=== PATIENT | male | born 1945 | race Caucasian/White ===

== ENCOUNTER → 2017-05-23 11:03 | Outpatient (CLI) | payer MEDICARE, SELFPAY ==
[2017-05-23 12:53] LABS: AST(SGOT) 24 U/L (15-37); Alanine Aminotransfer ALT/SGPT 33 U/L (16-61); Alkaline Phosphatase 79 U/L (45-117); Globulin 3.8 g/dL (2.2-4.2); Protein, Total 7.8 g/dL (6.4-8.2)
[2017-05-23 12:54] LABS: Cholesterol 120 mg/dL (200); High Density Lipoprotein 38 mg/dL; Triglycerides 101 mg/dL; Very Low Density Lipoprotein 20 mg/dL (5-40)
== END ==
PROVIDERS: Family Provider Internal Medicine; PCP Internal Medicine; Visit Provider Internal Medicine Cardiovascular Disease
DX: E78.5 Hyperlipidemia, unspecified (principal); I10 Essential (primary) hypertension; I25.10 Atherosclerotic heart disease of native coronary artery without angina pectoris; Z95.1 Presence of aortocoronary bypass graft; Z79.899 Other long term (current) drug therapy
CPT/HCPCS: 36415; 80061; 80076

== ENCOUNTER → 2017-11-14 12:41 | Outpatient (CLI) | payer MEDICARE, SELFPAY ==
[2017-11-14 14:52] LABS: PSA,Total - Annual Screen 1.84 ng/mL (0.00-4.00)
== END ==
PROVIDERS: Family Provider Internal Medicine; PCP Internal Medicine; Visit Provider Urology
DX: Z12.5 Encounter for screening for malignant neoplasm of prostate (principal)
CPT/HCPCS: 36415; 84153; G0103

== ENCOUNTER → 2017-11-15 10:05 | Outpatient (CLI) | payer MEDICARE, SELFPAY ==
[2017-11-15 10:58] LABS: AST(SGOT) 29 U/L (15-37); Alanine Aminotransfer ALT/SGPT 38 U/L (16-61); Albumin, Serum 3.7 g/dL (3.2-5.0); Alkaline Phosphatase 70 U/L (45-117); Bilirubin, Direct 0.16 mg/dL (0.00-0.30); Cholesterol 109 mg/dL (200); Globulin 3.3 g/dL (2.2-4.2); High Density Lipoprotein 34 mg/dL; Triglycerides 109 mg/dL; Very Low Density Lipoprotein 22 mg/dL (5-40)
== END ==
PROVIDERS: Family Provider Internal Medicine; PCP Internal Medicine; Visit Provider Internal Medicine Cardiovascular Disease
DX: E78.5 Hyperlipidemia, unspecified (principal); Z79.899 Other long term (current) drug therapy
CPT/HCPCS: 36415; 80061; 80076

== ENCOUNTER → 2018-05-25 10:36 | Outpatient (CLI) | payer MEDICARE, SELFPAY ==
[2018-02-28 14:22] VITALS: BMI 25.8
[2018-05-25 12:20] LABS: AST(SGOT) 33 U/L (15-37); Alanine Aminotransfer ALT/SGPT 37 U/L (16-61); Albumin, Serum 3.9 g/dL (3.2-5.0); Alkaline Phosphatase 68 U/L (45-117); Bilirubin, Direct 0.15 mg/dL (0.00-0.30); Cholesterol 118 mg/dL (200); Globulin 3.5 g/dL (2.2-4.2); High Density Lipoprotein 38 mg/dL; Protein, Total 7.4 g/dL (6.4-8.2); Triglycerides 116 mg/dL; Very Low Density Lipoprotein 23 mg/dL (5-40)
== END ==
PROVIDERS: Family Provider Internal Medicine; PCP Internal Medicine; Referring Provider Internal Medicine Cardiovascular Disease; Visit Provider Internal Medicine Cardiovascular Disease
DX: E78.5 Hyperlipidemia, unspecified (principal)
CPT/HCPCS: 36415; 80061; 80076

== ENCOUNTER → 2018-12-03 09:37 | Outpatient (CLI) | payer MEDICARE, SELFPAY ==
[2018-08-28 14:04] VITALS: BMI 24.0
[2018-12-03 11:40] LABS: AST(SGOT) 26 U/L (15-37); Alanine Aminotransfer ALT/SGPT 28 U/L (16-61); Albumin, Serum 3.6 g/dL (3.2-5.0); Alkaline Phosphatase 68 U/L (45-117); Bilirubin, Direct 0.12 mg/dL (0.00-0.30); Cholesterol 95 mg/dL (200); Globulin 3.5 g/dL (2.2-4.2); High Density Lipoprotein 35 mg/dL; Protein, Total 7.1 g/dL (6.4-8.2); Triglycerides 92 mg/dL; Very Low Density Lipoprotein 18 mg/dL (5-40)
[2018-12-03 15:27] LABS: PSA,Total - Annual Screen 1.49 ng/mL (0.00-4.00)
== END ==
PROVIDERS: Physician Assistant Medical; Urology; Family Provider Internal Medicine; PCP Internal Medicine; Referring Provider Internal Medicine Cardiovascular Disease; Visit Provider Internal Medicine Cardiovascular Disease
DX: E78.5 Hyperlipidemia, unspecified (principal); Z12.5 Encounter for screening for malignant neoplasm of prostate
CPT/HCPCS: 36415; 80061; 80076; 84153; G0103

== ENCOUNTER → 2019-06-23 10:29 | Outpatient (CLI) | payer MEDICARE, SELFPAY ==
[2019-03-12 14:09] VITALS: BMI 24.5
[2019-06-23 12:09] LABS: AST(SGOT) 28 U/L (15-37); Alanine Aminotransfer ALT/SGPT 42 U/L (16-61); Albumin, Serum 3.8 g/dL (3.2-5.0); Alkaline Phosphatase 78 U/L (45-117); Bilirubin, Direct 0.14 mg/dL (0.00-0.30); Cholesterol 114 mg/dL (200); Globulin 3.9 g/dL (2.2-4.2); High Density Lipoprotein 40 mg/dL; Protein, Total 7.7 g/dL (6.4-8.2); Triglycerides 104 mg/dL; Very Low Density Lipoprotein 21 mg/dL (5-40)
== END ==
PROVIDERS: PCP Internal Medicine; Referring Provider Physician Assistant Medical; Visit Provider Physician Assistant Medical
DX: E78.00 Pure hypercholesterolemia, unspecified (principal); E78.5 Hyperlipidemia, unspecified
CPT/HCPCS: 36415; 80061; 80076

== ENCOUNTER → 2020-02-03 10:24 | Outpatient (CLI) | payer MEDICARE, SELFPAY ==
[2019-09-04 15:22] VITALS: BMI 24.5
[2020-02-03 11:31] LABS: AST(SGOT) 43 U/L (15-37); Alanine Aminotransfer ALT/SGPT 60 U/L (16-61); Albumin, Serum 3.8 g/dL (3.2-5.0); Alkaline Phosphatase 99 U/L (45-117); Bilirubin, Direct 0.17 mg/dL (0.00-0.30); Cholesterol 96 mg/dL (200); Globulin 4.1 g/dL (2.2-4.2); High Density Lipoprotein 35 mg/dL; PSA,Total - Annual Screen 1.22 ng/mL (0.00-4.00); Protein, Total 7.9 g/dL (6.4-8.2); Triglycerides 87 mg/dL; Very Low Density Lipoprotein 17 mg/dL (5-40)
== END ==
PROVIDERS: PCP Internal Medicine; Referring Provider Physician Assistant Medical; Visit Provider Physician Assistant Medical
DX: Z12.5 Encounter for screening for malignant neoplasm of prostate (principal); E78.00 Pure hypercholesterolemia, unspecified
CPT/HCPCS: 36415; 80061; 80076; 84153; G0103

== ENCOUNTER → 2020-02-16 15:07 | Outpatient (CLI) | payer MEDICARE, SELFPAY ==
[2019-09-04 15:22] VITALS: BMI 24.5
--- NOTE | 2020-02-16 15:09 | US_ITS ---
STUDY: RENAL ULTRASOUND - COMPLETE REASON FOR EXAM: Male, 74 years old. CKD 3 TECHNIQUE: Ultrasound evaluation of the kidneys was performed with real-time and static palomino-scale imaging. COMPARISON: None. FINDINGS: RIGHT KIDNEY: Normal location of the right kidney, which is normal in size. The right kidney measures 9.7 x 5.0 x 4.9 cm. There is a normal cortex of the right kidney. The renal cortex measures 1.4 cm. There is no right renal mass or cyst. There are no right renal calculi. There is no right hydronephrosis. DISTAL RIGHT URETER: There is non-visualization of the distal right ureter. There is a visualized right ureteral jet. LEFT KIDNEY: Normal location of the left kidney, which is normal in size. The left kidney measures 10.5 x 4.9 x 5.3 cm. There is a normal cortex of the left kidney. The renal cortex measures 1.5 cm. There is no left renal mass or cyst. There are no left renal calculi. There is no left hydronephrosis. DISTAL LEFT URETER: There is non-visualization of the distal left ureter. There is a visualized left ureteral jet. BLADDER: The partially distended urinary bladder has a volume of 29 ml. US/Kidney and Bladder IMPRESSION: Normal ultrasound of the kidneys. Incompletely distended urinary bladder limiting evaluation. Electronically Signed: Bryan Rodríguez DO at 23:53 EDT Tel [phone], Service support ,
== END ==
PROVIDERS: PCP Internal Medicine; Referring Provider Internal Medicine Nephrology; Visit Provider Internal Medicine Nephrology
DX: N18.31 Chronic kidney disease, stage 3a (principal)
CPT/HCPCS: 76770

== ENCOUNTER → 2020-02-24 16:30 | Outpatient (CLI) | payer MEDICARE, SELFPAY ==
[2019-09-04 15:22] VITALS: BMI 24.5
--- NOTE | 2020-02-24 | CYSPIN_PTH ---
PATIENT: SEDA ACUNA LOC: [facility] U#:[id number] AGE/SX: 79/M ROOM: RE02/24/[address]: Dr. Darrius Singh MD : 1945 BED: DIS: SPEC #: [id number] RECD: 02/25/20 06:38 STATUS: PRADEEP REVanessa #: [id number] LOREN: 02/24/20 00:[address]: Darrius Singh DEPT: CYTOLOGY RECD BY: Katherin Palencia ENTERED: 02/25/20 06:38 SP TYPE: CYSPIN FL OTHR DR: Dr. Prince Celeste MD Tissues: Urine Procedures: Pap Stain (control) Special Stain Group II Cytospin Fluid HEADER OPERATION: Not noted PRE-OP DIAGNOSIS: Malignant neoplasm of bladder TISSUE SUBMITTED: Urine for cytology DIAGNOSIS CYTOLOGY Urine for cytology (cytospin): Rare atypical urothelial cells present. AM:perfecto 02/26/20 CYTOLOGY STUDY Slides are reviewed. CYTOLOGY GROSS Received is 25 ml of yellow cloudy fluid labeled with the patient's name and and designated per the requisition as urine. Submitted for cytology preparation. / perfecto 02/25/20 TC:5 CPT: 20828
[2020-02-24 18:00] LABS: Cytology, Body Fluid / CSF SEE PATHOLOGY REPORT
== END ==
PROVIDERS: PCP Internal Medicine; Visit Provider Urology
DX: Z85.51 Personal history of malignant neoplasm of bladder (principal)
CPT/HCPCS: 88108; 88313

== ENCOUNTER → 2020-03-09 10:03 | Outpatient (CLI) | payer MEDICARE, SELFPAY ==
[2019-09-04 15:22] VITALS: BMI 24.5
[2020-03-09 11:53] LABS: PTHIN 16.2 pg/mL (18.4-80.1)
[2020-03-09 11:57] LABS: Albumin, Serum 3.8 g/dL (3.2-5.0); BUN 22 mg/dL (7-18); BUN/Creat Ratio 12.9 RATIO (10-20); Calcium,Total 9.4 mg/dL (8.5-10.1); Chloride 100 mmol/L (98-107); Creatinine, Serum 1.71 mg/dL (0.70-1.30); EST Glomerular Filtration Rate 42 mL/min (>60); Est Glom Filt Rate - Afr Amer 51 mL/min (>60); Glucose 119 mg/dL (74-106); Phosphorus 2.4 mg/dL (2.5-4.9); Potassium 3.4 mmol/L (3.5-5.1); Sodium Level 139 mmol/L (136-145)
== END ==
PROVIDERS: PCP Internal Medicine; Referring Provider Internal Medicine Nephrology; Visit Provider Internal Medicine Nephrology
DX: N18.31 Chronic kidney disease, stage 3a (principal)
CPT/HCPCS: 36415; 80069; 83970

== ENCOUNTER → 2020-05-06 09:16 | Outpatient (CLI) | payer MEDICARE, SELFPAY ==
[2019-09-04 15:22] VITALS: BMI 24.5
[2020-05-06 10:10] LABS: Albumin, Serum 4.1 g/dL (3.2-5.0); BUN 28 mg/dL (7-18); BUN/Creat Ratio 16.5 RATIO (10-20); Calcium,Total 9.4 mg/dL (8.5-10.1); Chloride 105 mmol/L (98-107); EST Glomerular Filtration Rate 42 mL/min (>60); Est Glom Filt Rate - Afr Amer 51 mL/min (>60); Glucose 125 mg/dL (74-106); Phosphorus 3.2 mg/dL (2.5-4.9); Potassium 3.7 mmol/L (3.5-5.1); Sodium Level 138 mmol/L (136-145)
== END ==
PROVIDERS: PCP Internal Medicine; Referring Provider Internal Medicine Nephrology; Visit Provider Internal Medicine Nephrology
DX: N17.9 Acute kidney failure, unspecified (principal)
CPT/HCPCS: 36415; 80069

== ENCOUNTER → 2020-07-28 10:00 | Outpatient (CLI) | payer MEDICARE, SELFPAY ==
[2020-05-24 14:15] VITALS: BMI 25.0
[2020-07-28 10:35] LABS: Hematocrit 37.2 % (40-54); Hemoglobin 12.1 g/dL (13.0-16.5); Mean Corp Hgb Conc 32.5 g/dL (32-36); Mean Corpuscular Hgb 31.3 pg (27.0-32.0); Mean Corpuscular Volume 96.4 fL (80-94); Mean Platelet Vol. 10.3 fl (6.2-12.0); Platelet Count 228 K/mm3 (150-450); RBC Distribution Width CV 13.8 % (11.6-14.6); Red Blood Count 3.86 M/mm3 (4.6-6.2)
[2020-07-28 11:04] LABS: AST(SGOT) 28 U/L (15-37); Alanine Aminotransfer ALT/SGPT 37 U/L (16-61); Albumin, Serum 3.7 g/dL (3.2-5.0); Alkaline Phosphatase 87 U/L (45-117); Anion Gap 3 (5-15); BUN 23 mg/dL (7-18); BUN/Creat Ratio 14.8 RATIO (10-20); Bilirubin, Direct 0.21 mg/dL (0.00-0.30); Calcium,Total 9.1 mg/dL (8.5-10.1); Chloride 101 mmol/L (98-107); Cholesterol 97 mg/dL (200); Creatinine, Serum 1.55 mg/dL (0.70-1.30); EST Glomerular Filtration Rate 47 mL/min (>60); Est Glom Filt Rate - Afr Amer 57 mL/min (>60); Globulin 3.8 g/dL (2.2-4.2); Glucose 139 mg/dL (74-106); High Density Lipoprotein 44 mg/dL; Phosphorus 3.1 mg/dL (2.5-4.9); Potassium 3.7 mmol/L (3.5-5.1); Protein, Total 7.5 g/dL (6.4-8.2); Sodium Level 137 mmol/L (136-145); Triglycerides 54 mg/dL; Very Low Density Lipoprotein 11 mg/dL (5-40)
[2020-07-28 11:05] LABS: Protein, Urine (Random) 15.7 mg/dL (<11.9); Protein:Creat Ratio 469 mg/g CRE (0-200)
[2020-07-28 11:27] LABS: PTHIN 32.7 pg/mL (18.4-80.1)
== END ==
PROVIDERS: Physician Assistant Medical; PCP Internal Medicine; Referring Provider Internal Medicine Nephrology; Visit Provider Internal Medicine Nephrology
DX: N18.31 Chronic kidney disease, stage 3a (principal); E11.9 Type 2 diabetes mellitus without complications
CPT/HCPCS: 36415; 80048; 80061; 80076; 82570; 83970; 84100; 84156; 85027

== ENCOUNTER → 2020-12-01 14:06 | Outpatient (CLI) | payer MEDICARE, SELFPAY ==
[2020-05-24 14:15] VITALS: BMI 25.0
[2020-11-23 12:46] VITALS: BMI 24.5
--- NOTE | 2020-12-01 15:18 | NEURO ---
NCS and/or EMG Patient Report Ordering Doctor: Robert Miles DATE OF SERVICE: 12/01/20 Donell Menchaca presents for electrodiagnostic testing of the upper limbs. He reports numbness and tingling in both hands, worse on the right side. Electrodiagnostic findings: Median motor nerve demonstrates prolonged distal latency bilaterally with reduced conduction velocity on the right side. Normal ulnar motor response bilaterally prolonged right median F wave. Prolonged median sensory latency at the wrist and palm bilaterally. On needle EMG, all muscles tested in the upper limbs showed no evidence of denervation with normal motor unit action potentials. Electrodiagnostic impression: This is an abnormal study in the upper limbs. 1. Electrodiagnostic findings demonstrate bilateral median mononeuropathy. This is consistent with a moderate left carpal tunnel syndrome and an advanced right carpal tunnel syndrome. 2. No electrodiagnostic evidence is noted for cervical radiculopathy.
== END ==
PROVIDERS: PCP Internal Medicine; Referring Provider Orthopaedic Surgery; Visit Provider Orthopaedic Surgery
DX: G56.01 Carpal tunnel syndrome, right upper limb (principal); M54.2 Cervicalgia
CPT/HCPCS: 95886; 95913

== ENCOUNTER → 2021-02-01 10:41 | Outpatient (CLI) | payer MEDICARE, SELFPAY ==
[2020-05-24 14:15] VITALS: BMI 25.0
[2021-02-01 12:37] LABS: Protein, Urine (Random) 14.2 mg/dL (<11.9); Protein:Creat Ratio 97 mg/g CRE (0-200)
[2021-02-01 12:43] LABS: AST(SGOT) 26 U/L (15-37); Alanine Aminotransfer ALT/SGPT 36 U/L (16-61); Albumin, Serum 3.5 g/dL (3.2-5.0); Alkaline Phosphatase 72 U/L (45-117); Bilirubin, Direct 0.16 mg/dL (0.00-0.30); Cholesterol 94 mg/dL (200); Globulin 3.8 g/dL (2.2-4.2); High Density Lipoprotein 40 mg/dL; Protein, Total 7.3 g/dL (6.4-8.2); Triglycerides 73 mg/dL; Very Low Density Lipoprotein 15 mg/dL (5-40)
[2021-02-02 09:12] LABS: Anion Gap 5 (5-15); BUN 30 mg/dL (7-18); BUN/Creat Ratio 16.8 RATIO (10-20); Calcium,Total 9.2 mg/dL (8.5-10.1); Chloride 105 mmol/L (98-107); Creatinine, Serum 1.79 mg/dL (0.70-1.30); EST Glomerular Filtration Rate 40 mL/min (>60); Est Glom Filt Rate - Afr Amer 48 mL/min (>60); Glucose 127 mg/dL (74-106); Phosphorus 3.1 mg/dL (2.5-4.9); Potassium 4.1 mmol/L (3.5-5.1); Sodium Level 138 mmol/L (136-145)
== END ==
PROVIDERS: Internal Medicine Cardiovascular Disease; PCP Internal Medicine; Visit Provider Internal Medicine Nephrology
DX: E78.00 Pure hypercholesterolemia, unspecified (principal); N18.32 Chronic kidney disease, stage 3b; E11.9 Type 2 diabetes mellitus without complications
CPT/HCPCS: 36415; 80048; 80061; 80076; 82570; 84100; 84156

== ENCOUNTER 2021-05-10 10:49 | Outpatient (CLI) | payer MEDICARE, SELFPAY ==
[2021-05-10 12:03] LABS: Albumin, Serum 3.9 g/dL (3.2-5.0); BUN 25 mg/dL (7-18); BUN/Creat Ratio 14.5 RATIO (10-20); Calcium,Total 9.4 mg/dL (8.5-10.1); Chloride 103 mmol/L (98-107); Creatinine, Serum 1.73 mg/dL (0.70-1.30); EST Glomerular Filtration Rate 41 mL/min (>60); Est Glom Filt Rate - Afr Amer 50 mL/min (>60); Glucose 155 mg/dL (74-106); Phosphorus 2.6 mg/dL (2.5-4.9); Potassium 3.8 mmol/L (3.5-5.1); Sodium Level 136 mmol/L (136-145)
== END 2021-05-10 23:59 | disposition short-term general hospital (02) ==
LOC: LAB 10:51
PROVIDERS: PCP Internal Medicine; Referring Provider Internal Medicine Nephrology; Visit Provider Internal Medicine Nephrology
DX: N18.32 Chronic kidney disease, stage 3b (principal)
CPT/HCPCS: 36415; 80069

== ENCOUNTER 2021-07-11 09:13 | Outpatient (CLI) | payer MEDICARE, SELFPAY ==
--- NOTE | 2021-07-11 09:17 | CYSPIN_PTH ---
PATIENT: SEDA ACUNA LOC: LAB U#:[id number] AGE/SX: 75/M ROOM: RE07/11/[address]: Dr. Alayna Diamond DO : 1945 BED: DIS: 07/11/2021 SPEC #: [id number] RECD: 07/11/21 10:22 STATUS: PRADEEP MIMAVanessa #: [id number] LOREN: 07/11/21 09:[address]: Alayna Diamond DEPT: CYTOLOGY RECD BY: Katherin Palencia ENTERED: 07/11/21 10:22 SP TYPE: CYSPIN FL OTHR DR: MD Dr. Prince Monge MD Tissues: Urine Procedures: Pap Stain (control) Special Stain Group II Cytospin Fluid HEADER OPERATION: Not noted PRE-OP DIAGNOSIS: History of malignant neoplasm of bladder TISSUE SUBMITTED: Urine for cytology DIAGNOSIS CYTOLOGY Urine for cytology (cytospin): Negative for malignant cells. See comment. AM:perfecto 07/11/2021 COMMENT The specimen is markedly hypocellular. Clinical correlation is suggested. CYTOLOGY STUDY Slides are reviewed. CYTOLOGY GROSS Received is 5 ml of light yellow clear fluid labeled with the patient's name and and designated per the requisition as urine. Submitted for cytology preparation. / perfecto 07/11/2021 TC:5 CPT: 81087
[2021-07-11 09:51] LABS: Cytology, Body Fluid / CSF SEE PATHOLOGY REPORT
[2021-07-11 10:34] LABS: Protein, Urine (Random) 10.7 mg/dL (<11.9); Protein:Creat Ratio 302 mg/g CRE (0-200)
[2021-07-11 10:39] LABS: BUN 21 mg/dL (7-18); BUN/Creat Ratio 13.4 RATIO (10-20); Calcium,Total 9.7 mg/dL (8.5-10.1); Chloride 104 mmol/L (98-107); Creatinine, Serum 1.57 mg/dL (0.70-1.30); EST Glomerular Filtration Rate 46 mL/min (>60); Est Glom Filt Rate - Afr Amer 56 mL/min (>60); Glucose 162 mg/dL (74-106); PSA,Total- Diagnostic 1.29 ng/mL (0.0-4.0); Phosphorus 3.1 mg/dL (2.5-4.9); Potassium 3.6 mmol/L (3.5-5.1); Sodium Level 137 mmol/L (136-145)
== END 2021-07-11 23:59 | disposition home or self-care (01) ==
PROVIDERS: PCP Internal Medicine; Referring Provider Internal Medicine Nephrology; Visit Provider Internal Medicine Nephrology
DX: N18.32 Chronic kidney disease, stage 3b (principal); E11.22 Type 2 diabetes mellitus with diabetic chronic kidney disease; R97.20 Elevated prostate specific antigen [PSA]; Z85.51 Personal history of malignant neoplasm of bladder
CPT/HCPCS: 36415; 80069; 82570; 84153; 84156; 88108; 88313

== ENCOUNTER 2021-08-10 10:34 | Outpatient (CLI) | payer MEDICARE, SELFPAY ==
[2021-08-10 11:49] LABS: AST(SGOT) 42 U/L (15-37); Alanine Aminotransfer ALT/SGPT 63 U/L (16-61); Albumin, Serum 3.6 g/dL (3.2-5.0); Alkaline Phosphatase 92 U/L (45-117); Cholesterol 112 mg/dL (200); Globulin 4.2 g/dL (2.2-4.2); High Density Lipoprotein 37 mg/dL; Protein, Total 7.8 g/dL (6.4-8.2); Triglycerides 145 mg/dL; Very Low Density Lipoprotein 29 mg/dL (5-40)
== END 2021-08-10 23:59 | disposition home or self-care (01) ==
LOC: LAB 10:36
PROVIDERS: PCP Internal Medicine; Referring Provider Nurse Practitioner Family; Visit Provider Nurse Practitioner Family
DX: E78.00 Pure hypercholesterolemia, unspecified (principal)
CPT/HCPCS: 36415; 80061; 80076

== ENCOUNTER → 2021-10-21 | Outpatient (CLI) | payer MEDICARE, SELFPAY ==
--- NOTE | 2021-10-21 06:41 | ECHOD_ITS ---
Reason For Study: s/p CABG Procedure This was a 2D Doppler, Color Flow transthoracic echocardiogram. The exam was of adequate technical quality. Exam performed in department. Left Ventricle Normal LV size. Segmental dysfunction with preserved ejection fraction (see wall motion). The estimated ejection fraction is 60 %. No evidence for diastolic dysfunction. Infero-Basal: Hypokinetic. Mid-Inferior: Hypokinetic. Right Ventricle Normal RV size. Normal systolic function. Atria The left atrium is mildly enlarged. Normal right atrium. No doppler evidence for ASD. Mitral Valve There is no mitral annular calcification. Normal mitral valve. Mild (1+) mitral valve insufficiency. Tricuspid Valve Normal tricuspid valve. Moderate (2+) tricuspid valve insufficiency. Right ventricular systolic pressure estimated to be 36 mmHg. Aortic Valve Trisinus/trileaflet aortic valve. Mild focal aortic valve calcification. Trivial aortic valve insufficiency. Pulmonic Valve The pulmonic valve is not well visualized. Trivial pulmonic valve insufficiency. Great Vessels Normal sized aortic root. Pericardium/Pleural No pericardial effusion. MMode/2D Measurements & Calculations LVIDd: 4.9 cm IVSd: 0.80 cm Ao root diam: 3.0 cm LVIDs: 3.3 cm LVPWd: 0.88 cm LA dimension: 4.0 cm RVDd: 3.8 cm FS: 31.7 % LAV(MOD-bp): 56.4 ml LA A4 area: 19.9 cm2 RA A4 area: 17.8 cm2 LAV(MOD-bp) Indexed: 32.1 ml/m2 LAV(MOD-sp2): 51.4 ml LAV(MOD-sp4): 55.3 ml Time Measurements MV dec time: 0.27 sec Doppler Measurements & Calculations MV E max kannan: 70.2 cm/sec Lat Peak E' Kannan: 8.2 cm/sec MV V2 max: 91.1 cm/sec MV A max kannan: 92.1 cm/sec E/E' lat: 8.6 MV max P.3 mmHg MV E/A: 0.76 MV V2 mean: 40.6 cm/sec MV mean P.87 mmHg MV V2 VTI: 23.4 cm MV P1/2t max kannan: 79.8 cm/sec Ao V2 max: 125.6 cm/sec AI max kannan: 335.2 cm/sec MV P1/2t: 50.2 msec Ao max P.3 mmHg AI max P.0 mmHg MV dec slope: 465.9 cm/sec2 AI dec slope: 142.3 cm/sec2 MVA(P1/2t): 4.4 cm2 AI P1/2t: 690.0 msec LV V1 max: 75.9 cm/sec PA V2 max: 101.1 cm/sec TR max kannan: 287.5 cm/sec LV V1 max P.3 mmHg TR max P.1 mmHg ECHO/Echo Complete Interpretation Summary Segmental dysfunction with preserved ejection fraction (see wall motion). The estimated ejection fraction is 60 %. The left atrium is mildly enlarged. Mild (1+) mitral valve insufficiency. Moderate (2+) tricuspid valve insufficiency. Mild focal aortic valve calcification. Trivial aortic valve insufficiency. Trivial pulmonic valve insufficiency. Right ventricular systolic pressure estimated to be 36 mmHg. No evidence for diastolic dysfunction. Ordering Physician: Hung Markham Referring Physician: Prince Celeste M.D. Performed By: Nato Samuels RCS
--- NOTE | 2021-10-21 13:41 | STRESSREP ---
Stress Test Report Date: 10-21-2021 Procedure: Exercise tolerance test/imaging study Indications: Fatigue; CAD; CABG Consent: Per the patient Procedure: The patient exercised on a Xu protocol for 6 minutes and 30 seconds completing Stage II and 30 seconds of Stage III achieving a peak heart rate of 148 bpm (102% predicted maximal heart rate) with a peak blood pressure 170/80 mmHg and a peak MET capacity of 8 METs. The baseline ECG demonstrated normal sinus rhythm; nonspecific T wave abnormality. The peak exercise ECG demonstrated continued sinus rhythm with beat to beat nonspecific ST/T wave abnormality. There was an occasional PVC pretest, during exercise, and recovery and occasional ventricular couplet during exercise. The functional capacity was considered good. There was no complaint of chest discomfort during exercise or recovery. The examination was discontinued secondary to dyspnea. Impression: 1. Technically adequate (percent predicted maximal heart rate greater than 85%) exercise tolerance test 2. Peak exercise ECG with beat to beat nonspecific ST/T wave abnormality 3. There was an occasional PVC pretest, during exercise, and recovery and an occasional ventricular couplet during exercise 4. Nuclear images pending Myocardial perfusion imaging study: Technique: The patient was injected with 11.8 mCi of technetium 99m Cardiolite and subsequently rest SPECT Cardiolite nuclear imaging was obtained in the horizontal long, vertical long, and short axis views. The patient exercised on a Xu protocol for 6 minutes and 30 seconds completing Stage II and 30 seconds of Stage III achieving a peak heart rate of 148 bpm (102% predicted maximal heart rate) with a peak blood pressure 170/80 mmHg and a peak MET capacity of 8 METs. The patient was injected with 34.3 mCi of technetium 99m Cardiolite and subsequently stress SPECT Cardiolite nuclear imaging was obtained in the horizontal long, vertical long, and short axis views. A gated Cardiolite study at peak stress was obtained. Interpretation: Rest and stress SPECT Cardiolite nuclear imaging status post realignment, normalization, and attenuation correction, demonstrates on the preattenuation correction images the appearance of diminished myocardial perfusion/tracer uptake in portions of the basal inferolateral segments without significant change between rest and stress. These findings are also noted on the rest and stress polar map images. On the post attenuation correction images there appears to be relative uniform tracer uptake and myocardial perfusion appearing within normal limits. There is diminished end-systolic thickening and brightening in the aforementioned areas.. The gated Cardiolite study demonstrates myocardial thickening and inward wall motion. The reported LVEF is 67%. Impression: 1. Rest and stress SPECT Cardiolite nuclear imaging demonstrate demonstrate on the preattenuation correction images and area of diminished myocardial perfusion/tracer uptake in portions of the basal inferolateral segments without significant change between rest and stress which is not reproduced on the post attenuation correction images. The aforementioned findings may be compatible with an area of previous myocardial injury/infarction, however, there are no myocardial perfusion changes considered diagnostic for associated stress-induced myocardial ischemia.. 2. The gated Cardiolite study reports an LVEF of 67%. This note was generated with [employer] software. It may contain incorrect words, spelling, and punctuation that were not noted in checking the note before signing.
== END | disposition home or self-care (01) ==
PROVIDERS: PCP Internal Medicine; Referring Provider Internal Medicine Cardiovascular Disease; Visit Provider Internal Medicine Cardiovascular Disease
DX: I25.10 Atherosclerotic heart disease of native coronary artery without angina pectoris (principal); R53.83 Other fatigue; Z95.1 Presence of aortocoronary bypass graft
CPT/HCPCS: 78452; 93017; 93306; A9500; A4216

== ENCOUNTER → 2022-02-15 | Outpatient (CLI) | payer MEDICARE, SELFPAY ==
[2022-02-15 11:03] LABS: Protein, Urine (Random) 13.5 mg/dL (<11.9); Protein:Creat Ratio 199 mg/g CRE (0-200)
[2022-02-15 11:28] LABS: AST(SGOT) 19 U/L (15-37); Alanine Aminotransfer ALT/SGPT 29 U/L (16-61); Albumin, Serum 3.7 g/dL (3.2-5.0); Alkaline Phosphatase 73 U/L (45-117); Anion Gap 4 (5-15); BUN 29 mg/dL (7-18); BUN/Creat Ratio 18.4 RATIO (10-20); Bilirubin, Direct 0.16 mg/dL (0.00-0.30); Calcium,Total 9.1 mg/dL (8.5-10.1); Chloride 102 mmol/L (98-107); Cholesterol 111 mg/dL (200); Creatinine, Serum 1.58 mg/dL (0.70-1.30); EST Glomerular Filtration Rate 46 mL/min (>60); Est Glom Filt Rate - Afr Amer 55 mL/min (>60); Glucose 154 mg/dL (74-106); High Density Lipoprotein 40 mg/dL; Phosphorus 2.7 mg/dL (2.5-4.9); Potassium 3.8 mmol/L (3.5-5.1); Protein, Total 7.7 g/dL (6.4-8.2); Sodium Level 136 mmol/L (136-145); Triglycerides 116 mg/dL; Very Low Density Lipoprotein 23 mg/dL (5-40)
== END | disposition home or self-care (01) ==
LOC: LAB 10:06
PROVIDERS: Nurse Practitioner Family; PCP Internal Medicine; Referring Provider Internal Medicine Nephrology; Visit Provider Internal Medicine Nephrology
DX: N18.32 Chronic kidney disease, stage 3b (principal); E11.22 Type 2 diabetes mellitus with diabetic chronic kidney disease
CPT/HCPCS: 36415; 80048; 80061; 80076; 82570; 84100; 84156

== ENCOUNTER → 2022-07-26 | Outpatient (CLI) | payer MEDICARE, SELFPAY ==
[2022-07-26 11:58] LABS: AST(SGOT) 23 U/L (15-37); Alanine Aminotransfer ALT/SGPT 29 U/L (16-61); Albumin, Serum 3.6 g/dL (3.2-5.0); Alkaline Phosphatase 71 U/L (45-117); Bilirubin, Direct 0.17 mg/dL (0.00-0.30); Cholesterol 100 mg/dL (200); Globulin 3.9 g/dL (2.2-4.2); High Density Lipoprotein 38 mg/dL; PSA,Total - Annual Screen 1.13 ng/mL (0.00-4.00); Protein, Total 7.5 g/dL (6.4-8.2); Triglycerides 93 mg/dL; Very Low Density Lipoprotein 19 mg/dL (5-40)
== END | disposition home or self-care (01) ==
LOC: LAB 10:46
PROVIDERS: Nurse Practitioner Family; PCP Internal Medicine; Referring Provider Urology; Visit Provider Urology
DX: E11.22 Type 2 diabetes mellitus with diabetic chronic kidney disease (principal); N18.32 Chronic kidney disease, stage 3b; Z12.5 Encounter for screening for malignant neoplasm of prostate
CPT/HCPCS: 36415; 80061; 80076; 84153; G0103

== ENCOUNTER → 2022-09-20 | Outpatient (CLI) | payer MEDICARE, SELFPAY ==
[2022-09-20 11:56] LABS: Protein, Urine (Random) 29.3 mg/dL (<11.9); Protein:Creat Ratio 97 mg/g CRE (0-200)
[2022-09-20 12:00] LABS: Albumin, Serum 3.6 g/dL (3.2-5.0); BUN 31 mg/dL (7-18); BUN/Creat Ratio 16.5 RATIO (10-20); Calcium,Total 9.5 mg/dL (8.5-10.1); Chloride 101 mmol/L (98-107); Creatinine, Serum 1.88 mg/dL (0.70-1.30); EST Glomerular Filtration Rate 37 mL/min (>60); Est Glom Filt Rate - Afr Amer 45 mL/min (>60); Glucose 149 mg/dL (74-106); Phosphorus 2.6 mg/dL (2.5-4.9); Sodium Level 136 mmol/L (136-145)
== END | disposition home or self-care (01) ==
LOC: LAB 10:58
PROVIDERS: PCP Internal Medicine; Visit Provider Internal Medicine Nephrology
DX: E11.22 Type 2 diabetes mellitus with diabetic chronic kidney disease (principal); N18.32 Chronic kidney disease, stage 3b
CPT/HCPCS: 36415; 80069; 82570; 84156

== ENCOUNTER → 2022-09-27 | Outpatient (CLI) | payer MEDICARE, SELFPAY ==
[2022-09-27 18:15] LABS: Bacteria 0 SEEN /hpf (None Seen); Mucous, Urine 0 SEEN /hpf (<or=2+); Red Blood Cells-Urine 0 SEEN /hpf (0-5); Squamous Epithelial Cells - UA 0 SEEN /hpf (0-5); White Blood Cells 0 SEEN /hpf (0-5)
[2022-09-27 18:26] LABS: Color, Urine Yellow (Yellow); Glucose, Dipstick 1000 mg/dl (Normal); Ketone-Dipstick Negative (Negative); Leukocyte Esterase-Dipstick Negative /ul (Negative); Nitrite-Dipstick Negative (Negative); Occult Blood-Urine Negative /ul (Negative); Protein-Dipstick Negative (Negative); Urine Bilirubin Dipstick Negative (Negative); Urine Clarity Clear (Clear); Urine Urobilinogen Normal (Normal)
== END | disposition home or self-care (01) ==
PROVIDERS: PCP Internal Medicine; Visit Provider Internal Medicine Nephrology
DX: R30.0 Dysuria (principal)
CPT/HCPCS: 81001; 87086

== ENCOUNTER → 2022-10-25 | Outpatient (CLI) | payer MEDICARE, SELFPAY ==
[2022-10-25 13:40] LABS: Albumin, Serum 3.4 g/dL (3.2-5.0); BUN 32 mg/dL (7-18); BUN/Creat Ratio 18.3 RATIO (10-20); Calcium,Total 8.7 mg/dL (8.5-10.1); Chloride 106 mmol/L (98-107); Creatinine, Serum 1.75 mg/dL (0.70-1.30); EST Glomerular Filtration Rate 40 mL/min (>60); Est Glom Filt Rate - Afr Amer 49 mL/min (>60); Glucose 144 mg/dL (74-106); Phosphorus 2.7 mg/dL (2.5-4.9); Sodium Level 137 mmol/L (136-145)
== END | disposition home or self-care (01) ==
LOC: LAB 12:48
PROVIDERS: PCP Internal Medicine; Referring Provider Internal Medicine Nephrology; Visit Provider Internal Medicine Nephrology
DX: N17.9 Acute kidney failure, unspecified (principal); N18.32 Chronic kidney disease, stage 3b
CPT/HCPCS: 36415; 80069

== ENCOUNTER → 2022-11-29 | Outpatient (CLI) | payer MEDICARE, SELFPAY ==
[2022-11-29 11:23] LABS: AST(SGOT) 22 U/L (15-37); Alanine Aminotransfer ALT/SGPT 28 U/L (16-61); CPK Total, Creatine Kinase 54 U/L (39-308); Cholesterol 105 mg/dL (200); High Density Lipoprotein 40 mg/dL; Triglycerides 83 mg/dL; Very Low Density Lipoprotein 17 mg/dL (5-40)
== END | disposition home or self-care (01) ==
LOC: LAB 09:48
PROVIDERS: PCP Internal Medicine; Referring Provider Internal Medicine Cardiovascular Disease; Visit Provider Internal Medicine Cardiovascular Disease
DX: E78.00 Pure hypercholesterolemia, unspecified (principal); I10 Essential (primary) hypertension; I25.10 Atherosclerotic heart disease of native coronary artery without angina pectoris
CPT/HCPCS: 36415; 80061; 82550; 84450; 84460

== ENCOUNTER → 2022-12-26 | Outpatient (CLI) | payer MEDICARE, SELFPAY ==
[2022-12-26 13:37] LABS: Albumin, Serum 3.6 g/dL (3.2-5.0); BUN 26 mg/dL (7-18); BUN/Creat Ratio 16.2 RATIO (10-20); Calcium,Total 9.1 mg/dL (8.5-10.1); Chloride 104 mmol/L (98-107); EST Glomerular Filtration Rate 45 mL/min (>60); Est Glom Filt Rate - Afr Amer 54 mL/min (>60); Glucose 141 mg/dL (74-106); Phosphorus 2.8 mg/dL (2.5-4.9); Potassium 3.9 mmol/L (3.5-5.1); Sodium Level 137 mmol/L (136-145)
== END | disposition home or self-care (01) ==
PROVIDERS: PCP Internal Medicine; Referring Provider Internal Medicine Nephrology; Visit Provider Internal Medicine Nephrology
DX: N18.32 Chronic kidney disease, stage 3b (principal)
CPT/HCPCS: 36415; 80069

== ENCOUNTER → 2023-01-10 | Outpatient (CLI) | payer MEDICARE, SELFPAY ==
--- NOTE | 2023-01-10 13:03 | CDU_ITS ---
Reason For Study: CAD/ASHD Rt. Velocities/BP Lt. Velocities/BP Prox CCA 78.0/11.0 cm/sec. Prox CCA 71.3/10.9 cm/sec. Mid CCA 63.9/13.8 cm/sec. Mid CCA 69.1/8.7 cm/sec. Dist CCA 65.8/14.7 cm/sec. Dist CCA 77.9/12.0 cm/sec. Prox ICA 47.1/11.2 cm/sec. Prox ICA 84.6/9.7 cm/sec. Mid ICA 58.5/14.1 cm/sec. Mid ICA 79.7/12.2 cm/sec. Dist ICA 66.0/19.7 cm/sec. Dist ICA 95.7/18.3 cm/sec. Rt. ICA/CCA = 66.0/63.9=1.0. Lt. ICA/CCA = 95.7/69.1=1.2. Prox ECA 70.5/8.1 cm/sec. Prox ECA 82.3/4.3 cm/sec. Rt. Vert. 43.4/9.4 cm/sec. Lt. Vert. 58.8/14.6 cm/sec. Right Extracranial There is intimal thickening but no significant atherosclerotic plaque noted in the right common carotid artery. There is heterogeneous, irregular atherosclerotic plaque noted in the right internal carotid artery. There is heterogeneous, irregular atherosclerotic plaque noted in the right external carotid artery. Antegrade flow is noted in the right vertebral artery. Left Extracranial There is heterogeneous, irregular atherosclerotic plaque noted in the left common carotid artery. There is heterogeneous, irregular atherosclerotic plaque noted in the left internal carotid artery. There is homogeneous, irregular atherosclerotic plaque noted in the left external carotid artery. Antegrade flow is noted in the left vertebral artery. Procedure Carotid Duplex 37510. This is a Carotid Duplex examination using B-mode, color flow and specral Doppler. Exam performed in department. VL/Carotid Duplex Ultrasound Interpretation Summary Mild (<50%) stenosis right extracranial internal carotid. Mild (<50%) stenosis left extracranial internal carotid. Flow within the vertebral arteries is antegrade bilaterally. Ordering Physician: David Fox Referring Physician: Prince Celeste Performed By: Katharine Sanders, LEANA, RVT
--- NOTE | 2023-01-10 13:03 | ECHOD_ITS ---
Reason For Study: ASHD Procedure This was a 2D Doppler, Color Flow transthoracic echocardiogram. Exam performed in department. Left Ventricle Normal size and thickness. The left ventricular ejection fraction is 65 %. Normal diastology for age. Right Ventricle Normal right ventricle. Atria The left atrium is moderately enlarged. The right atrium is moderately enlarged. Mitral Valve Mild diffuse mitral valve thickening. Moderate (2+) mitral valve insufficiency. Tricuspid Valve Moderate (2+) tricuspid valve insufficiency. Right ventricular systolic pressure estimated to be 39 mmHg. Aortic Valve Trisinus/trileaflet aortic valve. Mild-Moderate (1-2+) aortic valve insufficiency. Pulmonic Valve The pulmonic valve is not well visualized. Mild (1+) pulmonic valve insufficiency. Great Vessels Normal sized aortic root. Pericardium/Pleural No pericardial effusion. MMode/2D Measurements & Calculations LVIDd: 4.6 cm IVSd: 0.78 cm Ao root diam: 3.1 cm LVIDs: 3.2 cm LVPWd: 0.94 cm RVDd: 3.8 cm FS: 30.1 % LAV(MOD-bp): 43.3 ml LVAd ap4: 30.4 cm2 SV(MOD-sp4): 56.4 ml LAV(MOD-bp) Indexed: 24.9 ml/m2 LVLd ap4: 8.4 cm LAV(MOD-sp2): 44.9 ml EDV(MOD-sp4): 90.2 ml LAV(MOD-sp4): 42.8 ml EDV(sp4-el): 92.7 ml LVAs ap4: 16.2 cm2 LVLs ap4: 6.9 cm ESV(MOD-sp4): 33.8 ml ESV(sp4-el): 32.4 ml EF(MOD-sp4): 62.5 % EF(sp4-el): 65.0 % SV(sp4-el): 60.3 ml LA A4 area: 17.0 cm2 LA dimension(2D): 3.6 cm RA A4 area: 14.8 cm2 Time Measurements MV dec time: 0.21 sec Doppler Measurements & Calculations MV E max kannan: 77.8 cm/sec Lat Peak E' Kannan: 10.5 cm/sec Med Peak E' Kannan: 7.6 cm/sec MV A max kannan: 64.3 cm/sec E/E' lat: 7.4 E/E' med: 10.3 MV E/A: 1.2 Ao V2 max: 119.7 cm/sec AI max kannan: 380.4 cm/sec LV V1 max: 62.2 cm/sec Ao max P.7 mmHg AI max P.9 mmHg LV V1 max P.5 mmHg AI dec slope: 240.0 cm/sec2 AI P1/2t: 464.3 msec PA V2 max: 69.8 cm/sec PI end-d kannan: 92.3 cm/sec TR max kannan: 291.9 cm/sec TR max P.1 mmHg ECHO/Echo Complete Interpretation Summary The left ventricular ejection fraction is 65 %. The left atrium is moderately enlarged. The right atrium is moderately enlarged. Moderate (2+) mitral valve insufficiency. Moderate (2+) tricuspid valve insufficiency. Right ventricular systolic pressure estimated to be 39 mmHg. Mild-Moderate (1-2+) aortic valve insufficiency. Ordering Physician: David Fox Referring Physician: ASHA ALVAREZ Performed By: Gina Shirley, LEANA
== END | disposition home or self-care (01) ==
LOC: CVS 12:59
PROVIDERS: PCP Internal Medicine; Referring Provider Internal Medicine Cardiovascular Disease; Visit Provider Internal Medicine Cardiovascular Disease
DX: I25.10 Atherosclerotic heart disease of native coronary artery without angina pectoris (principal); R42 Dizziness and giddiness
CPT/HCPCS: 93306; 93880

== ENCOUNTER → 2023-06-05 | Outpatient (CLI) | payer MEDICARE, SELFPAY ==
[2023-06-05 11:51] LABS: AST(SGOT) 21 U/L (15-37); Alanine Aminotransfer ALT/SGPT 27 U/L (16-61); Albumin, Serum 3.6 g/dL (3.2-5.0); Alkaline Phosphatase 72 U/L (45-117); Bilirubin, Direct 0.19 mg/dL (0.00-0.30); Cholesterol 115 mg/dL (200); Globulin 3.8 g/dL (2.2-4.2); High Density Lipoprotein 42 mg/dL; Protein, Total 7.4 g/dL (6.4-8.2); Triglycerides 101 mg/dL; Very Low Density Lipoprotein 20 mg/dL (5-40)
== END | disposition home or self-care (01) ==
LOC: LAB 10:21
PROVIDERS: PCP Internal Medicine; Referring Provider Nurse Practitioner Family; Visit Provider Nurse Practitioner Family
DX: E78.00 Pure hypercholesterolemia, unspecified (principal)
CPT/HCPCS: 36415; 80061; 80076

== ENCOUNTER 2023-07-17 11:20 | Observation (INO) | payer MEDICARE, SELFPAY ==
[2023-07-17 11:21] VITALS: BP 147/82; PULSE 79; PULSE 80; RESP 14; TEMP 35.5; O2SAT 100; O2SAT 98; BMI 24.0
--- NOTE | 2023-07-17 11:48 | EX.ED.DYSGE1 ---
HPI History of Present Illness Chief Complaint: Rash Informant: patient, spouse/S.O. and family Narrative Narrative: 77-year-old male presenting to the emergency department with the chief complaint of double vision. Patient states that on 07 July he was in his garage and close the door to hit him on top of the head. He states that shortly thereafter he began to have a rash on his scalp. He was seen by primary care on Sunday and referred to dermatology. Dermatology saw him on Sunday and felt that his rash was consistent with shingles and he was started on prednisone and valacyclovir. He also was referred to ophthalmology where he was started on neomycin-polymyxin B-dexamethasone. Yesterday he developed double vision and saw ophthalmology today. During that examination it was noted he had a dilated left pupil. It was fully dilated for examination by ophthalmology. 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 He was sent to the emergency department for evaluation. [facility] Medical History Abnormal result of cardiovascular function study Abnormal stress test Atherosclerotic heart disease of [place] coronary artery without angina pectoris Chest pain, precordial Diabetes mellitus type 2 with peripheral artery disease Dizziness Dyspnea, unspecified Edema Essential hypertension Family history of completed stroke Family history of ischemic heart disease and other diseases of the circulatory system Fatigue Fatigue Herpes zoster Hypertension Long-term use of high-risk medication Old myocardial infarction Pure hypercholesterolemia Home Medications nitroglycerin 0.4 mg sublingual tablet 0.4 mg sublingual Q5M PRN Chest Pain 05/12/14 [History Last Taken Unknown] tamsulosin 0.4 mg capsule 0.4 mg PO DAILY urine flow 05/12/14 [History Last Taken 07/16/23] sildenafil 100 mg tablet (Viagra) 100 mg PO DAILY PRN sexual activity 03/12/19 [History Last Taken Unknown] metformin 500 mg tablet 1,000 mg PO DAILY diabetes 05/24/20 [History Last Taken 07/17/23] acetaminophen 500 mg tablet (Tylenol Extra Strength) 500 mg PO Q6H PRN pain, fever 10/05/21 [History Last Taken Unknown] cetirizine 10 mg tablet 10 mg PO DAILY sinus 10/05/21 [History Last Taken 07/17/23] amlodipine 10 mg tablet 10 mg PO QDAY blood prerssure #90 tabs 10/30/23 [Rx Last Taken 07/17/23] metoprolol tartrate 50 mg tablet 50 mg PO BID heart #180 tabs 02/19/23 [Rx Last Taken 07/17/23 08:52] atorvastatin 40 mg tablet 40 mg PO QHS cholesterol #90 tabs 06/07/23 [Rx Last Taken 07/16/23] glipizide 2.5 mg tablet, extended release 24 hr 2.5 mg PO DAILY diabetes 06/07/23 [History Last Taken 07/17/23] gabapentin 100 mg capsule 200 mg PO QHS shingle pain at night time 07/17/23 [History Last Taken 07/16/23] multivitamin with minerals-folic acid 80 mcg chewable tablet (Centrum Adult 50 Plus) 1 tab PO DAILY suppliment 07/17/23 [History Last Taken 07/17/23] xzlrmvvf-ovwwpwlho-bfdqvcst 3.5 mg/mL-10,000 unit/mL-0.1% eye drops 1 drp LEFT EYE 4X/DAY shingles 07/17/23 [History Last Taken 07/17/23] prednisone 20 mg tablet 20 mg PO DAILY steroid 07/17/23 [History Last Taken 07/17/23] valacyclovir 1 gram tablet 1,000 mg PO TID shingles 07/17/23 [History Last Taken 07/17/23] Allergy/AdvReac Type Severity Reaction Status Date / Time Penicillins Allergy Unknown Verified 06/07/23 13:47 Family History Mother CVA (cerebral vascular accident) Brother CAD (coronary artery disease) Surgical History Aortocoronary bypass status (~06/30/08) History of carpal tunnel surgery Social History (Updated 07/17/23 @ 15:39 by Kiara Gloria) Smoking Status: Former smoker alcohol intake: never ROS ROS ED Constitutional Constitutional ED: Denies chills, fever(s) or weight loss Eyes Eyes: Reports change in vision and diplopia ENT ENT ED: Denies ear pain, rhinorrhea or sore throat Cardiovascular Cardiovascular: Denies chest pain, orthopnea, palpitations or racing heartbeat Respiratory/Chest Respiratory/Chest: Denies cough, dyspnea or orthopnea Gastrointestinal Gastrointestinal: Denies abdominal pain, diarrhea, nausea or vomiting Genitourinary Genitourinary ED: Denies dysuria, hematuria or urinary frequency Musculoskeletal Musculoskeletal: Denies arthralgias or myalgias Integumentary Reports rash; Denies abscess Neurologic Neurologic: Reports paresthesias; Denies headache(s) or weakness Psychiatric Psychiatric: Denies anxiety, depression, suicidal ideation or suicidal thoughts Endocrine Endocrinology: Denies polydipsia, polyphagia or polyuria Allergic/Immunologic Allergic/Immunologic ED: Denies mouth swelling, tongue swelling or urticaria EXAM Physical Exam Const Vital Signs: 07/17/23 11:21 07/17/23 11:21 07/17/23 13:21 Temperature 95.9 F L 98 F Temperature Source Temporal Temporal Pulse Rate 80 79 78 Respiratory Rate 14 14 23 H Blood Pressure 147/82 H 147/82 H 143/74 H Blood Pressure Mean 103 103 97 Pulse Ox 98 100 97 Oxygen Delivery Method Room Air Room Air Room Air 07/17/23 14:11 Temperature 98 F Temperature Source Pulse Rate 77 Respiratory Rate 21 H Blood Pressure 143/74 H Blood Pressure Mean 97 Pulse Ox 97 Oxygen Delivery Method Positive well nourished and well developed General Appearance ED: well developed HEENT Reports normocephalic, head/scalp atraumatic, TM's clear and moist mucous membranes HEENT Narrative: There are healing lesions on the hard palate and gumline of the left side Tympanic Membrane ED: Yes TM's clear Eyes Eyes Narrative: Left pupil is dilated. Double vision resolves if he covers the right eye and it resolves if he covers the left eye. I do not appreciate subconjunctival injection Neck no lymphadenopathy, supple and no JVD Resp normal respiratory effort and clear to auscultation bilaterally Cardio regular rate, regular rhythm and no murmurs GI normal to inspection, nondistended, normoactive bowel sounds and non-tender Palpation: soft Back/Spine no CVA tenderness and normal ROM Extremity normal to inspection General Extremety ED: Negative for edema General Extremity: Negative for edema Neuro oriented x3 and CN's II-XII intact bilaterally Sensorium / Orientation: alert Motor Exam: strength 5/5 throughout Psych mental status grossly normal Mood & Affect: Negative for depressed or tearful Skin no wounds Skin Narrative: There are lesions consistent with a zoster involving the forehead left face left nose left maxillary region. Most of these are starting to be crusted over. There is mild redness of the skin MDM MDM MDM Narrative Medical decision making narrative: To the trauma and then the developing nerve palsy CT of the brain was obtained which does not demonstrate any intracranial hemorrhage or mass. White count elevated 11.5 probable due to steroid use. Creatinine 1.85 with a BUN of 28. Glucose 229 with normal liver enzymes. I spoke with infectious disease (Dr. Trinidad). His recommendation is for IV acyclovir. Continuation of steroids. I spoke with her hospitalist who will be admitting. History & Record Review Discussion w/independent historian: Patient and Family Lab Data Attestation: I reviewed the patient's lab results. Labs: Laboratory Results - last 24 hr 07/17/23 12:00 WBC 11.5 H RBC 4.64 Hgb 14.0 Hct 42.6 MCV 91.8 MCH 30.2 MCHC 32.9 RDW Std Deviation 46.6 H RDW Coeff of Mary 13.7 Plt Count 262 MPV 10.1 Immature Gran % (Auto) 0.400 Neut % (Auto) 88.1 H Lymph % (Auto) 8.3 L [place] % (Auto) 2.9 Eos % (Auto) 0.0 Baso % (Auto) 0.3 Absolute Neuts (auto) 10.1 H Absolute Lymphs (auto) 0.95 Nucleated RBC % 0 Sodium 137 Potassium 3.8 Chloride 101 Carbon Dioxide 26.0 Anion Gap 10 BUN 28 H Creatinine 1.85 H Estim Creat Clear Calc 29.09 Est GFR (MDRD) Af Amer 46 L Est GFR (MDRD) Non-Af 38 L BUN/Creatinine Ratio 15.1 Glucose 229 H Calcium 9.4 Total Bilirubin 0.80 Direct Bilirubin 0.24 AST 21 ALT 28 Alkaline Phosphatase 64 Total Protein 7.7 Albumin 3.7 Globulin 4.0 Radiography Diagnostic Testing: Clinical Impression(s) from Imaging Studies Brain CT 07/17/23 12:32 IMPRESSION: Chronic involutional changes of the brain. Electronically Signed: Favian Jaramillo MD at 13:24 EDT , Management Discussion w/another healthcare provider: Hospitalist (Dr. Yin) and Loss Prevention Guard (ID (Dr. Joyce)) Discharge Plan Dx/Rx/DC Orders Clinical Impression: Diplopia, 6th nerve palsy, Herpes zoster, Diabetes mellitus Disposition Disposition: Acute Care Hospital [facility]
[2023-07-17 12:05] LABS: Absolute Lymphocyte Count 0.95 X10^3/uL (0.83-4.51); Absolute Neutrophil Count 10.1 X10^3/uL (2.0-7.7); Basophil# 0.03 X10^3/uL; Basophil% 0.3 % (0-1); Hematocrit 42.6 % (40-54); Lymphocyte # 0.95 X10^3/ul (0.83-4.51); Lymphocyte % 8.3 % (19-41); Mean Corp Hgb Conc 32.9 g/dL (32-36); Mean Corpuscular Hgb 30.2 pg (27.0-32.0); Mean Corpuscular Volume 91.8 fL (80-94); Mean Platelet Vol. 10.1 fl (6.2-12.0); Monocyte# 0.33 X10^3/uL; Monocyte% 2.9 % (0-10); NRBC Flagged by Analyzer 0 % (0-5); Neutrophil # 10.09 X10^3/uL (2.7-7.7); Neutrophil % 88.1 % (47-70); Platelet Count 262 K/mm3 (150-450); RBC Distribution Width CV 13.7 % (11.6-14.6); RBC Distribution Width SD 46.6 fl (35.1-43.9); Red Blood Count 4.64 M/mm3 (4.6-6.2); White Blood Count 11.5 K/mm3 (4.4-11.0)
[2023-07-17 12:21] LABS: AST(SGOT) 21 U/L (15-37); Alanine Aminotransfer ALT/SGPT 28 U/L (16-61); Albumin, Serum 3.7 g/dL (3.2-5.0); Alkaline Phosphatase 64 U/L (45-117); Anion Gap 10 (5-15); BUN 28 mg/dL (7-18); BUN/Creat Ratio 15.1 RATIO (10-20); Bilirubin, Direct 0.24 mg/dL (0.00-0.30); Calcium,Total 9.4 mg/dL (8.5-10.1); Chloride 101 mmol/L (98-107); Creatinine, Serum 1.85 mg/dL (0.70-1.30); EST Glomerular Filtration Rate 38 mL/min (>60); Est Glom Filt Rate - Afr Amer 46 mL/min (>60); Estimated Creatinine Clearance 29.09 ml/min; Glucose 229 mg/dL (74-106); Potassium 3.8 mmol/L (3.5-5.1); Protein, Total 7.7 g/dL (6.4-8.2); Sodium Level 137 mmol/L (136-145)
--- NOTE | 2023-07-17 12:32 | CT_ITS ---
STUDY: CT BRAIN WITHOUT CONTRAST REASON FOR EXAM: Male, 77 years old. Left facial shingles. RADIATION DOSAGE (If Supplied By Facility): CTDIvol = ( 44.99 ) mGy, DLP = ( 745.49 ) mGycm TECHNIQUE: Transaxial CT imaging of the brain was performed without administration of intravenous contrast material. Individualized dose optimization techniques were used for this CT. COMPARISON: No relevant priors. FINDINGS: Normal soft tissue structures. Normal calvarium. There is mild cerebral atrophy with widening of the extra-axial spaces and ventricular dilatation. There are areas of decreased attenuation within the white matter tracts of the supratentorial brain, consistent with microvascular disease changes. Old lacunar infarct in the left basal ganglion. Normal brainstem. Normal cerebellum. There is no intracranial hemorrhage. There are no findings of an acute ischemic infarction. Atherosclerotic calcific plaques of the vertebral arteries and cavernous portions of the internal carotid arteries bilaterally. Normal visualized paranasal sinuses. CT/Brain/Head without Contrast IMPRESSION: Chronic involutional changes of the brain. Electronically Signed: Favian Jaramillo MD at 13:24 EDT ,
[2023-07-17 13:21] VITALS: BP 143/74; PULSE 78; RESP 23; TEMP 36.6; O2SAT 97
[2023-07-17 14:11] VITALS: BP 143/74; PULSE 77; RESP 21; TEMP 36.6; O2SAT 97
[2023-07-17] MEDS: DEXTROSE 5% IV ×2 (14:21→21:50)
[2023-07-17] MEDS: ACYCLOVIR IV ×2 (14:21→21:50)
[2023-07-17] MEDS: WATER IV ×2 (14:21→21:50)
--- NOTE | 2023-07-17 14:45 | HP.PCM.HOS_ITS ---
HPI - General General Date of Admission: 07/17/23 Date of Service: 07/17/23 Chief Complaint: rash HPI Narrative SEDA ACUNA, is a 77 M who presents with rash or less on his face. Patient hit his head on his garage door 2 Mondays ago and saw his primary care doctor last Sunday and was diagnosed with shingles. Patient was started on valganciclovir as well as prednisone. Despite that it was getting worse. Patient was referred over to dermatology who subsequent referred him to ophthalmology. At the ophthalmology office, there is concerned about a left 6 cranial nerve palsy. Patient was sent to the emergency room. Patient received acyclovir after speaking with infectious disease. But given the severity of his zoster, hospital service was contacted for admission. Patient denies any history of shingles in the past. [facility] Medical History Abnormal result of cardiovascular function study Abnormal stress test Atherosclerotic heart disease of [place] coronary artery without angina pectoris Chest pain, precordial Diabetes mellitus type 2 with peripheral artery disease Dizziness Dyspnea, unspecified Edema Essential hypertension Family history of completed stroke Family history of ischemic heart disease and other diseases of the circulatory system Fatigue Fatigue Herpes zoster Hypertension Long-term use of high-risk medication Old myocardial infarction Pure hypercholesterolemia Home Medications nitroglycerin 0.4 mg sublingual tablet 0.4 mg sublingual Q5M PRN Chest Pain 05/12/14 [History Last Taken Unknown] tamsulosin 0.4 mg capsule 0.4 mg PO DAILY 05/12/14 [History Last Taken Unknown] sildenafil 100 mg tablet (Viagra) 100 mg PO DAILY PRN sexual activity 03/12/19 [History Last Taken Unknown] metformin 500 mg tablet 1,000 mg PO DAILY 05/24/20 [History Last Taken Unknown] acetaminophen 500 mg tablet (Tylenol Extra Strength) 500 mg PO Q6H PRN pain, fever 10/05/21 [History Last Taken Unknown] cetirizine 10 mg tablet 10 mg PO DAILY 10/05/21 [History Last Taken Unknown] amlodipine 10 mg tablet 10 mg PO QDAY #90 tabs 02/19/23 [Rx Last Taken Unknown] metoprolol tartrate 50 mg tablet 50 mg PO BID #180 tabs 02/19/23 [Rx Last Taken Unknown] atorvastatin 40 mg tablet 40 mg PO QHS #90 tabs 06/07/23 [Rx Last Taken Unknown] glipizide 2.5 mg tablet, extended release 24 hr 2.5 mg PO DAILY 06/07/23 [History Last Taken Unknown] bxdkwslj-tghtpmvqe-goxvdqol 3.5 mg/mL-10,000 unit/mL-0.1% eye drops 1 drp LEFT EYE 4X/DAY 07/17/23 [History Last Taken Unknown] prednisone 20 mg tablet 20 mg PO DAILY 07/17/23 [History Last Taken Unknown] valacyclovir 1 gram tablet 1,000 mg PO TID 07/17/23 [History Last Taken Unknown] Allergy/AdvReac Type Severity Reaction Status Date / Time Penicillins Allergy Unknown Verified 06/07/23 13:47 Family History Mother CVA (cerebral vascular accident) Brother CAD (coronary artery disease) Surgical History Aortocoronary bypass status (~06/30/08) History of carpal tunnel surgery Social History Smoking Status: Former smoker alcohol intake: never ROS ROS Narrative Patient states he has a history of left carpal tunnel syndrome. Recently has been experiencing left arm paresthesias and left leg paresthesias. 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 All review of systems were negative except as mentioned above in the history of present illness and the other review of systems. Vital Signs Vital Signs Vital Signs: 07/17/23 11:21 07/17/23 11:21 07/17/23 13:21 Temperature 35.5 C L 36.6 C Temperature Source Temporal Temporal Pulse Rate 80 79 78 Respiratory Rate 14 14 23 H Blood Pressure 147/82 H 147/82 H 143/74 H Blood Pressure Mean 103 103 97 Pulse Ox 98 100 97 Oxygen Delivery Method Room Air Room Air Room Air 07/17/23 14:11 Temperature 36.6 C Temperature Source Pulse Rate 77 Respiratory Rate 21 H Blood Pressure 143/74 H Blood Pressure Mean 97 Pulse Ox 97 Oxygen Delivery Method Weight Weight: 65.68 kg Body Mass Index (BMI) 24.0 Physical Exam Const alert and no apparent distress HEENT HEENT Narrative: Tympanic membrane within normal limits on the left and chronically ruptured on the right. No vesicular lesions noted within the ear canals. Mucous membranes are moist. Patient has some aphthous lesions on his hard palate. Eyes Eyes Narrative: Left pupil slightly larger than the right the patient may have been dilated at the ophthalmology office. Is reactive to light, however. Extraocular muscles are intact but patient has a impaired lateral saccade of the left with lateral gaze. Neck no lymphadenopathy Neck Narrative: No thyromegaly Resp normal respiratory effort, no retractions, no use of accessory muscles and clear to auscultation bilaterally Cardio regular rate, regular rhythm, S1 normal heart sound and S2 normal heart sound GI normal to inspection, nondistended, normoactive bowel sounds, soft to palpation, non-tender and non-distended Extremity normal to inspection, full ROM and no clubbing, cyanosis or edema Skin Skin Narrative: Scaling, scabbed over lesions over the left forehead and nose and face. Patient has also blackened area over his left nose. Neuro Sensorium / Orientation: awake and alert Speech: speech normal Motor Exam: strength 5/5 throughout Psych affect normal Results Lab / Micro Data 07/17/23 12:00 07/17/23 12:00 Labs: Laboratory Results - last 24 hr 07/17/23 12:00: WBC 11.5 H, RBC 4.64, Hgb 14.0, Hct 42.6, MCV 91.8, MCH 30.2, MCHC 32.9, RDW Std Deviation 46.6 H, RDW Coeff of Mary 13.7, Plt Count 262, MPV 10.1, Immature Gran % (Auto) 0.400, Neut % (Auto) 88.1 H, Lymph % (Auto) 8.3 L, [place] % (Auto) 2.9, Eos % (Auto) 0.0, Baso % (Auto) 0.3, Absolute Neuts (auto) 10.1 H, Absolute Lymphs (auto) 0.95, Nucleated RBC % 0, Sodium 137, Potassium 3.8, Chloride 101, Carbon Dioxide 26.0, Anion Gap 10, BUN 28 H, Creatinine 1.85 H, Estim Creat Clear Calc 29.09, Est GFR (MDRD) Af Amer 46 L, Est GFR (MDRD) Non-Af 38 L, BUN/Creatinine Ratio 15.1, Glucose 229 H, Calcium 9.4, Total Bilirubin 0.80, Direct Bilirubin 0.24, AST 21, ALT 28, Alkaline Phosphatase 64, Total Protein 7.7, Albumin 3.7, Globulin 4.0 Imaging Radiology Impression Brain CT 07/17/23 12:32 IMPRESSION: Chronic involutional changes of the brain. Electronically Signed: Favian Jaramillo MD at 13:24 EDT , Assessment & Plan Assessment/Plan (1) Herpes zoster: PLAN: Plan Herpes zoster * Involving the left forehead and face. Concern also involving the left 6 cranial nerve. Does not appear to be disseminated at this time. * Patient had been taking valganciclovir previous to this. Patient will be started on acyclovir 10 mg/kg every 8 hours. Will continue with the prednisone. * Supportive treatment with gabapentin, acetaminophen and oxycodone. * Patient complaining of left-sided paresthesias. Patient has known neuropathy for his lower extremities. I am not sure if patient is hyperaware at this time or if he does have new deficits. Will order an MRI to further evaluate that. * Infectious disease consultation. * Will consult wound care as patient does have significant lesions on his face trigger his nose. Chronic kidney disease stage IIIb * Creatinine slightly higher than baseline. Will hold metformin for now. Will give liter of IV fluids and monitor. * Close monitoring while patient is on acyclovir. DM2 * Hold metformin. Some scale insulin. Chronic condition * CAD: Stable * Hyperlipidemia: Continue statin * BPH: Continue tamsulosin VTE prophylaxis with enoxaparin CODE STATUS: Addressed with the patient. Patient was to be full code. Patient was very concerned about going home so he can take care of his . Patient's daughter was present at bedside and said that she will be able to help his , apparently has dementia. Patient and the rest of his family were comfortable with being brought in the hospital but when he said that he may be here 1 to 2 days, he was concerned that he may not be able to stay that long. Patient may require further reassurance and recommendations throughout his hospitalization. Charges/Coding Visit Charges Inpatient E&M: 16494 Init Hosp L3
--- NOTE | 2023-07-17 15:01 | MRI_ITS ---
STUDY: MRI BRAIN WITHOUT CONTRAST REASON FOR EXAM: Male, 77 years old. diplopia with zoster. TECHNIQUE: Standardized multiplanar fat and water weighted pulse sequences were obtained. COMPARISON: CT head July 17, 2023. FINDINGS: Mild motion on most sequences degrading the quality of the exam. Normal size of the ventricles and extra-axial spaces for the patient''s age. There is increased T2 and FLAIR periventricular white matter signal most commonly representing chronic small vessel ischemic changes. There is no evidence for recent intracranial ischemia or other cause of cytotoxic edema on diffusion weighted imaging (DWI). Normal T2* images of the brain without demonstrated susceptibility artifact. There is no demonstrated hemosiderin stain. There is slight disconjugate gaze with slight medial deviation left eye as could be seen with a left-sided abducens nerve palsy. No appreciable abnormal signal or mass lesion along the course of the abducens nerve. Soft tissues of the orbits are within normal limits of the exam. Ventricles no other CSF spaces are symmetric and within normal size limits for patient''s age. There is no intracranial mass. Is normal midline anatomy. There is a small right mastoid effusion. Left mastoid air cells are clear. Paranasal sinuses are clear. Moderate degenerative disc disease C3-4. MRI/Brain without Contrast IMPRESSION: 1. Slight disconjugate gaze with medial deviation left eye compared to the right as could be seen with a left abducens nerve palsy. No corollary abnormal signal along the course abducens nerve with normal appearance of the orbits. Note that this exam is of limited utility due to motion artifact. Additionally post contrast imaging would be needed to display abnormal nerve enhancement is present. Patient with need to be still during the exam. 2. Small right mastoid effusion. 3. Moderate increased T2 and FLAIR signal periventricular white matter suggesting chronic small vessel ischemic changes. Electronically Signed: Joe Del Valle DO at 20:58 EDT ,
[2023-07-17 15:24] VITALS: BP 139/69; PULSE 82; RESP 16; TEMP 37.1; O2SAT 99
[2023-07-17 15:45] VITALS: BMI 23.2
[2023-07-17 16:40] LABS: Bedside Glucose 232 mg/dL (74-106)
[2023-07-17] MEDS: Gabapentin 100 MG Capsule PO (17:38)
[2023-07-17] MEDS: 0.9% Normal Saline (1000mL) 1,000 ML 150 ML IV (17:38)
[2023-07-17] MEDS: Insulin Lispro 100 UNIT/ML INSULN.PEN SC (17:40)
[2023-07-17] MEDS: Glucerna Shake 120 ML LIQUID PO (17:44)
[2023-07-17] MEDS: Atorvastatin Calcium 40 MG Tablet PO (21:49)
[2023-07-17] MEDS: MELATONIN 3 MG TABLET 6 MG PO (21:49)
[2023-07-17 21:50] VITALS: PULSE 82
[2023-07-17] MEDS: Acetaminophen 500 MG Tablet 1000 MG PO (21:50)
[2023-07-17] MEDS: Metoprolol Tartrate 50 MG Tablet PO (21:50)
[2023-07-17] MEDS: Temazepam 15 MG Capsule PO (21:50)
[2023-07-17 22:00] VITALS: BP 140/68; PULSE 81; RESP 14; TEMP 36.5; O2SAT 98
[2023-07-17 22:18] LABS: Bedside Glucose 155 mg/dL (74-106)
[2023-07-18 03:31] VITALS: BP 131/60; PULSE 70; RESP 15; TEMP 36.3; O2SAT 98
[2023-07-18] MEDS: Insulin Lispro 100 UNIT/ML INSULN.PEN SC ×2 (06:15→12:00)
[2023-07-18] MEDS: Acetaminophen 500 MG Tablet 1000 MG PO ×2 (06:15→14:17)
[2023-07-18 06:34] LABS: Bedside Glucose 163 mg/dL (74-106)
[2023-07-18 07:25] LABS: Absolute Lymphocyte Count 2.64 X10^3/uL (0.83-4.51); Absolute Neutrophil Count 7.5 X10^3/uL (2.0-7.7); Basophil# 0.07 X10^3/uL; Basophil% 0.6 % (0-1); Eosinophil# 0.08 X10^3/uL; Eosinophils% 0.7 % (0-5); Hematocrit 42.5 % (40-54); Hemoglobin 14.1 g/dL (13.0-16.5); Lymphocyte # 2.64 X10^3/ul (0.83-4.51); Lymphocyte % 23.2 % (19-41); Mean Corp Hgb Conc 33.2 g/dL (32-36); Mean Corpuscular Hgb 30.6 pg (27.0-32.0); Mean Corpuscular Volume 92.2 fL (80-94); Mean Platelet Vol. 10.6 fl (6.2-12.0); Monocyte# 1.04 X10^3/uL; Monocyte% 9.1 % (0-10); NRBC Flagged by Analyzer 0 % (0-5); Neutrophil # 7.52 X10^3/uL (2.7-7.7); Platelet Count 286 K/mm3 (150-450); RBC Distribution Width CV 13.6 % (11.6-14.6); RBC Distribution Width SD 46.5 fl (35.1-43.9); Red Blood Count 4.61 M/mm3 (4.6-6.2); White Blood Count 11.4 K/mm3 (4.4-11.0)
[2023-07-18 07:46] LABS: Anion Gap 7 (5-15); BUN 23 mg/dL (7-18); BUN/Creat Ratio 15.9 RATIO (10-20); Calcium,Total 9.3 mg/dL (8.5-10.1); Chloride 103 mmol/L (98-107); Creatinine, Serum 1.45 mg/dL (0.70-1.30); EST Glomerular Filtration Rate 50 mL/min (>60); Est Glom Filt Rate - Afr Amer 61 mL/min (>60); Estimated Creatinine Clearance 37.11 ml/min; Glucose 151 mg/dL (74-106); Potassium 3.3 mmol/L (3.5-5.1); Sodium Level 138 mmol/L (136-145)
[2023-07-18 08:56] VITALS: BP 132/75; PULSE 82; RESP 16; TEMP 36.4; O2SAT 98
[2023-07-18] MEDS: ACYCLOVIR IV (08:57)
[2023-07-18] MEDS: Glucerna Shake 120 ML LIQUID PO ×2 (08:57→14:16)
[2023-07-18] MEDS: WATER IV (08:57)
[2023-07-18] MEDS: DEXTROSE 5% IV (08:57)
[2023-07-18 08:59] VITALS: BP 132/75; PULSE 82
[2023-07-18] MEDS: Enoxaparin 30 MG/0.3 ML Syringe SC (08:59)
[2023-07-18] MEDS: Loratadine 10 MG Tablet PO (08:59)
[2023-07-18] MEDS: Metoprolol Tartrate 50 MG Tablet PO (08:59)
[2023-07-18] MEDS: amLODIPine 10 MG Tablet PO (08:59)
[2023-07-18] MEDS: predniSONE 20 MG Tablet 40 MG PO (08:59)
[2023-07-18] MEDS: Gabapentin 100 MG Capsule PO ×2 (08:59→12:00)
[2023-07-18] MEDS: glipiZIDE 2.5 MG TAB.ER.24 PO (09:00)
[2023-07-18] MEDS: Tamsulosin HCl 0.4 MG Capsule PO (09:00)
--- NOTE | 2023-07-18 11:15 | PN.HOSP_ITS ---
Subjective Subjective Doing well, denies any pain. He does endorse some double vision at times Objective Data Objective Data Vital Signs: Vital Signs Temp Pulse Resp BP Pulse Ox O2 Del Method 97.6 F L 82 16 132/75 H 98 Room Air 07/18/23 08:56 07/18/23 08:59 07/18/23 08:56 07/18/23 08:59 07/18/23 08:56 07/18/23 09:00 Oxygen Delivery Method Room Air Weight: 139 lb 12.369 oz Body Mass Index (BMI) 23.2 Intake & Output: Intake and Output for Last 24 Hours 07/17/23 07/18/23 07/19/23 03:59 03:59 03:59 Intake Total 262.3 / 262.3 Balance 262.3 / 262.3 Lab / Micro Data 07/18/23 06:10 07/18/23 06:10 Labs: Laboratory Results - last 24 hr 07/17/23 12:00: WBC 11.5 H, RBC 4.64, Hgb 14.0, Hct 42.6, MCV 91.8, MCH 30.2, MCHC 32.9, RDW Std Deviation 46.6 H, RDW Coeff of Mary 13.7, Plt Count 262, MPV 10.1, Immature Gran % (Auto) 0.400, Neut % (Auto) 88.1 H, Lymph % (Auto) 8.3 L, [place] % (Auto) 2.9, Eos % (Auto) 0.0, Baso % (Auto) 0.3, Absolute Neuts (auto) 10.1 H, Absolute Lymphs (auto) 0.95, Nucleated RBC % 0, Sodium 137, Potassium 3.8, Chloride 101, Carbon Dioxide 26.0, Anion Gap 10, BUN 28 H, Creatinine 1.85 H, Estim Creat Clear Calc 29.09, Est GFR (MDRD) Af Amer 46 L, Est GFR (MDRD) Non-Af 38 L, BUN/Creatinine Ratio 15.1, Glucose 229 H, Calcium 9.4, Total Bilirubin 0.80, Direct Bilirubin 0.24, AST 21, ALT 28, Alkaline Phosphatase 64, Total Protein 7.7, Albumin 3.7, Globulin 4.0 07/17/23 16:04: POC Glucose 232 H 07/17/23 21:56: POC Glucose 155 H 07/18/23 06:10: WBC 11.4 H, RBC 4.61, Hgb 14.1, Hct 42.5, MCV 92.2, MCH 30.6, MCHC 33.2, RDW Std Deviation 46.5 H, RDW Coeff of Mary 13.6, Plt Count 286, MPV 10.6, Immature Gran % (Auto) 0.400, Neut % (Auto) 66.0, Lymph % (Auto) 23.2, [place] % (Auto) 9.1, Eos % (Auto) 0.7, Baso % (Auto) 0.6, Absolute Neuts (auto) 7.5, Absolute Lymphs (auto) 2.64, Nucleated RBC % 0, Sodium 138, Potassium 3.3 L , Chloride 103, Carbon Dioxide 28.0, Anion Gap 7, BUN 23 H, Creatinine 1.45 H, Estim Creat Clear Calc 37.11, Est GFR (MDRD) Af Amer 61, Est GFR (MDRD) Non-Af 50 L, BUN/Creatinine Ratio 15.9, Glucose 151 H, Calcium 9.3 07/18/23 06:14: POC Glucose 163 H Radiography Diagnostic Testing: Radiology Impression Brain CT 07/17/23 12:32 IMPRESSION: Chronic involutional changes of the brain. Electronically Signed: Favian Jaramillo MD at 13:24 EDT Reading Location ID and State: [facility] / [place] , Service support , Brain MRI 07/17/23 15:01 IMPRESSION: 1. Slight disconjugate gaze with medial deviation left eye compared to the right as could be seen with a left abducens nerve palsy. No corollary abnormal signal along the course abducens nerve with normal appearance of the orbits. Note that this exam is of limited utility due to motion artifact. Additionally post contrast imaging would be needed to display abnormal nerve enhancement is present. Patient with need to be still during the exam. 2. Small right mastoid effusion. 3. Moderate increased T2 and FLAIR signal periventricular white matter suggesting chronic small vessel ischemic changes. Electronically Signed: Joe Del Valle DO at 20:58 EDT , Physical Exam Narrative General: Alert, Oriented x3, Cooperative, No apparent distress HEENT: Atraumatic, PERRLA, EOMI, Normocephalic, shingle scar on the left face all lesions are crusted no signs of super bacterial infection. Left lateral gaze does initiate double vision Oral: Moist Mucosa Neck: Supple, No JVD Lungs: Clear to auscultation, Normal air movement, No rhonchi, No wheeze, No rales Cardiovascular: Regular rate, Regular Rhythm, Normal S1, Normal S2, No murmurs Abdomen: Soft, Non Tender, Non-Distended, No Hepato-splenomegaly Extremities: No edema, Capillary Refill Less than 3 Seconds Skin: No rashes, No breakdown Musculoskeletal: No Tenderness to Palpation of Joints or Extremities Neurological: No focal neurological deficits, Motor Exam 5/5 strength throughout, Sensory exam intact to light touch and pain Psych/Mental Status: Normal Affect, Appropriate Assessment & Plan Assessment/Plan (1) Herpes zoster: PLAN: Plan 1. Herpes zoster of the left face with possible left sixth cranial nerve involvement ? He has been on antiviral since last Sunday and the lesions are all crusted over with no signs of bacterial infection ? No signs of encephalitis or meningitis he is alert and oriented and of normal behavior ? Family endorses that his lesions look much better than they did even several days ago ? Denies any neurologic pain with the shingles ? He wants to go home today, he does understand the risks and benefits of discharge today he has agreed to await evaluation by infectious disease ? MRI demonstrated a slight disconjugate gaze with medial deviation of the left eye no corollary abnormal signal along the course of the abducens nerve with normal appearance of the orbits there was motion artifact. He did have moderate increased T2 and FLAIR signal in the periventricular white matter suggesting chronic small vessel ischemic changes 2. Essential HTN/HLD/CAD ? Continue with his home blood pressure medications ? We will monitor make adjustments as necessary ? Blood pressures are currently stable ? Continue with his cholesterol medication 3. DM2/CKD 3a ?Will hold metformin ? Continue with sliding scale insulin ? Accu-Cheks ACHS ? Monitor make adjustments as necessary ? Renal function does appear to be at baseline 4. BPH ? Stable ? Continue Flomax DVT: Lovenox Charges/Coding Visit Charges Inpatient E&M: 69118 Subs Hosp L2
[2023-07-18] MEDS: Potassium Chloride Oral Tablet 20 MEQ 40 MEQ PO (12:00)
[2023-07-18 12:14] LABS: Bedside Glucose 217 mg/dL (74-106)
--- NOTE | 2023-07-18 13:13 | WOUNDNOTE ---
wound photo: face
--- NOTE | 2023-07-18 15:32 | CASEMGMT ---
RN?CM?MECHANICAL SYSTEMS DESIGN ENGINEER?CM?to room to meet with patient for initial transition planning/care coordination?assessment.?RN?CM?introduced self and role at [facility].? Pt voices understanding and consents to?assessment?at this time.? Pt resting in bed in no distress at this time.? and daughter @ bedside. Pt is A/O at this time and answers all questions appropriately.?? Care providers, pharmacy, and demographics verified/updated at this time. PCP: Dr Celeste Specialists: SHERICE/Cardiology, Dr Diamond-nephrology, Dr Maloney-dermatology Preferred [facility]acy: [facility]. Insurance: [facility] [facility] Prescription Benefit:?yes Living Will/HPOA:?Pt thinks he may have completed this @ [facility] in the past. No records of this on-file in [email or web address]. Pt and family aware. Pt made aware he can complete this w/SW either as an IN-patient or OP, if he would like. He voices understanding. LNOK: , Rimma. Daughter, Lili. Living Arrangements: Lives w/ in one-story home w/basement and 3 steps to enter w/railing on both sides. Pt states does okay w/the stairs. Independent w/ADL's and IADL's and manages his own medications. He helps to care for his , who has dementia. f Transportation:?Pt states drives self and states no transportation concerns at this time.? DME: States has the following DME:?functioning glucometer w/supplies, BP machine, pulse ox. ?Pt states no need for further DME at this time.? HHC/SNF: No hx of SNF. Had HHC in the past after an [place]. No needs identified. Pt wishes to return home and states has no concerns with going home at time of discharge.??CM?to follow for any further discharge planning/needs.? Pt voices no further concerns/needs at this time.? Advised pt to ask for?CM?if any further questions/concerns/needs arise.? Voices understanding. PLAN:??Home REGiaeunice BSN?RN?CM
--- NOTE | 2023-07-18 15:36 | PCM.DC ---
Discharge Instructions Diet Discharge Diet: Low fat / Low cholesterol and Carb Control Diet Activity Discharge Activity: Return to Normal Activity Dressing / Incision Call your doctor if you observe: Fever of 101 or Higher, Shortness of breath, Dizziness, Fainting spells, Swelling in the ankles, Chest pain and Increased palpitations (irregular heartbeat) Follow Up Care Test Results: Test results from this visit will be discussed in further detail at your follow-up appointment, if applicable. Discharge Plan Admission Admit Date/Time: 07/17/23 14:36 Attending Provider: Srikanth Edwards Primary Care Provider: Prince Celeste Consulting Providers: Elliot Joyce; Reynaldo iYn Instructions Patient Instructions: Shingles (Herpes Zoster), ED Shingles (Herpes Zoster) Discharge Orders/Prescriptions Prescriptions: New valacyclovir [Valtrex] 1 gram tablet 1,000 mg PO TID 4 Days Qty: 12 0RF Rx Instructions: Start when your first prescription is completed to complete 14 days of treatment total. Continued sildenafil [Viagra] 100 mg tablet 100 mg PO DAILY PRN (Reason: sexual activity) cetirizine 10 mg tablet 10 mg PO DAILY acetaminophen [Tylenol Extra Strength] 500 mg tablet 500 mg PO Q6H PRN (Reason: pain, fever) glipizide 2.5 mg tablet extended release 24hr 2.5 mg PO DAILY tamsulosin 0.4 MG capsule 0.4 mg PO DAILY nitroglycerin 0.4 MG tablet 0.4 mg SUBLINGUAL Q5M PRN (Reason: Chest Pain) metformin 500 mg tablet 1,000 mg PO DAILY valacyclovir 1 gram tablet 1,000 mg PO TID prednisone 20 mg tablet 20 mg PO DAILY neomycin-polymyxin B-dexameth 3.5mg/mL-10,000 unit/mL-0.1 % drops,suspension 1 drp LEFT EYE 4X/DAY gabapentin 100 mg capsule 200 mg PO QHS Centrum Adult 50 Plus 80 mcg tablet,chewable 1 tab PO DAILY amlodipine 10 mg tablet 10 mg PO QDAY Qty: 90 3RF metoprolol tartrate 50 mg tablet 50 mg PO BID Qty: 180 3RF atorvastatin 40 mg tablet 40 mg PO QHS Qty: 90 3RF Referrals / Follow Up: Prince Celeste MD [Primary Care Provider] - Within 1 Week Disposition Disposition (needs filled in before D/C Order can be placed): Home, Self Care
--- NOTE | 2023-07-18 15:47 | DS.PCM_ITS ---
Providers Date of Admission: 07/17/23 Primary Care Physician: Dr. 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 Routine Comment: Reason For Visit: HERPES ZOSTER, 6TH NEWVE PALSY Diagnosis Discharge Diagnosis (1) Herpes zoster: Status: Acute Code(s): B02.9 - Zoster without complications Medications at Discharge Home Medications nitroglycerin 0.4 mg sublingual tablet 0.4 mg sublingual Q5M PRN Chest Pain 05/12/14 tamsulosin 0.4 mg capsule 0.4 mg PO DAILY urine flow 05/12/14 sildenafil 100 mg tablet (Viagra) 100 mg PO DAILY PRN sexual activity 03/12/19 metformin 500 mg tablet 1,000 mg PO DAILY diabetes 05/24/20 acetaminophen 500 mg tablet (Tylenol Extra Strength) 500 mg PO Q6H PRN pain, fever 10/05/21 cetirizine 10 mg tablet 10 mg PO DAILY sinus 10/05/21 amlodipine 10 mg tablet 10 mg PO QDAY blood prerssure #90 tabs 02/19/23 metoprolol tartrate 50 mg tablet 50 mg PO BID heart #180 tabs 02/19/23 atorvastatin 40 mg tablet 40 mg PO QHS cholesterol #90 tabs 06/07/23 glipizide 2.5 mg tablet, extended release 24 hr 2.5 mg PO DAILY diabetes 06/07/23 gabapentin 100 mg capsule 200 mg PO QHS shingle pain at night time 07/17/23 multivitamin with minerals-folic acid 80 mcg chewable tablet (Centrum Adult 50 Plus) 1 tab PO DAILY suppliment 07/17/23 ghcfwnlx-dnvpxmqjv-pswzjmzq 3.5 mg/mL-10,000 unit/mL-0.1% eye drops 1 drp LEFT EYE 4X/DAY shingles 07/17/23 prednisone 20 mg tablet 20 mg PO DAILY steroid 07/17/23 valacyclovir 1 gram tablet 1,000 mg PO TID shingles 07/17/23 valacyclovir 1 gram tablet (Valtrex) 1,000 mg PO TID 4 days #12 tabs 07/18/23 Hospital Course Operations None Procedures None Summary of Care Provided Minutes Spent on Discharge: 37 Hospital Course: Per HPI: SEDA ACUNA, is a 77 M who presents with rash or less on his face. Patient hit his head on his garage door 2 Mondays ago and saw his primary care doctor last Sunday and was diagnosed with shingles. Patient was started on valganciclovir as well as prednisone. Despite that it was getting worse. Patient was referred over to dermatology who subsequent referred him to ophthalmology. At the ophthalmology office, there is concerned about a left 6 cranial nerve palsy. Patient was sent to the emergency room. Patient received acyclovir after speaking with infectious disease. But given the severity of his zoster, hospital service was contacted for admission. Patient denies any history of shingles in the past. Hospital Course: 1. Herpes zoster of the left face with possible left 6th cranial nerve involvement?77-year-old male was diagnosed with shingles on his left face about a week ago and was started on Valtrex 1 g p.o. 3 times daily and has been taking that for 7 days. The entirety of the rash is crusted over with no signs of cellulitis and both patient and family states he looks much better than he did in 3 to 4 days ago. He went to see an event organizer who thought that his left 6th cranial nerve was possibly involved, MRI was obtained which demonstrated a slight disconjugate gaze with medial deviation of the left eye, there is also a T2 and FLAIR signal that demonstrated possible chronic small vessel ischemic changes. No signs on evaluation for encephalitis. I discussed the case with infectious disease who felt that he was stable enough to go home and that he would need to complete 14 days total of treatment so a prescription was sent into his pharmacy for 4 more days of Valtrex 1 g p.o. 3 times daily. I discussed with the patient and the family that the plan for discharge today expressed understanding of the risk benefits of going home and he would really like to go home today. He denies any significant pain over the shingles rash states that in the beginning he has significant neuropathic pain but that has essentially resolved. 2. Essential hypertension, hyperlipidemia, coronary artery disease, type 2 diabetes, CKD 3a, BPH are all chronic medical conditions which complicate his care. His home medications were continued where appropriate Physical Exam Narrative General: Alert, Oriented x3, Cooperative, No apparent distress HEENT: Atraumatic, PERRLA, EOMI, Normocephalic, shingle scar on the left face all lesions are crusted no signs of super bacterial infection. Left lateral gaze does initiate double vision Oral: Moist Mucosa Neck: Supple, No JVD Lungs: Clear to auscultation, Normal air movement, No rhonchi, No wheeze, No rales Cardiovascular: Regular rate, Regular Rhythm, Normal S1, Normal S2, No murmurs Abdomen: Soft, Non Tender, Non-Distended, No Hepato-splenomegaly Extremities: No edema, Capillary Refill Less than 3 Seconds Skin: No rashes, No breakdown Musculoskeletal: No Tenderness to Palpation of Joints or Extremities Neurological: No focal neurological deficits, Motor Exam 5/5 strength throughout, Sensory exam intact to light touch and pain Psych/Mental Status: Normal Affect, Appropriate Weight / BMI Weight Weight: 139 lb 12.369 oz Body Mass Index (BMI) 23.2 ABG / Lab / Microbiology Data 07/18/23 06:10 07/18/23 06:10 Laboratory: Laboratory Results - last 24 hr 07/17/23 16:04: POC Glucose 232 H 07/17/23 21:56: POC Glucose 155 H 07/18/23 06:10: WBC 11.4 H, RBC 4.61, Hgb 14.1, Hct 42.5, MCV 92.2, MCH 30.6, MCHC 33.2, RDW Std Deviation 46.5 H, RDW Coeff of Mary 13.6, Plt Count 286, MPV 10.6, Immature Gran % (Auto) 0.400, Neut % (Auto) 66.0, Lymph % (Auto) 23.2, [place] % (Auto) 9.1, Eos % (Auto) 0.7, Baso % (Auto) 0.6, Absolute Neuts (auto) 7.5, Absolute Lymphs (auto) 2.64, Nucleated RBC % 0, Sodium 138, Potassium 3.3 L , Chloride 103, Carbon Dioxide 28.0, Anion Gap 7, BUN 23 H, Creatinine 1.45 H, Estim Creat Clear Calc 37.11, Est GFR (MDRD) Af Amer 61, Est GFR (MDRD) Non-Af 50 L, BUN/Creatinine Ratio 15.9, Glucose 151 H, Calcium 9.3 07/18/23 06:14: POC Glucose 163 H 07/18/23 11:55: POC Glucose 217 H Radiography Diagnostic Testing: Radiology Impression Brain MRI 07/17/23 15:01 IMPRESSION: 1. Slight disconjugate gaze with medial deviation left eye compared to the right as could be seen with a left abducens nerve palsy. No corollary abnormal signal along the course abducens nerve with normal appearance of the orbits. Note that this exam is of limited utility due to motion artifact. Additionally post contrast imaging would be needed to display abnormal nerve enhancement is present. Patient with need to be still during the exam. 2. Small right mastoid effusion. 3. Moderate increased T2 and FLAIR signal periventricular white matter suggesting chronic small vessel ischemic changes. Electronically Signed: Joe Del Valle DO at 20:58 EDT , D/C Instructions Discharge Diet: Low fat / Low cholesterol and Carb Control Diet Call your doctor if you observe: Fever of 101 or Higher, Shortness of breath, Dizziness, Fainting spells, Swelling in the ankles, Chest pain and Increased palpitations (irregular heartbeat) Meaningful Use Info Meaningful Use Diagnoses (Choose all that apply): None applicable Discharge Plan Admission Admit Date/Time: 07/17/23 14:36 Attending Provider: Srikanth Edwards Primary Care Provider: Prince Celeste Consulting Providers: Elliot Joyce; Reynaldo Yin Instructions Patient Instructions: Shingles (Herpes Zoster), ED Shingles (Herpes Zoster) Discharge Orders/Prescriptions Prescriptions: New valacyclovir [Valtrex] 1 gram tablet 1,000 mg PO TID 4 Days Qty: 12 0RF Rx Instructions: Start when your first prescription is completed to complete 14 days of treatment total. Continued sildenafil [Viagra] 100 mg tablet 100 mg PO DAILY PRN (Reason: sexual activity) cetirizine 10 mg tablet 10 mg PO DAILY acetaminophen [Tylenol Extra Strength] 500 mg tablet 500 mg PO Q6H PRN (Reason: pain, fever) glipizide 2.5 mg tablet extended release 24hr 2.5 mg PO DAILY tamsulosin 0.4 MG capsule 0.4 mg PO DAILY nitroglycerin 0.4 MG tablet 0.4 mg SUBLINGUAL Q5M PRN (Reason: Chest Pain) metformin 500 mg tablet 1,000 mg PO DAILY valacyclovir 1 gram tablet 1,000 mg PO TID prednisone 20 mg tablet 20 mg PO DAILY neomycin-polymyxin B-dexameth 3.5mg/mL-10,000 unit/mL-0.1 % drops,suspension 1 drp LEFT EYE 4X/DAY gabapentin 100 mg capsule 200 mg PO QHS Centrum Adult 50 Plus 80 mcg tablet,chewable 1 tab PO DAILY amlodipine 10 mg tablet 10 mg PO QDAY Qty: 90 3RF metoprolol tartrate 50 mg tablet 50 mg PO BID Qty: 180 3RF atorvastatin 40 mg tablet 40 mg PO QHS Qty: 90 3RF Referrals / Follow Up: Prince Celeste MD [Primary Care Provider] - Within 1 Week Disposition Disposition (needs filled in before D/C Order can be placed): Home, Self Care Charges/Coding Visit Charges Inpatient E&M: 22799 Disch Hosp >30min
[2023-07-18 16:00] VITALS: BP 121/69; PULSE 80; RESP 16; TEMP 36.4; O2SAT 99
--- NOTE | 2023-07-18 16:08 | PCM.CONS.GEN ---
Assessment & Plan Assessment/Plan (1) Herpes zoster: PLAN: Feeling better, lesions scabbed, MRI reviewed. Ok for d/c home with one more week po valtrex 1gm tid with ophtho followup. D/w primary team, thank you (2) 6th nerve palsy: HPI Consult Data Date of Consult: 07/18/23 HPI Narrative Reason for Consultation: shingles HPI Narrative: SEDA ACUNA, is a 77 M with h/o DM, hit his head on garage door about 10 days ago, developed painful lesions on L upper face, saw PCP, dx with shingles. Started on valtrex, lesions crusted. Saw ophtho and concern for new double vision. Sent to ED, admitted on iv acyclovir. Feeling better, no other lesions on his body. No prior shingles vaccine. Double vision is better. Full ROS performed and neg except as noted above. REPLACED BY [facility] Medical History Abnormal result of cardiovascular function study Abnormal stress test Atherosclerotic heart disease of [place] coronary artery without angina pectoris Chest pain, precordial Diabetes mellitus type 2 with peripheral artery disease Dizziness Dyspnea, unspecified Edema Essential hypertension Family history of completed stroke Family history of ischemic heart disease and other diseases of the circulatory system Fatigue Fatigue Herpes zoster Hypertension Long-term use of high-risk medication Old myocardial infarction Pure hypercholesterolemia Home Medications nitroglycerin 0.4 mg sublingual tablet 0.4 mg sublingual Q5M PRN Chest Pain 05/12/14 [History Last Taken Unknown] tamsulosin 0.4 mg capsule 0.4 mg PO DAILY urine flow 05/12/14 [History Last Taken 07/16/23] sildenafil 100 mg tablet (Viagra) 100 mg PO DAILY PRN sexual activity 03/12/19 [History Last Taken Unknown] metformin 500 mg tablet 1,000 mg PO DAILY diabetes 05/24/20 [History Last Taken 07/17/23] acetaminophen 500 mg tablet (Tylenol Extra Strength) 500 mg PO Q6H PRN pain, fever 10/05/21 [History Last Taken Unknown] cetirizine 10 mg tablet 10 mg PO DAILY sinus 10/05/21 [History Last Taken 07/17/23] amlodipine 10 mg tablet 10 mg PO QDAY blood prerssure #90 tabs 10/30/23 [Rx Last Taken 07/17/23] metoprolol tartrate 50 mg tablet 50 mg PO BID heart #180 tabs 02/19/23 [Rx Last Taken 07/17/23 08:52] atorvastatin 40 mg tablet 40 mg PO QHS cholesterol #90 tabs 06/07/23 [Rx Last Taken 07/16/23] glipizide 2.5 mg tablet, extended release 24 hr 2.5 mg PO DAILY diabetes 06/07/23 [History Last Taken 07/17/23] gabapentin 100 mg capsule 200 mg PO QHS shingle pain at night time 07/17/23 [History Last Taken 07/16/23] multivitamin with minerals-folic acid 80 mcg chewable tablet (Centrum Adult 50 Plus) 1 tab PO DAILY suppliment 07/17/23 [History Last Taken 07/17/23] uaqmuunu-hepjchauh-oegpjsbi 3.5 mg/mL-10,000 unit/mL-0.1% eye drops 1 drp LEFT EYE 4X/DAY shingles 07/17/23 [History Last Taken 07/17/23] valacyclovir 1 gram tablet 1,000 mg PO TID shingles 07/17/23 [History Last Taken 07/17/23] valacyclovir 1 gram tablet (Valtrex) 1,000 mg PO TID 4 days #12 tabs 07/18/23 [Rx Last Taken Unknown] Allergy/AdvReac Type Severity Reaction Status Date / Time Penicillins Allergy Unknown Verified 06/07/23 13:47 Family History Mother CVA (cerebral vascular accident) Brother CAD (coronary artery disease) Surgical History Aortocoronary bypass status (~06/30/08) History of carpal tunnel surgery Social History (Updated 07/17/23 @ 15:39 by Kiara Gloria) Smoking Status: Former smoker alcohol intake: never Physical Exam Const alert, oriented x3 and no apparent distress General Appearance: cooperative HEENT HEENT Narrative: Scabbed lesions on L upper face including nose Eyes PERRL Eyes Narrative: some diplopia and clonus Neck supple and nodes Resp normal air movement and clear to auscultation bilaterally Cardio regular rate and regular rhythm GI soft to palpation, non-tender and non-distended Extremity General Extremity: Negative for edema Skin Skin Narrative: no other rash Neuro Neuro Narrative: as above Lab / Micro Data Attestation: I reviewed the patient's lab results. 07/18/23 06:10 07/18/23 06:10 Labs: Laboratory Results - last 24 hr 07/17/23 16:04: POC Glucose 232 H 07/17/23 21:56: POC Glucose 155 H 07/18/23 06:10: WBC 11.4 H, RBC 4.61, Hgb 14.1, Hct 42.5, MCV 92.2, MCH 30.6, MCHC 33.2, RDW Std Deviation 46.5 H, RDW Coeff of Mary 13.6, Plt Count 286, MPV 10.6, Immature Gran % (Auto) 0.400, Neut % (Auto) 66.0, Lymph % (Auto) 23.2, [place] % (Auto) 9.1, Eos % (Auto) 0.7, Baso % (Auto) 0.6, Absolute Neuts (auto) 7.5, Absolute Lymphs (auto) 2.64, Nucleated RBC % 0, Sodium 138, Potassium 3.3 L, Chloride 103, Carbon Dioxide 28.0, Anion Gap 7, BUN 23 H, Creatinine 1.45 H, Estim Creat Clear Calc 37.11, Est GFR (MDRD) Af Amer 61, Est GFR (MDRD) Non-Af 50 L, BUN/Creatinine Ratio 15.9, Glucose 151 H, Calcium 9.3 07/18/23 06:14: POC Glucose 163 H 07/18/23 11:55: POC Glucose 217 H Imaging Radiology Impression Brain MRI 07/17/23 15:01 IMPRESSION: 1. Slight disconjugate gaze with medial deviation left eye compared to the right as could be seen with a left abducens nerve palsy. No corollary abnormal signal along the course abducens nerve with normal appearance of the orbits. Note that this exam is of limited utility due to motion artifact. Additionally post contrast imaging would be needed to display abnormal nerve enhancement is present. Patient with need to be still during the exam. 2. Small right mastoid effusion. 3. Moderate increased T2 and FLAIR signal periventricular white matter suggesting chronic small vessel ischemic changes. Electronically Signed: Joe Del Valle DO at 20:58 EDT ,
--- NOTE | 2023-07-18 16:14 | PHA.DC.MR.R ---
Pharmacy [facility] Med Reconciliation Pharmacy Service has performed discharge medication reconciliation for this patient. Rx sent for 4 more days of valtrex, not a new medication, did not financial counselor. The patient's discharge medication list was reviewed for discrepancies and discrepancies were resolved. Medications at Discharge Home Medications nitroglycerin 0.4 mg sublingual tablet 0.4 mg sublingual Q5M PRN Chest Pain 05/12/14 tamsulosin 0.4 mg capsule 0.4 mg PO DAILY urine flow 05/12/14 sildenafil 100 mg tablet (Viagra) 100 mg PO DAILY PRN sexual activity 03/12/19 metformin 500 mg tablet 1,000 mg PO DAILY diabetes 05/24/20 acetaminophen 500 mg tablet (Tylenol Extra Strength) 500 mg PO Q6H PRN pain, fever 10/05/21 cetirizine 10 mg tablet 10 mg PO DAILY sinus 10/05/21 amlodipine 10 mg tablet 10 mg PO QDAY blood prerssure #90 tabs 02/19/23 metoprolol tartrate 50 mg tablet 50 mg PO BID heart #180 tabs 02/19/23 atorvastatin 40 mg tablet 40 mg PO QHS cholesterol #90 tabs 06/07/23 glipizide 2.5 mg tablet, extended release 24 hr 2.5 mg PO DAILY diabetes 06/07/23 gabapentin 100 mg capsule 200 mg PO QHS shingle pain at night time 07/17/23 multivitamin with minerals-folic acid 80 mcg chewable tablet (Centrum Adult 50 Plus) 1 tab PO DAILY suppliment 07/17/23 pvxlfslj-bmumvfikw-xcucpdnr 3.5 mg/mL-10,000 unit/mL-0.1% eye drops 1 drp LEFT EYE 4X/DAY shingles 07/17/23 valacyclovir 1 gram tablet 1,000 mg PO TID shingles 07/17/23 valacyclovir 1 gram tablet (Valtrex) 1,000 mg PO TID 4 days #12 tabs 07/18/23
== END 2023-07-18 16:50 | disposition home or self-care (01) | DRG 74 ==
LOC: ED 13:56 → PCU 14:32
PROVIDERS: Emergency Provider Emergency Medicine; PCP Internal Medicine; Visit Provider Family Medicine
DX: B02.29 Other postherpetic nervous system involvement (principal); F03.90 Unspecified dementia, unspecified severity, without behavioral disturbance, psychotic disturbance, mood disturbance, and anxiety; E11.22 Type 2 diabetes mellitus with diabetic chronic kidney disease; E11.40 Type 2 diabetes mellitus with diabetic neuropathy, unspecified; E11.51 Type 2 diabetes mellitus with diabetic peripheral angiopathy without gangrene; N18.31 Chronic kidney disease, stage 3a; H49.20 Sixth [abducent] nerve palsy, unspecified eye; I12.9 Hypertensive chronic kidney disease with stage 1 through stage 4 chronic kidney disease, or unspecified chronic kidney disease; E78.00 Pure hypercholesterolemia, unspecified; H53.2 Diplopia; I25.10 Atherosclerotic heart disease of native coronary artery without angina pectoris; I25.2 Old myocardial infarction; Z87.891 Personal history of nicotine dependence; Z79.84 Long term (current) use of oral hypoglycemic drugs; N40.0 Benign prostatic hyperplasia without lower urinary tract symptoms; Z79.899 Other long term (current) drug therapy
CPT/HCPCS: 36415; 70450; 70551; 80048; 80076; 82962; 85025; 96361; 96365; 96366; 96372; 97802; 99221; 99285; A4216; G0378

== ENCOUNTER 2023-08-13 13:11 | Outpatient (CLI) | payer MEDICARE, SELFPAY ==
[2023-08-13 14:11] LABS: AST(SGOT) 21 U/L (15-37); Alanine Aminotransfer ALT/SGPT 28 U/L (16-61); Albumin, Serum 3.6 g/dL (3.2-5.0); Alkaline Phosphatase 52 U/L (45-117); Bilirubin, Direct 0.11 mg/dL (0.00-0.30); Cholesterol 114 mg/dL (200); Globulin 3.5 g/dL (2.2-4.2); High Density Lipoprotein 36 mg/dL; Protein, Total 7.1 g/dL (6.4-8.2); Triglycerides 143 mg/dL; Very Low Density Lipoprotein 29 mg/dL (5-40)
[2023-08-14 08:00] LABS: Anion Gap 5 (5-15); BUN 25 mg/dL (7-18); Chloride 102 mmol/L (98-107); Creatinine, Serum 1.78 mg/dL (0.70-1.30); EST Glomerular Filtration Rate 40 mL/min (>60); Est Glom Filt Rate - Afr Amer 48 mL/min (>60); Glucose 141 mg/dL (74-106); Phosphorus 3.1 mg/dL (2.5-4.9); Potassium 4.3 mmol/L (3.5-5.1); Sodium Level 137 mmol/L (136-145)
== END 2023-08-13 23:59 | disposition home or self-care (01) ==
PROVIDERS: Nurse Practitioner Family; PCP Internal Medicine; Referring Provider Internal Medicine Nephrology; Visit Provider Internal Medicine Nephrology
DX: E11.22 Type 2 diabetes mellitus with diabetic chronic kidney disease (principal); N18.32 Chronic kidney disease, stage 3b; E78.00 Pure hypercholesterolemia, unspecified
CPT/HCPCS: 36415; 80048; 80061; 80076; 84100

== ENCOUNTER 2023-09-02 11:50 | Emergency (ER) | payer MEDICARE, SELFPAY ==
[2023-09-02 11:52] VITALS: BP 129/71; PULSE 66; RESP 18; TEMP 36.4; O2SAT 96; BMI 24.2
--- NOTE | 2023-09-02 13:44 | EX.ED.GENINJ ---
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 Dizziness Dyspnea, unspecified Edema Essential hypertension Family history of completed stroke Family history of ischemic heart disease and other diseases of the circulatory system Fatigue Fatigue Herpes zoster Hypertension Long-term use of high-risk medication Old myocardial infarction Pure hypercholesterolemia Home Medications nitroglycerin 0.4 mg sublingual tablet 0.4 mg sublingual Q5M PRN Chest Pain 05/12/14 [History Last Taken Unknown] tamsulosin 0.4 mg capsule 0.4 mg PO DAILY urine flow 05/12/14 [History Last Taken 07/16/23] sildenafil 100 mg tablet (Viagra) 100 mg PO DAILY PRN sexual activity 03/12/19 [History Last Taken Unknown] metformin 500 mg tablet 1,000 mg PO DAILY diabetes 05/24/20 [History Last Taken 07/17/23] acetaminophen 500 mg tablet (Tylenol Extra Strength) 500 mg PO Q6H PRN pain, fever 10/05/21 [History Last Taken Unknown] cetirizine 10 mg tablet 10 mg PO DAILY sinus 10/05/21 [History Last Taken 07/17/23] amlodipine 10 mg tablet 10 mg PO QDAY blood prerssure #90 tabs 02/19/23 [Rx Last Taken 07/17/23] metoprolol tartrate 50 mg tablet 50 mg PO BID heart #180 tabs 02/19/23 [Rx Last Taken 07/17/23 08:52] atorvastatin 40 mg tablet 40 mg PO QHS cholesterol #90 tabs 06/07/23 [Rx Last Taken 07/16/23] glipizide 2.5 mg tablet, extended release 24 hr 2.5 mg PO DAILY diabetes 06/07/23 [History Last Taken 07/17/23] gabapentin 100 mg capsule 200 mg PO QHS shingle pain at night time 07/17/23 [History Last Taken 07/16/23] multivitamin with minerals-folic acid 80 mcg chewable tablet (Centrum Adult 50 Plus) 1 tab PO DAILY suppliment 07/17/23 [History Last Taken 07/17/23] rhixiact-wyxgfmuos-bilkmrrv 3.5 mg/mL-10,000 unit/mL-0.1% eye drops 1 drp LEFT EYE 4X/DAY shingles 07/17/23 [History Last Taken 07/17/23] valacyclovir 1 gram tablet 1,000 mg PO TID shingles 07/17/23 [History Last Taken 07/17/23] valacyclovir 1 gram tablet (Valtrex) 1,000 mg PO TID 4 days #12 tabs 07/18/23 [Rx Last Taken Unknown] Allergy/AdvReac Type Severity Reaction Status Date / Time Penicillins Allergy Unknown Verified 09/02/23 11:51 Family History Mother CVA (cerebral vascular accident) Brother CAD (coronary artery disease) Surgical History Aortocoronary bypass status (~06/30/08) History of carpal tunnel surgery Social History (Updated 07/17/23 @ 15:39 by Kiara Gloria) Smoking Status: Former smoker alcohol intake: never EXAM Physical Exam Const Vital Signs: 09/02/23 11:52 09/02/23 14:24 09/02/23 15:21 Temperature 97.6 F L 97.5 F L Temperature Source Temporal Pulse Rate 66 85 Respiratory Rate 18 18 Respiratory Effort Normal Respiratory Pattern Normal Blood Pressure 129/71 H 125/70 H Blood Pressure Mean 90 88 Pulse Ox 96 97 Oxygen Delivery Method Room Air [facility] MDM MDM Narrative Medical decision making narrative: HISTORY OF PRESENT ILLNESS: 77-year-old male presents with neck pain. Notes no trauma. Denies focal upper extremity numbness or tingling. Denies fever. Notes right-sided neck pain is worse when he moves his head left or right. No chest pain noted. No shortness of breath. REVIEW OF SYSTEMS: Pertinent positives: Neck pain Pertinent negatives: Numbness, tingling PHYSICAL EXAM: Nursing triage notes reviewed, Vital signs reviewed Constitutional: please see mdm HENT: MMM Eyes: Pupils equal round and reactive to light, Extraocular muscles intact Neck: No stridor, no JVD, full neck ROM, TTP over right paraspinal musculature, no bruits Lungs: Clear to auscultation, No wheezing or rales. No increased work of breathing, no conversational dyspnea, no accessory muscle use, no nasal flaring. No respiratory distress noted Heart: Regular rate and rhythm, No murmurs, No rubs and No gallops, 2+ distal pulses (radial, femoral, posterior tibial) in all extremities Abdomen: Soft, there is no tenderness, rigidity, rebound or guarding, no obvious peritoneal signs, no palpable pulsatile abdominal masses, no auscultated abdominal bruit : No CVAT Extremities: No edema Neuro: Intact 5/5 strength with ok sign (median), intact finger abduction (ulnar) intact wrist extension (radial n). Intact sensation in the radial, ulnar, and median nerve distributions. Skin: No rash or lesions noted MEDICAL DECISION MAKING: Chief Complaint: Neck pain External records reviewed: [Imaging reviewed: Recent [facility] imaging of the neck Factors affecting care: n carotid artery disease, hyperlipidemia, hypertension, history of CABG Social determinants of health: none History obtained from others: Patient's family Consults: none MDM Narrative: Patient was hemodynamically stable, afebrile and nontoxic-appearing. Exam with musculoskeletal TTP and decreased range of motion with turning his head to the left. Clinically most consistent with musculoskeletal etiology I considered the following differential diagnosis: Cervical spine fracture, dislocation, herniated disc, musculoskeletal neck pain ALL IMAGES (IF OBTAINED) HAVE BEEN PERSONALLY REVIEWED AND INTERPRETED BY MYSELF. CT of the neck shows no evidence of obvious bony injury. Patient was treated with oral and IM medicines for anti-inflammatory effect. He will be discharged with instructions take lidocaine patches, Tylenol, ibuprofen and to follow-up with his primary care physician for further evaluation. There is no indication for emergent MRI at this time as patient has no focal neurologic deficits and is a low red flag score for space-occupying lesion of the spine. The patient and/or family, caregivers express understanding. The patient and/or family, caregivers agrees with the plan. Shared decision making: I will have a discussion with the patient and or visitors regarding risk/benefits of further testing or admission. They will be made aware of of the risk/benefits inherent in this decision they will be given the opportunity to voice understanding. Total critical care time today provided was at least 0 minutes. This excludes separately billable procedures. Critical care time (if documented) is secondary to the patient having high probability of clinically significant/life threatening deterioration in the patient's condition which required my urgent intervention. Impression: 1. Neck pain 2. Cervical muscle strain Dispo: Discharge home This note was generated with [employer] dictation software. It may contain incorrect words, spelling, and punctuation that were not noted in review of the chart prior to signing. Radiography Diagnostic Testing: Clinical Impression(s) from Imaging Studies Soft Tissue Neck CT 09/02/23 14:02 IMPRESSION: 1. Mild interstitial thickening in the lung apices perhaps secondary to chronic changes or mild edema. 2. Degenerative changes in the cervical spine. No evidence of acute osseous abnormality. 3. No acute pathology identified in the soft tissues of the neck on this noncontrast examination. Electronically Signed: Sudarshan Leslie DO at 14:42 EDT , Discharge Plan Triage Chief Complaint: Other, Pain/Inj ED Provider: Saul Woody Dx/Rx/DC Orders Instructions: ED Neck Sprain or Strain Prescriptions: No Action sildenafil [Viagra] 100 mg tablet 100 mg PO DAILY PRN (Reason: sexual activity) cetirizine 10 mg tablet 10 mg PO DAILY acetaminophen [Tylenol Extra Strength] 500 mg tablet 500 mg PO Q6H PRN (Reason: pain, fever) glipizide 2.5 mg tablet extended release 24hr 2.5 mg PO DAILY tamsulosin 0.4 MG capsule 0.4 mg PO DAILY nitroglycerin 0.4 MG tablet 0.4 mg SUBLINGUAL Q5M PRN (Reason: Chest Pain) metformin 500 mg tablet 1,000 mg PO DAILY valacyclovir 1 gram tablet 1,000 mg PO TID neomycin-polymyxin B-dexameth 3.5mg/mL-10,000 unit/mL-0.1 % drops,suspension 1 drp LEFT EYE 4X/DAY gabapentin 100 mg capsule 200 mg PO QHS Centrum Adult 50 Plus 80 mcg tablet,chewable 1 tab PO DAILY valacyclovir [Valtrex] 1 gram tablet 1,000 mg PO TID 4 Days Qty: 12 0RF Rx Instructions: Start when your first prescription is completed to complete 14 days of treatment total. amlodipine 10 mg tablet 10 mg PO QDAY Qty: 90 3RF metoprolol tartrate 50 mg tablet 50 mg PO BID Qty: 180 3RF atorvastatin 40 mg tablet 40 mg PO QHS Qty: 90 3RF Primary Care Provider: Prince Celeste Referrals: Prince Celeste MD [Primary Care Provider] - Activity Restrictions/Additional Instructions: Thank you for trusting us with your care today! Please take Tylenol (2 pills, 650 mg), ibuprofen (2 pills, 400 mg) every 6 hours as needed for pain and fever control. Please go to local pharmacy or drugstore and obtain Salonpas lidocaine patches apply these to your neck as directed. Please return to the emergency department if your symptoms change or worsen. Specifically develop trouble swallowing, loss of kdeaocduqqil-wiap-rya length, loss of vision, facial drooping, difficulty talking, difficulty breathing. Please follow with your primary care physician for further outpatient evaluation and management and possibly an outpatient MRI. Disposition Disposition: Home, Self Care Discharge Date/Time: 09/02/23 15:26
--- NOTE | 2023-09-02 14:02 | CT_ITS ---
EXAM: CT NECK WITHOUT INTRAVENOUS CONTRAST CLINICAL INDICATION: neck pain TECHNIQUE: Helically acquired images were obtained of the neck without intravenous contrast. This CT exam was performed using one or more of the following dose reduction techniques: automated exposure control, adjustment of the mA and/or kV according to patient size, and/or use of iterative reconstruction technique. COMPARISON: No relevant prior studies available. FINDINGS: NASOPHARYNX: No significant abnormality. SUPRAHYOID NECK: No significant abnormality. Oropharynx, oral cavity, parapharyngeal space and retropharyngeal space are unremarkable. INFRAHYOID NECK: No significant abnormality. The larynx, hypopharynx and supraglottis are unremarkable. SUBMANDIBULAR/PAROTID GLANDS: No significant abnormality. Glands are normal in size. THYROID: No significant abnormality. No enlarged or calcified nodules. BONES/JOINTS: Multilevel facet, uncovertebral joint, and endplate osteophytosis. Multilevel intervertebral disc height loss. Mild to moderate multilevel spinal canal stenosis. Mild to moderate multilevel neural foraminal narrowing. No acute fracture. SOFT TISSUES: No significant abnormality. VASCULATURE: Atherosclerosis of the aorta and its branch vessels. LYMPH NODES: No significant abnormality. No lymphadenopathy. LUNG APICES: Mild interstitial thickening in the lung apices perhaps secondary to chronic changes or mild edema. CT/Soft Tissue Neck without Contr IMPRESSION: 1. Mild interstitial thickening in the lung apices perhaps secondary to chronic changes or mild edema. 2. Degenerative changes in the cervical spine. No evidence of acute osseous abnormality. 3. No acute pathology identified in the soft tissues of the neck on this noncontrast examination. Electronically Signed: Sudarshan Leslie DO at 14:42 EDT ,
[2023-09-02] MEDS: Lidocaine 5% Patch 1 PATCH TOPICAL (14:15)
[2023-09-02] MEDS: dexAMETHasone 10 MG/ML Vial 6 MG IM (14:15)
[2023-09-02] MEDS: LORazepam 1 MG Tablet PO (14:16)
[2023-09-02] MEDS: Ibuprofen 200 MG Tablet 400 MG PO (14:16)
[2023-09-02 15:21] VITALS: BP 125/70; PULSE 85; RESP 18; TEMP 36.4; O2SAT 97
== END 2023-09-02 15:26 | disposition home or self-care (01) ==
PROVIDERS: Emergency Provider Emergency Medicine; PCP Internal Medicine; Visit Provider Emergency Medicine
DX: S16.1XXA Strain of muscle, fascia and tendon at neck level, initial encounter (principal); E11.9 Type 2 diabetes mellitus without complications; I10 Essential (primary) hypertension; Z87.891 Personal history of nicotine dependence; I25.10 Atherosclerotic heart disease of native coronary artery without angina pectoris; E78.00 Pure hypercholesterolemia, unspecified; I25.2 Old myocardial infarction; Z79.899 Other long term (current) drug therapy; Z79.84 Long term (current) use of oral hypoglycemic drugs; Z95.1 Presence of aortocoronary bypass graft
CPT/HCPCS: 70490; 96372; 99284

== ENCOUNTER → 2023-09-03 | Outpatient (CLI) | payer MEDICARE, SELFPAY ==
[2023-09-03 12:04] LABS: PSA,Total - Annual Screen 1.09 ng/mL (0.00-4.00)
== END | disposition home or self-care (01) ==
LOC: LAB 10:39
PROVIDERS: PCP Internal Medicine; Referring Provider Urology; Visit Provider Urology
DX: Z12.5 Encounter for screening for malignant neoplasm of prostate (principal)
CPT/HCPCS: 36415; 84153; G0103

== ENCOUNTER → 2024-01-09 | Outpatient (CLI) | payer MEDICARE, SELFPAY ==
[2024-01-09 13:12] LABS: ALB/GLOB Ratio 0.9 RATIO (0.9-2.4); AST(SGOT) 22 U/L (15-37); Alanine Aminotransfer ALT/SGPT 21 U/L (16-61); Albumin, Serum 3.3 g/dL (3.2-5.0); Alkaline Phosphatase 71 U/L (45-117); Anion Gap 7 (5-15); BUN 24 mg/dL (7-18); BUN/Creat Ratio 13.1 RATIO (10-20); Calcium,Total 9.3 mg/dL (8.5-10.1); Chloride 100 mmol/L (98-107); Cholesterol 135 mg/dL (200); Creatinine, Serum 1.83 mg/dL (0.70-1.30); EST Glomerular Filtration Rate 38 mL/min (>60); Est Glom Filt Rate - Afr Amer 46 mL/min (>60); Globulin 3.7 g/dL (2.2-4.2); Glucose 183 mg/dL (74-106); High Density Lipoprotein 41 mg/dL; Potassium 3.6 mmol/L (3.5-5.1); Sodium Level 139 mmol/L (136-145); Triglycerides 113 mg/dL; Very Low Density Lipoprotein 23 mg/dL (5-40)
== END | disposition home or self-care (01) ==
LOC: LAB 11:40
PROVIDERS: PCP Internal Medicine; Referring Provider Internal Medicine Cardiovascular Disease; Visit Provider Internal Medicine Cardiovascular Disease
DX: I34.0 Nonrheumatic mitral (valve) insufficiency (principal); I35.1 Nonrheumatic aortic (valve) insufficiency; I77.9 Disorder of arteries and arterioles, unspecified; R53.83 Other fatigue; R42 Dizziness and giddiness; I10 Essential (primary) hypertension; I25.10 Atherosclerotic heart disease of native coronary artery without angina pectoris; Z95.1 Presence of aortocoronary bypass graft; E78.00 Pure hypercholesterolemia, unspecified
CPT/HCPCS: 36415; 80053; 80061

== ENCOUNTER → 2024-01-15 | Outpatient (CLI) | payer MEDICARE, SELFPAY ==
--- NOTE | 2024-01-15 13:12 | ECHOD_ITS ---
Reason For Study: CORONARY ARTERY DISEASE Procedure This was a 2D Doppler, Color Flow transthoracic echocardiogram. Exam performed in department. Left Ventricle Normal size and thickness. The left ventricular ejection fraction is 60 %. Diastolic function is indeterminate. Right Ventricle Normal right ventricle. Atria There is moderate biatrial dilatation. Mitral Valve Moderate (2+) mitral valve insufficiency. Tricuspid Valve Moderate (2+) tricuspid valve insufficiency. Right ventricular systolic pressure estimated to be 38 mmHg. Aortic Valve Aortic sclerosis, no stenosis. Mild (1+) aortic valve insufficiency. Pulmonic Valve Mild-Moderate (1-2+) pulmonic valve insufficiency. Great Vessels Normal sized aortic root. Pericardium/Pleural No pericardial effusion. MMode/2D Measurements & Calculations LVIDd: 4.2 cm IVSd: 0.98 cm LVOT diam: 2.1 cm LVIDs: 2.9 cm LVPWd: 0.91 cm LVOT area: 3.4 cm2 RVDd: 3.9 cm FS: 31.3 % asc Aorta Diam: 3.4 cm LAV(MOD-bp): 55.0 ml LVAd ap4: 26.6 cm2 LAV(MOD-bp) Indexed: 32.3 ml/m2 LVLd ap4: 7.5 cm LAV(MOD-sp2): 50.2 ml EDV(MOD-sp4): 76.0 ml LAV(MOD-sp4): 54.0 ml EDV(sp4-el): 80.0 ml LVAs ap4: 17.1 cm2 LVLs ap4: 6.3 cm ESV(MOD-sp4): 39.1 ml ESV(sp4-el): 39.4 ml EF(MOD-sp4): 48.6 % EF(sp4-el): 50.7 % LVAd ap2: 25.5 cm2 SV(MOD-sp4): 36.9 ml SV(MOD-sp2): 37.2 ml LVLd ap2: 7.4 cm EDV(MOD-sp2): 72.6 ml EDV(sp2-el): 74.4 ml LVAs ap2: 16.3 cm2 LVLs ap2: 6.3 cm ESV(MOD-sp2): 35.3 ml ESV(sp2-el): 35.8 ml EF(MOD-sp2): 51.3 % SV(sp4-el): 40.6 ml Ao sinus diam: 3.[address] Junction: 2.4 cm LA dimension(2D): 4.2 cm LA A4 area: 20.2 cm2 RA A4 area: 15.1 cm2 TAPSE: 1.3 cm Time Measurements MV dec time: 0.16 sec Doppler Measurements & Calculations MV E max kannan: 92.9 cm/sec Lat Peak E' Kannan: 10.1 cm/sec Med Peak E' Kannan: 6.2 cm/sec MV A max kannan: 81.1 cm/sec E/E' lat: 9.2 E/E' med: 15.1 MV E/A: 1.1 MV dec slope: 595.3 cm/sec2 Ao V2 max: 121.0 cm/sec AI max kannan: 316.2 cm/sec Ao max P.9 mmHg AI max P.0 mmHg Ao V2 mean: 84.7 cm/sec AI dec slope: 163.9 cm/sec2 Ao mean P.2 mmHg AI P1/2t: 565.1 msec Ao V2 VTI: 29.7 cm AV (velocity ratio): 0.90 DREW(I,D): 3.0 cm2 DREW(V,D): 3.3 cm2 LV V1 max: 118.0 cm/sec SV(LVOT): 90.1 ml PA V2 max: 82.8 cm/sec LV V1 max P.6 mmHg PA max PG (full): 1.9 mmHg LV V1 mean P.7 mmHg LV V1 mean: 79.1 cm/sec LV V1 VTI: 26.6 cm PI end-d kannan: 104.6 cm/sec TR max kannan: 287.9 cm/sec TR max P.2 mmHg ECHO/Echo Complete Interpretation Summary The left ventricular ejection fraction is 60 %. Diastolic function is indeterminate. There is moderate biatrial dilatation. Moderate (2+) mitral valve insufficiency. Moderate (2+) tricuspid valve insufficiency. Right ventricular systolic pressure estimated to be 38 mmHg. Aortic sclerosis, no stenosis. Mild (1+) aortic valve insufficiency. Mild-Moderate (1-2+) pulmonic valve insufficiency. Ordering Physician: David Fox Referring Physician: Prince Celeste M.D. Performed By: Marisela Ibrahim RDCS
--- NOTE | 2024-01-15 13:12 | CDU_ITS ---
Reason For Study: Dizziness Rt. Velocities/BP Lt. Velocities/BP Prox CCA 78.7/12.7 cm/sec. Prox CCA 75.4/11.6 cm/sec. Mid CCA 63.3/13.8 cm/sec. Mid CCA 75.6/13.0 cm/sec. Dist CCA 87.5/17.1 cm/sec. Dist CCA 75.6/13.0 cm/sec. Prox ICA 62.2/11.7 cm/sec. Prox ICA 89.1/14.2 cm/sec. Mid ICA 73.2/20.4 cm/sec. Mid ICA 55.6/14.9 cm/sec. Dist ICA 57.0/15.7 cm/sec. Dist ICA 67.7/18.2 cm/sec. Rt. ICA/CCA = 1.2. Lt. ICA/CCA = 1.2. Prox ECA 80.9/9.5 cm/sec. Prox ECA 69.9/7.3 cm/sec. Rt. Vert. 47.9/12.7 cm/sec. Lt. Vert. 59.7/10.6 cm/sec. Right Extracranial There is heterogeneous, irregular atherosclerotic plaque noted in the right common carotid artery. There is heterogeneous, irregular atherosclerotic plaque noted in the right internal carotid artery. The atherosclerotic plaque causes acoustic shadowing. There is heterogeneous, irregular atherosclerotic plaque noted in the right external carotid artery. Antegrade flow is noted in the right vertebral artery. Left Extracranial There is homogeneous, smooth atherosclerotic plaque noted in the left common carotid artery. There is heterogeneous, irregular atherosclerotic plaque noted in the left internal carotid artery. There is heterogeneous, irregular atherosclerotic plaque noted in the left external carotid artery. Antegrade flow is noted in the left vertebral artery. Procedure Carotid Duplex 81325. This is a Carotid Duplex examination using B-mode, color flow and specral Doppler. The exam was diagnostic. Exam performed in department. VL/Carotid Duplex Ultrasound Interpretation Summary Mild (<50%) stenosis right extracranial internal carotid. Mild (<50%) stenosis left extracranial internal carotid. Patent and antegrade vertebrals bilaterally. Ordering Physician: David Fox Referring Physician: Booker Morrison Performed By: Elijah Guthrie RVT
== END | disposition home or self-care (01) ==
LOC: CVS 13:08
PROVIDERS: PCP Internal Medicine; Referring Provider Internal Medicine Cardiovascular Disease; Visit Provider Internal Medicine Cardiovascular Disease
DX: I25.10 Atherosclerotic heart disease of native coronary artery without angina pectoris (principal); I34.0 Nonrheumatic mitral (valve) insufficiency; I35.1 Nonrheumatic aortic (valve) insufficiency; I77.9 Disorder of arteries and arterioles, unspecified; R53.83 Other fatigue; R42 Dizziness and giddiness; I10 Essential (primary) hypertension; Z95.1 Presence of aortocoronary bypass graft
CPT/HCPCS: 93306; 93880

== ENCOUNTER → 2024-02-11 | Outpatient (CLI) | payer MEDICARE, SELFPAY ==
[2024-02-11 13:44] LABS: AST(SGOT) 16 U/L (15-37); Alanine Aminotransfer ALT/SGPT 17 U/L (16-61); Albumin, Serum 3.5 g/dL (3.2-5.0); Alkaline Phosphatase 68 U/L (45-117); Anion Gap 5 (5-15); BUN 35 mg/dL (7-18); BUN/Creat Ratio 15.8 RATIO (10-20); Calcium,Total 9.6 mg/dL (8.5-10.1); Chloride 100 mmol/L (98-107); Cholesterol 121 mg/dL (200); Creatinine, Serum 2.21 mg/dL (0.70-1.30); EST Glomerular Filtration Rate 31 mL/min (>60); Est Glom Filt Rate - Afr Amer 37 mL/min (>60); Globulin 3.6 g/dL (2.2-4.2); Glucose 159 mg/dL (74-106); High Density Lipoprotein 36 mg/dL; Potassium 3.8 mmol/L (3.5-5.1); Protein, Total 7.1 g/dL (6.4-8.2); Sodium Level 138 mmol/L (136-145); Triglycerides 121 mg/dL; Very Low Density Lipoprotein 24 mg/dL (5-40)
== END | disposition home or self-care (01) ==
LOC: LAB 11:47
PROVIDERS: PCP Internal Medicine; Referring Provider Internal Medicine Cardiovascular Disease; Visit Provider Internal Medicine Cardiovascular Disease
DX: I25.10 Atherosclerotic heart disease of native coronary artery without angina pectoris (principal); E11.9 Type 2 diabetes mellitus without complications; E78.00 Pure hypercholesterolemia, unspecified; I10 Essential (primary) hypertension
CPT/HCPCS: 36415; 80053; 80061

== ENCOUNTER → 2024-05-15 | Outpatient (CLI) | payer MEDICARE, SELFPAY ==
[2024-05-15 14:21] LABS: Hematocrit 39.2 % (40-54); Hemoglobin 12.9 g/dL (13.0-16.5); Mean Corp Hgb Conc 32.9 g/dL (32-36); Mean Corpuscular Hgb 30.9 pg (27.0-32.0); Mean Corpuscular Volume 93.8 fL (80-94); Mean Platelet Vol. 10.3 fl (6.2-12.0); Platelet Count 238 K/mm3 (150-450); RBC Distribution Width CV 13.2 % (11.6-14.6); RBC Distribution Width SD 45.1 fl (35.1-43.9); Red Blood Count 4.18 M/mm3 (4.6-6.2); White Blood Count 7.1 K/mm3 (4.4-11.0)
[2024-05-15 14:57] LABS: Albumin, Serum 3.5 g/dL (3.2-5.0); BUN 22 mg/dL (7-18); BUN/Creat Ratio 12.2 RATIO (10-20); Calcium,Total 9.8 mg/dL (8.5-10.1); Chloride 100 mmol/L (98-107); EST Glomerular Filtration Rate 39 mL/min (>60); Est Glom Filt Rate - Afr Amer 47 mL/min (>60); Glucose 157 mg/dL (74-106); Phosphorus 2.7 mg/dL (2.5-4.9); Potassium 4.7 mmol/L (3.5-5.1); Sodium Level 135 mmol/L (136-145)
[2024-05-15 15:03] LABS: Microalbumin:Creatinine Ratio 50.8 mg/g CRE (<30 mg/g CRE)
== END | disposition home or self-care (01) ==
LOC: LAB 13:46
PROVIDERS: PCP Internal Medicine; Referring Provider Internal Medicine Nephrology; Visit Provider Internal Medicine Nephrology
DX: E11.22 Type 2 diabetes mellitus with diabetic chronic kidney disease (principal); N18.32 Chronic kidney disease, stage 3b
CPT/HCPCS: 36415; 80069; 82043; 82570; 85027

== ENCOUNTER → 2024-07-23 | Outpatient (CLI) | payer MEDICARE, SELFPAY ==
--- NOTE | 2024-07-24 12:40 | STRESSREP_ITS ---
Stress Test Report Date: 07/23/2024 Procedure: Pharmacologic stress nuclear imaging study Indications: Coronary artery disease Consent: Per the patient Procedure: The patient underwent pharmacologic (Regadenoson 0.4mg ) evaluation with a peak heart rate of 90 beats per minute (63%predicted maximal heart rate) and a peak blood pressure of 118/68 mmHg. The baseline ECG demonstrated sinus rhythm. The peak pharmacologic ECG no ischemic changes. PVCs noted pretest, during pharmacologic infusion and in recovery. There was no complaint of chest discomfort during pharmacologic infusion or recovery. The patient was injected with 11.7 millicuries of technetium 99m Cardiolite and subsequently rest SPECT Cardiolite nuclear imaging was obtained in the horizontal long, vertical long, and short axis views. The patient underwent pharmacologic (Regadenoson) evaluation. The patient was injected with 33.8 millicuries of technetium 99m Cardiolite and subsequently stress SPECT Cardiolite nuclear imaging was obtained in the horizontal long, vertical long, and short axis views. A gated Cardiolite study at peak stress was obtained. The examination was stopped secondary to completion of protocol. Rest and stress SPECT Cardiolite nuclear imaging status post realignment, normalization, and attenuation correction demonstrate no fixed or reversible perfusion defects. There is end systolic thickening and brightening. The gated Cardiolite study demonstrates myocardial thickening and inward wall motion. The reported LVEF is 57%. Impression: 1. Pharmacologic (Regadenoson) evaluation 2. Peak pharmacologic ECG with no diagnostic ischemic changes. 3. PVCs noted pretest, during infusion and in recovery. 5. Rest and stress SPECT Cardiolite nuclear imaging demonstrate relative uniform tracer uptake and myocardial perfusion appearing within normal limits. 6. The gated Cardiolite study reports an LVEF of 57%. This note was generated with [employer] software. It may contain incorrect words, spelling, and punctuation that were not noted in checking the note before signing.
== END | disposition home or self-care (01) ==
PROVIDERS: PCP Internal Medicine; Referring Provider Internal Medicine Cardiovascular Disease; Visit Provider Internal Medicine Cardiovascular Disease
DX: I25.10 Atherosclerotic heart disease of native coronary artery without angina pectoris (principal); I77.9 Disorder of arteries and arterioles, unspecified; R07.2 Precordial pain; I25.2 Old myocardial infarction
CPT/HCPCS: 78452; 93017; A9500; A4216; J2785

== ENCOUNTER → 2024-09-29 | Outpatient (CLI) | payer MEDICARE, SELFPAY ==
[2024-09-29 15:23] LABS: PSA,Total - Annual Screen 1.33 ng/mL (0.02-4.00)
--- OUTSIDE RECORDS SUMMARY | 2024-09-29 23:44 | XMS RPT_ITS | CCD ---
Author Organization [facility] Care Team Providers Care Color Consultant Name Role Phone Myriam HOYT, Taylor Vanessa Unavailable Unavailable Johann Simmons Unavailable Unavailable Janiya Connors Unavailable Unavailable MYRNA Roy, Nga Mart Unavailable Johann Simmons Unavailable Unavailable Johann Simmons Unavailable Unavailable Prince Celeste MD Primary Care Provider Dr. Prince Celeste Primary Care Provider Dr. Prince Celeste Referring Provider Dr. Hung Markham Attending Provider Prince Celeste MD Primary Care Provider Prince Celeste MD Primary Care Provider Dr. Prince Celeste Primary Care Provider Dr. Prince Celeste Referring Provider Ruddy, Dr. Hernandez Attending Provider Deon HOPKINS, RICHIE Cutler Attending Provider Dr. Prince Celeste Primary Care Provider Dr. Prince Celeste Referring Provider Ruddy, Dr. Hernandez Attending Provider Dr. Prince Celeste Primary Care Provider Dr. Prince Celeste Referring Provider Ruddy, Dr. Hernandez Attending Provider Dr. Nigel Kaiser Emergency Provider Jopperi, Dr. Reynaldo Admit Provider Dr. Reynaldo Yin Attending Provider Dr. Reynaldo Yin Other Provider Dr. Elliot Joyce Other Provider Dr. Srikanth Edwards Attending Provider Dr. Srikanth Edwards Other Provider Booker DOLL, Prince Mckee Primary Care Provider Chaka JACKSCREW WORKER.TEXTILE PIN WORKER, Juanis M Unavailable Booker DOLL, Dr. Morrison Primary Care Provider Dr. Alayna Diamond DO Attending Provider Dr. Alayna Diamond DO Referring Provider Booker DOLL, Dr. Morrison Referring Provider Ruddy DOLL, Dr. Hernandez Attending Provider Ruddy DOLL, Dr. Hernandez Referring Provider Ruddy DOLL, Dr. Hernandez Other Provider CELESTE, MARLEE Primary Care Unavailable CELESTE, MARLEE Referring Unavailable CELESTE, MARLEE Attending Unavailable CELESTE, MARLEE Primary Care Unavailable CELESTE, MARLEE Attending Unavailable CELESTE, MARLEE Primary Care Unavailable CELESTE, MARLEE Referring Unavailable CELESTE, MARLEE Primary Care Unavailable CELESTE, MARLEE Attending Unavailable CELESTE, MARLEE Primary Care Unavailable CELESTE, MARLEE Primary Care Unavailable DALYSHAINA STONE Referring Unavailable CELESTE, MARLEE Primary Care Unavailable CELESTE, MARLEE Primary Care Unavailable OLDER, JUANIS Referring Unavailable OLDER, JUANIS Attending Unavailable CELESTE, MARLEE Primary Care Unavailable CELESTE, MARLEE Primary Care Unavailable EMILIE TANG Attending Unavailable Ruddy, David Attending Unavailable Celeste, Prince Primary Care Unavailable Ruddy, David Referring Unavailable Celeste, Prince Primary Care Unavailable Ruddy, David Referring Unavailable Ruddy, David Attending Unavailable Ruddy, David Attending Unavailable Celeste, Prince Primary Care Unavailable Celeste, Prince Referring Unavailable Celeste, Prince Primary Care Unavailable Reynaldo Garcia Attending Unavailable Ruddy, David Referring Unavailable Ruddy, David Attending Unavailable Celeste, Prince Primary Care Unavailable Ruddy, David Attending Unavailable Celeste, Prince Primary Care Unavailable Ruddy, David Referring Unavailable Ruddy, David Attending Unavailable Celeste, Prince Primary Care Unavailable Ruddy, David Referring Unavailable Celeste, Prince Primary Care Unavailable Ruddy, David Referring Unavailable Ruddy, David Consulting Unavailable Ruddy, David Attending Unavailable Ruddy, David Attending Unavailable Celeste, Prince Primary Care Unavailable Celeste, Prince Referring Unavailable Celeste, Prince Primary Care Unavailable Alayna Diamond Attending Unavailable Alayna Diamond Referring Unavailable Allergies Allergy Classification Reported Allergen(s) Allergy Type Date of Onset Reaction(s) Facility Cephalosporins (antibiotic) (1 source) Cephalexin Drug Allergy 08-09-2007 [facility] Penicillins (antibiotic) (1 source) Penicillins Drug Allergy 12-06-2004 [facility] Work Phone: Quinolones (antibiotic) (1 source) Ofloxacin Drug Allergy 12-12-2013 [facility] Work Phone: (6 sources) Penicillins (Antibiotic) drug allergy 06-24-2010 [facility] Work Phone: (20 sources) Cephalexin; Translations: [CEPHALEXIN] Drug Allergy 08-09-2007 [facility] (20 sources) Ofloxacin; Translations: [OFLOXACIN] Drug Allergy 12-12-2013 [facility] Work Phone: (8 sources) Penicillins; Translations: [PENICILLINS] Drug Allergy 12-06-2004 [facility] Work Phone: (20 sources) Penicillins Drug Allergy 12-06-2004 [facility] Work Phone: (11 sources) Penicillins Allergy to substance 04-03-2022 Unknown [facility] (6 sources) Penicillins Drug Allergy 12-06-2004 [facility] Work Phone: (1 source) Penicillins Drug allergy (disorder) 07-07-2024 [facility] Repository Medications Current Medications Medication Drug Class(es) Dates Sig (Normalized) Sig (Original) acetaminophen 500 mg oral tablet (20 sources) Start: 10-05-2021 take 1 tablet by mouth every six hours as needed for pain Acetaminophen (Tylenol Extra Strength) 500 mg tablet Active 500 mg PO EVERY 6 HOURS as needed for pain, fever October 05, 2021 12:00am take 1 tablet by benjamín th every eight hours as needed acetaminophen (TYLENOL) 500 mg tablet Ta ke 500 mg by mouth every 8 hours as needed. Active Comment on above: Take 500 mg by mouth every 8 hours as needed. amLODIPine 10 mg oral tablet (20 sources) Dihydropyridine Calcium Channel [place] Start: 9 End: 9 take 5 mg by mouth once daily Amlodipine 10 mg tablet Discontinued 5 mg PO daily March 12, 2019 3:10pm March 12, 2019 3:44pm Increased by PCP Start: 03-12-2019 End: 03-12-2019 take 5 mg by mouth once daily Amlodipine Discontinued 5 MG PO daily March 12, 2019 3:10pm March 12, 2019 3:44pm Increased by PCP Start: 01-23-2019 End: 02-18-2024 take 1 tablet by mouth once amLODIPine (NORVASC) 10 mg tablet Indications: Essential hypertension Take 1 tablet by mouth once daily[facility] 11/07/2021 Active Start: 12-16-2018 End: 01-23-2019 take 10 mg by mouth once daily Amlodipine Discontinued 10 MG PO daily December 16, 2018 10:36am January 23, 2019 5:18pm Increased by PCP Start: 12-11-2018 End: 11-07-2021 take 2 tablets by mouth once daily Amlodipine 5 mg tablet Discontinued 10 mg PO daily December 16, 2018 10:36am January 23, 2019 5:18pm Increased by PCP Start: 05-15-2014 End: 12-16-2018 take 1 tablet by mouth once daily Amlodipine 5 mg tablet Discontinued 5 mg PO daily May 14, 2018 1:05pm December 16, 2018 10:37am Comment on above: Take two (2) tablets daily of this medicine from Dr. Markham Take 1 tablet by benjamín once daily. [facility] aspirin 81 mg delayed release oral tablet (20 sources) Nonsteroidal Anti-inflammatory Drug Start: 01-01-2024 End: 01-01-2024 Aspirin (Adult Low Dose Aspirin) 81 mg tablet,delayed release (DR/EC) Active 81 mg PO daily January 01, 2024 3:01pm Start: 05-12-2014 End: 05-29-2017 take 1 tablet by mouth once daily Aspirin 81 MG tablet,chewable Discontinued 81 mg PO DAILY@0800 May 12, 2014 1:00am May 29, 2017 3:26pm Start: 04-20-2014 End: 11-30-2014 take 1 tablet by mouth every other day ASPIRIN 81 MG TABS One tablet by mouth every other day ASPIRIN [id number] Hung Markham MD Start: 04-20-2014 End: 11-30-2014 take 1 tablet by mouth every other day ASPIRIN 81 MG TABS One tablet by mouth every other day ASPIRIN [id number] Hung Markham MD Start: 07-14-2008 End: 04-20-2014 take 1 tablet by mouth once daily ASPIRIN 81 MG TABS One tablet by mouth daily ASPIRIN [id number] Shakira Lujan Start: 07-14-2008 End: 04-20-2014 take 1 tablet by mouth once daily ASPIRIN 81 MG TABS One tablet by mouth daily ASPIRIN [id number] Hung Markham MD atorvastatin 40 mg oral tablet (20 sources) HMG-CoA Reductase Inhibitor Start: 07-07-2024 take 1 tablet by mouth at bedtime Atorvastatin 40 mg tablet Active 40 mg PO AT BEDTIME July 07, 2024 12:00am Start: 05-12-2024 take 1 tablet by mouth once at orvastatin (LIPITOR) 20 mg tablet Indications: Pure hypercholesterolemia Take 20 mg by mouth once daily. [facility] 06/23/24 - 40mg per patient's medication card 3 05/12/2024 Active Start: 01-01-2024 End: 07-07-2024 take 1 tablet by mouth at bedtime Atorvastatin 20 mg tablet Discontinued 20 mg PO AT BEDTIME 90 February 08, 2024 4:59pm July 07, 2024 2:33pm Start: 06-07-2023 End: 05-12-2024 take 1 tablet by mouth once daily at bedtime for hyperlipidemia atorvastatin (LIPITOR) 40 mg tablet Indications: Pure hypercholesterolemia Take 1 tablet by mouth daily at bedtime. For cholesterol. 07/09/2023 05/12/2024 Discontinued (Dosage adjustment) Start: 08-28-2012 End: 07-09-2023 take 1 tablet by mouth at bedtime Atorvastatin 80 MG tablet Discontinued 80 mg PO AT BEDTIME May 12, 2014 1:00am June 07, 2023 4:48pm Comment on above: Take 1 tablet by benjamín th once daily. Take 1 tablet by benjamín th daily at bedtime. For cholesterol. cetirizine hydrochloride 10 mg oral tablet (20 sources) Histamine-1 Receptor Antagonist Start: 10-06-19 End: 07-09-19 take 1 tablet by mouth once daily Cetirizine 10 mg tablet Active 10 mg PO DAILY October 05, 2021 12:00am Comment on above: Take 10 mg by mouth once daily. dexamethasone 1 mg/ml / neomycin 3.5 mg/ml / polymyxin b [id number] unt/ml ophthalmic suspension (20 sources) Aminoglycoside Antibacterial, Polymyxin-class Antibacterial, Corticosteroid Start: 07-24-19 NEOMYCIN-POLYMYXIN -DEXAMETH 3.5 MG/ML-10,000 UNIT/ML-0.1% EYE DROPS Indications: Herpes zoster keratitis 07/24/2023 Active Start: 07-17-2023 Neomycin-Polym yxin B-Dexameth 3.5mg/mL-10,000 unit/mL-0.1 % drops,suspension Active 1 NMA LEFT EYE 4 TIMES DAILY July 17, 2023 12:00am Start: 07-17-2023 Neomycin-Polym yxin B-Dexameth Active 1 DRP LEFT EYE 4 TIMES DAILY July 17, 2023 12:00am diclofenac sodium 0.01 mg/mg topical gel (20 sources) Nonsteroidal Anti-inflammatory Drug Start: 04-05-2020 apply 2 g topically three times daily as needed for pain diclofenac sodium (VOLTAREN) 1 % topical gel Indications: Bilateral carpal tunnel syndrome Apply 2 g to affected area three times daily as needed (wrist pain). 50 g 2 04/05/2020 Active Comment on above: Apply 2 g to affected area three times d aily as needed (wrist pain). DULoxetine 20 mg delayed release oral capsule (20 sources) Serotonin and Norepinephrine Reuptake Inhibitor Start: 07-07-2024 take 1 capsule by mouth twice daily Duloxetine 20 mg capsule,delayed release(DR/EC) Active 20 mg PO TWICE A DAY July 07, 2024 12:00am Start: 08-29-2023 End: 06-23-2024 take 1 capsule by mouth once daily DULoxetine (CYMBALTA) 20 mg capsule Indications: Post zoster neuralgia Take 1 capsule by mouth once daily. 30 capsule 5 06/23/2024 Active Start: 08-03-2020 End: 11-23-2020 take 1 capsule by mouth once daily Duloxetine 30 mg capsule,delayed release(DR/EC) Discontinued 30 mg PO DAILY August 03, 2020 12:00am November 23, 2020 12:48pm fexofenadine hydrochloride 180 mg oral tablet (20 sources) Histamine-1 Receptor Antagonist Start: 07-09-2023 take 1 tablet by mouth once daily fexofenadine (SOWMYA ALLERGY) 180 mg tablet Take 1 tablet by mouth once daily. 07/09/2023 Active Comment on above: Take 1 tablet by benjamín once daily. gabapentin 300 mg oral capsule (20 sources) Anti-epileptic Agent Start: 05-12-2024 End: 11-08-2024 take 1 capsule by mouth once daily at bedtime gabapentin (NEURONTIN) 300 mg capsule Indications: Post zoster neuralgia Take 1 capsule by mouth daily at bedtime for 180 days. 90 capsule 1 05/12/2024 11/08/2024 Active Start: 11-01-2023 End: 06-30-2024 take 1 capsule by mouth twice daily gabapentin (NEURONTIN) 300 mg capsule Indications: Post zoster neuralgia Take 1 capsule by mouth two times a day for 90 days. 60 capsule 2 04/01/2024 05/12/2024 Discontinued Start: 08-07-2023 End: 11-05-2023 take 1 capsule by mouth three times daily gabapentin (NEURONTIN) 300 mg capsule Indications: Post zoster neuralgia Take 1 capsule by mouth three times a day for 90 days. 90 capsule 2 08/07/2023 11/01/2023 Discontinued Start: 08-01-2023 End: 01-28-2024 take 3 capsules by mouth three times daily gabapentin (NEURONTIN) 100 mg capsule Take 3 capsules by mouth three times a day for 180 days. 0 08/01/2023 08/07/2023 Discontinued (Dosage adjustment) Start: 07-17-2023 End: 08-27-2023 take 2 capsules by mouth twice daily gabapentin (NEURONTIN) 100 mg capsule Take 2 capsules by mouth two times a day for 30 days. 120 capsule 0 07/28/2023 08/01/2023 Discontinued Start: 07-17-2023 take 200 mg by mouth at bedtim e Gabapentin Active 200 MG PO AT BEDTIME July 17, 2023 12:00am Start: 07-12-2023 End: 08-11-2023 take 2 capsules by mouth once daily at bedtime gabapentin (NEURONTIN) 100 mg capsule Indications: Post zoster neuralgia Take 2 capsules by mouth daily at bedtime for 30 days. 60 capsule 0 07/12/2023 07/28/2023 Discontinued (Dosage adjustment) Comment on above: Take 2 capsules by m outh daily at bedtime for 30 days. Take 2 capsules by m outh two times a day for 30 days. Take 3 capsules by m outh three times a day for 180 days. Take 1 capsule by mo uth three times a day for 90 days. glipiZIDE er 2.5 mg 24 hr extended release oral tablet (20 sources) Sulfonylurea Start: 05-13-2024 take 1 tablet by mouth once daily glipiZIDE (GLUCOTROL XL) 2.5 mg 24 hr tablet Indications: Type 2 diabetes mellitus with stage 3a chronic kidney disease, without long-term current use of insulin (HCC) Take 1 tablet by mouth once daily. 90 tablet 1 05/13/2024 Active Start: 05-14-2023 End: 11-01-2023 take 1 tablet by mouth once daily glipiZIDE (GLUCOTROL XL) 2.5 mg 24 hr tablet Indications: Type 2 diabetes mellitus with stage 3a chronic kidney disease, without long-term current use of insulin (HCC) Take 1 tablet by mouth once daily. 90 tablet 1 05/13/2024 Active Start: 03-23-2023 take 1 tablet by benjamín once daily in the morning glipiZIDE (GLUCOTROL XL) 2.5 mg 24 hr tablet Indications: Type 2 diabetes mellitus with stage 3a chronic kidney disease, without long-term current use of insulin (HCC) Take 1 tablet by mouth every morning. 30 tablet 2 03/23/2023 Active Comment on above: Take 1 tablet by benjamín th every morning. metFORMIN hydrochloride 1000 mg oral tablet (20 sources) Biguanide Start: End: take 1 tablet by mouth once daily at breakfast metFORMIN (GLUCOPHAGE) 1,000 mg tablet Indications: Type 2 diabetes mellitus with stage 3a chronic kidney disease, without long-term current use of insulin (HCC) Take 1 tablet by mouth daily with breakfast. 90 tablet 3 08/22/2024 Active Start: 05-24-2020 take 2 tablets by mo uth once daily Metformin 500 mg tablet Active 1000 mg PO DAILY May 24, 2020 3:19pm Start: 05-24-2020 take 1000 mg by mouth once yoli ly Metformin Active 1000 MG PO DAILY May 24, 2020 3:19pm Start: 02-28-2018 End: 05-24-2020 take 2 tablets by mouth twice daily at mealtime Metformin 500 mg tablet Discontinued 1000 mg PO TWICE DAILY WITH MEALS February 28, 2018 3:09pm May 24, 2020 3:20pm Start: 02-28-2018 End: 05-24-2020 take 1000 mg by mouth twice daily at mealtime Metformin Discontinued 1000 MG PO TWICE DAILY WITH MEALS February 28, 2018 3:09pm May 24, 2020 3:20pm Start: 08-14-2011 End: 02-28-2018 take 1 tablet by mouth twice daily at mealtime Metformin 500 MG tablet Discontinued 500 mg PO TWICE DAILY WITH MEALS May 12, 2014 1:00am February 28, 2018 3:10pm Start: 08-14-2011 take 1 tablet by benjamín th twice daily METFORMIN HCL 1000 MG TABS One tablet by mouth twice daily METFORMIN HCL [id number] Hung Markham MD Comment on above: Take 1 tablet by benjamín th daily with breakfast. metoprolol tartrate 50 mg oral tablet (20 sources) beta-Adrenergic [place] Start: 0 End: take 1 tablet by mouth twice daily metoprolol tartrate, short acting, (LOPRESSOR) 50 mg tablet Indications: Coronary atherosclerosis of unspecified type of vessel, [place] or graft Take 1 tablet by mouth twice daily. 180 tablet 3 01/29/2014 Active Comment on above: Take 1 tablet by benjamín twice daily. Multivit With Min-Folic Acid (Centrum Adult 50 Plus) 80 mcg tablet,chewable (4 sources) Start: Multivit With Min-Folic Acid (Centrum Adult 50 Plus) 80 mcg tablet,chewable Active 1 {tbl} PO DAILY July 17, 2023 12:00am Start: 07-17-2023 take 1 tablet by benjamín once daily Multivit With Min-Folic Acid (Centrum Adult 50 Plus) 80 mcg tablet,chewable Active 1 TABLET PO DAILY July 17, 2023 12:00am nitroglycerin 0.4 mg sublingual tablet (20 sources) Nitrate Vasodilator Start: 07-15-2009 Nitroglycerin 0.4 MG tablet Active 0.4 mg SL Q5M as needed for Chest Pain May 12, 2014 1:00am Comment on above: Dissolve 0.4 mg unde r the tongue every 5 minutes as needed. olopatadine 1 mg/ml ophthalmic solution (20 sources) Histamine-1 Receptor Inhibitor Start: 06-12-2019 End: 07-09-2023 take 1 drop(s) into the eye(s) twice daily as needed olopatadine (PATANOL) 0.1 % ophthalmic solution Indications: Allergic conjunctivitis of both eyes Use 1 Drop in both eyes two times a day as needed (allergies). 5 mL 1 07/09/2023 Active Start: 06-12-2019 End: 08-30-2021 take 1 drop(s) into the eye(s) twice daily as needed olopatadine (PATANOL) 0.1 % ophthalmic solution Indications: Allergic conjunctivitis of both eyes Use 1 Drop in both eyes twice daily as needed (allergies). 5 mL 1 08/30/2021 Active Comment on above: Use 1 Drop in both e yes twice daily as needed (allergies). Use 1 Drop in both e yes two times a day as needed (allergies). omeprazole 20 mg delayed release oral tablet (20 sources) Proton Pump Inhibitor Start: 12-13-19 take 1 tablet by mouth once daily before breakfast Omeprazole Magnesium (PRILOSEC OTC) 20 mg tablet Indications: Gastroesophageal reflux disease, esophagitis presence not specified Take 1 tablet by mouth daily before breakfast. 1/2 hr before meal. 0 12/12/2016 Active Start: 11-27-2016 End: 11-23-2020 take 1 capsule by mouth once daily as needed Omeprazole 20 mg capsule,delayed release(DR/EC) Discontinued 20 mg PO daily as needed May 24, 2020 3:20pm November 23, 2020 12:48pm Comment on above: Take 1 tablet by benjamín th daily before breakfast. 1/2 hr before meal. sildenafil 100 mg oral tablet (20 sources) Phosphodiesterase 5 Inhibitor Start: 019 End: take 1 tablet by mouth once daily as needed sildenafil (VIAGRA) 100 mg tablet Indications: Impotence of organic origin Take 1 tablet by mouth once daily as needed (for ED.). 88 tablet 1 11/01/2023 Active Comment on above: Take 1 tablet by benjamín th once daily as needed (for ED.). tamsulosin hydrochloride 0.4 mg oral capsule (20 sources) alpha-Adrenergic [place] Start: 012 End: take 1 capsule by mouth once daily Tamsulosin 0.4 MG capsule Active 0.4 mg PO DAILY May 12, 2014 1:00am Comment on above: Take 1 capsule by mo ut daily at bedtime. Dr. Singh. THERAPEUTIC MULTIVITAMIN TAB (20 sources) Start: THERAPEUTIC MULTIVITAMIN TAB Take one(1) tablet daily. 0 07/15/2008 Active Comment on above: Take one(1) tablet d aily. traZODone hydrochloride 100 mg oral tablet (20 sources) Serotonin Reuptake Inhibitor Start: End: take 1 tablet by mouth once daily at bedtime traZODone (DESYREL) 100 mg tablet Indications: Insomnia, unspecified type Take 1 tablet by mouth daily at bedtime. 90 tablet 1 04/01/2024 Active Start: 11-08-2022 take 1 tablet by benjamín th once daily at bedtime traZODone (DESYREL) 100 mg tablet Indications: Insomnia, unspecified type Take 1 tablet by mouth daily at bedtime. 90 tablet 1 11/08/2022 Active Start: 05-04-2022 End: 11-08-2022 take 1 tablet by mouth at bedtime as needed traZODone (DESYREL) 50 mg tablet Indications: Insomnia, unspecified type Take 1 tablet by mouth at bedtime as needed (insomnia.). 90 tablet 1 06/05/2022 11/08/2022 Discontinued (Dosage adjustment) Comment on above: Take 1 tablet by benjamín th at bedtime as needed (insomnia.). Take 1 tablet by benjamín th daily at bedtime. valACYclovir 1000 mg oral tablet (8 sources) Herpesvirus Nucleoside Analog DNA Polymerase Inhibitor, Herpes Simplex Virus Nucleoside Analog DNA Polymerase Inhibitor, Herpes Zoster Virus Nucleoside Analog DNA Polymerase Inhibitor Start: 07-17-2023 End: 01-01-2024 Valacyclovir (Valtrex) 1 gram tablet Active 1000 mg PO THREE TIMES A DAY 12 July 18, 2023 12:00am Start when your first prescription is completed to complete 14 days of treatment total. Start: 07-17-2023 take 1000 mg by mout h three times daily Valacyclovir Active 1000 MG PO THREE TIMES A DAY July 17, 2023 12:00am Completed/Discontinued Medications Medication Drug Class(es) Dates Sig (Normalized) Sig (Original) clopidogrel 75 mg oral tablet (12 sources) [id number] Platelet Inhibitor Start: 10-28-2009 End: 08-14-2011 take 1 tablet by mouth once daily PLAVIX 75 MG TABS One tablet by mouth daily CLOPIDOGREL BISULFATE [id number] Hung Markham MD dapagliflozin 5 mg oral tablet (19 sources) Sodium-Glucose Cotransporter 2 Inhibitor Start: 09-08-2022 End: 06-07-2023 take 1 tablet by mouth once daily Dapagliflozin Propanediol (Farxiga) 5 mg tablet Discontinued 5 mg PO DAILY November 27, 2022 12:00am June 07, 2023 2:48pm Start: 05-05-2022 take 1 tablet by benjamín th once daily, then take 1 tablet by mouth once daily in the morning dapagliflozin (FARXIGA) 5 mg tablet Indications: Type 2 diabetes mellitus with stage 3b chronic kidney disease, without long-term current use of insulin (HCC) Take 1 tablet by mouth once daily. Take one daily in the morning 30 tablet 2 05/05/2022 Active Comment on above: Take 1 tablet by benjamín th once daily. Take one daily in the morning diphenhydrAMINE-maalox -lidocaine (BMX 1:1:1) 1:1:1 liqd (5 sources) Start: 07-25-2023 End: 07-26-2023 [id number]-hbppnk-ztn ocaine (BMX 1:1:1) 1:1:1 liqd Indications: Mouth sores Mix in equal amounts - 1 T every 2hrs as needed for mouth pain, Swish/swallow or expectorate. (8oz) 240 mL 0 07/25/2023 07/26/2023 Discontinued (Lack of Efficacy) Start: 07-09-2023 End: 07-25-2023 opijmpknhuBLETK-wsilgy-yrcte humaira (BMX 1:1:1) 1:1:1 liqd Indications: Aphthae, oral Mix in equal amounts - 1 T every 2hrs as needed for mouth pain, Swish/swallow or expectorate. (8oz) 240 mL 0 07/09/2023 07/25/2023 Discontinued Start: 07-09-2023 diphenhydrAMIN Y-uikame-gbofeffyj (BMX 1:1:1) 1:1:1 liqd Indications: Aphthae, oral Mix in equal amounts - 1 T every 2hrs as needed for mouth pain, Swish/swallow or expectorate. (8oz) 240 mL 0 07/09/2023 Active Comment on above: Mix in equal amounts - 1 T every 2hrs as needed for mouth pain, Swish/swallow or expectorate. (8oz) ezetimibe 10 mg oral tablet (18 sources) Dietary Cholesterol Absorption Inhibitor Start: 2 End: 3 take 1 tablet by mouth once daily ZETIA 10 MG TABS One tablet by mouth daily EZETIMIBE [id number] Aleta Casey RN EZETIMIBE-SIMVASTA TIN (6 sources) HMG-CoA Reductase Inhibitor, Dietary Cholesterol Absorption Inhibitor Start: 0 take 1 tablet by mouth at bedtime VYTORIN 10-40 MG TABS One tablet by mouth at bedtime. EZETIMIBE-SIMVASTATI N [id number] Shakira Lujan Start: 10-28-2009 take 1 tablet by benjamín th at bedtime VYTORIN 10-40 MG TABS One tablet by mouth at bedtime. EZETIMIBE-SIMVASTATIN [id number] Shakira Lujan furosemide 20 mg oral tablet (20 sources) Loop Diuretic Start: 01-01-2024 End: 02-11-2024 take 1 tablet by mouth once daily in the morning Furosemide 20 mg tablet Discontinued 20 mg PO EVERY MORNING January 01, 2024 3:02pm February 11, 2024 2:03pm Start: 08-18-2008 End: 11-28-2012 take 1 tablet by mouth once daily LASIX 40 MG TABS One tablet by mouth daily when needed FUROSEMIDE [id number] Nga Roy PA-C hydroCHLOROthiazide 12.5 mg oral capsule (20 sources) Thiazide Diuretic Start: 05-12-2014 End: 05-29-2017 take 1 capsule by mouth once daily Hydrochlorothiazide 12.5 MG capsule Discontinued 12.5 mg PO DAILY May 12, 2014 1:00am May 29, 2017 3:27pm Start: 10-01-2013 End: 06-01-2015 take 1 tablet by mouth once daily HYDROCHLOROTHIAZIDE 12.5 MG TABS One tablet by mouth daily HYDROCHLOROTHIAZIDE [id number] Nga Roy PA-C hydrocortisone 10 mg/ml topical lotion (20 sources) Corticosteroid End: 05-14-2023 hydrocortisone (HYTONE,CETACORT) 1 % lotion Apply to affected area twice daily. Using for current rash on chest and underarms 05/14/2023 Discontinued Comment on above: Apply to affected ar ea twice daily. Using for current rash on chest and underarms losartan potassium 100 mg oral tablet (20 sources) Angiotensin 2 Receptor [place] Start: 10-25-2010 End: 05-24-2020 take 1 tablet by mouth once daily Losartan 100 mg tablet Discontinued 100 mg PO DAILY July 28, 2019 11:18am May 24, 2020 3:17pm Start: 10-28-2009 take 1 tablet by benjamín th once daily COZAAR 50 MG TABS One tablet by mouth daily LOSARTAN POTASSIUM [id number] Shakira Lujan nabumetone 750 mg oral tablet (12 sources) Nonsteroidal Anti-inflammatory Drug Start: 10-28-2009 End: 11-28-2012 take 1 tablet by mouth once daily NABUMETONE 750 MG TABS One tablet by mouth daily NABUMETONE [id number] Nga Roy PA-C naproxen sodium 220 mg oral capsule (14 sources) Nonsteroidal Anti-inflammatory Drug Start: 02-28-2018 End: 10-05-2021 take 1 capsule by mouth twice daily as needed Naproxen Sodium (Aleve) 220 mg capsule Discontinued 220 mg PO TWICE A DAY as needed February 28, 2018 1:00am October 05, 2021 1:05pm 24 hr niacin 500 mg extended release oral tablet (20 sources) Nicotinic Acid Start: 05-12-2014 End: 05-29-2017 take 1 tablet by mouth once daily Niacin 500 MG tablet extended release 24 hr Discontinued 500 mg PO DAILY May 12, 2014 1:00am May 29, 2017 3:27pm Start: 04-20-2014 take 1 tablet by benjamín th once daily NIACIN 500 MG TABS One tablet by mouth daily NIACIN [id number] Nga Roy PA-C Start: 06-24-2010 End: 11-28-2012 take 1 tablet by mouth at bedtime NIASPAN 500 MG CR-TABS (ER) One tablet by mouth at bedtime. NIACIN (ANTIHYPERLIPIDEMIC) [id number] Nga Roy PA-C Start: 06-24-2010 End: 11-28-2012 take 1 tablet by mouth at bedtime NIASPAN 500 MG CR-TABS (ER) One tablet by mouth at bedtime. NIACIN (ANTIHYPERLIPIDEMIC) [id number] Nga Roy PA-C nystatin 100 unt/mg topical powder (5 sources) Polyene Antifungal Start: 04-28-2021 End: 11-07-2021 nystatin (MYCOSTATIN) powder Indications: Rash Apply 1 application to affected area four times daily. 30 g 1 04/28/2021 11/07/2021 Discontinued Comment on above: Apply 1 application to affected area four times daily. nystatin 100 unt/mg / triamcinolone acetonide 0.001 mg/mg topical ointment (5 sources) Polyene Antifungal, Corticosteroid Start: 04-28-2021 End: 11-07-2021 nystatin-triamcino lone (MYCOLOG) ointment Indications: Rash Apply sparingly to perineum twice daily for irritation/infecti on. 30 g 1 04/28/2021 11/07/2021 Discontinued Comment on above: Apply sparingly to p erineum twice daily for irritation/infection. pantoprazole 40 mg delayed release oral tablet (20 sources) Proton Pump Inhibitor Start: 02-19-2012 End: 05-29-2017 take 1 tablet by mouth once daily Pantoprazole 40 MG tablet Discontinued 40 mg PO DAILY May 12, 2014 1:00am May 29, 2017 3:27pm Start: 06-24-2010 take 1 tablet by benjamín th once daily PROTONIX 40 MG (PANTOPRAZOLE SODIUM) One tablet by mouth daily PROTONIX 40 MG (PANTOPRAZOLE SODIUM) Shakira Lujan Start: 06-24-2010 End: 11-27-2016 take 1 tablet by mouth once daily PROTONIX 40 MG TBEC One tablet by mouth daily PANTOPRAZOLE SODIUM [id number] Hung Markham MD phenazopyridine hydrochloride 200 mg oral tablet (20 sources) Start: 04-20-2014 End: 05-29-2017 take 1 tablet by mouth once daily Phenazopyridine 200 MG tablet Discontinued 200 mg PO DAILY May 12, 2014 1:00am May 29, 2017 3:27pm pioglitazone 45 mg oral tablet (18 sources) Peroxisome Proliferator Receptor alpha Agonist, Peroxisome Proliferator Receptor gamma Agonist, Thiazolidinedione Start: 10-25-2010 End: 08-14-2011 take 1 tablet by mouth once daily ACTOS 45 MG TABS One tablet by mouth daily PIOGLITAZONE HCL [id number] Hung Markham MD Start: 08-24-2008 take 1 tablet by benjamín th once daily ACTOS 30 MG TABS One tablet by mouth daily PIOGLITAZONE HCL [id number] Shakira Lujan potassium chloride 10 meq extended release oral tablet (20 sources) Start: 01-01-2024 End: 02-11-2024 take 1 tablet by mouth once daily Potassium Chloride 10 mEq tablet extended release Discontinued 10 meq PO daily January 01, 2024 3:02pm February 11, 2024 2:03pm Start: 04-20-2014 End: 05-29-2017 take 1 tablet by mouth once daily Potassium Chloride 20 MEQ tablet Discontinued 20 meq PO DAILY May 12, 2014 1:00am May 29, 2017 3:27pm Start: 06-24-2010 End: 11-28-2012 take 1 tablet by mouth once daily POTASSIUM CHLORIDE 20 MEQ PACK One tablet by mouth daily POTASSIUM CHLORIDE [id number] Shakira Lujan Start: 06-24-2010 End: 11-28-2012 take 1 tablet by mouth once daily POTASSIUM CHLORIDE 20 MEQ PACK One tablet by mouth daily POTASSIUM CHLORIDE [id number] Shakira Lujan pravastatin sodium 80 mg oral tablet (12 sources) HMG-CoA Reductase Inhibitor Start: 05-23-2011 End: 08-28-2012 take 1 tablet by mouth once daily at bedtime PRAVASTATIN SODIUM 80 MG TABS One tablet by mouth daily at bedtime PRAVASTATIN SODIUM [id number] Winter Hernandez RN predniSONE 20 mg oral tablet (7 sources) Start: 07-17-2023 End: 07-18-2023 take 1 tablet by mouth once daily Prednisone 20 mg tablet Discontinued 20 mg PO DAILY July 17, 2023 12:00am July 18, 2023 3:53pm Start: 09-27-2022 End: 10-02-2022 take 5 tablets by mouth once daily, then take 4 tablets by mouth once daily, then take 3 tablets by mouth once daily, then take 2 tablets by mouth once daily, then take 1 tablet by mouth once daily predniSONE (DELTASONE) 10 mg tablet Indications: Elbow pain, left Take 5 tablets by mouth once daily for 1 day, THEN 4 tablets once daily for 1 day, THEN 3 tablets once daily for 1 day, THEN 2 tablets once daily for 1 day, THEN 1 tablet once daily for 1 day. 15 tablet 0 09/27/2022 10/02/2022 Active Start: 04-20-2022 End: 04-25-2022 take 1 tablet by mouth once daily predniSONE (DELTASONE) 20 mg tablet Indications: Acute foot pain, left Take 1 tablet by mouth once daily for 5 days. 5 tablet 04/20/2022 04/25/2022 Comment on above: Take 1 tablet by benjamín th once daily for 5 days. Take 5 tablets by mo uth once daily for 1 day, THEN 4 tablets once daily for 1 day, THEN 3 tablets once daily for 1 day, THEN 2 tablets once daily for 1 day, THEN 1 tablet once daily for 1 day. RANOLAZINE (12 sources) Anti-anginal Start: 05-13-2014 End: 05-15-2014 take 1 tablet by mouth twice daily RANEXA 500 MG [id number] One tablet by mouth twice daily RANOLAZINE [id number] Winter Hernandez RN Start: 05-13-2014 End: 05-15-2014 take 1 tablet by mouth twice daily RANEXA 500 MG [id number] One tablet by mouth twice daily RANOLAZINE [id number] Winter Hernandez RN Start: 05-13-2014 take 1 tablet by benjamín th twice daily RANEXA 500 MG [id number] One tablet by mouth twice daily RANOLAZINE [id number] Hung Markham MD tadalafil 10 mg oral tablet (20 sources) Phosphodiesterase 5 Inhibitor Start: 07-15-2009 End: 03-12-2019 take 1 tablet by mouth once daily Tadalafil 10 MG tablet Discontinued 10 mg PO DAILY May 12, 2014 1:00am March 12, 2019 3:09pm Start: 07-15-2009 CIALIS 20 MG T ABS Take as directed TADALAFIL [id number] Hung Markham MD Problems Active Problems Problem Classification Problem Date Documented Date Episodic/Chronic Administrative/social admission (1 source) Worried well; Translations: [Person with feared health complaint in whom no diagnosis is made] 01-07-2023 Episodic Blindness and vision defects (8 sources) Diplopia; Translations: [Diplopia] 07-17-2023 Episodic Cancer of bladder (20 sources) Malignant tumor of urinary bladder; Translations: [Malignant neoplasm of bladder, unspecified] Onset: 05-20-2009 05-20-2009 Chronic Chronic kidney disease (20 sources) Chronic kidney disease stage 3; Translations: [CKD (chronic kidney disease) stage 3, GFR 30-59 ml/min] Onset: 06-28-2015 Resolved: 11-07-2021 11-07-2021 Chronic Coronary atherosclerosis and other heart disease (20 sources) Atherosclerotic heart disease of [place] coronary artery without angina pectoris; Translations: [Coronary arteriosclerosis] Onset: 07-08-2008 05-30-2016 Chronic Comment on above: 06/30/08 Emergency 5- vessel coronary artery bypass grafting utilizing ESCOBAR to LAD, SVG to first and second branches of anterior descending as well as SVG to the CX and RCA Diabetes mellitus with complications (20 sources) Peripheral circulatory disorder associated with type 2 diabetes mellitus; Translations: [Type 2 diabetes mellitus] Onset: 06-24-2010 06-24-2010 Chronic Diabetes mellitus without complication (7 sources) Diabetes mellitus; Translations: [Type 2 diabetes mellitus without complications] 07-17-2023 Chronic Diabetes mellitus without complication (1 source) Diabetes mellitus without complication; Translations: [Type 2 diabetes mellitus with stage 3a chronic kidney disease, without long-term current use of insulin (HCC)] Onset: 06-13-2018 Diseases of mouth; excluding dental (2 sources) Aphthous ulcer of mouth; Translations: [Recurrent oral aphthae] 07-09-2023 Episodic Disorders of lipid metabolism (20 sources) Hyperlipidemia; Translations: [Pure hypercholesterolemia] Onset: 12-14-2004 06-24-2010 Chronic Esophageal disorders (20 sources) Gastroesophageal reflux disease; Translations: [Gastro-esophageal reflux disease without esophagitis] Onset: 02-17-2009 06-13-2018 Chronic Essential hypertension (20 sources) Hypertensive disorder; Translations: [Essential hypertension] Onset: 12-06-2004 06-24-2010 Chronic Heart valve disorders (6 sources) Aortic valve regurgitation; Translations: [Nonrheumatic aortic (valve) insufficiency] Onset: 01-01-2024 01-01-2024 Chronic Hypertension with complications and secondary hypertension (20 sources) Hypertensive renal disease; Translations: [Hypertensive chronic kidney disease with stage 1 through stage 4 chronic kidney disease, or unspecified chronic kidney disease] Onset: 11-03-2021 Chronic Immunizations and screening for infectious disease (3 sources) Vaccination needed; Translations: [Encounter for immunization] 11-08-2022 Episodic Nonspecific chest pain (20 sources) Precordial pain; Translations: [Precordial pain] Onset: 06-24-2010 06-24-2010 Episodic Osteoarthritis (20 sources) Osteoarthritis; Translations: [Unspecified osteoarthritis, unspecified site] Onset: 05-20-2009 05-20-2009 Chronic Other aftercare (14 sources) H/O: high risk medication; Translations: [Other fpc (current) drug therapy] 05-29-2017 Episodic Other circulatory disease (6 sources) Disorder of carotid artery; Translations: [Disorder of arteries and arterioles, unspecified] 06-07-2023 Chronic Other circulatory disease (6 sources) Disorder of arteries and arterioles, unspecified; Translations: [Unspecified disorders of arteries and arterioles] Onset: 01-01-2024 06-07-2023 Chronic Other connective tissue disease (3 sources) Foot pain; Translations: [Pain in left foot] Episodic Other connective tissue disease (3 sources) Pain in left foot; Translations: [Pain in left foot] 08-26-2024 Episodic Other connective tissue disease (1 source) Pain in left foot; Translations: [Left foot pain] Onset: 08-26-2024 Episodic Other endocrine disorders (1 source) Hypoglycemia; Translations: [Hypoglycemia, unspecified] 11-01-2023 Chronic Other eye disorders (3 sources) Sixth [abducent] nerve palsy, unspecified eye; Translations: [Sixth or abducens nerve palsy] 07-18-2023 Episodic Other injuries and conditions due to external causes (1 source) Injury of head; Translations: [Unspecified injury of head, initial encounter] 07-09-2023 Episodic Other lower respiratory disease (20 sources) Dyspnea; Translations: [Dyspnea, unspecified] Onset: 06-24-2010 06-24-2010 Episodic Other male genital disorders (20 sources) Secondary erectile dysfunction; Translations: [Male erectile dysfunction, unspecified] Onset: 05-26-2008 05-26-2008 Chronic Other non-traumatic joint disorders (2 sources) Pain in elbow; Translations: [Pain in left elbow] Episodic Other screening for suspected conditions (not mental disorders or infectious disease) (20 sources) Abnormal result of cardiovascular function study, unspecified; Translations: [Abnormal results of cardiovascular function studies] Onset: 06-24-2010 05-07-2014 Episodic Other skin disorders (3 sources) Keratosis; Translations: [Epidermal thickening, unspecified] Episodic Other skin disorders (1 source) Eruption; Translations: [Rash and other nonspecific skin eruption] 07-09-2023 Episodic Other upper respiratory infections (2 sources) Upper respiratory infection; Translations: [Acute upper respiratory infection, unspecified] 04-12-2023 Episodic Residual codes; unclassified (16 sources) Family history of stroke; Translations: [Family history of stroke] 09-29-2013 Episodic Residual codes; unclassified (15 sources) Edema; Translations: [Edema, unspecified] Onset: 06-24-2010 06-24-2010 Episodic Residual codes; unclassified (14 sources) FH: Cardiovascular disease; Translations: [Family history of ischemic heart disease and other diseases of the circulatory system] 05-29-2017 Episodic Comment on above: Male < 55 Residual codes; unclassified (1 source) Swelling - edema - symptom; Translations: [Edema, unspecified] Episodic Residual codes; unclassified (1 source) Viral syndrome; Translations: [Other general symptoms and signs] 04-12-2023 Episodic Sprains and strains (1 source) Sprain of talofibular ligament of left ankle; Translations: [Sprain of other ligament of left ankle, initial encounter] Episodic Unclassified (2 sources) Long-term drug therapy; Translations: [Other terminal superintendent (current) drug therapy] Onset: 06-24-2010 06-24-2010 Past or Other Problems Problem Classification Problem Date Documented Da te Episodic/Chronic Abdominal hernia (20 sources) Right inguinal hernia ; Translations: [Unilateral inguinal hernia, without obstruction or gangrene, not specified as recurrent] Onset: 12-25-2012 Resolved: 03-06-2013 03-06-2013 Episodic Abdominal pain (6 sources) Left upper quadrant pain; Translations: [Left upper quadrant pain] Onset: 05-07-2014 05-07-2014 Episodic Conditions associated with dizziness or vertigo (15 sources) Dizziness; Translations: [Dizziness and giddiness] Onset: 01-01-2024 04-03-2022 Episodic Coronary atherosclerosis and other heart disease (17 sources) Presence of aortocoronary bypass graft; Translations: [History of myocardial infarction] Onset: 06-21-2008 06-24-2010 Episodic Deficiency and other anemia (20 sources) Anemia; Translations: [Anemia, unspecified] Onset: 07-20-2008 Resolved: 03-06-2013 03-06-2013 Episodic Genitourinary symptoms and ill-defined conditions (20 sources) Dysuria; Translations: [Dysuria] Onset: 09-04-2012 Resolved: 03-06-2013 03-06-2013 Episodic Inflammation; infection of eye (except that caused by tuberculosis or sexually transmitteddisease) (20 sources) Allergic conjunctivitis of bilateral eyes; Translations: [Acute atopic conjunctivitis, bilateral] Onset: 07-25-2023 Episodic Malaise and fatigue (20 sources) Fatigue; Translations: [Other fatigue] Onset: 04-20-2014 04-20-2014 Episodic Other aftercare (4 sources) Other fpc (current) drug therapy; Translations: [Other fpc (current) drug therapy] Onset: 06-24-2010 06-24-2010 Episodic Other circulatory disease (12 sources) History of myocardial infarction; Translations: [Abnormal result of cardiovascular function study, unspecified] Onset: 06-24-2010 06-24-2010 Episodic Other connective tissue disease (20 sources) Soft tissue lesion of shoulder region; Translations: [Bursopathy, unspecified] Onset: 05-26-2008 Resolved: 03-06-2013 03-06-2013 Episodic Other eye disorders (20 sources) Abducens nerve palsy; Translations: [Sixth [abducent] nerve palsy, unspecified eye] Onset: 07-25-2023 07-17-2023 Episodic Other inflammatory condition of skin (20 sources) Dermatitis herpetiformis; 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] Onset: 08-29-2007 Resolved: 03-13-2014 03-13-2014 Chronic Other non-epithelial cancer of skin (20 sources) Malignant neoplasm of scalp and/or skin of neck; Translations: [Squamous cell carcinoma of skin of scalp and neck] Onset: 06-12-2019 06-12-2019 Episodic Other nutritional; endocrine; and metabolic disorders (6 sources) Body mass index (BMI) 26.0-26.9, adult; Translations: [Body mass index (BMI) 26.0-26.9, adult] Onset: 04-20-2014 04-20-2014 Episodic Other nutritional; endocrine; and metabolic disorders (20 sources) Overweight; Translations: [Overweight] Onset: 07-15-2008 Resolved: 03-13-2014 03-13-2014 Episodic Residual codes; unclassified (20 sources) Insomnia; Translations: [Insomnia, unspecified] Onset: 11-08-2022 Episodic Spondylosis; intervertebral disc disorders; other back problems (20 sources) Lumbago with sciatica; Translations: [Lumbago with sciatica, unspecified side] Onset: 03-16-2015 Resolved: 12-12-2016 03-16-2015 Episodic Superficial injury; contusion (4 sources) Contusion of toe(s) with damage to nail; Translations: [Contusion of right great toe with damage to nail, initial encounter] Onset: 09-18-2023 09-17-2023 Episodic Unclassified (14 sources) Family history of ischemic heart disease and other diseases of the circulatory system; Translations: [Edema] Onset: 06-24-2010 09-29-2013 Episodic Viral infection (20 sources) Plantar wart of left foot; Translations: [Plantar wart] Onset: 07-25-2023 11-08-2022 Episodic Results Test Name Value Interpretation Reference Range Facility [facility] 08-26-2024 CNOV Office Visit (INTMWS ) SEDA MENCHACA ([id number]) 1945 M Date Time Provider Department 08/26/24 11:40 AM JUANIS HAWTHORNE INTMWS During your visit today, we recorded the following information about you: Pulse Respiration Blood pressure Weight 86/minute 12/minute 116/74 63.3 kg Juanis Hawthorne, JACKSCREW WORKER.TEXTILE PIN WORKER 08/26/2024 11:56 AM Signed We discussed your left foot pain: - You reported sharp pain in the arch of your left foot that worsens when standing and is most severe in the morning. The pain improves slightly as the day progresses. You also noted some numbness underneath your foot, which is related to your diabetes. There is no swelling, bruising, or history of injury. - I performed an exam and identified a tender spot in the arch of your foot. Based on your symptoms, the pain may be due to plantar fasciitis (inflammation of the tissue along the bottom of the foot) or arthritis. However, we will start with an x-ray to rule out a stress fracture. - Please proceed to the main entrance to check in for your x-ray today. The x-ray will help us determine if there is a fracture. If the x-ray is negative and the pain persists, it may be related to inflammation or arthritis. - You are currently using inserts provided by your foot doctor. If the pain does not improve or becomes recurrent, I recommend following up with your foot doctor for further evaluation and management. - You may continue taking your [id number] pain medication as needed for relief. If the pain worsens or does not improve, please let us know. Next steps: - Complete the x-ray today as discussed. - If your foot pain does not improve or becomes persistent, please schedule a follow-up appointment with me or your foot doctor. Juanis Hawthorne, JACKSCREW WORKER.TEXTILE PIN WORKER 08/26/2024 12:00 PM Signed CC: Patient presents with: Pain: Left foot x 4 days HPI Recording using [employer] software for draft documentation of the visit was discussed with the patient/authorized personnel representative; all questions welcomed and answered. Patient/authorized personnel representative agreed to proceed Seda is a 78-year-old male with a history of diabetes mellitus and neuropathy, presenting with acute onset of left foot pain. Seda reports a sudden onset of sharp pain in the left foot, localized to the arch and extending to the heel, beginning last . The pain is exacerbated by weight-bearing activities such as standing and is most severe upon waking in the morning, gradually improving throughout the day. The pain is alleviated when sitting. He denies any recent trauma or injury to the foot and has not noticed any swelling or ecchymosis. He has a history of intermittent foot pain, with the last episode occurring 2-3 months ago, which resolved spontaneously. He has not previously discussed this issue with his budget manager, Dr. Tang. Seda also reports chronic numbness in the foot, which he attributes to diabetic neuropathy. 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 He is using custom orthotic inserts provided by his budget manager. 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 Singh. CORONARY ATHEROSCLER UNSPEC VESSEL 07/08/2008 Dr. Markham, [facility]. 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 Terrazas, [facility]. Type II or unspecified type diabetes mellitus without mention of complication, not stated as uncontrolled 12/06/2004 Unspecified essential hypertension 12/06/2004 PAST SURGICAL HISTORY Procedure Laterality Date COLONOSCOPY FLX DX W/COLLJ SPEC WHEN PFRMD 03/25/2004 Colonoscopy COLONOSCOPY FLX DX W/COLLJ SPEC WHEN PFRMD 04/07/2016 normal 10 year follow up CORONARY ARTERY BYP W/VEIN AND ARTERY GRAFT 4 VEIN CABG, 5 vessel CYSTO W/REMOVAL OF TUMORS SMALL 04/21/2009 Excision bladder tumor CYSTOURETHROSCOPY Cystoscopy annually last 2017 DIABETES with stage 3 kidney disease ESOPHAGOGASTRODUODENOS COPY TRANSORAL DIAGNOSTIC 03/25/2004 EGD LEFT HEART CATH (more content not included)... Normal [facility] XR FOOT 3V AP/LAT/OBL LTon 0 08-26-2024 XR FOOT 3V AP/LAT/OBL LT * * *Final Repo rt* * * DATE OF EXAM: Aug 26 2024 12:12PM WOX [id number] - XR FOOT 3V AP/LAT/OBL LT / PROCEDURE REASON: Left foot pain * * * * Physician Interpretation * * * * EXAMINATION: XR FOOT 3V AP/LAT/OBL LT CLINICAL HISTORY: Left foot pain Acute left foot pain at arch of foot, no known injury. COMPARISON: 04/20/2022 FINDINGS: No evidence of fracture, dislocation, or destructive process. Mild degenerative changes of the midfoot. Subarticular degenerative cysts in the distal navicular. Small plantar and Achilles calcaneal enthesophytes. Arterial calcifications. IMPRESSION: No acute bone abnormality. Mild degenerative changes. Small plantar and Achilles calcaneal enthesophytes. Nurse College: [employer] Transcribe Date/Time: Aug 31 2024 10:47P Dictated by : KARINA MAURICIO MD This examination was interpreted and the report reviewed and electronically signed by: KARINA MAURICIO MD on Aug 31 2024 10:49PM EST [id number] Normal [facility] 07-29-[address] [facility] Telephone (INTMWS) SEDA MENCHACA ([id number]) 1945 M Date Time Provider Department 07/29/24 PRINCE CELESTE INTWS During your visit today, we recorded the following information about you: Philomena Tatum, EVELINA 07/29/2024 4:16 PM Signed Pt called in and reports the arch of his L foot has been hurting him x1 week now. He states he has been taking Tylenol for it with minimal relief. Pt reports the pain is a 7/10 aching and it comes and goes with it being worse in the morning, and it get better throughout the day and lets up as he uses it. Pt states he had the same thing happen about 2 months ago with the same foot for a bout 2-3 weeks and he used ice and it helped some, but it went away on its own. I tried to make an appointment for the Pt, but he wanted to know if the provider had any recommendations on what he could do for the pain. Please call and advise. Prince Celeste MD 07/30/2024 8:52 AM Signed Massage left foot 5 to 10 minutes TID by rolling on tennis ball. Foot and heel stretches on getting up every AM. Appointment if needed. Philomena Tatum RN 07/30/2024 9:10 AM Signed Called and left a voicemail for the Patient to call back and ask for a nurse to receive the providers message. EVELINA Burrell Sherrie, RN 07/30/2024 12:30 PM Signed Patient returned call and given provider's message below and patient verbalized understanding. Radha Stoddard RN Allergies As of Date: 07/29/2024 Noted Allergy Reaction KEFLEX (CEPHALEXIN) 08/09/2007 2 - Rash Comments: Rash and itching.Pt told by to discontinue Keflex immediately. OFLOXACIN 12/12/2013 4 - Hives Comments: ofloxacin ear drops PENICILLINS 12/06/2004 2 - Rash Date Reviewed: 06/23/2024 Reviewed by: Philomena Ortega, EVELINA - Fully Assessed Reason for Visit: Patient Update [1234] Patient Question [9087] Prescriptions as of 07/30/2024 - blood sugar diagnostic (ONETOUCH ULTRA TEST) test strip Test blood sugar(s) 1 times daily. Dx:E11.9 Insulin: no - DULoxetine (CYMBALTA) 20 mg capsule Take 1 capsule by mouth once daily. - tamsulosin (FLOMAX) 0.4 mg Take 0.4 mg by mouth once daily. - glipiZIDE (GLUCOTROL XL) 2.5 mg 24 hr tablet Take 1 tablet by mouth once daily. - gabapentin (NEURONTIN) 300 mg capsule Take 1 capsule by mouth daily at bedtime for 180 days. - atorvastatin (LIPITOR) 20 mg tablet Take 20 mg by mouth once daily. [facility] 06/23/24 - 40mg per patient's medication card - traZODone (DESYREL) 100 mg tablet Take 1 tablet by mouth daily at bedtime. - sildenafil (VIAGRA) 100 mg tablet Take 1 tablet by mouth once daily as needed (for ED.). - SJTXQLPH-YYVUPHRUI-NPD AMETH 3.5 MG/ML-10,000 UNIT/ML-0.1% EYE DROPS - metFORMIN (GLUCOPHAGE) 1,000 mg tablet Take 1 tablet by mouth daily with breakfast. - olopatadine (PATANOL) 0.1 % ophthalmic solution Use 1 Drop in both eyes two times a day as needed (allergies). - fexofenadine (SOWMYA ALLERGY) 180 mg tablet Take 1 tablet by mouth once daily. - amLODIPine (NORVASC) 10 mg tablet Take 1 tablet by mouth once daily. [facility] - acetaminophen (TYLENOL) 500 mg tablet Take 500 mg by mouth every 8 hours as needed. - diclofenac sodium (VOLTAREN) 1 % topical gel Apply 2 g to affected area three times daily as needed (wrist pain). - Omeprazole Magnesium (PRILOSEC OTC) 20 mg tablet Take 1 tablet by mouth daily before breakfast. 1/2 hr before meal. - nitroglycerin sublingual (NITROQUICK) 0.4 mg SL tablet Dissolve 0.4 mg under the tongue every 5 minutes as needed. - metoprolol tartrate, short acting, (LOPRESSOR) 50 mg tablet Take 1 tablet by mouth twice daily. - THERAPEUTIC MULTIVITAMIN TAB Take one(1) tablet daily. 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] 08/29/2007 03/13/2014 Disorders of bursae and tendons in shoulder reg*05/26/2008 03/06/2013 IMPOTENCE, ORGANIC ORIGN [N52.9] 05/26/2008 Coronary atherosclerosis [I25.10] 07/08/2008 Overweight(278.02) [E66.3] 07/15/2008 03/13/2014 Anemia, unspecified [D64.9] 07/20/2008 03/06/2013 GERD (gastroesophageal reflux disease) [K21.9] 02/17/2009 Bladder Cancer [C67.9] 05/20/2009 Osteoarthritis [M19.90] 05/20/2009 Dysuria [R30.0] 09/04/2012 03/06/2013 Right inguinal hernia [K40.90] 12/25/2012 03/06/2013 Lumbago with sciatica, unspecified side [M54.40]03/16/2015 CKD (chronic kidney disease) stage 3, GFR 30-59*06/28/2015 11/07/2021 Acute bilateral low back pain without sciatica *12/01/2015 12/12/2016 Cervicalgia of sdqvwsmy-vyznrtc-glacb region [M*06/13/2018 Squamous cell cancer of scalp and skin of neck *06/12/2019 Arthritis of hand [M19.049] 01/21/2020 Hypertensive kidney disease with stage 3 chroni*10/21 (more content not included)... Normal [facility] Cardiovascular stress test r eportOrdered By: David Fox on 07-24-2024 Study report [facility] [address] [place] [address] MR#: [id number] Acct: [id number] Name: SEDA MENCHACA Rep #: [id number] : 1945 78 From: David Fox MD Primary Care: Dr. Prince Celeste MD atus: REG CLI Referring Dr: David Fox MD Sex: M C Stress Test Report Date: 07/23/2024 Procedure: Pharmacologic stress nuclear imaging study Indications: Coronary artery disease Consent: Per the patient Procedure: The patient underwent pharmacologic (Regadenoson 0.4mg ) evaluation with a peak heart rate of 90 beats per minute (63%predicted maximal heart rate) and a peak blood pressure of 118/68 mmHg. The baseline ECG demonstrated sinus rhythm. The peak pharmacologic ECG no ischemic changes. PVCs noted pretest, during pharmacologic infusion and in recovery. There was no complaint of chest discomfort during pharmacologic infusion or recovery. The patient was injected with 11.7 millicuries of technetium 99m Cardiolite and subsequently rest SPECT Cardiolite nuclear imaging was obtained in the horizontal long, vertical long, and short axis views. The patient underwent pharmacologic (Regadenoson) evaluation. The patient was injected with 33.8 millicuries of technetium 99m Cardiolite and subsequently stress SPECT Cardiolite nuclear imaging was obtained in the horizontal long, vertical long, and short axis views. A gated Cardiolite study at peak stress was obtained. The examination was stopped secondary to completion of protocol. Rest and stress SPECT Cardiolite nuclear imaging status post realignment, normalization, and attenuation correction demonstrate no fixed or reversible perfusion defects. There is end systolic thickening and brightening. The gatedCardiolite study demonstrates myocardial thickening and inward wall motion. Thereported LVEF is 57%. Impression: 1. Pharmacologic (Regadenoson) evaluation 2. Peak pharmacologic ECG with no diagnostic ischemic changes. 3. PVCs noted pretest, during infusion and in recovery. 5. Rest and stress SPECT Cardiolite nuclear imaging demonstrate relative uniform tracer uptake and myocardial perfusion appearing within normal limits. 6. The gated Cardiolite study reports an LVEF of 57%. This note was generated with [employer] software. It may contain incorrectwords, spelling, and punctuation that were not noted in checking the note beforesigning. 07/24/24 1241 Date _ David Fox MD CC: Dr. David Fox MD; Dr. Prince Celeste MD ~ Date Dictated: 07/24/24 1240 Date Transcribed: 07/24/24 124 Nurse College: DEBBIE Mendoza [facility] Work Phone: Stress Reporton 07-24-2024 Stress Report [facility] [address] [place] [address] MR#: [id number] Acct: [id number] Name: SEDA MENCHACA Rep #: [id number] : 1945 78 From: David Fox MD Primary Care: Dr. Prince Celeste MD Status: REG CLI Referring Dr: David Fox MD Sex: M C Stress Test Report Date: 07/23/2024 Procedure: Pharmacologic stress nuclear imaging study Indications: Coronary artery disease Consent: Per the patient Procedure: The patient underwent pharmacologic (Regadenoson 0.4mg ) evaluation with a peak heart rate of 90 beats per minute (63%predicted maximal heart rate) and a peak blood pressure of 118/68 mmHg. The baseline ECG demonstrated sinus rhythm. The peak pharmacologic ECG no ischemic changes. PVCs noted pretest, during pharmacologic infusion and in recovery. There was no complaint of chest discomfort during pharmacologic infusion or recovery. The patient was injected with 11.7 millicuries of technetium 99m Cardiolite and subsequently rest SPECT Cardiolite nuclear imaging was obtained in the horizontal long, vertical long, and short axis views. The patient underwent pharmacologic (Regadenoson) evaluation. The patient was injected with 33.8 millicuries of technetium 99m Cardiolite and subsequently stress SPECT Cardiolite nuclear imaging was obtained in the horizontal long, vertical long, and short axis views. A gated Cardiolite study at peak stress was obtained. The examination was stopped secondary to completion of protocol. Rest and stress SPECT Cardiolite nuclear imaging status post realignment, normalization, and attenuation correction demonstrate no fixed or reversible perfusion defects. There is end systolic thickening and brightening. The gated Cardiolite study demonstrates myocardial thickening and inward wall motion. The reported LVEF is 57%. Impression: 1. Pharmacologic (Regadenoson) evaluation 2. Peak pharmacologic ECG with no diagnostic ischemic changes. 3. PVCs noted pretest, during infusion and in recovery. 5. Rest and stress SPECT Cardiolite nuclear imaging demonstrate relative uniform tracer uptake and myocardial perfusion appearing within normal limits. 6. The gated Cardiolite study reports an LVEF of 57%. This note was generated with [employer] software. It may contain incorrect words, spelling, and punctuation that were not noted in checking the note before signing. 07/24/24 1241 Date David Fox MD CC: Dr. David Fox MD; Dr. Prince Celeste MD Date Dictated: 07/24/24 1240 Date Transcribed: 07/24/24 124 Nurse College: DEBBIE Signed Normal [facility] Cardiology Visit Reporton Cardiology Visit Report [facility] [address] [place] [address] OFFICE VISIT Date of Service: 07/07/24 MR#: [id number] Acct: [id number] Name: SEDA MENCHACA Rep #: [id number] : 1945 Provider: Dr. David Fox MD Age/Sex: 78/M Location: [facility] [place] Status: Signed HPI HPI History of Present Illness Details: This gentleman has past medical history significant for coronary artery disease status post CABG with ESCOBAR to the LAD, SVG sequentially to the first and second diagonal of the anterior descending and SVG to the circumflex and an SVG to RCA. Also history of moderate aortic and mitral valve regurgitation. Denies any chest pains either at rest or with exertion. Shortness of breath with strenuous exertion only. Denies orthopnea or PND. No ankle edema. No palpitations. Intake Vital Signs 01/01/24 08:53 07/07/24 08:17 Height 5 ft 5 in 5 ft 5 in Weight: 135 lb BMI 22.4 BP 113/73 Blood Pressure Location Lt brachial Position Sitting Respiration 18 Pulse 64 Pulse Source NIBP Intake Visit Reasons: 6 M FU Knot Tier Required: No Accompanied by: Self Is patient in pain?: No Allergies Penicillins Allergy (Verified 07/07/24 14:33) Unknown Medications ???Medication ???Instructions ???Recorded ???Confirmed ???Type nitroglycerin 0.4 mg sublingual 0.4 mg sublingual Q5M PRN Chest 06/27/24 History tablet Pain tamsulosin 0.4 mg capsule 0.4 mg PO DAILY urine flow 5 06/27/24 History sildenafil 100 mg tablet (Viagra) 100 mg PO DAILY PRN sexual activi ty 03/12/19 06/27/24 History metformin 500 mg tablet 1,000 mg PO DAILY diabetes 1 06/27/24 History acetaminophen 500 mg tablet 500 mg PO Q6H PRN pain, fever 09/2106/27/24 History (Tylenol Extra Strength) cetirizine 10 mg tablet 10 mg PO DAILY sinus 10/05/21 03/11/14 History glipizide 2.5 mg tablet, extended 2.5 mg PO DAILY diabetes 06/07/23 06/27/24 History release 24 hr gabapentin 100 mg capsule 200 mg PO QHS shingle pain at 06/2206/27/24 History night time multivitamin with minerals-folic 1 tab PO DAILY suppliment 07/17/23 06/27/24 History acid 80 mcg chewable tablet (Centrum Adult 50 Plus) rgljshqf-zkkawlevz-yft ameth 3.5 1 drp LEFT EYE 4X/DAY shingles 06/27/24 History mg/mL-10,000 unit/mL-0.1% eye drops valacyclovir 1 gram tablet 1,000 mg PO TID 4 days #12 tabs 06/27/24 Rx (Valtrex) aspirin 81 mg tablet,delayed 81 mg PO QDAY #90 tabs 01/01/24 Rx release (Adult Low Dose Aspirin) amlodipine 10 mg tablet 10 mg PO QDAY blood prerssure #90 02/18/24 06/27/24 Rx tabs metoprolol tartrate 50 mg tablet 50 mg PO BID heart #180 tabs 02/1706/27/24 Rx atorvastatin 40 mg tablet 40 mg PO QHS 07/07/24 07/07/24 His tory duloxetine 20 mg capsule,delayed 20 mg PO BID 07/07/24 07/07/24 His tory release trazodone 100 mg tablet 100 mg PO QHS 07/07/24 07/07/24 Hi story Ejection fraction %: 60 Have you fallen in the past year?: No PFSH Medical History Abnormal result of cardiovascular function study Abnormal stress test Atherosclerotic heart disease of [place] coronary artery without angina pectoris Chest pain, precordial Diabetes mellitus type 2 with peripheral artery disease Dizziness Dyspnea, unspecified Edema Essential hypertension Family history of completed stroke Family history of ischemic heart disease and other diseases of the circulatory system Fatigue Fatigue Herpes zoster Hypertension Long-term use of high-risk medication Old myocardial infarction Pure hypercholesterolemia Surgical History Aortocoronary bypass status ( 06/30/08) History of carpal tunnel surgery Family History Mother CVA (cerebral vascular accident) Brother CAD (coronary artery disease) Social History Smoking Status: Former smoker alcohol intake: never ROS Const Const: Negative for fatigue, weakness, headache(s) or weight gain ENT ENT: Negative for headache(s), dizziness, Nosebleed/epistaxis or balance problems Cardio Chest Pain: No Palpitations: No Edema: None Muscle aches with walking: None Resp Respiratory: Negative for SOB with activity, SOB at rest or SOB orthopnea SOB lying down GI GI: Negative nausea, vomiting or heartburn Musc Musc: Negative for muscle aches/ myalgia, muscle weakness, joint pain or balance problems Neuro Neuro: Negative for dizziness, lightheadedness, near syncope, syncope, headache(s) or weakness Endo Endo: Negative for fatigue Cardiology Exam Const (more content not included)... [facility] Office Visit (PODIWS ) SEDA MENCHACA ([id number]) 1945 M Date Time Provider Department 06/23/24 1:15 PM EMILIE TANG During your visit today, we recorded the following information about you: Philomena Ortega RN 06/23/2024 9:16 PM Signed Patient presents with: Left Foot - Established Patient, Follow Up, Diabetic Foot Check Right Foot - Established Patient, Follow Up, Diabetic Foot Check Patient presents for follow up diabetic foot check. States that in the last 6 months or so he has dropped things on both big toes and the toenails are still discolored. JOO 06/21/23 Emilie Tang 06/23/2024 9:16 PM Signed Subjective: This 78 year old male presents to clinic for diabetic foot check. Patient has the following complaints: discolored hallux toenail States that over the past 6 months, he may have dropped something on the toe while working in the garage. The nails are discolored but appear to be improving. Denies any pain. Patient admits to being diabetic for 15-20 years now. Patient +B/T/N in feet at this time. Patient -pain in legs when walking. No other pedal complaints at this time. No change in medications or medical history since last visit. PAIN EVALUATION No data found in the last 1 encounters. 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 Singh. CORONARY ATHEROSCLER UNSPEC VESSEL 07/08/2008 Dr. Markham, [facility]. 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 Terrazas, [facility]. Type II or unspecified type diabetes mellitus without mention of complication, not stated as uncontrolled 12/06/2004 Unspecified essential hypertension 12/06/2004 Current Outpatient Medications Medication Sig tamsulosin (FLOMAX) 0.4 mg Take 0.4 mg by mouth once daily. glipiZIDE (GLUCOTROL XL) 2.5 mg 24 hr tablet Take 1 tablet by mouth once daily. gabapentin (NEURONTIN) 300 mg capsule Take 1 capsule by mouth daily at bedtime for 180 days. atorvastatin (LIPITOR) 20 mg tablet Take 20 mg by mouth once daily. [facility] 06/23/24 - 40mg per patient's medication card traZODone (DESYREL) 100 mg tablet Take 1 tablet by mouth daily at bedtime. sildenafil (VIAGRA) 100 mg tablet Take 1 tablet by mouth once daily as needed (for ED.). DULoxetine (CYMBALTA) 20 mg capsule Take 1 capsule by mouth once daily. DDVILMOJ-YFZAGKWXW-RGS AMETH 3.5 MG/ML-10,000 UNIT/ML-0.1% EYE DROPS metFORMIN (GLUCOPHAGE) 1,000 mg tablet Take 1 tablet by mouth daily with breakfast. olopatadine (PATANOL) 0.1 % ophthalmic solution Use 1 Drop in both eyes two times a day as needed (allergies). fexofenadine (SOWMYA ALLERGY) 180 mg tablet Take 1 tablet by mouth once daily. (Patient taking differently: Take 180 mg by mouth once daily. Unsure the name but takes OTC allergy relief medications PRN) blood sugar diagnostic (IkonopediaTOUCH ULTRA TEST) test strip Test blood sugar(s) 1 times daily. Dx:E11.9 Insulin: no amLODIPine (NORVASC) 10 mg tablet Take 1 tablet by mouth once daily. [facility] (Patient taking differently: Take 10 mg by mouth once daily. [facility] 06/23/24 - 20mg per patients med card) acetaminophen (TYLENOL) 500 mg tablet Take 500 mg by mouth every 8 hours as needed. Omeprazole Magnesium (PRILOSEC OTC) 20 mg tablet Take 1 tablet by mouth daily before breakfast. 1/2 hr before meal. nitroglycerin sublingual (NITROQUICK) 0.4 mg SL tablet Dissolve 0.4 mg under the tongue every 5 minutes as needed. metoprolol tartrate, short acting, (LOPRESSOR) 50 mg tablet Take 1 tablet by mouth twice daily. THERAPEUTIC MULTIVITAMIN TAB Take one(1) tablet daily. diclofenac sodium (VOLTAREN) 1 % topical gel Apply 2 g to affected area three times daily as needed (wrist pain). (Patient not taking: Reported on 06/23/2024) No current facility-administered medications for this visit. ALLERGIES Allergen Reactions Keflex [Cephalexin] Rash Rash and itching.Pt told by (more content not included)... Normal [facility] Blood urea nitrogen (BUN)/cr eatinine ratioOrdered By: Alayna Diamond on 05-15-2024 Urea nitrogen/Creatinine [Mass ratio] 12.2 mg/mg 10-20 [facility] CBC-Complete Blood Cnt No Di ffon 05-15-2024 Erythrocyte distribution width (RBC) [Ratio] 13.2 % Normal 11.6-14.6 [facility] Comment on above: Performed By: #### L 502.0250, L500.3600, L100.0500 #### [facility] [address] [place], [address] Hematocrit (Bld) [Volume fraction] 39.2 % Low 40-54 [facility] Comment on above: Performed By: #### L 502.0250, L500.3600, L100.0500 #### [facility] [address] [place], [address] Hemoglobin (Bld) [Mass/Vol] 12.9 g/dL Low 13.0-16.5 [facility] Comment on above: Performed By: #### L 502.0250, L500.3600, L100.0500 #### [facility] [address] [place], [address] MCH (RBC) [Entitic mass] 30.9 pg Normal 27.0-32.0 [facility] Comment on above: Performed By: #### L 502.0250, L500.3600, L100.0500 #### [facility] [address] [place], [address] MCHC (RBC) [Mass/Vol] 32.9 g/dL Normal 32-36 [place] Comment on above: Performed By: #### L 502.0250, L500.3600, L100.0500 #### [facility] [address] [place], [address] MCV (RBC) [Entitic vol] 93.8 fL Normal 80-94 [facility] Comment on above: Performed By: #### L 502.0250, L500.3600, L100.0500 #### [facility] [address] [place], [address] Platelet mean volume (Bld) [Entitic vol] 10.3 fL Normal 6.2-12.0 [facility] Comment on above: Performed By: #### L 502.0250, L500.3600, L100.0500 #### [facility] [address] [place], [address] Platelets (Bld) [#/Vol] 238 10*3/uL Normal 150-450 [facility] Comment on above: Performed By: #### L 502.0250, L500.3600, L100.0500 #### [facility] [address] [place], [address] RBC (Bld) [#/Vol] 4.18 10*6/uL Low 4.6-6.2 [facility] Comment on above: Performed By: #### L 502.0250, L500.3600, L100.0500 #### [facility] [address] [place], [address] RDW SD 45.1 fl High 35.1-43.9 [facility] Comment on above: Performed By: #### L 502.0250, L500.3600, L100.0500 #### [facility] [address] [place], [address] WBC (Bld) [#/Vol] 7.1 10*3/uL Normal 4.4-11.0 [facility] Comment on above: Performed By: #### L 502.0250, L500.3600, L100.0500 #### [facility] [place], [address] Carbon dioxide measurementOr dered By: Alayna Diamond on 05-15-2024 CO2 [Moles/Vol] 28.0 mmol/L 21.0-32.0 [facility] Chloride measurementOrdered By: Alayna Diamond on 05-15-2024 Chloride [Moles/Vol] 100 mmol/L 98-107 [facility] Erythrocyte distribution wid th (RBC) [Ratio]Ordered By: Alayna Diamond on 05-15-2024 Erythrocyte distribution width (RBC) [Entitic vol] 45.1 fL High 35.1-43.9 [facility] Erythrocyte distribution wid th ratioOrdered By: Alayna Diamond on 05-15-2024 Erythrocyte distribution width (RBC) [Ratio] 13.2 % 11.6-14.6 [facility] Estimated glomerular filtrat ion rate (GFR) AmericanOrdered By: Alayna Diamond on 05-15-2024 Estimated GFR (MDRD) Amer 47 mL/min Low >60 [facility] Comment on above: GFR Calc Glomerular filtration rate ( GFR) estimationOrdered By: Alayna Diamond on 05-15-2024 Estimated GFR (MDRD) Non-Af Amer 39 mL/min Low >60 [facility] Comment on above: Non- GFR Calc Glucose measurementOrdered B y: Alayna Diamond on 05-15-2024 Glucose [Mass/Vol] 157 mg/dL High 74-106 [facility] Comment on above: Fasting Glucose resu lt greater than or equal to 126 mg/dL suggests DIABETES MELLITUS per A.D.A. criteria. Hematocrit Auto (Bld) [Volum e fraction]Ordered By: Alayna Diamond on 05-15-2024 Hematocrit (Bld) [Volume fraction] 39.2 % Low 40-54 [facility] Hemoglobin measurementOrdere d By: Alayna Diamond on 05-15-2024 Hemoglobin (Bld) [Mass/Vol] 12.9 g/dL Low 13.0-16.5 [facility] MCV (mean corpuscular volume ) determinationOrdered By: Alayna Diamond on 05-15-2024 MCV (RBC) [Entitic vol] 93.8 fL 80-94 [facility] Mean corpuscular hemoglobin (MCH) determinationOrdered By: Alayna Diamond on 05-15-2024 MCH (RBC) [Entitic mass] 30.9 pg 27.0-32.0 [facility] Mean corpuscular hemoglobin concentration (MCHC) determinationOrdered By: Alayna Diamond on 05-15-2024 MCHC (RBC) [Mass/Vol] 32.9 g/dL 32-36 [place] Mean platelet volume determi nationOrdered By: Alayna Diamond on 05-15-2024 Platelet mean volume (Bld) [Entitic vol] 10.3 fL 6.2-12.0 [facility] Microalb:Creat Ratio,Random URon 05-15-2024 Creatinine [Mass/Vol] 262.00 mg/dL Normal NO RAN GE EST. [facility] Comment on above: Performed By: #### L 502.0250, L500.3600, L100.0500 #### [facility] [address] [place], [address] MALB:CRE 50.8 mg/g CRE High <30 mg/g CRE [facility] Comment on above: Performed By: #### L 502.0250, L500.3600, L100.0500 #### [facility] [address] [place], [address] MICROALBUMIN,UR 133.0 mg/L Normal NO RANGE EST. [facility] Comment on above: Performed By: #### L 502.0250, L500.3600, L100.0500 #### [facility] [address] [place], [address] Phosphorus measurementOrdere d By: Alayna Diamond on 05-15-2024 Phosphorus Level 2.7 mg/dL 2.5-4.9 [facility] Platelet countOrdered By: Jacqueline Dimaond on 05-15-2024 Platelets (Bld) [#/Vol] 238 10*3/uL 150-450 [facility] Potassium measurementOrdered By: Alayna Diamond on 05-15-2024 Potassium [Moles/Vol] 4.7 mmol/L 3.5-5.1 [place] Comment on above: Moderate Hemolysis, Result may be falsely increased. RBC Auto (Bld) [#/Vol]Ordere d By: Alayna Diamond on 05-15-2024 RBC (Bld) [#/Vol] 4.18 10*6/uL Low 4.6-6.2 [facility] Random urine microalbumin me asurementOrdered By: Alayna Diamond on 05-15-2024 Urine Random Microalbumin 133.0 mg/L NO RANGE EST. [facility] Renal Profileon 05-15-2024 Albumin [Mass/Vol] 3.5 g/dL Normal 3.2-5.0 [facility] Comment on above: Performed By: #### L 502.0250, L500.3600, L100.0500 #### [facility] [address] [place], [address] BUN/CRE 12.2 RATIO Normal 10-20 [facility] Comment on above: Performed By: #### L 502.0250, L500.3600, L100.0500 #### [facility] [address] [place], [address] CA,Total 9.8 mg/dL Normal 8.5-10.1 [facility] Comment on above: Performed By: #### L 502.0250, L500.3600, L100.0500 #### [facility] [address] [place], [address] Chloride [Moles/Vol] 100 mmol/L Normal 98-107 [facility] Comment on above: Performed By: #### L 502.0250, L500.3600, L100.0500 #### [facility] [address] [place], [address] CO2 [Moles/Vol] 28.0 mmol/L Normal 21.0-32.0 [facility] Comment on above: Performed By: #### L 502.0250, L500.3600, L100.0500 #### [facility] [address] [place], [address] Creatinine [Mass/Vol] 1.80 mg/dL High 0.70-1.30 [place] Comment on above: Result Comment: The validity of the calculated GFR GFRAA in patients over 70 years has not been determined. Clinical correlation is essential. Performed By: #### L 502.0250, L500.3600, L100.0500 #### [facility] [address] [place], [address] EST GFR - AA 47 mL/min Low >60 [facility] Comment on above: Result Comment: Afri can Japanese GFR Calc Performed By: #### L 502.0250, L500.3600, L100.0500 #### [facility] [address] [place], [address] GFR/1.73 sq M.predicted among non-blacks MDRD (S/P/Bld) [Vol rate/Area] 39 mL/min/{1.73_m2} Low >60 [facility] Comment on above: Result Comment: Non- GFR Calc Performed By: #### L 502.0250, L500.3600, L100.0500 #### [facility] [address] [place], [address] Glucose [Mass/Vol] 157 mg/dL High 74-106 [facility] Comment on above: Result Comment: Fast ing Glucose result greater than or equal to 126 mg/dL suggests DIABETES MELLITUS per A.D.A. criteria. Performed By: #### L 502.0250, L500.3600, L100.0500 #### [facility] [address] [place], [address] Phosphate [Mass/Vol] 2.7 mg/dL Normal 2.5-4.9 [facility] Comment on above: Performed By: #### L 502.0250, L500.3600, L100.0500 #### [facility] [address] [place], [address] Potassium [Moles/Vol] 4.7 mmol/L Normal 3.5-5.1 [place] Comment on above: Result Comment: Mode rate Hemolysis, Result may be falsely increased. Performed By: #### L 502.0250, L500.3600, L100.0500 #### [facility] [address] [place], [address] Sodium [Moles/Vol] 135 mmol/L Low 136-145 [facility] Comment on above: Performed By: #### L 502.0250, L500.3600, L100.0500 #### [facility] [address] [place], [address] Urea nitrogen [Mass/Vol] 22 mg/dL High 7-18 [facility] Comment on above: Performed By: #### L 502.0250, L500.3600, L100.0500 #### [facility] [address] [place], [address] Serum or plasma albumin marion urement (mass/volume)Ordered By: Alayna Diamond on 05-15-2024 Albumin [Mass/Vol] 3.5 g/dL 3.2-5.0 [facility] Serum or plasma calcium marion urement (mass/volume)Ordered By: Alayna Diamond on 05-15-2024 Calcium [Mass/Vol] 9.8 mg/dL 8.5-10.1 [facility] Serum or plasma creatinine m easurement (mass/volume)Ordered By: Alayna Diamond on 05-15-2024 Creatinine [Mass/Vol] 1.80 mg/dL High 0.70-1.30 [place] Comment on above: The validity of the calculated GFR & GFRAA in patients over 70 years has not been determined. Clinical correlation is essential. Serum or plasma urea nitroge n measurement (mass/volume)Ordered By: Alayna Diamond on 05-15-2024 Urea nitrogen [Mass/Vol] 22 mg/dL High 7-18 [facility] Sodium levelOrdered By: Yovanny Diamond on 05-15-2024 Sodium [Moles/Vol] 135 mmol/L Low 136-145 [facility] Urine albumin/creatinine rat io for detection of microalbuminuriaOrdered By: Alayna Diamond on 05-15-2024 Urine Microalbumin/Creatinine Ratio 50.8 mg/g CRE High <30 [facility] Urine creatinine measurement (mass/volume)Ordered By: Alayna Diamond on 05-15-2024 Creatinine (U) [Mass/Vol] 262.00 mg/dL NO RANGE EST. [facility] White blood cell (WBC) count Ordered By: Alayna Diamond on 05-15-2024 WBC (Bld) [#/Vol] 7.1 10*3/uL 4.4-11.0 [facility] CNPNon 05-13-2024 CNPN Telephone (INTMWS) SEDA MENCHACA ([id number]) 1945 M Date Time Provider Department 05/13/24 PRINCE CELESTE INTWS During your visit today, we recorded the following information about you: Gisselle Craven LPN 05/13/2024 1:32 PM Signed ----- Message from Prince Celeste MD sent at 05/13/2024 12:43 PM EST ----- 1) diabetes worse. A1C 7.4. Start glipizide ER 2.5 mg daily before breakfast. He has taken this before. Continue metformin, same dose. 2) Chronic kidney disease is overall stable. Urine negative for protein. Gisselle Craven LPN 05/13/2024 1:33 PM Signed Duplicate. Allergies As of Date: 05/13/2024 Noted Allergy Reaction KEFLEX (CEPHALEXIN) 08/09/2007 2 - Rash Comments: Rash and itching.Pt told by to discontinue Keflex immediately. OFLOXACIN 12/12/2013 4 - Hives Comments: ofloxacin ear drops PENICILLINS 12/06/2004 2 - Rash Date Reviewed: 05/12/2024 Reviewed by: Gisselle Craven LPN - Fully Assessed Reason for Visit: Results [95] Prescriptions as of 05/13/2024 - glipiZIDE (GLUCOTROL XL) 2.5 mg 24 hr tablet Take 1 tablet by mouth once daily. - gabapentin (NEURONTIN) 300 mg capsule Take 1 capsule by mouth daily at bedtime for 180 days. - atorvastatin (LIPITOR) 20 mg tablet Take 1 tablet by mouth once daily. [facility] - traZODone (DESYREL) 100 mg tablet Take 1 tablet by mouth daily at bedtime. - sildenafil (VIAGRA) 100 mg tablet Take 1 tablet by mouth once daily as needed (for ED.). - DULoxetine (CYMBALTA) 20 mg capsule Take 1 capsule by mouth once daily. - QCBKJHTT-BFRUOTROL-YIM AMETH 3.5 MG/ML-10,000 UNIT/ML-0.1% EYE DROPS - metFORMIN (GLUCOPHAGE) 1,000 mg tablet Take 1 tablet by mouth daily with breakfast. - olopatadine (PATANOL) 0.1 % ophthalmic solution Use 1 Drop in both eyes two times a day as needed (allergies). - fexofenadine (SOWMYA ALLERGY) 180 mg tablet Take 1 tablet by mouth once daily. - blood sugar diagnostic ([place] ULTRA TEST) test strip Test blood sugar(s) 1 times daily. Dx:E11.9 Insulin: no - amLODIPine (NORVASC) 10 mg tablet Take 1 tablet by mouth once daily. [facility] - acetaminophen (TYLENOL) 500 mg tablet Take 500 mg by mouth every 8 hours as needed. - diclofenac sodium (VOLTAREN) 1 % topical gel Apply 2 g to affected area three times daily as needed (wrist pain). - Omeprazole Magnesium (PRILOSEC OTC) 20 mg tablet Take 1 tablet by mouth daily before breakfast. 1/2 hr before meal. - nitroglycerin sublingual (NITROQUICK) 0.4 mg SL tablet Dissolve 0.4 mg under the tongue every 5 minutes as needed. - metoprolol tartrate, short acting, (LOPRESSOR) 50 mg tablet Take 1 tablet by mouth twice daily. - THERAPEUTIC MULTIVITAMIN TAB Take one(1) tablet daily. 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] 08/29/2007 03/13/2014 Disorders of bursae and tendons in shoulder reg*05/26/2008 03/06/2013 IMPOTENCE, ORGANIC ORIGN [N52.9] 05/26/2008 Coronary atherosclerosis [I25.10] 07/08/2008 Overweight(278.02) [E66.3] 07/15/2008 03/13/2014 Anemia, unspecified [D64.9] 07/20/2008 03/06/2013 GERD (gastroesophageal reflux disease) [K21.9] 02/17/2009 Bladder Cancer [C67.9] 05/20/2009 Osteoarthritis [M19.90] 05/20/2009 Dysuria [R30.0] 09/04/2012 03/06/2013 Right inguinal hernia [K40.90] 12/25/2012 03/06/2013 Lumbago with sciatica, unspecified side [M54.40]03/16/2015 CKD (chronic kidney disease) stage 3, GFR 30-59*06/28/2015 11/07/2021 Acute bilateral low back pain without sciatica *12/01/2015 12/12/2016 Cervicalgia of xovrlieu-pugacsl-ynnei region [M*06/13/2018 Squamous cell cancer of scalp and skin of neck *06/12/2019 Arthritis of hand [M19.049] 01/21/2020 Hypertensive kidney disease with stage 3 chroni*11/03/2021 Insomnia [G47.00] 11/08/2022 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 A1C 7.4. Start glipizide ER 2.5 mg daily before breakfast. He has taken this before. Continue metformin, same dose. 2) Chronic kidney disease is overall stable. Urine negative for protein. Gisselle Craven LPN 05/13/2024 1:06 PM Signed Left message for Patient to call AND ask to speak to a nurse. Barron Roy LPN, EVELINA 05/13/2024 1:30 PM Signed Pt returned call and given provider's message below with verbalized understanding. Pt agreeable. Allergies As of Date: 05/13/2024 Noted Allergy Reaction KEFLEX (CEPHALEXIN) 08/09/2007 2 - Rash Comments: Rash and itching.Pt told by to discontinue Keflex immediately. OFLOXACIN 12/12/2013 4 - Hives Comments: ofloxacin ear drops PENICILLINS 12/06/2004 2 - Rash Date Reviewed: 05/12/2024 Reviewed by: Gisselle Craven LPN - Fully Assessed Reason for Visit: Results [95] Prescriptions as of 05/13/2024 - glipiZIDE (GLUCOTROL XL) 2.5 mg 24 hr tablet Take 1 tablet by mouth once daily. - gabapentin (NEURONTIN) 300 mg capsule Take 1 capsule by mouth daily at bedtime for 180 days. - atorvastatin (LIPITOR) 20 mg tablet Take 1 tablet by mouth once daily. [facility]. - traZODone (DESYREL) 100 mg tablet Take 1 tablet by mouth daily at bedtime. - sildenafil (VIAGRA) 100 mg tablet Take 1 tablet by mouth once daily as needed (for ED.). - DULoxetine (CYMBALTA) 20 mg capsule Take 1 capsule by mouth once daily. - TZXAYUES-VBIQXXLGA-VCX AMETH 3.5 MG/ML-10,000 UNIT/ML-0.1% EYE DROPS - metFORMIN (GLUCOPHAGE) 1,000 mg tablet Take 1 tablet by mouth daily with breakfast. - olopatadine (PATANOL) 0.1 % ophthalmic solution Use 1 Drop in both eyes two times a day as needed (allergies). - fexofenadine (SOWMYA ALLERGY) 180 mg tablet Take 1 tablet by mouth once daily. - blood sugar diagnostic (Twylah ULTRA TEST) test strip Test blood sugar(s) 1 times daily. Dx:E11.9 Insulin: no - amLODIPine (NORVASC) 10 mg tablet Take 1 tablet by mouth once daily. [facility] - acetaminophen (TYLENOL) 500 mg tablet Take 500 mg by mouth every 8 hours as needed. - diclofenac sodium (VOLTAREN) 1 % topical gel Apply 2 g to affected area three times daily as needed (wrist pain). - Omeprazole Magnesium (PRILOSEC OTC) 20 mg tablet Take 1 tablet by mouth daily before breakfast. 1/2 hr before meal. - nitroglycerin sublingual (NITROQUICK) 0.4 mg SL tablet Dissolve 0.4 mg under the tongue every 5 minutes as needed. - metoprolol tartrate, short acting, (LOPRESSOR) 50 mg tablet Take 1 tablet by mouth twice daily. - THERAPEUTIC MULTIVITAMIN TAB Take one(1) tablet daily. 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] 08/29/2007 03/13/2014 Disorders of bursae and tendons in shoulder reg*05/26/2008 03/06/2013 IMPOTENCE, ORGANIC ORIGN [N52.9] 05/26/2008 Coronary atherosclerosis [I25.10] 07/08/2008 Overweight(278.02) [E66.3] 07/15/2008 03/13/2014 Anemia, unspecified [D64.9] 07/20/2008 03/06/2013 GERD (gastroesophageal reflux disease) [K21.9] 02/17/2009 Bladder Cancer [C67.9] 05/20/2009 Osteoarthritis [M19.90] 05/20/2009 Dysuria [R30.0] 09/04/2012 03/06/2013 Right inguinal hernia [K40.90] 12/25/2012 03/06/2013 Lumbago with sciatica, unspecified side [M54.40]03/16/2015 CKD (chronic kidney disease) stage 3, GFR 30-59*06/28/2015 11/07/2021 Acute bilateral low back pain without sciatica *12/01/2015 12/12/2016 Cervicalgia of rxfunhmd-gjamkwv-luwqw region [M*06/13/2018 Squamous cell cancer of scalp and skin of neck *06/12/2019 Arthritis of hand [M19.049] 01/21/2020 Hypertensive kidney disease with stage 3 chroni*11/03/2021 Insomnia [G47.00] 11/08/2022 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 ALBUMIN/CREATININE RATIO, UR INEon 05-12-2024 Albumin DL <= 20 mg/L (U) [Mass/Vol] 20.0 mg/L Normal [facility] Comment on above: Order Comment: Speci men Type: URINE SPECIMENOrdering Facility: [facility] Address: [address] [place] [address] Performed By: #### U ACR ####[facility] LABCLIA [id number] [facility] [id number] [address] [place] Albumin/Creatinine (U) [Mass ratio] 18 mg/g Normal <30 [facility] Comment on above: Order Comment: Speci men Type: URINE SPECIMENOrdering Facility: [facility] Address: [address] [place] [address] Result Comment: Adul t Male and Female Nephrotic Criteria: <30 mg/g is considered normal to mildly increased 30-300 mg/g is considered moderately increased >300 mg/g is considered severely increased KDIGO. (2013). KDIGO 2012 Clinical Practice Guideline for the Evaluation and Management of Chronic Kidney Disease. Official Journal of the International Society of Nephrology, 3(1), 1-150. Performed By: #### U ACR ####[facility] LABCLIA [id number] [place] [address] [place] Creatinine (U) [Mass/Vol] 110.2 mg/dL Normal 20.0-300. 0 [facility] Comment on above: Order Comment: Speci men Type: URINE SPECIMENOrdering Facility: [facility] Address: [address] [place] [address] Performed By: #### U ACR ####[facility] LABCLIA [id number] [place] [address] [place] Basic metabolic 2000 panelon 05-12-2024 Anion gap [Moles/Vol] 13 mmol/L Normal 8-15 [facility] Comment on above: Order Comment: Speci men Type: BLOOD SPECIMENOrdering Facility: [facility] Address: [address] [place] [address] Performed By: #### 2 4321-2 ####[facility] LABCLIA [id number] [address] [address] [place] Calcium [Mass/Vol] 9.9 mg/dL Normal 8.5-10.2 [facility] Comment on above: Order Comment: Speci men Type: BLOOD SPECIMENOrdering Facility: [facility] Address: [address] [place], [place] [address] Performed By: #### 2 4321-2 ####[facility] LABCLIA [id number] [place] [address] [place] Chloride [Moles/Vol] 98 mmol/L Normal 98-107 [facility] Comment on above: Order Comment: Speci men Type: BLOOD SPECIMENOrdering Facility: [facility] Address: [address] [place] [address] Performed By: #### 2 4321-2 ####[facility] LABCLIA [id number] [place] [address] [place] CO2 [Moles/Vol] 28 mmol/L Normal 22-30 [facility] Comment on above: Order Comment: Speci men Type: BLOOD SPECIMENOrdering Facility: [facility] Address: [address] [place] [address] Performed By: #### 2 4321-2 ####[facility] LABCLIA [id number] [place] [address] [place] Creatinine [Mass/Vol] 1.73 mg/dL High 0.73-1.22 [facility] Comment on above: Order Comment: Speci men Type: BLOOD SPECIMENOrdering Facility: [facility] Address: [address] [place] [address] Performed By: #### 2 4321-2 ####[facility] LABCLIA [id number] [place] [address] [place] Creatinine and Glomerular filtration rate.predicted panel (S/P/Bld) 40 mL/min/1.73m??? Low >=60 [facility] Comment on above: Order Comment: Speci men Type: BLOOD SPECIMENOrdering Facility: [facility] Address: [address] [place] [address] Result Comment: Kimberly mated Glomerular Filtration Rate (eGFR) is calculated using the 2020 CKD-EPI creatinine equation. This equation utilizes serum creatinine, sex, and age as parameters. The creatinine assay has traceable calibration to isotope dilution-mass spectrometry. Refer to KDIGO guidelines for clinical interpretation. In patients with unstable renal function, e.g. those with acute kidney injury, the eGFR may not accurately reflect actual GFR. Performed By: #### 2 4321-2 ####[facility] LABIA [id number] [place] [address] [place] Glucose [Mass/Vol] 180 mg/dL High 74-99 [facility] Comment on above: Order Comment: Speci men Type: BLOOD SPECIMENOrdering Facility: [facility] Address: [address] [place] [address] Result Comment: The [place] Diabetes Association (ADA) provides guidance for cutoff values for fasting glucose and random glucose. The ADA defines fasting as no caloric intake for at least 8 hours. Fasting plasma glucose results between 100 to 125 mg/dL indicate increased risk for diabetes (prediabetes). Fasting plasma glucose results greater than or equal to 126 mg/dL meet the criteria for diagnosis of diabetes. In the absence of unequivocal hyperglycemia, results should be confirmed by repeat testing. In a patient with classic symptoms of hyperglycemia or hyperglycemic crisis, random plasma glucose results greater than or equal to 200 mg/dL meet the criteria for diagnosis of diabetes. Reference: Standards of Medical Care in Diabetes 2016, [place] Diabetes Association. Diabetes Care. 2016.39(Suppl 1). Performed By: #### 2 4321-2 ####[facility] LABIA [id number] [place] [address] [place] Potassium [Moles/Vol] 4.2 mmol/L Normal 3.7-5.1 [facility] Comment on above: Order Comment: Speci men Type: BLOOD SPECIMENOrdering Facility: [facility] Address: [address] [place] [address] Performed By: #### 2 4321-2 ####[facility] LABIA [id number] [place] [address] [place] Sodium [Moles/Vol] 139 mmol/L Normal 136-144 [facility] Comment on above: Order Comment: Speci men Type: BLOOD SPECIMENOrdering Facility: [facility] Address: [address] [place] [address] Performed By: #### 2 4321-2 ####[facility] LABCLIA [id number] [place] [address] [place] Urea nitrogen [Mass/Vol] 21 mg/dL Normal 9-24 [facility] Comment on above: Order Comment: Speci men Type: BLOOD SPECIMENOrdering Facility: [facility] Address: [address] [place] [address] Performed By: #### 2 4321-2 ####[facility] LABCLIA [id number] [place] [address] [place] CBC panel Auto (Bld)on 05-12 Erythrocyte distribution width (RBC) [Ratio] 12.9 % Normal 11.5-15.0 [facility] Comment on above: Order Comment: Speci men Type: BLOOD SPECIMEN [facility]ing [facility] Address: [address] [place] [address] Performed By: #### 5 8410-2 #### [facility] CLIA [id number] [address] [place] [address] [place] Hematocrit (Bld) [Volume fraction] 41.2 % Normal 39.0-51.0 [facility] Comment on above: Order Comment: Speci men Type: BLOOD SPECIMEN [facility]ing [facility] Address: [address] [place] [address] Performed By: #### 5 8410-2 #### [facility] CLIA [id number] [address] [place] [address] [place] Hemoglobin (Bld) [Mass/Vol] 12.9 g/dL Low 13.0-17.0 [facility] Comment on above: Order Comment: Speci men Type: BLOOD SPECIMEN [facility]ing [facility] Address: [address] [place] [address] Performed By: #### 5 8410-2 #### [facility] CLIA [id number] [address] [place] [address] [place] MCH (RBC) [Entitic mass] 29.7 pg Normal 26.0-34.0 [facility] Comment on above: Order Comment: Speci men Type: BLOOD SPECIMEN [facility] Address: [address] [place] [address] Performed By: #### 5 8410-2 #### [facility] CLIA [id number] [address] [place] [address] [place] MCHC (RBC) [Mass/Vol] 31.3 g/dL Normal 30.5-36.0 [facility] Comment on above: Order Comment: Speci men Type: BLOOD SPECIMEN [facility] Address: [address] [place] [address] Performed By: #### 5 8410-2 #### [facility] CLIA [id number] [address] [place] [address] [place] MCV (RBC) [Entitic vol] 94.7 fL Normal 80.0-100.0 [facility] Comment on above: Order Comment: Speci men Type: BLOOD SPECIMEN [facility]: [facility] Address: [address] [place] [address] Performed By: #### 5 8410-2 #### [facility] CLIA [id number] [address] [place] [address] [place] Nucleated RBC (Bld) [#/Vol] 10*3/uL Normal <0.01 [facility] Comment on above: Order Comment: Speci men Type: BLOOD SPECIMEN [facility] Address: [address] [place] [address] Performed By: #### 5 8410-2 #### [facility] CLIA [id number] [address] [place] [address] [place] Platelet mean volume (Bld) [Entitic vol] 11.1 fL Normal 9.0-12.7 [facility] Comment on above: Order Comment: Speci men Type: BLOOD SPECIMEN [facility]: [facility] Address: [address] [place] [address] Performed By: #### 5 8410-2 #### [facility] CLIA [id number] [address] [place] [address] [place] Platelets (Bld) [#/Vol] 257 10*3/uL Normal 150-400 [facility] Comment on above: Order Comment: Speci men Type: BLOOD SPECIMEN [facility]ing [facility]: [facility] Address: [address] [place] [address] Performed By: #### 5 8410-2 #### [facility] CLIA [id number] [address] [place] [address] [place] RBC (Bld) [#/Vol] 4.35 10*6/uL Normal 4.20-6.00 [facility] Comment on above: Order Comment: Speci men Type: BLOOD SPECIMEN [facility] Address: [address] [place] [address] Performed By: #### 5 8410-2 #### [facility] CLIA [id number] [address] [place] [address] [place] WBC (Bld) [#/Vol] 10.02 10*3/uL Normal 3.70-11.00 [facility] Comment on above: Order Comment: Speci men Type: BLOOD SPECIMEN Ordering Facility: [facility] Address: [address] [place] [address] Performed By: #### 5 8410-2 #### [facility] CLIA [id number] [address] [place] [address] [place] CNOVon 05-12-2024 CNOV Office Visit (INTMWS ) SEDA MENCHACA ([id number]) 1945 M Date Time Provider Department 05/12/24 12:40 PM PRINCE CELESTE INTMWS During your visit today, we recorded the following information about you: Temperature Pulse Respiration Blood pressure 97.5 degrees 60/minute 16/minute 114/66 Weight 63.1 kg Prince Celeste MD 05/12/2024 1:29 PM Signed This note was created using M:Metricsriter. Subjective Seda Menchaca is a 78 year old male. Diabetes was reportedly controlled. 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 On medication reconciliation, tamsulosin was no longer visible. He described orthostatic dizziness that he related to Herpes zoster. His facial neuralgia was controlled. In fact, he reduced gabapentin on his own 1 month ago, also due to mental fogging. Review of Systems Constitutional: Negative for fatigue and fever. HENT: Negative for congestion. Respiratory: Negative for cough and shortness of breath. Cardiovascular: Negative for chest pain, palpitations and leg swelling. Gastrointestinal: Negative for constipation, diarrhea, nausea and vomiting. Genitourinary: Negative for difficulty urinating and dysuria. Neurological: Positive for light-headedness and headaches. Negative for facial asymmetry. 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 sildenafil (VIAGRA) 100 mg tablet Take 1 tablet by mouth once daily as needed (for ED.). DULoxetine (CYMBALTA) 20 mg capsule Take 1 capsule by mouth once daily. MUNEGHRX-MLQPHLCGB-XVI AMETH 3.5 MG/ML-10,000 UNIT/ML-0.1% EYE DROPS metFORMIN (GLUCOPHAGE) 1,000 mg tablet Take 1 tablet by mouth daily with breakfast. olopatadine (PATANOL) 0.1 % ophthalmic solution Use 1 Drop in both eyes two times a day as needed (allergies). fexofenadine (SOWMYA ALLERGY) 180 mg tablet Take 1 tablet by mouth once daily. blood sugar diagnostic (Twylah ULTRA TEST) test strip Test blood sugar(s) 1 times daily. Dx:E11.9 Insulin: no amLODIPine (NORVASC) 10 mg tablet Take 1 tablet by mouth once daily. [facility] acetaminophen (TYLENOL) 500 mg tablet Take 500 mg by mouth every 8 hours as needed. diclofenac sodium (VOLTAREN) 1 % topical gel Apply 2 g to affected area three times daily as needed (wrist pain). Omeprazole Magnesium (PRILOSEC OTC) 20 mg tablet Take 1 tablet by mouth daily before breakfast. 1/2 hr before meal. nitroglycerin sublingual (NITROQUICK) 0.4 mg SL tablet Dissolve 0.4 mg under the tongue every 5 minutes as needed. metoprolol tartrate, short acting, (LOPRESSOR) 50 mg tablet Take 1 tablet by mouth twice daily. THERAPEUTIC MULTIVITAMIN TAB Take one(1) tablet daily. gabapentin (NEURONTIN) 300 mg capsule Take 1 capsule by mouth daily at bedtime for 180 days. atorvastatin (LIPITOR) 20 mg tablet Take 1 tablet by mouth once daily. [facility]. No current facility-administered medications for this visit. Objective BP 114/66 (BP Site: Right Arm, BP Position: Sitting, BP Cuff Size: Large Adult) Pulse 60 Temp 36.4 ?C (97.5 ?F) (Temporal) Resp 16 Wt 63.1 kg (139 lb 1.8 oz) BMI 23.44 kg/m? Physical Exam Constitutional: General: He is not in acute distress. Appearance: He is not ill-appearing. HENT: Head: Normocephalic. Eyes: Extraocular Movements: Extraocular movements intact. Conjunctiva/sclera: Conjunctivae normal. Cardiovascular: Rate and Rhythm: Normal rate and regular rhythm. Heart sounds: No murmur heard. No gallop. Pulmonary: Breath sounds: Normal breath sounds. Musculoskeletal: Right lower leg: No edema. Left lower leg: No edema. Neurological: General: No focal deficit present. Mental Status: He is alert. Coordination: Coordination normal. Gait: Gait normal. Assessment and Plan 1. Essential hypertension - ICD9: 401.9 (more content not included)... Normal [facility] HbA1c (Bld)on 05-12-2024 Average glucose Estimated from glycated hemoglobin (Bld) [Mass/Vol] 166 mg/dL Normal [facility] Comment on above: Order Comment: Karlene moore Type: BLOOD SPECIMENOrdering Facility: [facility] Address: [address] [place] [address] Result Comment: eAG: (Estimated average glucose) is a calculated value from HgbA1c and is personnel representative of the average blood glucose level in the last 2-3 month period. Performed By: #### 5 5454-3 ####[facility] [id number] [place] [address] [place] HbA1c (Bld) [Mass fraction] 7.4 % High 4.3-5.6 [facility] Comment on above: Order Comment: Karlene moore Type: BLOOD SPECIMENOrdering Facility: [facility] Address: [address] [place] [address] Result Comment: [place] Diabetes Association guidelines indicate that patients with HgbA1c in the range 5.7-6.4% are at increased risk for development of diabetes, and intervention by lifestyle modification may be beneficial. HgbA1c greater or equal to 6.5% is considered diagnostic of diabetes. Performed By: #### 5 5454-3 ####[facility] [id number] [place] [address] [place] Comprehensive Metabolic Prof ilon 02-11-2024 Albumin [Mass/Vol] 3.5 g/dL Normal 3.2-5.0 [facility] Comment on above: Performed By: #### L 500.4050, L500.4100 #### [facility] [address] [place], [address] Albumin/Globulin [Mass ratio] 1.0 {ratio} Normal 0.9-2.4 [facility] Comment on above: Performed By: #### L 500.4050, L500.4100 #### [facility] [address] [place], [address] ALK P 68 U/L Normal 45-117 [facility] Comment on above: Performed By: #### L 500.4050, L500.4100 #### [facility] [address] [place], [address] ALT [Catalytic activity/Vol] 17 U/L Normal 16-61 [facility] Comment on above: Performed By: #### L 500.4050, L500.4100 #### [facility] [address] [place], [address] AST [Catalytic activity/Vol] 16 U/L Normal 15-37 [facility] Comment on above: Performed By: #### L 500.4050, L500.4100 #### [facility] [address] [place], [address] Bilirubin [Mass/Vol] 0.50 mg/dL Normal 0.20-1.00 [facility] Comment on above: Result Comment: For patients on eltrombopag therapy, use of [employer] TBIL is not recommended. Performed By: #### L 500.4050, L500.4100 #### [facility] [address] [place], [address] BUN/CRE 15.8 RATIO Normal 10-20 [facility] Comment on above: Performed By: #### L 500.4050, L500.4100 #### [facility] [address] [place], [address] CA,Total 9.6 mg/dL Normal 8.5-10.1 [facility] Comment on above: Performed By: #### L 500.4050, L500.4100 #### [facility] [address] [place], [address] Chloride [Moles/Vol] 100 mmol/L Normal 98-107 [facility] Comment on above: Performed By: #### L 500.4050, L500.4100 #### [facility] [address] [place], [address] CO2 [Moles/Vol] 33.0 mmol/L High 21.0-32.0 [facility] Comment on above: Performed By: #### L 500.4050, L500.4100 #### [facility] [address] [place], [address] Creatinine [Mass/Vol] 2.21 mg/dL High 0.70-1.30 [place] Comment on above: Result Comment: The validity of the calculated GFR GFRAA in patients over 70 years has not been determined. Clinical correlation is essential. Performed By: #### L 500.4050, L500.4100 #### [facility] [address] [place], [address] EST GFR - AA 37 mL/min Low >60 [facility] Comment on above: Result Comment: Afri can Japanese GFR Calc Performed By: #### L 500.4050, L500.4100 #### [facility] [address] [place], [address] GAP 5 Normal 5-15 [facility] Comment on above: Performed By: #### L 500.4050, L500.4100 #### [facility] [address] [place], [address] GFR/1.73 sq M.predicted among non-blacks MDRD (S/P/Bld) [Vol rate/Area] 31 mL/min/{1.73_m2} Low >60 [facility] Comment on above: Result Comment: Non- GFR Calc Performed By: #### L 500.4050, L500.4100 #### [facility] [address] [place], [address] Globulin (S) [Mass/Vol] 3.6 g/dL Normal 2.2-4.2 [facility] Comment on above: Performed By: #### L 500.4050, L500.4100 #### [facility] [address] [place], [address] Glucose [Mass/Vol] 159 mg/dL High 74-106 [facility] Comment on above: Result Comment: Fast ing Glucose result greater than or equal to 126 mg/dL suggests DIABETES MELLITUS per A.D.A. criteria. Performed By: #### L 500.4050, L500.4100 #### [facility] [address] [place], [address] Potassium [Moles/Vol] 3.8 mmol/L Normal 3.5-5.1 [place] Comment on above: Performed By: #### L 500.4050, L500.4100 #### [facility] [address] [place], [address] Sodium [Moles/Vol] 138 mmol/L Normal 136-145 [facility] Comment on above: Performed By: #### L 500.4050, L500.4100 #### [facility] [address] [place], [address] T PROT 7.1 g/dL Normal 6.4-8.2 [facility] Comment on above: Performed By: #### L 500.4050, L500.4100 #### [facility] [address] [place], [address] Urea nitrogen [Mass/Vol] 35 mg/dL High 7-18 [facility] Comment on above: Performed By: #### L 500.4050, L500.4100 #### [facility] [address] [place], [address] Lipid Profileon 02-11-2024 Cholesterol [Mass/Vol] 121 mg/dL Normal 200 [facility] Comment on above: Result Comment: <200 mg/dL Desirable 200-240 mg/dL Borderline >240 mg/dL High Risk Performed By: #### L 500.4050, L500.4100 #### [facility] [address] [place], [address] Cholesterol in HDL [Mass/Vol] 36 mg/dL Low [facility] Comment on above: Result Comment: The drugs N-Acetylcysteine and Metamizole may falsely depress this assay. Reference Range HDL <40 mg/dL Low HDL Cholesterol HDL >or= 60 mg/dL High HDL Cholesterol Performed By: #### L 500.4050, L500.4100 #### [facility] [address] [place], [address] Cholesterol in LDL [Mass/Vol] 61 mg/dL Normal 0-130 [facility] Comment on above: Performed By: #### L 500.4050, L500.4100 #### [facility] [address] [place], [address] Cholesterol in VLDL [Mass/Vol] 24 mg/dL Normal 5-40 [facility] Comment on above: Performed By: #### L 500.4050, L500.4100 #### [facility] [address] [place], [address] Triglyceride [Mass/Vol] 121 mg/dL Normal [facility] Comment on above: Result Comment: The drugs N-Acetylcysteine and Metamizole may falsely depress this assay. Serum Triglycerides Reference Interval Normal <150 mg/dL Borderline high 150 - 199 mg/dL High 200 - 499 mg/dL Very High > or = 500 mg/dL Performed By: #### L 500.4050, L500.4100 #### [facility] [address] [place], [address] Carotid Duplex Ultrasoundon 01-15-2024 Carotid Duplex Ultrasound [facility] [address] [place] [address] Carotid Duplex Ultrasound 01/15/24 1313 MR#: [id number] Acct: [id number] Name: SEDA MENCHACA Rep #: [id number] : 1945 78 From: Reynaldo Garcia MD Attending Dr: Dr. David Fox MD Status: REG CLI Ordering Dr: David Fox MD Date: 01/15/24 Location: [facility] Sex: M C Admitted: Reason For Study: Dizziness Rt. Velocities/BP Lt. Velocities/BP Prox CCA 78.7/12.7 cm/sec. Prox CCA 75.4/11.6 cm/sec. Mid CCA 63.3/13.8 cm/sec. Mid CCA 75.6/13.0 cm/sec. Dist CCA 87.5/17.1 cm/sec. Dist CCA 75.6/13.0 cm/sec. Prox ICA 62.2/11.7 cm/sec. Prox ICA 89.1/14.2 cm/sec. Mid ICA 73.2/20.4 cm/sec. Mid ICA 55.6/14.9 cm/sec. Dist ICA 57.0/15.7 cm/sec. Dist ICA 67.7/18.2 cm/sec. Rt. ICA/CCA = 1.2. Lt. ICA/CCA = 1.2. Prox ECA 80.9/9.5 cm/sec. Prox ECA 69.9/7.3 cm/sec. Rt. Vert. 47.9/12.7 cm/sec. Lt. Vert. 59.7/10.6 cm/sec. Right Extracranial There is heterogeneous, irregular atherosclerotic plaque noted in the right common carotid artery. There is heterogeneous, irregular atherosclerotic plaque noted in the right internal carotid artery. The atherosclerotic plaque causes acoustic shadowing. There is heterogeneous, irregular atherosclerotic plaque noted in the right external carotid artery. Antegrade flow is noted in the right vertebral artery. Left Extracranial There is homogeneous, smooth atherosclerotic plaque noted in the left common carotid artery. There is heterogeneous, irregular atherosclerotic plaque noted in the left internal carotid artery. There is heterogeneous, irregular atherosclerotic plaque noted in the left external carotid artery. Antegrade flow is noted in the left vertebral artery. Procedure Carotid Duplex [id number]. This is a Carotid Duplex examination using B-mode, color flow and specral Doppler. The exam was diagnostic. Exam performed in department. VL/Carotid Duplex Ultrasound Interpretation Summary Mild (<50%) stenosis right extracranial internal carotid. Mild (<50%) stenosis left extracranial internal carotid. Patent and antegrade vertebrals bilaterally. Ordering Physician: David Fox Referring Physician: Booker Morrison Performed By: Elijah Guthrie, Adonay 01/15/241949 Date Reynaldo Garcia MD CC: Dr. David Fox MD; Dr. Prince Celeste MD Date Dictated: 01/15/24 1313 Date Transcribed: 01/15/241949 Nurse College: Signed Normal [facility] Echo Completeon 01-15-2024 Echo Complete [facility] [address] [place] [address] Echo Complete 01/15/24 1358 MR#: [id number] Acct: [id number] Name: SEDA MENCHACA Rep #: [id number] : 1945 78 From: David Fox MD Attending Dr: Dr. David Fox MD Status: REG CLI Ordering Dr: David Fox MD Date: 01/15/24 Location: [facility] Sex: M C Admitted: Reason For Study: CORONARY ARTERY DISEASE Procedure This was a 2D Doppler, Color Flow transthoracic echocardiogram. Exam performed in department. Left Ventricle Normal size and thickness. The left ventricular ejection fraction is 60 %. Diastolic function is indeterminate. Right Ventricle Normal right ventricle. Atria There is moderate biatrial dilatation. Mitral Valve Moderate (2+) mitral valve insufficiency. Tricuspid Valve Moderate (2+) tricuspid valve insufficiency. Right ventricular systolic pressure estimated to be 38 mmHg. Aortic Valve Aortic sclerosis, no stenosis. Mild (1+) aortic valve insufficiency. Pulmonic Valve Mild-Moderate (1-2+) pulmonic valve insufficiency. Great Vessels Normal sized aortic root. Pericardium/Pleural No pericardial effusion. MMode/2D Measurements Calculations LVIDd: 4.2 cm IVSd: 0.98 cm LVOT diam: 2.1 cm LVIDs: 2.9 cm LVPWd: 0.91 cm LVOT area: 3.4 cm2 RVDd: 3.9 cm FS: 31.3 % asc Aorta Diam: 3.4 cm LAV(MOD-bp): 55.0 ml LVAd ap4: 26.6 cm2 LAV(MOD-bp) Indexed: 32.3 ml/m2 LVLd ap4: 7.5 cm LAV(MOD-sp2): 50.2 ml EDV(MOD-sp4): 76.0 ml LAV(MOD-sp4): 54.0 ml EDV(sp4-el): 80.0 ml LVAs ap4: 17.1 cm2 LVLs ap4: 6.3 cm ESV(MOD-sp4): 39.1 ml ESV(sp4-el): 39.4 ml EF(MOD-sp4): 48.6 % EF(sp4-el): 50.7 % LVAd ap2: 25.5 cm2 SV(MOD-sp4): 36.9 ml SV(MOD-sp2): 37.2 ml LVLd ap2: 7.4 cm EDV(MOD-sp2): 72.6 ml EDV(sp2-el): 74.4 ml LVAs ap2: 16.3 cm2 LVLs ap2: 6.3 cm ESV(MOD-sp2): 35.3 ml ESV(sp2-el): 35.8 ml EF(MOD-sp2): 51.3 % SV(sp4-el): 40.6 ml Ao sinus diam: 3.[address] Junction: 2.4 cm LA dimension(2D): 4.2 cm LA A4 area: 20.2 cm2 RA A4 area: 15.1 cm2 TAPSE: 1.3 cm Time Measurements MV dec time: 0.16 sec Doppler Measurements Calculations MV E max brielle: 92.9 cm/sec Lat Peak E' Brielle: 10.1 cm/sec Med Peak E' Brielle: 6.2 cm/sec MV A max brielle: 81.1 cm/sec E/E' lat: 9.2 E/E' med: 15.1 MV E/A: 1.1 MV dec slope: 595.3 cm/sec2 Ao V2 max: 121.0 cm/sec AI max brielle: 316.2 cm/sec Ao max P.9 mmHg AI max P.0 mmHg Ao V2 mean: 84.7 cm/sec AI dec slope: 163.9 cm/sec2 Ao mean P.2 mmHg AI P1/2t: 565.1 msec Ao V2 VTI: 29.7 cm AV (velocity ratio): 0.90 DREW(I,D): 3.0 cm2 DREW(V,D): 3.3 cm2 LV V1 max: 118.0 cm/sec SV(LVOT): 90.1 ml PA V2 max: 82.8 cm/sec LV V1 max P.6 mmHg PA max PG (full): 1.9 mmHg LV V1 mean P.7 mmHg LV V1 mean: 79.1 cm/sec LV V1 VTI: 26.6 cm PI end-d brielle: 104.6 cm/sec TR max brielle: 287.9 cm/sec TR max P.2 mmHg ECHO/Echo Complete Interpretation Summary The left ventricular ejection fraction is 60 %. Diastolic function is indeterminate. There is moderate biatrial dilatation. Moderate (2+) mitral valve insufficiency. Moderate (2+) tricuspid valve insufficiency. Right ventricular systolic pressure estimated to be 38 mmHg. Aortic sclerosis, no stenosis. Mild (1+) aortic valve insufficiency. Mild-Moderate (1-2+) pulmonic valve insufficiency. Ordering Physician: David Fox Referring Physician: Prince Celeste M.D. Performed By: Marisela Ibrahim HALLE 01/23/24 1622 Date David Fox MD CC: Dr. David Fox MD; Dr. Prince Celeste MD Date Dictated: 01/15/24 1358 Date Transcribed: 01/23/24 1622 Nurse College: Signed Normal [facility] Comprehensive Metabolic Prof ilon 01-09-2024 Albumin [Mass/Vol] 3.3 g/dL Normal 3.2-5.0 [facility] Comment on above: Performed By: #### L 500.4100, L500.4050 #### [facility] [address] [place], [address] Albumin/Globulin [Mass ratio] 0.9 {ratio} Normal 0.9-2.4 [facility] Comment on above: Performed By: #### L 500.4100, L500.4050 #### [facility] [address] [place], [address] ALK P 71 U/L Normal 45-117 [facility] Comment on above: Performed By: #### L 500.4100, L500.4050 #### [facility] [address] [place], [address] ALT [Catalytic activity/Vol] 21 U/L Normal 16-61 [facility] Comment on above: Performed By: #### L 500.4100, L500.4050 #### [facility] [address] [place], [address] AST [Catalytic activity/Vol] 22 U/L Normal 15-37 [facility] Comment on above: Performed By: #### L 500.4100, L500.4050 #### [facility] [address] [place], [address] Bilirubin [Mass/Vol] 0.40 mg/dL Normal 0.20-1.00 [facility] Comment on above: Result Comment: For patients on eltrombopag therapy, use of [employer] TBIL is not recommended. Performed By: #### L 500.4100, L500.4050 #### [facility] [address] [place], [address] BUN/CRE 13.1 RATIO Normal 10-20 [facility] Comment on above: Performed By: #### L 500.4100, L500.4050 #### [facility] [address] [place], [address] CA,Total 9.3 mg/dL Normal 8.5-10.1 [facility] Comment on above: Performed By: #### L 500.4100, L500.4050 #### [facility] [address] [place], [address] Chloride [Moles/Vol] 100 mmol/L Normal 98-107 [facility] Comment on above: Performed By: #### L 500.4100, L500.4050 #### [facility] [address] [place], [address] CO2 [Moles/Vol] 32.0 mmol/L Normal 21.0-32.0 [facility] Comment on above: Performed By: #### L 500.4100, L500.4050 #### [facility] [address] [place], [address] Creatinine [Mass/Vol] 1.83 mg/dL High 0.70-1.30 [place] Comment on above: Result Comment: The validity of the calculated GFR GFRAA in patients over 70 years has not been determined. Clinical correlation is essential. Performed By: #### L 500.4100, L500.4050 #### [facility] [address] [place], [address] EST GFR - AA 46 mL/min Low >60 [facility] Comment on above: Result Comment: Afri can Japanese GFR Calc Performed By: #### L 500.4100, L500.4050 #### [facility] [address] [place], [address] GAP 7 Normal 5-15 [facility] Comment on above: Performed By: #### L 500.4100, L500.4050 #### [facility] [address] [place], [address] GFR/1.73 sq M.predicted among non-blacks MDRD (S/P/Bld) [Vol rate/Area] 38 mL/min/{1.73_m2} Low >60 [facility] Comment on above: Result Comment: Non- GFR Calc Performed By: #### L 500.4100, L500.4050 #### [facility] [address] [place], [address] Globulin (S) [Mass/Vol] 3.7 g/dL Normal 2.2-4.2 [facility] Comment on above: Performed By: #### L 500.4100, L500.4050 #### [facility] [address] [place], [address] Glucose [Mass/Vol] 183 mg/dL High 74-106 [facility] Comment on above: Result Comment: Fast ing Glucose result greater than or equal to 126 mg/dL suggests DIABETES MELLITUS per A.D.A. criteria. Performed By: #### L 500.4100, L500.4050 #### [facility] [address] [place], [address] Potassium [Moles/Vol] 3.6 mmol/L Normal 3.5-5.1 [place] Comment on above: Performed By: #### L 500.4100, L500.4050 #### [facility] [address] [place], [address] Sodium [Moles/Vol] 139 mmol/L Normal 136-145 [facility] Comment on above: Performed By: #### L 500.4100, L500.4050 #### [facility] [address] [place], [address] T PROT 7.0 g/dL Normal 6.4-8.2 [facility] Comment on above: Performed By: #### L 500.4100, L500.4050 #### [facility] [address] [place], [address] Urea nitrogen [Mass/Vol] 24 mg/dL High 7-18 [facility] Comment on above: Performed By: #### L 500.4100, L500.4050 #### [facility] [address] [place], [address] Lipid Profileon 09-18-2024 Cholesterol [Mass/Vol] 135 mg/dL Normal 200 [facility] Comment on above: Result Comment: <200 mg/dL Desirable 200-240 mg/dL Borderline >240 mg/dL High Risk Performed By: #### L 500.4100, L500.4050 #### [facility] [address] [place], [address] Cholesterol in HDL [Mass/Vol] 41 mg/dL Normal [facility] Comment on above: Result Comment: The drugs N-Acetylcysteine and Metamizole may falsely depress this assay. Reference Range HDL <40 mg/dL Low HDL Cholesterol HDL >or= 60 mg/dL High HDL Cholesterol Performed By: #### L 500.4100, L500.4050 #### [facility] [address] [place], [address] Cholesterol in LDL [Mass/Vol] 71 mg/dL Normal 0-130 [facility] Comment on above: Performed By: #### L 500.4100, L500.4050 #### [facility] [address] [place], [address] Cholesterol in VLDL [Mass/Vol] 23 mg/dL Normal 5-40 [facility] Comment on above: Performed By: #### L 500.4100, L500.4050 #### [facility] [address] [place], [address] Triglyceride [Mass/Vol] 113 mg/dL Normal [facility] Comment on above: Result Comment: The drugs N-Acetylcysteine and Metamizole may falsely depress this assay. Serum Triglycerides Reference Interval Normal <150 mg/dL Borderline high 150 - 199 mg/dL High 200 - 499 mg/dL Very High > or = 500 mg/dL Performed By: #### L 500.4100, L500.4050 #### [facility] [address] [place], [address] Cardiology Visit Reporton Cardiology Visit Report [facility] [address] [place], [place] [address] OFFICE VISIT Date of Service: 01/01/24 MR#: [id number] Acct: [id number] Name: SEDA MENCHACA Rep #: [id number] : 1945 Provider: Dr. David Fox MD Age/Sex: 78/M Location: [facility] [place] Status: Signed HPI HPI History of Present Illness Details: This gentleman has past medical history significant for coronary artery disease status post CABG with ESCOBAR to the LAD, SVG sequentially to the first and second diagonal of the anterior descending and SVG to the circumflex and an SVG to RCA. No chest pains. Some shortness of breath with moderate to strenuous exertion. No orthopnea. No PND. No ankle edema. Recovering from zoster infection of the face. Intake Vital Signs 09/02/23 11:52 01/01/24 08:53 Height 5 ft 5 in 5 ft 5 in BP 125/75 H Blood Pressure Location Lt brachial Position Sitting Respiration 16 Pulse 63 Pulse Source NIBP Intake Visit Reasons: 6 M FU Knot Tier Required: No Accompanied by: Self Is patient in pain?: No Allergies Penicillins Allergy (Verified 01/01/24 14:06) Unknown Medications ???Medication ???Instructions ???Recorded ???Confirmed ???Type nitroglycerin 0.4 mg sublingual 0.4 mg sublingual Q5M PRN Chest 05/12/14 01/01/24 History tablet Pain tamsulosin 0.4 mg capsule 0.4 mg PO DAILY urine flow 05/12/14 01/01/24 History sildenafil 100 mg tablet (Viagra) 100 mg PO DAILY PRN sexual activity 03/12/19 01/01/24 History metformin 500 mg tablet 1,000 mg PO DAILY diabetes 05/24/20 01/01/24 History acetaminophen 500 mg tablet 500 mg PO Q6H PRN pain, fever 10/05/21 01/01/24 History (Tylenol Extra Strength) cetirizine 10 mg tablet 10 mg PO DAILY sinus 10/05/21 01/01/24 History amlodipine 10 mg tablet 10 mg PO QDAY blood prerssure #90 02/19/23 01/01/24 Rx tabs metoprolol tartrate 50 mg tablet 50 mg PO BID heart #180 tabs 02/19/23 01/01/24 Rx atorvastatin 40 mg tablet 40 mg PO QHS cholesterol #90 tabs 06/07/23 01/01/24 Rx glipizide 2.5 mg tablet, extended 2.5 mg PO DAILY diabetes 06/07/23 01/01/24 History release 24 hr gabapentin 100 mg capsule 200 mg PO QHS shingle pain at 07/17/23 01/01/24 History night time multivitamin with minerals-folic 1 tab PO DAILY suppliment 07/17/23 01/01/24 History acid 80 mcg chewable tablet (Centrum Adult 50 Plus) acfenwan-jeksgmxdn-uor ameth 3.5 1 drp LEFT EYE 4X/DAY shingles 07/17/23 01/01/24 History mg/mL-10,000 unit/mL-0.1% eye drops valacyclovir 1 gram tablet 1,000 mg PO TID 4 days #12 tabs 07/18/23 01/01/24 Rx (Valtrex) Ejection fraction %: 65 Have you fallen in the past year?: No PFSH Medical History Abnormal result of cardiovascular function study Abnormal stress test Atherosclerotic heart disease of [place] coronary artery without angina pectoris Chest pain, precordial Diabetes mellitus type 2 with peripheral artery disease Dizziness Dyspnea, unspecified Edema Essential hypertension Family history of completed stroke Family history of ischemic heart disease and other diseases of the circulatory system Fatigue Fatigue Herpes zoster Hypertension Long-term use of high-risk medication Old myocardial infarction Pure hypercholesterolemia Surgical History Aortocoronary bypass status ( 06/30/08) History of carpal tunnel surgery Family History Mother CVA (cerebral vascular accident) Brother CAD (coronary artery disease) Social History Smoking Status: Former smoker alcohol intake: never ROS Const Const: Positive for headache(s) (pt reports associated with shingles. improves with medication) and other (May 2023 shingles on face and neck); Negative for fatigue (pt reports d/t shingles medications) or weakness ENT ENT: Positive for headache(s) (pt reports associated with shingles. improves with medication); Negative for dizziness, Nosebleed/epistaxis or balance problems Cardio Chest Pain: No Palpitations: No Edema: None Muscle aches with walking: None Resp Respiratory: Positive for SOB with activity (when performing yard work); Negative for SOB at rest or SOB orthopnea SOB lying down GI GI: Negative nausea, vomiting or heartburn Musc Musc: Positive for muscle aches/ myalgia (persistent RLE above the knee soreness); Negative for muscle weakness, joint pain or balance problems Neuro Neuro: Positive for headache(s) (pt reports associated with shingles. improves with medication); Negative for dizziness, lightheadedness, near syncope, syncope or weakness Endo Endo: Negative for fatigue (pt reports d/t s (more content not included)... Normal [facility] 11-14-[address] [facility] Telephone (INTMWS) SEDA MENCHACA ([id number]) 1945 M Date Time Provider Department 11/14/23 PRINCE CELESTE During your visit today, we recorded the following information about you: Gisselle Craven LPN 11/14/2023 8:50 AM Signed ----- Message from Prince Celeste MD sent at 11/14/2023 8:31 AM EDT ----- DM reasonably controlled with improved A1c of 6.3 . Chronic kidney disease stable Cholesterol controlled at total cholesterol 119. Gisselle Craven LPN 11/14/2023 8:53 AM Signed Left message to call AND speak to nurse re: results. Natalie Bethea LPN, RN 11/14/2023 11:35 AM Signed Patient notified of results. Patient verbalizes understanding. Natalie Mauricio RN Allergies As of Date: 11/14/2023 Noted Allergy Reaction KEFLEX (CEPHALEXIN) 08/09/2007 2 - Rash Comments: Rash and itching.Pt told by to discontinue Keflex immediately. OFLOXACIN 12/12/2013 4 - Hives Comments: ofloxacin ear drops PENICILLINS 12/06/2004 2 - Rash Date Reviewed: 11/12/2023 Reviewed by: Gisselle Craven LPN - Fully Assessed Reason for Visit: Results [95] Prescriptions as of 11/14/2023 - gabapentin (NEURONTIN) 300 mg capsule Take 1 capsule by mouth two times a day for 90 days. - traZODone (DESYREL) 100 mg tablet Take 1 tablet by mouth daily at bedtime. - sildenafil (VIAGRA) 100 mg tablet Take 1 tablet by mouth once daily as needed (for ED.). - DULoxetine (CYMBALTA) 20 mg capsule Take 1 capsule by mouth once daily. - VXDDNUPU-GZVINGHYR-XPS AMETH 3.5 MG/ML-10,000 UNIT/ML-0.1% EYE DROPS - metFORMIN (GLUCOPHAGE) 1,000 mg tablet Take 1 tablet by mouth daily with breakfast. - olopatadine (PATANOL) 0.1 % ophthalmic solution Use 1 Drop in both eyes two times a day as needed (allergies). - atorvastatin (LIPITOR) 40 mg tablet Take 1 tablet by mouth daily at bedtime. For cholesterol. - fexofenadine (SOWMYA ALLERGY) 180 mg tablet Take 1 tablet by mouth once daily. - blood sugar diagnostic (aloomaUCH ULTRA TEST) test strip Test blood sugar(s) 1 times daily. Dx:E11.9 Insulin: no - amLODIPine (NORVASC) 10 mg tablet Take 1 tablet by mouth once daily. Per [facility] - acetaminophen (TYLENOL) 500 mg tablet Take 500 mg by mouth every 8 hours as needed. - diclofenac sodium (VOLTAREN) 1 % topical gel Apply 2 g to affected area three times daily as needed (wrist pain). - Omeprazole Magnesium (PRILOSEC OTC) 20 mg tablet Take 1 tablet by mouth daily before breakfast. 1/2 hr before meal. - nitroglycerin sublingual (NITROQUICK) 0.4 mg SL tablet Dissolve 0.4 mg under the tongue every 5 minutes as needed. - metoprolol tartrate, short acting, (LOPRESSOR) 50 mg tablet Take 1 tablet by mouth twice daily. - tamsulosin (FLOMAX) 0.4 mg Take 1 capsule by mouth daily at bedtime. Dr. Singh. - THERAPEUTIC MULTIVITAMIN TAB Take one(1) tablet daily. 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] 08/29/2007 03/13/2014 Disorders of bursae and tendons in shoulder reg*05/26/2008 03/06/2013 IMPOTENCE, ORGANIC ORIGN [N52.9] 05/26/2008 Coronary atherosclerosis [I25.10] 07/08/2008 Overweight(278.02) [E66.3] 07/15/2008 03/13/2014 Anemia, unspecified [D64.9] 07/20/2008 03/06/2013 GERD (gastroesophageal reflux disease) [K21.9] 02/17/2009 Bladder Cancer [C67.9] 05/20/2009 Osteoarthritis [M19.90] 05/20/2009 Dysuria [R30.0] 09/04/2012 03/06/2013 Right inguinal hernia [K40.90] 12/25/2012 03/06/2013 Lumbago with sciatica, unspecified side [M54.40]03/16/2015 CKD (chronic kidney disease) stage 3, GFR 30-59*06/28/2015 11/07/2021 Acute bilateral low back pain without sciatica *12/01/2015 12/12/2016 Cervicalgia of svyrbdlh-wbjylum-pgwqc region [M*06/13/2018 Squamous cell cancer of scalp and skin of neck *06/12/2019 Arthritis of hand [M19.049] 01/21/2020 Hypertensive kidney disease with stage 3 chroni*11/03/2021 Insomnia [G47.00] 11/08/2022 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 CNOVon 11-12-2023 CNOV Office Visit (INTMWS ) SEDA MENCHACA ([id number]) 1945 M Date Time Provider Department 11/12/23 1:40 PM PRINCE CELESTE INTMWS During your visit today, we recorded the following information about you: Temperature Pulse Respiration Blood pressure 98 degrees 64/minute 16/minute 116/62 Weight Height 65.8 kg 1.641 m Prince Celeste MD 11/12/2023 2:51 PM Signed Seda Menchaca is a 77 year old male here for a Medicare wellness visit. Medicare Health Risk Assessment General Health Good Exercise: Minutes/Day 10 min Exercise: Days/Week 2 days Alcohol: Daily Use Never Alcohol: Drinks/Day Patient does not drink Alcohol: 6 or more drinks Never Feel off balance Yes Concerns: Teeth/Dentures No Concerns: Sexual function Yes Troubled by feelings None of the above Frequency: Eating healthy diet Nearly every day ADLs requiring help Handling finances Safety precautions in home/vehicle Yes Smoke, vape, chews tobacco No Difficulty hearing No Difficulty seeing No Current Providers Specialists: I have reviewed specialist-related care of the patient in the medical record. Current care team: Patient Care Team: Prince Celeste MD as PCP - General Outside specialists seen: Dr. David Fox, cardiology, [facility]. Dr. Dale Singh, urology. Dr. Spencer Bailey, optometry. Dr Terrazas, [facility]. Dr. Karmen Delgado, [facility]. Dr. Karmen Diamond, nephrology. Dr. Michael Rivas, ophthalmology. Medical/Family history review Reviewed and updated problem list, medical/surgical/famil y/social history, medications, and allergies. Opioid use review Opioid Medications (last 90 days) No data to display Anxiety/Depression screening PHQ-2 Score: 0 (Lower risk for depression) ESME-2 Score: 0 (Lower risk for anxiety) Recommendation: no further intervention at this time Cognitive screening Mini Cog Score: 3 Cognitive screening reviewed and No further action needed (score 3-5). Functional Observation Was the patient's Timed Up AND Go test unsteady or ? 12 seconds? No Advance Care Planning Patient was not able to provide a surrogate decision maker or written advance directives Measurements BP 116/62 Pulse 64 Temp (Src) 98 (Temporal) Resp 16 Ht 5' 4.6 (1.64m) Wt 145 lb (65.8kg) BMI 24.42 kg/(m2). Vision Screening: Follows with optometry/ophthalmolog y Right: 20/50 Left: 20/ 40 Both: 20/40 Assessment/Plan Medicare annual wellness visit, subsequent (Z00.00) - Counseled on healthy diet and regular exercise - Fall avoidance information provided - Personalized prevention plan provided - Vaccines reviewed. Covid vaccine given. Prince Celeste MD 11/12/2023 2:51 PM Signed This note was created using M:[employer]. Subjective Seda Menchaca is a 77 year old male. He started having recurrent hypoglycemia, and we had to stop Glipizide. His glucose was now elevating. His neuralgia was stable. Herpetic keratitis was reported to be healed. His diplopia was resolved. He saw the early childhood specialist in [place] who released him back to his local specialists. He was driving without difficulty. Review of Systems Constitutional: Negative for fatigue and fever. HENT: Negative. Eyes: Negative for visual disturbance. Respiratory: Negative for cough, shortness of breath and wheezing. Cardiovascular: Negative for chest pain, palpitations and leg swelling. Gastrointestinal: Negative. Genitourinary: Negative. Neurological: Positive for numbness. 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 Physical Exam Constitutional: Appearance: He is not ill-appearing. HENT: Head: Normocephalic. Eyes: Extraocular Movements: Extraocular movements intact. Conjunctiva/sclera: Conjunctivae normal. Cardiovascular: Rate and Rhythm: Normal rate and regular rhythm. Heart sounds: No murmur heard. No gallop. Pulmonary: Breath sounds: Normal breath sounds. Musculoskeletal: Right lower leg: No edema. Left lower leg: No edema. Lymphadenopathy: Cervical: No cervical radha (more content not included)... Normal [facility] Comprehensive metabolic 2000 panelon 11-12-2023 Albumin [Mass/Vol] 3.9 g/dL Normal 3.9-4.9 [facility] Comment on above: Order Comment: Speci men Type: BLOOD SPECIMENOrdering Facility: [facility] Address: [address] [place] [address] Performed By: #### 2 4323-8, 12763-7 ####[facility] LABCLIA [id number] [place] [address] [place] ALP [Catalytic activity/Vol] 74 U/L Normal 38-113 [facility] Comment on above: Order Comment: Speci men Type: BLOOD SPECIMENOrdering Facility: [facility] Address: [address] [place] [address] Performed By: #### 2 4323-8, 17956-5 ####[facility] LABCLIA [id number] [place] [address] [place] ALT [Catalytic activity/Vol] 13 U/L Normal 10-54 [facility] Comment on above: Order Comment: Speci men Type: BLOOD SPECIMENOrdering Facility: [facility] Address: [address] [place] [place] [id number] Performed By: #### 2 4323-8, 94308-0 ####[facility] LABCLIA [id number] [place] [address] [place] Anion gap [Moles/Vol] 9 mmol/L Normal 8-15 [facility] Comment on above: Order Comment: Speci men Type: BLOOD SPECIMENOrdering Facility: [facility] Address: [address] [place] [address] Performed By: #### 2 4323-8, 52640-2 ####[facility] LABCLIA [id number] [place] [address] [place] AST [Catalytic activity/Vol] 22 U/L Normal 14-40 [facility] Comment on above: Order Comment: Speci men Type: BLOOD SPECIMENOrdering Facility: [facility] Address: [address] [place] [address] Performed By: #### 2 4323-8, 27987-9 ####[facility] LABCLIA [id number] [place] [address] [place] Bilirubin [Mass/Vol] 0.4 mg/dL Normal 0.2-1.3 [facility] Comment on above: Order Comment: Speci men Type: BLOOD SPECIMENOrdering Facility: [facility] Address: [address] [place] [address] Performed By: #### 2 4323-8, 81651-0 ####[facility] LABCLIA [id number] [place] [id number] [place] Calcium [Mass/Vol] 9.8 mg/dL Normal 8.5-10.2 [facility] Comment on above: Order Comment: Speci men Type: BLOOD SPECIMENOrdering Facility: [facility] Address: [address] [place] [address] Performed By: #### 2 4323-8, 40599-3 ####[facility] LABCLIA [id number] [place] [address] [place] Chloride [Moles/Vol] 103 mmol/L Normal 98-107 [facility] Comment on above: Order Comment: Speci men Type: BLOOD SPECIMENOrdering Facility: [facility] Address: [address] [place] [address] Performed By: #### 2 4323-8, 71423-9 ####[facility] LABIA [id number] [place] [address] [place] CO2 [Moles/Vol] 26 mmol/L Normal 22-30 [facility] Comment on above: Order Comment: Speci men Type: BLOOD SPECIMENOrdering Facility: [facility] Address: [address] [place] [address] Performed By: #### 2 4323-8, 89250-3 ####[facility] LABCLIA [id number] [place] [address] [place] Creatinine [Mass/Vol] 1.50 mg/dL High 0.73-1.22 [facility] Comment on above: Order Comment: Speci men Type: BLOOD SPECIMENOrdering Facility: [facility] Address: [address] [place] [address] Performed By: #### 2 4323-8, 94928-5 ####[facility] LABIA [id number] [place] [address] [place] Creatinine and Glomerular filtration rate.predicted panel (S/P/Bld) 48 mL/min/1.73m??? Low >=60 [facility] Comment on above: Order Comment: Speci men Type: BLOOD SPECIMENOrdering Facility: [facility] Address: [address] [place] [address] Result Comment: Kimberly mated Glomerular Filtration Rate (eGFR) is calculated using the 2020 CKD-EPI creatinine equation. This equation utilizes serum creatinine, sex, and age as parameters. The creatinine assay has traceable calibration to isotope dilution-mass spectrometry. Refer to KDIGO guidelines for clinical interpretation. In patients with unstable renal function, e.g. those with acute kidney injury, the eGFR may not accurately reflect actual GFR. Performed By: #### 2 4323-8, 65625-1 ####[facility] LABCLIA [id number] [address] [address] [place] Glucose [Mass/Vol] 149 mg/dL High 74-99 [facility] Comment on above: Order Comment: Karlene moore Type: BLOOD SPECIMENOrdering Facility: [facility] Address: [address] [place] [address] Result Comment: The [place] Diabetes Association (ADA) provides guidance for cutoff values for fasting glucose and random glucose. The ADA defines fasting as no caloric intake for at least 8 hours. Fasting plasma glucose results between 100 to 125 mg/dL indicate increased risk for diabetes (prediabetes). Fasting plasma glucose results greater than or equal to 126 mg/dL meet the criteria for diagnosis of diabetes. In the absence of unequivocal hyperglycemia, results should be confirmed by repeat testing. In a patient with classic symptoms of hyperglycemia or hyperglycemic crisis, random plasma glucose results greater than or equal to 200 mg/dL meet the criteria for diagnosis of diabetes. Reference: Standards of Medical Care in Diabetes 2016, [place] Diabetes Association. Diabetes Care. 2016.39(Suppl 1). Performed By: #### 2 4323-8, 60236-1 ####[facility] LABCLIA [id number] [place] [address] [place] Potassium [Moles/Vol] 4.0 mmol/L Normal 3.7-5.1 [facility] Comment on above: Order Comment: Karlene moore Type: BLOOD SPECIMENOrdering Facility: [facility] Address: [address] [place] [address] Performed By: #### 2 4323-8, 11184-0 ####[facility] LABCLIA [id number] [address] [address] [place] Protein [Mass/Vol] 6.6 g/dL Normal 6.3-8.0 [facility] Comment on above: Order Comment: Speci men Type: BLOOD SPECIMENOrdering Facility: [facility] Address: [address] [place] [address] Performed By: #### 2 4323-8, 90719-2 ####[facility] LABCLIA [id number] [place] [address] [place] Sodium [Moles/Vol] 138 mmol/L Normal 136-144 [facility] Comment on above: Order Comment: Speci men Type: BLOOD SPECIMENOrdering Facility: [facility] Address: [address] [place] [address] Performed By: #### 2 4323-8, 13213-1 ####[facility] LABCLIA [id number] [place] [address] [place] Urea nitrogen [Mass/Vol] 22 mg/dL Normal 9-24 [facility] Comment on above: Order Comment: Speci men Type: BLOOD SPECIMENOrdering Facility: [facility] Address: [address] [place] [address] Performed By: #### 2 4323-8, 99315-3 ####[facility] LABCLIA [id number] [place] [address] [place] HbA1c (Bld)on 11-12-2023 Average glucose Estimated from glycated hemoglobin (Bld) [Mass/Vol] 134 mg/dL Normal [facility] Comment on above: Order Comment: Speci men Type: BLOOD SPECIMENOrdering Facility: [facility] Address: [address] [place] [address] Result Comment: eAG: (Estimated average glucose) is a calculated value from HgbA1c and is personnel representative of the average blood glucose level in the last 2-3 month period. Performed By: #### 5 5454-3 ####[facility] LABCLIA [id number] [place] [address] [place] HbA1c (Bld) [Mass fraction] 6.3 % High 4.3-5.6 [facility] Comment on above: Order Comment: Indyi men Type: BLOOD SPECIMENOrdering Facility: [facility] Address: [address] [place] [address] Result Comment: Amer [place] Diabetes Association guidelines indicate that patients with HgbA1c in the range 5.7-6.4% are at increased risk for development of diabetes, and intervention by lifestyle modification may be beneficial. HgbA1c greater or equal to 6.5% is considered diagnostic of diabetes. Performed By: #### 5 5454-3 ####[facility] LABCLIA [id number] [place] [address] [place] Lipid 1996 panelon 4 Cholesterol [Mass/Vol] 119 mg/dL Normal <200 [facility] Comment on above: Order Comment: Karlene men Type: BLOOD SPECIMENOrdering Facility: [facility] Address: [address] [place] [address] Result Comment: <200 mg/dL, Desirable 200-239 mg/dL, Borderline high >239 mg/dL, High Performed By: #### 2 4323-8, 42800-9 ####[facility] LABCLIA [id number] [address] [place] Cholesterol in HDL [Mass/Vol] 34 mg/dL Low >39 [facility] Comment on above: Order Comment: Indyi men Type: BLOOD SPECIMENOrdering Facility: [facility] Address: [address] [place] [address] Result Comment: 40-5 9 mg/dL, Acceptable >59 mg/dL, High: Negative risk factor for coronary heart disease <40 mg/dL, Low: Positive risk factor for coronary heart disease Performed By: #### 2 4323-8, 20521-6 ####[facility] LABCLIA [id number] [address] OF [place] Cholesterol in LDL [Mass/Vol] 59 mg/dL Normal <100 [facility] Comment on above: Order Comment: Speci men Type: BLOOD SPECIMENOrdering Facility: [facility] Address: [address] [place] [address] Result Comment: <100 mg/dL, Optimal 100-129 mg/dL, Near optimal/above optimal 130-159 mg/dL, Borderline high 160-189 mg/dL, High >189 mg/dL, Very high Secondary prevention optimal LDL Cholesterol levels are recommended to be < 70 mg/dL Performed By: #### 2 4323-8, 95533-1 ####[facility] LABCLIA [id number] [place] [address] [place] Cholesterol in LDL/Cholesterol in HDL [Mass ratio] 1.74 {ratio} Normal <2.54 [facility] Comment on above: Order Comment: Indyi men Type: BLOOD SPECIMENOrdering Facility: [facility] Address: [address] [place] [address] Result Comment: Refe rence: 1. National Cholesterol Education Program ATP III Guideline At-A-Glance Quick Desk Reference: National Heart, Lung, and Blood [place]. National Institutes of Health. 2001: NIH Publication No. 01-3305. 2. An International Atherosclerosis Society position paper: global recommendations for the management of dyslipidemia: executive summary, Atherosclerosis. 2014: 232(2):410-413. Performed By: #### 2 4323-8, 68050-9 ####[facility] LABIA [id number] [place] [address] [place] Cholesterol in VLDL [Mass/Vol] 26 mg/dL Normal <30 [facility] Comment on above: Order Comment: Indyi men Type: BLOOD SPECIMENOrdering Facility: [facility] Address: [address] [place] [address] Performed By: #### 2 4323-8, 60070-8 ####[facility] LABCLIA [id number] [place] [address] [place] Cholesterol non HDL [Mass/Vol] 85 mg/dL Normal <130 [facility] Comment on above: Order Comment: Indyi men Type: BLOOD SPECIMENOrdering Facility: [facility] Address: [address] [place] [address] Result Comment: <130 mg/dL, Optimal 130-159 mg/dL, Near optimal/above optimal 160-189 mg/dL, Borderline high 190-219 mg/dL, High >219 mg/dL, Very high Secondary prevention optimal non HDL Cholesterol levels are recommended to be <100 mg/dL Performed By: #### 2 4323-8, 35217-6 ####[facility] LABCLIA [id number] [address] STATES OF [place] Cholesterol.total/Cholest rebecca in HDL [Mass ratio] 3.50 {ratio} Normal <5.10 [facility] Comment on above: Order Comment: Speci men Type: BLOOD SPECIMENOrdering Facility: [facility] Address: [address] [place] [address] Performed By: #### 2 4323-8, 39230-6 ####[facility] LABCLIA [id number] [address] OF [facility] FASTING TIME [address] [facility] Comment on above: Order Comment: Speci men Type: BLOOD SPECIMENOrdering Facility: [facility] Address: [address] [place] [address] Performed By: #### 2 4323-8, ####[facility] LABCLIA [id number] [address] STATES OF [facility] Triglyceride [Mass/Vol] 132 mg/dL Normal <150 [facility] Comment on above: Order Comment: Speci men Type: BLOOD SPECIMENOrdering Facility: [facility] Address: [address] [place] [address] Result Comment: <150 mg/dL, Normal 150-199 mg/dL, Borderline high 200-499 mg/dL, High >499 mg/dL, Very high Performed By: #### 2 4323-8, 39978-2 ####[facility] LABCLIA [id number] [address] [place] CNPNon 11-02-2023 CNPN Telephone (INTMWS) ARMANDSEDA Douglas ([id number]) 1945 M Date Time Provider Department 11/02/23 PRINCE CELESTE INTMWS During your visit today, we recorded the following information about you: Philomena Tatum RN 11/02/2023 3:35 PM Signed Pt called in and was asking about medications changed. Let Pt know that Glipizide was discontinued. Gabapentin was decreased from three times a day to two times a day. Pt had Trazodone added on to take daily at bedtime. Allergies As of Date: 11/02/2023 Noted Allergy Reaction KEFLEX (CEPHALEXIN) 08/09/2007 2 - Rash Comments: Rash and itching.Pt told by to discontinue Keflex immediately. OFLOXACIN 12/12/2013 4 - Hives Comments: ofloxacin ear drops PENICILLINS 12/06/2004 2 - Rash Date Reviewed: 11/01/2023 Reviewed by: Gisselle Craven LPN - Fully Assessed Reason for Visit: Medication questions [Other] Prescriptions as of 11/02/2023 - gabapentin (NEURONTIN) 300 mg capsule Take 1 capsule by mouth two times a day for 90 days. - traZODone (DESYREL) 100 mg tablet Take 1 tablet by mouth daily at bedtime. - sildenafil (VIAGRA) 100 mg tablet Take 1 tablet by mouth once daily as needed (for ED.). - DULoxetine (CYMBALTA) 20 mg capsule Take 1 capsule by mouth once daily. - WVOMYIDM-ZXTBSGYMV-JPR AMETH 3.5 MG/ML-10,000 UNIT/ML-0.1% EYE DROPS - metFORMIN (GLUCOPHAGE) 1,000 mg tablet Take 1 tablet by mouth daily with breakfast. - olopatadine (PATANOL) 0.1 % ophthalmic solution Use 1 Drop in both eyes two times a day as needed (allergies). - atorvastatin (LIPITOR) 40 mg tablet Take 1 tablet by mouth daily at bedtime. For cholesterol. - fexofenadine (SOWMYA ALLERGY) 180 mg tablet Take 1 tablet by mouth once daily. - blood sugar diagnostic (aloomaUCH ULTRA TEST) test strip Test blood sugar(s) 1 times daily. Dx:E11.9 Insulin: no - amLODIPine (NORVASC) 10 mg tablet Take 1 tablet by mouth once daily. Per [facility] - acetaminophen (TYLENOL) 500 mg tablet Take 500 mg by mouth every 8 hours as needed. - diclofenac sodium (VOLTAREN) 1 % topical gel Apply 2 g to affected area three times daily as needed (wrist pain). - Omeprazole Magnesium (PRILOSEC OTC) 20 mg tablet Take 1 tablet by mouth daily before breakfast. 1/2 hr before meal. - nitroglycerin sublingual (NITROQUICK) 0.4 mg SL tablet Dissolve 0.4 mg under the tongue every 5 minutes as needed. - metoprolol tartrate, short acting, (LOPRESSOR) 50 mg tablet Take 1 tablet by mouth twice daily. - tamsulosin (FLOMAX) 0.4 mg Take 1 capsule by mouth daily at bedtime. Dr. Singh. - THERAPEUTIC MULTIVITAMIN TAB Take one(1) tablet daily. 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] 08/29/2007 03/13/2014 Disorders of bursae and tendons in shoulder reg*05/26/2008 03/06/2013 IMPOTENCE, ORGANIC ORIGN [N52.9] 05/26/2008 Coronary atherosclerosis [I25.10] 07/08/2008 Overweight(278.02) [E66.3] 07/15/2008 03/13/2014 Anemia, unspecified [D64.9] 07/20/2008 03/06/2013 GERD (gastroesophageal reflux disease) [K21.9] 02/17/2009 Bladder Cancer [C67.9] 05/20/2009 Osteoarthritis [M19.90] 05/20/2009 Dysuria [R30.0] 09/04/2012 03/06/2013 Right inguinal hernia [K40.90] 12/25/2012 03/06/2013 Lumbago with sciatica, unspecified side [M54.40]03/16/2015 CKD (chronic kidney disease) stage 3, GFR 30-59*06/28/2015 11/07/2021 Acute bilateral low back pain without sciatica *12/01/2015 12/12/2016 Cervicalgia of ggionosc-jtssfpf-dsbae region [M*06/13/2018 Squamous cell cancer of scalp and skin of neck *06/12/2019 Arthritis of hand [M19.049] 01/21/2020 Hypertensive kidney disease with stage 3 chroni*11/03/2021 Insomnia [G47.00] 11/08/2022 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 Subjective Patient presents with: Low Blood Sugar Seda Menchaca is a 77 year old male who started experiencing acute malaise and found his glucose to be significantly low (42). He was instructed on hypoglycemia but continued to have recurring episodes. I advised him to stop glipizide which he did yesterday and his glucose was 128 this morning. His neuralgia was improving. He was only taking gabapentin twice a day. He was scheduled to follow up with ophthalmology in [place] tomorrow. Review of Systems Constitutional: Negative for fatigue. Eyes: Negative for pain and redness. Respiratory: Negative for shortness of breath. Gastrointestinal: Negative for diarrhea, nausea and vomiting. Neurological: Positive for numbness. ACTIVE PROBLEM LIST Essential Hypertension Type 2 Diabetes Mellitus With Stage 3 Chronic Kidney Disease, Without Long-Term Current Use of Insulin ([facility]) Pure Hypercholesterolemia Impotence of Organic Origin Coronary Atherosclerosis Gerd (Gastroesophageal Reflux Disease) Bladder Cancer ([facility]) Osteoarthritis Lumbago With Sciatica, Unspecified Side Cervicalgia of Pacsglvm-Wqhombh-Epglm Region Squamous Cell Cancer of Scalp and Skin of Neck Arthritis of Hand Hypertensive Kidney Disease With Stage 3 Chronic Kidney Disease ([facility]) Insomnia 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 IRZBXCCA-FRTLCDKBO-XAB AMETH 3.5 MG/ML-10,000 UNIT/ML-0.1% EYE DROPS metFORMIN (GLUCOPHAGE) 1,000 mg tablet Take 1 tablet by mouth daily with breakfast. olopatadine (PATANOL) 0.1 % ophthalmic solution Use 1 Drop in both eyes two times a day as needed (allergies). atorvastatin (LIPITOR) 40 mg tablet Take 1 tablet by mouth daily at bedtime. For cholesterol. fexofenadine (SOWMYA ALLERGY) 180 mg tablet Take 1 tablet by mouth once daily. blood sugar diagnostic (aloomaUCH ULTRA TEST) test strip Test blood sugar(s) 1 times daily. Dx:E11.9 Insulin: no amLODIPine (NORVASC) 10 mg tablet Take 1 tablet by mouth once daily. Per [facility] Group acetaminophen (TYLENOL) 500 mg tablet Take 500 mg by mouth every 8 hours as needed. diclofenac sodium (VOLTAREN) 1 % topical gel Apply 2 g to affected area three times daily as needed (wrist pain). Omeprazole Magnesium (PRILOSEC OTC) 20 mg tablet Take 1 tablet by mouth daily before breakfast. 1/2 hr before meal. nitroglycerin sublingual (NITROQUICK) 0.4 mg SL tablet Dissolve 0.4 mg under the tongue every 5 minutes as needed. metoprolol tartrate, short acting, (LOPRESSOR) 50 mg tablet Take 1 tablet by mouth twice daily. tamsulosin (FLOMAX) 0.4 mg Take 1 capsule by mouth daily at bedtime. Dr. Singh. THERAPEUTIC MULTIVITAMIN TAB Take one(1) tablet daily. gabapentin (NEURONTIN) 300 mg capsule Take 1 capsule by mouth two times a day for 90 days. traZODone (DESYREL) 100 mg tablet Take 1 tablet by mouth daily at bedtime. sildenafil (VIAGRA) 100 mg tablet Take 1 tablet by mouth once daily as needed (for ED.). No current facility-administered medications for this visit. Objective BP 112/66 (BP Site: Left Arm, BP Position: Sitting, BP Cuff Size: Large Adult) Pulse 64 Temp 36.7 ?C (98.1 ?F) (Temporal) Resp 16 Wt 63.5 kg (140 lb) BMI 24.03 kg/m? Physical Exam Constitutional: General: He is not in acute distress. Eyes: Extraocular Movements: Extraocular movements intact. Conjunctiva/sclera: Conjunctivae normal. Pulmonary: Effort: Pulmonary effort is normal. Skin: Findings: No erythema or rash. Neurological: General: No focal deficit present. Mental Status: He is alert. Assessment and Plan 1. Hypoglycemia - ICD9: 251.2, ICD10: E16.2 (primary diagnosis) - We discussed remedies. Expect improvement with discontinuation of GLIPIZIDE ER 2. 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 - GABAPENTIN 300 MG CAPSULE 3. Type 2 diabetes mellitus with stage 3a chronic kidney disease, without long-term current use of insulin ([facility]) - ICD9: 250.40, 585.3, ICD10: E11.22, N18.31 - Worsening control - See #1. 4. Insomnia, unspecified type - ICD9: 780.52, ICD10: G47.00 Controlled, refilled. - TRAZODONE 100 MG TABLET 5. 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 He gets this online. (more content not included)... Normal [facility] 10[facility]30[facility]2023 [facility] SED[facility] MENCHACA ([id number]) 1945 M Date Time Provider Department 10/30/23 PRINCE CELESTE [facility] During your visit today, we recorded the following information about you: Cindi Siu LPN 10/30/2023 4:48 PM Signed Pt calls again today to report his blood sugar dropped to 42. Pt reports he got up at 10:30, ate a bowl of cereal (cheerios or rice krispies), took diabetic meds, went back to bed. Rechecked bs because he felt lightheaded and it was 42. Drank Pepsi and ate mini muffins and bs nhung to 132. Tried to explain to pt about the need to eat food with more protein and less carbs and sugar. Tried to schedule appt for tomorrow with pcp. 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 Pt scheduled with pcp for 10/31 @ 4:20. Pt advised to check sugars more often then twice a day until appt. Call office with blood sugar readings. ANGELA Yeager Victor H, MD 10/31/2023 1:00 AM Signed Stop GLIPIZIDE XL 2.5 mg once daily. We'll see him soon. Gisselle Craven LPN 10/31/2023 8:24 AM Signed Left message to call AND speak to nurse. Merna Arroyo LPN, LPN 10/31/2023 9:50 AM Signed Spoke with pt and information listed below given. Pt verbalizes understanding. Merna Austin LPN Allergies As of Date: 10/30/2023 Noted Allergy Reaction KEFLEX (CEPHALEXIN) 08/09/2007 2 - Rash Comments: Rash and itching.Pt told by to discontinue Keflex immediately. OFLOXACIN 12/12/2013 4 - Hives Comments: ofloxacin ear drops PENICILLINS 12/06/2004 2 - Rash Date Reviewed: 09/17/2023 Reviewed by: Ruth Barrera MA - Fully Assessed Reason for Visit: low blood sugars [Other] Prescriptions as of 10/31/2023 - DULoxetine (CYMBALTA) 20 mg capsule Take 1 capsule by mouth once daily. - gabapentin (NEURONTIN) 300 mg capsule Take 1 capsule by mouth three times a day for 90 days. - KTGZSSQW-EKZGBWIKK-VRY AMETH 3.5 MG/ML-10,000 UNIT/ML-0.1% EYE DROPS - metFORMIN (GLUCOPHAGE) 1,000 mg tablet Take 1 tablet by mouth daily with breakfast. - olopatadine (PATANOL) 0.1 % ophthalmic solution Use 1 Drop in both eyes two times a day as needed (allergies). - atorvastatin (LIPITOR) 40 mg tablet Take 1 tablet by mouth daily at bedtime. For cholesterol. - fexofenadine (SOWMYA ALLERGY) 180 mg tablet Take 1 tablet by mouth once daily. - blood sugar diagnostic (aloomaUCH ULTRA TEST) test strip Test blood sugar(s) 1 times daily. Dx:E11.9 Insulin: no - traZODone (DESYREL) 100 mg tablet Take 1 tablet by mouth daily at bedtime. - glipiZIDE (GLUCOTROL XL) 2.5 mg 24 hr tablet Take 1 tablet by mouth every morning. - sildenafil (VIAGRA) 100 mg tablet Take 1 tablet by mouth once daily as needed (for ED.). - amLODIPine (NORVASC) 10 mg tablet Take 1 tablet by mouth once daily. Per [facility] - acetaminophen (TYLENOL) 500 mg tablet Take 500 mg by mouth every 8 hours as needed. - diclofenac sodium (VOLTAREN) 1 % topical gel Apply 2 g to affected area three times daily as needed (wrist pain). - Omeprazole Magnesium (PRILOSEC OTC) 20 mg tablet Take 1 tablet by mouth daily before breakfast. 1/2 hr before meal. - nitroglycerin sublingual (NITROQUICK) 0.4 mg SL tablet Dissolve 0.4 mg under the tongue every 5 minutes as needed. - metoprolol tartrate, short acting, (LOPRESSOR) 50 mg tablet Take 1 tablet by mouth twice daily. - tamsulosin (FLOMAX) 0.4 mg Take 1 capsule by mouth daily at bedtime. Dr. Singh. - THERAPEUTIC MULTIVITAMIN TAB Take one(1) tablet daily. 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] 08/29/2007 03/13/2014 Disorders of bursae and tendons in shoulder reg*05/26/2008 03/06/2013 IMPOTENCE, ORGANIC ORIGN [N52.9] 05/26/2008 Coronary atherosclerosis [I25.10] 07/08/2008 Overweight(278.02) [E66.3] 07/15/2008 03/13/2014 Anemia, unspecified [D64.9] 07/20/2008 03/06/2013 GERD (gastroesophageal reflux disease) [K21.9] 02/17/2009 Bladder Cancer [C67.9] 05/20/2009 Osteoarthritis [M19.90] 05/20/2009 Dysuria [R30.0] 09/04/2012 03/06/2013 Right inguinal hernia [K40.90] 12/25/2012 03/06/2013 Lumbago with sciatica, unspecified side [M54.40]03/16/2015 CKD (chronic kidney disease) stage 3, GFR 30-59*06/28/2015 11/07/2021 Acute bilateral low back pain without sciatica *12/01/2015 12/12/2016 Cervicalgia of usxfzyro-fuqljnp-prrsp region [M*06/13/2018 Squamous cell cancer of scalp and skin of neck *06/12/2019 Arthritis of hand [M19.049] 01/21/2020 Hypertensive kidney disease with stage 3 chroni*11/03/2021 Insomnia [G47.00] 11/08/2022 Post zoster neuralgia [B02.29] 07/25/2023 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 Normal [facility] CNPNon 10-29-[address] [facility] Telephone (INTMWS) SEDA MENCHACA ([id number]) 1945 M Date Time Provider Department 10/29/23 PRINCE CELESTE INTMWS During your visit today, we recorded the following information about you: Harika Richardson LPN 10/29/2023 3:53 PM Signed Patient calling said his medications have been messing up past few days. Patient said he woke up yesterday blood sugar was 108 and he ate his cereal at 1030 am and took his metformin and glipizide. Laid down for a nap and got up at 230 pm his blood sugar was 52, he felt light headed. He drank cup of pepsi and blood sugar was up in the 90's. He ate some jello, and sandwich. For supper he ate chicken and abigail abigail's and pizza. Today he got up blood sugar was 108, ate cereal and sat up an hour and took a nap again woke up at 200 pm and blood sugar was 62. He had not eaten lunch again. Explained to patient that he needs to eat breakfast, lunch and dinner so his blood sugars stay in good range, not skipping meals and having lows, be more consistent with three meals. He said he would work on doing that. Aware has appt 11/12/2023 with PCP. Prince Celeste MD 10/29/2023 4:18 PM Signed I agree. Allergies As of Date: 10/29/2023 Noted Allergy Reaction KEFLEX (CEPHALEXIN) 08/09/2007 2 - Rash Comments: Rash and itching.Pt told by to discontinue Keflex immediately. OFLOXACIN 12/12/2013 4 - Hives Comments: ofloxacin ear drops PENICILLINS 12/06/2004 2 - Rash Date Reviewed: 09/17/2023 Reviewed by: Ruth Barrera MA - Fully Assessed Reason for Visit: Patient Update [1234] Prescriptions as of 10/29/2023 - DULoxetine (CYMBALTA) 20 mg capsule Take 1 capsule by mouth once daily. - gabapentin (NEURONTIN) 300 mg capsule Take 1 capsule by mouth three times a day for 90 days. - FSVYPURG-XVRTXNQET-DYF AMETH 3.5 MG/ML-10,000 UNIT/ML-0.1% EYE DROPS - metFORMIN (GLUCOPHAGE) 1,000 mg tablet Take 1 tablet by mouth daily with breakfast. - olopatadine (PATANOL) 0.1 % ophthalmic solution Use 1 Drop in both eyes two times a day as needed (allergies). - atorvastatin (LIPITOR) 40 mg tablet Take 1 tablet by mouth daily at bedtime. For cholesterol. - fexofenadine (SOWMYA ALLERGY) 180 mg tablet Take 1 tablet by mouth once daily. - blood sugar diagnostic ([place] ULTRA TEST) test strip Test blood sugar(s) 1 times daily. Dx:E11.9 Insulin: no - traZODone (DESYREL) 100 mg tablet Take 1 tablet by mouth daily at bedtime. - glipiZIDE (GLUCOTROL XL) 2.5 mg 24 hr tablet Take 1 tablet by mouth every morning. - sildenafil (VIAGRA) 100 mg tablet Take 1 tablet by mouth once daily as needed (for ED.). - amLODIPine (NORVASC) 10 mg tablet Take 1 tablet by mouth once daily. Per [facility] Group - acetaminophen (TYLENOL) 500 mg tablet Take 500 mg by mouth every 8 hours as needed. - diclofenac sodium (VOLTAREN) 1 % topical gel Apply 2 g to affected area three times daily as needed (wrist pain). - Omeprazole Magnesium (PRILOSEC OTC) 20 mg tablet Take 1 tablet by mouth daily before breakfast. 1/2 hr before meal. - nitroglycerin sublingual (NITROQUICK) 0.4 mg SL tablet Dissolve 0.4 mg under the tongue every 5 minutes as needed. - metoprolol tartrate, short acting, (LOPRESSOR) 50 mg tablet Take 1 tablet by mouth twice daily. - tamsulosin (FLOMAX) 0.4 mg Take 1 capsule by mouth daily at bedtime. Dr. Singh. - THERAPEUTIC MULTIVITAMIN TAB Take one(1) tablet daily. 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] 08/29/2007 03/13/2014 Disorders of bursae and tendons in shoulder reg*05/26/2008 03/06/2013 IMPOTENCE, ORGANIC ORIGN [N52.9] 05/26/2008 Coronary atherosclerosis [I25.10] 07/08/2008 Overweight(278.02) [E66.3] 07/15/2008 03/13/2014 Anemia, unspecified [D64.9] 07/20/2008 03/06/2013 GERD (gastroesophageal reflux disease) [K21.9] 02/17/2009 Bladder Cancer [C67.9] 05/20/2009 Osteoarthritis [M19.90] 05/20/2009 Dysuria [R30.0] 09/04/2012 03/06/2013 Right inguinal hernia [K40.90] 12/25/2012 03/06/2013 Lumbago with sciatica, unspecified side [M54.40]03/16/2015 CKD (chronic kidney disease) stage 3, GFR 30-59*06/28/2015 11/07/2021 Acute bilateral low back pain without sciatica *12/01/2015 12/12/2016 Cervicalgia of snaseewx-idvlqvo-emdao region [M*06/13/2018 Squamous cell cancer of scalp and skin of neck *06/12/2019 Arthritis of hand [M19.049] 01/21/2020 Hypertensive kidney disease with stage 3 chroni*11/03/2021 Insomnia [G47.00] 11/08/2022 Post zoster neuralgia [B02.29] 07/25/2023 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 He states the provider told him he would need to get off a could medications in order to drive though. He said he take the Gabapentin TID, he was asking if he could drop down to daily. Then the Duloxetine he was asking if he could come off of, I said maybe the provider would be ok with him taking that at HS and he would still be able to drive. Please call and advise. Juanis Hawthorne APRN.JAYY 10/03/2023 10:28 AM Signed This will need to wait until Dr. Celeste returns to the office Junais Hawthorne APRN.Philomena Spencer RN 10/03/2023 11:06 AM Signed Pt called and is notified of providers message. Pt voices understanding. Let him know Dr Celeste is back in on Sunday10/08/23. EVELINA Burrell Victor H, MD 10/03/2023 10:14 PM Signed 1) Continue duloxetine for now. 2) Decrease gabapentin to 300 mg twice a day for 7 days, then reduce to 300 mg at bedtime and stay on that dose until his follow up next month. Philomena Tatum RN 10/04/2023 10:17 AM Signed Called and left a voicemail for the Patient to call back and ask for a nurse to receive the providers message. EVELINA Burrell Stephanie, RN 10/04/2023 11:43 AM Signed Patient notified of provider's instructions. Patient verbalizes understanding. Patient asking if he can drive now? Patient states that he is going to drive. EVELINA Anne LPN, Kim E 10/04/2023 12:47 PM Signed PATIENT phoned in again stating that he forgot to tell the other nurse about the special eye glasses that gave him to drive. Patient again instructed on the recommendations that gave and will be seen next month-October. Please review and advise Jolene Cornejo LPN, LPN 10/05/2023 10:30 AM Signed Patient called again to see if PCP had said if it was ok for him to drive. Philomena Tatum RN 10/05/2023 1:45 PM Signed Pt called in and asked if provider said it was ok for him to drive. I reiterated his message about the medications: 1) Continue duloxetine for now. 2) Decrease gabapentin to 300 mg twice a day for 7 days, then reduce to 300 mg at bedtime and stay on that dose until his follow up next month. I told him that it did not say anything about if he could drive or not, and that they had sent the message to the provider but he had not responded. Prince Celeste MD 10/05/2023 7:43 PM Signed Driving restrictions came from his eye specialists, so if his eye specialists released him to resume driving, he should be good. I am not sure what he understood or misunderstood about the medications, but cutting back on gabapentin may help reduce his risk from accidents IF he was having side effects like sedation or dizziness. Natalie Mauricio RN 10/08/2023 9:53 AM Signed Patient calls and notified of below. Patient voiced understanding. Natalie Mauricio RN Allergies As of Date: 10/03/2023 Noted Allergy Reaction KEFLEX (CEPHALEXIN) 08/09/2007 2 - Rash Comments: Rash and itching.Pt told by to discontinue Keflex immediately. OFLOXACIN 12/12/2013 4 - Hives Comments: ofloxacin ear drops PENICILLINS 12/06/2004 2 - Rash Date Reviewed: 09/17/2023 Reviewed by: Ruth Barrera MA - Fully Assessed Reason for Visit: Medication Question [8428] Prescriptions as of 10/08/2023 - DULoxetine (CYMBALTA) 20 mg capsule Take 1 capsule by mouth once daily. - gabapentin (NEURONTIN) 300 mg capsule Take 1 capsule by mouth three times a day for 90 days. - VDLJJIAX-YSAGDOOSI-GJB AMETH 3.5 MG/ML-10,000 UNIT/ML-0.1% EYE DROPS - metFORMIN (GLUCOPHAGE) 1,000 mg tablet Take 1 tablet by mouth daily with breakfast. - olopatadine (PATANOL) 0.1 % ophthalmic solution Use 1 Drop in both eyes two times a day as needed (allergies). - atorvastatin (LIPITOR) 40 mg tablet Take 1 tablet by mouth daily at bedtime. For cholesterol. - fexofenadine (SOWMYA ALLERGY) 180 mg tablet Take 1 tablet by mouth once daily. - blood sugar diagnostic ([employer] ULTRA TEST) test strip Test blood sugar(s) 1 times daily. Dx:E11.9 Insulin: no - traZODone (DESYREL) 100 mg tablet Take 1 tablet by mouth daily at bedtime. - glipiZIDE (GLUCOTROL XL) 2.5 mg 24 hr tablet Take 1 tablet by mouth every morning. - sildenafil (VIAGRA) 100 mg tablet Take 1 tablet by mouth once daily as needed (for ED.). - amLODIPine (NORVASC) 10 mg tablet Take 1 tablet by mouth once daily. [facility] - acetaminophen (TYLENOL) 500 mg tablet Take 500 mg by mout (more content not included)... Normal [facility] 09-18-[address] [facility] Telephone ([facility]) SEDA MENCHACA ([id number]) 1945 M Date Time Provider Department 09/18/23 NICHOL GLORIA [facility] During your visit today, we recorded the following information about you: Nichol Gloria PA 09/18/2023 11:20 AM Signed I called patient to discuss results. He did not answer, left a voicemail. If patient returns call, please let him know that XR of the toe did not reveal fracture. Follow-up with podiatry as discussed at visit. Colton Baer MA 09/18/2023 11:43 AM Signed Patient returned call, notified of results, verbalized understanding of instructions given. Colton Baer MA Allergies As of Date: 09/18/2023 Noted Allergy Reaction KEFLEX (CEPHALEXIN) 08/09/2007 2 - Rash Comments: Rash and itching.Pt told by to discontinue Keflex immediately. OFLOXACIN 12/12/2013 4 - Hives Comments: ofloxacin ear drops PENICILLINS 12/06/2004 2 - Rash Date Reviewed: 09/17/2023 Reviewed by: Ruth Barrera MA - Fully Assessed Reason for Visit: Results [95] Prescriptions as of 09/18/2023 - DULoxetine (CYMBALTA) 20 mg capsule Take 1 capsule by mouth once daily. - gabapentin (NEURONTIN) 300 mg capsule Take 1 capsule by mouth three times a day for 90 days. - KUCPJUGM-KNFJGTWUT-DPC AMETH 3.5 MG/ML-10,000 UNIT/ML-0.1% EYE DROPS - metFORMIN (GLUCOPHAGE) 1,000 mg tablet Take 1 tablet by mouth daily with breakfast. - olopatadine (PATANOL) 0.1 % ophthalmic solution Use 1 Drop in both eyes two times a day as needed (allergies). - atorvastatin (LIPITOR) 40 mg tablet Take 1 tablet by mouth daily at bedtime. For cholesterol. - fexofenadine (SOWMYA ALLERGY) 180 mg tablet Take 1 tablet by mouth once daily. - blood sugar diagnostic ([employer]CH ULTRA TEST) test strip Test blood sugar(s) 1 times daily. Dx:E11.9 Insulin: no - traZODone (DESYREL) 100 mg tablet Take 1 tablet by mouth daily at bedtime. - glipiZIDE (GLUCOTROL XL) 2.5 mg 24 hr tablet Take 1 tablet by mouth every morning. - sildenafil (VIAGRA) 100 mg tablet Take 1 tablet by mouth once daily as needed (for ED.). - amLODIPine (NORVASC) 10 mg tablet Take 1 tablet by mouth once daily. [facility] - acetaminophen (TYLENOL) 500 mg tablet Take 500 mg by mouth every 8 hours as needed. - diclofenac sodium (VOLTAREN) 1 % topical gel Apply 2 g to affected area three times daily as needed (wrist pain). - Omeprazole Magnesium (PRILOSEC OTC) 20 mg tablet Take 1 tablet by mouth daily before breakfast. 1/2 hr before meal. - nitroglycerin sublingual (NITROQUICK) 0.4 mg SL tablet Dissolve 0.4 mg under the tongue every 5 minutes as needed. - metoprolol tartrate, short acting, (LOPRESSOR) 50 mg tablet Take 1 tablet by mouth twice daily. - tamsulosin (FLOMAX) 0.4 mg Take 1 capsule by mouth daily at bedtime. Dr. Singh. - THERAPEUTIC MULTIVITAMIN TAB Take one(1) tablet daily. 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] 08/29/2007 03/13/2014 Disorders of bursae and tendons in shoulder reg*05/26/2008 03/06/2013 IMPOTENCE, ORGANIC ORIGN [N52.9] 05/26/2008 Coronary atherosclerosis [I25.10] 07/08/2008 Overweight(278.02) [E66.3] 07/15/2008 03/13/2014 Anemia, unspecified [D64.9] 07/20/2008 03/06/2013 GERD (gastroesophageal reflux disease) [K21.9] 02/17/2009 Bladder Cancer [C67.9] 05/20/2009 Osteoarthritis [M19.90] 05/20/2009 Dysuria [R30.0] 09/04/2012 03/06/2013 Right inguinal hernia [K40.90] 12/25/2012 03/06/2013 Lumbago with sciatica, unspecified side [M54.40]03/16/2015 CKD (chronic kidney disease) stage 3, GFR 30-59*06/28/2015 11/07/2021 Acute bilateral low back pain without sciatica *12/01/2015 12/12/2016 Cervicalgia of hswxkgqd-omvhnsi-ibetl region [M*06/13/2018 Squamous cell cancer of scalp and skin of neck *06/12/2019 Arthritis of hand [M19.049] 01/21/2020 Hypertensive kidney disease with stage 3 chroni*11/03/2021 Insomnia [G47.00] 11/08/2022 Post zoster neuralgia [B02.29] 07/25/2023 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 XR TOE 3V AP/LAT/OBL RTon XR TOE 3V AP/LAT/OBL RT * * *Final Repor t* * * DATE OF EXAM: Sep 18 2023 11:10AM WOX [id number] - XR TOE 3V AP/LAT/OBL RT / PROCEDURE REASON: Contusion of right great toe with damage to nail, initial encounter * * * * Physician Interpretation * * * * EXAM(s): XR TOE 3V AP/LAT/OBL RT..... HISTORY: 77 years old Clinical information: Contusion of right great toe with damage to nail, initial encounter dropped something on his right grt toe a week ago and nail is bleeding and looks like it may come off, hx of diabetes also TECHNIQUE: Images: XR TOE 3V AP/LAT/OBL RT Comparison: 04/20/2022. RESULT: Findings: Moderate soft tissue swelling over the distal end of the distal phalanx of the great toe. Marked narrowing of the first metatarsal phalangeal joint No fractures or dislocations are seen. IMPRESSION: Soft tissue swelling. No bony abnormality identified Nurse College: [employer] Transcribe Date/Time: Sep 18 2023 11:10A Dictated by : ALLA AGUIRRE DO This examination was interpreted and the report reviewed and electronically signed by: ALLA AGUIRRE DO on Sep 18 2023 11:11AM EST [id number] Normal [facility] XR Toes - right 3 Viewson IMPRESSION: Soft tissue swelling. No bony abnormality identified Nurse College: [employer]DA Transcribe Date/Time: Sep 18 2023 11:10A Dictated by : ALLA AGUIRRE DO This examination was interpreted and the report reviewed and electronically signed by: ALLA AGUIRRE DO on Sep 18 2023 11:11AM [facility] DIVISION OF RADIOLOGY * * *Final Report* * * DATE OF EXAM: Sep 18 2023 11:10AM WOX [id number] - XR TOE 3V AP/LAT/OBL RT / PROCEDURE REASON: Contusion of right great toe with damage to nail, initial encounter * * * * Physician Interpretation * * * * EXAM(s): XR TOE 3V AP/LAT/OBL RT..... HISTORY: 77 years old Clinical information: Contusion of right great toe with damage to nail, initial encounter dropped something on his right grt toe a week ago and nail is bleeding and looks like it may come off, hx of diabetes also TECHNIQUE: Images: XR TOE 3V AP/LAT/OBL RT Comparison: 04/20/2022. RESULT: Findings: Moderate soft tissue swelling over the distal end of the distal phalanx of the great toe. Marked narrowing of the first metatarsal phalangeal joint No fractures or dislocations are seen. DIVISION OF RADIOLOGY Provider, [facility] - 09/18/2023 * * *Final Report* * * DATE OF EXAM: Sep 18 2023 11:10AM WOX 5269 - XR TOE 3V AP/LAT/OBL RT / PROCEDURE REASON: Contusion of right great toe with damage to nail, initial encounter * * * * Physician Interpretation * * * * EXAM(s): XR TOE 3V AP/LAT/OBL RT..... HISTORY: 77 years old Clinical information: Contusion of right great toe with damage to nail, initial encounter dropped something on his right grt toe a week ago and nail is bleeding and looks like it may come off, hx of diabetes also TECHNIQUE: Images: XR TOE 3V AP/LAT/OBL RT Comparison: 04/20/2022. RESULT: Findings: Moderate soft tissue swelling over the distal end of the distal phalanx of the great toe. Marked narrowing of the first metatarsal phalangeal joint No fractures or dislocations are seen. IMPRESSION IMPRESSION: Soft tissue swelling. No bony abnormality identified Nurse College: [employer]el Transcribe Date/Time: Sep 18 2023 11:10A Dictated by : ALLA AGUIRRE DO This examination was interpreted and the report reviewed and electronically signed by: ALLA AGUIRRE DO on Sep 18 2023 11:11AM EST [facility] Radiology Study observation (narrative) Casey andujar [facility] XR Toes - right 3 ViewsOrder ed By: [facility] Provider on 09-18-2023 [facility] CNOVon 09-17-2023 CNOV Office Visit (UCWSTR ) SEDA MENCHACA ([id number]) 1945 M Date Time Provider Department 09/17/23 3:15 PM SHAINA DALY [facility] During your visit today, we recorded the following information about you: Temperature Pulse Respiration Blood pressure 97.8 degrees 70/minute 16/minute 120/60 Weight 64.6 kg Shaina Daly APRN.TEXTILE PIN WORKER 09/17/2023 3:27 PM Signed This note was created using NoteWriter. Subjective Seda Menchaca is a 77 year old male. 77 year old male with PMH HTN, CKD, GERD presents for toe complaints. Right great toe Acute onset one week ago Endorses that he dropped a wrench onto his great toe +black and blue toe nail +pain States that he was cutting his nails this morning States blood shot out of his great toe with clipping Bleeding has since resolved Sent in by nurse triage Hx: DM Denies prior history of foot fracture Dr. Tang is his budget manager The history is provided by the patient. No bus steward was used. Pain (foot) Pain location: right great toe. This is a new problem. The current episode started 1 to 4 weeks ago. There has been a history of trauma. The problem occurs constantly. The problem has been unchanged. The quality of the pain is described as sharp and aching. The pain is at a severity of 6/10. The pain is moderate. Pertinent negatives include no fever, inability to bear weight, itching, joint locking, joint swelling, limited range of motion, numbness, stiffness or tingling. The symptoms are aggravated by activity. He has tried nothing for the symptoms. The treatment provided no relief. Family history does not include gout or rheumatoid arthritis. His past medical history is significant for diabetes. There is no history of gout, osteoarthritis or rheumatoid arthritis. 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 Singh. CORONARY ATHEROSCLER UNSPEC VESSEL 07/08/2008 Dr. Markham[facility]. 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 Terrazas, [facility]. Type II or unspecified type diabetes mellitus without mention of complication, not stated as uncontrolled 12/06/2004 Unspecified essential hypertension 12/06/2004 PAST SURGICAL HISTORY Procedure Laterality Date COLONOSCOPY FLX DX W/COLLJ SPEC WHEN PFRMD 03/25/2004 Colonoscopy COLONOSCOPY FLX DX W/COLLJ SPEC WHEN PFRMD 04/07/2016 normal 10 year follow up CORONARY ARTERY BYP W/VEIN AND ARTERY GRAFT 4 VEIN CABG, 5 vessel CYSTO W/REMOVAL OF TUMORS SMALL 04/21/2009 Excision bladder tumor CYSTOURETHROSCOPY Cystoscopy annually last 2017 DIABETES with stage 3 kidney disease ESOPHAGOGASTRODUODENOS COPY TRANSORAL DIAGNOSTIC 03/25/2004 EGD LEFT HEART CATH 05/12/2014 Left ventriculogram, coronary arteriography, SVG angiography, SALLY arteriography LEFT HEART CATH,PERCUTANEOUS 06/2009 Cardiac cath, L heart PAST SURGICAL HISTORY OF 11/21/2005 excision lymph node right side neck PAST SURGICAL HISTORY OF 1967 Left forearm ORIF fracture. REVISE MEDIAN N/CARPAL TUNNEL SURG Right 06/09/2021 Right carpal tunnel release RPR 1ST INGUN HRNA AGE 5 YRS/> REDUCIBLE 2000 Hernia repair, inguinal RPR 1ST INGUN HRNA AGE 5 YRS/> REDUCIBLE 12/17/2012 Hernia repair, inguinal SKIN BIOPSY HX TONSILLECTOMY AND ADENOIDECTOMY ALLERGIES Keflex [Cephalexin], Ofloxacin, and Penicillins MEDICATIONS DULoxetine (CYMBALTA) 20 mg capsule Take 1 capsule by mouth once daily. gabapentin (NEURONTIN) 300 mg capsule Take 1 capsule by mouth three times a day for 90 days. OKTZPFBE-UAGFSTXIR-JBW AMETH 3.5 MG/ML-10,000 UNIT/ML-0.1% EYE DROPS metFORMIN (GLUCOPHAGE) 1,000 mg tablet Take 1 tablet by mouth daily with breakfast. olopatadine (PATANOL) 0.1 % ophthalmic solution Use 1 Drop in both eyes two times a day as needed (allergies). atorvastatin (LIPITOR) 40 mg tablet Take 1 tablet by mouth daily at bedtime. For cholesterol. fexofenadine (SOWMYA ALLERGY) 180 mg tablet Take 1 tablet by mouth once daily. blood sugar diagnostic (Ikonopedia[employer]OUCH ULTRA TEST) test strip Test blood sugar(s) 1 times daily. Dx:E11.9 Insulin: no traZODone (DESYREL) 100 mg tab (more content not included)... [facility] Basophil percentageOrdered B y: Yeison Crouch on 08-13-2023 Basophil percentage 3.1 mg/dL 2.5-4.9 [facility] Bilirubin [Mass/Vol] 0.50 mg/dL 0.20-1.00 [facility] Comment on above: For patients on eltr ombopag therapy, use of [employer] TBIL is not recommended. Chloride [Moles/Vol] 102 mmol/L 98-107 [facility] Cholesterol [Mass/Vol] 114 mg/dL <200 [facility] Comment on above: <200 mg/dL Desirable 200-240 mg/dL Borderline >240 mg/dL High Risk Glucose [Mass/Vol] 141 mg/dL 74-106 [facility] Comment on above: Fasting Glucose resu lt greater than or equal to 126 mg/dL suggests DIABETES MELLITUS per A.D.A. criteria. Potassium [Moles/Vol] 4.3 mmol/L 3.5-5.1 [place] Protein [Mass/Vol] 7.1 g/dL 6.4-8.2 [facility] Sodium [Moles/Vol] 137 mmol/L 136-145 [facility] Triglyceride [Mass/Vol] 143 mg/dL <199 [facility] Comment on above: The drugs N-Acetylcy steine and Metamizole may falsely depress this assay.Serum Triglycerides Reference Interval Normal <150 mg/dL Borderline high 150 - 199 mg/dL High 200 - 499 mg/dL Very High > or = 500 mg/dL Direct bilirubinOrdered By: Yeison Crouch on 08-13-2023 Bilirubin.direct [Mass/Vol] 0.11 mg/dL 0.00-0.30 [facility] Laboratory - Chemistry and C hemistry - challengeOrdered By: Yeison Crouch on 08-13-2023 ALP [Catalytic activity/Vol] 52 U/L 45-117 [facility] ALT [Catalytic activity/Vol] 28 U/L 16-61 [facility] Cholesterol in HDL [Mass/Vol] 36 mg/dL >40 [facility] Comment on above: The drugs N-Acetylcy steine and Metamizole may falsely depress this assay. Reference Range HDL <40 mg/dL Low HDL Cholesterol HDL >or= 60 mg/dL High HDL Cholesterol Cholesterol in LDL [Mass/Vol] 49 mg/dL 0-130 [facility] CO2 [Moles/Vol] 30.0 mmol/L 21.0-32.0 [facility] Globulin (S) [Mass/Vol] 3.5 g/dL 2.2-4.2 [facility] Urea nitrogen/Creatinine [Mass ratio] 14.0 mg/mg 10-20 [facility] No Panel InformationOrdered By: Yeison Crouch on 08-13-2023 Estimated GFR (MDRD) Amer 48 mL/min >60 [facility] Comment on above: GFR Calc Estimated GFR (MDRD) Non-Af Amer 40 mL/min >60 [facility] Comment on above: Non- GFR Calc VLDL Cholesterol 29 mg/dL 5-40 [facility] Serum or plasma calcium marion urement (mass/volume)Ordered By: Yeison Crouch on 08-13-2023 Calcium [Mass/Vol] 9.0 mg/dL 8.5-10.1 [facility] Serum or plasma creatinine m easurement (mass/volume)Ordered By: Yeison Crouch on 08-13-2023 Creatinine [Mass/Vol] 1.78 mg/dL 0.70-1.30 [place] Comment on above: The validity of the calculated GFR & GFRAA in patients over 70 years has not been determined. Clinical correlation is essential. Serum or plasma urea nitroge n measurement (mass/volume)Ordered By: Yeison Crouch on 08-13-2023 Urea nitrogen [Mass/Vol] 25 mg/dL 7-18 [facility] Thin prep Papanicolaou smear with manual screeningOrdered By: Yeison Crouch on 08-13-2023 Thin prep Papanicolaou smear with manual screening 3.6 g/dL 3.2-5.0 [facility] Thin prep Papanicolaou smear with manual screening 21 U/L 15-37 [facility] Thin prep Papanicolaou smear with manual screening 5 5-15 [facility] Absolute lymphocyte countOrd ered By: Reynaldo Yin on 07-18-2023 Lymphocytes Auto (Unsp spec) [#/Vol] 2.64 10*3/uL 0.83-4.51 [facility] Automated lymphocyte count a s percentage of total leukocytesOrdered By: Reynaldo Yin on 07-18-2023 Lymphocytes/100 WBC Auto (Unsp spec) 23.2 % 19-41 [facility] Basophil percentageOrdered B y: Reynaldo Yin on 07-18-2023 Basophils/100 WBC (Bld) 0.6 % 0-1 [facility] Chloride [Moles/Vol] 103 mmol/L 98-107 [facility] Eosinophils/100 WBC (Bld) 0.7 % 0-5 [facility] Glucose [Mass/Vol] 151 mg/dL 74-106 [facility] Comment on above: Fasting Glucose resu lt greater than or equal to 126 mg/dL suggests DIABETES MELLITUS per A.D.A. criteria. Hemoglobin (Bld) [Mass/Vol] 14.1 g/dL 13.0-16.5 [facility] Monocytes/100 WBC (Bld) 9.1 % 0-10 [facility] Neutrophils (Bld) [#/Vol] 7.5 10*3/uL 2.0-7.7 [facility] Neutrophils/100 WBC (Bld) 66.0 % 47-70 [facility] Potassium [Moles/Vol] 3.3 mmol/L 3.5-5.1 [place] Sodium [Moles/Vol] 138 mmol/L 136-145 [facility] WBC (Bld) [#/Vol] 11.4 10*3/uL 4.4-11.0 [facility] Determination of erythrocyte mean corpuscular volume (MCV)Ordered By: Reynaldo Yin on 07-18-2023 MCV (RBC) [Entitic vol] 92.2 fL 80-94 [facility] Erythrocyte distribution wid th ratioOrdered By: Reynaldo Yin on 07-18-2023 Erythrocyte distribution width (RBC) [Ratio] 13.6 % 11.6-14.6 [facility] Erythrocyte distribution wid th standard deviationOrdered By: Reynaldo Yin on 07-18-2023 Erythrocyte distribution width (RBC) [Entitic vol] 46.5 fL 35.1-43.9 [facility] Hematocrit Auto (Bld) [Volum e fraction]Ordered By: Reynaldo Yin on 07-18-2023 Hematocrit (Bld) [Volume fraction] 42.5 % 40-54 [facility] Immature granulocytes/100 WB C Auto (Bld)Ordered By: Reynaldo Yin on 07-18-2023 Immature granulocytes/100 WBC (Bld) 0.400 % 0.0-0.9 [facility] Comment on above: IG% - Immature Granu locytes (promyelocytes, myelocytes and metamyelocytes) > 1% indicates that a LEFT SHIFT is Present. Laboratory - Chemistry and C hemistry - challengeOrdered By: Reynaldo Yin on 07-18-2023 CO2 [Moles/Vol] 28.0 mmol/L 21.0-32.0 [facility] Urea nitrogen/Creatinine [Mass ratio] 15.9 mg/mg 10-20 [facility] Laboratory - Hematology and Cell countsOrdered By: Reynaldo Yin on 03-27-2024 MCH (RBC) [Entitic mass] 30.6 pg 27.0-32.0 [facility] MCHC (RBC) [Mass/Vol] 33.2 g/dL 32-36 [place] Nucleated RBC/100 WBC (Bld) [Ratio] 0 % 0-5 [facility] Platelet mean volume (Bld) [Entitic vol] 10.6 fL 6.2-12.0 [facility] Platelets (Bld) [#/Vol] 286 10*3/uL 150-450 [facility] No Panel InformationOrdered By: Reynaldo Yin on 07-18-2023 Estimated Creatinine Clearance Calc 37.11 ml/min [facility] Estimated GFR (MDRD) Amer 61 mL/min >60 [facility] Comment on above: GFR Calc Estimated GFR (MDRD) Non-Af Amer 50 mL/min >60 [facility] Comment on above: Non- GFR Calc RBC Auto (Bld) [#/Vol]Ordere d By: Reynaldo Yin on 07-18-2023 RBC (Bld) [#/Vol] 4.61 10*6/uL 4.6-6.2 [facility] Serum or plasma calcium marion urement (mass/volume)Ordered By: Reynaldo Yin on 07-18-2023 Calcium [Mass/Vol] 9.3 mg/dL 8.5-10.1 [facility] Serum or plasma creatinine m easurement (mass/volume)Ordered By: Reynaldo Yin on 07-18-2023 Creatinine [Mass/Vol] 1.45 mg/dL 0.70-1.30 [place] Comment on above: The validity of the calculated GFR & GFRAA in patients over 70 years has not been determined. Clinical correlation is essential. Serum or plasma urea nitroge n measurement (mass/volume)Ordered By: Reynaldo Yin on 07-18-2023 Urea nitrogen [Mass/Vol] 23 mg/dL 7-18 [facility] Thin prep Papanicolaou smear with manual screeningOrdered By: Srikanth Edwards on 07-18-2023 Thin prep Papanicolaou smear with manual screening 217 mg/dL 74-106 [facility] Comment on above: MANAGEMENT OF PATIEN T CARE PER NURSING PROTOCOL Thin prep Papanicolaou smear with manual screeningOrdered By: Reynaldo Yin on 07-18-2023 Thin prep Papanicolaou smear with manual screening 7 5-15 [facility] Basophil percentageOrdered B y: Nigel Kaiser on 07-17-2023 Bilirubin [Mass/Vol] 0.80 mg/dL 0.20-1.00 [facility] Comment on above: For patients on eltr ombopag therapy, use of [employer] TBIL is not recommended. Protein [Mass/Vol] 7.7 g/dL 6.4-8.2 [facility] Direct bilirubinOrdered By: Nigel Kaiser on 07-17-2023 Bilirubin.direct [Mass/Vol] 0.24 mg/dL 0.00-0.30 [facility] Laboratory - Chemistry and C hemistry - challengeOrdered By: Nigel Kaiser on 07-17-2023 ALP [Catalytic activity/Vol] 64 U/L 45-117 [facility] ALT [Catalytic activity/Vol] 28 U/L 16-61 [facility] Globulin (S) [Mass/Vol] 4.0 g/dL 2.2-4.2 [facility] Thin prep Papanicolaou smear with manual screeningOrdered By: Nigel Kaiser on 07-17-2023 Thin prep Papanicolaou smear with manual screening 3.7 g/dL 3.2-5.0 [facility] Thin prep Papanicolaou smear with manual screening 21 U/L 15-37 [facility] Basophil percentageOrdered B y: Yeison Crouch on 06-05-2023 Bilirubin [Mass/Vol] 0.70 mg/dL 0.20-1.00 [facility] Comment on above: For patients on eltr ombopag therapy, use of [employer] TBIL is not recommended. Cholesterol [Mass/Vol] 115 mg/dL <200 [facility] Comment on above: <200 mg/dL Desirable 200-240 mg/dL Borderline >240 mg/dL High Risk Protein [Mass/Vol] 7.4 g/dL 6.4-8.2 [facility] Triglyceride [Mass/Vol] 101 mg/dL <199 [facility] Comment on above: The drugs N-Acetylcy steine and Metamizole may falsely depress this assay.Serum Triglycerides Reference Interval Normal <150 mg/dL Borderline high 150 - 199 mg/dL High 200 - 499 mg/dL Very High > or = 500 mg/dL Direct bilirubinOrdered By: Yeison Crouch on 06-05-2023 Bilirubin.direct [Mass/Vol] 0.19 mg/dL 0.00-0.30 [facility] Laboratory - Chemistry and C hemistry - challengeOrdered By: Yeison Crouch on 06-05-2023 ALP [Catalytic activity/Vol] 72 U/L 45-117 [facility] ALT [Catalytic activity/Vol] 27 U/L 16-61 [facility] Cholesterol in HDL [Mass/Vol] 42 mg/dL >40 [facility] Comment on above: The drugs N-Acetylcy steine and Metamizole may falsely depress this assay. Reference Range HDL <40 mg/dL Low HDL Cholesterol HDL >or= 60 mg/dL High HDL Cholesterol Cholesterol in LDL [Mass/Vol] 53 mg/dL 0-130 [facility] Globulin (S) [Mass/Vol] 3.8 g/dL 2.2-4.2 [facility] No Panel InformationOrdered By: Yeison Crouch on 06-05-2023 VLDL Cholesterol 20 mg/dL 5-40 [facility] Thin prep Papanicolaou smear with manual screeningOrdered By: Yeison Crouch on 06-05-2023 Thin prep Papanicolaou smear with manual screening 3.6 g/dL 3.2-5.0 [facility] Thin prep Papanicolaou smear with manual screening 21 U/L 15-37 [facility] COVID & INFLUENZA A/B & RSV NAAT, ROUTINEon 04-12-2023 FLUAV RNA CAYETANO+probe Ql (Unsp spec) Not detected Not Detected [facility] FLUBV RNA CAYETANO+probe Ql (Unsp spec) Not detected Not Detected [facility] RSV A RNA CAYETANO+probe Ql (Unsp spec) Not detected Not Detected [facility] SARS-CoV-2 (COVID-19) RNA CAYETANO+probe Ql (Resp) Detected Abnormal See comment [facility] STREP A MOLECULAR (POC)on Procedural Control Valid [facility] Strep A (POCT) Negative Negative [facility] Basophil percentageOrdered B y: Alayna Diamond on 12-26-2022 Basophil percentage 2.8 mg/dL 2.5-4.9 [facility] Chloride [Moles/Vol] 104 mmol/L 98-107 [facility] Glucose [Mass/Vol] 141 mg/dL 74-106 [facility] Comment on above: Fasting Glucose resu lt greater than or equal to 126 mg/dL suggests DIABETES MELLITUS per A.D.A. criteria. Potassium [Moles/Vol] 3.9 mmol/L 3.5-5.1 [place] Sodium [Moles/Vol] 137 mmol/L 136-145 [facility] Laboratory - Chemistry and C hemistry - challengeOrdered By: Alayna Diamond on 12-26-2022 CO2 [Moles/Vol] 28.0 mmol/L 21.0-32.0 [facility] Urea nitrogen/Creatinine [Mass ratio] 16.2 mg/mg 10-20 [facility] No Panel InformationOrdered By: Alayna Diamond on 12-26-2022 Estimated GFR (MDRD) Amer 54 mL/min >60 [facility] Comment on above: GFR Calc Estimated GFR (MDRD) Non-Af Amer 45 mL/min >60 [facility] Comment on above: Non- GFR Calc Serum or plasma albumin marion urement (mass/volume)Ordered By: Alayna Diamond on 12-26-2022 Albumin [Mass/Vol] 3.6 g/dL 3.2-5.0 [facility] Serum or plasma calcium marion urement (mass/volume)Ordered By: Alayna Diamond on 12-26-2022 Calcium [Mass/Vol] 9.1 mg/dL 8.5-10.1 [facility] Serum or plasma creatinine m easurement (mass/volume)Ordered By: Alayna Diamond on 12-26-2022 Creatinine [Mass/Vol] 1.60 mg/dL 0.70-1.30 [place] Comment on above: The validity of the calculated GFR & GFRAA in patients over 70 years has not been determined. Clinical correlation is essential. Serum or plasma urea nitroge n measurement (mass/volume)Ordered By: Alayna Diamond on 12-26-2022 Urea nitrogen [Mass/Vol] 26 mg/dL 7-18 [facility] Basophil percentageOrdered B y: David Fox on 11-29-2022 Cholesterol [Mass/Vol] 105 mg/dL <200 [facility] Comment on above: <200 mg/dL Desirable 200-240 mg/dL Borderline >240 mg/dL High Risk Triglyceride [Mass/Vol] 83 mg/dL <199 [facility] Comment on above: The drugs N-Acetylcy steine and Metamizole may falsely depress this assay.Serum Triglycerides Reference Interval Normal <150 mg/dL Borderline high 150 - 199 mg/dL High 200 - 499 mg/dL Very High > or = 500 mg/dL Laboratory - Chemistry and C hemistry - challengeOrdered By: David Fox on 11-29-2022 ALT [Catalytic activity/Vol] 28 U/L 16-61 [facility] CK [Catalytic activity/Vol] 54 U/L 39-308 [facility] Serum or plasma cholesterol in HDL measurement (mass/volume)Ordered By: David Fox on 11-29-2022 Cholesterol in HDL [Mass/Vol] 40 mg/dL >40 [facility] Comment on above: The drugs N-Acetylcy steine and Metamizole may falsely depress this assay. Reference Range HDL <40 mg/dL Low HDL Cholesterol HDL >or= 60 mg/dL High HDL Cholesterol Serum or plasma cholesterol in VLDL measurement (mass/volume)Ordered By: David Fox on 11-29-2022 Cholesterol in VLDL [Mass/Vol] 17 mg/dL 5-40 [facility] Serum or plasma low density lipoprotein (LDL) cholesterol measurement (mass/volume)Ordered By: David Fox on 11-29-2022 Cholesterol in LDL [Mass/Vol] 48 mg/dL 0-130 [facility] Thin prep Papanicolaou smear with manual screeningOrdered By: David Fox on 11-29-2022 Thin prep Papanicolaou smear with manual screening 22 U/L 15-37 [facility] Basophil percentageOrdered B y: Alayna Diamond on 10-25-2022 Basophil percentage 2.7 mg/dL 2.5-4.9 [facility] Chloride [Moles/Vol] 106 mmol/L 98-107 [facility] Glucose [Mass/Vol] 144 mg/dL 74-106 [facility] Comment on above: Fasting Glucose resu lt greater than or equal to 126 mg/dL suggests DIABETES MELLITUS per A.D.A. criteria. Potassium [Moles/Vol] 4.0 mmol/L 3.5-5.1 [place] Sodium [Moles/Vol] 137 mmol/L 136-145 [facility] Laboratory - Chemistry and C hemistry - challengeOrdered By: Alayna Diamond on 10-25-2022 CO2 [Moles/Vol] 27.0 mmol/L 21.0-32.0 [facility] Urea nitrogen/Creatinine [Mass ratio] 18.3 mg/mg 10-20 [facility] No Panel InformationOrdered By: Alayna Diamond on 10-25-2022 Estimated GFR (MDRD) Amer 49 mL/min >60 [facility] Comment on above: GFR Calc Estimated GFR (MDRD) Non-Af Amer 40 mL/min >60 [facility] Comment on above: Non- GFR Calc Serum or plasma albumin marion urement (mass/volume)Ordered By: Alayna Diamond on 10-25-2022 Albumin [Mass/Vol] 3.4 g/dL 3.2-5.0 [facility] Serum or plasma calcium marion urement (mass/volume)Ordered By: Alayna Diamond on 10-25-2022 Calcium [Mass/Vol] 8.7 mg/dL 8.5-10.1 [facility] Serum or plasma creatinine m easurement (mass/volume)Ordered By: Alayna Diamond on 10-25-2022 Creatinine [Mass/Vol] 1.75 mg/dL 0.70-1.30 [place] Comment on above: The validity of the calculated GFR & GFRAA in patients over 70 years has not been determined. Clinical correlation is essential. Serum or plasma urea nitroge n measurement (mass/volume)Ordered By: Alayna Diamond on 10-25-2022 Urea nitrogen [Mass/Vol] 32 mg/dL 7-18 [facility] Basophil percentageOrdered B y: Alayna Diamond on 09-27-2022 Basophil percentage 0 SEEN /hpf 0-5 [facility] Bilirubin Test strip Ql (U)O rdered By: Alayna Diamond on 06-07-2023 Bilirubin Ql (U) Negative Negative [facility] Culture, urineOrdered By: Jacqueline Diamond on 09-27-2022 Bacteria identified Cx Nom (U) Culture exhibits no growth. [facility] Ketones Test strip Ql (U)Ord ered By: Alayna Diamond on 09-27-2022 Ketones Ql (U) Negative Negative [facility] Mucus LM Ql (Urine sed)Order ed By: Alayna Diamond on 09-27-2022 Mucus Ql (Urine sed) 0 SEEN /hpf [place] Nitrite Test strip Ql (U)Ord ered By: Alayna Diamond on 09-27-2022 Nitrite Ql (U) Negative Negative [facility] Protein Test strip Ql (U)Ord ered By: Alayna Diamond on 09-27-2022 Protein Ql (U) Negative Negative [facility] Squamous epithelial cells de tection in urine sediment by light microscopyOrdered By: Alayna Diamond on 09-27-2022 Epithelial cells.squamous LM Ql (Urine sed) 0 SEEN /hpf 0-5 [facility] Urine blood detectionOrdered By: Alayna Diamond on 09-27-2022 RBC Ql (U) Negative Negative [facility] RBC Ql (U) 0 SEEN /hpf 0-5 [facility] Urine clarityOrdered By: Pascual Diamond on 09-27-2022 Clarity (U) Clear Clear [facility] Urine color determinationOrd ered By: Alayna Diamond on 09-27-2022 Color (U) Yellow Yellow [facility] Urine glucose detectionOrder ed By: Alayna Diamond on 09-27-2022 Glucose Ql (U) 1000 mg/dl Normal [facility] Urine leukocyte esterase det ection by dipstickOrdered By: Alayna Diamond on 09-27-2022 Leukocyte esterase Test strip Ql (U) Negative Negative [facility] Urine pHOrdered By: Nusrat Diamond on 09-27-2022 pH (U) 5.0 [pH] 5.0 - 8.0 [facility] Urine sediment bacteria coun t by microscopy (number/high power field)Ordered By: Alayna Diamond on 09-27-2022 Bacteria LM.HPF (Urine sed) [#/Area] 0 /[HPF] None Seen [facility] Urine specific gravity measu rementOrdered By: Alayna Diamond on 09-27-2022 Specific gravity (U) [Rel density] 1.010 1.002-1.030 [facility] Urobilinogen Auto test strip Ql (U)Ordered By: Alayna Diamond on 09-27-2022 Urobilinogen Ql (U) Normal mg/dl Normal [place] XR ELBOW SPECIAL VIEWS AP/LA T/OTHER LEFTon 09-27-2022 [facility] XR Elbow - left AP and Later al and obliqueon 09-27-2022 IMPRESSION: While no definite fracture is identified, there is a suggestion of a small effusion. An occult fracture could be present. Nurse College: [employer] Transcribe Date/Time: Sep 27 2022 6:11P Dictated by : PARKER MCMULLEN MD This examination was interpreted and the report reviewed and electronically signed by: PARKER MCMULLEN MD on Sep 27 2022 6:19PM [facility] DIVISION OF RADIOLOGY * * *Final Report* * * DATE OF EXAM: Sep 27 2022 2:22PM WOX 5324 - XR ELBOW 3V AP/LAT/OTHER LT / PROCEDURE REASON: Elbow pain, left * * * * Physician Interpretation * * * * LEFT ELBOW X-RAY SERIES HISTORY: Elbow pain, left TECHNIQUE: PA, lateral and oblique views. COMPARISON: None available. RESULT: No definite fracture, dislocation or destructive changes. Degenerative changes of the elbow. Olecranon enthesophyte. Suggestion of small joint effusion. DIVISION OF RADIOLOGY Provider, [facility] - 09/27/2022 * * *Final Report* * * DATE OF EXAM: Sep 27 2022 2:22PM WOX 5324 - XR ELBOW 3V AP/LAT/OTHER LT / PROCEDURE REASON: Elbow pain, left * * * * Physician Interpretation * * * * LEFT ELBOW X-RAY SERIES HISTORY: Elbow pain, left TECHNIQUE: PA, lateral and oblique views. COMPARISON: None available. RESULT: No definite fracture, dislocation or destructive changes. Degenerative changes of the elbow. Olecranon enthesophyte. Suggestion of small joint effusion. IMPRESSION IMPRESSION: While no definite fracture is identified, there is a suggestion of a small effusion. An occult fracture could be present. Nurse College: [employer] Transcribe Date/Time: Sep 27 2022 6:11P Dictated by : PARKER MCMULLEN MD This examination was interpreted and the report reviewed and electronically signed by: PARKER MCMULLEN MD on Sep 27 2022 6:19PM EST [facility] Radiology Study observation (narrative) [facility] XR Elbow - left AP and Later al and obliqueOrdered By: [facility] Provider on 09-27-2022 [facility] Basophil percentageOrdered B y: Alayan Diamond on 09-20-2022 Basophil percentage 2.6 mg/dL 2.5-4.9 [facility] Chloride [Moles/Vol] 101 mmol/L 98-107 [facility] Glucose [Mass/Vol] 149 mg/dL 74-106 [facility] Comment on above: Fasting Glucose resu lt greater than or equal to 126 mg/dL suggests DIABETES MELLITUS per A.D.A. criteria. Potassium [Moles/Vol] 4.0 mmol/L 3.5-5.1 [place] Sodium [Moles/Vol] 136 mmol/L 136-145 [facility] Laboratory - Chemistry and C hemistry - challengeOrdered By: Alayna Diamond on 09-20-2022 CO2 [Moles/Vol] 28.0 mmol/L 21.0-32.0 [facility] Urea nitrogen/Creatinine [Mass ratio] 16.5 mg/mg 10-20 [facility] No Panel InformationOrdered By: Alayna Diamond on 09-20-2022 Estimated GFR (MDRD) Amer 45 mL/min >60 [facility] Comment on above: GFR Calc Estimated GFR (MDRD) Non-Af Amer 37 mL/min >60 [facility] Comment on above: Non- GFR Calc Serum or plasma albumin marion urement (mass/volume)Ordered By: Alayna Diamond on 09-20-2022 Albumin [Mass/Vol] 3.6 g/dL 3.2-5.0 [facility] Serum or plasma calcium marion urement (mass/volume)Ordered By: Alayna Diamond on 09-20-2022 Calcium [Mass/Vol] 9.5 mg/dL 8.5-10.1 [facility] Serum or plasma creatinine m easurement (mass/volume)Ordered By: Alayna Diamond on 09-20-2022 Creatinine [Mass/Vol] 1.88 mg/dL 0.70-1.30 [place] Comment on above: The validity of the calculated GFR & GFRAA in patients over 70 years has not been determined. Clinical correlation is essential. Serum or plasma urea nitroge n measurement (mass/volume)Ordered By: Alayna Diamond on 09-20-2022 Urea nitrogen [Mass/Vol] 31 mg/dL 7-18 [facility] Urine creatinine measurement (mass/volume)Ordered By: Alayna Diamond on 09-20-2022 Creatinine (U) [Mass/Vol] 301.00 mg/dL NO RANGE EST. [facility] Urine protein measurement (m ass/volume)Ordered By: Alayna Diamond on 09-20-2022 Protein (U) [Mass/Vol] 29.3 mg/dL 0.0-11.8 [facility] Urine protein/creatinine mas s ratioOrdered By: Alayna Diamond on 09-20-2022 Protein/Creatinine (U) [Mass ratio] 97 mg/g CRE 0-200 [facility] Basophil percentageOrdered B y: Yeison Crouch on 07-26-2022 Bilirubin [Mass/Vol] 0.60 mg/dL 0.20-1.00 [facility] Comment on above: For patients on eltr ombopag therapy, use of [employer] TBIL is not recommended. Cholesterol [Mass/Vol] 100 mg/dL <200 [facility] Comment on above: <200 mg/dL Desirable 200-240 mg/dL Borderline >240 mg/dL High Risk Protein [Mass/Vol] 7.5 g/dL 6.4-8.2 [facility] Triglyceride [Mass/Vol] 93 mg/dL <199 [facility] Comment on above: The drugs N-Acetylcy steine and Metamizole may falsely depress this assay.Serum Triglycerides Reference Interval Normal <150 mg/dL Borderline high 150 - 199 mg/dL High 200 - 499 mg/dL Very High > or = 500 mg/dL Direct bilirubinOrdered By: Yeison Crouch on 07-26-2022 Bilirubin.direct [Mass/Vol] 0.17 mg/dL 0.00-0.30 [facility] Laboratory - Chemistry and C hemistry - challengeOrdered By: Yeison Crouch on 07-26-2022 ALP [Catalytic activity/Vol] 71 U/L 45-117 [facility] ALT [Catalytic activity/Vol] 29 U/L 16-61 [facility] Globulin (S) [Mass/Vol] 3.9 g/dL 2.2-4.2 [facility] No Panel InformationOrdered By: Yeison Crouch on 07-26-2022 Prostate Specific Antigen Screen 1.13 ng/mL 0.00-4.00 [facility] Comment on above: This test was perfor med using the TPSA assay method for the[employer] chemistry system. Values obtained with differentassay methods cannot be used interchangably.When changing PSA assays in the course of monitoring apatient, additional sequential testing should be carriedout to confirm baseline values. Serum or plasma albumin marion urement (mass/volume)Ordered By: Yeison Crouch on 07-26-2022 Albumin [Mass/Vol] 3.6 g/dL 3.2-5.0 [facility] Serum or plasma cholesterol in HDL measurement (mass/volume)Ordered By: Yeison Crouch on 07-26-2022 Cholesterol in HDL [Mass/Vol] 38 mg/dL >40 [facility] Comment on above: The drugs N-Acetylcy steine and Metamizole may falsely depress this assay. Reference Range HDL <40 mg/dL Low HDL Cholesterol HDL >or= 60 mg/dL High HDL Cholesterol Serum or plasma cholesterol in VLDL measurement (mass/volume)Ordered By: Yeison Crouch on 07-26-2022 Cholesterol in VLDL [Mass/Vol] 19 mg/dL 5-40 [facility] Serum or plasma low density lipoprotein (LDL) cholesterol measurement (mass/volume)Ordered By: Yeison Crouch on 07-26-2022 Cholesterol in LDL [Mass/Vol] 43 mg/dL 0-130 [facility] Thin prep Papanicolaou smear with manual screeningOrdered By: Yeison Crouch on 07-26-2022 Thin prep Papanicolaou smear with manual screening 23 U/L 15-37 [facility] XR Foot - left AP and Latera l and obliqueon 04-21-2022 IMPRESSION: No acute fracture or dislocation Nurse College: [employer] Transcribe Date/Time: Apr 21 2022 5:05P Dictated by : BRINA SERVIN MD This examination was interpreted and the report reviewed and electronically signed by: BRINA SERVIN MD on Apr 21 2022 5:07PM EST DIVISION OF RADIOLOGY * * *Final Report* * * DATE OF EXAM: Apr 20 2022 10:35AM WOX 5336 - XR FOOT 3V AP/LAT/OBL LT / PROCEDURE REASON: Acute foot pain, left * * * * Physician Interpretation * * * * EXAMINATION: XR FOOT 3V AP/LAT/OBL LT CLINICAL HISTORY: Left foot pain Technique: XR FOOT 3V AP/LAT/OBL LT -- LEFT with 3 views on 3 images Comparison: None RESULT: No acute fracture or dislocation. Joint spaces are maintained. Plantar and posterior calcaneal spurs. DIVISION OF RADIOLOGY Provider, [facility] - 04/21/2022 * * *Final Report* * * DATE OF EXAM: Apr 20 2022 10:35AM WOX 5336 - XR FOOT 3V AP/LAT/OBL LT / PROCEDURE REASON: Acute foot pain, left * * * * Physician Interpretation * * * * EXAMINATION: XR FOOT 3V AP/LAT/OBL LT CLINICAL HISTORY: Left foot pain Technique: XR FOOT 3V AP/LAT/OBL LT -- LEFT with 3 views on 3 images Comparison: None RESULT: No acute fracture or dislocation. Joint spaces are maintained. Plantar and posterior calcaneal spurs. IMPRESSION IMPRESSION: No acute fracture or dislocation Nurse College: [employer] Transcribe Date/Time: Apr 21 2022 5:05P Dictated by : BRINA SERVIN MD This examination was interpreted and the report reviewed and electronically signed by: BRINA SERVIN MD on Apr 21 2022 5:07PM EST [facility] XR Foot - left AP and Latera l and obliqueOrdered By: [facility] Provider on 04-21-2022 [facility] XR Foot - left AP and Latera l and obliqueon 04-20-2022 Radiology Study observation (narrative) [facility] Basophil percentageon 2021 Bilirubin [Mass/Vol] 0.60 mg/dL 0.20-1.00 [facility] Work Phone: Comment on above: For patients on eltr ombopag therapy, use of [employer] TBIL is not recommended. Cholesterol [Mass/Vol] 112 mg/dL <200 [facility] Work Phone: Comment on above: <200 mg/dL Desirable 200-240 mg/dL Borderline >240 mg/dL High Risk Protein [Mass/Vol] 7.8 g/dL 6.4-8.2 [facility] Work Phone: Triglyceride [Mass/Vol] 145 mg/dL <199 [facility] Work Phone: Comment on above: The drugs N-Acetylcy steine and Metamizole may falsely depress this assay.Serum Triglycerides Reference Interval Normal <150 mg/dL Borderline high 150 - 199 mg/dL High 200 - 499 mg/dL Very High > or = 500 mg/dL Direct bilirubinon 2 Bilirubin.direct [Mass/Vol] 0.20 mg/dL 0.00-0.30 [facility] Work Phone: Laboratory - Chemistry and C hemistry - challengeon 08-10-2021 ALP [Catalytic activity/Vol] 92 U/L 45-117 [facility] Work Phone: ALT [Catalytic activity/Vol] 63 U/L 16-61 [facility] Work Phone: Globulin (S) [Mass/Vol] 4.2 g/dL 2.2-4.2 [facility] Work Phone: Serum or plasma albumin marion urement (mass/volume)on 08-10-2021 Albumin [Mass/Vol] 3.6 g/dL 3.2-5.0 [facility] Work Phone: Serum or plasma cholesterol in HDL measurement (mass/volume)on 08-10-2021 Cholesterol in HDL [Mass/Vol] 37 mg/dL >40 [facility] Work Phone: Comment on above: The drugs N-Acetylcy steine and Metamizole may falsely depress this assay. Reference Range HDL <40 mg/dL Low HDL Cholesterol HDL >or= 60 mg/dL High HDL Cholesterol Serum or plasma cholesterol in VLDL measurement (mass/volume)on 08-10-2021 Cholesterol in VLDL [Mass/Vol] 29 mg/dL 5-40 [facility] Work Phone: Serum or plasma low density lipoprotein (LDL) cholesterol measurement (mass/volume)on 08-10-2021 Cholesterol in LDL [Mass/Vol] 46 mg/dL 0-130 [facility] Work Phone: Thin prep Papanicolaou smear with manual screeningon 08-10-2021 Thin prep Papanicolaou smear with manual screening 42 U/L 15-37 [facility] Work Phone: Basophil percentageon 2021 Basophil percentage 3.1 mg/dL 2.5-4.9 [facility] Work Phone: Chloride [Moles/Vol] 104 mmol/L 98-107 [facility] Work Phone: Glucose [Mass/Vol] 162 mg/dL 74-106 [facility] Work Phone: Comment on above: Fasting Glucose resu lt greater than or equal to 126 mg/dL suggests DIABETES MELLITUS per A.D.A. criteria. Potassium [Moles/Vol] 3.6 mmol/L 3.5-5.1 [place] Work Phone: Sodium [Moles/Vol] 137 mmol/L 136-145 [facility] Work Phone: Cytology report of Body flui d Cyto stainon 07-11-2021 Cytology report Cyto stain Doc (Body fld) SEE PATHOLOGY REPORT [facility] Work Phone: Comment on above: Specimen submitted t o Anatomical Pathology Department for testing. Laboratory - Chemistry and C hemistry - challengeon 07-11-2021 CO2 [Moles/Vol] 30.0 mmol/L 21.0-32.0 [facility] Work Phone: Urea nitrogen/Creatinine [Mass ratio] 13.4 mg/mg 10-20 [facility] Work Phone: No Panel Informationon 07-11 Estimated GFR (MDRD) Amer 56 mL/min >60 [facility] Work Phone: Comment on above: GFR Calc Estimated GFR (MDRD) Non-Af Amer 46 mL/min >60 [facility] Work Phone: Comment on above: Non- GFR Calc Prostate Specific Antigen Total 1.29 ng/mL 0.0-4.0 [facility] Work Phone: Comment on above: This test was perfor med using the TPSA assay method for [employer] chemistry system. Values obtained with differentassay methods cannot be used interchangably.When changing PSA assays in the course of monitoring apatient, additional sequential testing should be carriedout to confirm baseline values. Serum or plasma albumin marion urement (mass/volume)on 07-11-2021 Albumin [Mass/Vol] 4.0 g/dL 3.2-5.0 [facility] Work Phone: Serum or plasma calcium marion urement (mass/volume)on 07-11-2021 Calcium [Mass/Vol] 9.7 mg/dL 8.5-10.1 [facility] Work Phone: Serum or plasma creatinine m easurement (mass/volume)on 07-11-2021 Creatinine [Mass/Vol] 1.57 mg/dL 0.70-1.30 [place] Work Phone: Comment on above: The validity of the calculated GFR & GFRAA in patients over 70 years has not been determined. Clinical correlation is essential. Serum or plasma urea nitroge n measurement (mass/volume)on 07-11-2021 Urea nitrogen [Mass/Vol] 21 mg/dL 7-18 [facility] Work Phone: Urine creatinine measurement (mass/volume)on 07-11-2021 Creatinine (U) [Mass/Vol] 35.40 mg/dL NO RANGE EST. [facility] Work Phone: Urine protein measurement (m ass/volume)on 07-11-2021 Protein (U) [Mass/Vol] 10.7 mg/dL 0.0-11.8 [facility] Work Phone: Urine protein/creatinine mas s ratioon 07-11-2021 Protein/Creatinine (U) [Mass ratio] 302 mg/g CRE 0-200 [facility] Work Phone: Basophil percentageon 2021 Basophil percentage 2.6 mg/dL 2.5-4.9 [facility] Work Phone: Chloride [Moles/Vol] 103 mmol/L 98-[address] [facility] Work Phone: Glucose [Mass/Vol] 155 mg/dL 74-106 [facility] Work Phone: Comment on above: Fasting Glucose resu lt greater than or equal to 126 mg/dL suggests DIABETES MELLITUS per A.D.A. criteria. Potassium [Moles/Vol] 3.8 mmol/L 3.5-5.1 [place] Work Phone: Sodium [Moles/Vol] 136 mmol/L 136-145 [facility] Work Phone: Laboratory - Chemistry and C hemistry - challengeon 05-10-2021 CO2 [Moles/Vol] 28.0 mmol/L 21.0-32.0 [facility] Work Phone: Urea nitrogen/Creatinine [Mass ratio] 14.5 mg/mg 10-20 [facility] Work Phone: No Panel Informationon 05-10 Estimated GFR (MDRD) Amer 50 mL/min >60 [facility] Work Phone: Comment on above: GFR Calc Estimated GFR (MDRD) Non-Af Amer 41 mL/min >60 [facility] Work Phone: Comment on above: Non- GFR Calc Serum or plasma albumin marion urement (mass/volume)on 05-10-2021 Albumin [Mass/Vol] 3.9 g/dL 3.2-5.0 [facility] Work Phone: Serum or plasma calcium marion urement (mass/volume)on 05-10-2021 Calcium [Mass/Vol] 9.4 mg/dL 8.5-10.1 [facility] Work Phone: Serum or plasma creatinine m easurement (mass/volume)on 05-10-2021 Creatinine [Mass/Vol] 1.73 mg/dL 0.70-1.30 [place] Work Phone: Comment on above: The validity of the calculated GFR & GFRAA in patients over 70 years has not been determined. Clinical correlation is essential. Serum or plasma urea nitroge n measurement (mass/volume)on 05-10-2021 Urea nitrogen [Mass/Vol] 25 mg/dL 11-07 [facility] Work Phone: No Panel Informationon 07-14 IMPRESSION: Findings as discussed under Results portion of report. Nurse College: [employer] Transcribe Date/Time: Jul 14 2020 12:48P Dictated by : ALLA AGUIRRE DO This examination was interpreted and the report reviewed and electronically signed by: ALLA AGUIRRE DO on Jul 14 2020 12:55PM [facility] DIVISION OF RADIOLOGY Radiology Study observation (narrative) [facility] No Panel InformationOrdered By: [facility] Provider on 07-14-2020 [facility] XR Hand - bilateral PA and L ateral and Obliqueon 07-14-2020 * * *Final Report* * * DATE OF EXAM: Jul 14 2020 12:43PM WOX 5556 - XR HAND 3V PA/LAT/OBL MOMO / PROCEDURE REASON: Arthritis of hand * * * * Physician Interpretation * * * * Bilateral hands and wrists HISTORY: 74 years old Clinical information: Arthritis of hand TECHNIQUE: Images: XR HAND 3V PA/LAT/OBL MOMO, XR WRIST 3V PA/LAT/OBL MOMO . Comparison: None. RESULT: Findings: Bilateral hands: There is narrowing of all interphalangeal joints. No periarticular erosions are seen. Bone density well-preserved. RIGHThand: No fractures or dislocations are seen. RIGHT wrist: No fractures or dislocations are seen. Marked narrowing of the radiocarpal joint. Severe narrowing of the first metacarpal carpal joint. Deformity of the navicular probably related to remote fracture. LEFThand: No fractures or dislocations are seen. LEFTwrist: No fractures or dislocations are seen. Severe narrowing of the radiocarpal joint. There is marked narrowing of the intercarpal joints along the lateral aspect of the wrist. There is marked narrowing of the first metacarpal carpal joint. Deformity of the distal radius with upward angulation of the distal portion of the radius probably related to old healed fracture. DIVISION OF RADIOLOGY Provider, [facility] - 07/14/2020 * * *Final Report* * * DATE OF EXAM: Jul 14 2020 12:43PM WOX 5556 - XR HAND 3V PA/LAT/OBL MOMO / PROCEDURE REASON: Arthritis of hand * * * * Physician Interpretation * * * * Bilateral hands and wrists HISTORY: 74 years old Clinical information: Arthritis of hand TECHNIQUE: Images: XR HAND 3V PA/LAT/OBL MOMO, XR WRIST 3V PA/LAT/OBL MOMO . Comparison: None. RESULT: Findings: Bilateral hands: There is narrowing of all interphalangeal joints. No periarticular erosions are seen. Bone density well-preserved. RIGHThand: No fractures or dislocations are seen. RIGHT wrist: No fractures or dislocations are seen. Marked narrowing of the radiocarpal joint. Severe narrowing of the first metacarpal carpal joint. Deformity of the navicular probably related to remote fracture. LEFThand: No fractures or dislocations are seen. LEFTwrist: No fractures or dislocations are seen. Severe narrowing of the radiocarpal joint. There is marked narrowing of the intercarpal joints along the lateral aspect of the wrist. There is marked narrowing of the first metacarpal carpal joint. Deformity of the distal radius with upward angulation of the distal portion of the radius probably related to old healed fracture. IMPRESSION IMPRESSION: Findings as discussed under Results portion of report. Nurse College: [employer] Transcribe Date/Time: Jul 14 2020 12:48P Dictated by : ALLA AGUIRRE DO This examination was interpreted and the report reviewed and electronically signed by: ALLA AGUIRRE DO on Jul 14 2020 12:55PM [facility] XR Wrist - bilateral PA and Lateral and Obliqueon 07-14-2020 * * *Final Report* * * DATE OF EXAM: Jul 14 2020 12:43PM WOX 5621 - XR WRIST 3V PA/LAT/OBL MOMO / PROCEDURE REASON: Arthritis of hand * * * * Physician Interpretation * * * * Bilateral hands and wrists HISTORY: 74 years old Clinical information: Arthritis of hand TECHNIQUE: Images: XR HAND 3V PA/LAT/OBL MOMO, XR WRIST 3V PA/LAT/OBL MOMO . Comparison: None. RESULT: Findings: Bilateral hands: There is narrowing of all interphalangeal joints. No periarticular erosions are seen. Bone density well-preserved. RIGHThand: No fractures or dislocations are seen. RIGHT wrist: No fractures or dislocations are seen. Marked narrowing of the radiocarpal joint. Severe narrowing of the first metacarpal carpal joint. Deformity of the navicular probably related to remote fracture. LEFThand: No fractures or dislocations are seen. LEFTwrist: No fractures or dislocations are seen. Severe narrowing of the radiocarpal joint. There is marked narrowing of the intercarpal joints along the lateral aspect of the wrist. There is marked narrowing of the first metacarpal carpal joint. Deformity of the distal radius with upward angulation of the distal portion of the radius probably related to old healed fracture. DIVISION OF RADIOLOGY Provider, [facility] - 07/14/2020 * * *Final Report* * * DATE OF EXAM: Jul 14 2020 12:43PM WOX 5621 - XR WRIST 3V PA/LAT/OBL MOMO / PROCEDURE REASON: Arthritis of hand * * * * Physician Interpretation * * * * Bilateral hands and wrists HISTORY: 74 years old Clinical information: Arthritis of hand TECHNIQUE: Images: XR HAND 3V PA/LAT/OBL MOMO, XR WRIST 3V PA/LAT/OBL MOMO . Comparison: None. RESULT: Findings: Bilateral hands: There is narrowing of all interphalangeal joints. No periarticular erosions are seen. Bone density well-preserved. RIGHThand: No fractures or dislocations are seen. RIGHT wrist: No fractures or dislocations are seen. Marked narrowing of the radiocarpal joint. Severe narrowing of the first metacarpal carpal joint. Deformity of the navicular probably related to remote fracture. LEFThand: No fractures or dislocations are seen. LEFTwrist: No fractures or dislocations are seen. Severe narrowing of the radiocarpal joint. There is marked narrowing of the intercarpal joints along the lateral aspect of the wrist. There is marked narrowing of the first metacarpal carpal joint. Deformity of the distal radius with upward angulation of the distal portion of the radius probably related to old healed fracture. IMPRESSION IMPRESSION: Findings as discussed under Results portion of report. Nurse College: [employer] Transcribe Date/Time: Jul 14 2020 12:48P Dictated by : ALLA AGUIRRE DO This examination was interpreted and the report reviewed and electronically signed by: ALLA AGUIRRE DO on Jul 14 2020 12:55PM [facility] Lab Report: Lipid Profileon 05-23-2017 Cholesterol 120 mg/dL Invalid Interpretation Code 200 [facility] Work Phone: [phone] HDL Cholesterol 38 mg/dL Low [place] Work Phone: [phone] LDL Cholesterol 62 mg/dL Invalid Interpretation Code 0-130 [facility] Work Phone: [phone] Triglyceride 101 mg/dL Invalid Interpretation Code [facility] Work Phone: [phone] very low density lipoproteins 20 mg/dL Invalid Interpretation Code 5-40 [facility] Work Phone: [phone] Lab Report: Liver Profileon 05-23-2017 Alanine aminotransferase (ALT) 33 U/L Invalid Interpretation Code 16-61 [facility] Work Phone: [phone] Albumin 4.0 g/dL Invalid Interpretation Code 3.2-5.0 [facility] Work Phone: [phone] Alkaline phosphatase (ALP) 79 U/L Invalid Interpretation Code 45-117 [facility] Work Phone: [phone] Aspartate aminotransferase (AST) 24 U/L Invalid Interpretation Code 15-37 [facility] Work Phone: [phone] Bilirubin (direct) 0.20 mg/dL Invalid Interpretation Code 0.00-0.30 [facility] Work Phone: [phone] Bilirubin (total) 0.70 mg/dL Invalid Interpretation Code 0.20-1.00 [facility] Work Phone: [phone] Globulin 3.8 g/dL Invalid Interpretation Code 2.2-4.2 [facility] Work Phone: [phone] Protein 7.8 g/dL Invalid Interpretation Code 6.4-8.2 [facility] Work Phone: [phone] Office Visiton 11-27-2016 Dietary management education, guidance, and counseling (procedure) yes Invalid Interpretation Code [facility] Work Phone: [phone] Documentation of current medications (procedure) Done Invalid Interpretation Code [facility] Work Phone: [phone] Fall risk assessment No Invalid Interpretation Code [facility] Work Phone: [phone] Protein mass conc Done [facility] Work Phone: [phone] Tobacco smoking status PRIS Tobacco smoking status NHIS Invalid Interpretation Code [facility] Work Phone: [phone] Tobacco smoking status [facility] Former smoker [facility] Work Phone: [phone] Tobacco use [facility] Former smoker Invalid Interpretation Code [facility] Work Phone: [phone] Lab Report: Lipid Profileon 11-23-2016 Cholesterol 100 mg/dL 200 [facility] Work Phone: [phone] HDL Cholesterol 31 mg/dL Low [facility] Work Phone: [phone] LDL Cholesterol 50 mg/dL 0-130 [facility] Work Phone: [phone] Triglyceride 97 mg/dL [facility] Work Phone: [phone] very low density lipoproteins 19 mg/dL 5-40 [facility] Work Phone: [phone] Lab Report: Liver Profileon 11-23-2016 Alanine aminotransferase (ALT) 30 U/L 12-78 [facility] Work Phone: [phone] Albumin 3.7 g/dL 3.4-5.0 [facility] Work Phone: [phone] Alkaline phosphatase (ALP) 67 U/L Invalid Interpretation Code 45-117 [facility] Work Phone: [phone] ALP enzyme act/vol (Bld) 67 U/L 45-117 [facility] Work Phone: [phone] Aspartate aminotransferase (AST) 28 U/L 15-37 [facility] Work Phone: [phone] Bilirubin (direct) 0.14 mg/dL 0.00-0.30 [facility] Work Phone: [phone] Bilirubin (total) 0.70 mg/dL 0.20-1.00 [facility] Work Phone: [phone] Globulin 3.4 g/dL Invalid Interpretation Code 2.3-3.5 [facility] Work Phone: [phone] Globulin mass conc (S) 3.4 g/dL 2.3-3.5 [facility] Work Phone: [phone] Protein 7.1 g/dL 6.4-8.2 [facility] [employer] Work Phone: [phone] Office Visit: [facility] 06-01-19 17 Documentation of current medications (procedure) Done Invalid Interpretation Code [facility] Work Phone: [phone] HbA1c 6.6 % Invalid Interpretation Code [facility] [facility] Work Phone: [phone] Protein mass conc Done [facility] [employer] Work Phone: [phone] Lab Report: Basic Metabolic Profile (BMP)on 11-29-2015 Anion gap 5 mmol/L Invalid Interpretation Code 5-15 [facility] Work Phone: [phone] Anion gap molar conc 5 mmol/L 5-[address] [facility] Work Phone: [phone] BUN/Creatinine Ratio 12.5 RATIO Invalid Interpretation Code 10-20 [facility] [employer] Work Phone: [phone] Calcium 9.2 mg/dL Invalid Interpretation Code 8.5-10.1 [facility] Work Phone: [phone] Chloride 101 mmol/L Invalid Interpretation Code 98-107 [facility] Work Phone: [phone] CO2 32.0 mmol/L Invalid Interpretation Code 21.0-32.0 [facility] Work Phone: [phone] CO2 ppres (BldV) 32.0 mmol/L 21.0-32.0 [facility] Work Phone: [phone] Creatinine 1.44 mg/dL High 0.70-1.30 [facility] Work Phone: [phone] eGFR (non-black) 52 mL/min/{1.73_m2} Low >60 [facility] [employer] Work Phone: [phone] eGFR (non-black) 62 mL/min/{1.73_m2} Invalid Interpretation Code >60 [facility] Work Phone: [phone] EST GFR - AA 62 mL/min >60 [facility] Work Phone: [phone] Glucose 134 mg/dL High 70-110 [facility] Work Phone: [phone] Glucose mass conc 134 mg/dL High 70-110 [facility] Work Phone: [phone] Potassium 4.5 mmol/L Invalid Interpretation Code 3.5-5.1 [facility] Work Phone: [phone] Sodium 138 mmol/L Invalid Interpretation Code 136-145 [facility] Work Phone: [phone] Urea nitrogen 18 mg/dL Invalid Interpretation Code 7-18 [facility] Work Phone: [phone] Lab Report: CBC-Complete Blo od Cnt No Diffon 11-29-2015 Erythrocyte distribution width Ratio (RBC) 47.6 fL High 35.1-43.9 [facility] Work Phone: [phone] Erythrocyte distribution width Ratio (RBC) 13.9 % 11.6-14.6 [facility] Work Phone: [phone] Erythrocytes (RBC) 4.21 10*6/uL Low 4.6-6.[address] [facility] Work Phone: [phone] Hematocrit (HCT) 40.7 % Invalid Interpretation Code 40-54 [facility] Work Phone: [phone] Hematocrit Volume Fraction (Bld) 40.7 % 40-54 [facility] Work Phone: [phone] Hemoglobin (HGB) 13.2 g/dL Invalid Interpretation Code 13.0-16.5 [facility] Work Phone: [phone] MCH 31.4 pg Invalid Interpretation Code 27.0-32.0 [facility] Work Phone: [phone] MCH Entitic mass (RBC) 31.4 pg 27.0-32.0 [facility] Work Phone: [phone] MCHC 32.4 G/GL Invalid Interpretation Code 32-36 [facility] Work Phone: [phone] MCHC mass conc (RBC) 32.4 G/GL 32-[address] [facility] Work Phone: [phone] MCV 96.7 fL High 80-94 [facility] Work Phone: [phone] MCV Entitic volume (RBC) 96.7 fL High 80-94 [facility] Work Phone: [phone] Platelet mean volume Entitic volume (Bld) 11.1 fL 6.2-12.0 [facility] Work Phone: [phone] Platelets 221 10*3/mm3 Invalid Interpretation Code 150-450 [facility] Work Phone: [phone] Platelets #/vol (Bld) 221 10*3/mm3 150-450 [facility] Work Phone: [phone] PMV by Josefina 11.1 fL Invalid Interpretation Code 6.2-12.0 [facility] Work Phone: [phone] RBC #/vol (Bld) 4.21 10*6/uL Low 4.6-6.2 [facility] Work Phone: [phone] RDW-CA 13.9 % Invalid Interpretation Code 11.6-14.6 [facility] Work Phone: [phone] red blood cell distribution width, size density 47.6 fL High 35.1-43.9 [facility] Work Phone: [phone] WBC #/vol (Bld) 7.9 10*3/uL 4.4-11.0 [facility] Work Phone: [phone] WBC (Leukocytes) 7.9 10*3/uL Invalid Interpretation Code 4.4-11.0 [facility] Work Phone: [phone] Lab Report: T4 Total, Thyrox inon 11-29-2015 Thyroxine (T4) 9.1 ug/dL Invalid Interpretation Code 4.5-12.1 [facility] Work Phone: [phone] Lab Report: Thyroid Stim Hor elyse (TSH)on 11-29-2015 Thyroid stimulating hormone (TSH) 2.85 u[iU]/mL Invalid Interpretation Code 0.358-3.74 [facility] Work Phone: [phone] Office Visiton 11-29-2015 Dietary management education, guidance, and counseling (procedure) yes Invalid Interpretation Code [facility] Work Phone: [phone] Office Visit: [facility] 06-01-19 16 Tobacco smoking status NHIS Former smoker [facility] Work Phone: [phone] Tobacco use HS Former smoker Invalid Interpretation Code [facility] Work Phone: [phone] Replaced Document: [facility] E CG Observationson 06-01-2015 EKG QRS axis 18 deg [facility] [employer] Work Phone: [phone] electrocardiogram interpretation Sinus Rhythm WITHIN NORMAL LIMITS Invalid Interpretation Code [facility] Work Phone: [phone] GE use only - for [employer] import when terms are not otherwise specified 407 ms Invalid Interpretation Code [facility] Work Phone: [phone] Interpretation Sinus Rhythm WITHIN NORMAL LIMITS [facility] Work Phone: [phone] P [place] 45 deg [facility] [employer] Work Phone: [phone] P wave axis, electrocardiogram 45 deg Invalid Interpretation Code [facility] Work Phone: [phone] IL Interval 134 ms [facility] Work Phone: [phone] IL interval, electrocardiogram 134 ms Invalid Interpretation Code [facility] Work Phone: [phone] Pulse (Heart Rate) 63 /min Invalid Interpretation Code [facility] Work Phone: [phone] QRS axis, electrocardiogram 18 deg Invalid Interpretation Code [facility] [employer] Work Phone: [phone] QRS Duration 90 ms [facility] [employer] Work Phone: [phone] QRS duration, electrocardiogram 90 ms Invalid Interpretation Code [facility] [employer] Work Phone: [phone] QT Interval new path ms [facility] Work Phone: [phone] QT interval, electrocardiogram new path ms Invalid Interpretation Code [facility] [employer] Work Phone: [phone] QTc Quispe 407 ms [facility] [employer] Work Phone: [phone] T [place] 35 deg [facility] Work Phone: T wave axis, electrocardiogram 35 deg Invalid Interpretation Code [facility] Work Phone: [phone] Lab Report: Prothrombin Time w/INRon 05-07-2014 Coagulation tissue factor induced in platelet poor plasma 12.7 s Invalid Interpretation Code 11.7-14.9 [facility] Work Phone: [phone] INR Coag RelTime (PPP) 0.9 {INR} [facility] Work Phone: [phone] INR in blood by coagulation 0.9 {INR} Invalid Interpretation Code [facility] Work Phone: [phone] Lab Report: Urinalysis, Rout ine (Dipstick)on 05-07-2014 specific gravity, urine 1.015 Invalid Interpretation Code 1.002-1.030 [facility] Work Phone: [phone] Lab Report: CBC W/Diff, Auto matedon 04-20-2014 Absolute Neut 5.4 X10 3/UL 2.0-7.7 [facility] Work Phone: [phone] Absolute Neutrophil count 5.4 X10 3/UL Invali d Interpretation Code 2.0-7.7 [facility] Work Phone: [phone] Basophils/100 leukocytes 0.6 % Invalid Interpretation Code 0-1 [facility] Work Phone: [phone] Basophils/100 WBC (Bld) 0.6 % 0-1 [facility] Work Phone: [phone] Eosinophils/100 leukocytes 2.5 % Invalid Interpretation Code 0-5 [facility] Work Phone: Eosinophils/100 WBC (Bld) 2.5 % 0-5 [facility] Work Phone: Lymphocytes/100 leukocytes 14.7 % Critically low 19-41 [facility] Work Phone: Lymphocytes/100 WBC (Bld) 14.7 % Critically low 19-41 [facility] Work Phone: Monocytes/100 leukocytes 13.7 % Critically high 0-10 [facility] Work Phone: Monocytes/100 WBC (Bld) 13.7 % Critically high 0-10 [facility] Work Phone: [phone] Neutrophils/100 leukocytes 68.2 % Invalid Interpretation Code 47-70 [facility] Work Phone: [phone] Neutrophils/100 WBC (Bld) 68.2 % 47-70 [facility] Work Phone: [phone] Office Visiton 04-20-2014 cardiac risk group C Invalid Interpretation Code [facility] Work Phone: [phone] General cardiovascular disease 10Y risk [#] [place].Larry'Fozia N/A Invalid Interpretation Code [facility] Work Phone: [phone] Replaced Document: [employer] E CG Observationson 11-28-2012 Pulse (Heart Rate) 408 ms Invalid Interpretation Code [facility] Work Phone: [phone] Vital Signs Date Time Vital Sign Value Performing Clinician Beulah irene 08-26-2024 11:37-0400 Body mass index (BMI) [Ratio] 23.51 kg/m2 Juanis Hawthorne APRN.[employer] WORK[employer] Work Phone: [facility] 08-26-2024 11:37-0400 Body weight 63.3 kg Juanis Hawthorne APRN.[employer]ILE [employer] WORK[employer] Work Phone: [facility] 08-26-2024 11:37-0400 Diastolic blood pressure 74 mm[Hg] Juanis Hawthorne APRN.TEXTILE PIN WORKER Work Phone: [facility] 08-26-2024 11:37-0400 Heart rate 86 /min Juanis Hawthorne APRN.[employer]ILE PIN WORKER Work Phone: [facility] 08-26-2024 11:37-0400 Respiratory rate 12 /min Juanis Hawthorne APRN.[employer]ILE PIN WORKER Work Phone: [facility] 08-26-2024 11:37-0400 SaO2% (BldA) [Mass fraction] 98 % Juanis Hawthorne APRN.[employer] WORKER Work Phone: [facility] 08-26-2024 11:37-0400 Systolic blood pressure 116 mm[Hg] Juanis Hawthorne APRN.[employer]ILE PIN WORKER Work Phone: [facility] 07-07-2024 08:17-0400 Body height 165.[address] Prince Celeste MD Work Phone: [facility] 07-07-2024 08:17-0400 Body mass index (BMI) [Ratio] 22.4 kg/m2 Dr. Prince Celeste MD Work Phone: [facility] 07-07-2024 08:17-0400 Body weight 61.[address] Prince Celeste MD Work Phone: [facility] 07-07-2024 08:17-0400 Diastolic blood pressure 73 mm[Hg] Dr. Prince Celeste MD Work Phone: [facility] 07-07-2024 08:17-0400 Heart rate 64 /min Dr. Prince Celeste MD Work Phone: [phone] [place] [address] 07-07-2024 08:17-0400 Respiratory rate 18 /min Dr. Prince Celeste MD Work Phone: [facility] 07-07-2024 08:17-0400 Systolic blood pressure 113 mm[Hg] Dr. Prince Celeste MD Work Phone: [facility] 05-12-2024 12:43-0500 Body mass index (BMI) [Ratio] 23.44 kg/m2 Prince Celeste MD Work Phone: [facility] 05-12-2024 12:43-0500 Body temperature 97.5 [degF] Prince Celeste MD Work Phone: [facility] 05-12-2024 12:43-0500 Body weight 63.1 kg Prince Celeste MD Work Phone: [facility] 05-12-2024 12:43-0500 Diastolic blood pressure 66 mm[Hg] Prince Celeste MD Work Phone: [facility] 05-12-2024 12:43-0500 Heart rate 60 /min Prince Celeste MD Work Phone: [facility] 05-12-2024 12:43-0500 Respiratory rate 16 /min Prince Celeste MD Work Phone: [facility] 05-12-2024 12:43-0500 Systolic blood pressure 114 mm[Hg] Prince Celeste MD Work Phone: [facility] 11-12-2023 13:44-0400 Body height 164.1 cm Prince Celeste MD Work Phone: [facility] 11-12-2023 13:44-0400 Body mass index (BMI) [Ratio] 24.43 kg/m2 Prince Celeste MD Work Phone: [facility] 11-12-2023 13:44-0400 Body temperature 98.01 [degF] Prince Celeste MD Work Phone: [facility] 11-12-2023 13:44-0400 Body weight 65.77 kg Prince Celeste MD Work Phone: [facility] 11-12-2023 13:44-0400 Diastolic blood pressure 62 mm[Hg] Prince Celeste MD Work Phone: [facility] 11-12-2023 13:44-0400 Heart rate 64 /min Prince Celeste MD Work Phone: [facility] 11-12-2023 13:44-0400 Respiratory rate 16 /min Prince Celeste MD Work Phone: [facility] 11-12-2023 13:44-0400 Systolic blood pressure 116 mm[Hg] Prince Celeste MD Work Phone: [facility] 11-01-2023 15:59-0400 Body mass index (BMI) [Ratio] 24.03 kg/m2 Prince Celeste MD Work Phone: [facility] 11-01-2023 15:59-0400 Body temperature 98.1 [degF] Prince Celeste MD Work Phone: [facility] 11-01-2023 15:59-0400 Body weight 63.5 kg Prince Celeste MD Work Phone: [facility] 11-01-2023 15:59-0400 Diastolic blood pressure 66 mm[Hg] Prince Celeste MD Work Phone: [facility] 11-01-2023 15:59-0400 Heart rate 64 /min Prince Celeste MD Work Phone: [facility] 11-01-2023 15:59-0400 Respiratory rate 16 /min Prince Celeste MD Work Phone: [facility] 11-01-2023 15:59-0400 Systolic blood pressure 112 mm[Hg] Prince Celeste MD Work Phone: [facility] 09-17-2023 15:04-0400 Body mass index (BMI) [Ratio] 24.45 kg/m2 Shaina Daly JACKSCREW WORKER.[employer] WORK[employer] Work Phone: [facility] 09-17-2023 15:04-0400 Body temperature 97.81 [degF] Shaina Daly JACKSCREW WORKER.[employer] WORK[employer] Work Phone: [facility] 09-17-2023 15:04-0400 Body weight 64.6 kg Shaina Daly JACKSCREW WORKER.[employer] WORK[employer] Work Phone: [facility] 09-17-2023 15:04-0400 Diastolic blood pressure 60 mm[Hg] Shaina Daly JACKSCREW WORKER.[employer] WORKER Work Phone: [facility] [facility] 09-17-2023 15:04-0400 Heart rate 70 /min Shaina Daly JACKSCREW WORKER.TEXTILE PIN WORKER Work Phone: [facility] 09-17-2023 15:04-0400 Respiratory rate 16 /min Shaina Daly JACKSCREW WORKER.TEXTILE PIN WORKER Work Phone: [facility] 09-17-2023 15:04-0400 SaO2% (BldA) [Mass fraction] 97 % Shaina Daly JACKSCREW WORKER.TEXTILE PIN WORKER Work Phone: [facility] 09-17-2023 15:04-0400 Systolic blood pressure 120 mm[Hg] Shainachuyita Daly APRN.CNP Work Phone: [facility] 09-02-2023 15:21-0400 Body temperature 97.5 [degF] Dr. Prince Celeste Work Phone: [facility] 09-02-2023 15:21-0400 Diastolic blood pressure 70 mm[Hg] Dr. Prince Celeste Work Phone: [facility] 09-02-2023 15:21-0400 Heart rate 85 /min Dr. Prince Celeste Work Phone: [facility] 09-02-2023 15:21-0400 Respiratory rate 18 /min Dr. Prince Celeste Work Phone: [facility] 09-02-2023 15:21-0400 SaO2% (BldA) [Mass fraction] 97 % Dr. Prince Celeste Work Phone: [facility] 09-02-2023 15:21-0400 Systolic blood pressure 125 mm[Hg] Dr. Prince Celeste Work Phone: [facility] 09-02-2023 11:52-0400 Body height 165.[address] Prince Celeste Work Phone: [facility] 09-02-2023 11:52-0400 Body mass index (BMI) [Ratio] 24.2 kg/m2 Dr. Prince Celeste Work Phone: [facility] 09-02-2023 11:52-0400 Body weight 66.[address] Prince Celeste Work Phone: [facility] 07-25-2023 16:30-0400 Body weight 64.86 kg Prince Celeste MD Work Phone: [facility] 07-25-2023 16:30-0400 Diastolic blood pressure 64 mm[Hg] Prince Celeste MD Work Phone: [facility] 07-25-2023 16:30-0400 Heart rate 80 /min Prince Celeste MD Work Phone: [facility] 07-25-2023 16:30-0400 Respiratory rate 16 /min Prince Celeste MD Work Phone: [facility] 07-25-2023 16:30-0400 Systolic blood pressure 116 mm[Hg] Prince Celeste MD Work Phone: [facility] 07-18-2023 16:00-0400 Body temperature 97.6 [degF] Dr. Prince Celeste Work Phone: [facility] 07-18-2023 16:00-0400 Diastolic blood pressure 69 mm[Hg] Dr. Prince Celeste Work Phone: [facility] 07-18-2023 16:00-0400 Heart rate 80 /min Dr. Prince Celeste Work Phone: [facility] 07-18-2023 16:00-0400 Respiratory rate 16 /min Dr. Prince Celeste Work Phone: [facility] 07-18-2023 16:00-0400 SaO2% (BldA) [Mass fraction] 99 % Dr. Prince Celeste Work Phone: [facility] 07-18-2023 16:00-0400 Systolic blood pressure 121 mm[Hg] Dr. Prince Celeste Work Phone: [facility] 07-18-2023 10:55-0400 Body height 165.[address] Prince Celeste Work Phone: 9(014)[phone] [place] [address] 07-18-2023 10:55-0400 Body weight 63.[address] Prince Celeste Work Phone: 2(329)[phone] [place] [address] 07-17-2023 15:45-0400 Body mass index (BMI) [Ratio] 23.2 kg/m2 Dr. Prince Celeste Work Phone: 5(577)[phone] [place] [address] 07-09-2023 19:23-0400 Diastolic blood pressure 74 mm[Hg] Prince Celeste MD Work Phone: [facility] 07-09-2023 19:23-0400 Heart rate 64 /min Prince Celeste MD Work Phone: [facility] 07-09-2023 19:23-0400 Systolic blood pressure 146 mm[Hg] Prince Celeste MD Work Phone: [facility] 07-09-2023 19:22-0400 Body temperature 98.1 [degF] Prince Celeste MD Work Phone: [facility] 07-09-2023 19:22-0400 Body weight 67.59 kg Prince Celeste MD Work Phone: [facility] 07-09-2023 19:22-0400 Respiratory rate 16 /min Prince Celeste MD Work Phone: [facility] 06-07-2023 11:39-0500 Body height 165.[address] Prince Celeste Work Phone: [facility] 06-07-2023 11:39-0500 Body mass index (BMI) [Ratio] 25 kg/m2 Dr. Prince Celeste Work Phone: [facility] 06-07-2023 11:39-0500 Body weight 68.[address] Prince Celeste Work Phone: [facility] 06-07-2023 11:39-0500 Diastolic blood pressure 74 mm[Hg] Dr. Prince Celeste Work Phone: [facility] 06-07-2023 11:39-0500 Heart rate 64 /min Dr. Prince Celeste Work Phone: [facility] 06-07-2023 11:39-0500 Respiratory rate 16 /min Dr. Prince Celeste Work Phone: [facility] 06-07-2023 11:39-0500 Systolic blood pressure 121 mm[Hg] Dr. Prince Celeste Work Phone: [facility] 04-12-2023 09:42-0500 Body temperature 98.49 [degF] Marychuy Rishi JACKSCREW WORKER.TEXTILE PIN WORKER Work Phone: [facility] 04-12-2023 09:42-0500 Body weight 68.04 kg Marychuy Garciak JACKSCREW WORKER.TEXTILE PIN WORKER Work Phone: [facility] 04-12-2023 09:42-0500 Diastolic blood pressure 88 mm[Hg] Marychuy Rishi JACKSCREW WORKER.TEXTILE PIN WORKER Work Phone: [facility] 04-12-2023 09:42-0500 Heart rate 59 /min Marychuy Rishi JACKSCREW WORKER.TEXTILE PIN WORKER Work Phone: [facility] 04-12-2023 09:42-0500 Respiratory rate 18 /min Marychuy Rishi JACKSCREW WORKER.TEXTILE PIN WORKER Work Phone: [facility] 04-12-2023 09:42-0500 SaO2% (BldA) [Mass fraction] 97 % Marychuy Garciak JACKSCREW WORKER.TEXTILE PIN WORKER Work Phone: [facility] 04-12-2023 09:42-0500 Systolic blood pressure 170 mm[Hg] Marychuy Rishi JACKSCREW WORKER.TEXTILE PIN WORKER Work Phone: [facility] 01-07-2023 09:01-0400 Body temperature 96.69 [degF] Oliver Gill JACKSCREW WORKER.TEXTILE PIN WORKER Work Phone: [facility] 01-07-2023 09:01-0400 Body weight 65.41 kg Oliver Gill JACKSCREW WORKER.TEXTILE PIN WORKER Work Phone: [facility] 01-07-2023 09:01-0400 Diastolic blood pressure 80 mm[Hg] Oliver Jairo JACKSCREW WORKER.TEXTILE PIN WORKER Work Phone: [facility] 01-07-2023 09:01-0400 Heart rate 62 /min Oliver Jairo JACKSCREW WORKER.TEXTILE PIN WORKER Work Phone: [facility] 01-07-2023 09:01-0400 Respiratory rate 21 /min Oliver Gill JACKSCREW WORKER.TEXTILE PIN WORKER Work Phone: [facility] 01-07-2023 09:01-0400 SaO2% (BldA) [Mass fraction] 95 % Oliver Gill JACKSCREW WORKER.TEXTILE PIN WORKER Work Phone: [facility] 01-07-2023 09:01-0400 Systolic blood pressure 132 mm[Hg] Oliver Jairo JACKSCREW WORKER.TEXTILE PIN WORKER Work Phone: [facility] 11-27-2022 13:37-0400 Body weight 66.[address] Prince Celeste Work Phone: [facility] 11-27-2022 13:37-0400 Diastolic blood pressure 70 mm[Hg] Dr. Prince Celeste Work Phone: [facility] 11-27-2022 13:37-0400 Heart rate 60 /min Dr. Prince Celeste Work Phone: [facility] 11-27-2022 13:37-0400 Respiratory rate 16 /min Dr. Prince Celeste Work Phone: [facility] 11-27-2022 13:37-0400 Systolic blood pressure 123 mm[Hg] Dr. Prince Celeste Work Phone: [facility] 11-27-2022 09:18-0400 Body height 165.[address] Prince Celeste Work Phone: [facility] 11-08-2022 13:34-0400 Body height 162.6 cm Prince Celeste MD Work Phone: [facility] 11-08-2022 13:34-0400 Body weight 66.22 kg Prince Celeste MD Work Phone: [facility] 11-08-2022 13:34-0400 Diastolic blood pressure 60 mm[Hg] Prince Celeste MD Work Phone: [facility] 11-08-2022 13:34-0400 Heart rate 56 /min Prince Celeste MD Work Phone: [facility] 11-08-2022 13:34-0400 Respiratory rate 20 /min Prince Celeste MD Work Phone: [facility] 11-08-2022 13:34-0400 Systolic blood pressure 112 mm[Hg] Prince Celeste MD Work Phone: [facility] 09-27-2022 13:47-0400 Body temperature 98.1 [degF] Patrice Olmos MD Work Phone: [facility] 09-27-2022 13:47-0400 Body weight 65.77 kg Patrice Olmos MD Work Phone: [facility] 09-27-2022 13:47-0400 Diastolic blood pressure 70 mm[Hg] Patrice Olmos MD Work Phone: [facility] 09-27-2022 13:47-0400 Heart rate 72 /min Patrice Olmos MD Work Phone: [facility] 09-27-2022 13:47-0400 Respiratory rate 16 /min Patrice Olmos MD Work Phone: [facility] 09-27-2022 13:47-0400 SaO2% (BldA) [Mass fraction] 96 % Patrice Olmos MD Work Phone: [facility] 09-27-2022 13:47-0400 Systolic blood pressure 122 mm[Hg] Patrice Olmos MD Work Phone: [facility] 05-04-2022 14:24-0500 Body temperature 96.69 [degF] Prince Celeste MD Work Phone: [facility] 05-04-2022 14:24-0500 Body weight 67.13 kg Prince Celeste MD Work Phone: [facility] 05-04-2022 14:24-0500 Diastolic blood pressure 66 mm[Hg] rPince Celeste MD Work Phone: [facility] 05-04-2022 14:24-0500 Heart rate 60 /min Prince Celeste MD Work Phone: [facility] 05-04-2022 14:24-0500 Respiratory rate 16 /min Prince Celeste MD Work Phone: [facility] 05-04-2022 14:24-0500 Systolic blood pressure 120 mm[Hg] Prince Celeste MD Work Phone: [facility] 11-07-2021 16:47-0400 Body height 164.1 cm Prince Celeste MD Work Phone: [facility] 11-07-2021 16:47-0400 Body temperature 96.8 [degF] Prince Celeste MD Work Phone: [facility] 11-07-2021 16:47-0400 Body weight 67.59 kg Prince Celeste MD Work Phone: [facility] 11-07-2021 16:47-0400 Diastolic blood pressure 68 mm[Hg] Prince Celeste MD Work Phone: [facility] 11-07-2021 16:47-0400 Heart rate 56 /min Prince Celeste MD Work Phone: [facility] 11-07-2021 16:47-0400 Respiratory rate 18 /min Prince Celeste MD Work Phone: [facility] 11-07-2021 16:47-0400 Systolic blood pressure 130 mm[Hg] Prince Celeste MD Work Phone: [facility] 10-05-2021 13:03-0400 Body height 165.[address] Prince Celeste Work Phone: [facility] Work Phone: 10-05-2021 13:03-0400 Body mass index (BMI) [Ratio] 25.2 kg/m2 Dr. Prince Celeste Work Phone: [facility] Work Phone: 10-05-2021 13:03-0400 Body weight 68.[address] Prince Celeste Work Phone: [facility] Work Phone: 10-05-2021 13:03-0400 Diastolic blood pressure 78 mm[Hg] Dr. Prince Celeste Work Phone: [facility] Work Phone: 10-05-2021 13:03-0400 Heart rate 64 /min Dr. Prince Celeste Work Phone: [facility] Work Phone: 10-05-2021 13:03-0400 Respiratory rate 18 /min Dr. Prince Celeste Work Phone: [facility] Work Phone: 10-05-2021 13:03-0400 Systolic blood pressure 138 mm[Hg] Dr. Prince Celeste Work Phone: [facility] Work Phone: 11-27-2016 13:44-0400 BMI (Body Mass Index) 26.47 kg/m2 Janiya Connors [facility] Work Phone: 11-27-2016 13:44-0400 BP Diastolic 60 mm[Hg] Evitamarivel Dory [facility] Work Phone: 11-27-2016 13:44-0400 BP Systolic 118 mm[Hg] [facility] Work Phone: 11-27-2016 13:44-0400 Height 167.64 cm Evitamarivel Dory [facility] Work Phone: 11-27-2016 13:44-0400 Pulse (Heart Rate) 80 /min [facility] Work Phone: 11-27-2016 13:44-0400 Respiratory Rate 16 /min Evitamarivel Dory [facility] Work Phone: 11-27-2016 13:44-0400 Weight 74.39 kg Janiya [facility] Work Phone: 06-01-2016 13:26-0500 BMI (Body Mass Index) 26.47 kg/m2 Nga Roy PA-C [facility] Work Phone: 06-01-2016 13:26-0500 BP Diastolic 70 mm[Hg] Nga Roy PA-C [facility] Work Phone: 06-01-2016 13:26-0500 BP Systolic 120 mm[Hg] Nga Roy PA-C [facility] Work Phone: 06-01-2016 13:26-0500 BSA (Body Surface Area) 1.84 m2 Nga Roy PA-C [facility] Work Phone: 06-01-2016 13:26-050 Pulse (Heart Rate) 64 /min Nga Roy PA-C [facility] Work Phone: 06-01-2016 13:26-050 Respiratory Rate 16 /min Nga Roy PA-C [facility] Work Phone: 06-01-2016 13:26-050 Weight 74.39 kg Nga Roy PA-C [facility] Work Phone: 06-01-2015 14:25-0500 Heart rate 63 /min Johann Simmons [facility] Work Phone: 11-28-2012 11:09-0400 Heart rate 408 ms Johann Rahmanis [facility] Work Phone: 08-14-2011 14:14-0400 Height 167.64 cm Nga Roy PA-C [facility] Work Phone: Encounters Encounter Date Encounter Type Care Provider Facility Start: 09-02-2024 End: 09-02-2024 Follow-up encounter Juanis Hawthorne APRN.CNP Work Phone: [facility] Comment on above: foot xray results Start: 08-26-2024 End: 08-26-2024 Subsequent hospital visit by physician Xr [facility] Work Phone: Radiology Comment on above: Left foot pain [M79. 672] Start: 08-26-2024 End: 08-26-2024 Office outpatient visit 15 minutes Juanis Hawthorne APRN.CNP Work Phone: [facility] Comment on above: Left foot pain (Prim robbie Dx) Start: 08-26-2024 End: 08-26-2024 ambulatory JUANIS VALE Facility:[facility] Start: 08-25-2024 End: 08-25-2024 ambulatory Prince Celeste MD Work Phone: [facility] Comment on above: Left Foot Pain Start: 08-21-2024 End: 08-22-2024 Refill Prince Celeste MD Work Phone: [facility] Comment on above: Refill Request Start: 07-29-2024 End: 07-30-2024 Telephone encounter Prince Celeste MD Work Phone: [facility] Comment on above: Patient Update; Haley ent Question Start: 07-24-2024 ambulatory Prince Celeste Facili ty:[facility] Start: 07-24-2024 Non-patient / Non-visit Dr. David hardy MD -[facility] Start: 07-23-2024 End: 07-23-[address] Prince Celeste MD Work Phone: [facility] Work Phone: Start: 07-23-2024 End: 07-23-[address] David Fox MD -[facility] Work Phone: Start: 07-23-2024 End: 07-23-2024 ambulatory Prince Celeste Facility:[facility] Start: 07-08-2024 End: 07-09-2024 Refill Prince Celeste MD Work Phone: [address] [place] [address] Start: 07-07-2024 End: 07-07-2024 ambulatory David Fox Facility:[facility] Start: 07-07-2024 End: 07-07-[address] 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 Alayna Diamond DO -Laboratory Work Phone: Start: 05-15-2024 End: 05-15-2024 ambulatory Prince Celeste Facility:[facility] Start: 05-13-2024 End: 05-13-2024 Orders Only Prince Celeste MD Work Phone: [facility] Comment on above: Type 2 diabetes victoriano itus with stage 3a chronic kidney disease, without long-term current use of insulin (HCC) (Primary Dx) Results Start: 05-12-2024 End: 05-12-2024 ambulatory PRINCE CELESTE Facility:[facility] Start: 05-12-2024 End: 05-12-2024 Office outpatient visit 25 minutes Prince Celeste MD Work Phone: [facility] Comment on above: Essential hypertensi on (Primary Dx); Encounter for immunization; Type 2 diabetes mellitus with stage 3a chronic kidney disease, without long-term current use of insulin (HCC); Post zoster neuralgia; Pure hypercholesterolemia Start: 03-31-2024 End: 04-01-2024 Refill Prince Celeste MD Work Phone: [facility] Comment on above: Refill Request; Haley ent Update Start: 02-11-2024 End: 02-11-2024 ambulatory David Ruddy Facility:[facility] Start: 02-05-2024 End: 02-05-2024 ambulatory Prince Celeste MD Work Phone: [facility] Comment on above: Allied Health Visit (Medication Adherence Outreach ) Start: 01-16-2024 End: 01-16-2024 ambulatory Jade Malave [facility] [place] Start: 01-16-2024 End: 01-16-2024 Patient encounter procedure Jade Malave MA [facility] [place] Comment on above: Population Health Na vigation Outreach ([place] Medication Adherence ) Start: 01-15-2024 ambulatory David Ruddy Facility:[facility] Start: 01-15-2024 End: 01-15-2024 ambulatory David Ruddy Facility:[facility] Start: 01-09-2024 End: 01-09-2024 ambulatory David Ruddy Facility:[facility] Start: 01-01-2024 End: 01-01-2024 ambulatory David Ruddy Facility:[facility] Start: 11-14-2023 Telephone encounter Prince ko MD Work Phone: [facility] Comment on above: Results Start: 11-12-2023 End: 11-12-2023 ambulatory PRINCE CELESTE Facility:[facility] Start: 11-12-2023 End: 11-12-2023 Patient encounter procedure Prince Celeste MD Work Phone: [facility] Comment on above: Medicare annual well ness visit, subsequent (Primary Dx); Post zoster neuralgia; Type 2 diabetes mellitus with stage 3a chronic kidney disease, without long-term current use of insulin (HCC); Essential hypertension; Need for COVID-19 vaccine Start: 11-12-2023 End: 11-12-2023 ambulatory PRINCE CELESTE Facility:[facility] Start: 11-02-2023 Telephone encounter Prince ko MD Work Phone: [facility] Comment on above: Medication questions Start: 11-01-2023 End: 11-01-2023 ambulatory PRINCE CELESTE Facility:[facility] Start: 11-01-2023 End: 11-01-2023 Patient encounter procedure Prince Celeste MD Work Phone: [facility] Comment on above: Hypoglycemia (Primar y Dx); Post zoster neuralgia; Type 2 diabetes mellitus with stage 3a chronic kidney disease, without long-term current use of insulin (HCC); Insomnia, unspecified type; Impotence of organic origin Start: 10-30-2023 Telephone encounter Prince ko MD Work Phone: [facility] Comment on above: low blood sugars Start: 10-29-2023 Telephone encounter Prince ko MD Work Phone: [facility] Comment on above: Patient Update Start: 10-18-2023 ambulatory Sergio fan [place] [facility] [place] Start: 10-18-2023 Patient encounter procedure Da jazmine Grider [facility] [place] Comment on above: Population Health Na vigation Outreach ([place] [facility] CURRENT ROSTER workbench - AWV, HCC gap closure - [facility]) Start: 10-03-2023 Telephone encounter Prince ko MD Work Phone: [facility] Comment on above: Medication Question Start: 10-01-2023 ambulatory Jade Laga natasha [place] [facility] [place] Start: 10-01-2023 Patient encounter procedure El issacjimbo Frieda [facility] [place] Comment on above: Population Health Na vigation Outreach ([place] Med Adherence ) Start: 09-20-2023 Refill Prince silveira MD Work Phone: [facility] Comment on above: error Start: 09-19-2023 Refill Prince silveira MD Work Phone: [facility] Comment on above: Refill Request Start: 09-18-2023 Telephone encounter Nichol CHEN Work Phone: [facility] Comment on above: Results Start: 09-18-2023 End: 09-18-2023 ambulatory PRINCE ECLESTE Facility:[facility] Start: 09-18-2023 End: 09-18-2023 Subsequent hospital visit by physician Ben [facility] Work Phone: Radiology Comment on above: Contusion of right g reat toe with damage to nail, initial encounter [S90.211A] Start: 09-17-2023 End: 09-17-2023 ambulatory PRINCE CELESTE Facility:[facility] Start: 09-17-2023 End: 09-17-2023 Patient encounter procedure Shaina Daly JACKSCREW WORKER.TEXTILE PIN WORKER Work Phone: [facility] Comment on above: Contusion of right g reat toe with damage to nail, initial encounter (Primary Dx); Subungual hematoma of great toe of right foot, initial encounter Start: 09-02-2023 End: 09-02-2023 Emergency department patient visit Dr. Prince Celeste Work Phone: [facility]-Emergency Department Work Phone: Start: 08-29-2023 Telephone encounter Prince ko MD Work Phone: [facility] Comment on above: Continued shingles p ain Start: 08-13-2023 End: 08-13-[address] Prince Celeste Work Phone: [facility] Work Phone: Start: 08-13-2023 End: 08-13-[address] Prince Celeste Work Phone: [facility]-Laboratory Work Phone: Start: 08-10-2023 Telephone encounter Prince ko MD Work Phone: [facility] Comment on above: question Start: 08-07-2023 ambulatory Prince silveira MD Work Phone: [facility] Comment on above: Tremor Start: 08-07-2023 Telephone encounter Prince ko MD Work Phone: [facility] Comment on above: Patient Update Start: 08-06-2023 ambulatory No Pcp JACKSCREW WORKER [email or web address] Comment on above: Refill Request Start: 08-01-2023 Telephone encounter Prince ko MD Work Phone: [facility] Comment on above: Medication Problem; Consult Start: 07-27-2023 Telephone encounter Prince ko MD Work Phone: [facility] Comment on above: Patient Question Start: 07-26-2023 Telephone encounter Prince ko MD Work Phone: [facility] Comment on above: Patient Question Start: 07-25-2023 End: 07-25-2023 Patient encounter procedure Prince Celeste MD Work Phone: [facility] Comment on above: Herpes zoster kerati tis (Primary Dx); Abducens (sixth) nerve palsy, left; Diplopia; Mouth sores; Post zoster neuralgia Start: 07-18-2023 Non-patient / Non-visit Dr. Bria Celeste Work Phone: [facility] Work Phone: Start: 07-17-2023 Non-patient / Non-visit Dr. Bria Celeste Work Phone: [facility] Work Phone: Start: 07-17-2023 End: 07-18-2023 Evaluation and management of inpatient Dr. Prince Celeste [facility] Work [facility]: Start: 07-12-2023 Telephone encounter Prince ko MD Work Phone: [facility] Comment on above: Patient Update; Medi cation Request Start: 07-09-2023 End: 07-09-2023 Patient encounter procedure Prince Celeste MD Work Phone: [facility] Comment on above: Injury of head, init ial encounter (Primary Dx); Type 2 diabetes mellitus with stage 3a chronic kidney disease, without long-term current use of insulin (HCC); Allergic conjunctivitis of both eyes; Pure hypercholesterolemia; Rash and nonspecific skin eruption; Aphthae, oral Start: 06-22-2023 Refill Prince silveira MD Work Phone: [facility] Comment on above: Refill Request Start: 06-21-2023 End: 06-21-2023 Patient encounter procedure Emilie Tang Work Phone: Podiatry Comment on above: 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 Prince Celeste Work Phone: [facility] Work Phone: Start: 06-05-2023 End: 06-05-[address] Prince Celeste Work Phone: [facility] Work Phone: Start: 06-05-2023 End: 06-05-[address] Prince Celeste Work Phone: [facility]-Laboratory Work Phone: Start: 04-12-2023 End: 04-12-2023 Patient encounter procedure Marychuy Rishi MARTINEZTEXTILE PIN WORKER Work Phone: [facility] Comment on above: URI with cough and c ongestion (Primary Dx); Sore throat; Flu-like symptoms Start: 03-22-2023 Telephone encounter Prince ko MD Work Phone: [facility] Comment on above: Patient Question Start: 01-16-2023 Non-patient / Non-visit Dr. Bria Celeste Work Phone: [facility] Work Phone: Start: 01-15-2023 Non-patient / Non-visit Dr. Bria Celeste Work Phone: [facility] Work Phone: Start: 01-10-2023 Non-patient / Non-visit Dr. Bria Celeste Work Phone: [facility] Start: 01-10-2023 End: 01-10-[address] Prince Celeste Work Phone: [facility] Work Phone: Start: 01-10-2023 End: 01-10-[address] Prince Celeste Work Phone: [facility] Work Phone: Start: 01-07-2023 End: 01-07-2023 Patient encounter procedure Oliver Gill MARIO ALBERTO Work Phone: [facility] Comment on above: Feared condition not demonstrated (Primary Dx) Start: 12-26-2022 End: 12-26-[address] Prince Celeste Work Phone: [facility] Work Phone: Start: 12-26-2022 End: 12-26-[address] [facility] Celeste [facility] [facility] Work Phone: Start: 11-29-2022 End: 11-29-[address] Prince Celeste Work Phone: [facility] Work Phone: Start: 11-29-2022 End: 11-29-[address] Prince Celeste Work Phone: [facility] Work Phone: Start: 11-27-2022 End: 11-27-[address] Prince Celeste Work Phone: [facility] Work Phone: Start: 11-08-2022 End: 11-08-2022 Patient encounter procedure Prince Celeste MD Work Phone: [facility] [place] Comment on above: Medicare annual well ness visit, subsequent (Primary Dx); Insomnia, unspecified type; Type 2 diabetes mellitus with stage 3b chronic kidney disease, without long-term current use of insulin (HCC); Essential hypertension; Impotence of organic origin; Malignant neoplasm of urinary bladder, unspecified site (HCC); Plantar wart of left foot; Need for COVID-19 vaccine Start: 10-25-2022 End: 10-25-2022 [facility] Work Phone: Start: 10-25-2022 End: 10-25-2022 [facility] Start: 09-27-2022 End: 09-27-2022 [facility] Work [facility]: Start: 09-27-2022 End: 09-27-2022 Subsequent hospital visit by physician [facility] Work Phone: Radiology Comment on above: Elbow pain, left [M2 5.522] Start: 09-27-2022 End: 09-27-2022 Patient encounter procedure Patrice Olmos MD Work Phone: [facility] Comment on above: Elbow pain, left (Pr imary Dx) Start: 09-20-2022 End: 09-20-2022 [facility] Work Phone: Start: 09-20-2022 End: 09-20-2022 Patient encounter procedure [facility] Work Phone: Start: 08-14-2022 Refill Prince silveira MD Work Phone: [facility] [place] Comment on above: Refill Request Start: 07-26-2022 End: 07-26-2022 [facility] Work Phone: Start: 07-26-2022 End: 07-26-2022 [facility] Start: 07-19-2022 ambulatory Prince silveira MD Work Phone: [facility] Comment on above: Allied Health Visit (Medication Adherence Outreach/) Start: 06-05-2022 Refill Prince silveira MD Work Phone: [facility] [place] Comment on above: Refill Request Start: 05-24-2022 End: 05-24-2022 Patient encounter procedure Emilie Tang Work Phone: Podiatry Comment on above: Other diabetic neuro logical complication associated with type 2 diabetes mellitus (HCC) (Primary Dx); Sprain of anterior talofibular ligament of left ankle, initial encounter; Hyperkeratosis Start: 05-05-2022 Telephone encounter Emilie Robbins Work Phone: Podiatry Comment on above: Patient Question Patient Request; Pat ient Update Start: 05-04-2022 End: 05-04-2022 Patient encounter procedure Prince Celeste MD Work Phone: [facility] [place] Comment on above: Type 2 diabetes victoriano itus with stage 3b chronic kidney disease, without long-term current use of insulin (HCC) (Primary Dx); Hypertensive kidney disease with stage 3b chronic kidney disease (HCC); Essential hypertension; Pure hypercholesterolemia; Insomnia, unspecified type; Acute foot pain, left Start: 04-25-2022 Telephone encounter Prince ko MD Work Phone: [facility] [place] Comment on above: Results Start: 04-20-2022 End: 04-20-2022 Subsequent hospital visit by physician [facility] [place] Work Phone: Radiology Comment on above: Acute foot pain, lef t [M79.672] Start: 03-03-2022 Refill Prince silveira MD Work Phone: [facility] [place] Comment on above: Refill Request Start: 02-28-2022 Telephone encounter Prince ko MD Work Phone: [facility] [place] Comment on above: Patient Request Start: 11-08-2021 Telephone encounter Prince ko MD Work Phone: [facility] [place] Comment on above: Medication Update Start: 11-07-2021 End: 11-07-2021 Patient encounter procedure Prince Celeste MD Work Phone: [facility] [place] Comment on above: Medicare annual well ness visit, subsequent (Primary Dx); Hypertensive kidney disease with stage 3b chronic kidney disease (HCC); Type 2 diabetes mellitus with stage 3b chronic kidney disease, without long-term current use of insulin (HCC); Essential hypertension; Pure hypercholesterolemia Start: 10-21-2021 Non-patient / Non-visit Dr. Bria Celeste Work Phone: [facility] Start: 10-21-2021 End: 10-21-[address] Prince Celeste Work Phone: [facility] Start: 10-05-2021 End: 10-05-[address] Prince Celeste Work Phone: [facility] Start: 08-30-2021 Refill Prince silveira MD Work Phone: [facility] [place] Comment on above: Refill Request Start: 08-10-2021 End: 08-10-2021 [facility] Start: 08-09-2021 Telephone encounter Prince ko MD Work Phone: [facility] [place] Comment on above: Results Start: 08-08-2021 Refill Prince silveira MD Work Phone: [facility] [place] Comment on above: Refill Request Start: 07-26-2021 ambulatory Prince silveira MD Work Phone: Internal Medicine [facility] Start: 07-11-2021 End: 07-11-2021 [facility] Start: 05-10-2021 End: 05-10-2021 [facility] Start: 07-14-2020 End: 07-14-2020 Subsequent hospital visit by physician [facility] Work Phone: Radiology Comment on above: 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 Prince Celeste MD Work Phone: Start: 05-12-2024 PFIZER-BIONTECH COVI D-19 VACCINE AGE 12+ YR (COMIRNATY) Prince Celeste MD Work Phone: Start: 11-12-2023 PFIZER-BIONTECH COVI D-19 VACCINE (2022- SEASON) AGE 12+ YR Prince Celeste MD Work Phone: Start: 11-12-2023 Adult depression scr eening assessment Prince Celeste MD Work Phone: Start: 09-18-2023 Radex toe minimum 2 views Shaina Daly JACKSCREW WORKER.TEXTILE PIN WORKER Work Phone: Start: 09-02-2023 Computed tomography of soft tissues of neck without contrast Dr. Prince Celeste Work Phone: Start: 07-17-2023 MRI of brain without contrast Dr. Prince Celeste Work Phone: Start: 07-17-2023 CT of head without contrast Dr. Prince Celeste Work Phone: Start: 04-12-2023 COVID & INFLUENZA A/ B & RSV NAAT, ROUTINE Marychuy Blackwell JACKSCREW WORKER.TEXTILE PIN WORKER Work Phone: Start: 04-12-2023 STREP A MOLECULAR (POC) Marychuy Blackwell JACKSCREW WORKER.TEXTILE PIN WORKER Work Phone: Start: 11-08-2022 PFIZER-BIONTECH COVI D-19 BIVALENT VACCINE, AGE 12+ YR Prince Celeste MD Work Phone: Start: 09-27-2022 Radex elbow complete minimum 3 views Patrice Olmos MD Work Phone: Start: 09-27-2022 Urine culture Start: 04-20-2022 Radex foot complete minimum 3 views Prince Celeste MD Work Phone: Start: 11-07-2021 Adult depression scr eening assessment Prince Celeste MD Work Phone: Start: 10-21-2021 Radionuclide imaging of perfusion of myocardium under exercise stress Dr. Prince Celeste Work Phone: Start: 07-19-2020 Adult depression scr eening assessment Prince Celeste MD Work Phone: Start: 07-14-2020 Radex hand minimum 3 views Prince Celeste MD Work Phone: Start: 11-27-2016 End: 11-27-2016 Dietary management education, guidance, and counseling Johann Simmons Start: 11-27-2016 End: 05-23-2017 *Hepatic Function Panel Hung Markham MD Start: 11-27-2016 End: 11-27-2016 Follow Up Appt 6 months Hung Markham MD Start: 11-27-2016 End: 05-23-2017 Lipid panel [AGGREGATE] Hung Markham MD Start: 11-27-2016 End: 11-27-2016 MMM Hung Markham MD Start: 10-24-2016 End: 11-24-2016 *Hepatic Function Panel Nga Roy PA-C Work Phone: Start: 10-24-2016 End: 11-24-2016 Lipid panel [AGGREGATE] Nga Roy PA-C Work Phone: Start: 06-01-2016 End: 06-01-2016 Follow Up Appt Other Nga Roy PA-C Work Phone: Start: 04-26-2016 End: 04-26-2016 *Hepatic Function Panel Nga Roy PA-C Work Phone: Start: 04-26-2016 End: 04-26-2016 Lipid panel [AGGREGATE] Nga Roy PA-C Work Phone: Start: 04-07-2016 Judah Best MD Work Phone: Start: 11-29-2015 End: 11-29-2015 Dietary management education, guidance, and counseling Johann Simmons Start: 11-29-2015 End: 11-30-2015 *BMP Hung Markham MD Start: 11-29-2015 End: 11-30-2015 CBC W Auto Differential panel - Blood Hung Markham MD Start: 11-29-2015 End: 05-25-2016 Follow Up Appt 6 months Hung Markham MD Start: 11-29-2015 End: 05-25-2016 MMM Hung Markham MD Start: 11-29-2015 End: 11-30-2015 Thyroid stimulating hormone (TSH) Hung Markham MD Start: 11-29-2015 End: 11-30-2015 Thyroxine (T4) Hung Markham MD Start: 10-06-2015 End: 10-27-2015 *Hepatic Function Panel Hung Markham MD Start: 10-06-2015 End: 10-27-2015 Lipid panel [AGGREGATE] Hung Markham MD Start: 06-01-2015 End: 06-01-2015 Electrocardiogram, complete Nga Roy PA-C Work Phone: Start: 06-01-2015 End: 06-01-2015 Follow Up Appt 6 months Nga Roy PA-C Work Phone: Start: 06-01-2015 End: 06-01-2015 PFM Nga Roy PA-C Work Phone: Start: 04-06-2015 End: 04-06-2015 *Hepatic Function Panel Hung Markham MD Start: 04-06-2015 End: 04-06-2015 Lipid panel [AGGREGATE] Hung Markham MD Start: 11-30-2014 End: 12-01-2014 Documentation of current medications Hung Markham MD Start: 11-30-2014 End: 11-30-2014 Follow Up Appt 6 months Hung Markham MD Start: 11-30-2014 End: 11-30-2014 MMM Hung Markham MD Start: 09-28-2014 End: 10-08-2014 *Hepatic Function Panel Hung Markham MD Start: 09-28-2014 End: 10-08-2014 Lipid panel [AGGREGATE] Hung Markham MD Start: 05-07-2014 End: 05-08-2014 *UA - Urinalysis w/o Micro Nga Roy PA-C Work Phone: Start: 05-07-2014 End: 05-07-2014 Nurse, Teaching, Wound Check (no charge) Hung Markham MD Start: 05-06-2014 End: 05-08-2014 *BMP Hung Markham MD Start: 05-06-2014 End: 05-08-2014 aPTT Hung Markham MD Start: 05-06-2014 End: 05-08-2014 CBC W Auto Differential panel - Blood Hung Markham MD Start: 05-06-2014 End: 05-15-2014 Chest x-ray Hung Markham MD Start: 05-06-2014 End: 05-08-2014 Coagulation factor induced.INR assay in platelet poor plasma Hung Markham MD Start: 05-06-2014 End: 05-15-2014 Left Heart Cath W/Grafts Hung sanders MD Start: 04-20-2014 End: 05-07-2014 *BMP Hung Markham MD Start: 04-20-2014 End: 05-07-2014 *CBC with Differential Hung Markham MD Start: 04-20-2014 End: 05-07-2014 Echocardiography Hung Markham MD Start: 04-20-2014 End: 04-20-2014 Electrocardiogram, complete Hung Markham MD Start: 04-20-2014 End: 04-20-2014 Follow Up Appt 6 months Hung Markham MD Start: 04-20-2014 End: 05-07-2014 Nuclear stress test -exercise Hung Markham MD Start: 04-20-2014 End: 04-20-2014 PFM Hung Markham MD Start: 04-20-2014 End: 05-07-2014 Thyroid stimulating hormone (TSH) Hung Markham MD Start: 04-20-2014 End: 05-07-2014 Thyroxine (T4) Hung Markham MD Start: 02-21-2014 End: 03-26-2014 *Hepatic Function Panel Hung Markham MD Start: 02-21-2014 End: 03-26-2014 Lipid panel [AGGREGATE] Hung Markham MD Start: 09-29-2013 End: 09-29-2013 Follow Up Appt 6 months Nga Roy PA-C Work Phone: Start: 09-29-2013 End: 09-29-2013 Follow Up BP Check Nga Roy PA-C Work Phone: Start: 09-29-2013 End: 09-29-2013 PFM Nga Roy PA-C Work Phone: Start: 08-21-2013 End: 09-22-2013 *Hepatic Function Panel Hung Markham MD Start: 08-21-2013 End: 09-22-2013 Lipid panel [AGGREGATE] Hung Markham MD Start: 03-06-2013 End: 03-06-2013 Follow Up Appt 6 months Hung Markham MD Start: 03-06-2013 End: 03-06-2013 MMM Hung Markham MD Start: 02-26-2013 End: 02-26-2013 *Hepatic Function Panel Hung Markham MD Start: 02-26-2013 End: 02-26-2013 Lipid panel [AGGREGATE] Hung Markham MD Start: 01-21-2013 End: 02-14-2013 *Hepatic Function Panel Hung Markham MD Start: 01-21-2013 End: 02-14-2013 Lipid panel [AGGREGATE] Hung Markham MD Start: 11-28-2012 End: 11-28-2012 Electrocardiogram, complete Nga Roy PA-C Work Phone: Start: 11-28-2012 End: 11-28-2012 Follow Up Appt Other Nga Roy PA-C Work Phone: Start: 11-28-2012 End: 11-28-2012 PFM Nga Roy PA-C Work Phone: Start: 08-21-2012 End: 08-21-2012 Follow Up Appt 6 months Hung Markham MD Start: 08-21-2012 End: 08-21-2012 PFM Hung Markham MD Start: 02-19-2012 End: 08-21-2012 *Hepatic Function Panel Hung Markham MD Start: 02-19-2012 End: 02-19-2012 Follow Up Appt 6 months Hung Markham MD Start: 02-19-2012 End: 08-21-2012 Lipid panel [AGGREGATE] Hung Markham MD Start: 02-16-2012 End: 08-21-2012 *Hepatic Function Panel Hung Markham MD Start: 02-16-2012 End: 08-21-2012 Lipid panel [AGGREGATE] Hung Markham MD Start: 08-14-2011 End: 08-15-2011 *Hepatic Function Panel Hung Markham MD Start: 08-14-2011 End: 08-14-2011 Follow Up Appt 6 months Hung Markham MD Start: 08-14-2011 End: 08-15-2011 Lipid panel [AGGREGATE] Hung Markham MD Start: 06-21-2008 History of coronary artery bypass grafting Aortocoronary bypass status Dr. David Fox MD Comment on above: 06/30/08 Emergency 5- vessel coronary artery bypass grafting utilizing ESCOBAR to LAD, SVG to first and second branches of anterior descending as well as SVG to the CX and RCA Plan of Treatment Date Care Activity Detail Author Start: 04-07-2026 Colonoscopy COLONOSCOPY [facility] Start: 04-07-2026 COLORECTAL CANCER SCREENING COLORECTAL CANCER SCREENING [facility] Start: 08-26-2025 Annual PCP Team Chronic Disease Visit Annual PCP Team Chronic Disease Visit [facility] Start: 08-26-2025 BP Controlled (<130/80) BP Controlled (<130/80) [facility] Start: 06-23-2025 End: 06-23-2025 Patient encounter procedure Podiatry Comment on above: 1 year diabetic foot check Start: 05-13-2025 End: 05-13-2025 Patient encounter procedure 05/13/2025 2:20 PM EST Office Visit [facility] [place] [address] [place] [id number] Prince Celeste MD [address] [place] [address] 1 yr follow up [facility] [place] Comment on above: 1 yr follow up Start: 05-12-2025 Annual PCP Team Chronic Disease Visit Annual PCP Team Chronic Disease Visit [facility] Start: 05-12-2025 BP Controlled (<130/80) BP Controlled (<130/80) [facility] in Start: 05-12-2025 Complete blood count Hemoglobin/Hematocrit [facility] Start: 05-12-2025 Creatinine measurement Serum Creatinine [facility] Start: 05-12-2025 Hepatitis B screening Urine Albumin:Creatinine Ratio [facility] Start: 11-11-2024 Annual PCP Team Chronic Disease Visit Annual PCP Team Chronic Disease Visit [facility] Start: 11-11-2024 Anxiety Screening Anxiety Screening [facility] Start: 11-11-2024 BP Controlled (<130/80) BP Controlled (<130/80) [facility] Start: 11-11-2024 Creatinine measurement Serum Creatinine [facility] Start: 11-11-2024 Depression Screening Depression Screening [facility] Start: 11-11-2024 Diabetic foot examination Diabetic Foot Exam [facility] Start: 11-11-2024 Hepatitis B surface antibody level LDL Cholesterol [facility] Start: 11-10-2024 End: 11-10-2024 Patient encounter procedure 11/10/2024 1:40 PM EDT Office Visit [facility] [place] [address] [place], [place] [address] Juanis Hawthorne, JACKSCREW WORKER.TEXTILE PIN WORKER [address] [place] [address] annual medicare [facility] [place] Comment on above: annual medicare Start: 11-09-2024 End: 02-08-2025 Comprehensive metabolic 2000 panel - Serum or Plasma COMPREHENSIVE METABOLIC PANEL Lab Routine Pure hypercholesterolemia Expected: 11/09/2024, Expires: 02/08/2025 [facility] Comment on above: Expected: 11/09/2024, Expires: Start: 11-09-2024 Covid-19 Vaccine () Covid-19 Vaccine () [facility] Start: 11-09-2024 End: 02-08-2025 Hemoglobin A1c in Blood HEMOGLOBIN A1C Lab Routine Type 2 diabetes mellitus with stage 3a chronic kidney disease, without long-term current use of insulin (HCC) Expected: 11/09/2024, Expires: 02/08/2025 [facility] Comment on above: Expected: 11/09/2024, Expires: Start: 11-09-2024 Hemoglobin A1c measurement HbA1C [facility] Start: 11-09-2024 End: 02-08-2025 Lipid 1996 panel - Serum or Plasma LIPID PANEL BASIC Lab Routine Pure hypercholesterolemia Expected: 11/09/2024, Expires: 02/08/2025 [facility] Comment on above: Expected: 11/09/2024, Expires: Start: 10-31-2024 Annual PCP Team Chronic Disease Visit Annual PCP Team Chronic Disease Visit [facility] Start: 10-31-2024 BP Controlled (<130/80) BP Controlled (<130/80) [facility] Start: 09-16-2024 BP Controlled (<130/80) BP Controlled (<130/80) [facility] Start: 08-26-2024 End: 08-26-2024 Patient encounter procedure 08/26/2024 11:40 AM EDT Office Visit [facility] [place] [address] [place] [address] Juanis Hawthorne, JACKSCREW WORKER.TEXTILE PIN WORKER [address] [place] [address] Left Foot Arch Painful. See triage [facility] [place] Comment on above: Left Foot Arch Painful. See triage Start: 07-24-2024 Annual PCP Team Chronic Disease Visit Annual PCP Team Chronic Disease Visit [facility] Start: 07-24-2024 BP Controlled (<130/80) BP Controlled (<130/80) [facility] Start: 07-08-2024 Annual PCP Team Chronic Disease Visit Annual PCP Team Chronic Disease Visit [facility] Start: 06-23-2024 End: 06-23-2024 Patient encounter procedure Podiatry Comment on above: 1 year diabetic foot check Start: 06-12-2024 Urine microalbumin profile [facility] Start: 05-14-2024 Annual PCP Team Chronic Disease Visit Annual PCP Team Chronic Disease Visit [facility] Start: 05-14-2024 BP Controlled (<130/80) BP Controlled (<130/80) [facility] Start: 05-14-2024 Diabetic foot examination Diabetic Foot Exam [facility] Start: 05-14-2024 Hemoglobin A1c measurement HbA1C [facility] Start: 05-14-2024 Hepatitis B screening Urine Albumin:Creatinine Ratio [facility] Start: 05-12-2024 End: 08-11-2024 Basic metabolic 2000 panel - Serum or Plasma [facility] Comment on above: Expected: 05/12/2024, Expires: Start: 05-12-2024 End: 08-11-2024 CBC panel - Blood by Automated count [facility] Work Phone: Comment on above: Expected: 05/12/2024, Expires: Start: 05-12-2024 End: 08-11-2024 Hemoglobin A1c in Blood [facility] Comment on above: Expected: 05/12/2024, Expires: Start: 05-12-2024 End: 08-11-2024 Microalbumin/Creatinine [Mass Ratio] in Urine [facility] Comment on above: Expected: 05/12/2024, Expires: Start: 05-12-2024 End: 05-12-2024 Patient encounter procedure 05/12/2024 12:40 PM EST Office Visit [facility] [place] [address] [place] [address] Prince Celeste MD [address] [place], [place] [address] 6 month follow-up [facility] [place] Comment on above: 6 month follow-up Start: 05-10-2024 Complete blood count Hemoglobin/Hematocrit [facility] Start: 05-10-2024 Creatinine measurement Serum Creatinine [facility] Start: 04-23-2024 Advance Directive Discussion Advance Directive Discussion [facility] Start: 03-14-2024 Covid-19 Vaccine () Covid-19 Vaccine () [facility] Start: 01-07-2024 Covid-19 Vaccine () Covid-19 Vaccine () [facility] Start: 12-23-2023 Influenza vaccination Influenza Vaccine (#1) [facility] Start: 11-12-2023 End: 11-12-2023 Patient encounter procedure 11/12/2023 1:40 PM EDT Office Visit [facility] [place] [address] [facility] [place] [address] Prince Celeste MD [address] [place] [address] Medicare Wellness w/6 month follow-up [facility] [place] Comment on above: Medicare Wellness w/6 month follow-up Start: 11-09-2023 ANNUAL PCP TEAM CHRONIC DISEASE VISIT ANNUAL PCP TEAM CHRONIC DISEASE VISIT [facility] Start: 11-09-2023 BP CONTROLLED (<130/80) BP CONTROLLED (<130/80) [facility] Start: 11-08-2023 Hemoglobin A1c measurement HbA1C [facility] Start: 11-04-2023 Creatinine measurement Serum Creatinine [facility] Start: 11-04-2023 SERUM CREATININE SERUM CREATININE [facility] Start: 11-01-2023 End: 11-01-2023 Patient encounter procedure 11/01/2023 4:20 PM EDT Office Visit [facility] [place] [address] [facility] [place] [address] rPince Celeste MD [address] [place] [address] low blood sugars [facility] [place] Comment on above: low blood sugars Start: 09-28-2023 BP CONTROLLED (<130/80) BP CONTROLLED (<130/80) [facility] Start: 09-02-2023 [facility] Start: 07-27-2023 Hepatitis B surface antibody level LDL CHOLESTEROL [facility] Start: 07-18-2023 Patient discharge [facility] Start: 07-17-2023 Following clinical pathway protocol [facility] Start: 07-17-2023 Assessment of risk of venous thromboembolism [facility] Start: 07-17-2023 Care regimes management [facility] Start: 07-17-2023 Consultation [facility] Start: 07-17-2023 Consultation for treatment [facility] Start: 07-17-2023 Insertion of catheter into peripheral vein [facility] Start: 07-17-2023 Notification of physician [facility] Start: 07-17-2023 Providing care according to standard [facility] Start: 07-17-2023 [facility] Start: 07-17-2023 Application of eye patch [facility] Start: 07-17-2023 Admission procedure [facility] Start: 07-17-2023 Patient referral to dietitian [facility] Start: 05-24-2023 3 comp foot exam completed DIABETIC FOOT EXAM [facility] Start: 05-24-2023 Diabetic foot examination Diabetic Foot Exam [facility] Start: 05-11-2023 End: 07-11-2023 Basic metabolic 2000 panel - Serum or Plasma BASIC METABOLIC PNL Lab Routine Type 2 diabetes mellitus with stage 3b chronic kidney disease, without long-term current use of insulin ([facility]) Expected: 05/11/2023, Expires: 07/11/2023 [facility] Work Phone: Comment on above: Expected: 05/11/2023, Expires: 4 Start: 05-11-2023 End: 07-11-2023 CBC panel - Blood by Automated count CBC Lab Routine Type 2 diabetes mellitus with stage 3b chronic kidney disease, without long-term current use of insulin ([facility]) Expected: 05/11/2023, Expires: 07/11/2023 [facility] Work Phone: Comment on above: Expected: 05/11/2023, Expires: 4 Start: 05-11-2023 End: 07-11-2023 Hemoglobin A1c in Blood HGB A1C Lab Routine Type 2 diabetes mellitus with stage 3b chronic kidney disease, without long-term current use of insulin ([facility]) Expected: 05/11/2023, Expires: 07/11/2023 [facility] Work Phone: Comment on above: Expected: 05/11/2023, Expires: 4 Start: 05-06-2023 Hemoglobin A1c measurement HbA1C [facility] Start: 05-06-2023 Hemoglobin A1c/Hemoglobin.total in Blood HBA1C [facility] Start: 05-04-2023 ANNUAL PCP TEAM CHRONIC DISEASE VISIT ANNUAL PCP TEAM CHRONIC DISEASE VISIT [facility] Start: 05-04-2023 BP CONTROLLED (<130/80) BP CONTROLLED (<130/80) [facility] Start: 04-28-2023 Hepatitis B screening URINE ALBUMIN:CREATININE RATIO [facility] Start: 04-28-2023 SERUM CREATININE SERUM CREATININE [facility] Start: 04-23-2023 Advance Directive Discussion Advance Directive Discussion [facility] Start: 04-23-2023 Behavioral Health Screening Behavioral Health Screening [facility] Start: 04-20-2023 ANNUAL PCP TEAM CHRONIC DISEASE VISIT ANNUAL PCP TEAM CHRONIC DISEASE VISIT [facility] Start: 04-20-2023 BP CONTROLLED (<130/80) BP CONTROLLED (<130/80) [facility] Start: 01-17-2023 Glaucoma screening Dilated Retinal Exam [facility] Start: 01-17-2023 Hepatitis C antibody, confirmatory test DILATED RETINAL EXAM [facility] Start: 01-03-2023 Covid-19 Vaccine () Covid-19 Vaccine () [facility] Start: 01-03-2023 Covid-19 Vaccine ( season) Covid-19 Vaccine () [facility] Start: 12-22-2022 Influenza vaccination [facility] Start: 11-07-2022 3 comp foot exam completed DIABETIC FOOT EXAM [facility] [facility] Start: 11-07-2022 Adult depression screening assessment DEPRESSION SCREENING [facility] Start: 11-07-2022 ANNUAL PCP TEAM CHRONIC DISEASE VISIT ANNUAL PCP TEAM CHRONIC DISEASE VISIT [facility] Start: 11-01-2022 Complete blood count Hemoglobin/Hematocrit [facility] Start: 11-01-2022 End: 01-01-2023 Comprehensive metabolic 2000 panel - Serum or Plasma COMP METABOLIC PANEL Lab Routine Type 2 diabetes mellitus with stage 3b chronic kidney disease, without long-term current use of insulin (HCC) Expected: 11/01/2022, Expires: 01/01/2023 [facility] Work Phone: Comment on above: Expected: 11/01/2022, Expires: Start: 11-01-2022 End: 01-01-2023 Hemoglobin A1c in Blood HGB A1C Lab Routine Type 2 diabetes mellitus with stage 3b chronic kidney disease, without long-term current use of insulin (HCC) Expected: 11/01/2022, Expires: 01/01/2023 [facility] Work Phone: Comment on above: Expected: 11/01/2022, Expires: 3 Start: 11-01-2022 HEMOGLOBIN/HEMATOCRIT HEMOGLOBIN/HEMATOCRIT [facility] Start: 11-01-2022 SERUM CREATININE SERUM CREATININE [facility] Start: 10-26-2022 Hemoglobin A1c/Hemoglobin.total in Blood HBA1C [facility] Start: 08-10-2022 Hepatitis B surface antibody level LDL CHOLESTEROL [facility] Start: 08-04-2022 HEMOGLOBIN/HEMATOCRIT HEMOGLOBIN/HEMATOCRIT [facility] Start: 08-04-2022 SERUM CREATININE SERUM CREATININE [facility] Start: 05-10-2022 End: 07-10-2022 ALBUMIN/CREAT RATIO RND UR ALBUMIN/CREAT RATIO RND UR Lab Routine Type 2 diabetes mellitus with stage 3b chronic kidney disease, without long-term current use of insulin (HCC) Expected: 05/10/2022, Expires: 07/10/2022 [facility] Work Phone: Comment on above: Expected: 05/10/2022, Expires: 3 Start: 05-10-2022 End: 07-10-2022 Basic metabolic 2000 panel - Serum or Plasma BASIC METABOLIC PNL Lab Routine Type 2 diabetes mellitus with stage 3b chronic kidney disease, without long-term current use of insulin (HCC) Expected: 05/10/2022, Expires: 07/10/2022 [facility] Work Phone: Comment on above: Expected: 05/10/2022, Expires: 3 Start: 05-10-2022 End: 07-10-2022 Hemoglobin A1c in Blood HGB A1C Lab Routine Type 2 diabetes mellitus with stage 3b chronic kidney disease, without long-term current use of insulin (HCC) Expected: 05/10/2022, Expires: 07/10/2022 [facility] Work Phone: Comment on above: Expected: 05/10/2022, Expires: 3 Start: 05-04-2022 Hemoglobin A1c/Hemoglobin.total in Blood HBA1C [facility] Start: 04-28-2022 ANNUAL PCP TEAM CHRONIC DISEASE VISIT ANNUAL PCP TEAM CHRONIC DISEASE VISIT [facility] Start: 04-28-2022 BP CONTROLLED (<130/80) BP CONTROLLED (<130/80) [facility] Start: 04-23-2022 ADVANCE DIRECTIVE DISCUSSION ADVANCE DIRECTIVE DISCUSSION [facility] Start: 04-23-2022 DEPRESSION ASSESSMENT DEPRESSION ASSESSMENT [facility] Start: 02-03-2022 Hemoglobin A1c/Hemoglobin.total in Blood HBA1C [facility] Start: 01-27-2022 Hepatitis B screening URINE ALBUMIN:CREATININE RATIO [facility] Start: 01-27-2022 Hepatitis B surface antibody level LDL CHOLESTEROL [facility] Start: 01-27-2022 SERUM CREATININE SERUM CREATININE [facility] Start: 12-22-2021 Influenza vaccination INFLUENZA (#1) [facility] Start: 10-05-2021 Hepatitis C antibody, confirmatory test DILATED RETINAL EXAM [facility] Start: 07-28-2021 Hemoglobin A1c/Hemoglobin.total in Blood HBA1C [facility] Start: 07-26-2021 End: 09-25-2021 CBC panel - Blood by Automated count CBC Lab Routine Type 2 diabetes mellitus with stage 3 chronic kidney disease, without long-term current use of insulin (HCC) Expected: 07/26/2021, Expires: 09/25/2021 [facility] Work Phone: Comment on above: Expected: 07/26/2021, Expires: 2 Start: 07-26-2021 End: 09-25-2021 SCHEDULE LAB TESTING SCHEDULE LAB TESTING Lab Routine Expected: 07/26/2021, Expires: 09/25/2021 [facility] Work Phone: Comment on above: Expected: 07/26/2021, Expires: 2 Start: 07-19-2021 3 comp foot exam completed DIABETIC FOOT EXAM [facility] Start: 07-19-2021 Adult depression screening assessment DEPRESSION SCREENING [facility] Start: 07-14-2021 HEMOGLOBIN/HEMATOCRIT HEMOGLOBIN/HEMATOCRIT [facility] Start: 06-23-2021 COVID-19 VACCINE (4 - Booster for Moderna series) COVID-19 VACCINE (4 - Booster for Moderna series) [facility] Start: 04-23-2021 ADVANCE DIRECTIVE DISCUSSION ADVANCE DIRECTIVE DISCUSSION [facility] Start: 04-23-2021 DEPRESSION ASSESSMENT DEPRESSION ASSESSMENT [facility] Start: 04-20-2021 COVID-19 VACCINE (4 - Booster for Moderna series) COVID-19 VACCINE (4 - Booster for Moderna series) [facility] Start: 2020 RSV Vaccine (1 - 1-dose 75+ series) RSV Vaccine (1 - 1-dose 75+ series) [facility] Start: 05-29-2017 End: 05-29-2017 Appointment Appointment [facility] Work Phone: Start: 11-27-2016 End: 11-27-2016 Appointment Appointment [facility] Work Phone: Start: 11-27-2016 End: 05-23-2017 *Hepatic Function Panel *Hepatic Function Panel [facility] [facility] Work Phone: Start: 11-27-2016 End: 11-27-2016 Follow Up Appt 6 months Follow Up Appt 6 months [employer] Work Phone: Start: 11-27-2016 End: 05-23-2017 Lipid panel [AGGREGATE] *Lipid Profile CC PCP [facility] Work Phone: Start: 11-27-2016 End: 11-27-2016 MMM MMM [facility] Work Phone: Start: 10-24-2016 End: 11-24-2016 *Hepatic Function Panel *Hepatic Function Panel [facility] Work Phone: Start: 10-24-2016 End: 11-24-2016 Lipid panel [AGGREGATE] *Lipid Profile CC PCP [facility] Work Phone: Start: 06-01-2016 End: 06-01-2016 Follow Up Appt Other Follow Up Appt Other [facility] Work Phone: Start: 04-28-2016 End: 04-26-2016 *Hepatic Function Panel *Hepatic Function Panel [employer] Work Phone: Start: 04-28-2016 End: 04-26-2016 Lipid panel [AGGREGATE] *Lipid Profile CC PCP [facility] Work Phone: Start: 11-29-2015 End: 11-30-2015 *BMP *BMP [facility] [employer] Work Phone: Start: 11-29-2015 End: 11-30-2015 CBC W Auto Differential panel - Blood *CBC without Diff [facility] [employer] Work Phone: Start: 11-29-2015 End: 05-25-2016 Follow Up Appt 6 months Follow Up Appt 6 months [facility] Work Phone: Start: 11-29-2015 End: 05-25-2016 MMM MMM [facility] [employer] Work Phone: Start: 11-29-2015 End: 11-30-2015 Thyroid stimulating hormone (TSH) *TSH [facility] [employer] Work Phone: Start: 11-29-2015 End: 11-30-2015 Thyroxine (T4) *T4 (Total) [facility] [employer] Work Phone: Start: 10-06-2015 End: 10-27-2015 *Hepatic Function Panel *Hepatic Function Panel [facility] [employer] Work Phone: Start: 10-06-2015 End: 10-27-2015 Lipid panel [AGGREGATE] *Lipid Profile CC PCP [facility] Work Phone: Start: 06-01-2015 End: 06-01-2015 Electrocardiogram, complete EKG (In office) [facility] Work Phone: Start: 06-01-2015 End: 06-01-2015 Follow Up Appt 6 months Follow Up Appt 6 months [facility] Work Phone: Start: 06-01-2015 End: 06-01-2015 PFM PFM [facility] [employer] Work Phone: Start: 04-09-2015 End: 04-06-2015 *Hepatic Function Panel *Hepatic Function Panel [facility] Work Phone: Start: 04-09-2015 End: 04-06-2015 Lipid panel [AGGREGATE] *Lipid Profile CC PCP [facility] Work Phone: Start: 11-30-2014 End: 11-30-2014 Follow Up Appt 6 months Follow Up Appt 6 months [facility] Work Phone: Start: 11-30-2014 End: 11-30-2014 MMM MMM [facility] Work Phone: Start: 09-28-2014 End: 10-08-2014 *Hepatic Function Panel *Hepatic Function Panel [facility] Work Phone: Start: 09-28-2014 End: 10-08-2014 Lipid panel [AGGREGATE] *Lipid Profile CC PCP [facility] Work Phone: Start: 05-07-2014 End: 05-08-2014 *UA - Urinalysis w/o Micro *UA - Urinalysis w/o Micro [facility] Work Phone: Start: 05-06-2014 End: 05-08-2014 *BMP *BMP [facility] Work Phone: Start: 05-06-2014 End: 05-08-2014 aPTT *PTT-Partial Thromboplastin Time [facility] Work Phone: Start: 05-06-2014 End: 05-08-2014 aPTT Coag time (PPP) *PTT-Partial Thromboplastin Time [facility] Work Phone: Start: 05-06-2014 End: 05-08-2014 CBC W Auto Differential panel - Blood *CBC without Diff [facility] Work Phone: Start: 05-06-2014 End: 05-15-2014 Chest x-ray X-Ray, Chest, PA & Lateral [facility] Work Phone: Start: 05-06-2014 End: 05-08-2014 Coagulation factor induced.INR assay in platelet poor plasma *PT/INR [facility] Work Phone: Start: 05-06-2014 End: 05-07-2014 Left Heart Cath W/Grafts Left Heart Cath W/G[facility] Work Phone: Start: 04-20-2014 End: 05-07-2014 *BMP *BMP [facility] Work Phone: Start: 04-20-2014 End: 05-07-2014 *CBC with Differential *CBC with Differential [facility] Work Phone: Start: 04-20-2014 End: 04-20-2014 Echocardiography Echocardiogram (complete) [facility] Work Phone: Start: 04-20-2014 End: 04-20-2014 Electrocardiogram, complete EKG (In office) [facility] Work Phone: Start: 04-20-2014 End: 04-20-2014 Follow Up Appt 6 months Follow Up Appt 6 months [employer] Work Phone: Start: 04-20-2014 End: 04-20-2014 Nuclear stress test -exercise Nuclear stress test -exercise [facility] Work Phone: Start: 04-20-2014 End: 04-20-2014 PFM PFM [facility] Work Phone: Start: 04-20-2014 End: 05-07-2014 Thyroid stimulating hormone (TSH) *TSH [facility] Work Phone: Start: 04-20-2014 End: 05-07-2014 Thyroxine (T4) *T4 (Total) [facility] Work Phone: Start: 02-21-2014 End: 03-26-2014 *Hepatic Function Panel *Hepatic Function Panel [employer] Work Phone: Start: 02-21-2014 End: 03-26-2014 Lipid panel [AGGREGATE] *Lipid Profile CC PCP [facility] Work Phone: Start: 09-29-2013 End: 09-29-2013 Follow Up Appt 6 months Follow Up Appt 6 months [employer] Work Phone: Start: 09-29-2013 End: 09-29-2013 Follow Up BP Check Follow Up BP Check [facility] Work Phone: Start: 09-29-2013 End: 09-29-2013 PFM PFM [facility] Work Phone: Start: 08-21-2013 End: 09-22-2013 *Hepatic Function Panel *Hepatic Function Panel [facility] Work Phone: Start: 08-21-2013 End: 09-22-2013 Lipid panel [AGGREGATE] *Lipid Profile CC PCP [facility] Work Phone: Start: 07-22-2013 End: 02-26-2013 *Hepatic Function Panel *Hepatic Function Panel [facility] Work Phone: Start: 07-22-2013 End: 02-26-2013 Lipid panel [AGGREGATE] *Lipid Profile CC PCP [facility] Work Phone: Start: 03-06-2013 End: 03-06-2013 Follow Up Appt 6 months Follow Up Appt 6 months [facility] Work Phone: Start: 03-06-2013 End: 03-06-2013 MMM MMM [facility] Work Phone: Start: 01-21-2013 End: 02-14-2013 *Hepatic Function Panel *Hepatic Function Panel [facility] Work Phone: Start: 01-21-2013 End: 02-14-2013 Lipid panel [AGGREGATE] *Lipid Profile [facility] Work Phone: Start: 11-28-2012 End: 11-28-2012 Electrocardiogram, complete EKG (In office) [facility] Work Phone: Start: 11-28-2012 End: 11-28-2012 Follow Up Appt Other Follow Up Appt Other [facility] Work Phone: Start: 11-28-2012 End: 11-28-2012 PFM PFM [facility] Work Phone: Start: 08-21-2012 End: 08-21-2012 Follow Up Appt 6 months Follow Up Appt 6 months [facility] Work Phone: Start: 08-21-2012 End: 08-21-2012 PFM PFM [facility] Work Phone: Start: 02-19-2012 End: 08-21-2012 *Hepatic Function Panel *Hepatic Function Panel [facility] [employer] Work Phone: Start: 02-19-2012 End: 02-19-2012 Follow Up Appt 6 months Follow Up Appt 6 months [facility] Work Phone: Start: 02-19-2012 End: 08-21-2012 Lipid panel [AGGREGATE] *Lipid Profile [facility] Work Phone: Start: 02-16-2012 End: 08-21-2012 *Hepatic Function Panel *Hepatic Function Panel [facility] [employer] Work Phone: Start: 02-16-2012 End: 08-21-2012 Lipid panel [AGGREGATE] *Lipid Profile [facility] Work Phone: Start: 08-14-2011 End: 08-15-2011 *Hepatic Function Panel *Hepatic Function Panel [facility] [employer] Work Phone: Start: 08-14-2011 End: 08-14-2011 Electrocardiogram, complete EKG (In office) [facility] [employer] Work Phone: Start: 08-14-2011 End: 08-14-2011 Follow Up Appt 6 months Follow Up Appt 6 months [facility] [employer] Work Phone: Start: 08-14-2011 End: 08-15-2011 Lipid panel [AGGREGATE] *Lipid Profile [facility] [employer] Work Phone: Start: 2005 Hepatitis B Vaccine (1 of 3 - Risk 3-dose series) Hepatitis B Vaccine (1 of 3 - Risk 3-dose series) [facility] Start: 2005 RSV Vaccine (1 - 1-dose 60+ series) RSV Vaccine (1 - 1-dose 60+ series) [facility] Start: 12-29-1995 SHINGRIX VACCINE (1 of 2) SHINGRIX VACCINE (1 of 2) [facility] Start: 1990 COLOGUARD (FIT-DNA) COLOGUARD (FIT-DNA) [facility] Start: [address] COLONOGRAPHY [facility] Start: 1990 FECAL OCCULT BLOOD FECAL OCCULT BLOOD [facility] Start: 1990 SIGMOIDOSCOPY SIGMOIDOSCOPY [facility] Start: 12-29-1963 BP CONTROLLED (<130/80) BP CONTROLLED (<130/80) [facility] inic Patient Education [facility] Work Phone: Patient referral [facility] Work Phone: Carotid arteries [facility] End: 09-25-2025 XR Foot - left AP and Lateral and oblique XR FOOT GENERAL 3V AP/LAT/OBL LEFT Radiology Routine Left foot pain 1 Occurrences starting 08/26/2024 until 09/25/2025 [facility] Work Phone: Comment on above: 1 Occurrences starting 08/26/2024 until 09/25/2025 XR Foot - left AP an d Lateral and oblique XR FOOT GENERAL 3V AP/LAT/OBL LEFT Radiology Routine Left foot pain 08/26/2024 12:12 PM EDT [facility] End: 10-16-2024 XR Toes - right 3 Views XR TOE AP/LAT/OBL RIGHT Radiology STAT Contusion of right great toe with damage to nail, initial encounter 1 Occurrences starting 09/17/2023 until 10/16/2024 [facility] Work Phone: Comment on above: 1 Occurrences starting 09/17/2023 until 10/16/2024 [facility] Immunizations Immunization Date Immunization Notes Care Provider Fa farihaty 05-12-2024 COVID-19 vaccine, ag e 12+ yr ([facility]) Prince Celeste MD Work Phone: [facility] 04-21-2024 influenza, high dose seasonal, preservative-free Prince Celeste MD Work Phone: [facility] 11-12-2023 COVID-19 vaccine, ag e 12+ yr, season ([employer]) Prince Celeste MD Work Phone: [facility] 02-16-2023 Seasonal, quadrivale nt, recombinant, injectable influenza vaccine, preservative free Pricne Celeste MD Work Phone: [facility] 02-16-2023 influenza virus vacc ine, unspecified formulation Prince Celeste MD Work Phone: [facility] 11-08-2022 COVID-19 vaccine, ag e 12+ yr, bivalent ([employer]) Prince Celeste MD Work Phone: [facility] Work Phone: 02-21-2022 influenza, injectabl e, quadrivalent, contains preservative Prince Celeste MD Work Phone: [facility] 02-21-2022 influenza virus vacc ine, unspecified formulation Oliver Gill APRN.CNP Work Phone: [facility] 02-10-2022 influenza, high dose seasonal, preservative-free Prince Celeste MD Work Phone: [facility] 02-23-2021 COVID-19 vaccine, fu ll dose (MODERNA) Prince Celeste MD Work Phone: [facility] 02-03-2021 influenza, high-dose , quadrivalent vaccine (FLUZONE HIGH DOSE QUADRIVALENT) Prince Celeste MD Work Phone: [facility] 02-02-2021 influenza, injectabl e, quadrivalent, contains preservative Prince Celeste MD Work Phone: [facility] 06-18-2020 COVID-19 vaccine, fu ll dose (MODERNA) Prince Celeste MD Work Phone: [facility] Work Phone: 05-21-2020 COVID-19 vaccine, fu ll dose (MODERNA) Prince Celeste MD Work Phone: [facility] Work Phone: 01-21-2020 influenza, high-dose , quadrivalent vaccine (FLUZONE HIGH DOSE QUADRIVALENT) Prince Celeste MD Work Phone: [facility] 03-08-2019 influenza, high dose seasonal, preservative-free Prince Celeste MD Work Phone: [facility] Work Phone: 01-16-2018 influenza, high dose seasonal, preservative-free Prince Celeste MD Work Phone: [facility] Work Phone: 03-08-2016 influenza, seasonal, injectable Prince Celeste MD Work Phone: [facility] 03-16-2015 pneumococcal conjuga te vaccine, 13 valent Prince Celeste MD Work Phone: [facility] 01-21-2015 influenza, high dose seasonal, preservative-free Prince Celeste MD Work Phone: [facility] 06-12-2014 tetanus toxoid, redu sarah diphtheria toxoid, and acellular pertussis vaccine, adsorbed Prince Celeste MD Work Phone: [facility] Work Phone: 03-13-2014 influenza, seasonal, injectable Prince Celeste MD Work Phone: [facility] 03-13-2014 pneumococcal polysaccharide vaccine, 23 valent Prince Celeste MD Work Phone: [facility] 03-06-2013 influenza virus vacc ine, unspecified formulation Prince Celeste MD Work Phone: [facility] 03-06-2012 influenza virus vacc ine, unspecified formulation Prince Celeste MD Work Phone: [facility] Work Phone: 04-05-2011 influenza virus vacc ine, unspecified formulation Prince Celeste MD Work Phone: [facility] Work Phone: 05-26-2008 pneumococcal polysaccharide vaccine, 23 valent Prince Celeste MD Work Phone: [facility] 04-12-2005 influenza virus vacc ine, unspecified formulation Prince Celeste MD Work Phone: [facility] Work Phone: 03-26-2002 tetanus and diphther ia toxoids, adsorbed, preservative free, for adult use (2 Lf of tetanus toxoid and 2 Lf of diphtheria toxoid) Prince Celeste MD Work Phone: [facility] Work Phone: Payers Date Payer Category Payer Self-pay [id number] 2015 Medicare (Managed Care) [employer] P[employer] Member Subscriber Plan / Payer (Effective 2015-Present) Name: Seda Menchaca Relation to Subscriber: Self Name: Seda Menchaca Payer ID: [id number] (NAIC) Group ID: [id number] Type: PPO Address: [address] [id number] 2015 Unknown [employer] [id number] 2015-Present [phone] [address] [place] [address] PPO [id number] 2015 Unknown [id number] 2014 Medicare [id number] Unknown [id number] Unknown [id number] Unknown [id number] Unknown [id number] Unknown [id number] Unknown [id number] Unknown [id number] Unknown [id number] Unknown [id number] Unknown [id number] Unknown [id number] Social History Date Type Detail Facility Start: 09-04-2019 End: 09-02-2023 Tobacco smoking status [facility] Unknown if ever smoked [facility] Start: 1945 Sex Assigned At Male [facility] Start: 06-19-2017 End: 05-12-2024 Tobacco smoking status PRIS Ex-smoker [facility] Start: 04-23-1959 End: 04-23-1979 History of tobacco use Current smoker [facility] Start: 04-23-1959 End: 04-23-1979 History of tobacco use Cigarette Smoker [facility] Start: 07-25-2021 End: 08-26-2024 Alcohol intake Current non-drinker of alcohol (finding) [facility] Start: 1945 Sex Assigned At Not on file [facility] Start: 06-14-2020 End: 11-07-2021 Exposure to SARS-CoV-2 (event) Not sure [facility] Work Phone: Start: 11-07-2021 History SDOH Physica l Activity DPW 2 [facility] Start: 06-19-2017 End: 11-08-2022 Cigarettes smoked current (pack per day) - Reported 1 [facility] Work Phone: Start: 06-19-2017 End: 05-12-2024 Tobacco use and exposure Smokeless tobacco non-user [facility] Work Phone: Start: 11-08-2022 End: 11-12-2023 Tobacco use panel [facility] Work Phone: Adult Depression Screening Assessment 2 [facility] Work Phone: How often to you hav e a drink containing alcohol? Never [facility] Start: 07-29-2024 Sex Male (finding) [facility] Medical Equipment Procedure Code Equipment Code Equipment Origin al Text Equipment Identifier Dates Test blood sugar(s) 1 times daily. Dx:E11.9 Insulin: no [id number], [id number], [id number], [id number] Start: 04-14-2020 End: 07-08-2024 Comment on above: Test blood sugar(s) 1 times daily. Dx:E11.9 Insulin: no Goals Date Patient Goal Desired Activity /State Functional Status Date Assessment Result Facility 07-18-2023 Functional status Up ad marjan [facility] Work Phone: 09-15-2014 Are you deaf, or do you have serious difficulty hearing No 09/15/2014 2:49 PM Shayy Padron RN No [facility] 09-15-2014 Are you blind, or do you have serious difficulty seeing, even when wearing glasses No 09/15/2014 2:49 PM Shayy Padron RN No [facility] 09-15-2014 Do you have serious difficulty walking or climbing stairs No 09/15/2014 2:49 PM Shayy Padron RN No [facility] 09-15-2014 Do you have difficul ty dressing or bathing No 09/15/2014 2:49 PM Shayy Padron RN No [facility] 09-15-2014 Because of a physica l, mental, or emotional condition, do you have difficulty doing errands alone such as visiting a physician's office or shopping No 09/15/2014 2:49 PM Shayy Padron RN No [facility] Mental Status Date Assessment Result Facility 09-02-2023 Cognitive function Level Of Cons ciousness Awake;Alert;Appropriate;Fol lows Commands [facility] Work Phone: 07-18-2023 Cognitive function Voice/Name [facility] Work Phone: 09-15-2014 Because of a physica l, mental, or emotional condition, do you have serious difficulty concentrating, remembering, or making decisions No 09/15/2014 2:49 PM EDT Shayy Ontiveros RN No [facility] Clinical Notes 06-21-2008 to 09-02-2024 Telephone Encounter - Harika Richardson LPN - 09/02/2024 12:49 PM EDTTelephone Encounter - Harika Richardson LPN - 09/02/2024 12:49 PM Devendra Orellana RT(R) - 08/26/2024 12:00 PM EDT Note Date & Type Note Facility 09-02-2024 Telephone encounter Note Patient returned call and went over results, notes from Juanis Hawthorne NP with understanding. [facility] 09-02-2024 Miscellaneous Notes Patient returned call and went over results, notes from Juanis Hawthorne NP with understanding. ----- Message from Juanis Hawthorne APRN.TEXTILE PIN WORKER sent at 09/02/2024 9:04 AM EDT ----- Please let the patient know the x-ray of his foot was negative for stress fracture. It did show small bone spurs which could explain the pain he is experiencing. If symptoms don't improve recommend scheduling follow-up with Dr. Kitty Hawthorne APRN.TEXTILE PIN WORKER documented in this encounter [facility] 09-02-2024 Telephone encounter Note ----- Message from Juanis Hawthorne APRN.TEXTILE PIN WORKER sent at 09/02/2024 9:04 AM EDT ----- Please let the patient know the x-ray of his foot was negative for stress fracture. It did show small bone spurs which could explain the pain he is experiencing. If symptoms don't improve recommend scheduling follow-up with Dr. Kitty Hawthorne APRN.TEXTILE PIN WORKER [facility] 08-26-2024 History of Present illness Narrative Radiology Service Progress Note PATIENT NAME: Seda Menchaca DATE OF SERVICE: August 26, 2024 TIME: 12:11 PM PATIENT IDENTITY VERIFICATION COMPLETED USING TWO (2) IDENTIFIERS: Name and Date of confirmed by patient verbally. FALL SCREENING: Has the patient had 2 falls in the last year or 1 fall with injury or currently using an Ambulatory Assistive Device (Walker, Cane, Wheelchair, Crutches, etc.)? No PATIENT GENDER DATA: Assigned male at PATIENT RELEVANT IMPLANT DATA REVIEWED: Yes PATIENT PRESENTS WITH AN IMPLANTABLE OR ATTACHED PHYSICAL BIOCHEMIST: No RADIOLOGY DEPARTMENT: General X-ray: Exam(s) Completed: Lower Extremity X-Ray(s): Foot, Left PERIPHERAL IV DATA: Not applicable SIGNED BY: RT Sin(Douglas) August 26, 2024 12:11 PM documented in this encounter [facility] 08-26-2024 Note HNO ID: [id number] Author: DEVENDRA KELLY RT(Douglas) Service: ? Author Type: Railroad Switchman Type: Progress Notes Filed: 08/26/2024 12:11 Note Text: Radiology Service Progress Note PATIENT NAME: Seda Menchaca DATE OF SERVICE: August 26, 2024 TIME: 12:11 PM PATIENT IDENTITY VERIFICATION COMPLETED USING TWO (2) IDENTIFIERS: Name and Date of confirmed by patient verbally. FALL SCREENING: Has the patient had 2 falls in the last year or 1 fall with injury or currently using an Ambulatory Assistive Device (Walker, Cane, Wheelchair, Crutches, etc.)? No PATIENT GENDER DATA: Assigned male at PATIENT RELEVANT IMPLANT DATA REVIEWED: Yes PATIENT PRESENTS WITH AN IMPLANTABLE OR ATTACHED PHYSICAL BIOCHEMIST: No RADIOLOGY DEPARTMENT: General X-ray: Exam(s) Completed: Lower Extremity X-Ray(s): Foot, Left PERIPHERAL IV DATA: Not applicable SIGNED BY: RT Sin(R) August 26, 2024 12:[address] [facility] 08-26-2024 Note HNO ID: [id number] Author: JUANIS HAWTHORNE APRN.TEXTILE PIN WORKER Service: ? Author Type: Nurse Practitioner Type: Progress Notes Filed: 08/26/2024 12:00 Note Text: CC: Patient presents with: Pain: Left foot x 4 days HPI Recording using [employer] software for draft documentation of the visit was discussed with the patient/authorized personnel representative; all questions welcomed and answered. Patient/authorized personnel representative agreed to proceed Seda is a 78-year-old male with a history of diabetes mellitus and neuropathy, presenting with acute onset of left foot pain. Seda reports a sudden onset of sharp pain in the left foot, localized to the arch and extending to the heel, beginning last . The pain is exacerbated by weight-bearing activities such as standing and is most severe upon waking in the morning, gradually improving throughout the day. The pain is alleviated when sitting. He denies any recent trauma or injury to the foot and has not noticed any swelling or ecchymosis. He has a history of intermittent foot pain, with the last episode occurring 2-3 months ago, which resolved spontaneously. He has not previously discussed this issue with his budget manager, Dr. Tang. Seda also reports chronic numbness in the foot, which he attributes to diabetic neuropathy. 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 He is using custom orthotic inserts provided by his budget manager. 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 Singh. CORONARY ATHEROSCLER UNSPEC VESSEL 07/08/2008 Dr. Markham, [facility]. 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 Terrazas, [facility]. Type II or unspecified type diabetes mellitus without mention of complication, not stated as uncontrolled 12/06/2004 Unspecified essential hypertension 12/06/2004 PAST SURGICAL HISTORY Procedure Laterality Date COLONOSCOPY FLX DX W/COLLJ SPEC WHEN PFRMD 03/25/2004 Colonoscopy COLONOSCOPY FLX DX W/COLLJ SPEC WHEN PFRMD 04/07/2016 normal 10 year follow up CORONARY ARTERY BYP W/VEIN AND ARTERY GRAFT 4 VEIN CABG, 5 vessel CYSTO W/REMOVAL OF TUMORS SMALL 04/21/2009 Excision bladder tumor CYSTOURETHROSCOPY Cystoscopy annually last 2016 DIABETES with stage 3 kidney disease ESOPHAGOGASTRODUODENOSCOPY TRANSORAL DIAGNOSTIC 03/25/2004 EGD LEFT HEART CATH 05/12/2014 Left ventriculogram, coronary arteriography, SVG angiography, SALLY arteriography LEFT HEART CATH,PERCUTANEOUS 06/2009 Cardiac cath, L heart PAST SURGICAL HISTORY OF 11/21/2005 excision lymph node right side neck PAST SURGICAL HISTORY OF 1967 Left forearm ORIF fracture. REVISE MEDIAN N/CARPAL TUNNEL SURG Right 06/09/2021 Right carpal tunnel release RPR 1ST INGUN HRNA AGE 5 YRS/> REDUCIBLE 2000 Hernia repair, inguinal RPR 1ST INGUN HRNA AGE 5 YRS/> REDUCIBLE 12/17/2012 Hernia repair, inguinal SKIN BIOPSY HX TONSILLECTOMY AND ADENOIDECTOMY ALLERGIES Keflex [Cephalexin], Ofloxacin, and Penicillins MEDICATIONS metFORMIN (GLUCOPHAGE) 1,000 mg tablet Take 1 tablet by mouth daily with breakfast. blood sugar diagnostic (IkonopediaTOUCH ULTRA TEST) test strip Test blood sugar(s) 1 times daily. Dx:E11.9 Insulin: no DULoxetine (CYMBALTA) 20 mg capsule Take 1 capsule by mouth once daily. tamsulosin (FLOMAX) 0.4 mg Take 0.4 mg by mouth once daily. glipiZIDE (GLUCOTROL XL) 2.5 mg 24 hr tablet Take 1 tablet by mouth once daily. gabapentin (NEURONTIN) 300 mg capsule Take 1 capsule by mouth daily at bedtime for 180 days. atorvastatin (LIPITOR) 20 mg tablet Take 20 mg by mouth once daily. [facility]. 3//25 - 40mg per patient's medication card traZODone (DESYREL) 100 mg tablet Take 1 tablet by mouth daily at bedtime. amLODIPine (NORVASC) 10 mg tablet Take 1 tablet by mouth once daily. [facility] metoprolol tartrate, short acting, (LOPRESSOR) 50 mg tablet Take 1 tablet by mouth twice daily. sildenafil (VIAGRA) 100 mg tablet Take 1 tablet by mouth once daily as needed (for ED.). [id number] 3.5 MG/ML-10,000 UNIT/ML-0.1% EYE DROPS olopatadin (more content not included)... [facility] 08-26-2024 History of Present illness Narrative CC: Patient presents with: Pain: Left foot x 4 days HPI Recording using [employer] software for draft documentation of the visit was discussed with the patient/authorized personnel representative; all questions welcomed and answered. Patient/authorized personnel representative agreed to proceed Seda is a 78-year-old male with a history of diabetes mellitus and neuropathy, presenting with acute onset of left foot pain. Seda reports a sudden onset of sharp pain in the left foot, localized to the arch and extending to the heel, beginning last . The pain is exacerbated by weight-bearing activities such as standing and is most severe upon waking in the morning, gradually improving throughout the day. The pain is alleviated when sitting. He denies any recent trauma or injury to the foot and has not noticed any swelling or ecchymosis. He has a history of intermittent foot pain, with the last episode occurring 2-3 months ago, which resolved spontaneously. He has not previously discussed this issue with his budget manager, Dr. Tang. Seda also reports chronic numbness in the foot, which he attributes to diabetic neuropathy. 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 He is using custom orthotic inserts provided by his budget manager. 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 Singh. CORONARY ATHEROSCLER UNSPEC VESSEL 07/08/2008 Dr. Markham, [facility]. 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 Terrazas, [facility]. Type II or unspecified type diabetes mellitus without mention of complication, not stated as uncontrolled 12/06/2004 Unspecified essential hypertension 12/06/2004 PAST SURGICAL HISTORY Procedure Laterality Date COLONOSCOPY FLX DX W/COLLJ SPEC WHEN PFRMD 03/25/2004 Colonoscopy COLONOSCOPY FLX DX W/COLLJ SPEC WHEN PFRMD 04/07/2016 normal 10 year follow up CORONARY ARTERY BYP W/VEIN & ARTERY GRAFT 4 VEIN CABG, 5 vessel CYSTO W/REMOVAL OF TUMORS SMALL 04/21/2009 Excision bladder tumor CYSTOURETHROSCOPY Cystoscopy annually last 2016 DIABETES with stage 3 kidney disease ESOPHAGOGASTRODUODENOSCOPY TRANSORAL DIAGNOSTIC 03/25/2004 EGD LEFT HEART CATH 05/12/2014 Left ventriculogram, coronary arteriography, SVG angiography, SALYL arteriography LEFT HEART CATH,PERCUTANEOUS 06/2009 Cardiac cath, L heart PAST SURGICAL HISTORY OF 11/21/2005 excision lymph node right side neck PAST SURGICAL HISTORY OF 1968 Left forearm ORIF fracture. REVISE MEDIAN N/CARPAL TUNNEL SURG Right 06/09/2021 Right carpal tunnel release RPR 1ST INGUN HRNA AGE 5 YRS/> REDUCIBLE 2000 Hernia repair, inguinal RPR 1ST INGUN HRNA AGE 5 YRS/> REDUCIBLE 12/17/2012 Hernia repair, inguinal SKIN BIOPSY HX TONSILLECTOMY & ADENOIDECTOMY <AGE 12 ALLERGIES Keflex [Cephalexin], Ofloxacin, and Penicillins MEDICATIONS metFORMIN (GLUCOPHAGE) 1,000 mg tablet Take 1 tablet by mouth daily with breakfast. blood sugar diagnostic ([employer] ULTRA TEST) test strip Test blood sugar(s) 1 times daily. Dx:E11.9 Insulin: no DULoxetine (CYMBALTA) 20 mg capsule Take 1 capsule by mouth once daily. tamsulosin (FLOMAX) 0.4 mg Take 0.4 mg by mouth once daily. glipiZIDE (GLUCOTROL XL) 2.5 mg 24 hr tablet Take 1 tablet by mouth once daily. gabapentin (NEURONTIN) 300 mg capsule Take 1 capsule by mouth daily at bedtime for 180 days. atorvastatin (LIPITOR) 20 mg tablet Take 20 mg by mouth once daily. [facility] 06/23/25 - 40mg per patient's medication card traZODone (DESYREL) 100 mg tablet Take 1 tablet by mouth daily at bedtime. amLODIPine (NORVASC) 10 mg tablet Take 1 tablet by mouth once daily. [facility] metoprolol tartrate, short acting, (LOPRESSOR) 50 mg tablet Take 1 tablet by mouth twice daily. sildenafil (VIAGRA) 100 mg tablet Take 1 tablet by mouth once daily as needed (for ED.). [id number] 3.5 MG/ML-10,000 UNIT/ML-0.1% EYE DROPS olopatadine (PATANOL) 0.1 % ophthalmic solution Use 1 Drop in both eyes two times a day as needed (allergies). fexofenadine (SOWMYA ALLERGY) 180 mg tablet Take 1 tablet by mouth once daily. (Patient taking differently: Take 180 mg by mouth once daily. Unsure the name but takes OTC allergy relief medications PRN) acetaminophen (TYLENOL) 500 mg tablet Take 500 mg by mouth every 8 hours as needed. diclofenac sodium (VOLTAREN) 1 % topical gel Apply 2 g to affected area three times daily as needed (wrist pain). (Patient not taking: Reported on 06/23/2024) Omeprazole Magnesium (PRILOSEC OTC) 20 mg tablet Take 1 tablet by mouth daily before breakfast. 1/2 hr before meal. nitroglycerin sublingual (NITROQUICK) 0.4 mg SL tablet Dissolve 0.4 mg under the tongue every 5 minutes as needed. THERAPEUTIC MULTIVITAMIN TAB Take one(1) tablet daily. FAMILY HISTORY Problem Relation Age of Onset Coronary Artery Disease Mother Diabetes Mother Heart Father Diabetes Father Diabetes Sister Cataract Sister Stroke Sister Blindness Sister Cancer Brother esophageal Coronary Artery Disease Brother Diabetes Brother Social History Tobacco Use Smoking status: Former Current packs/day: 0.00 Average packs/day: 1 pack/day for 20.0 years (20.0 ttl pk-yrs) Types: Cigarettes Start date: 04/23/1959 Quit date: 04/23/1979 Years since quittin.3 Smokeless tobacco: Never Vaping Use Vaping status: Never Used Substance Use Topics Alcohol use: No Drug use: No BP 116/74 Pulse 86 Resp 12 Wt 63.3 kg (139 lb 8.8 oz) SpO2 98% BMI 23.51 kg/m Physical Exam Vitals reviewed. Constitutional: Appearance: Normal appearance. Musculoskeletal: Left foot: Normal range of motion and normal capillary refill. Tenderness (localized, medial side of foot) present. No swelling or deformity. Normal pulse. Comments: Left foot- no skin discoloration. Normal skin temperature. Neurological: Mental Status: He is alert. Assessment/Plan 1. Left foot pain (M79.672) Acute onset of sharp pain localized to the arch of the left foot, exacerbated by weight-bearing and alleviated by rest. No visible swelling or bruising. No history of recent injury. Chronic numbness present, likely secondary to diabetes mellitus. Differential diagnoses include stress fracture, plantar fasciitis, and arthritis. - Ordered X-ray of the left foot to rule out stress fracture. - Discussed potential diagnosis of plantar fasciitis and explained the pathophysiology involving inflammation of the plantar fascia. - Recommended continued use of custom orthotics. - Advised continuation of gtbb-vmg-zfekpds analgesics as needed for pain management. - If X-ray is negative and symptoms persist, advised follow-up with budget manager Dr. Tang. I spent a total of 20 minutes on the date of the service which included preparing to see the patient, huxd-yc-trvj patient care, completing clinical documentation, performing a medically appropriate examination, counseling and educating the patient/family/caregiver, and ordering medications, tests, or procedures. Prescription instructions reviewed with patient as applicable. Potential red flag symptoms discussed with the patient. Reviewed appropriate action plan to take if red flag symptoms occur. Patient agreeable to treatment plan. Juanis Hawthorne APRN.JAYY documented in this encounter [facility] 08-26-2024 Instructions Juanis Hawthorne APRN.JAYY - 08/26/2024 11:56 AM EDT We discussed your left foot pain: - You reported sharp pain in the arch of your left foot that worsens when standing and is most severe in the morning. The pain improves slightly as the day progresses. You also noted some numbness underneath your foot, which is related to your diabetes. There is no swelling, bruising, or history of injury. - I performed an exam and identified a tender spot in the arch of your foot. Based on your symptoms, the pain may be due to plantar fasciitis (inflammation of the tissue along the bottom of the foot) or arthritis. However, we will start with an x-ray to rule out a stress fracture. - Please proceed to the main entrance to check in for your x-ray today. The x-ray will help us determine if there is a fracture. If the x-ray is negative and the pain persists, it may be related to inflammation or arthritis. - You are currently using inserts provided by your foot doctor. If the pain does not improve or becomes recurrent, I recommend following up with your foot doctor for further evaluation and management. - You may continue taking your ybnx-siu-rgtirtr pain medication as needed for relief. If the pain worsens or does not improve, please let us know. Next steps: - Complete the x-ray today as discussed. - If your foot pain does not improve or becomes persistent, please schedule a follow-up appointment with me or your foot doctor. documented in this encounter [facility] 08-25-2024 Telephone encounter Note Patient calls for left foot arch pain. Nurse triage completed. Protocol recommends see provider within 3 days. Appt scheduled. Care advice reviewed with verbalized understanding. Reason for Disposition [1] MODERATE pain (e.g., interferes with normal activities, limping) AND [2] present > 3 days Answer Assessment - Initial Assessment Questions 1. ONSET: 2-3 days ago 2. LOCATION: Left foot arch. 3. PAIN: - MODERATE (4-7): Interferes with normal activities (e.g., work or school) or awakens from sleep, limping. 4. WORK OR EXERCISE: No recent work or exercise that involved this part of the body. 5. CAUSE: Patient not certain. 6. OTHER SYMPTOMS: No leg pain, rash, fever, numbness Protocols used: Foot Saql-[id number] [facility] 08-25-2024 Miscellaneous Notes Patient calls for left foot arch pain. Nurse triage completed. Protocol recommends see provider within 3 days. Appt scheduled. Care advice reviewed with verbalized understanding. Reason for Disposition [1] MODERATE pain (e.g., interferes with normal activities, limping) AND [2] present > 3 days Answer Assessment - Initial Assessment Questions 1. ONSET: 2-3 days ago 2. LOCATION: Left foot arch. 3. PAIN: - MODERATE (4-7): Interferes with normal activities (e.g., work or school) or awakens from sleep, limping. 4. WORK OR EXERCISE: No recent work or exercise that involved this part of the body. 5. CAUSE: Patient not certain. 6. OTHER SYMPTOMS: No leg pain, rash, fever, numbness Protocols used: Foot [id number] documented in this encounter [facility] 08-21-2024 Telephone encounter Note Patient has been identified by name and date of : Yes Patient phones for refill(s): Requested Prescriptions Pending Prescriptions Disp Refills metFORMIN (GLUCOPHAGE) 1,000 mg tablet 90 tablet 3 Sig: Take 1 tablet by mouth daily with breakfast. Date of last office visit in primary care: 05/12/2024 Date of next office visit in primary care: 11/10/2024 Please advise. Thank you. Gisselle Craven LPN. [facility] 08-21-2024 Miscellaneous Notes Patient has been identified by name and date of : Yes Patient phones for refill(s): Requested Prescriptions Pending Prescriptions Disp Refills metFORMIN (GLUCOPHAGE) 1,000 mg tablet 90 tablet 3 Sig: Take 1 tablet by mouth daily with breakfast. Date of last office visit in primary care: 05/12/2024 Date of next office visit in primary care: 11/10/2024 Please advise. Thank you. Gisselle Craven LPN. Prescription Refill Information The patient has been identified by name and date of : Yes Caregiver verified no other encounters exist for this prescription request: Yes Caregiver confirmed with patient/requestor that no other refills are due, in the near future, with this provider at this time: Yes The last office visit in the department: 05/02/2024 Does the patient have a future office visit with this provider/department: Yes Requested Prescriptions Pending Prescriptions Disp Refills metFORMIN (GLUCOPHAGE) 1,000 mg tablet 90 tablet 3 Sig: Take 1 tablet by mouth daily with breakfast. Patient needs by tomorrow. Due to will be out this weekend. Mirian Short August 21, 2024 3:25 PM documented in this encounter [facility] 08-21-2024 Telephone encounter Note Prescription Refill Information The patient has been identified by name and date of : Yes Caregiver verified no other encounters exist for this prescription request: Yes Caregiver confirmed with patient/requestor that no other refills are due, in the near future, with this provider at this time: Yes The last office visit in the department: 05/02/2024 Does the patient have a future office visit with this provider/department: Yes Requested Prescriptions Pending Prescriptions Disp Refills metFORMIN (GLUCOPHAGE) 1,000 mg tablet 90 tablet 3 Sig: Take 1 tablet by mouth daily with breakfast. Patient needs by tomorrow. Due to will be out this . Mirian Short August 21, 2024 3:25 PM [facility] 07-30-2024 Telephone encounter Note Patient returned call and given provider's message below and patient verbalized understanding. Radha Stoddard RN [facility] 07-30-2024 Miscellaneous Notes Patient returned call and given provider's message below and patient verbalized understanding. Radha Stoddard RN Called and left a voicemail for the Patient to call back and ask for a nurse to receive the providers message. Philomena Tatum RN Massage left foot 5 to 10 minutes TID by rolling on tennis ball. Foot and heel stretches on getting up every AM. Appointment if needed. Pt called in and reports the arch of his L foot has been hurting him x1 week now. He states he has been taking Tylenol for it with minimal relief. Pt reports the pain is a 7/10 aching and it comes and goes with it being worse in the morning, and it get better throughout the day and lets up as he uses it. Pt states he had the same thing happen about 2 months ago with the same foot for a bout 2-3 weeks and he used ice and it helped some, but it went away on its own. I tried to make an appointment for the Pt, but he wanted to know if the provider had any recommendations on what he could do for the pain. Please call and advise. documented in this encounter [facility] 07-30-2024 Telephone encounter Note Called and left a voicemail for the Patient to call back and ask for a nurse to receive the providers message. Philomena Tatum RN [facility] 07-30-2024 Telephone encounter Note Massage left foot 5 to 10 minutes TID by rolling on tennis ball. Foot and heel stretches on getting up every AM. Appointment if needed. [facility] 07-29-2024 Telephone encounter Note Pt called in and reports the arch of his L foot has been hurting him x1 week now. He states he has been taking Tylenol for it with minimal relief. Pt reports the pain is a 7/10 aching and it comes and goes with it being worse in the morning, and it get better throughout the day and lets up as he uses it. Pt states he had the same thing happen about 2 months ago with the same foot for a bout 2-3 weeks and he used ice and it helped some, but it went away on its own. I tried to make an appointment for the Pt, but he wanted to know if the provider had any recommendations on what he could do for the pain. Please call and advise. [facility] 07-08-2024 Telephone encounter Note Patient has been identified by name and date of : Yes, Provider Dr. Celeste Date 07/08/24 Time 3:40pm Patient phones for refill(s): Requested Prescriptions Pending Prescriptions Disp Refills blood sugar diagnostic (ONETOUCH ULTRA TEST) test strip 100 Strip 3 Sig: Test blood sugar(s) 1 times daily. Dx:E11.9 Insulin: no Date of last office visit in primary care: Visit date not found Date of next office visit in primary care: Visit date not found Please advise. Thank you. Spring Boo. [facility] 07-08-2024 Miscellaneous Notes Patient has been identified by name and date of : Yes, Provider Dr. Celeste Date 07/08/24 Time 3:40pm Patient phones for refill(s): Requested Prescriptions Pending Prescriptions Disp Refills blood sugar diagnostic (ONETOUCH ULTRA TEST) test strip 100 Strip 3 Sig: Test blood sugar(s) 1 times daily. Dx:E11.9 Insulin: no Date of last office visit in primary care: Visit date not found Date of next office visit in primary care: Visit date not found Please advise. Thank you. Spring Boo. 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 2024 2:19pm Essential hypertension chronic [facility] 2024 2:19pm Mitral regurgitation chronic [facility] 2024 2:19pm Pure hypercholesterolemia chronic July 07, 2024 2:19pm [facility] Work Phone: [phone]) 625-954303-03-2025 NoteHNO ID: [id number] Author: MIRNA PAREKH LPN Service: ? Author Type: LICENSED NURSE Type: Progress Notes Filed: 06/23/2024 21:16 Note Text: Per Danny Daveyuel was provided with powerstep gel inserts, size 9, and instructed/educated in its application, wear, and care. All questions were answered, and patient was able to demonstrate competence with the necessary skills to utilize the above equipment. [facility] History of Present illness Narrative* Mirna Parekh LPN - 06/23/2024 1:52 PM EST Per Seda Davey was provided with powerstep gel inserts, size 9, and instructed/educated in its application, wear, and care. All questions were answered, and patient was able to demonstrate competence with the necessary skills to utilize the above equipment. Mirna Parekh LPN * Emilie Tang - 06/23/2024 1:40 PM EST Subjective: This 78 year old male presents to clinic for diabetic foot check. Patient has the following complaints: discolored hallux toenail States that over the past 6 months, he may have dropped something on the toe while working in the garage. The nails are discolored but appear to be improving. Denies any pain. Patient admits to being diabetic for 15-20 years now. Patient +B/T/N in feet at this time. Patient -pain in legs when walking. No other pedal complaints at this time. No change in medications or medical history since last visit. PAIN EVALUATION No data found in the last 1 encounters. 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 Singh. CORONARY ATHEROSCLER UNSPEC VESSEL 07/08/2008 Dr. Markham, [facility]. 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 Terrazas, [facility]. Type II or unspecified type diabetes mellitus without mention of complication, not stated as uncontrolled 12/06/2004 Unspecified essential hypertension 12/06/2004 Current Outpatient Medications Medication Sig tamsulosin (FLOMAX) 0.4 mg Take 0.4 mg by mouth once daily. glipiZIDE (GLUCOTROL XL) 2.5 mg 24 hr tablet Take 1 tablet by mouth once daily. gabapentin (NEURONTIN) 300 mg capsule Take 1 capsule by mouth daily at bedtime for 180 days. atorvastatin (LIPITOR) 20 mg tablet Take 20 mg by mouth once daily. [facility] 25 - 40mg per patient's medication card traZODone (DESYREL) 100 mg tablet Take 1 tablet by mouth daily at bedtime. sildenafil (VIAGRA) 100 mg tablet Take 1 tablet by mouth once daily as needed (for ED.). DULoxetine (CYMBALTA) 20 mg capsule Take 1 capsule by mouth once daily. [id number] 3.5 MG/ML-10,000 UNIT/ML-0.1% EYE DROPS metFORMIN (GLUCOPHAGE) 1,000 mg tablet Take 1 tablet by mouth daily with breakfast. olopatadine (PATANOL) 0.1 % ophthalmic solution Use 1 Drop in both eyes two times a day as needed (allergies). fexofenadine (SOWMYA ALLERGY) 180 mg tablet Take 1 tablet by mouth once daily. (Patient taking differently: Take 180 mg by mouth once daily. Unsure the name but takes OTC allergy relief medications PRN) blood sugar diagnostic (IkonopediaTOUCH ULTRA TEST) test strip Test blood sugar(s) 1 times daily. Dx:E11.9Insulin: no amLODIPine (NORVASC) 10 mg tablet Take 1 tablet by mouth once daily. [facility] (Patient taking differently: Take 10 mg by mouth once daily. [facility] 06/23/24 - 20mg per patients med card) acetaminophen (TYLENOL) 500 mg tablet Take 500 mg by mouth every 8 hours as needed. Omeprazole Magnesium (PRILOSEC OTC) 20 mg tablet Take 1 tablet by mouth daily before breakfast. 1/2hr before meal. nitroglycerin sublingual (NITROQUICK) 0.4 mg SL tablet Dissolve 0.4 mg under the tongue every 5 minutes as needed. metoprolol tartrate, short acting, (LOPRESSOR) 50 mg tablet Take 1 tablet by mouth twice daily. THERAPEUTIC MULTIVITAMIN TAB Take one(1) tablet daily. diclofenac sodium (VOLTAREN) 1 % topical gel Apply 2 g to affected area three times daily as needed(wrist pain). (Patient not taking: Reported on 06/23/2024) No current facility-administered medications for this visit. ALLERGIES Allergen Reactions Keflex [Cephalexin] Rash Rash and itching.Pt told by to discontinue Keflex immediately. Ofloxacin Hives ofloxacin ear drops Penicillins Rash PAST SURGICAL HISTORY Procedure Laterality Date COLONOSCOPY FLX DX W/COLLJ SPEC WHEN PFRMD 03/25/2004 Colonoscopy COLONOSCOPY FLX DX W/COLLJ SPEC WHEN PFRMD 04/07/2016 normal 10 year follow up CORONARY ARTERY BYP W/VEIN & ARTERY GRAFT 4 VEIN CABG, 5 vessel CYSTO W/REMOVAL OF TUMORS SMALL 04/21/2009 Excision bladder tumor CYSTOURETHROSCOPY Cystoscopy annually last 2016 DIABETES with stage 3 kidney disease ESOPHAGOGASTRODUODENOSCOPY TRANSORAL DIAGNOSTIC 03/25/2004 EGD LEFT HEART CATH 05/12/2014 Left ventriculogram, coronary arteriography, SVG angiography, SALLY arteriography LEFT HEART CATH,PERCUTANEOUS 06/2009 Cardiac cath, L heart PAST SURGICAL HISTORY OF 11/21/2005 excision lymph node right side neck PAST SURGICAL HISTORY OF 1967 Left forearm ORIF fracture. REVISE MEDIAN N/CARPAL TUNNEL SURG Right 06/09/2021 Right carpal tunnel release RPR 1ST INGUN HRNA AGE 5 YRS/> REDUCIBLE 2000 Hernia repair, inguinal RPR 1ST INGUN HRNA AGE 5 YRS/> REDUCIBLE 12/17/2012 Hernia repair, inguinal SKIN BIOPSY HX TONSILLECTOMY & ADENOIDECTOMY <AGE 12 FAMILY HISTORY Problem Relation Age of Onset Coronary Artery Disease Mother Diabetes Mother Heart Father Diabetes Father Diabetes Sister Cataract Sister Stroke Sister Blindness Sister Cancer Brother esophageal Coronary Artery Disease Brother Diabetes Brother Social History Tobacco Use Smoking status: Former Current packs/day: 0.00 Average packs/day: 1 pack/day for 20.0 years (20.0 ttl pk-yrs) Types: Cigarettes Start date: 04/23/1959 Quit date: 04/23/1979 Years since quittin.2 Smokeless tobacco: Never Vaping Use Vaping status: Never Used Substance Use Topics Alcohol use: No Drug use: No REVIEW OF SYSTEMS GENERAL: Negative for Malaise, significant weight loss, fever RESPIRATORY: Negative for cough, wheezing and shortness of breath CARDIOVASCULAR: Negative for chest pain, leg swelling and palpitations GI: Negative for abdominal discomfort, blood in stools or black stools and change in bowel habits : Negative for dysuria, frequency and incontinence MUSCULOSKELETAL: Negative for joint pain or swelling, back pain, and muscle pain. SKIN: Negative for lesions, rash, and itching. HEMATOLOGY/LYMPHOLOGY Negative for prolonged bleeding, bruising easily, and swollen nodes. ENDOCRINE: Negative for cold or heat intolerance, polyuria, polydipsia and goiter. NEURO: negative The remainder of the review of systems is noncontributory. Objective: Patient presents to clinic ambulating in sneakers Constitutional: Pt is a well developed 78 year old male who is alert, oriented, cooperative and in no apparent distress. Eyes: Following during examination. No redness or drainage. Respiratory: RR normal and nonlabored. Even breathing. No evidence of distress. Psychology: Patient is engaged during conversation. Normal affect and mood. Does not appear depressed or anxious. Vasc: DP and PT pulses are palpable bilateral. CFT is less than 5 seconds bilateral. Skin temperature is warm to warm proximal to distal bilateral. There is mild edema or varicosities noted. Hair growth present. Neuro: Protective sensation is intact to the foot and toes when tested with the 5.07 SWM bilateral.Vibratory sensation is decreased at the hallux bilateral. +Significant neurological defecits. Derm: Inspection and palpation performed. Nails b/ hallux appear discolored black distally but proximally shows clearing. No signs of infection or ingrowing toenail are noted. Skin is of normal turgor and texture. Hyperkeratosis noted to b/l 5th metatarsal. NO ulcerations, scars, verruca or other lesions noted. Ortho: Ankle joint DF is full with the knee extended and full with knee flexed. No pain or crepitusnoted. STJ, MTJ ROM are full and free of pain or crepitus. Muscle strength is 5/5 for dorsiflexors,plantarflexors, inverters, everters. Digital deformities include none. Assessment: (E11.49) Other diabetic neurological complication associated with type 2 diabetes mellitus (HCC) (primary encounter diagnosis) (L85.9) Hyperkeratosis Plan: 1. Patient was seen and evaluated. 2. Patient was instructed on the continued importance of diabetic foot care along with proper diet and keeping their blood sugar under control to prevent complications. I stressed the importance of avoiding barefoot walking, wearing good shoes and inspection of feet. 3. Callus to b/l 5th metatarsal was reduced with dremmel. Continue with good supportive shoes and/or inserts. Recommend eucerin to feet daily Instructions given both oral and written. 3. Patient is to RTC in one year. Emilie Tang DPM * Philomena Ortega RN - 06/23/2024 1:17 PM EST Patient presents with: Left Foot - Established Patient, Follow Up, Diabetic Foot Check Right Foot - Established Patient, Follow Up, Diabetic Foot Check Patient presents for follow up diabetic foot check. States that in the last 6 months or so he has dropped things on both big toes and the toenails are still discolored. JOO 06/21/23 [facility] Inst[facility]* Patient Instructions* Emilie Tang - 06/23/2024 1:45 PM EST Diabetes Foot Care Instructions When you have diabetes, proper foot care is very important. Poor foot care may lead to amputation of a foot or leg. As a person with diabetes, you are more vulnerable to foot problems, because diabetes can damage your nerves and reduce blood flow to your feet. Here are some diabetes foot care tips to follow: Wash and Dry Your Feet Daily Use mild soaps Use warm water Pat your skin dry; do not rub. Thoroughly dry your feet. After washing, use lotion on your feet to prevent cracking. Do not put lotion between your toes. Examine Your Feet Each Day Check the tops and bottoms of your feet. Have someone else look at your feet if you cannot see them. Check for dry, cracked skin. Look for blisters, cuts, scratches, or other sores. Check for redness, increased warmth, or tenderness when touching any area of your feet. Check for ingrown toenails, corns, and calluses. If you get a blister or sore from your shoes, do not pop it. Apply a bandage and wear a differentpair of shoes. Take Care of Your Toenails Cut toenails after bathing, when they are soft. Cut toenails straight across and smooth with a nail file. Avoid cutting into the corners of toes. Do not cut cuticles. If you have neuropathy (or decreased sensation in your feet) a budget manager should always cut your toenails. Be Careful When Exercising Walk and exercise in comfortable shoes. Do not exercise when you have open sores on your feet. Protect Your Feet With Shoes and Socks Never go barefoot. Always protect your feet by wearing shoes or hard-soled slippers or footwear. Avoid shoes with high heels and pointed toes. Avoid shoes that expose your toes or heels (such as open-toed shoes or sandals). These types of shoes increase your risk for injury and potential infections. Try on new footwear with the type of socks you usually wear. Do not wear new shoes for more than an hour at a time. Change your socks daily. Look and feel inside your shoes before putting them on to make sure there are no foreign objects orrough areas. Avoid tight socks. Wear natural-fiber socks (cotton, wool, or a cotton-wool blend). Wear special shoes if your health care provider recommends them. Wear shoes/boots that will protect your feet from various weather conditions (cold, moisture, etc.). Make sure your shoes fit properly. If you have neuropathy (nerve damage), you may not notice that your shoes are too tight. Perform the footwear test described below. Footwear Test Use this simple test to see if your shoes fit correctly: Stand on a piece of paper. (Make sure you are standing and not sitting, because your foot changes shape when you stand.) Trace the outline of your foot. Trace the outline of your shoe. Compare the tracings: Is the shoe too narrow? Is your foot crammed into the shoe? The shoe should be at least 1/2 inch longer than your longest toe and as wide as your foot. Proper Shoe Choices The following types of shoes are best for people with diabetes Closed toes and heels Leather uppers without a seam inside At least 1/2 inch extra space at the end of your longest toe Inside of shoe should be soft with no rough areas Outer sole should be made of stiff material Shoes should be at least as wide as your feet Tips for Foot Care in Diabetes Don't wait to treat a minor foot problem if you have diabetes. Follow your health care provider's guidelines and first aid guidelines. Report foot injuries and infections to your health care provider immediately. Check water temperature with your elbow, not your foot. Do not use a heating pad on your feet. Do not cross your legs. Do not self-treat your corns, calluses, or other foot problems. Go to your health care provider or budget manager to treat these conditions. For your dry skin: recommend eucerin or vaseline intensive care applied daily documented [facility] encounterGal[facility]25 NoteHNO ID: [id number] Author: EMILIE TANG, ? Service: ? Author Type: Physician Type: Progress Notes Filed: 06/23/2024 21:16 Note Text: Subjective: This 78 year old male presents to clinic for diabetic foot check. Patient has the following complaints: discolored hallux toenail States that over the past 6 months, he may have dropped something on the toe while working in the garage. The nails are discolored but appear to be improving. Denies any pain. Patient admits to being diabetic for 15-20 years now. Patient +B/T/N in feet at this time. Patient -pain in legs when walking. No other pedal complaints at this time. No change in medications or medical history since last visit. PAIN EVALUATION No data found in the last 1 encounters. 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 Singh. CORONARY ATHEROSCLER UNSPEC VESSEL 07/08/2008 Dr. Markham, [facility]. 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 Terrazas, [facility]. Type II or unspecified type diabetes mellitus without mention of complication, not stated as uncontrolled 12/06/2004 Unspecified essential hypertension 12/06/2004 Current Outpatient Medications Medication Sig tamsulosin (FLOMAX) 0.4 mg Take 0.4 mg by mouth once daily. glipiZIDE (GLUCOTROL XL) 2.5 mg 24 hr tablet Take 1 tablet by mouth once daily. gabapentin (NEURONTIN) 300 mg capsule Take 1 capsule by mouth daily at bedtime for 180 days. atorvastatin (LIPITOR) 20 mg tablet Take 20 mg by mouth once daily. [facility] 06/23/24 - 40mg per patient's medication card traZODone (DESYREL) 100 mg tablet Take 1 tablet by mouth daily at bedtime. sildenafil (VIAGRA) 100 mg tablet Take 1 tablet by mouth once daily as needed (for ED.). DULoxetine (CYMBALTA) 20 mg capsule Take 1 capsule by mouth once daily. [id number] 3.5 MG/ML-10,000 UNIT/ML-0.1% EYE DROPS metFORMIN (GLUCOPHAGE) 1,000 mg tablet Take 1 tablet by mouth daily with breakfast. olopatadine (PATANOL) 0.1 % ophthalmic solution Use 1 Drop in both eyes two times a day as needed (allergies). fexofenadine (SOWMYA ALLERGY) 180 mg tablet Take 1 tablet by mouth once daily. (Patient taking differently: Take 180 mg by mouth once daily. Unsure the name but takes OTC allergy relief medications PRN) blood sugar diagnostic (ONETOUCH ULTRA TEST) test strip Test blood sugar(s) 1 times daily. Dx:E11.9 Insulin: no amLODIPine (NORVASC) 10 mg tablet Take 1 tablet by mouth once daily. [facility] (Patient taking differently: Take 10 mg by mouth once daily. [facility] 06/23/24 - 20mg per patients med card) acetaminophen (TYLENOL) 500 mg tablet Take 500 mg by mouth every 8 hours as needed. Omeprazole Magnesium (PRILOSEC OTC) 20 mg tablet Take 1 tablet by mouth daily before breakfast. 1/2 hr before meal. nitroglycerin sublingual (NITROQUICK) 0.4 mg SL tablet Dissolve 0.4 mg under the tongue every 5 minutes as needed. metoprolol tartrate, short acting, (LOPRESSOR) 50 mg tablet Take 1 tablet by mouth twice daily. THERAPEUTIC MULTIVITAMIN TAB Take one(1) tablet daily. diclofenac sodium (VOLTAREN) 1 % topical gel Apply 2 g to affected area three times daily as needed (wrist pain). (Patient not taking: Reported on 06/23/2024) No current facility-administered medications for this visit. ALLERGIES Allergen Reactions Keflex [Cephalexin] Rash Rash and itching.Pt told by to discontinue Keflex immediately. Ofloxacin Hives ofloxacin ear drops Penicillins Rash PAST SURGICAL HISTORY Procedure Laterality Date COLONOSCOPY FLX DX W/COLLJ SPEC WHEN PFRMD 03/25/2004 Colonoscopy COLONOSCOPY FLX DX W/COLLJ SPEC WHEN PFRMD 04/07/2016 normal 10 year follow up CORONARY ARTERY BYP W/VEIN AND ARTERY GRAFT 4 VEIN CABG, 5 vessel CYSTO W/REMOVAL OF TUMORS SMALL 04/21/2009 Excision bladder tumor CYSTOURETHROSCOPY Cystoscopy annually last 2016 DIABETES with stage 3 kidney disease ESOPHAGOGASTRODUODENOSCO (more content not included)...[facility]03-03-[facility]25 NoteHNO ID: [id number] Author: PHILOMENA ORTEGA RN Service: ? Author Type: Registered Nurse Type: Progress Notes Filed: 06/23/2024 21:16 Note Text: Patient presents with: Left Foot - Established Patient, Follow Up, Diabetic Foot Check Right Foot - Established Patient, Follow Up, Diabetic Foot Check Patient presents for follow up diabetic foot check. States that in the last 6 months or so he has dropped things on both big toes and the toenails are still discolored. JOO 06/21/23[facility]03-03[facility] Telephone encounter Note* Telephone Encounter - Zaida Hamilton RN - 06/23/2024 10:35 AM EST The patient has been identified by name and date of : Yes Caregiver verified no other encounters exist for this prescription request: Yes Caregiver confirmed with patient/requestor that no other refills are due, in the near future, with this provider at this time: Yes The last office visit in the department: 05/12/2024 Does the patient have a future office visit with this provider/department: 11/10/2024 Requested Prescriptions Pending Prescriptions Disp Refills DULoxetine (CYMBALTA) 20 mg capsule 30 capsule 5 Sig: Take 1 capsule by mouth once daily. Zaida Hamilton RN June 23, 2024 10:36 AM [facility]03-[facility] Miscellaneous Notes* Telephone Encounter - Zaida Hamilton RN - 06/23/2024 10:35 AM EST The patient has been identified by name and date of : Yes Caregiver verified no other encounters exist for this prescription request: Yes Caregiver confirmed with patient/requestor that no other refills are due, in the near future, with this provider at this time: Yes The last office visit in the department: 05/12/2024 Does the patient have a future office visit with this provider/department: 11/10/2024 Requested Prescriptions Pending Prescriptions Disp Refills DULoxetine (CYMBALTA) 20 mg capsule 30 capsule 5 Sig: Take 1 capsule by mouth once daily. Zaida Hamilton RN June 23, 2024 10:36 AM [facility] Telephone encounter Note * Telephone Encounter - Gisselle Craven LPN - 05/13/2024 1:33 PM EST Duplicate. [facility] Miscellaneous Notes* Telephone Encounter - Gisselle Craven LPN - 05/13/2024 1:33 PM EST Duplicate. * Telephone Encounter - Gisselle Craven LPN - 05/13/2024 1:32 PM EST ----- Message from Prince Celeste MD sent at 05/13/2024 12:43 PM EST ----- 1) diabetes worse. A1C 7.4. Start glipizide ER 2.5 mg daily before breakfast. He has taken this before. Continue metformin, same dose. 2) Chronic kidney disease is overall stable. Urine negative for protein. [facility] Telephone encounter Note * Telephone Encounter - Gisselle Craven LPN - 05/13/2024 1:32 PM EST ----- Message from Prince Celeste MD sent at 05/13/2024 12:43 PM EST ----- 1) diabetes worse. A1C 7.4. Start glipizide ER 2.5 mg daily before breakfast. He has taken this before. Continue metformin, same dose. 2) Chronic kidney disease is overall stable. Urine negative for protein. [facility] Telephone encounter Note* Telephone Encounter - Barron Burrows RN - 05/13/2024 1:29 PM EST Pt returned call and given provider's message below with verbalized understanding. Pt agreeable. [facility] Miscellaneous Notes* Telephone Encounter - Barron Burrows RN - 05/13/2024 1:29 PM EST Pt returned call and given provider's message below with verbalized understanding. Pt agreeable. * Telephone Encounter - Gisselle Craven LPN - 05/13/2024 1:06 PM EST Left message for Patient to call & ask to speak to a nurse. Gisselle Craven LPN * Telephone Encounter - Gisselle Craven LPN - 05/13/2024 1:05 PM EST ----- Message from Prince Celeste MD sent at 05/13/2024 12:43 PM EST ----- 1) diabetes worse. A1C 7.4. Start glipizide ER 2.5 mg daily before breakfast. He has taken this before. Continue metformin, same dose. 2) Chronic kidney disease is overall stable. Urine negative for protein. documented in [facility] encounterGal[facility]01-[facility] Telephone encounter Note * Telephone Encounter - Gisselle Craven LPN - 05/13/2024 1:06 PM EST Left message for Patient to call & ask to speak to a nurse. Gisselle Craven LPN [facility] Telephone encounter Note* Telephone Encounter - Gisselle Craven LPN - 05/13/2024 1:05 PM EST ----- Message from Prince Celeste MD sent at 05/13/2024 12:43 PM EST ----- 1) diabetes worse. A1C 7.4. Start glipizide ER 2.5 mg daily before breakfast. He has taken this before. Continue metformin, same dose. 2) Chronic kidney disease is overall stable. Urine negative for protein. [facility] Evaluation note* Diagnosis Type 2 diabetes mellitus with stage 3a chronic kidney disease, without long-term current use of insulin (HCC)- Primary documented [facility] this encounter [facility]25 NoteHNO ID: [id number] Author: PRINCE CELESTE MD Service: ? Author Type: Physician Type: Progress Notes Filed: 05/12/2024 13:29 Note Text: This note was created using M:Metricsriter. Subjective Seda Menchaca is a 78 year old male. Diabetes was reportedly controlled. 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 On medication reconciliation, tamsulosin was no longer visible. He described orthostatic dizziness that he related to Herpes zoster. His facial neuralgia was controlled. In fact, he reduced gabapentin on his own 1 month ago, also due to mental fogging. Review of Systems Constitutional: Negative for fatigue and fever. HENT: Negative for congestion. Respiratory: Negative for cough and shortness of breath. Cardiovascular: Negative for chest pain, palpitations and leg swelling. Gastrointestinal: Negative for constipation, diarrhea, nausea and vomiting. Genitourinary: Negative for difficulty urinating and dysuria. Neurological: Positive for light-headedness and headaches. Negative for facial asymmetry. 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 sildenafil (VIAGRA) 100 mg tablet Take 1 tablet by mouth once daily as needed (for ED.). DULoxetine (CYMBALTA) 20 mg capsule Take 1 capsule by mouth once daily. [id number] 3.5 MG/ML-10,000 UNIT/ML-0.1% EYE DROPS metFORMIN (GLUCOPHAGE) 1,000 mg tablet Take 1 tablet by mouth daily with breakfast. olopatadine (PATANOL) 0.1 % ophthalmic solution Use 1 Drop in both eyes two times a day as needed (allergies). fexofenadine (SOWMYA ALLERGY) 180 mg tablet Take 1 tablet by mouth once daily. blood sugar diagnostic ([employer]ylah ULTRA TEST) test strip Test blood sugar(s) 1 times daily. Dx:E11.9 Insulin: no amLODIPine (NORVASC) 10 mg tablet Take 1 tablet by mouth once daily. [facility] acetaminophen (TYLENOL) 500 mg tablet Take 500 mg by mouth every 8 hours as needed. diclofenac sodium (VOLTAREN) 1 % topical gel Apply 2 g to affected area three times daily as needed (wrist pain). Omeprazole Magnesium (PRILOSEC OTC) 20 mg tablet Take 1 tablet by mouth daily before breakfast. 1/2 hr before meal. nitroglycerin sublingual (NITROQUICK) 0.4 mg SL tablet Dissolve 0.4 mg under the tongue every 5 minutes as needed. metoprolol tartrate, short acting, (LOPRESSOR) 50 mg tablet Take 1 tablet by mouth twice daily. THERAPEUTIC MULTIVITAMIN TAB Take one(1) tablet daily. gabapentin (NEURONTIN) 300 mg capsule Take 1 capsule by mouth daily at bedtime for 180 days. atorvastatin (LIPITOR) 20 mg tablet Take 1 tablet by mouth once daily. [facility]. No current facility-administered medications for this visit. Objective BP 114/66 (BP Site: Right Arm, BP Position: Sitting, BP Cuff Size: Large Adult) Pulse 60 Temp 36.4 ?C (97.5 ?F) (Temporal) Resp 16 Wt 63.1 kg (139 lb 1.8 oz) BMI 23.44 kg/m? Physical Exam Constitutional: General: He is not in acute distress. Appearance: He is not ill-appearing. HENT: Head: Normocephalic. Eyes: Extraocular Movements: Extraocular movements intact. Conjunctiva/sclera: Conjunctivae normal. Cardiovascular: Rate and Rhythm: Normal rate and regular rhythm. Heart sounds: No murmur heard. No gallop. Pulmonary: Breath sounds: Normal breath sounds. Musculoskeletal: Right lower leg: No edema. Left lower leg: No edema. Neurological: General: No focal deficit present. Mental Status: He is alert. Coordination: Coordination normal. Gait: Gait normal. Assessment and Plan 1. Essential hypertension - ICD9: 401.9, ICD10: I10 (primary diagnosis) - Controlled - Continue current medications - COMPLETE BLOOD COUNT 2. Encounter for immunization - ICD9: V03.89, ICD10: Z23 - PFIZER-BIONTECH COVID-19 VACCINE AGE 12+ YR ([place]Y) 3. Type 2 diabetes mellitus with stage 3a chronic kidney disease, without long-term (more content not included)...[facility]01-20-2025 History of Present illness Narrative* Prince Celeste MD - 05/12/2024 1:04 PM EST This note was created using GoSportyter. Subjective Seda Menchaca is a 78 year old male. Diabetes was reportedly controlled. 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 On medication reconciliation, tamsulosin was no longer visible. He described orthostatic dizziness that he related to Herpes zoster. His facial neuralgia was controlled. In fact, he reduced gabapentin on his own 1 month ago, also due to mental fogging. Review of Systems Constitutional: Negative for fatigue and fever. HENT: Negative for congestion. Respiratory: Negative for cough and shortness of breath. Cardiovascular: Negative for chest pain, palpitations and leg swelling. Gastrointestinal: Negative for constipation, diarrhea, nausea and vomiting. Genitourinary: Negative for difficulty urinating and dysuria. Neurological: Positive for light-headedness and headaches. Negative for facial asymmetry. 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 sildenafil (VIAGRA) 100 mg tablet Take 1 tablet by mouth once daily as needed (for ED.). DULoxetine (CYMBALTA) 20 mg capsule Take 1 capsule by mouth once daily. [id number] 3.5 MG/ML-10,000 UNIT/ML-0.1% EYE DROPS metFORMIN (GLUCOPHAGE) 1,000 mg tablet Take 1 tablet by mouth daily with breakfast. olopatadine (PATANOL) 0.1 % ophthalmic solution Use 1 Drop in both eyes two times a day as needed (allergies). fexofenadine (SOWMYA ALLERGY) 180 mg tablet Take 1 tablet by mouth once daily. blood sugar diagnostic (Twylah ULTRA TEST) test strip Test blood sugar(s) 1 times daily. Dx:E11.9Insulin: no amLODIPine (NORVASC) 10 mg tablet Take 1 tablet by mouth once daily. [facility] acetaminophen (TYLENOL) 500 mg tablet Take 500 mg by mouth every 8 hours as needed. diclofenac sodium (VOLTAREN) 1 % topical gel Apply 2 g to affected area three times daily as needed(wrist pain). Omeprazole Magnesium (PRILOSEC OTC) 20 mg tablet Take 1 tablet by mouth daily before breakfast. 1/2hr before meal. nitroglycerin sublingual (NITROQUICK) 0.4 mg SL tablet Dissolve 0.4 mg under the tongue every 5 minutes as needed. metoprolol tartrate, short acting, (LOPRESSOR) 50 mg tablet Take 1 tablet by mouth twice daily. THERAPEUTIC MULTIVITAMIN TAB Take one(1) tablet daily. gabapentin (NEURONTIN) 300 mg capsule Take 1 capsule by mouth daily at bedtime for 180 days. atorvastatin (LIPITOR) 20 mg tablet Take 1 tablet by mouth once daily. [facility]. No current facility-administered medications for this visit. Objective BP 114/66 (BP Site: Right Arm, BP Position: Sitting, BP Cuff Size: Large Adult) Pulse 60 Temp 36.4 C (97.5 F) (Temporal) Resp 16 Wt 63.1 kg (139 lb 1.8 oz) BMI 23.44 kg/m Physical Exam Constitutional: General: He is not in acute distress. Appearance: He is not ill-appearing. HENT: Head: Normocephalic. Eyes: Extraocular Movements: Extraocular movements intact. Conjunctiva/sclera: Conjunctivae normal. Cardiovascular: Rate and Rhythm: Normal rate and regular rhythm. Heart sounds: No murmur heard. No gallop. Pulmonary: Breath sounds: Normal breath sounds. Musculoskeletal: Right lower leg: No edema. Left lower leg: No edema. Neurological: General: No focal deficit present. Mental Status: He is alert. Coordination: Coordination normal. Gait: Gait normal. Assessment and Plan 1. Essential hypertension - ICD9: 401.9, ICD10: I10 (primary diagnosis) - Controlled - Continue current medications - COMPLETE BLOOD COUNT 2. Encounter for immunization - ICD9: V03.89, ICD10: Z23 - PFIZER-BIONTPollfish COVID-19 VACCINE AGE 12+ YR ([place]) 3. Type 2 diabetes mellitus with stage 3a chronic kidney disease, without long- term current use of insulin ([facility]) - ICD9: 250.40, 585.3, ICD10: E11.22, N18.31 - Control undetermined, due for labs - Continue current medications - eGFR: 48 Due for labs - BASIC METABOLIC PANEL - HEMOGLOBIN A1C - ALBUMIN/CREATININE RATIO, URINE - HEMOGLOBIN A1C 4. Post zoster neuralgia - ICD9: 053.19, ICD10: B02.29 Dose reduced one month ago. Discuss further dose reduction next visit. - GABAPENTIN 300 MG CAPSULE 5. Pure hypercholesterolemia - ICD9: 272.0, ICD10: E78.00 Controlled. Medication dose updated. - COMPREHENSIVE METABOLIC PANEL - LIPID PANEL BASIC - ATORVASTATIN 20 MG TABLET Prince Celeste MD [facility] Telephone encounter Note * Telephone Encounter - Cindi Siu LPN - 03/31/2024 12:17 PM EST Pt wanted to let pcp know that the shingles rash has dried up but he still has itching and numbnesson head and nose. Prescription Refill Information The patient has been identified by name and date of : Yes Caregiver verified no other encounters exist for this prescription request: Yes Caregiver confirmed with patient/requestor that no other refills are due, in the near future, with this provider at this time: Yes The last office visit in the department: 11/12/23 Does the patient have a future office visit with this provider/department: Yes 05/12/24 Requested Prescriptions Pending Prescriptions Disp Refills gabapentin (NEURONTIN) 300 mg capsule 60 capsule 2 Sig: Take 1 capsule by mouth two times a day for 90 days. traZODone (DESYREL) 100 mg tablet 90 tablet 1 Sig: Take 1 tablet by mouth daily at bedtime. Cindi Siu LPN March 31, 2024 12:23 PM [facility]12[facility] Miscellaneous Notes* Telephone Encounter - Cindi Siu LPN - 03/31/2024 12:17 PM EST Pt wanted to let pcp know that the shingles rash has dried up but he still has itching and numbnesson head and nose. Prescription Refill Information The patient has been identified by name and date of : Yes Caregiver verified no other encounters exist for this prescription request: Yes Caregiver confirmed with patient/requestor that no other refills are due, in the near future, with this provider at this time: Yes The last office visit in the department: 11/12/23 Does the patient have a future office visit with this provider/department: Yes 05/12/24 Requested Prescriptions Pending Prescriptions Disp Refills gabapentin (NEURONTIN) 300 mg capsule 60 capsule 2 Sig: Take 1 capsule by mouth two times a day for 90 days. traZODone (DESYREL) 100 mg tablet 90 tablet 1 Sig: Take 1 tablet by mouth daily at bedtime. Cindi Siu LPN March 31, 2024 12:23 PM documented in this encounterGalion Hospital10-15-2024 NoteHNO ID: [id number] Author: ?, ?, ? Service: ? Author Type: ? Type: Progress Notes Filed: 02/05/2024 10:08 Note Text: Seda Menchaca is identified through a medication adherence outreach initiative based on pharmacy claims data from [employer] (insurer) for Statin medication(s). Patient is reviewed 02/05/24 due to medication adherence concerns with the following medications (name, strength, sig): atorvastatin 40mg, take 1 tablet daily. Per data/report, last fill date and days supply: due 01/14/24 Per reconcile dispense, last fill date and days supply: filled 10/16/23 for 90 days Per call to pharmacy, last picked up date and days supply: n/a Contacted patient: No answer; left generic VM Outcome of review/outreach: (choose outcome source and status) [facility] of Present illness Narrative* Juan Antonio Duarte - 02/05/2024 10:06 AM EDT Seda Menchaca is identified through a medication adherence outreach initiative based on pharmacy claims data from [employer] (insurer) for Statin medication(s). Patient is reviewed 02/05/24 due to medication adherence concerns with the following medications (name, strength, sig): atorvastatin 40mg, take 1 tablet daily. Per data/report, last fill date and days supply: due 01/14/24 Per reconcile dispense, last fill date and days supply: filled 10/16/23 for 90 days Per call to pharmacy, last picked up date and days supply: n/a Contacted patient: No answer; left generic VM Outcome of review/outreach: (choose outcome source and status) 2nd attempt NAHID Duarte documented in this encounterGalion Hospital10-15-2024 NotePatient Outreach (PHPOHE) MENCHACASEDA ([id number]) 1945 M Date Time Provider Department 02/05/24 PRINCE CELESTE During your visit today, we recorded the following information about you: Juan Antonio Duarte 02/05/2024 10:08 AM Signed Seda Menchaca is identified through a medication adherence outreach initiative based on pharmacy claims data from [employer] (insurer) for Statin medication(s). Patient is reviewed 02/05/24 due to medication adherence concerns with the following medications (name, strength, sig): atorvastatin 40mg, take 1 tablet daily. Per data/report, last fill date and days supply: due 01/14/24 Per reconcile dispense, last fill date and days supply: filled 10/16/23 for 90 days Per call to pharmacy, last picked up date and days supply: n/a Contacted patient: No answer; left generic VM Outcome of review/outreach: (choose outcome source and status) 2nd attempt LVM Juan Antonio Duarte Allergies As of Date: 02/05/2024 Noted Allergy Reaction KEFLEX (CEPHALEXIN) 08/09/2007 2 - Rash Comments: Rash and itching.Pt told by to discontinue Keflex immediately. OFLOXACIN 12/12/2013 4 - Hives Comments: ofloxacin ear drops PENICILLINS 12/06/2004 2 - Rash Date Reviewed: 11/12/2023 Reviewed by: Gisselle Craven LPN - Fully Assessed Reason for Visit: Allied Health Visit [5] Cmt: Medication Adherence Outreach Prescriptions as of 02/05/2024 - gabapentin (NEURONTIN) 300 mg capsule Take 1 capsule by mouth two times a day for 90 days. - traZODone (DESYREL) 100 mg tablet Take 1 tablet by mouth daily at bedtime. - sildenafil (VIAGRA) 100 mg tablet Take 1 tablet by mouth once daily as needed (for ED.). - DULoxetine (CYMBALTA) 20 mg capsule Take 1 capsule by mouth once daily. - [id number]-[id number]-[id number] 3.5 MG/ML-10,000 UNIT/ML-0.1% EYE DROPS - metFORMIN (GLUCOPHAGE) 1,000 mg tablet Take 1 tablet by mouth daily with breakfast. - olopatadine (PATANOL) 0.1 % ophthalmic solution Use 1 Drop in both eyes two times a day as needed (allergies). - atorvastatin (LIPITOR) 40 mg tablet Take 1 tablet by mouth daily at bedtime. For cholesterol. - fexofenadine (SOWMYA ALLERGY) 180 mg tablet Take 1 tablet by mouth once daily. - blood sugar diagnostic ([facility]ylah ULTRA TEST) test strip Test blood sugar(s) 1 times daily. Dx:E11.9 Insulin: no - amLODIPine (NORVASC) 10 mg tablet Take 1 tablet by mouth once daily. [facility] - acetaminophen (TYLENOL) 500 mg tablet Take 500 mg by mouth every 8 hours as needed. - diclofenac sodium (VOLTAREN) 1 % topical gel Apply 2 g to affected area three times daily as needed (wrist pain). - Omeprazole Magnesium (PRILOSEC OTC) 20 mg tablet Take 1 tablet by mouth daily before breakfast. 1/2 hr before meal. - nitroglycerin sublingual (NITROQUICK) 0.4 mg SL tablet Dissolve 0.4 mg under the tongue every 5 minutes as needed. - metoprolol tartrate, short acting, (LOPRESSOR) 50 mg tablet Take 1 tablet by mouth twice daily. - tamsulosin (FLOMAX) 0.4 mg Take 1 capsule by mouth daily at bedtime. Dr. Singh. - THERAPEUTIC MULTIVITAMIN TAB Take one(1) tablet daily. 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] 08/29/2007 03/13/2014 Disorders of bursae and tendons in shoulder reg*05/26/2008 03/06/2013 IMPOTENCE, ORGANIC ORIGN [N52.9] 05/26/2008 Coronary atherosclerosis [I25.10] 07/08/2008 Overweight(278.02) [E66.3] 07/15/2008 03/13/2014 Anemia, unspecified [D64.9] 07/20/2008 03/06/2013 GERD (gastroesophageal reflux disease) [K21.9] 02/17/2009 Bladder Cancer [C67.9] 05/20/2009 Osteoarthritis [M19.90] 05/20/2009 Dysuria [R30.0] 09/04/2012 03/06/2013 Right inguinal hernia [K40.90] 12/25/2012 03/06/2013 Lumbago with sciatica, unspecified side [M54.40]03/16/2015 CKD (chronic kidney disease) stage 3, GFR 30-59*06/28/2015 11/07/2021 Acute bilateral low back pain without sciatica *12/01/2015 12/12/2016 Cervicalgia of ikpwczdw-llqaqop-gubzl region [M*06/13/2018 Squamous cell cancer of scalp and skin of neck *06/12/2019 Arthritis of hand [M19.049] 01/21/2020 Hypertensive kidney disease with stage 3 chroni*11/03/2021 Insomnia [G47.00] 11/08/2022 Post zoster neuralgia [B02.29] 07/25/2023 Herpes zoster keratitis [B02.33] 07/25/2023 Abducens (sixth) nerve palsy, left [H49.22] 07/25/2023 Encounter Status:Closed by JUAN ANTONIO DUARTE on 02/05/24[facility] 01-16-2024 NoteHNO ID: [id number] Author: JADE MALAVE MA Service: ? Author Type: Washtub Worker Type: Progress Notes Filed: 01/16/2024 10:09 Note Text: POPULATION HEALTH NAVIGATION OUTREACH Action/I January 16, 2024 Patient is on [facility] Medication Adherence list for the following medications: ATORVASTATIN 40MG TAB ATORVASTATIN 40MG TAB Sig: take 1 tablet by mouth at bedtime Dispensed: 10/16/2023 12:00 AM Unit strength: 40 mg Unit form: tablet Days supply: 90 Quantity: 90 Each Refills remainin Dispense Due Date 01.14.2024 Pharmacy: [place] [address] - [phone] [phone] Outcome: Left message on voicemail. No My chart as second outreach Reason for Outreach Med Adherence Patient Contacted: Unable or unnecessary to reach patient: Left message Navigation Signature: Jade Malave MA January 15[facility] History of Present illness Narrative* Jade Malave MA - 01/16/2024 8:03 AM EDT POPULATION HEALTH NAVIGATION OUTREACH Action/January 16, 2024 Patient is on [facility] Medication Adherence list for the following medications: ATORVASTATIN 40MG TAB ATORVASTATIN 40MG TAB Sig: take 1 tablet by mouth at bedtime Dispensed: 10/16/2023 12:00 AM Unit strength: 40 mg Unit form: tablet Days supply: 90 Quantity: 90 Each Refills remainin Dispense Due Date 01.14.2024 Pharmacy: [place] [address] - [phone] [phone] Outcome: Left message on voicemail. No My chart as second outreach Reason for Outreach Med Adherence Patient Contacted: Unable or unnecessary to reach patient: Left message Navigation Signature: Jade Malave MA January 16, 2024 documented in this encounterGal[facility]09-25-[facility]24 NotePatient Outreach (NETNAV) SEDA MENCHACA ([id number]) 1945 Date Time Provider Department 01/16/24 JADE MALAVE During your visit today, we recorded the following information about you: Jade Malave MA 01/16/2024 10:09 AM Signed POPULATION HEALTH NAVIGATION OUTREACH Action/January 16, 2024 Patient is on [facility] Medication Adherence list for the following medications: ATORVASTATIN 40MG TAB ATORVASTATIN 40MG TAB Sig: take 1 tablet by mouth at bedtime Dispensed: 10/16/2023 12:00 AM Unit strength: 40 mg Unit form: tablet Days supply: 90 Quantity: 90 Each Refills remainin Dispense Due Date 01.14.2024 Pharmacy: [place] [address] - [phone] [phone] Outcome: Left message on voicemail. No My chart as second outreach Reason for Outreach Med Adherence Patient Contacted: Unable or unnecessary to reach patient: Left message Navigation Signature: Jade Malave MA January 16, 2024 Allergies As of Date: 01/16/2024 Noted Allergy Reaction KEFLEX (CEPHALEXIN) 08/09/2007 2 - Rash Comments: Rash and itching.Pt told by to discontinue Keflex immediately. OFLOXACIN 12/12/2013 4 - Hives Comments: ofloxacin ear drops PENICILLINS 12/06/2004 2 - Rash Date Reviewed: 11/12/2023 Reviewed by: Gisselle Craven LPN - Fully Assessed Reason for Visit: Population Health Navigation Outreach [3910] Cmt: [place] Medication Adherence Prescriptions as of 01/16/2024 - gabapentin (NEURONTIN) 300 mg capsule Take 1 capsule by mouth two times a day for 90 days. - traZODone (DESYREL) 100 mg tablet Take 1 tablet by mouth daily at bedtime. - sildenafil (VIAGRA) 100 mg tablet Take 1 tablet by mouth once daily as needed (for ED.). - DULoxetine (CYMBALTA) 20 mg capsule Take 1 capsule by mouth once daily. - KLPCTFWW-FJXSTSVWJ-PPPBJYTZ 3.5 MG/ML-10,000 UNIT/ML-0.1% EYE DROPS - metFORMIN (GLUCOPHAGE) 1,000 mg tablet Take 1 tablet by mouth daily with breakfast. - olopatadine (PATANOL) 0.1 % ophthalmic solution Use 1 Drop in both eyes two times a day as needed (allergies). - atorvastatin (LIPITOR) 40 mg tablet Take 1 tablet by mouth daily at bedtime. For cholesterol. - fexofenadine (SOWMYA ALLERGY) 180 mg tablet Take 1 tablet by mouth once daily. - blood sugar diagnostic (IkonopediaTOUCH ULTRA TEST) test strip Test blood sugar(s) 1 times daily. Dx:E11.9 Insulin: no - amLODIPine (NORVASC) 10 mg tablet Take 1 tablet by mouth once daily. [facility] - acetaminophen (TYLENOL) 500 mg tablet Take 500 mg by mouth every 8 hours as needed. - diclofenac sodium (VOLTAREN) 1 % topical gel Apply 2 g to affected area three times daily as needed (wrist pain). - Omeprazole Magnesium (PRILOSEC OTC) 20 mg tablet Take 1 tablet by mouth daily before breakfast. 1/2 hr before meal. - nitroglycerin sublingual (NITROQUICK) 0.4 mg SL tablet Dissolve 0.4 mg under the tongue every 5 minutes as needed. - metoprolol tartrate, short acting, (LOPRESSOR) 50 mg tablet Take 1 tablet by mouth twice daily. - tamsulosin (FLOMAX) 0.4 mg Take 1 capsule by mouth daily at bedtime. Dr. Singh. - THERAPEUTIC MULTIVITAMIN TAB Take one(1) tablet daily. 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] 08/29/2007 03/13/2014 Disorders of bursae and tendons in shoulder reg*05/26/2008 03/06/2013 IMPOTENCE, ORGANIC ORIGN [N52.9] 05/26/2008 Coronary atherosclerosis [I25.10] 07/08/2008 Overweight(278.02) [E66.3] 07/15/2008 03/13/2014 Anemia, unspecified [D64.9] 07/20/2008 03/06/2013 GERD (gastroesophageal reflux disease) [K21.9] 02/17/2009 Bladder Cancer [C67.9] 05/20/2009 Osteoarthritis [M19.90] 05/20/2009 Dysuria [R30.0] 09/04/2012 03/06/2013 Right inguinal hernia [K40.90] 12/25/2012 03/06/2013 Lumbago with sciatica, unspecified side [M54.40]03/16/2015 CKD (chronic kidney disease) stage 3, GFR 30-59*06/28/2015 11/07/2021 Acute bilateral low back pain without sciatica *12/01/2015 12/12/2016 Cervicalgia of [place] region [M*06/13/2018 Squamous cell cancer of scalp and skin of neck *06/12/2019 Arthritis of hand [M19.049] 01/21/2020 Hypertensive kidney disease with stage 3 chroni*11/03/2021 Insomnia [G47.00] 11/08/2022 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 Telephone encounter Note* Telephone Encounter - Natalie Mauricio RN - 11/14/2023 11:34 AM EDT Patient notified of results. Patient verbalizes understanding. Natalie Mauricio RN [facility] Miscellaneous Notes* Telephone Encounter - Natalie Mauricio RN - 11/14/2023 11:34 AM EDT Patient notified of results. Patient verbalizes understanding. Natalie Mauricio RN * Telephone Encounter - Gisselle Craven LPN - 11/14/2023 8:52 AM EDT Left message to call & speak to nurse re: results. Gisselle Craven LPN * Telephone Encounter - Gisselle Craven LPN - 11/14/2023 8:50 AM EDT ----- Message from Prince Celeste MD sent at 11/14/2023 8:31 AM EDT ----- DM reasonably controlled with improved A1c of 6.3 . Chronic kidney disease stable Cholesterol controlled at total cholesterol 119. documented in this encounterGalion [facility]07-[facility]24 Telephone encounter Note * Telephone Encounter - Gisselle Craven LPN - 11/14/2023 8:52 AM EDT Left message to call & speak to nurse re: results. Gisselle Craven LPN [facility]07-24-2024 Telephone encounter Note* Telephone Encounter - Gisselle Craven LPN - 11/14/2023 8:50 AM EDT ----- Message from Prince Celeste MD sent at 11/14/2023 8:31 AM EDT ----- DM reasonably controlled with improved A1c of 6.3 . Chronic kidney disease stable Cholesterol controlled at total cholesterol 119. [facility]07-22-2024 Instructions* Patient Instructions* Prince Celeste MD - 11/12/2023 2:51 PM EDT Screening schedule The following prevention plan is recommended: Shingrix Vaccine(1 of 2) Never done RSV Vaccine(1 - 1-dose 60+ series) Never done Dilated Retinal Exam due on 01/17/2023 LDL Cholesterol due on 07/27/2023 HbA1C due on 11/08/2023 WHAT YOU CAN DO TO PREVENT FALLS Many falls can be prevented. By making some changes, you can lower your chances of falling. Four things YOU can do to prevent falls for you* and your caregiver 1. Begin a regular exercise program Exercise is one of the most important ways to lower your chances of falling. It makes you stronger and helps you feel better. Exercises that improve balance and coordination (like Paco Chi) are the most helpful. Lack of exercise leads to weakness and increases your chances of falling. Ask your doctor or health care provider about the best type of exercise program for you. 2. Have your health care provider review your medicines Have your doctor or pharmacist review all the medicines you take, even kthz-bcs-fyetcyc medicines. As you get older, the way medicines work in your body can change. Some medicines, or combinations of medicines, can make you sleepy or dizzy andcan cause you to fall. 3. Have your vision checked Have your eyes checked by an eye doctor at least once a year. You may be wearing the wrong glasses or have a condition like glaucoma or cataracts that limits your vision. Poor vision can increase your chances of falling. 4. Make your home safer About half of all falls happen at home. To make your home safer: Remove things you can trip over (like papers, books, clothes, and shoes) from stairs and places where you walk. Remove small throw rugs or use double-sided tape to keep the rugs from slipping. Keep items you use often in cabinets you can reach easily without using a step stool. Have grab bars put in next to your toilet and in the tub or shower. Use non-slip mats in the bathtub and on shower floors. Improve the lighting in your home. As you get older, you need brighter lights to see well. Hang light-weight curtains or shades to reduce glare. Have handrails and lights put in on all staircases. Wear shoes both inside and outside the house. Avoid going barefoot or wearing slippers. For more information, contact: Centers for Disease Control and Prevention www.cdc.gov/injury * This information may not apply if you have certain medical conditions. [facility] NoteHNO ID: [id number] Author: PRINCE CELESTE MD Service: ? Author Type: Physician Type: Progress Notes Filed: 11/12/2023 14:51 Note Text: This note was created using M:Metricsriter. Subjective Seda Menchaca is a 77 year old male. He started having recurrent hypoglycemia, and we had to stop Glipizide. His glucose was now elevating. His neuralgia was stable. Herpetic keratitis was reported to be healed. His diplopia was resolved. He saw the early childhood specialist in [place] who released him back to his local specialists. He was driving without difficulty. Review of Systems Constitutional: Negative for fatigue and fever. HENT: Negative. Eyes: Negative for visual disturbance. Respiratory: Negative for cough, shortness of breath and wheezing. Cardiovascular: Negative for chest pain, palpitations and leg swelling. Gastrointestinal: Negative. Genitourinary: Negative. Neurological: Positive for numbness. 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 Physical Exam Constitutional: Appearance: He is not ill-appearing. HENT: Head: Normocephalic. Eyes: Extraocular Movements: Extraocular movements intact. Conjunctiva/sclera: Conjunctivae normal. Cardiovascular: Rate and Rhythm: Normal rate and regular rhythm. Heart sounds: No murmur heard. No gallop. Pulmonary: Breath sounds: Normal breath sounds. Musculoskeletal: Right lower leg: No edema. Left lower leg: No edema. Lymphadenopathy: Cervical: No cervical adenopathy. Neurological: Mental Status: He is alert. Feet:Shoes and socks removed, No deformities, ulcers, calluses, abnormal pulses Decreased bilaterally, sensitive to 10 gm monofilament, and nails notable for Deformed, Hypertrophic, or Yellowish. Post traumatic ecchymosis of both big toenails. No hematoma or tenderness. Labs being processed. Assessment and Plan 1. Medicare annual wellness visit, subsequent - ICD9: V70.0, ICD10: Z00.00 (primary diagnosis) See wellness. 2. 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 3. Type 2 diabetes mellitus with stage 3a chronic kidney disease, without long-term current use of insulin (HCC) - ICD9: 250.40, 585.3, ICD10: E11.22, N18.31 Labile. Recent hypoglcemia. - Continue current medications 4. Essential hypertension - ICD9: 401.9, ICD10: I10 - Controlled - Continue current medications 5. Need for COVID-19 vaccine - ICD9: V04.89, ICD10: Z23 - [employer] COVID-19 VACCINE ( [place]) AGE 12+ YR Prince Celeste [facility]07-22-2024 History of Present illness Narrative* Prince Celeste MD - 11/12/2023 2:44 PM EDT This note was created using M:Metricsriter. Subjective Seda Menchaca is a 77 year old male. He started having recurrent hypoglycemia, and we had to stop Glipizide. His glucose was now elevating. His neuralgia was stable. Herpetic keratitis was reported to be healed. His diplopia was resolved. He saw the early childhood specialist in [place] who released him back to his local specialists. He was drivingwithout difficulty. Review of Systems Constitutional: Negative for fatigue and fever. HENT: Negative. Eyes: Negative for visual disturbance. Respiratory: Negative for cough, shortness of breath and wheezing. Cardiovascular: Negative for chest pain, palpitations and leg swelling. Gastrointestinal: Negative. Genitourinary: Negative. Neurological: Positive for numbness. 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 HENT: Head: Normocephalic. Eyes: Extraocular Movements: Extraocular movements intact. Conjunctiva/sclera: Conjunctivae normal. Cardiovascular: Rate and Rhythm: Normal rate and regular rhythm. Heart sounds: No murmur heard. No gallop. Pulmonary: Breath sounds: Normal breath sounds. Musculoskeletal: Right lower leg: No edema. Left lower leg: No edema. Lymphadenopathy: Cervical: No cervical adenopathy. Neurological: Mental Status: He is alert. Feet:Shoes and socks removed, No deformities, ulcers, calluses, abnormal pulses Decreased bilaterally, sensitive to 10 gm monofilament, and nails notable for Deformed, Hypertrophic, or Yellowish. Post traumatic ecchymosis of both big toenails. No hematoma or tenderness. Labs being processed. Assessment and Plan 1. Medicare annual wellness visit, subsequent - ICD9: V70.0, ICD10: Z00.00 (primary diagnosis) See wellness. 2. 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 3. Type 2 diabetes mellitus with stage 3a chronic kidney disease, without long- term current use of insulin (HCC) - ICD9: 250.40, 585.3, ICD10: E11.22, N18.31 Labile. Recent hypoglcemia. - Continue current medications 4. Essential hypertension - ICD9: 401.9, ICD10: I10 - Controlled - Continue current medications 5. Need for COVID-19 vaccine - ICD9: V04.89, ICD10: Z23 - [employer]oll[employer] COVID-19 VACCINE ( [place]) AGE 12+ YR Prince Celeste MD * Prince Celeste MD - 11/12/2023 2:36 PM EDT Images from the original note were not included. Seda Menchaca is a 77 year old male here for a Medicare wellness visit. Medicare Health Risk Assessment General Health Good Exercise: Minutes/Day 10 min Exercise: Days/Week 2 days Alcohol: Daily Use Never Alcohol: Drinks/Day Patient does not drink Alcohol: 6 or more drinks Never Feel off balance Yes Concerns: Teeth/Dentures No Concerns: Sexual function Yes Troubled by feelings None of the above Frequency: Eating healthy diet Nearly every day ADLs requiring help Handling finances Safety precautions in home/vehicle Yes Smoke, vape, chews tobacco No Difficulty hearing No Difficulty seeing No Current Providers Specialists: I have reviewed specialist-related care of the patient in the medical record. Current care team: Patient Care Team: Prince Celeste MD as PCP - General Outside specialists seen: Dr. David Fox, cardiology, [facility]. Dr. Dale Singh, urology. Dr. Spencer Bailey, optometry. Dr Terrazas, [facility]. Dr. Karmen Delgado, [facility]. Dr. Karmen Diamond, nephrology. Dr. Michael Rivas, ophthalmology. Medical/Family history review Reviewed and updated problem list, medical/surgical/family/social history, medications, and allergies. Opioid use review Opioid Medications (last 90 days) No data to display Anxiety/Depression screening PHQ-2 Score: 0 (Lower risk for depression) ESME-2 Score: 0 (Lower risk for anxiety) Recommendation: no further intervention at this time Cognitive screening Mini Cog Score: 3 Cognitive screening reviewed and No further action needed (score 3-5). Functional Observation Was the patient's Timed Up & Go test unsteady or ? 12 seconds? No Advance Care Planning Patient was not able to provide a surrogate decision maker or written advance directives Measurements BP 116/62 Pulse 64 Temp (Src) 98 (Temporal) Resp 16 Ht 5' 4.6 (1.64m) Wt 145 lb (65.8kg) BMI 24.42 kg/(m^2). Vision Screening: Follows with optometry/ophthalmology Right: 20/50 Left: 20/ 40 Both: 20/40 Assessment/Plan Medicare annual wellness visit, subsequent (Z00.00) - Counseled on healthy diet and regular exercise - Fall avoidance information provided - Personalized prevention plan provided - Vaccines reviewed. Covid vaccine given. [facility] NoteHNO ID: [id number] Author: PRINCE CELESTE MD Service: ? Author Type: Physician Type: Progress Notes Filed: 11/12/2023 14:51 Note Text: Seda Menchaca is a 77 year old male here for a Medicare wellness visit. Medicare Health Risk Assessment General Health Good Exercise: Minutes/Day 10 min Exercise: Days/Week 2 days Alcohol: Daily Use Never Alcohol: Drinks/Day Patient does not drink Alcohol: 6 or more drinks Never Feel off balance Yes Concerns: Teeth/Dentures No Concerns: Sexual function Yes Troubled by feelings None of the above Frequency: Eating healthy diet Nearly every day ADLs requiring help Handling finances Safety precautions in home/vehicle Yes Smoke, vape, chews tobacco No Difficulty hearing No Difficulty seeing No Current Providers Specialists: I have reviewed specialist-related care of the patient in the medical record. Current care team: Patient Care Team: Prince Celeste MD as PCP - General Outside specialists seen: Dr. David Fox, cardiology, [facility]. Dr. Dale Singh, urology. Dr. Spencer Bailey, optometry. Dr Terrazas, [facility]. Dr. Karmen Delgado, [facility]. Dr. Karmen Diamond, nephrology. Dr. Michael Rivas, ophthalmology. Medical/Family history review Reviewed and updated problem list, medical/surgical/family/social history, medications, and allergies. Opioid use review Opioid Medications (last 90 days) No data to display Anxiety/Depression screening PHQ-2 Score: 0 (Lower risk for depression) ESME-2 Score: 0 (Lower risk for anxiety) Recommendation: no further intervention at this time Cognitive screening Mini Cog Score: 3 Cognitive screening reviewed and No further action needed (score 3-5). Functional Observation Was the patient's Timed Up AND Go test unsteady or ? 12 seconds? No Advance Care Planning Patient was not able to provide a surrogate decision maker or written advance directives Measurements BP 116/62 Pulse 64 Temp (Src) 98 (Temporal) Resp 16 Ht 5' 4.6 (1.64m) Wt 145 lb (65.8kg) BMI 24.42 kg/(m2). Vision Screening: Follows with optometry/ophthalmology Right: 20/50 Left: 20/ 40 Both: 20/40 Assessment/Plan Medicare annual wellness visit, subsequent (Z00.00) - Counseled on healthy diet and regular exercise - Fall avoidance information provided - Personalized prevention plan provided - Vaccines reviewed. Covid vaccine given.[facility]07-12-2024 Miscellaneous Notes* Telephone Encounter - Philomena Tatum RN - 11/02/2023 3:32 PM EDT Pt called in and was asking about medications changed. Let Pt know that Glipizide was discontinued.Gabapentin was decreased from three times a day to two times a day. Pt had Trazodone added on to take daily at bedtime. [facility] encounter[facility] Telephone encounter Note * Telephone Encounter - Philomena Tatum RN - 11/02/2023 3:32 PM EDT Pt called in and was asking about medications changed. Let Pt know that Glipizide was discontinued.Gabapentin was decreased from three times a day to two times a day. Pt had Trazodone added on to take daily at bedtime. [facility]07-11-2024 NoteHNO ID: [id number] Author: PRINCE CELESTE MD Service: ? Author Type: Physician Type: Progress Notes Filed: 11/01/2023 16:39 Note Text: This note was created using M:Metricsriter. Subjective Patient presents with: Low Blood Sugar Seda Menchaca is a 77 year old male who started experiencing acute malaise and found his glucose to be significantly low (42). He was instructed on hypoglycemia but continued to have recurring episodes. I advised him to stop glipizide which he did yesterday and his glucose was 128 this morning. His neuralgia was improving. He was only taking gabapentin twice a day. He was scheduled to follow up with ophthalmology in [place] tomorrow. Review of Systems Constitutional: Negative for fatigue. Eyes: Negative for pain and redness. Respiratory: Negative for shortness of breath. Gastrointestinal: Negative for diarrhea, nausea and vomiting. Neurological: Positive for numbness. 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 [id number] 3.5 MG/ML-10,000 UNIT/ML-0.1% EYE DROPS metFORMIN (GLUCOPHAGE) 1,000 mg tablet Take 1 tablet by mouth daily with breakfast. olopatadine (PATANOL) 0.1 % ophthalmic solution Use 1 Drop in both eyes two times a day as needed (allergies). atorvastatin (LIPITOR) 40 mg tablet Take 1 tablet by mouth daily at bedtime. For cholesterol. fexofenadine (SOWMYA ALLERGY) 180 mg tablet Take 1 tablet by mouth once daily. blood sugar diagnostic ([employer] ULTRA TEST) test strip Test blood sugar(s) 1 times daily. Dx:E11.9 Insulin: no amLODIPine (NORVASC) 10 mg tablet Take 1 tablet by mouth once daily. [facility] acetaminophen (TYLENOL) 500 mg tablet Take 500 mg by mouth every 8 hours as needed. diclofenac sodium (VOLTAREN) 1 % topical gel Apply 2 g to affected area three times daily as needed (wrist pain). Omeprazole Magnesium (PRILOSEC OTC) 20 mg tablet Take 1 tablet by mouth daily before breakfast. 1/2 hr before meal. nitroglycerin sublingual (NITROQUICK) 0.4 mg SL tablet Dissolve 0.4 mg under the tongue every 5 minutes as needed. metoprolol tartrate, short acting, (LOPRESSOR) 50 mg tablet Take 1 tablet by mouth twice daily. tamsulosin (FLOMAX) 0.4 mg Take 1 capsule by mouth daily at bedtime. Dr. Singh. THERAPEUTIC MULTIVITAMIN TAB Take one(1) tablet daily. gabapentin (NEURONTIN) 300 mg capsule Take 1 capsule by mouth two times a day for 90 days. traZODone (DESYREL) 100 mg tablet Take 1 tablet by mouth daily at bedtime. sildenafil (VIAGRA) 100 mg tablet Take 1 tablet by mouth once daily as needed (for ED.). No current facility-administered medications for this visit. Objective BP 112/66 (BP Site: Left Arm, BP Position: Sitting, BP Cuff Size: Large Adult) Pulse 64 Temp 36.7 ?C (98.1 ?F) (Temporal) Resp 16 Wt 63.5 kg (140 lb) BMI 24.03 kg/m? Physical Exam Constitutional: General: He is not in acute distress. Eyes: Extraocular Movements: Extraocular movements intact. Conjunctiva/sclera: Conjunctivae normal. Pulmonary: Effort: Pulmonary effort is normal. Skin: Findings: No erythema or rash. Neurological: General: No focal deficit present. Mental Status: He is alert. Assessment and Plan 1. Hypoglycemia - ICD9: 251.2, ICD10: E16.2 (primary diagnosis) - We discussed remedies. Expect improvement with discontinuation of GLIPIZIDE ER 2. 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 - GABAPENTIN 300 MG CAPSULE 3. Type 2 diabetes mellitus with stage 3a chronic kidney disease, without long-term current use of insulin ([facility]) - ICD9: 250.40, 585.3, ICD10: E11.22, N18.31 - Worsening control - See #1. 4. Insomnia, unspecified type - ICD9: 780.52, ICD10: G47.00 Controlled, refilled. - TRAZODONE 100 MG TABLET 5. 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 He gets this online. I stressed PRN and not daily use. - SILDENAFIL 100 MG TABLET Prince Celeste [facility]07-11-2024 History of Present illness Narrative* Prince Celeste MD - 11/01/2023 4:25 PM EDT This note was created using NoteWriter. Subjective Patient presents with: Low Blood Sugar Seda Menchaca is a 77 year old male who started experiencing acute malaise and found his glucose to be significantly low (42). He was instructed on hypoglycemia but continued to have recurring episodes. I advised him to stop glipizide which he did yesterday and his glucose was 128 this morning. His neuralgia was improving. He was only taking gabapentin twice a day. He was scheduled to follow up with ophthalmology in [place] tomorrow. Review of Systems Constitutional: Negative for fatigue. Eyes: Negative for pain and redness. Respiratory: Negative for shortness of breath. Gastrointestinal: Negative for diarrhea, nausea and vomiting. Neurological: Positive for numbness. 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 [id number]-XIKVOTLYF-[id number] 3.5 MG/ML-10,000 UNIT/ML-0.1% EYE DROPS metFORMIN (GLUCOPHAGE) 1,000 mg tablet Take 1 tablet by mouth daily with breakfast. olopatadine (PATANOL) 0.1 % ophthalmic solution Use 1 Drop in both eyes two times a day as needed (allergies). atorvastatin (LIPITOR) 40 mg tablet Take 1 tablet by mouth daily at bedtime. For cholesterol. fexofenadine (SOWMYA ALLERGY) 180 mg tablet Take 1 tablet by mouth once daily. blood sugar diagnostic (IkonopediaTOUCH ULTRA TEST) test strip Test blood sugar(s) 1 times daily. Dx:E11.9Insulin: no amLODIPine (NORVASC) 10 mg tablet Take 1 tablet by mouth once daily. [facility] acetaminophen (TYLENOL) 500 mg tablet Take 500 mg by mouth every 8 hours as needed. diclofenac sodium (VOLTAREN) 1 % topical gel Apply 2 g to affected area three times daily as needed(wrist pain). Omeprazole Magnesium (PRILOSEC OTC) 20 mg tablet Take 1 tablet by mouth daily before breakfast. 1/2hr before meal. nitroglycerin sublingual (NITROQUICK) 0.4 mg SL tablet Dissolve 0.4 mg under the tongue every 5 minutes as needed. metoprolol tartrate, short acting, (LOPRESSOR) 50 mg tablet Take 1 tablet by mouth twice daily. tamsulosin (FLOMAX) 0.4 mg Take 1 capsule by mouth daily at bedtime. Dr. Singh. THERAPEUTIC MULTIVITAMIN TAB Take one(1) tablet daily. gabapentin (NEURONTIN) 300 mg capsule Take 1 capsule by mouth two times a day for 90 days. traZODone (DESYREL) 100 mg tablet Take 1 tablet by mouth daily at bedtime. sildenafil (VIAGRA) 100 mg tablet Take 1 tablet by mouth once daily as needed (for ED.). No current facility-administered medications for this visit. Objective BP 112/66 (BP Site: Left Arm, BP Position: Sitting, BP Cuff Size: Large Adult) Pulse 64 Temp 36.7 C (98.1 F) (Temporal) Resp 16 Wt 63.5 kg (140 lb) BMI 24.03 kg/m Physical Exam Constitutional: General: He is not in acute distress. Eyes: Extraocular Movements: Extraocular movements intact. Conjunctiva/sclera: Conjunctivae normal. Pulmonary: Effort: Pulmonary effort is normal. Skin: Findings: No erythema or rash. Neurological: General: No focal deficit present. Mental Status: He is alert. Assessment and Plan 1. Hypoglycemia - ICD9: 251.2, ICD10: E16.2 (primary diagnosis) - We discussed remedies. Expect improvement with discontinuation of GLIPIZIDE ER 2. 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 - GABAPENTIN 300 MG CAPSULE 3. Type 2 diabetes mellitus with stage 3a chronic kidney disease, without long- term current use of insulin ([facility]) - ICD9: 250.40, 585.3, ICD10: E11.22, N18.31 - Worsening control - See #1. 4. Insomnia, unspecified type - ICD9: 780.52, ICD10: G47.00 Controlled, refilled. - TRAZODONE 100 MG TABLET 5. 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 He gets this online. I stressed PRN and not daily use. - SILDENAFIL 100 MG TABLET Prince Celeste MD documented [facility] encounterGal[facility] Telephone encounter Note * Telephone Encounter - Merna Austin LPN - 10/31/2023 9:50 AM EDT Spoke with pt and information listed below given. Pt verbalizes understanding. Merna Austin LPN [facility]07-10-2024 Miscellaneous Notes* Telephone Encounter - Merna Austin LPN - 10/31/2023 9:50 AM EDT Spoke with pt and information listed below given. Pt verbalizes understanding. Merna Austin LPN * Telephone Encounter - Gisselle Craven LPN - 10/31/2023 8:24 AM EDT Left message to call & speak to nurse. Gisselle Craven LPN * Telephone Encounter - Prince Celeste MD - 10/31/2023 12:55 AM EDT Stop GLIPIZIDE XL 2.5 mg once daily. We'll see him soon. * Telephone Encounter - Cindi Siu LPN - 10/30/2023 4:42 PM EDT Pt calls again today to report his blood sugar dropped to 42. Pt reports he got up at 10:30, ate a bowl of cereal (cheerios or rice krispies), took diabetic meds, went back to bed. Rechecked bs because he felt lightheaded and it was 42. Drank Pepsi and ate mini muffins and bs nhung to 132. Tried to explain to pt about the need to eat food with more protein and less carbs and sugar. Tried to schedule appt for tomorrow with pcp. Pt declined because domo was coming to his house. Pt scheduled with pcp for 10/31 @ 4:20. Pt advised to check sugars more often then twice a day untilappt. Call office with blood sugar readings. Cindi Siu LPN [facility] Telephone encounter Note * Telephone Encounter - Gisselle Craven LPN - 10/31/2023 8:24 AM EDT Left message to call & speak to nurse. Gisselle Craven LPN [facility]07-10-2024 Telephone encounter Note* Telephone Encounter - Prince Celeste MD - 10/31/2023 12:55 AM EDT Stop GLIPIZIDE XL 2.5 mg once daily. We'll see him soon. [facility]07-09-2024 Telephone encounter Note* Telephone Encounter - Cindi Siu LPN - 10/30/2023 4:42 PM EDT Pt calls again today to report his blood sugar dropped to 42. Pt reports he got up at 10:30, ate a bowl of cereal (cheerios or rice krispies), took diabetic meds, went back to bed. Rechecked bs because he felt lightheaded and it was 42. Drank Pepsi and ate mini muffins and bs nhung to 132. Tried to explain to pt about the need to eat food with more protein and less carbs and sugar. Tried to schedule appt for tomorrow with pcp. Pt declined because domo was coming to his house. Pt scheduled with pcp for 10/31 @ 4:20. Pt advised to check sugars more often then twice a day untilappt. Call office with blood sugar readings. Cindi Siu LPN [facility]07-08-2024 Telephone encounter Note* Telephone Encounter - Prince Celeste MD - 10/29/2023 4:18 PM EDT I agree. [facility]07-08-2024 Miscellaneous Notes* Telephone Encounter - Prince Celeste MD - 10/29/2023 4:18 PM EDT I agree. * Telephone Encounter - Harika Richardson LPN - 10/29/2023 3:45 PM EDT Patient calling said his medications have been messing up past few days. Patient said he woke up yesterday blood sugar was 108 and he ate his cereal at 1030 am and took his metformin and glipizide. Laid down for a nap and got up at 230 pm his blood sugar was 52, he felt light headed. He drank cup of pepsi and blood sugar was up in the 90's. He ate some jello, and sandwich. For supper he ate chicken and abigail abigail's and pizza. Today he got up blood sugar was 108, ate cereal and sat up an hour and took a nap again woke up at 200 pm and blood sugar was 62. He had not eaten lunch again. Explained topatient that he needs to eat breakfast, lunch and dinner so his blood sugars stay in good range, not skipping meals and having lows, be more consistent with three meals. He said he would work on doing that. Aware has appt 11/12/2023 with PCP. documented in this encounterGal[facility]07-[facility] Telephone encounter Note * Telephone Encounter - Harika Richardson LPN - 10/29/2023 3:45 PM EDT Patient calling said his medications have been messing up past few days. Patient said he woke up yesterday blood sugar was 108 and he ate his cereal at 1030 am and took his metformin and glipizide. Laid down for a nap and got up at 230 pm his blood sugar was 52, he felt light headed. He drank cup of pepsi and blood sugar was up in the 90's. He ate some jello, and sandwich. For supper he ate chicken and abigail abigail's and pizza. Today he got up blood sugar was 108, ate cereal and sat up an hour and took a nap again woke up at 200 pm and blood sugar was 62. He had not eaten lunch again. Explained topatient that he needs to eat breakfast, lunch and dinner so his blood sugars stay in good range, not skipping meals and having lows, be more consistent with three meals. He said he would work on doing that. Aware has appt 11/12/2023 with PCP. [facility]06-27-2024 NoteHNO ID: [id number] Author: SERGIO GRIDER MA Service: ? Author Type: Washtub Worker Type: Progress Notes Filed: 10/18/2023 13:33 Note Text: POPULATION HEALTH NAVIGATION OUTREACH Action/FYI Patient is on [facility] [employer] Workbench list for below and needs appointment to address: Shingrix Vaccine(1 of 2) RSV Vaccine(1 - 1-dose 60+ series) Covid-19 Vaccine(2022-24 season) Dilated Retinal Exam Advance Directive Discussion Behavioral Health Screening LDL Cholesterol Hemoglobin A1C (%) Date Value 05/10/2023 6.6 01/27/2021 6.8 Patient due for: Medicare Annual Wellness Visit Patient already scheduled for AWV. Updated notes for AWV to please address due care gaps and HCC gap closure. Reason for Outreach Care Gap/HCC or Scheduling Wellness Visits Care Gaps due: Medicare Annual Wellness Visit Patient Contacted: Unable or unnecessary to reach patient: HCC related Patient already scheduled Updated appointment notes Navigation Signature: Sergio Grider MA October 18, 2023 10:59 [facility]06-27-2024 History of Present illness Narrative* Sergio Grider MA - 10/18/2023 10:59 AM EDT POPULATION HEALTH NAVIGATION OUTREACH Action/FYI Patient is on [facility] CURRENT [employer] Workbench list for below and needs appointment to address: Shingrix Vaccine(1 of 2) RSV Vaccine(1 - 1-dose 60+ series) Covid-19 Vaccine( season) Dilated Retinal Exam Advance Directive Discussion Behavioral Health Screening LDL Cholesterol Hemoglobin A1C (%) Date Value 05/10/2023 6.6 01/27/2021 6.8 Patient due for: Medicare Annual Wellness Visit Patient already scheduled for AWV. Updated notes for AWV to please address due care gaps and HCC gap closure. Reason for Outreach Care Gap/HCC or Scheduling Wellness Visits Care Gaps due: Medicare Annual Wellness Visit Patient Contacted: Unable or unnecessary to reach patient: HCC related Patient already scheduled Updated appointment notes Navigation Signature: Sergio Grider MA October 18, 2023 10:59 AM documented in this encounterGal[facility]06-[facility]24 NotePatient Outreach (NETNAV) SEDA MENCHACA ([id number]) 1945 M Date Time Provider Department 10/18/23 SERGIO GRIDER During your visit today, we recorded the following information about you: Sergio Grider MA 10/18/2023 1:33 PM Signed POPULATION HEALTH NAVIGATION OUTREACH Action/FYI Patient is on [facility] [employer] Work[employer] list for below and needs appointment to address: Shingrix Vaccine(1 of 2) RSV Vaccine(1 - 1-dose 60+ series) Covid-19 Vaccine(2022-24 season) Dilated Retinal Exam Advance Directive Discussion Behavioral Health Screening LDL Cholesterol Hemoglobin A1C (%) Date Value 05/10/2023 6.6 01/27/2021 6.8 Patient due for: Medicare Annual Wellness Visit Patient already scheduled for AWV. Updated notes for AWV to please address due care gaps and HCC gap closure. Reason for Outreach Care Gap/HCC or Scheduling Wellness Visits Care Gaps due: Medicare Annual Wellness Visit Patient Contacted: Unable or unnecessary to reach patient: HCC related Patient already scheduled Updated appointment notes Navigation Signature: Sergio Grider MA October 18, 2023 10:59 AM Allergies As of Date: 10/18/2023 Noted Allergy Reaction KEFLEX (CEPHALEXIN) 08/09/2007 2 - Rash Comments: Rash and itching.Pt told by to discontinue Keflex immediately. OFLOXACIN 12/12/2013 4 - Hives Comments: ofloxacin ear drops PENICILLINS 12/06/2004 2 - Rash Date Reviewed: 09/17/2023 Reviewed by: Ruth Barrera MA - Fully Assessed Reason for Visit: Population Health Navigation Outreach [3910] Cmt: [facility] [facility] [employer] workbench - AWV, HCC gap closure - [place] [facility] Prescriptions as of 10/18/2023 - DULoxetine (CYMBALTA) 20 mg capsule Take 1 capsule by mouth once daily. - gabapentin (NEURONTIN) 300 mg capsule Take 1 capsule by mouth three times a day for 90 days. - [id number]-[id number] 3.5 MG/ML-10,000 UNIT/ML-0.1% EYE DROPS - metFORMIN (GLUCOPHAGE) 1,000 mg tablet Take 1 tablet by mouth daily with breakfast. - olopatadine (PATANOL) 0.1 % ophthalmic solution Use 1 Drop in both eyes two times a day as needed (allergies). - atorvastatin (LIPITOR) 40 mg tablet Take 1 tablet by mouth daily at bedtime. For cholesterol. - fexofenadine (SOWMYA ALLERGY) 180 mg tablet Take 1 tablet by mouth once daily. - blood sugar diagnostic ([place] ULTRA TEST) test strip Test blood sugar(s) 1 times daily. Dx:E11.9 Insulin: no - traZODone (DESYREL) 100 mg tablet Take 1 tablet by mouth daily at bedtime. - glipiZIDE (GLUCOTROL XL) 2.5 mg 24 hr tablet Take 1 tablet by mouth every morning. - sildenafil (VIAGRA) 100 mg tablet Take 1 tablet by mouth once daily as needed (for ED.). - amLODIPine (NORVASC) 10 mg tablet Take 1 tablet by mouth once daily. Per [facility] - acetaminophen (TYLENOL) 500 mg tablet Take 500 mg by mouth every 8 hours as needed. - diclofenac sodium (VOLTAREN) 1 % topical gel Apply 2 g to affected area three times daily as needed (wrist pain). - Omeprazole Magnesium (PRILOSEC OTC) 20 mg tablet Take 1 tablet by mouth daily before breakfast. 1/2 hr before meal. - nitroglycerin sublingual (NITROQUICK) 0.4 mg SL tablet Dissolve 0.4 mg under the tongue every 5 minutes as needed. - metoprolol tartrate, short acting, (LOPRESSOR) 50 mg tablet Take 1 tablet by mouth twice daily. - tamsulosin (FLOMAX) 0.4 mg Take 1 capsule by mouth daily at bedtime. Dr. Singh. - THERAPEUTIC MULTIVITAMIN TAB Take one(1) tablet daily. 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] 08/29/2007 03/13/2014 Disorders of bursae and tendons in shoulder reg*05/26/2008 03/06/2013 IMPOTENCE, ORGANIC ORIGN [N52.9] 05/26/2008 Coronary atherosclerosis [I25.10] 07/08/2008 Overweight(278.02) [E66.3] 07/15/2008 03/13/2014 Anemia, unspecified [D64.9] 07/20/2008 03/06/2013 GERD (gastroesophageal reflux disease) [K21.9] 02/17/2009 Bladder Cancer [C67.9] 05/20/2009 Osteoarthritis [M19.90] 05/20/2009 Dysuria [R30.0] 09/04/2012 03/06/2013 Right inguinal hernia [K40.90] 12/25/2012 03/06/2013 Lumbago with sciatica, unspecified side [M54.40]03/16/2015 CKD (chronic kidney disease) stage 3, GFR 30-59*06/28/2015 11/07/2021 Acute bilateral low back pain without sciatica *12/01/2015 12/12/2016 Cervicalgia of hsojomrc-rgathdb-xrpcw region [M*06/13/2018 Squamous cell cancer of scalp and skin of neck *06/12/2019 Arthritis of hand [M19.049] 01/21/2020 Hypertensive kidney disease with stage 3 chroni*11/03/2021 Insomnia [G47.00] 11/08/2022 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06-13-2024 Telephone encounter Note* Telephone Encounter - Christy Escobar LPN - 10/04/2023 12:44 PM EDT PATIENT phoned in again stating that he forgot to tell the other nurse about the special eye glasses that gave him to drive. Patient again instructed on the recommendations that gave and will be seen next month-October. Please review and advise Christy Escobar LPN [facility] Work Phone: [phone] Miscellaneous Notes* Telephone Encounter - Christy Escobar LPN - 10/04/2023 12:44 PM EDT PATIENT phoned in again stating that he forgot to tell the other nurse about the special eye glasses that gave him to drive. Patient again instructed on the recommendations that gave and will be seen next month-October. Please review and advise Christy Escobar LPN * Telephone Encounter - Natalie Mauricio RN - 10/04/2023 11:42 AM EDT Patient notified of provider's instructions. Patient verbalizes understanding. Patient asking if hecan drive now? Patient states that he is going to drive. Natalie Mauricio RN * Telephone Encounter - Philomena Tatum RN - 10/04/2023 10:17 AM EDT Called and left a voicemail for the Patient to call back and ask for a nurse to receive the providers message. Philomena Tatum RN * Telephone Encounter - Prince Celeste MD - 10/03/2023 10:12 PM EDT 1) Continue duloxetine for now. 2) Decrease gabapentin to 300 mg twice a day for 7 days, then reduce to 300 mg at bedtime and stay on that dose until his follow up next month. * Telephone Encounter - Philomena Tatum RN - 10/03/2023 11:05 AM EDT Pt called and is notified of providers message. Pt voices understanding. Let him know Dr Celeste is back in on Sunday10/08/23. Philomena Tatum RN * Telephone Encounter - Juanis Hawthorne APRN.JAYY - 10/03/2023 10:27 AM EDT This will need to wait until Dr. Celeste returns to the office Juanis Hawthorne APRN.TEXTILE PIN WORKER * Telephone Encounter - Philomena Tatum RN - 10/03/2023 10:15 AM EDT Pt called in and reports he went to the eye doctor and he was told his eyes were good enough he would be able to start driving again. He states the provider told him he would need to get off a could medications in order to drive though. He said he take the Gabapentin TID, he was asking if he could drop down to daily. Then the Duloxetine he was asking if he could come off of, I said maybe the provider would be ok with him taking that at and he would still be able to drive. Please call and advise. [facility] Telephone encounter Note * Telephone Encounter - Natalie Mauricio RN - 10/04/2023 11:42 AM EDT Patient notified of provider's instructions. Patient verbalizes understanding. Patient asking if hecan drive now? Patient states that he is going to drive. Natalie Mauricio RN [facility]06-13-2024 Telephone encounter Note* Telephone Encounter - Philomena Tatum RN - 10/04/2023 10:17 AM EDT Called and left a voicemail for the Patient to call back and ask for a nurse to receive the providers message. Philomena Tatum RN [facility]06-12-2024 Telephone encounter Note* Telephone Encounter - Prince Celeste MD - 10/03/2023 10:12 PM EDT 1) Continue duloxetine for now. 2) Decrease gabapentin to 300 mg twice a day for 7 days, then reduce to 300 mg at bedtime and stay on that dose until his follow up next month. [facility]06-12-2024 Telephone encounter Note* Telephone Encounter - Philomena Tatum RN - 10/03/2023 11:05 AM EDT Pt called and is notified of providers message. Pt voices understanding. Let him know Dr Celeste is back in on Sunday10/08/23. Philomena Tatum RN [facility]06-12-2024 Telephone encounter Note* Telephone Encounter - Juanis Hawthorne APRN.JAYY - 10/03/2023 10:27 AM EDT This will need to wait until Dr. Celeste returns to the office Juanis Hawthorne APRN.TEXTILE PIN WORKER [facility]06-12-2024 Telephone encounter Note* Telephone Encounter - Philomena Tatum RN - 10/03/2023 10:15 AM EDT Pt called in and reports he went to the eye doctor and he was told his eyes were good enough he would be able to start driving again. He states the provider told him he would need to get off a could medications in order to drive though. He said he take the Gabapentin TID, he was asking if he could drop down to daily. Then the Duloxetine he was asking if he could come off of, I said maybe the provider would be ok with him taking that at and he would still be able to drive. Please call and advise. [facility]06-10-2024 NoteHNO ID: [id number] Author: JADE MALAVE MA Service: ? Author Type: Washtub Worker Type: Progress Notes Filed: 10/01/2023 09:19 Note Text: POPULATION HEALTH NAVIGATION OUTREACH Action/October 01, 2023 Patient is on [facility] Medication Adherence list for the following medications: ATORVASTATIN 40MG TAB Sig: take 1 tablet by mouth at bedtime Dispensed: 06/07/2023 12:00 AM Unit strength: 40 mg Unit form: tablet Days supply: 90 Quantity: 90 Each Refills remainin Dispense due date 09.05.2023 Unable to access [employer] at this time to review Medication dispense history. Medication dispense reconcile in [facility] is showing refill has not been dispensed. [facility] [address] [place] [id number] JOO with PCP was July 25, 2023 Outcome: Spoke with patients Rimma, patient is sleeping. She advises that patient is taking medication daily that she is aware of. She did check is medication bottle. He has twenty three pills left in bottle. She will have patient contact [facility] end of next week for his refill. Reason for Outreach Med Adherence Patient Contacted: Spoke to patient/parent/or legal guardian Patient identified by name and date of : Yes Med Adherence actions taken: Patient Med Adherence responses: Patient would like to take care of managing medication(s) on their own Navigation Signature: Jade Malave MA September 30[facility]06-10[facility] History of Present illness Narrative* Jade Malave MA - 10/01/2023 7:44 AM EDT POPULATION HEALTH NAVIGATION OUTREACH Action/October 01, 2023 [facility] for the following medications: ATORVASTATIN 40MG TAB Sig: take 1 tablet by mouth at bedtime Dispensed: 06/07/2023 12:00 AM Unit strength: 40 mg Unit form: tablet Days supply: 90 Quantity: 90 Each Refills remainin Dispense due date 09.05.2023 Unable to access [employer] portal at this time to review Medication dispense history. Medication dispense reconcile in [facility] is showing refill has not been dispensed. [facility] [address] [place] [address] JOO with PCP was July 25, 2023 Outcome: Spoke with patients Rimma, patient is sleeping. She advises that patient is taking medication daily that she is aware of. She did check is medication bottle. He has twenty three pills left in bottle. She will have patient contact [facility] end of next week for his refill. Reason for Outreach Med Adherence Patient Contacted: Spoke to patient/parent/or legal guardian Patient identified by name and date of : Yes Med Adherence actions taken: Patient Med Adherence responses: Patient would like to take care of managing medication(s) on their own Navigation Signature: Jade Malave MA October 01, 2023 documented in [facility] encounterGal[facility] NotePatient Outreach (DEIDRENAV) SEDA MENCHACA ([id number]) 1945 M Date Time Provider Department 10/01/23 JADE MALAVE During your visit today, we recorded the following information about you: Jade Malave MA 10/01/2023 9:19 AM Signed POPULATION HEALTH NAVIGATION OUTREACH Action/I October 01, 2023 Patient is on [employer] Medication Adherence list for the following medications: ATORVASTATIN 40MG TAB Sig: take 1 tablet by mouth at bedtime Dispensed: 06/07/2023 12:00 AM Unit strength: 40 mg Unit form: tablet Days supply: 90 Quantity: 90 Each Refills remainin Dispense due date 09.05.2023 Unable to access [employer] portal at this time to review Medication dispense history. Medication dispense reconcile in [facility] is showing refill has not been dispensed. [facility] [address] [place], [place] [id number] JOO with PCP was July 25, 2023 Outcome: Spoke with patients Rimma, patient is sleeping. She advises that patient is taking medication daily that she is aware of. She did check is medication bottle. He has twenty three pills left in bottle. She will have patient contact [facility] end of next week for his refill. Reason for Outreach Med Adherence Patient Contacted: Spoke to patient/parent/or legal guardian Patient identified by name and date of : Yes Med Adherence actions taken: Patient Med Adherence responses: Patient would like to take care of managing medication(s) on their own Navigation Signature: Jade Malave MA October 01, 2023 Allergies As of Date: 10/01/2023 Noted Allergy Reaction KEFLEX (CEPHALEXIN) 08/09/2007 2 - Rash Comments: Rash and itching.Pt told by to discontinue Keflex immediately. OFLOXACIN 12/12/2013 4 - Hives Comments: ofloxacin ear drops PENICILLINS 12/06/2004 2 - Rash Date Reviewed: 09/17/2023 Reviewed by: Ruth Barrera MA - Fully Assessed Reason for Visit: Population Health Navigation Outreach [3910] Cmt: [place] Med Adherence Prescriptions as of 10/01/2023 - DULoxetine (CYMBALTA) 20 mg capsule Take 1 capsule by mouth once daily. - gabapentin (NEURONTIN) 300 mg capsule Take 1 capsule by mouth three times a day for 90 days. - UHSBLSBO-SZVDLCVDJ-[id number] 3.5 MG/ML-10,000 UNIT/ML-0.1% EYE DROPS - metFORMIN (GLUCOPHAGE) 1,000 mg tablet Take 1 tablet by mouth daily with breakfast. - olopatadine (PATANOL) 0.1 % ophthalmic solution Use 1 Drop in both eyes two times a day as needed (allergies). - atorvastatin (LIPITOR) 40 mg tablet Take 1 tablet by mouth daily at bedtime. For cholesterol. - fexofenadine (SOWMYA ALLERGY) 180 mg tablet Take 1 tablet by mouth once daily. - blood sugar diagnostic ([place] ULTRA TEST) test strip Test blood sugar(s) 1 times daily. Dx:E11.9 Insulin: no - traZODone (DESYREL) 100 mg tablet Take 1 tablet by mouth daily at bedtime. - glipiZIDE (GLUCOTROL XL) 2.5 mg 24 hr tablet Take 1 tablet by mouth every morning. - sildenafil (VIAGRA) 100 mg tablet Take 1 tablet by mouth once daily as needed (for ED.). - amLODIPine (NORVASC) 10 mg tablet Take 1 tablet by mouth once daily. Per [facility] - acetaminophen (TYLENOL) 500 mg tablet Take 500 mg by mouth every 8 hours as needed. - diclofenac sodium (VOLTAREN) 1 % topical gel Apply 2 g to affected area three times daily as needed (wrist pain). - Omeprazole Magnesium (PRILOSEC OTC) 20 mg tablet Take 1 tablet by mouth daily before breakfast. 1/2 hr before meal. - nitroglycerin sublingual (NITROQUICK) 0.4 mg SL tablet Dissolve 0.4 mg under the tongue every 5 minutes as needed. - metoprolol tartrate, short acting, (LOPRESSOR) 50 mg tablet Take 1 tablet by mouth twice daily. - tamsulosin (FLOMAX) 0.4 mg Take 1 capsule by mouth daily at bedtime. Dr. Singh. - THERAPEUTIC MULTIVITAMIN TAB Take one(1) tablet daily. 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] 08/29/2007 03/13/2014 Disorders of bursae and tendons in shoulder reg*05/26/2008 03/06/2013 IMPOTENCE, ORGANIC ORIGN [N52.9] 05/26/2008 Coronary atherosclerosis [I25.10] 07/08/2008 Overweight(278.02) [E66.3] 07/15/2008 03/13/2014 Anemia, unspecified [D64.9] 07/20/2008 03/06/2013 GERD (gastroesophageal reflux disease) [K21.9] 02/17/2009 Bladder Cancer [C67.9] 05/20/2009 Osteoarthritis [M19.90] 05/20/2009 Dysuria [R30.0] 09/04/2012 03/06/2013 Right inguinal hernia [K40.90] 12/25/2012 03/06/2013 Lumbago with sciatica, unspecified side [M54.40]03/16/2015 CKD (chronic kidney disease) stage 3, GFR 30-59*06/28/2015 11/07/2021 Acute bilateral low back pain without sciatica *12/01/2015 12/12/2016 Cervicalgia of wxmqbvhf-vgblqjx-egzfr region [M*06/13/2018 (more content not included)...[facility]05-29-2024 Miscellaneous Notes* Telephone Encounter - [place] Mirian Short - 09/19/2023 8:49 AM EDT Patient has been identified by name and date of : yes Spouse phones for refill(s): Requested Prescriptions Pending Prescriptions Disp Refills DULoxetine (CYMBALTA) 20 mg capsule 30 capsule 2 Sig: Take 1 capsule by mouth once daily. Date of last office visit in primary care: 07/25/2023 Date of next office visit in primary care: 11/12/2023 Please advise. Thank you. Mirian Mari Pss. documented in this encounterGalion Hospital05-29-[facility]24 Telephone encounter Note * Telephone Encounter - [place] Mirian Short - 09/19/2023 8:49 AM EDT Patient has been identified by name and date of : yes Spouse phones for refill(s): Requested Prescriptions Pending Prescriptions Disp Refills DULoxetine (CYMBALTA) 20 mg capsule 30 capsule 2 Sig: Take 1 capsule by mouth once daily. Date of last office visit in primary care: 07/25/2023 Date of next office visit in primary care: 11/12/2023 Please advise. Thank you. Mirian Mari Pss. [facility]05-28-2024 Telephone encounter Note* Telephone Encounter - Colton Baer MA - 09/18/2023 11:42 AM EDT Patient returned call, notified of results, verbalized understanding of instructions given. Colton Baer MA [facility]05-28-2024 Miscellaneous Notes* Telephone Encounter - Colton Baer MA - 09/18/2023 11:42 AM EDT Patient returned call, notified of results, verbalized understanding of instructions given. Colton Baer MA * Telephone Encounter - Nichol Gloria PA - 09/18/2023 11:18 AM EDT I called patient to discuss results. He did not answer, left a voicemail. If patient returns call, please let him know that XR of the toe did not reveal fracture. Follow-up with podiatry as discussedat visit. documented in [facility] Telephone encounter Note * Telephone Encounter - Nichol Gloria PA - 09/18/2023 11:18 AM EDT I called patient to discuss results. He did not answer, left a voicemail. If patient returns call, please let him know that XR of the toe did not reveal fracture. Follow-up with podiatry as discussedat visit. [facility] Work Phone: 1(211) 504-450205-28-2024 History of Present illness Narrative* Valeria Borden RT(R) - 09/18/2023 11:10 AM EDT Radiology Service Progress Note PATIENT NAME: Seda Menchaca DATE OF SERVICE: September 18, 2023 TIME: 11:01 AM PATIENT IDENTITY VERIFICATION COMPLETED USING TWO (2) IDENTIFIERS: Name and Date of confirmedby patient verbally. FALL SCREENING: Has the patient had 2 falls in the last year or 1 fall with injury or currently using an Ambulatory Assistive Device (Walker, Cane, Wheelchair, Crutches, etc.)? No PATIENT GENDER DATA: Male PATIENT RELEVANT IMPLANT DATA REVIEWED: Not Applicable PATIENT PRESENTS WITH AN IMPLANTABLE OR ATTACHED PHYSICAL BIOCHEMIST: No RADIOLOGY DEPARTMENT: General X-ray: Exam(s) Completed: Lower Extremity X- Ray(s): Toes, Right PERIPHERAL IV DATA: Not applicable SIGNED BY: RT Angy(Douglas) September 18, 2023 11:01 AM documented in this encounterGalion [facility]24 NoteHNO ID: [id number] Author: VALERIA BORDEN RT (R) Service: Radiology Author Type: Technologist Type: Progress Notes Filed: 09/18/2023 11:10 Note Text: Radiology Service Progress Note PATIENT NAME: Seda Menchaca DATE OF SERVICE: September 18, 2023 TIME: 11:01 AM PATIENT IDENTITY VERIFICATION COMPLETED USING TWO (2) IDENTIFIERS: Name and Date of confirmed by patient verbally. FALL SCREENING: Has the patient had 2 falls in the last year or 1 fall with injury or currently using an Ambulatory Assistive Device (Walker, Cane, Wheelchair, Crutches, etc.)? No PATIENT GENDER DATA: Male PATIENT RELEVANT IMPLANT DATA REVIEWED: Not Applicable PATIENT PRESENTS WITH AN IMPLANTABLE OR ATTACHED PHYSICAL BIOCHEMIST: No RADIOLOGY DEPARTMENT: General X-ray: Exam(s) Completed: Lower Extremity X-Ray(s): Toes, Right PERIPHERAL IV DATA: Not applicable SIGNED BY: RT Angy(Douglas) September 18, 2023 11:01 [facility]05-27-2024 NoteHNO ID: [id number] Author: SHAINA DALY APRN.TEXTILE PIN WORKER Service: ? Author Type: Nurse Practitioner Type: Progress Notes Filed: 09/17/2023 15:27 Note Text: This note was created using NoteWriter. Subjective Seda Menchaca is a 77 year old male. 77 year old male with PMH HTN, CKD, GERD presents for toe complaints. Right great toe Acute onset one week ago Endorses that he dropped a wrench onto his great toe +black and blue toe nail +pain States that he was cutting his nails this morning States blood shot out of his great toe with clipping Bleeding has since resolved Sent in by nurse triage Hx: DM Denies prior history of foot fracture Dr. Tang is his budget manager The history is provided by the patient. No bus steward was used. Pain (foot) Pain location: right great toe. This is a new problem. The current episode started 1 to 4 weeks ago. There has been a history of trauma. The problem occurs constantly. The problem has been unchanged. The quality of the pain is described as sharp and aching. The pain is at a severity of 6/10. The pain is moderate. Pertinent negatives include no fever, inability to bear weight, itching, joint locking, joint swelling, limited range of motion, numbness, stiffness or tingling. The symptoms are aggravated by activity. He has tried nothing for the symptoms. The treatment provided no relief. Family history does not include gout or rheumatoid arthritis. His past medical history is significant for diabetes. There is no history of gout, osteoarthritis or rheumatoid arthritis. 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 Singh. CORONARY ATHEROSCLER UNSPEC VESSEL 07/08/2008 Dr. Markham, [facility]. 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 Terrazas, [facility]. Type II or unspecified type diabetes mellitus without mention of complication, not stated as uncontrolled 12/06/2004 Unspecified essential hypertension 12/06/2004 PAST SURGICAL HISTORY Procedure Laterality Date COLONOSCOPY FLX DX W/COLLJ SPEC WHEN PFRMD 03/25/2004 Colonoscopy COLONOSCOPY FLX DX W/COLLJ SPEC WHEN PFRMD 04/07/2016 normal 10 year follow up CORONARY ARTERY BYP W/VEIN AND ARTERY GRAFT 4 VEIN CABG, 5 vessel CYSTO W/REMOVAL OF TUMORS SMALL 04/21/2009 Excision bladder tumor CYSTOURETHROSCOPY Cystoscopy annually last 2016 DIABETES with stage 3 kidney disease ESOPHAGOGASTRODUODENOSCOPY TRANSORAL DIAGNOSTIC 03/25/2004 EGD LEFT HEART CATH 05/12/2014 Left ventriculogram, coronary arteriography, SVG angiography, SALLY arteriography LEFT HEART CATH,PERCUTANEOUS 06/2009 Cardiac cath, L heart PAST SURGICAL HISTORY OF 11/21/2005 excision lymph node right side neck PAST SURGICAL HISTORY OF 1967 Left forearm ORIF fracture. REVISE MEDIAN N/CARPAL TUNNEL SURG Right 06/09/2021 Right carpal tunnel release RPR 1ST INGUN HRNA AGE 5 YRS/> REDUCIBLE 2000 Hernia repair, inguinal RPR 1ST INGUN HRNA AGE 5 YRS/> REDUCIBLE 12/17/2012 Hernia repair, inguinal SKIN BIOPSY HX TONSILLECTOMY AND ADENOIDECTOMY ALLERGIES Keflex [Cephalexin], Ofloxacin, and Penicillins MEDICATIONS DULoxetine (CYMBALTA) 20 mg capsule Take 1 capsule by mouth once daily. gabapentin (NEURONTIN) 300 mg capsule Take 1 capsule by mouth three times a day for 90 days. [id number]-[id number] 3.5 MG/ML-10,000 UNIT/ML-0.1% EYE DROPS metFORMIN (GLUCOPHAGE) 1,000 mg tablet Take 1 tablet by mouth daily with breakfast. olopatadine (PATANOL) 0.1 % ophthalmic solution Use 1 Drop in both eyes two times a day as needed (allergies). atorvastatin (LIPITOR) 40 mg tablet Take 1 tablet by mouth daily at bedtime. For cholesterol. fexofenadine (SOWMYA ALLERGY) 180 mg tablet Take 1 tablet by mouth once daily. blood sugar diagnostic (IkonopediaTOUCH ULTRA TEST) test strip Test blood sugar(s) 1 times daily. Dx:E11.9 Insulin: no traZODone (DESYREL) 100 mg tablet Take 1 tablet by mouth daily at bedtime. glipiZIDE (GLUCOTROL XL) 2.5 mg 24 hr tablet Take 1 tablet by mouth every morning. sildenafil (VIAGRA) 100 mg tablet Take 1 tablet by mouth once daily as needed (for ED.). amLODIPine (NORVASC) 10 mg tablet Take 1 tablet by mouth once daily. Per (more content not included)...[facility]05-27-2024 History of Present illness Narrative* Shaina Daly APRN.TEXTILE PIN WORKER - 09/17/2023 3:22 PM EDT This note was created using NoteWriter. Subjective Seda Menchaca is a 77 year old male. 77 year old male with PMH HTN, CKD, GERD presents for toe complaints. Right great toe Acute onset one week ago Endorses that he dropped a wrench onto his great toe +black and blue toe nail +pain States that he was cutting his nails this morning States blood shot out of his great toe with clipping Bleeding has since resolved Sent in by nurse triage Hx: DM Denies prior history of foot fracture Dr. Tang is his budget manager The history is provided by the patient. No bus steward was used. Pain (foot) Pain location: right great toe. This is a new problem. The current episode started 1 to 4 weeks ago. There has been a history of trauma. The problem occurs constantly. The problem has been unchanged.The quality of the pain is described as sharp and aching. The pain is at a severity of 6/10. The pain is moderate. Pertinent negatives include no fever, inability to bear weight, itching, joint locking, joint swelling, limited range of motion, numbness, stiffness or tingling. The symptoms are aggravated by activity. He has tried nothing for the symptoms. The treatment provided no relief. Family history does not include gout or rheumatoid arthritis. His past medical history is significant for diabetes. There is no history of gout, osteoarthritis or rheumatoid arthritis. 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 Singh. CORONARY ATHEROSCLER UNSPEC VESSEL 07/08/2008 Dr. Markham, [facility]. 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 Terrazas, [facility]. Type II or unspecified type diabetes mellitus without mention of complication, not stated as uncontrolled 12/06/2004 Unspecified essential hypertension 12/06/2004 PAST SURGICAL HISTORY Procedure Laterality Date COLONOSCOPY FLX DX W/COLLJ SPEC WHEN PFRMD 03/25/2004 Colonoscopy COLONOSCOPY FLX DX W/COLLJ SPEC WHEN PFRMD 04/07/2016 normal 10 year follow up CORONARY ARTERY BYP W/VEIN & ARTERY GRAFT 4 VEIN CABG, 5 vessel CYSTO W/REMOVAL OF TUMORS SMALL 04/21/2009 Excision bladder tumor CYSTOURETHROSCOPY Cystoscopy annually last 2016 DIABETES with stage 3 kidney disease ESOPHAGOGASTRODUODENOSCOPY TRANSORAL DIAGNOSTIC 03/25/2004 EGD LEFT HEART CATH 05/12/2014 Left ventriculogram, coronary arteriography, SVG angiography, SALLY arteriography LEFT HEART CATH,PERCUTANEOUS 06/2009 Cardiac cath, L heart PAST SURGICAL HISTORY OF 11/21/2005 excision lymph node right side neck PAST SURGICAL HISTORY OF 1968 Left forearm ORIF fracture. REVISE MEDIAN N/CARPAL TUNNEL SURG Right 06/09/2021 Right carpal tunnel release RPR 1ST INGUN HRNA AGE 5 YRS/> REDUCIBLE 2000 Hernia repair, inguinal RPR 1ST INGUN HRNA AGE 5 YRS/> REDUCIBLE 12/17/2012 Hernia repair, inguinal SKIN BIOPSY HX TONSILLECTOMY & ADENOIDECTOMY <AGE 12 ALLERGIES Keflex [Cephalexin], Ofloxacin, and Penicillins MEDICATIONS DULoxetine (CYMBALTA) 20 mg capsule Take 1 capsule by mouth once daily. gabapentin (NEURONTIN) 300 mg capsule Take 1 capsule by mouth three times a day for 90 days. [id number] 3.5 MG/ML-10,000 UNIT/ML-0.1% EYE DROPS metFORMIN (GLUCOPHAGE) 1,000 mg tablet Take 1 tablet by mouth daily with breakfast. olopatadine (PATANOL) 0.1 % ophthalmic solution Use 1 Drop in both eyes two times a day as needed (allergies). atorvastatin (LIPITOR) 40 mg tablet Take 1 tablet by mouth daily at bedtime. For cholesterol. fexofenadine (SOWMYA ALLERGY) 180 mg tablet Take 1 tablet by mouth once daily. blood sugar diagnostic ([employer] ULTRA TEST) test strip Test blood sugar(s) 1 times daily. Dx:E11.9Insulin: no traZODone (DESYREL) 100 mg tablet Take 1 tablet by mouth daily at bedtime. glipiZIDE (GLUCOTROL XL) 2.5 mg 24 hr tablet Take 1 tablet by mouth every morning. sildenafil (VIAGRA) 100 mg tablet Take 1 tablet by mouth once daily as needed (for ED.). amLODIPine (NORVASC) 10 mg tablet Take 1 tablet by mouth once daily. [facility] acetaminophen (TYLENOL) 500 mg tablet Take 500 mg by mouth every 8 hours as needed. diclofenac sodium (VOLTAREN) 1 % topical gel Apply 2 g to affected area three times daily as needed(wrist pain). Omeprazole Magnesium (PRILOSEC OTC) 20 mg tablet Take 1 tablet by mouth daily before breakfast. 1/2hr before meal. nitroglycerin sublingual (NITROQUICK) 0.4 mg SL tablet Dissolve 0.4 mg under the tongue every 5 minutes as needed. metoprolol tartrate, short acting, (LOPRESSOR) 50 mg tablet Take 1 tablet by mouth twice daily. tamsulosin (FLOMAX) 0.4 mg Take 1 capsule by mouth daily at bedtime. Dr. Singh. THERAPEUTIC MULTIVITAMIN TAB Take one(1) tablet daily. FAMILY HISTORY Problem Relation Age of Onset Coronary Artery Disease Mother Diabetes Mother Heart Father Diabetes Father Diabetes Sister Cataract Sister Stroke Sister Blindness Sister Cancer Brother esophageal Coronary Artery Disease Brother Diabetes Brother Social History Tobacco Use Smoking status: Former Packs/day: 1.00 Years: 20.00 Additional pack years: 0.00 Total pack years: 20.00 Types: Cigarettes Start date: 04/23/1959 Quit date: 04/23/1979 Years since quittin.4 Smokeless tobacco: Never Vaping Use Vaping Use: Never used Substance Use Topics Alcohol use: No Drug use: No Review of Systems Constitutional: Negative for fever. Eyes: Negative for pain, discharge and itching. Respiratory: Negative for apnea, cough, choking and chest tightness. Cardiovascular: Negative for chest pain, palpitations and leg swelling. Musculoskeletal: Negative for arthralgias, back pain, gout and stiffness. Right great toe pain Skin: Negative for itching. Allergic/Immunologic: Negative for environmental allergies, food allergies and immunocompromised state. Neurological: Negative for dizziness, tingling and numbness. Hematological: Negative for adenopathy. Does not bruise/bleed easily. Psychiatric/Behavioral: Negative for agitation and behavioral problems. Objective BP 120/60 Pulse 70 Temp 36.6 C (97.8 F) Resp 16 Wt 64.6 kg (142 lb 6.7 oz) SpO2 97% BMI24.45 kg/m Physical Exam Vitals and nursing note reviewed. Constitutional: General: He is not in acute distress. Appearance: Normal appearance. He is not ill-appearing, toxic-appearing or diaphoretic. HENT: Head: Normocephalic and atraumatic. Right Ear: External ear normal. Left Ear: External ear normal. Nose: Nose normal. No congestion or rhinorrhea. Mouth/Throat: Mouth: Mucous membranes are moist. Pharynx: Oropharynx is clear. No oropharyngeal exudate or posterior oropharyngeal erythema. Eyes: General: Right eye: No discharge. Left eye: No discharge. Extraocular Movements: Extraocular movements intact. Conjunctiva/sclera: Conjunctivae normal. Pupils: Pupils are equal, round, and reactive to light. Cardiovascular: Rate and Rhythm: Normal rate and regular rhythm. Pulses: Normal pulses. Heart sounds: Normal heart sounds. No murmur heard. No friction rub. No gallop. Pulmonary: Effort: Pulmonary effort is normal. No respiratory distress. Breath sounds: Normal breath sounds. No stridor. No wheezing, rhonchi or rales. Chest: Chest wall: No tenderness. Abdominal: General: Abdomen is flat. There is no distension. Palpations: Abdomen is soft. There is no mass. Tenderness: There is no abdominal tenderness. There is no guarding or rebound. Hernia: No hernia is present. Musculoskeletal: General: Tenderness and signs of injury present. No swelling or deformity. Normal range of motion. Cervical back: Normal range of motion and neck supple. No rigidity or tenderness. Right lower leg: No edema. Left lower leg: No edema. Comments: Right great toe with ecchymosis noted to nail bed Nail loose No active bleeding No obvious deformity +neuro +sensation Lymphadenopathy: Cervical: No cervical adenopathy. Skin: General: Skin is warm and dry. Capillary Refill: Capillary refill takes less than 2 seconds. Coloration: Skin is not jaundiced or pale. Findings: No bruising, lesion or rash. Neurological: General: No focal deficit present. Mental Status: He is alert and oriented to person, place, and time. Cranial Nerves: No cranial nerve deficit. Sensory: No sensory deficit. Motor: No weakness. Coordination: Coordination normal. Gait: Gait normal. Deep Tendon Reflexes: Reflexes normal. Psychiatric: Mood and Affect: Mood normal. Behavior: Behavior normal. Thought Content: Thought content normal. Assessment and Plan ASSESSMENT/PLAN: 1. Contusion of right great toe with damage to nail, initial encounter - ICD9: 924.3, ICD10: S90.211A (primary diagnosis) Occurred with dropping a wrench on foot No red flags No xray at time of exam - XR TOE AP/LAT/OBL RIGHT-will return 09/18/23 Please call with results Terry taped first toe to second toe Surgical post op shoe off shelf provided RICE F/U with podiatry 2. Subungual hematoma of great toe of right foot, initial encounter - ICD9: 924.3, ICD10: S90.211A Occurred one week ago Likely the reason for bleeding with cutting of nail today No active bleeding Supportive measures Shaina Daly APRN.JAYY documented in [facility] encounter[facility] Miscellaneous Notes* Telephone Encounter - Harika Richardson LPN - 08/30/2023 9:23 AM EDT Patient returned call and went over notes below from Dr Celeste several times until patient understanding. Aware rx sent to pharmacy. Patient said he is not making a pain management appt said he does not need that, keeping his appt in [place] for his eyes, double vision issue. * Telephone Encounter - Lu Evans RN - 08/30/2023 8:17 AM EDT Left msg with to return call to receive providers information and instructions. * Telephone Encounter - Prince Celeste MD - 08/29/2023 5:46 PM EDT Patient's request for medication is as follows Requested Prescriptions Signed Prescriptions Disp Refills DULoxetine (CYMBALTA) 20 mg capsule 30 capsule 0 Sig: Take 1 capsule by mouth once daily. Authorizing Provider: PRINCE CELESTE This is in addition to gabapentin. What happened to pain management consult ordered. Please assist with scheduling if he is still interested.. Prince Celeste MD * Telephone Encounter - Lu Evans RN - 08/29/2023 10:42 AM EDT Pt is calling in stating he is still having pain in his head where he had his shingles. States the Gabapentin 300 mg three times a day is not helping a lot. He states his pain every day is between 4-6/10. Wondering if Dr. Celeste could order the Gabapentin for 4 times a day instead of 3 or prescribe him something else. documented in this encounterGalion [facility]05-[facility] Telephone encounter Note * Telephone Encounter - Harika Richardson LPN - 08/30/2023 9:23 AM EDT Patient returned call and went over notes below from Dr Celeste several times until patient understanding. Aware rx sent to pharmacy. Patient said he is not making a pain management appt said he does not need that, keeping his appt in [place] for his eyes, double vision issue. [facility]-09-2024 Telephone encounter Note* Telephone Encounter - Lu Evans RN - 08/30/2023 8:17 AM EDT Left msg with to return call to receive providers information and instructions. [facility]-08-2024 Telephone encounter Note* Telephone Encounter - Prince Celeste MD - 08/29/2023 5:46 PM EDT Patient's request for medication is as follows Requested Prescriptions Signed Prescriptions Disp Refills DULoxetine (CYMBALTA) 20 mg capsule 30 capsule 0 Sig: Take 1 capsule by mouth once daily. Authorizing Provider: PRINCE CELESTE This is in addition to gabapentin. What happened to pain management consult ordered. Please assist with scheduling if he is still interested.. Prince Celeste MD [facility]-2024 Telephone encounter Note* Telephone Encounter - Lu Evans RN - 08/29/2023 10:42 AM EDT Pt is calling in stating he is still having pain in his head where he had his shingles. States the Gabapentin 300 mg three times a day is not helping a lot. He states his pain every day is between 4-6/10. Wondering if Dr. Celeste could order the Gabapentin for 4 times a day instead of 3 or prescribe him something else. [facility] Telephone encounter Note* Telephone Encounter - Harika Richardson LPN - 08/13/2023 10:01 AM EDT Patient returned call and went over notes from Dr Celeste with understanding. Patient said he is seeing Albert Vickers in [place] in October for his double vision. [facility] Miscellaneous Notes* Telephone Encounter - Harika Richardson LPN - 08/13/2023 10:01 AM EDT Patient returned call and went over notes from Dr Celeste with understanding. Patient said he is seeing Albert Vickers in [place] in October for his double vision. * Telephone Encounter - Destinee Bailon OCCA - 08/13/2023 9:49 AM EDT TC no answer. Left VM to return call. JAMES Bergeron * Telephone Encounter - Prince Celeste MD - 08/10/2023 6:03 PM EDT Please inform the patient, shingles causes nerve damage so pain, numbness, tingling will take time to improve. * Telephone Encounter - Merna Austin LPN - 08/10/2023 1:14 PM EDT Pt calling with a question. Pt was dx with shingles and his forehead is still numb. Pt had an MRI and CT done and nothing was found. Pt asking if you know why his forehead is still numb. Please advise pt. Merna Austin LPN documented in this encounterGalion Hospital04-[facility]24 Telephone encounter Note * Telephone Encounter - Destinee Bailon OCCA - 08/13/2023 9:49 AM EDT TC no answer. Left VM to return call. JAMES Bergeron [facility]04-19-20[facility] Telephone encounter Note* Telephone Encounter - Prince Celeste MD - 08/10/2023 6:03 PM EDT Please inform the patient, shingles causes nerve damage so pain, numbness, tingling will take time to improve. [facility] Telephone encounter Note* Telephone Encounter - Merna Austin LPN - 08/10/2023 1:14 PM EDT Pt calling with a question. Pt was dx with shingles and his forehead is still numb. Pt had an MRI and CT done and nothing was found. Pt asking if you know why his forehead is still numb. Please advise pt. Merna Austin LPN [facility]-18[facility] Miscellaneous Notes* Telephone Encounter - Olivia Stoddard RN - 08/09/2023 9:26 AM EDT Patient returned call and given provider's message below and patient verbalized understanding. Patient would like Dr. Celeste to know that he still has double vision. Radha Stoddard RN * Telephone Encounter - Gisselle Craven LPN - 08/09/2023 8:11 AM EDT Left message to call & speak to nurse. Gisselle Craven LPN * Telephone Encounter - Prince Celeste MD - 08/08/2023 10:24 PM EDT Yes, this can be from gabapentin. Monitor only for now. As I stated before, once his neuralgia is noticeably improved, he can let us know to start reducing his dose gradually. Do not stop medication abruptly. * Telephone Encounter - Natalie Mauricio RN - 08/07/2023 3:59 PM EDT Patient calls back and states that he has been noticing tremors in his bilateral hands since yesterday. Patient states that they come and go. Patient does not currently have. Patient is wondering if it maybe medication related? Answer Assessment - Initial Assessment Questions 1. SYMPTOM: Tremor/Shakes every once in a while 2. ONSET: Noticed this since yesterday. 3. LAST NORMAL: Sunday. 4. PATTERN Comes and Goes; Denies symptoms currently 5. CARDIAC SYMPTOMS: Denies cardiac symptoms. 6. NEUROLOGIC SYMPTOMS: Double Vision which has been going on for about a month. 7. OTHER SYMPTOMS: Denies other symptoms Protocols used: Neurologic Vzqxhvs-NMJVJ-BL * Telephone Encounter - Michelle Hogan - 08/07/2023 3:36 PM EDT Seda is calling Prince Celeste MD today with concern regarding Tremor in his hands. Patient has been identified by name and birthdate. Duration of symptoms: 2 days Person calling: self Call patient at: at home [phone] (home) Was an appointment scheduled: No Closing statement: Michelle Short documented in this encounterGalion Hospital04-16-2024 Miscellaneous Notes* Telephone Encounter - Zaida Hamilton RN - 08/07/2023 3:11 PM EDT Patient returns call and message reviewed several times with verbalized understanding. Patient alsoasked to review message with who also verbalized understanding. Zaida Hamilton RN * Telephone Encounter - Travis Peña MA - 08/07/2023 2:41 PM EDT Left message to call office. 08/07/2023 2:41 PM * Telephone Encounter - Prince Celeste MD - 08/07/2023 2:22 PM EDT Inform patient of new prescription strength (100 mg 3 capsules TID to 300 mg one capsule TID). This is slightly above the recommended dose for his kidney function. If he notices his nerve pain has diminished, reduce to 300 mg twice a day and stay at that dose. Requested Prescriptions Signed Prescriptions Disp Refills gabapentin (NEURONTIN) 300 mg capsule 90 capsule 2 Sig: Take 1 capsule by mouth three times a day for 90 days. Authorizing Provider: PRINCE CELESTE Order entered - please phone pharmacy and notify patient. Prince Celeste MD * Telephone Encounter - Harika Richardson LPN - 08/07/2023 1:58 PM EDT Patient calling with update on how he is doing with his shingles nerve pain. He said still taking the Gabapentin 100 mg capsules 3 caps three times daily. He said his forehead is numb, he gets jabs in side of his head and top of his head at times, but is livable, rates his pain at 6 right now. He said [facility] is having him going to specialist in [place] for his double vision, they cannot do anything more. documented in this encounterGalion Hospital04-15-2024 Telephone encounter Note * Telephone Encounter - Prince Celeste MD - 08/06/2023 5:29 PM EDT He was given refills last month enough for one year. Requested Prescriptions Refused Prescriptions Disp Refills metFORMIN (GLUCOPHAGE) 1,000 mg tablet 90 tablet 3 Sig: Take 1 tablet by mouth daily with breakfast. Refused By: PRINCE CELESTE Reason for Refusal: A Refill not appropriate Please clarify with patient. What I expect is a request for updated prescription for GABAPENTIN. If this is working, I will change 100 mg to 300 mg capsule TID. [facility]04-15-[facility] Miscellaneous Notes* Telephone Encounter - Prince Celeste MD - 08/06/2023 5:29 PM EDT He was given refills last month enough for one year. Requested Prescriptions Refused Prescriptions Disp Refills metFORMIN (GLUCOPHAGE) 1,000 mg tablet 90 tablet 3 Sig: Take 1 tablet by mouth daily with breakfast. Refused By: PRINCE CELESTE Reason for Refusal: A Refill not appropriate Please clarify with patient. What I expect is a request for updated prescription for GABAPENTIN. If this is working, I will change 100 mg to 300 mg capsule TID. * Telephone Encounter - Sarahy Lewis - 08/06/2023 8:51 AM EDT Patient has been identified by name and date of : Yes, Provider Prince Celeste MD Date 08/06/2023 Time 8:52 am Patient phones for refill(s): Requested Prescriptions Pending Prescriptions Disp Refills metFORMIN (GLUCOPHAGE) 1,000 mg tablet 90 tablet 3 Sig: Take 1 tablet by mouth daily with breakfast. Date of last office visit in primary care: 07/25/2023 Date of next office visit in primary care: 11/12/2023 Please advise. Thank you. Sarahy Soto. documented in this encounterGalion Hospital04-15-2024 History of Present illness Narrative* Radha Anne - 08/06/2023 11:43 AM EDT POPULATION HEALTH NAVIGATION OUTREACH Action/[facility] Support: Called pt to schedule an appt in Pain Management. Lvm for pt to call [phone] for scheduling. Reason for Outreach Care Gap/HCC or Scheduling Wellness Visits Care Gaps due: Specialty Scheduling Patient Contacted: Unable or unnecessary to reach patient: Left message Navigation Signature: Radha Anne August 06, 2023 11:43 AM documented in this encounterGalion Hospital04-15-2024 Telephone encounter Note * Telephone Encounter - Sarahy Lewis - 08/06/2023 8:51 AM EDT Patient has been identified by name and date of : Yes, Provider Prince Celeste MD Date 08/06/2023 Time 8:52 am Patient phones for refill(s): Requested Prescriptions Pending Prescriptions Disp Refills metFORMIN (GLUCOPHAGE) 1,000 mg tablet 90 tablet 3 Sig: Take 1 tablet by mouth daily with breakfast. Date of last office visit in primary care: 07/25/2023 Date of next office visit in primary care: 11/12/2023 Please advise. Thank you. Sarahy Soto. [facility]04-10-[facility] Miscellaneous Notes* Telephone Encounter - Harika Richardson LPN - 08/01/2023 4:54 PM EDT Patient calling back asking about Gabapentin dose increase again. Went over notes below from Dr Celeste several times un til he understood. Attempted to transfer to museum service scheduler to get pain managementappt set up was given phone number [phone] Vishnu Jose, gave that information to patientwife since patient eye sight is not really good to write down things. * Telephone Encounter - Gisselle Craven LPN - 08/01/2023 1:14 PM EDT notified, verbalized understanding. Gisselle Craven LPN * Telephone Encounter - Prince Celeste MD - 08/01/2023 12:43 PM EDT Increase gabapentin to three capsules 3 times a day. Call for an update and new prescription in oneweek. He should have enough for about 12 days. Pain management consulted. Requested Prescriptions Signed Prescriptions Disp Refills gabapentin (NEURONTIN) 100 mg capsule Sig: Take 3 capsules by mouth three times a day for 180 days. Authorizing Provider: PRINCE CELESTE MD * Telephone Encounter - Philomena Tatum RN - 08/01/2023 11:59 AM EDT Pt called in and reports that the Gabapentin isn't helping with the pain. He states when it hits it's a 10/10 and starts in the nerves in his throat and goes to the back of his head to his eye. The pain is a N/T and burning, it can last 5 min and can happen up to 3-4 times a day. Pt is asking if provider can send in something stronger for the pain to [facility] in [place]. Pt is also asking for a consult to pain management. documented in this encounterGalion Hospital04-06-2024 Miscellaneous Notes* Telephone Encounter - Travis Peña MA - 07/28/2023 10:34 AM EDT Pt's notified, verbalized understanding. Travis Peña MA * Telephone Encounter - Prince Celeste MD - 07/28/2023 9:52 AM EDT Patient's request for medication is as follows Requested Prescriptions Signed Prescriptions Disp Refills gabapentin (NEURONTIN) 100 mg capsule 120 capsule 0 Sig: Take 2 capsules by mouth two times a day for 30 days. Authorizing Provider: PRINCE CELESTE Order entered - please phone pharmacy and notify patient. Prince Celeste MD * Telephone Encounter - Harika Richardson LPN - 07/27/2023 4:19 PM EDT Patient calling asking if he could have stronger medication, he is having nerve jabs during the day? Patient said has jabs in head to his eye and goes to his mouth. He takes the Gabapentin 100 mg 2 at bedtime, which is 1230 am to 1 am when he goes to bed. Patient said has no issues during the nightat all. [facility]. Please advise documented in this encounterGalion Hospital04-04-2024 Miscellaneous Notes* Telephone Encounter - Harika Richardson LPN - 07/26/2023 2:06 PM EDT Phoned patient and went over notes from Dr Celeste with understanding. * Telephone Encounter - Prince Celeste MD - 07/26/2023 1:23 PM EDT Medication mouthwash worsen's symptoms so just stop this. * Telephone Encounter - Natalie Mauricio RN - 07/26/2023 12:40 PM EDT Patient calls and states that mouthwash (uaxcsrwdviblycp-qsigbm-szrkxinco) causes mouth to become numb and it hits the nerves causing great pain. Patient asking if he should continue to take medication? Please review and advise, Natalie Mauricio RN documented in this encounterGalion Hospital04-04-2024 History of Present illness Narrative* Prince Celeste MD - 07/26/2023 10:48 AM EDT This note was created using M:Metricsriter. Subjective Patient presents with: Transition Of Care Transitional Care Management Progress Note The patients TCM visit was performed within the 7 days of discharge. Patient's Date of discharge: 07/18/23 Date of initial coordinator contact after discharge: 07/19/23 Discharge diagnosis: Herpes Zoster, left face, CN palsy. Medication review completed Yes Prince Celeste MD Provider Documentation: In follow-up of hospitalization, Seda Menchaca is a 77 year old male with the chief complaint of transition of care. I have reviewed the patient s last hospital course including diagnostic testing performed during this hospitalization, their discharge medications, and my assessment and plan with the patient and daughter Lili present at today s visit. Seda Menchaca is a 77 year old male developed blistering rash after he saw me for head injury. He was seen by [facility] in a timely manner and started on treatment for zoster. Hewas referred to [facility] due to concern for eye involvement, then referred to the ED due to CN involvement and diplopia. He was kept overnight, and an MRI of the brain was consistent, as well as some findings of chronic microvascular ischemic changes. He has returned to Dr. Rivas and eye findings are being closely monitored. He called complaining of shooting left eye and head pains, and I calledin gabapentin. This seemed to be helping. He was finishing 2 weeks of valacyclovir, per ID re commendation. His glucoses were elevated due to prednisone, but trending better. Review of Systems Constitutional: Negative for appetite change and fever. HENT: Positive for congestion, mouth sores and trouble swallowing. Eyes: Positive for pain and visual disturbance. Respiratory: Negative for cough and shortness of breath. Gastrointestinal: Positive for vomiting. Negative for diarrhea and nausea. Skin: Positive for rash. Neurological: Positive for facial asymmetry and headaches. Negative for speech difficulty. 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 metFORMIN (GLUCOPHAGE) 1,000 mg tablet Take 1 tablet by mouth daily with breakfast. olopatadine (PATANOL) 0.1 % ophthalmic solution Use 1 Drop in both eyes two times a day as needed (allergies). atorvastatin (LIPITOR) 40 mg tablet Take 1 tablet by mouth daily at bedtime. For cholesterol. fexofenadine (SOWMYA ALLERGY) 180 mg tablet Take 1 tablet by mouth once daily. blood sugar diagnostic ([place] ULTRA TEST) test strip Test blood sugar(s) 1 times daily. Dx:E11.9Insulin: no traZODone (DESYREL) 100 mg tablet Take 1 tablet by mouth daily at bedtime. glipiZIDE (GLUCOTROL XL) 2.5 mg 24 hr tablet Take 1 tablet by mouth every morning. sildenafil (VIAGRA) 100 mg tablet Take 1 tablet by mouth once daily as needed (for ED.). amLODIPine (NORVASC) 10 mg tablet Take 1 tablet by mouth once daily. [facility] acetaminophen (TYLENOL) 500 mg tablet Take 500 mg by mouth every 8 hours as needed. diclofenac sodium (VOLTAREN) 1 % topical gel Apply 2 g to affected area three times daily as needed(wrist pain). Omeprazole Magnesium (PRILOSEC OTC) 20 mg tablet Take 1 tablet by mouth daily before breakfast. 1/2hr before meal. nitroglycerin sublingual (NITROQUICK) 0.4 mg SL tablet Dissolve 0.4 mg under the tongue every 5 minutes as needed. metoprolol tartrate, short acting, (LOPRESSOR) 50 mg tablet Take 1 tablet by mouth twice daily. tamsulosin (FLOMAX) 0.4 mg Take 1 capsule by mouth daily at bedtime. Dr. Singh. THERAPEUTIC MULTIVITAMIN TAB Take one(1) tablet daily. qqxgsgfdobLSSVY-ydvyft-upsaqhrur (BMX 1:1:1) 1:1:1 liqd Mix in equal amounts - 1 T every 2hrs as needed for mouth pain, Swish/swallow or expectorate. (8oz) No current facility-administered medications for this visit. Objective Blood Pressure 116/64 (BP Site: Left Arm, BP Position: Sitting, BP Cuff Size: Large Adult) Pulse 80 Respiration 16 Weight 64.9 kg (143 lb) Body Mass Index 24.55 kg/m Physical Exam Constitutional: General: He is not in acute distress. Appearance: He is not toxic-appearing. HENT: Head: Comments: Crusted lesions of the left forehead, left periorbital area, left nostril. Mouth/Throat: Mouth: Mucous membranes are moist. Palate: Lesions present. Eyes: General: Right eye: No discharge. Left eye: No discharge. Extraocular Movements: Right eye: No nystagmus. Left eye: Abnormal extraocular motion present. No nystagmus. Neurological: Mental Status: He is alert. Discharge summary, ophthalmology reports reviewed. Assessment and Plan 1. Herpes zoster keratitis - ICD9: 053.21, ICD10: B02.33 (primary diagnosis) Left eye. Follow up with Dr. Rivas. - NIVIQQSC-ZMHNFLQDN-IELFFPHG 3.5 MG/ML-10,000 UNIT/ML-0.1% EYE DROPS 2. Abducens (sixth) nerve palsy, left - ICD9: 378.54, ICD10: H49.22 Expected improvement with time. 3. Diplopia - ICD9: 368.2, ICD10: H53.2 Resolving. 4. Mouth sores - ICD9: 528.9, ICD10: K13.79 - It sounded like he never filled this. - ZPOHRAVVUVASHUM-MLCDPY-GOZWJQVWS ORAL LIQUID ADS Discussed medication dosage, usage, goals of therapy, and side effects. 5. Post zoster neuralgia - ICD9: 053.19, ICD10: B02.29 Improving. - Continue gabapentin. Discussed medication dosage, usage, goals of therapy, and side effects. Callfor refill or dose adjustment towards the end of the prescription. Prince Celeste MD * Prince Celeste MD - 07/25/2023 4:26 PM EDT Images from the original note were not included. Patient Outreach 07/19/2023 Internal Medicine Mary Prince Celeste MD Internal Medicine Transition Of Care Reason for Visit Progress Notes Harika Richardson LPN (LICENSED NURSE) TRANSITION CARE MANAGEMENT (TCM) INITIAL CONTACT Washtub Worker Outreach Provider Action/FYI: [facility] shingles face and left eye Initial contact with patient post discharge, spoke to patient. Patient identified by name and . TRANSITION CARE MANAGEMENT INITIAL OUTREACH DOCUMENTATION: 07/19/2023 Date of Outreach: Outreach Attempt 1: Contact Not Made Date of Discharge 07/18/2023 SUMMARY: -Pt discharged from [facility] on 07/18/2023. -Admitted for: see above Do you have a hospital follow up appointment with your PCP? Appointment on 07/25/[address] Celeste. Yes. Remind patient of appointment date, time, and location. If not within 14 calendar days of discharge - please reschedule accordingly. MEDICATIONS: Many patients have questions or concerns about their medications once they are home. Were you prescribed any new medications? No Were you told to hold any medications? Yes stop Valtrex when he completes the rx Were any of your medications discontinued? No Do you have any questions about getting or taking your medications? No Your discharge instructions/After visit Summary (AVS) are important in guiding you through the recovery process. Is there anything I might help you understand? Yes, discharge instructions/AVS no questions for the nurse. Do you have all the necessary equipment and supplies at home? No, follow site specific process to secure durable medical equipment and/or supplies for the patient, handoff to RN/PROFESSOR OF CRIMINAL JUSTICE, or LIP Medical records from recent hospitalization: [facility] Patient has appt with [facility] on 07/24/2023. Note Details Progress Notes Rimma Haskins LPN (LICENSED NURSE) Message left for pt to return call to a nurse to complete TCM note and arrange hospital f/u with pcp. Note Details Additional Documentation Flowsheets: Transitional Care Management Encounter Info: Billing Info, History, Allergies, Detailed Report, Procedural Documentation Communications View All Conversations on this Encounter Pharmacy Benefits SEDA MENCHACA - IRXME BB CDH-Y [id number] ([facility]) Covered: Retail, Mail Order Unknown: Specialty, Long-Term Care Group ID: [id number] Group name: [facility] - [id number]/[place] [employer] MEDICARE ADVANT BIN: [id number] PCN: IS : 1945 Legal sex: M Address: [address] [place] [id number] Travel Screening and History Disease Screening No documentation. Travel No documentation. Orders Placed None Medication Changes None Medication List Visit Diagnoses None Problem List documented in this encounterGalion Hospital03-27-2024 Progress note Author Srikanth Edwards [facility] July 18, 2023 11:23am Note Date/Time July 18, 2023 11: 23am [facility] Medical Records Department [facility] [place] [address] Progress Note - Hospitalist 07/18/23 1115 MR#: [id number] Acct: [id number] Name: SEDA MENCHACA Rep #:[id number] : 1945 77 From: Srikanth brewster MD PCP: Dr. Prince Celeste MD Status:A DM IN Location: [facility] [id number] Subjective Subjective Doing well, denies any pain. He does endorse some double vision at times Objective Data Objective Data Vital Signs: Vital Signs Temp Pulse Resp BP Pulse Ox O2 Del Method 97.6 F L 82 16 132/75 H 98 Room Air 07/18/23 08:56 07/18/23 08:59 07/18/23 08:56 07/18/23 08:59 07/18/23 08:56 07/18/23 09:00 Oxygen Delivery Method Room Air Weight: 139 lb 12.369 oz Body Mass Index (BMI) 23.2 Intake & Output: Intake and Output for Last 24 Hours 07/17/23 07/18/23 07/19/23 03:59 03:59 03:59 Intake Total 262.3 / 262.3 Balance 262.3 / 262.3 Lab / Micro Data 07/18/23 06:10 07/18/23 06:10 Labs: Laboratory Results - last 24 hr 07/17/23 12:00: WBC 11.5 H, RBC 4.64, Hgb 14.0, Hct 42.6, MCV 91.8, MCH 30.2, MCHC 32.9, RDW Std Deviation 46.6 H, RDW Coeff of Mary 13.7, Plt Count 262, MPV 10.1, Immature Gran % (Auto) 0.400, Neut % (Auto) 88.1 H, Lymph % (Auto) 8.3 L, [place] % (Auto) 2.9, Eos % (Auto) 0.0, Baso % (Auto) 0.3, Absolute Neuts (auto) 10.1 H, Absolute Lymphs (auto) 0.95, Nucleated RBC % 0, Sodium 137, Potassium 3.8, Chloride 101, Carbon Dioxide 26.0, Anion Gap 10, BUN 28 H, Creatinine 1.85 H, Estim Creat Clear Calc 29.09, Est GFR (MDRD) Af Amer 46 L, Est GFR (MDRD) Non-Af 38 L, BUN/Creatinine Ratio 15.1, Glucose 229 H, Calcium 9.4, Total Bilirubin 0.80, Direct Bilirubin 0.24, AST 21, ALT 28, Alkaline Phosphatase 64, Total Protein 7.7, Albumin 3.7, Globulin 4.0 07/17/23 16:04: POC Glucose 232 H 07/17/23 21:56: POC Glucose 155 H 07/18/23 06:10: WBC 11.4 H, RBC 4.61, Hgb 14.1, Hct 42.5, MCV 92.2, MCH 30.6, MCHC 33.2, RDW Std Deviation 46.5 H, RDW Coeff of Mary 13.6, Plt Count 286, MPV 10.6, Immature Gran % (Auto) 0.400, Neut % (Auto) 66.0, Lymph % (Auto) 23.2, [place] % (Auto) 9.1, Eos % (Auto) 0.7, Baso % (Auto) 0.6, Absolute Neuts (auto) 7.5, Absolute Lymphs (auto) 2.64, Nucleated RBC % 0, Sodium 138, Potassium 3.3 L, Chloride 103, Carbon Dioxide 28.0, Anion Gap 7, BUN 23 H, Creatinine 1.45 H, Estim Creat Clear Calc 37.11, Est GFR (MDRD) Af Amer 61, Est GFR (MDRD) Non-Af 50 L, BUN/Creatinine Ratio 15.9, Glucose 151 H, Calcium 9.3 07/18/23 06:14: POC Glucose 163 H Radiography Diagnostic Testing: Radiology Impression Brain CT 07/17/23 12:32 IMPRESSION: Chronic involutional changes of the brain. Electronically Signed: Favian Jaramillo MD at 13:24 EDT , Brain MRI 07/17/23 15:01 IMPRESSION: 1. Slight disconjugate gaze with medial deviation left eye compared to the right as could be seen with a left abducens nerve palsy. No corollary abnormal signal along the course abducens nerve with normal appearance of the orbits. Note that this exam is of limited utility due to motion artifact. Additionally post contrast imaging would be needed to display abnormal nerve enhancement is present. Patient with need to be still during the exam. 2. Small right mastoid effusion. 3. Moderate increased T2 and FLAIR signal periventricular white matter suggesting chronic small vessel ischemic changes. Electronically Signed: Joe Del Valle DO at 20:58 EDT , Physical Exam Narrative General: Alert, Oriented x3, Cooperative, No apparent distress HEENT: Atraumatic, PERRLA, EOMI, Normocephalic, shingle scar on the left face all lesions are crusted no signs of super bacterial infection. Left lateral gaze does initiate double vision Oral: Moist Mucosa Neck: Supple, No JVD Lungs: Clear to auscultation, Normal air movement, No rhonchi, No wheeze, No rales Cardiovascular: Regular rate, Regular Rhythm, Normal S1, Normal S2, No murmurs Abdomen: Soft, Non Tender, Non-Distended, No Hepato-splenomegaly Extremities: No edema, Capillary Refill Less than 3 Seconds Skin: No rashes, No breakdown Musculoskeletal: No Tenderness to Palpation of Joints or Extremities Neurological: No focal neurological deficits, Motor Exam 5/5 strength throughout, Sensory exam intact to light touch and pain Psych/Mental Status: Normal Affect, Appropriate Assessment & Plan Assessment/Plan (1) Herpes zoster: PLAN: Plan 1. Herpes zoster of the left face with possible left sixth cranial nerve involvement ? He has been on antiviral since last Sunday and the lesions are all crusted over with no signs of bacterial infection ? No signs of encephalitis or meningitis he is alert and oriented and of normal behavior ? Family endorses that his lesions look much better than they did even several days ago ? Denies any neurologic pain with the shingles ? He wants to go home today, he does understand the risks and benefits of discharge today he has agreed to await evaluation by infectious disease ? MRI demonstrated a slight disconjugate gaze with medial deviation of the left eye no corollary abnormal signal along the course of the abducens nerve with normal appearance of the orbits there was motion artifact. He did have moderateincreased T2 and FLAIR signal in the periventricular white matter suggesting chronic small vessel ischemic changes 2. Essential HTN/HLD/CAD ? Continue with his home blood pressure medications ? We will monitor make adjustments as necessary ? Blood pressures are currently stable ? Continue with his cholesterol medication 3. DM2/CKD 3a ?Will hold metformin ? Continue with sliding scale insulin ? Accu-Cheks ACHS ? Monitor make adjustments as necessary ? Renal function does appear to be at baseline 4. BPH ? Stable ? Continue Flomax DVT: Lovenox Charges/Coding Visit Charges Inpatient E&M: 31581 Subs Hosp L2 07/18/23 1123 <Electronically signed by Srikanth Edwards MD> Cosigner Signature (if applicable): CC: ~ Signed [facility] Work Phone: 1(360) 710-368603-26-2024 Discharge summary Author Nigel Kaiser [facility] July 17, 2023 4:33pm Note Date/Time July 17, 2023 11: 52am [facility] Medical Records Department [address] [place] [address] Emergency Department Summary 07/17/23 MR#: [id number] Acct: [id number] Name: SEDA MENCHACA Rep #:[id number] : 1945 77 From: Nigel Lu PCP: Dr. Prince Celeste MD Status:A DM IN Location: [place] [address] HPI History of Present Illness Chief Complaint: Rash Informant: patient, spouse/S.O. and family Narrative Narrative: 77-year-old male presenting to the emergency department with the chief complaintof double vision. Patient states that on 07 July he was in his garage and close the door to hit him on top of the head. He states that shortly thereafterhe began to have a rash on his scalp. He was seen by primary care on Sunday andreferred to dermatology. Dermatology saw him on Sunday and felt that his rash was consistent with shingles and he was started on prednisone and valacyclovir. He also was referred to ophthalmology where he was started on neomycin-polymyxin B-dexamethasone. Yesterday he developed double vision and saw ophthalmology today. During that examination it was noted he had a dilated left pupil. It was fully dilated for examination by ophthalmology. It was feltthat he was beginning to have a 6th nerve palsy. He was sent to the emergency department for evaluation. [facility] Medical History Abnormal result of cardiovascular function study Abnormal stress test Atherosclerotic heart disease of [place] coronary artery without angina pectoris Chest pain, precordial Diabetes mellitus type 2 with peripheral artery disease Dizziness Dyspnea, unspecified Edema Essential hypertension Family history of completed stroke Family history of ischemic heart disease and other diseases of the circulatory system Fatigue Fatigue Herpes zoster Hypertension Long-term use of high-risk medication Old myocardial infarction Pure hypercholesterolemia Home Medications nitroglycerin 0.4 mg sublingual tablet 0.4 mg sublingual Q5M PRN Chest Pain 05/12/14 [History Last Taken Unknown] tamsulosin 0.4 mg capsule 0.4 mg PO DAILY urine flow 05/12/14 [History Last Taken 07/16/23] sildenafil 100 mg tablet (Viagra) 100 mg PO DAILY PRN sexual activity 03/12/19 [History Last Taken Unknown] metformin 500 mg tablet 1,000 mg PO DAILY diabetes 05/24/20 [History Last Taken 07/17/23] acetaminophen 500 mg tablet (Tylenol Extra Strength) 500 mg PO Q6H PRN pain, fever 10/05/21 [History Last Taken Unknown] cetirizine 10 mg tablet 10 mg PO DAILY sinus 10/05/21 [History Last Taken 07/17/23] amlodipine 10 mg tablet 10 mg PO QDAY blood prerssure #90 tabs 02/19/23 [Rx Last Taken 07/17/23] metoprolol tartrate 50 mg tablet 50 mg PO BID heart #180 tabs 02/19/23 [Rx Last Taken 07/17/23 08:52] atorvastatin 40 mg tablet 40 mg PO QHS cholesterol #90 tabs 06/07/23 [Rx Last Taken 07/16/23] glipizide 2.5 mg tablet, extended release 24 hr 2.5 mg PO DAILY diabetes 06/07/23 [History Last Taken 07/17/23] gabapentin 100 mg capsule 200 mg PO QHS shingle pain at night time 07/17/23 [History Last Taken 07/16/23] multivitamin with minerals-folic acid 80 mcg chewable tablet (Centrum Adult 50 Plus) 1 tab PO DAILY suppliment 07/17/23 [History Last Taken 07/17/23] qrkjdloj-ciwfckyfm-fgdkxbns 3.5 mg/mL-10,000 unit/mL-0.1% eye drops 1 drp LEFT EYE 4X/DAY shingles 07/17/23 [History Last Taken 07/17/23] prednisone 20 mg tablet 20 mg PO DAILY steroid 07/17/23 [History Last Taken 07/17/23] valacyclovir 1 gram tablet 1,000 mg PO TID shingles 07/17/23 [History Last Taken 07/17/23] Allergy/AdvReac Type Severity Reaction Status Date / Time Penicillins Allergy Unknown Verified 06/07/23 13:47 Family History Mother CVA (cerebral vascular accident) Brother CAD (coronary artery disease) Surgical History Aortocoronary bypass status (~06/30/08) History of carpal tunnel surgery Social History (Updated 07/17/23 @ 15:39 by Kiara Gloria) Smoking Status: Former smoker alcohol intake: never ROS ROS ED Constitutional Constitutional ED: Denies chills, fever(s) or weight loss Eyes Eyes: Reports change in vision and diplopia ENT ENT ED: Denies ear pain, rhinorrhea or sore throat Cardiovascular Cardiovascular: Denies chest pain, orthopnea, palpitations or racing heartbeat Respiratory/Chest Respiratory/Chest: Denies cough, dyspnea or orthopnea Gastrointestinal Gastrointestinal: Denies abdominal pain, diarrhea, nausea or vomiting Genitourinary Genitourinary ED: Denies dysuria, hematuria or urinary frequency Musculoskeletal Musculoskeletal: Denies arthralgias or myalgias Integumentary Reports rash; Denies abscess Neurologic Neurologic: Reports paresthesias; Denies headache(s) or weakness Psychiatric Psychiatric: Denies anxiety, depression, suicidal ideation or suicidal thoughts Endocrine Endocrinology: Denies polydipsia, polyphagia or polyuria Allergic/Immunologic Allergic/Immunologic ED: Denies mouth swelling, tongue swelling or urticaria EXAM Physical Exam Const Vital Signs: 07/17/23 11:21 07/17/23 11:21 07/17/23 13:21 Temperature 95.9 F L 98 F Temperature Source Temporal Temporal Pulse Rate 80 79 78 Respiratory Rate 14 14 23 H Blood Pressure 147/82 H 147/82 H 143/74 H Blood Pressure Mean 103 103 97 Pulse Ox 98 100 97 Oxygen Delivery Method Room Air Room Air Room Air 07/17/23 14:11 Temperature 98 F Temperature Source Pulse Rate 77 Respiratory Rate 21 H Blood Pressure 143/74 H Blood Pressure Mean 97 Pulse Ox 97 Oxygen Delivery Method Positive well nourished and well developed General Appearance ED: well developed HEENT Reports normocephalic, head/scalp atraumatic, TM's clear and moist mucous membranes HEENT Narrative: There are healing lesions on the hard palate and gumline of the left side Tympanic Membrane ED: Yes TM's clear Eyes Eyes Narrative: Left pupil is dilated. Double vision resolves if he covers the right eye and itresolves if he covers the left eye. I do not appreciate subconjunctival injection Neck no lymphadenopathy, supple and no JVD Resp normal respiratory effort and clear to auscultation bilaterally Cardio regular rate, regular rhythm and no murmurs GI normal to inspection, nondistended, normoactive bowel sounds and non-tender Palpation: soft Back/Spine no CVA tenderness and normal ROM Extremity normal to inspection General Extremety ED: Negative for edema General Extremity: Negative for edema Neuro oriented x3 and CN's II-XII intact bilaterally Sensorium / Orientation: alert Motor Exam: strength 5/5 throughout Psych mental status grossly normal Mood & Affect: Negative for depressed or tearful Skin no wounds Skin Narrative: There are lesions consistent with a zoster involving the forehead left face leftnose left maxillary region. Most of these are starting to be crusted over. There is mild redness of the skin MDM MDM MDM Narrative Medical decision making narrative: To the trauma and then the developing nerve palsy CT of the brain was obtained which does not demonstrate any intracranial hemorrhage or mass. White count elevated 11.5 probable due to steroid use. Creatinine 1.85 with a BUN of 28. Glucose 229 with normal liver enzymes. I spoke with infectious disease (Dr. Trinidad). His recommendation is for IV acyclovir. Continuation of steroids. I spoke with her hospitalist who will be admitting. History & Record Review Discussion w/independent historian: Patient and Family Lab Data Attestation: I reviewed the patient's lab results. Labs: Laboratory Results - last 24 hr 07/17/23 12:00 WBC 11.5 H RBC 4.64 Hgb 14.0 Hct 42.6 MCV 91.8 MCH 30.2 MCHC 32.9 RDW Std Deviation 46.6 H RDW Coeff of Mary 13.7 Plt Count 262 MPV 10.1 Immature Gran % (Auto) 0.400 Neut % (Auto) 88.1 H Lymph % (Auto) 8.3 L [place] % (Auto) 2.9 Eos % (Auto) 0.0 Baso % (Auto) 0.3 Absolute Neuts (auto) 10.1 H Absolute Lymphs (auto) 0.95 Nucleated RBC % 0 Sodium 137 Potassium 3.8 Chloride 101 Carbon Dioxide 26.0 Anion Gap 10 BUN 28 H Creatinine 1.85 H Estim Creat Clear Calc 29.09 Est GFR (MDRD) Af Amer 46 L Est GFR (MDRD) Non-Af 38 L BUN/Creatinine Ratio 15.1 Glucose 229 H Calcium 9.4 Total Bilirubin 0.80 Direct Bilirubin 0.24 AST 21 ALT 28 Alkaline Phosphatase 64 Total Protein 7.7 Albumin 3.7 Globulin 4.0 Radiography Diagnostic Testing: Clinical Impression(s) from Imaging Studies Brain CT 07/17/23 12:32 IMPRESSION: Chronic involutional changes of the brain. Electronically Signed: Favian Jaramillo MD at 13:24 EDT , Management Discussion w/another healthcare provider: Hospitalist (Dr. Yin) and Cover Stripper (ID (Dr. Joyce)) Discharge Plan Dx/Rx/DC Orders Clinical Impression: Diplopia, 6th nerve palsy, Herpes zoster, Diabetes mellitus Disposition Disposition: Acute Care Hospital [facility] What to do if you have Problems For any increased pain, shortness of breath, bleeding, nausea or vomiting, chestpain, or any unexpected problems, contact your Primary Care Provider. Call [facility] ([phone]) or report to the closest Emergency Room. Call 911 if necessary. 07/17/23 1633 <Electronically signed by Nigel Kaiser DO> Cosigner Signature (if applicable): CC: Dr. Prince Celeste MD ~ Signed [facility] Work Phone: 1(554) 873-349003-26-2024 History and physical note Author Reynaldo Yin [facility] July 17, 2023 2:52pm Note Date/Time July 17, 2023 2:5 3pm [facility] Medical Records Department [address] [place] [address] H&P Exam - Hospitalist 07/17/23 1445 MR#: [id number] Acct: [id number] Name: SEDA MENCHACA Rep #:[id number] : 1945 77 From: Reynaldo Yin DO PCP: Dr. Prince Celeste MD Status:A DM IN Location: [facility] [id number] HPI - General General Date of Admission: 07/17/23 Date of Service: 07/17/23 Chief Complaint: rash HPI Narrative SEDA MENCHACA, is a 77 M who presents with rash or less on his face. Patient hit his head on his garage door 2 Mondays ago and saw his primary care doctor last Sunday and was diagnosed with shingles. Patient was started on valganciclovir as well as prednisone. Despite that it was getting worse. Patient was referred over to dermatology who subsequent referred him to ophthalmology. At the ophthalmology office, there is concerned about a left 6 cranial nerve palsy. Patient was sent to the emergency room. Patient received acyclovir after speaking with infectious disease. But given the severity of hiszoster, hospital service was contacted for admission. Patient denies any history of shingles in the past. [facility] Medical History Abnormal result of cardiovascular function study Abnormal stress test Atherosclerotic heart disease of [place] coronary artery without angina pectoris Chest pain, precordial Diabetes mellitus type 2 with peripheral artery disease Dizziness Dyspnea, unspecified Edema Essential hypertension Family history of completed stroke Family history of ischemic heart disease and other diseases of the circulatory system Fatigue Fatigue Herpes zoster Hypertension Long-term use of high-risk medication Old myocardial infarction Pure hypercholesterolemia Home Medications nitroglycerin 0.4 mg sublingual tablet 0.4 mg sublingual Q5M PRN Chest Pain 05/12/14 [History Last Taken Unknown] tamsulosin 0.4 mg capsule 0.4 mg PO DAILY 05/12/14 [History Last Taken Unknown] sildenafil 100 mg tablet (Viagra) 100 mg PO DAILY PRN sexual activity 03/12/19 [History Last Taken Unknown] metformin 500 mg tablet 1,000 mg PO DAILY 05/24/20 [History Last Taken Unknown] acetaminophen 500 mg tablet (Tylenol Extra Strength) 500 mg PO Q6H PRN pain, fever 10/05/21 [History Last Taken Unknown] cetirizine 10 mg tablet 10 mg PO DAILY 10/05/21 [History Last Taken Unknown] amlodipine 10 mg tablet 10 mg PO QDAY #90 tabs 02/19/23 [Rx Last Taken Unknown] metoprolol tartrate 50 mg tablet 50 mg PO BID #180 tabs 02/19/23 [Rx Last Taken Unknown] atorvastatin 40 mg tablet 40 mg PO QHS #90 tabs 06/07/23 [Rx Last Taken Unknown] glipizide 2.5 mg tablet, extended release 24 hr 2.5 mg PO DAILY 06/07/23 [History Last Taken Unknown] hugkectu-ecfmgrjuz-bvlqneue 3.5 mg/mL-10,000 unit/mL-0.1% eye drops 1 drp LEFT EYE 4X/DAY 07/17/23 [History Last Taken Unknown] prednisone 20 mg tablet 20 mg PO DAILY 07/17/23 [History Last Taken Unknown] valacyclovir 1 gram tablet 1,000 mg PO TID 07/17/23 [History Last Taken Unknown] Allergy/AdvReac Type Severity Reaction Status Date / Time Penicillins Allergy Unknown Verified 06/07/23 13:47 Family History Mother CVA (cerebral vascular accident) Brother CAD (coronary artery disease) Surgical History Aortocoronary bypass status (~06/30/08) History of carpal tunnel surgery Social History Smoking Status: Former smoker alcohol intake: never ROS ROS Narrative Patient states he has a history of left carpal tunnel syndrome. Recently has been experiencing left arm paresthesias and left leg paresthesias. 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 All review of systems were negative except as mentioned above in the history of present illness and the other review of systems. Vital Signs Vital Signs Vital Signs: 07/17/23 11:21 07/17/23 11:21 07/17/23 13:21 Temperature 35.5 C L 36.6 C Temperature Source Temporal Temporal Pulse Rate 80 79 78 Respiratory Rate 14 14 23 H Blood Pressure 147/82 H 147/82 H 143/74 H Blood Pressure Mean 103 103 97 Pulse Ox 98 100 97 Oxygen Delivery Method Room Air Room Air Room Air 07/17/23 14:11 Temperature 36.6 C Temperature Source Pulse Rate 77 Respiratory Rate 21 H Blood Pressure 143/74 H Blood Pressure Mean 97 Pulse Ox 97 Oxygen Delivery Method Weight Weight: 65.68 kg Body Mass Index (BMI) 24.0 Physical Exam Const alert and no apparent distress HEENT HEENT Narrative: Tympanic membrane within normal limits on the left and chronically ruptured on the right. No vesicular lesions noted within the ear canals. Mucous membranes are moist. Patient has some aphthous lesions on his hard palate. Eyes Eyes Narrative: Left pupil slightly larger than the right the patient may have been dilated at the ophthalmology office. Is reactive to light, however. Extraocular muscles are intact but patient has a impaired lateral saccade of the left with lateral gaze. Neck no lymphadenopathy Neck Narrative: No thyromegaly Resp normal respiratory effort, no retractions, no use of accessory muscles and clearto auscultation bilaterally Cardio regular rate, regular rhythm, S1 normal heart sound and S2 normal heart sound GI normal to inspection, nondistended, normoactive bowel sounds, soft to palpation,non-tender and non-distended Extremity normal to inspection, full ROM and no clubbing, cyanosis or edema Skin Skin Narrative: Scaling, scabbed over lesions over the left forehead and nose and face. Patienthas also blackened area over his left nose. Neuro Sensorium / Orientation: awake and alert Speech: speech normal Motor Exam: strength 5/5 throughout Psych affect normal Results Lab / Micro Data 07/17/23 12:00 07/17/23 12:00 Labs: Laboratory Results - last 24 hr 07/17/23 12:00: WBC 11.5 H, RBC 4.64, Hgb 14.0, Hct 42.6, MCV 91.8, MCH 30.2, MCHC 32.9, RDW Std Deviation 46.6 H, RDW Coeff of Mary 13.7, Plt Count 262, MPV 10.1, Immature Gran % (Auto) 0.400, Neut % (Auto) 88.1 H, Lymph % (Auto) 8.3 L, [place] % (Auto) 2.9, Eos % (Auto) 0.0, Baso % (Auto) 0.3, Absolute Neuts (auto) 10.1 H, Absolute Lymphs (auto) 0.95, Nucleated RBC % 0, Sodium 137, Potassium 3.8, Chloride 101, Carbon Dioxide 26.0, Anion Gap 10, BUN 28 H, Creatinine 1.85 H, Estim Creat Clear Calc 29.09, Est GFR (MDRD) Af Amer 46 L, Est GFR (MDRD) Non-Af 38 L, BUN/Creatinine Ratio 15.1, Glucose 229 H, Calcium 9.4, Total Bilirubin 0.80, Direct Bilirubin 0.24, AST 21, ALT 28, Alkaline Phosphatase 64, Total Protein 7.7, Albumin 3.7, Globulin 4.0 Imaging Radiology Impression Brain CT 07/17/23 12:32 IMPRESSION: Chronic involutional changes of the brain. Electronically Signed: Favian Jaramillo MD at 13:24 EDT , Assessment & Plan Assessment/Plan (1) Herpes zoster: PLAN: Plan Herpes zoster * Involving the left forehead and face. Concern also involving the left 6 cranial nerve. Does not appear to be disseminated at this time. * Patient had been taking valganciclovir previous to this. Patient will be started on acyclovir 10 mg/kg every 8 hours. Will continue with the prednisone. * Supportive treatment with gabapentin, acetaminophen and oxycodone. * Patient complaining of left-sided paresthesias. Patient has known neuropathy for his lower extremities. I am not sure if patient is hyperaware at this time or if he does have new deficits. Will order an MRI to further evaluate that. * Infectious disease consultation. * Will consult wound care as patient does have significant lesions on his face trigger his nose. Chronic kidney disease stage IIIb * Creatinine slightly higher than baseline. Will hold metformin for now. Will give liter of IV fluids and monitor. * Close monitoring while patient is on acyclovir. DM2 * Hold metformin. Some scale insulin. Chronic condition * CAD: Stable * Hyperlipidemia: Continue statin * BPH: Continue tamsulosin VTE prophylaxis with enoxaparin CODE STATUS: Addressed with the patient. Patient was to be full code. Patient was very concerned about going home so he can take care of his . Patient's daughter was present at bedside and said that she will be able to helphis , apparently has dementia. Patient and the rest of his family were comfortable with being brought in the hospital but when he said that he may be here 1 to 2 days, he was concerned that he may not be able to stay that long. Patient may require further reassurance and recommendations throughout his hospitalization. Charges/Coding Visit Charges Inpatient E&M: 21330 Init Hosp L3 07/17/23 1452 <Electronically signed by Reynaldo Yin DO> Cosigner Signature (if applicable): CC: Dr. Reynaldo Yin DO; Dr. Prince Celeste MD~ Signed [facility] Work Phone: 1(972) 745-214003-21-2024 Miscellaneous Notes* Telephone Encounter - Rocío Parker RN - 07/12/2023 6:52 PM EDT Attempted to contact patient. No answer. Try later. Rocío Parker RN * Telephone Encounter - Prince Celeste MD - 07/12/2023 6:10 PM EDT Patient's request for medication is as follows Requested Prescriptions Signed Prescriptions Disp Refills gabapentin (NEURONTIN) 100 mg capsule 60 capsule 0 Sig: Take 2 capsules by mouth daily at bedtime for 30 days. Authorizing Provider: PRINCE CELESTE Order entered - please phone pharmacy and notify patient. Prince Celeste MD * Telephone Encounter - Olivia Stoddard RN - 07/12/2023 9:53 AM EDT Patient was seen by Dr. Celeste this Saturday 07/08 and was advised to see Dr. Maloney for further evaluation of nodules on his scalp as well as papules on left forehead. Patient calling to update Dr. Celeste that he saw a provider at Dr. Maloney's office as advised, and they diagnosed him with Shingles and ordered him prednisone. Patient also saw his early childhood specialist this week who also confirmed shingles, which is affecting pt's left eye and left side of face. Pt reports 2 eye medications were ordered for him as well. Patient states the prednisone is not helping his discomfort and asking if Dr. Celeste would ordersomething for the pain he is experiencing on the top and left side of his head, nose and mouth. Pt also requesting something to help him sleep. Reports he is not sleeping. Pt uses [facility]. Please call patient back with PCP reply. Thank you. [facility] History of Present illness Narrative* Prince Celeste MD - 07/10/2023 7:14 AM EDT This note was created using [employer]. Subjective Patient presents with: Headache Seda Menchaca is a 77 year old male who had multiple acute issues. He was here primarily for headache and transient dizziness after he was hit on top of his head by his manually closed garage door yesterday. He sat down and rested, and took Tylenol and symptoms improved. He denied significant neck pain or fever. He noted some discoloration of his left forehead and his left cheek. Other issues mentioned where rhinorrhea and left dental pain since yesterday. He felt this was allergy related and was going to rock picker [place]. He requested refill of Patanol eye drops. Review of Systems Constitutional: Negative for chills, fatigue and fever. HENT: Positive for mouth sores and rhinorrhea. Negative for sore throat. Eyes: Negative for pain, discharge and visual disturbance. Respiratory: Negative for cough, chest tightness and shortness of breath. Cardiovascular: Negative for chest pain and palpitations. Gastrointestinal: Negative for nausea and vomiting. Musculoskeletal: Negative for gait problem. Neurological: Negative for dizziness, syncope, facial asymmetry, speech difficulty, weakness, light-headedness and numbness. 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 Dx:E11.9Insulin: no traZODone (DESYREL) 100 mg tablet Take 1 tablet by mouth daily at bedtime. glipiZIDE (GLUCOTROL XL) 2.5 mg 24 hr tablet Take 1 tablet by mouth every morning. sildenafil (VIAGRA) 100 mg tablet Take 1 tablet by mouth once daily as needed (for ED.). amLODIPine (NORVASC) 10 mg tablet Take 1 tablet by mouth once daily. [facility] acetaminophen (TYLENOL) 500 mg tablet Take 500 mg by mouth every 8 hours as needed. diclofenac sodium (VOLTAREN) 1 % topical gel Apply 2 g to affected area three times daily as needed(wrist pain). Omeprazole Magnesium (PRILOSEC OTC) 20 mg tablet Take 1 tablet by mouth daily before breakfast. 1/2hr before meal. nitroglycerin sublingual (NITROQUICK) 0.4 mg SL tablet Dissolve 0.4 mg under the tongue every 5 minutes as needed. metoprolol tartrate, short acting, (LOPRESSOR) 50 mg tablet Take 1 tablet by mouth twice daily. tamsulosin (FLOMAX) 0.4 mg Take 1 capsule by mouth daily at bedtime. Dr. Singh. THERAPEUTIC MULTIVITAMIN TAB Take one(1) tablet daily. metFORMIN (GLUCOPHAGE) 1,000 mg tablet Take 1 tablet by mouth daily with breakfast. olopatadine (PATANOL) 0.1 % ophthalmic solution Use 1 Drop in both eyes two times a day as needed (allergies). atorvastatin (LIPITOR) 40 mg tablet Take 1 tablet by mouth daily at bedtime. For cholesterol. fexofenadine (SOWMYA ALLERGY) 180 mg tablet Take 1 tablet by mouth once daily. rxwrrcmnokSDURX-meowcx-fnxnitdvz (BMX 1:1:1) 1:1:1 liqd Mix in equal amounts - 1 T every 2hrs as needed for mouth pain, Swish/swallow or expectorate. (8oz) No current facility-administered medications for this visit. Objective Blood Pressure 146/74 (BP Site: Left Arm, BP Position: Sitting, BP Cuff Size: Large Adult) Pulse 64 Temperature 36.7 C (98.1 F) (Temporal) Respiration 16 Weight 67.6 kg (149 lb) Body Mass Index 25.58 kg/m Physical Exam Constitutional: General: He is not in acute distress. HENT: Head: Atraumatic. No Horvath's sign, abrasion, contusion or laceration. Jaw: There is normal jaw occlusion. No tenderness. Right Ear: Tympanic membrane and external ear normal. Left Ear: Tympanic membrane and external ear normal. Nose: Rhinorrhea present. No nasal deformity. Right Sinus: No maxillary sinus tenderness or frontal sinus tenderness. Left Sinus: No maxillary sinus tenderness or frontal sinus tenderness. Mouth/Throat: Mouth: Mucous membranes are moist. No injury. Pharynx: No oropharyngeal exudate or posterior oropharyngeal erythema. Comments: Apthous ulcers left posterior upper palate, and left inner cheek. Cardiovascular: Heart sounds: Normal heart sounds. Pulmonary: Breath sounds: Normal breath sounds. Musculoskeletal: Cervical back: No tenderness. Lymphadenopathy: Cervical: No cervical adenopathy. Skin: Findings: Rash present. Comments: 1) Vertex scalp with raised elongated shiny nodules. 2) Non erythematous papules of the left forehead which was not painful or pruritic but acute per patient. No vesicular rash. Neurological: General: No focal deficit present. Mental Status: He is alert. Cranial Nerves: No cranial nerve deficit. Sensory: No sensory deficit. Motor: No weakness. Gait: Gait normal. Assessment and Plan 1. Injury of head, initial encounter - ICD9: 959.01, ICD10: S09.90XA (primary diagnosis) Rest. Tylenol as needed. Hydration. 2. Type 2 diabetes mellitus with stage 3a chronic kidney disease, without long- term current use of insulin (HCC) - ICD9: 250.40, 585.3, ICD10: E11.22, N18.31 Refilled. - METFORMIN 1,000 MG TABLET 3. Allergic conjunctivitis of both eyes - ICD9: 372.14, ICD10: H10.13 Refilled. - OLOPATADINE 0.1 % EYE DROPS 4. Pure hypercholesterolemia - ICD9: 272.0, ICD10: E78.00 Refilled. - ATORVASTATIN 40 MG TABLET 5. Rash and nonspecific skin eruption - ICD9: 782.1, ICD10: R21 - This did not look herpetiform. - I recommended he schedule with Dr. Maloney. He has skin cancer history and sees them every 6 months. 6. Aphthae, oral - ICD9: 528.2, ICD10: K12.0 Viral. - [id number] ORAL LIQUID ADS Prince Celeste MD [facility]* Diagnosis Injury of head, initial encounter- Primary Type 2 diabetes mellitus with stage 3a chronic kidney disease, without long-term current use of insulin (HCC) Allergic conjunctivitis of both eyes Other chronic allergic conjunctivitis Pure hypercholesterolemia Rash and nonspecific skin eruption Rash and other nonspecific skin eruption Aphthae, oral Oral aphthae documented [facility] encounter [facility] Miscellaneous Notes* Telephone Encounter - Gisselle Craven LPN - 06/25/2023 3:46 PM EST Left message for Patient to contact pharmacy for refill of test strips, new RX sent 06/16/2023. Gisselle Craven LPN * Telephone Encounter - Eva López - 06/22/2023 10:00 AM EST Patient has been identified by name and date of : Yes Requested Prescriptions Pending Prescriptions Disp Refills blood sugar diagnostic (ONETOUCH ULTRA TEST) test strip 100 Strip 3 Sig: Test blood sugar(s) 1 times daily. Dx:E11.9 Insulin: no RX INSTRUCTIONS: Patient aware RX will be sent to pharmacy. No need to notify patient. Eva Ontiveros Pss documented [facility] encounter[facility]02-29-[facility]24 Instructions* Patient Instructions* Emilie Tang - 06/21/2023 1:37 PM EST Diabetes Foot Care Instructions When you have diabetes, proper foot care is very important. Poor foot care may lead to amputation of a foot or leg. As a person with diabetes, you are more vulnerable to foot problems, because diabetes can damage your nerves and reduce blood flow to your feet. Here are some diabetes foot care tips to follow: Wash and Dry Your Feet Daily Use mild soaps Use warm water Pat your skin dry; do not rub. Thoroughly dry your feet. After washing, use lotion on your feet to prevent cracking. Do not put lotion between your toes. Examine Your Feet Each Day Check the tops and bottoms of your feet. Have someone else look at your feet if you cannot see them. Check for dry, cracked skin. Look for blisters, cuts, scratches, or other sores. Check for redness, increased warmth, or tenderness when touching any area of your feet. Check for ingrown toenails, corns, and calluses. If you get a blister or sore from your shoes, do not pop it. Apply a bandage and wear a differentpair of shoes. Take Care of Your Toenails Cut toenails after bathing, when they are soft. Cut toenails straight across and smooth with a nail file. Avoid cutting into the corners of toes. Do not cut cuticles. If you have neuropathy (or decreased sensation in your feet) a budget manager should always cut your toenails. Be Careful When Exercising Walk and exercise in comfortable shoes. Do not exercise when you have open sores on your feet. Protect Your Feet With Shoes and Socks Never go barefoot. Always protect your feet by wearing shoes or hard-soled slippers or footwear. Avoid shoes with high heels and pointed toes. Avoid shoes that expose your toes or heels (such as open-toed shoes or sandals). These types of shoes increase your risk for injury and potential infections. Try on new footwear with the type of socks you usually wear. Do not wear new shoes for more than an hour at a time. Change your socks daily. Look and feel inside your shoes before putting them on to make sure there are no foreign objects orrough areas. Avoid tight socks. Wear natural-fiber socks (cotton, wool, or a cotton-wool blend). Wear special shoes if your health care provider recommends them. Wear shoes/boots that will protect your feet from various weather conditions (cold, moisture, etc.). Make sure your shoes fit properly. If you have neuropathy (nerve damage), you may not notice that your shoes are too tight. Perform the footwear test described below. Footwear Test Use this simple test to see if your shoes fit correctly: Stand on a piece of paper. (Make sure you are standing and not sitting, because your foot changes shape when you stand.) Trace the outline of your foot. Trace the outline of your shoe. Compare the tracings: Is the shoe too narrow? Is your foot crammed into the shoe? The shoe should be at least 1/2 inch longer than your longest toe and as wide as your foot. Proper Shoe Choices The following types of shoes are best for people with diabetes Closed toes and heels Leather uppers without a seam inside At least 1/2 inch extra space at the end of your longest toe Inside of shoe should be soft with no rough areas Outer sole should be made of stiff material Shoes should be at least as wide as your feet Tips for Foot Care in Diabetes Don't wait to treat a minor foot problem if you have diabetes. Follow your health care provider's guidelines and first aid guidelines. Report foot injuries and infections to your health care provider immediately. Check water temperature with your elbow, not your foot. Do not use a heating pad on your feet. Do not cross your legs. Do not self-treat your corns, calluses, or other foot problems. Go to your health care provider or budget manager to treat these conditions. [facility]02[facility] History of Present illness Narrative* Emilie Tang - 06/21/2023 1:31 PM EST Subjective: This 77 year old male presents to clinic for diabetic foot check. Patient admits to being diabetic for 20 years now. Patient +B/T/N in feet at this time. Patient -pain in legs when walking. No other pedal complaints at this time. No change in medications or medical history since last visit. PAIN EVALUATION No data found in the last 1 encounters. Hemoglobin A1C (%) Date Value 05/10/2023 6.6 11/03/2022 7.3 04/28/2022 7.6 11/01/2021 6.9 08/04/2021 7.3 01/27/2021 6.8 08/30/2020 7.1 01/21/2020 6.8 12/09/2018 6.5 06/11/2018 6.6 PCP: Prince Celeste MD PAST MEDICAL HISTORY Diagnosis Date Acute myocardial infarction of other lateral wall ANEMIA NOS 07/20/2008 Hct 32%, MCV 92 in 06-29 Arthritis Bladder cancer (HCC) 05/20/2009 Dr. Singh. CORONARY ATHEROSCLER UNSPEC VESSEL 07/08/2008 Dr. Markham[facility]. 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 Terrazas, [facility]. Type II or unspecified type diabetes mellitus without mention of complication, not stated as uncontrolled 12/06/2004 Unspecified essential hypertension 12/06/2004 Current Outpatient Medications Medication Sig blood sugar diagnostic (aloomaUCH ULTRA TEST) test strip Test blood sugar(s) 1 times daily. Dx:E11.9Insulin: no traZODone (DESYREL) 100 mg tablet Take 1 tablet by mouth daily at bedtime. glipiZIDE (GLUCOTROL XL) 2.5 mg 24 hr tablet Take 1 tablet by mouth every morning. sildenafil (VIAGRA) 100 mg tablet Take 1 tablet by mouth once daily as needed (for ED.). atorvastatin (LIPITOR) 80 mg tablet Take 1 tablet by mouth once daily. (Patient taking differently:Take 40 mg by mouth once daily.) metFORMIN (GLUCOPHAGE) 1,000 mg tablet Take 1 tablet by mouth daily with breakfast. amLODIPine (NORVASC) 10 mg tablet Take 1 tablet by mouth once daily. [facility] olopatadine (PATANOL) 0.1 % ophthalmic solution Use 1 Drop in both eyes twice daily as needed (allergies). cetirizine (ZYRTEC) 10 mg tablet Take 10 mg by mouth once daily. acetaminophen (TYLENOL) 500 mg tablet Take 500 mg by mouth every 8 hours as needed. diclofenac sodium (VOLTAREN) 1 % topical gel Apply 2 g to affected area three times daily as needed(wrist pain). Omeprazole Magnesium (PRILOSEC OTC) 20 mg tablet Take 1 tablet by mouth daily before breakfast. 1/2hr before meal. nitroglycerin sublingual (NITROQUICK) 0.4 mg SL tablet Dissolve 0.4 mg under the tongue every 5 minutes as needed. metoprolol tartrate, short acting, (LOPRESSOR) 50 mg tablet Take 1 tablet by mouth twice daily. tamsulosin (FLOMAX) 0.4 mg Take 1 capsule by mouth daily at bedtime. Dr. Singh. THERAPEUTIC MULTIVITAMIN TAB Take one(1) tablet daily. No current facility-administered medications for this visit. ALLERGIES Allergen Reactions Keflex [Cephalexin] Rash Rash and itching.Pt told by to discontinue Keflex immediately. Ofloxacin Hives ofloxacin ear drops Penicillins Rash PAST SURGICAL HISTORY Procedure Laterality Date COLONOSCOPY FLX DX W/COLLJ SPEC WHEN PFRMD 03/25/2004 Colonoscopy COLONOSCOPY FLX DX W/COLLJ SPEC WHEN PFRMD 04/07/2016 normal 10 year follow up CORONARY ARTERY BYP W/VEIN & ARTERY GRAFT 4 VEIN CABG, 5 vessel CYSTO W/REMOVAL OF TUMORS SMALL 04/21/2009 Excision bladder tumor CYSTOURETHROSCOPY Cystoscopy annually last 2016 DIABETES with stage 3 kidney disease ESOPHAGOGASTRODUODENOSCOPY TRANSORAL DIAGNOSTIC 03/25/2004 EGD LEFT HEART CATH 05/12/2014 Left ventriculogram, coronary arteriography, SVG angiography, SALLY arteriography LEFT HEART CATH,PERCUTANEOUS 06/2009 Cardiac cath, L heart PAST SURGICAL HISTORY OF 11/21/2005 excision lymph node right side neck PAST SURGICAL HISTORY OF 1967 Left forearm ORIF fracture. REVISE MEDIAN N/CARPAL TUNNEL SURG Right 06/09/2021 Right carpal tunnel release RPR 1ST INGUN HRNA AGE 5 YRS/> REDUCIBLE 2000 Hernia repair, inguinal RPR 1ST INGUN HRNA AGE 5 YRS/> REDUCIBLE 12/17/2012 Hernia repair, inguinal SKIN BIOPSY HX TONSILLECTOMY & ADENOIDECTOMY <AGE 12 FAMILY HISTORY Problem Relation Age of Onset Coronary Artery Disease Mother Diabetes Mother Heart Father Diabetes Father Diabetes Sister Cataract Sister Stroke Sister Blindness Sister Cancer Brother esophageal Coronary Artery Disease Brother Diabetes Brother Social History Tobacco Use Smoking status: Former Packs/day: 1.00 Years: 20.00 Additional pack years: 0.00 Total pack years: 20.00 Types: Cigarettes Start date: 04/23/1959 Quit date: 04/23/1979 Years since quittin.1 Smokeless tobacco: Never Vaping Use Vaping Use: Never used Substance Use Topics Alcohol use: No Drug use: No REVIEW OF SYSTEMS GENERAL: Negative for Malaise, significant weight loss, fever RESPIRATORY: Negative for cough, wheezing and shortness of breath CARDIOVASCULAR: Negative for chest pain, leg swelling and palpitations GI: Negative for abdominal discomfort, blood in stools or black stools and change in bowel habits : Negative for dysuria, frequency and incontinence MUSCULOSKELETAL: Negative for joint pain or swelling, back pain, and muscle pain. SKIN: Negative for lesions, rash, and itching. HEMATOLOGY/LYMPHOLOGY Negative for prolonged bleeding, bruising easily, and swollen nodes. ENDOCRINE: Negative for cold or heat intolerance, polyuria, polydipsia and goiter. NEURO: negative The remainder of the review of systems is noncontributory. Objective: Patient presents to clinic ambulating in [facility] Constitutional: Pt is a well developed 77 year old male who is alert, oriented, cooperative and in no apparent distress. Eyes: Following during examination. No redness or drainage. Respiratory: RR normal and nonlabored. Even breathing. No evidence of distress. Psychology: Patient is engaged during conversation. Normal affect and mood. Does not appear depressed or anxious. Vasc: DP and PT pulses are palpable bilateral. CFT is less than 5 seconds bilateral. Skin temperature is warm to warm proximal to distal bilateral. There is no edema or varicosities noted. Hair growth present. Neuro: Protective sensation is intact to the foot and toes when tested with the 5.07 SWM bilateral.Vibratory sensation is decreased at the hallux bilateral. + Significant neurological defecits. Derm: Inspection and palpation performed. Nails 1-5 b/l are normal in length and thickness. Non ingrown is noted. Skin is of normal turgor and texture. Hyperkeratosis noted to b/l 5th metatarsal. NO ulcerations, scars, verruca or other lesions noted. Ortho: Ankle joint DF is full with the knee extended and full with knee flexed. No pain or crepitusnoted. STJ, MTJ ROM are full and free of pain or crepitus. Muscle strength is 5/5 for dorsiflexors,plantarflexors, inverters, everters. Digital deformities include none. Assessment: (E11.49) Other diabetic neurological complication associated with type 2 diabetes mellitus (HCC) (primary encounter diagnosis) (L85.9) Hyperkeratosis Plan: 1. Patient was seen and evaluated. 2. Patient was instructed on the continued importance of diabetic foot care along with proper diet and keeping their blood sugar under control to prevent complications. Instructions given both oral and written. 3. Small callus to b/l 5th metatarsal reduced with dremmel 4. No ingrown currently. If he develops pain to sides of b/l hallux nail, could consider partial nail matrixectomy 5. F/u in one year Emilie Tang DPM * Chichi Hartley RN - 06/21/2023 1:11 PM EST Patient presents with: Left Foot - Established Patient, Diabetic Foot Check Right Foot - Established Patient, Diabetic Foot Check [facility] Miscellaneous Notes* Telephone Encounter - Mt Cox LPN - 06/15/2023 1:15 PM EST Patient has been identified by name and date of : Yes Patient phones for refill(s): Requested Prescriptions Pending Prescriptions Disp Refills blood sugar diagnostic (ONETOUCH ULTRA TEST) test strip 100 Strip 3 Sig: Test blood sugar(s) 1 times daily. Dx:E11.9 Insulin: no Date of last office visit in primary care: 05/14/23 Date of next office visit in primary care: 11/12/23 Please advise. Thank you. Mt Cox LPN. * Telephone Encounter - Sarahy Lewis - 06/15/2023 8:38 AM EST Patient has been identified by name and date of : Yes, Provider Prince Celeste MD Date 06/15/2023 Time 8:40 am Spouse phones for refill(s): Requested Prescriptions Pending Prescriptions Disp Refills blood sugar diagnostic (ONETOUCH ULTRA TEST) test strip 100 Strip 3 Sig: Test blood sugar(s) 1 times daily. Dx:E11.9 Insulin: no Date of last office visit in primary care: 05/14/2023 Date of next office visit in primary care: 11/12/2023 Onetouch ultra blue test strips testing once daily Please advise. Thank you. Sarahy Soto. documented in [facility] encounterGal[facility]12-[facility]23 Instructions* Patient Instructions* Marychuy Blackwell APRN.TEXTILE PIN WORKER - 04/12/2023 10:34 AM EST covid and influenza test ordered You will be notified in 12-24 hours, results available on [facility] Home isolation until results are back Rest, increase water intake Motrin or Tylenol as needed for fever or pain. Salt water gargles, chloraseptic spray or lozenges as needed for sore throat. Warm beverages, honey. Nasal saline spray as needed Cool mist humidifier at night Tylenol (generic acetaminophen) 500 mg-2 tabs every 8 hrs. as needed for fever and aches Ibuprofen 600 mg (3-200mg tablets) every 6 hours -Mucinex (generic is fine) Guaifenesin 1200 mg twice daily to help with cough and to thin out mucus * Seek medical care immediately, call 911, go to ER if you have chest pain, difficulty breathing, shortness of breath, inability to swallow. documented in this encounterGal[facility]12-21-[facility]23 History of Present illness Narrative* Marychuy Blackwell APRN.CNP - 04/12/2023 10:17 AM EST Subjective The history is provided by the patient. No bus steward was used. HPI Seda Menchaca is a 77 year old male who presents today for CC of cough of 3 days. She is also having sore throat and runny nose. He has used otc cough medication. Exposure - none known. 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 Singh. CORONARY ATHEROSCLER UNSPEC VESSEL 07/08/2008 Dr. Markham, [facility]. 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 Terrazas, [facility]. Type II or unspecified type diabetes mellitus without mention of complication, not stated as uncontrolled 12/06/2004 Unspecified essential hypertension 12/06/2004 I have confirmed and edited as necessary, the [facility] Review of Systems Constitutional: Positive for chills and malaise/fatigue. Negative for fever. HENT: Positive for congestion, sinus pain and sore throat. Negative for ear pain. Respiratory: Positive for cough. Negative for sputum production, shortness of breath and wheezing. Cardiovascular: Negative for chest pain. Gastrointestinal: Negative for abdominal pain, diarrhea, nausea and vomiting. Musculoskeletal: Positive for myalgias. Neurological: Negative for headaches. Objective Physical Exam Vitals and nursing note reviewed. Constitutional: Appearance: He is not toxic-appearing. HENT: Head: Normocephalic and atraumatic. Right Ear: Tympanic membrane, ear canal and external ear normal. Left Ear: Tympanic membrane, ear canal and external ear normal. Nose: Mucosal edema, congestion and rhinorrhea present. Right Sinus: No maxillary sinus tenderness or frontal sinus tenderness. Left Sinus: No maxillary sinus tenderness or frontal sinus tenderness. Mouth/Throat: Pharynx: Uvula midline. Posterior oropharyngeal erythema (mild) present. No oropharyngeal exudate. Tonsils: No tonsillar abscesses. Cardiovascular: Rate and Rhythm: Normal rate and regular rhythm. Heart sounds: Normal heart sounds. Pulmonary: Effort: Pulmonary effort is normal. Breath sounds: Normal breath sounds. No decreased breath sounds, wheezing, rhonchi or rales. Lymphadenopathy: Head: Right side of head: No submental, submandibular, tonsillar or preauricular adenopathy. Left side of head: No submental, submandibular, tonsillar or preauricular adenopathy. Cervical: No cervical adenopathy. Right cervical: No superficial cervical adenopathy. Left cervical: No superficial cervical adenopathy. Neurological: Mental Status: He is alert. ASSESSMENT/PLAN: 1. URI with cough and congestion - ICD9: 465.9, ICD10: J06.9 (primary diagnosis) - Discussed viral etiology and rationale for treatment. - Symptomatic treatment with prn analgesia - Supportive care with fluids and rest - COVID & INFLUENZA A/B & RSV NAAT, ROUTINE 2. Sore throat - ICD9: 462, ICD10: J02.9 - suspect viral - Group A strep molecular testing negative - Discussed supportive care treatment with fluids, rest and analgesia. - The patient may also use warm salt water gargles, throat lozenges and/or OTC throat spray as needed. - The patient should follow up in one week if symptoms persist or worsen - Call back if drooling, increased temperature, symptoms of dehydration and/or still sick in one week - STREP A MOLECULAR (POC) - COVID & INFLUENZA A/B & RSV NAAT, ROUTINE 3. Flu-like symptoms - ICD9: 780.99, ICD10: R68.89 Home isolation Testing ordered Comfort measures discussed - see patient instructions. When to seek higher level of care Notified in 12-24 hours with results, available on [employer] - COVID & INFLUENZA A/B & RSV NAAT, ROUTINE Diagnosis and treatment plan were discussed and questions were answered to the patient's satisfaction. Pt acknowledged understanding of concepts and follow up plan. Specific signs and symptoms that would indicate the need for higher level of care were discussed indetail warranting prompt ER evaluation. Marychuy Blackwell APRN.JAYY documented in this encounterGalion Hospital12-01-2023 Miscellaneous Notes* Telephone Encounter - Destinee Bailon OCCA - 03/23/2023 1:10 PM EST TC to patient and spouse answered. She verbalized understanding and will relay message to patient. Nothing further at this time. JAMES Bergeron * Telephone Encounter - Prince Celeste MD - 03/23/2023 12:31 PM EST ASSESSMENT/PLAN: 1. Type 2 diabetes mellitus with stage 3a chronic kidney disease, without long- term current use of insulin (HCC) - ICD9: 250.40, 585.3, ICD10: E11.22, N18.31 - GLIPIZIDE ER 2.5 MG TABLET, EXTENDED RELEASE 24 HR. Take one(1) tablet daily in the morning. - Looks like he stopped filling Farxiga in December. - Fasting labs for appointment next month. Prince Celeste MD * Telephone Encounter - Harika Richardson LPN - 03/22/2023 10:41 AM EST Patient calling said he would like to go off the Farxiga. Patient said the cost keeps going up, nowup to 51 dollars a month for his out of pocket expense. Patient asking if Dr Celeste has another medication that would be cheaper? [facility] if needed. Please advise documented in this encounterGal[facility]12-[facility]23 Evaluation note* Diagnosis Type 2 diabetes mellitus with stage 3a chronic kidney disease, without long-term current use of insulin (HCC)- Primary [facility] History of Present illness Narrative* Oliver Gill APRN.TEXTILE PIN WORKER - 01/07/2023 9:32 AM EDT Subjective HPI HPI Seda Menchaca is a 77 year old male who presents today for CC of concerns cotton swab stuckin right ear. This started 1 day ago. Has tried pulling it out but could not get it. Symptoms are worsened by nothing. Risk factors hx of right tm perforation, so puts cotton swab in to protect rightear. Denies ear pain, drainage. 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 Singh. CORONARY ATHEROSCLER UNSPEC VESSEL 07/08/2008 Dr. Markham[facility]. 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. Type II or unspecified type diabetes mellitus without mention of complication, not stated as uncontrolled 12/06/2004 Unspecified essential hypertension 12/06/2004 PAST SURGICAL HISTORY Procedure Laterality Date COLONOSCOPY FLX DX W/COLLJ SPEC WHEN PFRMD 03/25/2004 Colonoscopy COLONOSCOPY FLX DX W/COLLJ SPEC WHEN PFRMD 04/07/2016 normal 10 year follow up CORONARY ARTERY BYP W/VEIN & ARTERY GRAFT 4 VEIN CABG, 5 vessel CYSTO W/REMOVAL OF TUMORS SMALL 04/21/2009 Excision bladder tumor CYSTOURETHROSCOPY Cystoscopy annually last 2016 DIABETES with stage 3 kidney disease ESOPHAGOGASTRODUODENOSCOPY TRANSORAL DIAGNOSTIC 03/25/2004 EGD LEFT HEART CATH 05/12/2014 Left ventriculogram, coronary arteriography, SVG angiography, SALLY arteriography LEFT HEART CATH,PERCUTANEOUS 06/2009 Cardiac cath, L heart PAST SURGICAL HISTORY OF 11/21/2005 excision lymph node right side neck PAST SURGICAL HISTORY OF 1967 Left forearm ORIF fracture. REVISE MEDIAN N/CARPAL TUNNEL SURG Right 06/09/2021 Right carpal tunnel release RPR 1ST INGUN HRNA AGE 5 YRS/> REDUCIBLE 2000 Hernia repair, inguinal RPR 1ST INGUN HRNA AGE 5 YRS/> REDUCIBLE 12/17/2012 Hernia repair, inguinal SKIN BIOPSY HX TONSILLECTOMY & ADENOIDECTOMY <AGE 12 ALLERGIES Keflex [Cephalexin], Ofloxacin, and Penicillins MEDICATIONS traZODone (DESYREL) 100 mg tablet Take 1 tablet by mouth daily at bedtime. dapagliflozin propanediol (FARXIGA) 5 mg tablet Take 1 tablet by mouth once daily. Take one daily in the morning atorvastatin (LIPITOR) 80 mg tablet Take 1 tablet by mouth once daily. metFORMIN (GLUCOPHAGE) 1,000 mg tablet Take 1 tablet by mouth daily with breakfast. blood sugar diagnostic ([place] ULTRA TEST) test strip Test blood sugar(s) 1 times daily. Dx:E11.9Insulin: no sildenafil (VIAGRA) 100 mg tablet Take 1 tablet by mouth once daily as needed (for ED.). amLODIPine (NORVASC) 10 mg tablet Take 1 tablet by mouth once daily. [facility] olopatadine (PATANOL) 0.1 % ophthalmic solution Use 1 Drop in both eyes twice daily as needed (allergies). hydrocortisone (HYTONE,CETACORT) 1 % lotion Apply to affected area twice daily. Using for current rash on chest and underarms cetirizine (ZYRTEC) 10 mg tablet Take 10 mg by mouth once daily. acetaminophen (TYLENOL) 500 mg tablet Take 500 mg by mouth every 8 hours as needed. diclofenac sodium (VOLTAREN) 1 % topical gel Apply 2 g to affected area three times daily as needed(wrist pain). Omeprazole Magnesium (PRILOSEC OTC) 20 mg tablet Take 1 tablet by mouth daily before breakfast. 1/2hr before meal. nitroglycerin sublingual (NITROQUICK) 0.4 mg SL tablet Dissolve 0.4 mg under the tongue every 5 minutes as needed. metoprolol tartrate, short acting, (LOPRESSOR) 50 mg tablet Take 1 tablet by mouth twice daily. tamsulosin (FLOMAX) 0.4 mg Take 1 capsule by mouth daily at bedtime. Dr. Singh. THERAPEUTIC MULTIVITAMIN TAB Take one(1) tablet daily. FAMILY HISTORY Problem Relation Age of Onset Coronary Artery Disease Mother Diabetes Mother Heart Father Diabetes Father Diabetes Sister Cataract Sister Stroke Sister Blindness Sister Cancer Brother esophageal Coronary Artery Disease Brother Diabetes Brother Social History Tobacco Use Smoking status: Former Packs/day: 1.00 Years: 20.00 Additional pack years: 0.00 Total pack years: 20.00 Types: Cigarettes Start date: 04/23/1959 Quit date: 04/23/1979 Years since quittin.7 Smokeless tobacco: Never Vaping Use Vaping Use: Never used Substance Use Topics Alcohol use: No Drug use: No ROS Objective Blood pressure 132/80, pulse 62, temperature (!) 35.9 C (96.7 F), resp. rate 21, weight 65.4 kg (144 lb 3.2 oz), SpO2 95 %. Physical Exam Constitutional: General: He is not in acute distress. Appearance: He is not toxic-appearing or diaphoretic. HENT: Head: Normocephalic and atraumatic. Right Ear: Hearing and external ear normal. Tympanic membrane is perforated (large, central. no drainage.). Left Ear: Hearing, tympanic membrane, ear canal and external ear normal. Nose: Nose normal. Pulmonary: Effort: Pulmonary effort is normal. No accessory muscle usage or respiratory distress. Neurological: Mental Status: He is alert and oriented to person, place, and time. ASSESSMENT/PLAN: 1. Feared condition not demonstrated - ICD9: V65.5, ICD10: Z71.1 Must have fallen out. No abrasion noted. Discussed using ear plugs vs cotton swabs to make removal easier. Return for any s/s. Oliver Gill APRN.JAYY documented in this encounterGal[facility]07-19-[facility]23 Instructions* Patient Instructions* Prince Celeste MD - 11/08/2022 2:36 PM EDT Recombinant shingles vaccine (Shingrix) is recommended; 2 doses 2-6 months apart. Please read information, check with your insurance, and schedule vaccination at your local pharmacy. A prescription is not required. If you are certain you have coverage to receive this vaccine in the office, we can schedule this for you. Advance Directive Forms Advanced Directives Forms (Macanese) FORMS: [email or web address] INFORMATIONAL BROCHURE: [email or web address]=en Advance Directives (non-Macanese) FORMS: [email or web address] Please bring completed forms to your next appointment or email them to . Patient Resources How to Get Started Talking with Loved Ones about your Wishes at the End of Life [email or web address] How to Navigate Conversations with your Care Team around your Preferences [email or web address] documented in this encounterGalion Hospital07-19-2023 History of Present illness Narrative* Prince Celeste MD - 11/08/2022 2:20 PM EDT This note was created using GoSportyter. Subjective Seda Menchaca is a 76 year old male. DM was improving, and so was his chronic kidney disease. Lipids were controlled. He had a persistent sore spot at the bottom of his left foot. Insomnia was not much better, but then again, his went to bed habitually at 2AM. He usually work up for no reason after 3-4 hours. Review of Systems Constitutional: Negative for fatigue and unexpected weight change. HENT: Negative for congestion. Eyes: Negative for visual disturbance. Respiratory: Negative for cough, shortness of breath and wheezing. Cardiovascular: Negative for chest pain, palpitations and leg swelling. Gastrointestinal: Negative for abdominal pain, diarrhea, nausea and vomiting. Genitourinary: Negative for difficulty urinating, dysuria and frequency. Neurological: Negative for dizziness and headaches. Psychiatric/Behavioral: Positive for sleep disturbance. Negative for dysphoric mood. ACTIVE PROBLEM LIST Essential Hypertension Type 2 Diabetes Mellitus With Stage 3 Chronic Kidney Disease, Without Long-Term Current Use of Insulin (Hcc) Pure Hypercholesterolemia Impotence of Organic Origin Coronary Atherosclerosis Gerd (Gastroesophageal Reflux Disease) Bladder Cancer (Hcc) Osteoarthritis Lumbago With Sciatica, Unspecified Side Cervicalgia of [place] Squamous Cell Cancer of Scalp and Skin of Neck Arthritis of Hand Hypertensive Kidney Disease With Stage 3 Chronic Kidney Disease (Hcc) Current Outpatient Medications Medication Sig dapagliflozin (FARXIGA) 5 mg tablet Take 1 tablet by mouth once daily. Take one daily in the morning atorvastatin (LIPITOR) 80 mg tablet Take 1 tablet by mouth once daily. metFORMIN (GLUCOPHAGE) 1,000 mg tablet Take 1 tablet by mouth daily with breakfast. blood sugar diagnostic (aloomaUCH ULTRA TEST) test strip Test blood sugar(s) 1 times daily. Dx:E11.9Insulin: no sildenafil (VIAGRA) 100 mg tablet Take 1 tablet by mouth once daily as needed (for ED.). amLODIPine (NORVASC) 10 mg tablet Take 1 tablet by mouth once daily. [facility] olopatadine (PATANOL) 0.1 % ophthalmic solution Use 1 Drop in both eyes twice daily as needed (allergies). hydrocortisone (HYTONE,CETACORT) 1 % lotion Apply to affected area twice daily. Using for current rash on chest and underarms cetirizine (ZYRTEC) 10 mg tablet Take 10 mg by mouth once daily. acetaminophen (TYLENOL) 500 mg tablet Take 500 mg by mouth every 8 hours as needed. diclofenac sodium (VOLTAREN) 1 % topical gel Apply 2 g to affected area three times daily as needed(wrist pain). Omeprazole Magnesium (PRILOSEC OTC) 20 mg tablet Take 1 tablet by mouth daily before breakfast. 1/2hr before meal. nitroglycerin sublingual (NITROQUICK) 0.4 mg SL tablet Dissolve 0.4 mg under the tongue every 5 minutes as needed. metoprolol tartrate, short acting, (LOPRESSOR) 50 mg tablet Take 1 tablet by mouth twice daily. tamsulosin (FLOMAX) 0.4 mg Take 1 capsule by mouth daily at bedtime. Dr. Singh. THERAPEUTIC MULTIVITAMIN TAB Take one(1) tablet daily. No current facility-administered medications for this visit. Objective BP 112/60 (BP Site: Right Arm, BP Position: Sitting, BP Cuff Size: Large Adult) Pulse (!) 56 Resp 20 Ht 162.6 cm (5' 4) Wt 66.2 kg (146 lb) BMI 25.06 kg/m Physical Exam Constitutional: General: He is not in acute distress. Appearance: He is not ill-appearing. HENT: Ears: Comments: Small area of intertrigo beneath right earlobe. Eyes: Extraocular Movements: Extraocular movements intact. Conjunctiva/sclera: Conjunctivae normal. Cardiovascular: Rate and Rhythm: Normal rate and regular rhythm. Heart sounds: No murmur heard. No gallop. Pulmonary: Breath sounds: Normal breath sounds. Musculoskeletal: Cervical back: Neck supple. Right lower leg: No edema. Left lower leg: No edema. Comments: Tender plantar wart left 5th MTP joint. Neurological: Mental Status: He is alert. Gait: Gait normal. Component Latest Ref Rng & Units 11/03/2022 Protein, Total 6.3 - 8.0 g/dL 6.8 Albumin 3.9 - 4.9 g/dL 4.1 Calcium 8.5 - 10.2 mg/dL 9.8 Bilirubin, Total 0.2 - 1.3 mg/dL 0.5 Alkaline Phosphatase 38 - 113 U/L 65 AST 14 - 40 U/L 24 ALT 10 - 54 U/L 20 Glucose 74 - 99 mg/dL 143 (H) BUN 9 - 24 mg/dL 21 Creatinine 0.73 - 1.22 mg/dL 1.59 (H) Sodium 136 - 144 mmol/L 137 Potassium 3.7 - 5.1 mmol/L 4.1 Chloride 97 - 105 mmol/L 100 CO2 22 - 30 mmol/L 27 Anion Gap 9 - 18 mmol/L 10 eGFR >=60 mL/min/1.73m 45 (L) Hemoglobin A1C 4.3 - 5.6 % 7.3 (H) Estimated Average Glucose mg/dL 163 Glucose meter data or log was reviewed for the past month. Range: 114-134. Average: 124. Patient was testing daily. Assessment and Plan 1. Medicare annual wellness visit, subsequent - ICD9: V70.0, ICD10: Z00.00 (primary diagnosis) See wellness note. - DEPRESSION SCREENING/ASSESSMENT - ADVANCE CARE PLAN DISCUSSION 2. Insomnia, unspecified type - ICD9: 780.52, ICD10: G47.00 Dose increased. Discussed medication dosage, usage, goals of therapy, and side effects. - TRAZODONE 100 MG TABLET 3. Type 2 diabetes mellitus with stage 3b chronic kidney disease, without long- term current use of insulin (HCC) - ICD9: 250.40, 585.3, ICD10: E11.22, N18.32 - Improving control - Continue current medications - DAPAGLIFLOZIN PROPANEDIOL 5 MG TABLET. This is maximal dose for his kidney function. - CBC - BASIC METABOLIC PNL - HGB A1C 4. Essential hypertension - ICD9: 401.9, ICD10: I10 - Controlled 5. Impotence of organic origin - ICD9: 607.84, ICD10: N52.9 Continue VIAGRA. 6. Malignant neoplasm of urinary bladder, unspecified site (HCC) - ICD9: 188.9, ICD10: C67.9 No evidence of disease per his urologist. 7. Plantar wart of left foot - ICD9: 078.12, ICD10: B07.[address] Tang. 8. Need for COVID-19 vaccine - ICD9: V04.89, ICD10: Z23 - PFIZER-BIONTECH COVID-19 BIVALENT VACCINE, AGE 12+ YR Prince Celeste MD * Prince Celeste MD - 11/08/2022 2:08 PM EDT Seda Menchaca is a 76 year old male here for a Medicare Subsequent Annual Wellness Visit Health Risk Assessment In general, health is: Good Concerns with balance:Not at all Concerns with teeth or dentures:Not at all Concerns with sexual function:More than half the days [place] anxious, stressed, angry, irritable, lonely, isolated, or had thoughts of hurting themself: Several days Has little interest or pleasure in doing things: Several days Bothered by feeling down, depressed, or hopeless: Several days Needs help with grocery shopping, cooking, housework, bathing, grooming, dressing, eating, sitting or standing, walking, using the toilet, handling finances, taking medications, using the telephone, or driving: No Following safety precautions in the home environment and vehicle: removed throw rugs from floors, installed grab bars in the bathroom, handrails in stairwells, having adequate lighting, wearing seatbelt at all times?: Yes Smokes cigarettes, vapes, or chew tobacco: No Eats healthy foods including fruits, vegetables, whole grains, and fiber-rich foods: Nearly every day Number of days per week engages in exercise: 3 days Average alcohol consumption: Never Current Providers Specialists: I have reviewed specialist-related care of the patient in the medical record. Current care team: Patient Care Team: Prince Celeste MD as PCP - General Dr. Fox, cardiology, [facility]. Dr. Singh, urology. Dr. Bailey, optometry. Dr Terrazas, [facility]. Dr. Karmen Delgado, [facility]. Dr. Karmen Diamond, nephrology. Medical/Family history review Reviewed and updated problem list, medical/surgical/family/social history, medications, and allergies. Opioid use review Patient is not currently using opioids. Depression screening Depression Screening PHQ-2 Score PHQ-9 Score 11/07/2021 0 - Depression screening tool completed and reviewed. Based on score and interview, patient is not at risk for depression. Screening tool discussed with patient, and I recommended no further interventionat this time. Cognitive screening Mini Cog Score: 5 Cognitive screening reviewed and no further action needed (score 3-5) Functional Observation Was the patient's timed Up & Go test unsteady or ? 12 seconds? No Advance Care Planning End of Life planning discussed, including patient's advanced directive wishes: Yes Measurements BP 112/60 Pulse 56 Resp 20 Ht 5' 4 (1.63m) Wt 146 lb (66.2kg) BMI 25.05 kg/(m^2). Visual acuity (required for Welcome to Medicare): follows with optometry/ophthalmology and Right: 20/70 Left: 20/ 7- Both: 20/40 Hearing Evaluation: within normal limits Assessment/Plan - Counseled on healthy diet and regular exercise - Discussed need for and benefit of weight loss. BMI 25.06 kg/(m^2) - Fall avoidance - Vaccines recommended COVID-19 - Depression screening documented in this encounterGal[facility]06-07-2023 History of Present illness Narrative* Patrice Olmos MD - 09/27/2022 1:52 PM EDT Patient presents with: Elbow Injury: into left arm, pain and stiffness x 2-3 days, yard work HPI: Left elbow pain: Duration: 3 days Location: back and lateral left elbow Character: aching and sharp Radiation: No. Aggravating: bending, touching Relieving: Pain relievers: Associated: swelling, left wrist carpal tunnel, past similar issue, had been doing yard work Pertinent negatives: Denies fall, known injury. Saw Dr Diamond today for kidney disease. Has diabetes and CAD. PAST MEDICAL HISTORY Diagnosis Date Acute myocardial infarction of other lateral wall ANEMIA NOS 07/20/2008 Hct 32%, MCV 92 in 06-29 Arthritis Bladder cancer (HCC) 05/20/2009 Dr. Singh. CORONARY ATHEROSCLER UNSPEC VESSEL 07/08/2008 Dr. Markham[facility]. 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 Terrazas, [facility]. Type II or unspecified type diabetes mellitus without mention of complication, not stated as uncontrolled 12/06/2004 Unspecified essential hypertension 12/06/2004 MEDICATIONS: dapagliflozin (FARXIGA) 5 mg tablet Take 1 tablet by mouth once daily. Take one daily in the morning atorvastatin (LIPITOR) 80 mg tablet Take 1 tablet by mouth once daily. metFORMIN (GLUCOPHAGE) 1,000 mg tablet Take 1 tablet by mouth daily with breakfast. blood sugar diagnostic (aloomaUCH ULTRA TEST) test strip Test blood sugar(s) 1 times daily. Dx:E11.9Insulin: no traZODone (DESYREL) 50 mg tablet Take 1 tablet by mouth at bedtime as needed (insomnia.). sildenafil (VIAGRA) 100 mg tablet Take 1 tablet by mouth once daily as needed (for ED.). amLODIPine (NORVASC) 10 mg tablet Take 1 tablet by mouth once daily. [facility] olopatadine (PATANOL) 0.1 % ophthalmic solution Use 1 Drop in both eyes twice daily as needed (allergies). hydrocortisone (HYTONE,CETACORT) 1 % lotion Apply to affected area twice daily. Using for current rash on chest and underarms cetirizine (ZYRTEC) 10 mg tablet Take 10 mg by mouth once daily. acetaminophen (TYLENOL) 500 mg tablet Take 500 mg by mouth every 8 hours as needed. diclofenac sodium (VOLTAREN) 1 % topical gel Apply 2 g to affected area three times daily as needed(wrist pain). Omeprazole Magnesium (PRILOSEC OTC) 20 mg tablet Take 1 tablet by mouth daily before breakfast. 1/2hr before meal. nitroglycerin sublingual (NITROQUICK) 0.4 mg SL tablet Dissolve 0.4 mg under the tongue every 5 minutes as needed. metoprolol tartrate, short acting, (LOPRESSOR) 50 mg tablet Take 1 tablet by mouth twice daily. tamsulosin (FLOMAX) 0.4 mg Take 1 capsule by mouth daily at bedtime. Dr. Singh. THERAPEUTIC MULTIVITAMIN TAB Take one(1) tablet daily. ALLERGIES: ALLERGIES Allergen Reactions Keflex [Cephalexin] Rash Rash and itching.Pt told by to discontinue Keflex immediately. Ofloxacin Hives ofloxacin ear drops Penicillins Rash VITALS: BP 122/70 Pulse 72 Temp 36.7 C (98.1 F) Resp 16 Wt 65.8 kg (145 lb) SpO2 96% BMI 24.43 kg/m PE: Pleasant, in no acute distress. Elbow: left. Mild edema without erythema over the olecranon to lateral epicondyle, tender in both areas. Hypertrophy of wrist joint. Loss of 1/2 supination ROM. Near normal elbow flexion/extension. No shoulder or forearm tenderness. Component Latest Ref Rng & Units 04/28/2022 Hemoglobin A1C 4.3 - 5.6 % 7.6 (H) Component Latest Ref Rng & Units 04/28/2022 eGFR >=60 mL/min/1.73m 40 (L) ASSESSMENT/PLAN: 1. Elbow pain, left - ICD9: 719.42, ICD10: M25.522 - XR ELBOW SPECIAL VIEWS AP/LAT/OTHER LEFT - degenerative changes. IMPRESSION: While no definite fracture is identified, there is a suggestion of a small effusion. An occult fracture could be present. Lower dose/duration steroid taper because of DM. Avoid NSAIDs because of CKD and CAD. Follow up with orthopedics if pain persists. Patrice Olmos MD documented in this encounterGalion Hospital04-24-2023 Miscellaneous Notes* Telephone Encounter - Philomena Tatum RN - 08/14/2022 10:41 AM EDT Patient has been identified by name and date of : Yes, Provider Dr Celeste Date 08/14/22 [id number]. Patient phones for refill(s): Requested Prescriptions Pending Prescriptions Disp Refills metFORMIN (GLUCOPHAGE) 1,000 mg tablet 90 tablet 3 Sig: Take 1 tablet by mouth daily with breakfast. Date of last office visit in primary care: 05/04/22 Future visit: 11/08/22 Last 2 Encounter Wt Readings: Date: Wt: 05/04/2022 67.1 kg (148 lb) 04/20/2022 68 kg (150 lb) Previous labs/tests for medication: Diabetes: Hemoglobin A1C (%) Date Value 04/28/2022 7.6 11/01/2021 6.9 01/27/2021 6.8 08/30/2020 7.1 Please advise. Thank you. Philomena Tatum RN documented in this encounterGalion Hospital04-24-2023 Evaluation note* Diagnosis Type 2 diabetes mellitus with stage 3a chronic kidney disease, without long-term current use of insulin (HCC) documented [facility] this encounter [facility] History of Present illness Narrative* Marifer Baez Pharm-T - 07/19/2022 9:38 AM EDT Seda Menchaca is identified through a medication adherence outreach initiative based on pharmacy claims data from [employer] (insurer) for Non-insulin DM medication(s). Patient is reviewed 07/19/22 due to medication adherence concerns with the following medications (name, strength, sig): Farxiga 5 mg 1 tablet every day . Per data/report, last fill date and days supply: NA Per reconcile dispense, last fill date and days supply: 06/13/2022 for 30 days Per call to pharmacy, last picked up date and days supply: NA Contacted patient: No answer; left generic VM Marifer Baez Pharm-T documented in this encounterGalion Hospital02-13-2023 Miscellaneous Notes* Telephone Encounter - Diana Short - 06/05/2022 11:44 AM EST Patient has been identified by name and date of : Yes Requested Prescriptions Pending Prescriptions Disp Refills blood sugar diagnostic (ONETOUCH ULTRA TEST) test strip 100 Strip 3 Sig: Test blood sugar(s) 1 times daily. Dx:E11.9 Insulin: no traZODone (DESYREL) 50 mg tablet 30 tablet 0 Sig: Take 1 tablet by mouth at bedtime as needed (insomnia.). RX INSTRUCTIONS: Patient aware RX will be sent to pharmacy. No need to notify patient. Diana Short documented in this encounterGalion Hospital02-01-2023 Instructions* Patient Instructions* Emilie Tang - 05/24/2022 2:25 PM EST Diabetes Foot Care Instructions When you have diabetes, proper foot care is very important. Poor foot care may lead to amputation of a foot or leg. As a person with diabetes, you are more vulnerable to foot problems, because diabetes can damage your nerves and reduce blood flow to your feet. Here are some diabetes foot care tips to follow: Wash and Dry Your Feet Daily Use mild soaps Use warm water Pat your skin dry; do not rub. Thoroughly dry your feet. After washing, use lotion on your feet to prevent cracking. Do not put lotion between your toes. Examine Your Feet Each Day Check the tops and bottoms of your feet. Have someone else look at your feet if you cannot see them. Check for dry, cracked skin. Look for blisters, cuts, scratches, or other sores. Check for redness, increased warmth, or tenderness when touching any area of your feet. Check for ingrown toenails, corns, and calluses. If you get a blister or sore from your shoes, do not pop it. Apply a bandage and wear a differentpair of shoes. Take Care of Your Toenails Cut toenails after bathing, when they are soft. Cut toenails straight across and smooth with a nail file. Avoid cutting into the corners of toes. Do not cut cuticles. If you have neuropathy (or decreased sensation in your feet) a budget manager should always cut your toenails. Be Careful When Exercising Walk and exercise in comfortable shoes. Do not exercise when you have open sores on your feet. Protect Your Feet With Shoes and Socks Never go barefoot. Always protect your feet by wearing shoes or hard-soled slippers or footwear. Avoid shoes with high heels and pointed toes. Avoid shoes that expose your toes or heels (such as open-toed shoes or sandals). These types of shoes increase your risk for injury and potential infections. Try on new footwear with the type of socks you usually wear. Do not wear new shoes for more than an hour at a time. Change your socks daily. Look and feel inside your shoes before putting them on to make sure there are no foreign objects orrough areas. Avoid tight socks. Wear natural-fiber socks (cotton, wool, or a cotton-wool blend). Wear special shoes if your health care provider recommends them. Wear shoes/boots that will protect your feet from various weather conditions (cold, moisture, etc.). Make sure your shoes fit properly. If you have neuropathy (nerve damage), you may not notice that your shoes are too tight. Perform the footwear test described below. Footwear Test Use this simple test to see if your shoes fit correctly: Stand on a piece of paper. (Make sure you are standing and not sitting, because your foot changes shape when you stand.) Trace the outline of your foot. Trace the outline of your shoe. Compare the tracings: Is the shoe too narrow? Is your foot crammed into the shoe? The shoe should be at least 1/2 inch longer than your longest toe and as wide as your foot. Proper Shoe Choices The following types of shoes are best for people with diabetes Closed toes and heels Leather uppers without a seam inside At least 1/2 inch extra space at the end of your longest toe Inside of shoe should be soft with no rough areas Outer sole should be made of stiff material Shoes should be at least as wide as your feet Tips for Foot Care in Diabetes Don't wait to treat a minor foot problem if you have diabetes. Follow your health care provider's guidelines and first aid guidelines. Report foot injuries and infections to your health care provider immediately. Check water temperature with your elbow, not your foot. Do not use a heating pad on your feet. Do not cross your legs. Do not self-treat your corns, calluses, or other foot problems. Go to your health care provider or budget manager to treat these conditions. documented in this encounterGal[facility]02-[facility] History of Present illness Narrative* Emilie Tang - 05/24/2022 2:19 PM EST Consultation requested by Dr. Celeste for an opinion regarding diabetic foot exam. My final recommendations will be communicated back to the requesting physician by way of shared Medical record or letter to requesting physician via US mail. Initial Office Visit Subjective: This 76 year old male presents to clinic for diabetic foot check. Patient does report spraining his left ankle about 2 months ago. He states he has developed on/off pain to the left arch.He states xrays taken in the past were negative. Patient admits to being diabetic for 20 years now.Patient +B/T/N in feet at this time. Patient -pain in legs when walking. No other pedal complaints at this time. No change in medications or medical history since last visit. PAIN EVALUATION 05/24/2022 1358 Pain Level: 6 Pain Location: Foot-Left Description: Aching Duration Amount of Time: 2 Duration Units: Months Frequency: Intermittent Intervention/Comfort measure: Reposition;Distractions;Relaxation Hemoglobin A1C (%) Date Value 04/28/2022 7.6 11/01/2021 6.9 08/04/2021 7.3 01/27/2021 6.8 08/30/2020 7.1 01/21/2020 6.8 12/09/2018 6.5 06/11/2018 6.6 PCP: Prince Celeste MD PAST MEDICAL HISTORY Diagnosis Date Acute myocardial infarction of other lateral wall ANEMIA NOS 07/20/2008 Hct 32%, MCV 92 in 06-29 Arthritis Bladder cancer (HCC) 05/20/2009 Dr. Singh. CORONARY ATHEROSCLER UNSPEC VESSEL 07/08/2008 Dr. Markham, [facility]. 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 Terrazas, [facility]. Type II or unspecified type diabetes mellitus without mention of complication, not stated as uncontrolled 12/06/2004 Unspecified essential hypertension 12/06/2004 Current Outpatient Medications Medication Sig dapagliflozin (FARXIGA) 5 mg tablet Take 1 tablet by mouth once daily. Take one daily in the morning traZODone (DESYREL) 50 mg tablet Take 1 tablet by mouth at bedtime as needed (insomnia.). sildenafil (VIAGRA) 100 mg tablet Take 1 tablet by mouth once daily as needed (for ED.). amLODIPine (NORVASC) 10 mg tablet Take 1 tablet by mouth once daily. [facility] atorvastatin (LIPITOR) 80 mg tablet Take 1 tablet by mouth once daily. olopatadine (PATANOL) 0.1 % ophthalmic solution Use 1 Drop in both eyes twice daily as needed (allergies). metFORMIN (GLUCOPHAGE) 1,000 mg tablet Take 1 tablet by mouth daily with breakfast. hydrocortisone (HYTONE,CETACORT) 1 % lotion Apply to affected area twice daily. Using for current rash on chest and underarms blood sugar diagnostic ([place] ULTRA TEST) test strip Test blood sugar(s) 1 times daily. Dx:E11.9Insulin: no cetirizine (ZYRTEC) 10 mg tablet Take 10 mg by mouth once daily. acetaminophen (TYLENOL) 500 mg tablet Take 500 mg by mouth every 8 hours as needed. diclofenac sodium (VOLTAREN) 1 % topical gel Apply 2 g to affected area three times daily as needed(wrist pain). Omeprazole Magnesium (PRILOSEC OTC) 20 mg tablet Take 1 tablet by mouth daily before breakfast. 1/2hr before meal. nitroglycerin sublingual (NITROQUICK) 0.4 mg SL tablet Dissolve 0.4 mg under the tongue every 5 minutes as needed. metoprolol tartrate, short acting, (LOPRESSOR) 50 mg tablet Take 1 tablet by mouth twice daily. tamsulosin (FLOMAX) 0.4 mg Take 1 capsule by mouth daily at bedtime. Dr. Singh. THERAPEUTIC MULTIVITAMIN TAB Take one(1) tablet daily. No current facility-administered medications for this visit. ALLERGIES Allergen Reactions Keflex [Cephalexin] Rash Rash and itching.Pt told by to discontinue Keflex immediately. Ofloxacin Hives ofloxacin ear drops Penicillins Rash PAST SURGICAL HISTORY Procedure Laterality Date COLONOSCOPY FLX DX W/COLLJ SPEC WHEN PFRMD 03/25/2004 Colonoscopy COLONOSCOPY FLX DX W/COLLJ SPEC WHEN PFRMD 04/07/2016 normal 10 year follow up CORONARY ARTERY BYP W/VEIN & ARTERY GRAFT 4 VEIN CABG, 5 vessel CYSTO W/REMOVAL OF TUMORS SMALL 04/21/2009 Excision bladder tumor CYSTOURETHROSCOPY Cystoscopy annually last 2016 DIABETES with stage 3 kidney disease ESOPHAGOGASTRODUODENOSCOPY TRANSORAL DIAGNOSTIC 03/25/2004 EGD LEFT HEART CATH 05/12/2014 Left ventriculogram, coronary arteriography, SVG angiography, SALLY arteriography LEFT HEART CATH,PERCUTANEOUS 06/2009 Cardiac cath, L heart PAST SURGICAL HISTORY OF 11/21/2005 excision lymph node right side neck PAST SURGICAL HISTORY OF 1967 Left forearm ORIF fracture. REVISE MEDIAN N/CARPAL TUNNEL SURG Right 06/09/2021 Right carpal tunnel release RPR 1ST INGUN HRNA AGE 5 YRS/> REDUCIBLE 2000 Hernia repair, inguinal RPR 1ST INGUN HRNA AGE 5 YRS/> REDUCIBLE 12/17/2012 Hernia repair, inguinal SKIN BIOPSY HX TONSILLECTOMY & ADENOIDECTOMY <AGE 12 FAMILY HISTORY Problem Relation Age of Onset Coronary Artery Disease Mother Diabetes Mother Heart Father Diabetes Father Cancer Brother esophageal Coronary Artery Disease Brother Diabetes Sister Cataract Sister Stroke Sister Blindness Sister Diabetes Brother Social History Tobacco Use Smoking status: Former Packs/day: 1.00 Years: 20.00 Pack years: 20.00 Types: Cigarettes Start date: 04/23/1959 Quit date: 04/23/1979 Years since quittin.1 Smokeless tobacco: Never Vaping Use Vaping Use: Never used Substance Use Topics Alcohol use: No Drug use: No REVIEW OF SYSTEMS GENERAL: Negative for Malaise, significant weight loss, fever RESPIRATORY: Negative for cough, wheezing and shortness of breath CARDIOVASCULAR: Negative for chest pain, leg swelling and palpitations GI: Negative for abdominal discomfort, blood in stools or black stools and change in bowel habits : Negative for dysuria, frequency and incontinence MUSCULOSKELETAL: Negative for joint pain or swelling, back pain, and muscle pain. SKIN: Negative for lesions, rash, and itching. HEMATOLOGY/LYMPHOLOGY Negative for prolonged bleeding, bruising easily, and swollen nodes. ENDOCRINE: Negative for cold or heat intolerance, polyuria, polydipsia and goiter. NEURO: negative The remainder of the review of systems is noncontributory. Objective: Patient presents to clinic ambulating in [facility] Constitutional: Pt is a well developed 76 year old male who is alert, oriented, cooperative and in no apparent distress. Eyes: Following during examination. No redness or drainage. Respiratory: RR normal and nonlabored. Even breathing. No evidence of distress. Psychology: Patient is engaged during conversation. Normal affect and mood. Does not appear depressed or anxious. Vasc: DP and PT pulses are palpable bilateral. CFT is less than 5 seconds bilateral. Skin temperature is warm to warm proximal to distal bilateral. There is no edema or varicosities noted. Hair growth present. Neuro: Protective sensation is intact to the foot and toes when tested with the 5.07 SWM bilateral.Vibratory sensation is decreased at the hallux bilateral. + Significant neurological defecits. Derm: Inspection and palpation performed. Nails 1-5 b/l are normal in length and thickness. Skin isof normal turgor and texture. Hyperkeratosis noted to b/l 5th metatarsal. NO ulcerations, scars, verruca or other lesions noted. Small blood blister without infection to left hallux at site where patient trimmed his nail Ortho: Ankle joint DF is full with the knee extended and full with knee flexed. No pain or crepitusnoted. STJ, MTJ ROM are full and free of pain or crepitus. Muscle strength is 5/5 for dorsiflexors,plantarflexors, inverters, everters. Digital deformities include tailors bunion right. Assessment: (E11.49) Other diabetic neurological complication associated with type 2 diabetes mellitus (HCC) (primary encounter diagnosis) Tailors bunion (S93.492A) Sprain of anterior talofibular ligament of left ankle, initial encounter (L85.9) Hyperkeratosis Plan: 1. Patient was seen and evaluated. 2. Patient was instructed on the continued importance of diabetic foot care along with proper diet and keeping their blood sugar under control to prevent complications. Instructions given both oral and written. 3. Discussed tailors bunion right with associated callus. Contineu with wider shoes. Callus reducedwith dremmel. Diabetic shoes ordered 4. Discussed sprain of left foot. Recommend arch supports vs diabetic shoes. Offered repeat xrays. Patient declined. Offered therapy. Patient declined. If pain fails to improve, call for follow-up 5. Small bleed at left hallux self inflicted by patient. It is healing. Continue to monitor. Emilie Tang DPM * Philomena Ortega RN - 05/24/2022 1:56 PM EST AMB ROOMING INTAKE FLOWSHEET DATA Pain Pain Level: 6 Pain Location: Foot-Left Description: Aching Duration Amount of Time: 2 Duration Units: Months Frequency: Intermittent Intervention/Comfort measure: Reposition, Distractions, Relaxation Patient presents with: Left Foot - New, Pain, Diabetic Foot Check Right Foot - New, Diabetic Foot Check Patient presents to get established with a budget manager and to get an order for diabetic shoes. States occasional pain to left arch as well. Hx of Diabetes documented in this encounterGalion Hospital01-16-2023 Miscellaneous Notes* Telephone Encounter - Rocío Parker RN - 05/08/2022 6:54 PM EST Spoke with patient. Given message from provider's office. Patient verbalizes understanding. Rocío Parker RN * Telephone Encounter - Gisselle Craven LPN - 05/08/2022 6:06 PM EST Left message to call & speak to nurse. Gisselle Craven LPN * Telephone Encounter - Oma Lao LPN - 05/08/2022 11:01 AM EST LEFT MESSAGE FOR PATIENT TO CALL OFFICE. * Telephone Encounter - Travis Peña Ma - 05/05/2022 2:51 PM EST Left message to call office. 05/05/2022 2:51 PM Travis Peña Ma * Telephone Encounter - Prince Celeste MD - 05/05/2022 12:41 PM EST ASSESSMENT/PLAN: 1. Type 2 diabetes mellitus with stage 3b chronic kidney disease, without long- term current use of insulin ([facility]) - ICD9: 250.40, 585.3, ICD10: E11.22, N18.32 (primary diagnosis) - DAPAGLIFLOZIN 5 MG TABLET - CONSULT TO PODIATRY Patient's request for medication is as follows Requested Prescriptions Signed Prescriptions Disp Refills dapagliflozin (FARXIGA) 5 mg tablet 30 tablet 2 Sig: Take 1 tablet by mouth once daily. Take one daily in the morning Authorizing Provider: CELESTE, MARLEE 2. Acute foot pain, left - ICD9: 729.5, ICD10: M79.672 - CONSULT TO PODIATRY Prince Celeste MD * Telephone Encounter - Olivia Stoddard RN - 05/05/2022 10:42 AM EST Pt calling with 2 messages: At pt's OV yesterday, it was discussed that pt would check on pricing of SGLT2 inhibitors. Pt wouldlike PCP to know that his insurance will cover either one that was discussed. Pt asking for 30 day script to [facility]. Pt states his insurance will pay 100% for diabetic shoes. Pt asking to see a budget manager. Asking if pt will place referral? Please call pt with update. Thank you. documented in this encounterGalion Hospital01-16-2023 Miscellaneous Notes* Telephone Encounter - Shyann Vanegas LPN - 05/08/2022 11:27 AM EST Patient called, wanted to know if he needed to do anything for 05/24/22 visit regarding diabetic shoes. Read message to patient, reiterated that no prior paperwork will need picked up. Pt stated understanding. Shyann Vanegas LPN * Telephone Encounter - Philomena Ortega RN - 05/05/2022 3:47 PM EST Returned patient's call. Patient was wanting to get diabetic shoes. Informed him that we would see him and be able to write an order for the shoes. Patient was unsure how the process would work. Attempted to explain process to patient and his about having to see Dr. Tang in the office before we would write the order. Patient unsure if he wanted to have 2 separate appointments to get the shoes. Informed him that if he just wanted the shoes to talk to his PCP. Patient states that his PCPmade an appointment with Dr. Tang to evaluate him as he is a diabetic. Patient states that at this time he will keep his appointment. Patient informed there is no paperwork to rock picker prior to jeremy ointment and fill out. * Telephone Encounter - Lisa Lopez - 05/05/2022 3:21 PM EST Patient is wanting to know if there is any paperwork for his upcoming appointment that he could rock picker and complete prior. Please contact the patient to advise. documented in this encounterGalion Hospital01-12-2023 Instructions* Patient Instructions* Prince Celeste MD - 05/04/2022 2:54 PM EST Check coverage for either of this diabetes medications: JARDIANCE 10 MG Take one(1) tablet daily. OR FARXIGA 5 MG Take one(1) tablet daily. documented in this encounterGalion Hospital01-12-2023 History of Present illness Narrative* Prince Celeste MD - 05/04/2022 2:21 PM EST This note was created using nCino. Subjective Seda Menchaca is a 76 year old male. His left foot pain was resolving. Prednisone did elevate his glucose, but his glucose was back to 138 this morning. He avoided random checks because glucose was often high. He otherwise felt well. He was interested in getting diabetic shoes. Review of Systems Constitutional: Negative. Respiratory: Negative. Cardiovascular: Negative. Gastrointestinal: Negative. Musculoskeletal: Negative. Psychiatric/Behavioral: Positive for sleep disturbance. Negative for dysphoric mood. ACTIVE PROBLEM LIST Essential Hypertension Type 2 Diabetes Mellitus With Stage 3 Chronic Kidney Disease, Without Long-Term Current Use of Insulin (Hcc) Pure Hypercholesterolemia Impotence of Organic Origin Coronary Atherosclerosis Gerd (Gastroesophageal Reflux Disease) Bladder Cancer (Hcc) Osteoarthritis Lumbago With Sciatica, Unspecified Side Cervicalgia of [place] Squamous Cell Cancer of Scalp and Skin of Neck Arthritis of Hand Hypertensive Kidney Disease With Stage 3 Chronic Kidney Disease (Hcc) Social History Tobacco Use Smoking status: Former Packs/day: 1.00 Years: 20.00 Pack years: 20.00 Types: Cigarettes Start date: 04/23/1959 Quit date: 04/23/1979 Years since quittin.0 Smokeless tobacco: Never Vaping Use Vaping Use: Never used Substance Use Topics Alcohol use: No Drug use: No Current Outpatient Medications on File Prior to Visit Medication Sig sildenafil (VIAGRA) 100 mg tablet Take 1 tablet by mouth once daily as needed (for ED.). amLODIPine (NORVASC) 10 mg tablet Take 1 tablet by mouth once daily. [facility] atorvastatin (LIPITOR) 80 mg tablet Take 1 tablet by mouth once daily. olopatadine (PATANOL) 0.1 % ophthalmic solution Use 1 Drop in both eyes twice daily as needed (allergies). metFORMIN (GLUCOPHAGE) 1,000 mg tablet Take 1 tablet by mouth daily with breakfast. hydrocortisone (HYTONE,CETACORT) 1 % lotion Apply to affected area twice daily. Using for current rash on chest and underarms blood sugar diagnostic ([place] ULTRA TEST) test strip Test blood sugar(s) 1 times daily. Dx:E11.9Insulin: no cetirizine (ZYRTEC) 10 mg tablet Take 10 mg by mouth once daily. acetaminophen (TYLENOL) 500 mg tablet Take 500 mg by mouth every 8 hours as needed. diclofenac sodium (VOLTAREN) 1 % topical gel Apply 2 g to affected area three times daily as needed(wrist pain). Omeprazole Magnesium (PRILOSEC OTC) 20 mg tablet Take 1 tablet by mouth daily before breakfast. 1/2hr before meal. nitroglycerin sublingual (NITROQUICK) 0.4 mg SL tablet Dissolve 0.4 mg under the tongue every 5 minutes as needed. metoprolol tartrate, short acting, (LOPRESSOR) 50 mg tablet Take 1 tablet by mouth twice daily. tamsulosin (FLOMAX) 0.4 mg Take 1 capsule by mouth daily at bedtime. Dr. Singh. THERAPEUTIC MULTIVITAMIN TAB Take one(1) tablet daily. No current facility-administered medications on file prior to visit. Objective BP 120/66 (BP Site: Left Arm, BP Position: Sitting, BP Cuff Size: Large Adult) Pulse 60 Temp (!) 35.9 C (96.7 F) (Temporal) Resp 16 Wt 67.1 kg (148 lb) BMI 24.93 kg/m Physical Exam Cardiovascular: Rate and Rhythm: Normal rate and regular rhythm. Heart sounds: No murmur heard. No gallop. Pulmonary: Effort: Pulmonary effort is normal. Breath sounds: Normal breath sounds. Musculoskeletal: Right lower leg: No edema. Left lower leg: No edema. Neurological: Mental Status: He is alert. Component Latest Ref Rng & Units 04/28/2022 Glucose 74 - 99 mg/dL 183 (H) BUN 9 - 24 mg/dL 28 (H) Creatinine 0.73 - 1.22 mg/dL 1.73 (H) Sodium 136 - 144 mmol/L 139 Potassium 3.7 - 5.1 mmol/L 3.8 Chloride 97 - 105 mmol/L 100 CO2 22 - 30 mmol/L 27 Anion Gap 9 - 18 mmol/L 12 Calcium 8.5 - 10.2 mg/dL 9.5 eGFR >=60 mL/min/1.73m 40 (L) Creatinine, Ur Random (UCRR) 20.0 - 300.0 mg/dL 219.4 Albumin, Urine Random mg/L 31.0 Albumin/Creat Ratio <30 mg/g 14 Hemoglobin A1C 4.3 - 5.6 % 7.6 (H) Estimated Average Glucose mg/dL 171 Assessment and Plan 1. Type 2 diabetes mellitus with stage 3b chronic kidney disease, without long- term current use of insulin (HCC) - ICD9: 250.40, 585.3, ICD10: E11.22, N18.32 (primary diagnosis) worsening control - Continue current medications - eGFR: Stable - See printed instructions or information. He will check on pricing of SGLT2 inhibitors. Discussed medication dosage, usage, goals of therapy, and side effects. - COMP METABOLIC PANEL - HGB A1C 2. Hypertensive kidney disease with stage 3b chronic kidney disease (HCC) - ICD9: 403.90, 585.3, ICD10: I12.9, N18.32 - good control - Continue current medication(s) - Reviewed risks of HTN and principles of treatment - Goal of BP <130/80 3. Essential hypertension - ICD9: 401.9, ICD10: I10 - good control - Continue current medication(s) 4. Pure hypercholesterolemia - ICD9: 272.0, ICD10: E78.00 Controlled. 5. Insomnia, unspecified type - ICD9: 780.52, ICD10: G47.00 Discussed medication dosage, usage, goals of therapy, and side effects. - TRAZODONE 50 MG TABLET 6. Acute foot pain, left - ICD9: 729.5, ICD10: M79.672 Resolving. I offered podiatry for diabetic shoe. He will defer for now. Prince Celeste MD documented in this encounterGalion Hospital01-03-2023 Miscellaneous Notes* Telephone Encounter - Zaiad Hamilton RN - 04/25/2022 10:41 AM EST Patient calls and notified of results and providers instructions. Patient verbalizes understanding. Zaida Hamilton RN * Telephone Encounter - Gisselle Craven LPN - 04/25/2022 10:13 AM EST Left message to call & speak to nurse for non-urgent results. Gisselle Craven LPN * Telephone Encounter - Gisselle Craven LPN - 04/25/2022 10:12 AM EST ----- Message from Prince Celeste MD sent at 04/23/2022 12:03 PM EST ----- Xrays negative. documented in this encounterGalion Hospital12-29-2022 History of Present illness Narrative* Leon Jesus RT(R) - 04/20/2022 10:20 AM EST Radiology Service Progress Note PATIENT NAME: Seda Menchaca DATE OF SERVICE: April 20, 2022 TIME: 10:19 AM PATIENT IDENTITY VERIFICATION COMPLETED USING TWO (2) IDENTIFIERS: Name and Date of confirmedby patient verbally. FALL SCREENING: Has the patient had 2 falls in the last year or 1 fall with injury or currently using an Ambulatory Assistive Device (Walker, Cane, Wheelchair, Crutches, etc.)? No PATIENT GENDER DATA: Male PATIENT RELEVANT IMPLANT DATA REVIEWED: Not Applicable RADIOLOGY DEPARTMENT: General X-ray: Exam(s) Completed: Lower Extremity X- Ray(s): Foot, Left and Wt. Bearing PERIPHERAL IV DATA: Not applicable SIGNED BY: RT Portillo(R) April 20, 2022 10:19 AM documented in this encounterGalion Hospital12-29-2022 Miscellaneous Notes* Result Encounter Note - Prince Celeste MD - 04/20/2022 10:20 AM EST Xrays negative. documented in this encounterGalion Hospital12-29-2022 Progress note* Result Encounter Note - Prince Celeste MD - 04/20/2022 10:20 AM EST Xrays negative. [facility] Miscellaneous Notes* Telephone Encounter - Do Smith LPN - 03/03/2022 12:49 PM EST Spoke with pt let him know script was approved and taken to front desk manager for rock picker. Pt voices understanding. * Telephone Encounter - Olivia Stoddard RN - 02/28/2022 3:41 PM EST Patient calling to ask if he is able to have a refill of sildenafil faxed to a [facility] ifpatient provides fax info? If PCP not able to do this, patient asking if new script for sidenafil can be printed for pt to rock picker and have filled at a [facility]? He reports he has done this before. Please advise patient. Thank you. documented in this encounterGalion Hospital11-11-2022 Miscellaneous Notes* Telephone Encounter - Mt Cox LPN - 03/03/2022 9:56 AM EST Patient phones requesting refills as follows: Requested Prescriptions Pending Prescriptions Disp Refills sildenafil (VIAGRA) 100 mg tablet 88 tablet 1 Sig: Take 1 tablet by mouth once daily as needed (for ED.). *Pt states he would like rx printed so that he can come to office to pick it up and [facility] it to [facility]. Please review and advise. Mt Cox LPN documented in this encounterGalion Hospital07-21-2022 Miscellaneous Notes* Telephone Encounter - Prince Celeste MD - 11/10/2021 1:10 PM EDT Noted. * Telephone Encounter - Merna Austin LPN - 11/08/2021 3:12 PM EDT FYI: Pt called and states the medication Jardiance is to expensive and he is going to stay on Metformin for now. Merna Austin LPN documented in this encounterGalion Hospital07-18-2022 History of Present illness Narrative* Prince Celeste MD - 11/07/2021 5:27 PM EDT This note was created using M:Metricsriter. Subjective Seda Menchaca is a 75 year old male. He was doing reasonably well. His diabetes mellitus was controlled. He had skin cancer treatments thru [facility]. He sees Dr. Diamond who felt his kidney function was stable. There was discussion about switching his metformin to another medication. Review of Systems Constitutional: Negative. Respiratory: Negative. Cardiovascular: Negative. Gastrointestinal: Negative. Genitourinary: Negative. Musculoskeletal: Negative. Neurological: Negative. ACTIVE PROBLEM LIST Essential Hypertension Type 2 Diabetes Mellitus With Stage 3 Chronic Kidney Disease, Without Long-Term Current Use of Insulin (Hcc) Pure Hypercholesterolemia Impotence of Organic Origin Coronary Atherosclerosis Gerd (Gastroesophageal Reflux Disease) Bladder Cancer (Hcc) Osteoarthritis Lumbago With Sciatica, Unspecified Side Cervicalgia of [place] Region Squamous Cell Cancer of Scalp and Skin of Neck Arthritis of Hand Hypertensive Kidney Disease With Stage 3 Chronic Kidney Disease (Hcc) Current Outpatient Medications Medication Sig atorvastatin (LIPITOR) 80 mg tablet Take 1 tablet by mouth once daily. olopatadine (PATANOL) 0.1 % ophthalmic solution Use 1 Drop in both eyes twice daily as needed (allergies). metFORMIN (GLUCOPHAGE) 1,000 mg tablet Take 1 tablet by mouth daily with breakfast. hydrocortisone (CORTIZONE-10) 1 % lotion Apply to affected area twice daily. Using for current juan f chest and underarms blood sugar diagnostic (aloomaUCH ULTRA TEST) test strip Test blood sugar(s) 1 times daily. Dx:E11.9Insulin: no cetirizine (ZYRTEC) 10 mg tablet Take 10 mg by mouth once daily. acetaminophen (TYLENOL EXTRA STRENGTH) 500 mg tablet Take 500 mg by mouth every 8 hours as needed. sildenafil (VIAGRA) 100 mg tablet Take 1 tablet by mouth once daily as needed (for ED.). diclofenac sodium (VOLTAREN) 1 % topical gel Apply 2 g to affected area three times daily as needed(wrist pain). Omeprazole Magnesium (PRILOSEC OTC) 20 mg tablet Take 1 tablet by mouth daily before breakfast. 1/2hr before meal. nitroglycerin sublingual (NITROQUICK) 0.4 mg SL tablet Dissolve 0.4 mg under the tongue every 5 minutes as needed. metoprolol tartrate, short acting, (LOPRESSOR) 50 mg tablet Take 1 tablet by mouth twice daily. tamsulosin (FLOMAX) 0.4 mg Cp24 Take 1 capsule by mouth daily at bedtime. Dr. Singh. THERAPEUTIC MULTIVITAMIN TAB Take one(1) tablet daily. amLODIPine (NORVASC) 10 mg tablet Take 1 tablet by mouth once daily. [facility] No current facility-administered medications for this visit. Objective BP 130/68 (BP Site: Left Arm, BP Position: Sitting, BP Cuff Size: Large Adult) Pulse (!) 56 Temp 36 C (96.8 F) (Temporal Artery) Resp 18 Ht 164.1 cm (5' 4.6) Wt 67.6 kg (149 lb) BMI 25.10 kg/m Physical Exam Constitutional: General: He is not in acute distress. Appearance: He is not ill-appearing. Cardiovascular: Rate and Rhythm: Regular rhythm. Bradycardia present. Heart sounds: No murmur heard. No friction rub. No gallop. Pulmonary: Breath sounds: Normal breath sounds. Abdominal: Tenderness: There is no abdominal tenderness. Neurological: General: No focal deficit present. Mental Status: He is alert. Gait: Gait normal. Psychiatric: Mood and Affect: Mood normal. Feet:Shoes and socks removed, No deformities, ulcers, calluses, normal distal pulses and sensitive to 10 gm monofilament Component Latest Ref Rng & Units 11/01/2021 WBC 3.70 - 11.00 k/uL 9.08 RBC 4.20 - 6.00 m/uL 4.29 Hemoglobin 13.0 - 17.0 g/dL 13.1 Hematocrit 39.0 - 51.0 % 40.8 MCV 80.0 - 100.0 fL 95.1 MCH 26.0 - 34.0 pg 30.5 MCHC 30.5 - 36.0 g/dL 32.1 RDW-CV 11.5 - 15.0 % 13.5 Platelet Count 150 - 400 k/uL 258 MPV 9.0 - 12.7 fL 11.2 Absolute nRBC <0.01 k/uL <0.01 Glucose 74 - 99 mg/dL 113 (H) BUN 9 - 24 mg/dL 38 (H) Creatinine 0.73 - 1.22 mg/dL 2.02 (H) Sodium 136 - 144 mmol/L 140 Potassium 3.7 - 5.1 mmol/L 3.8 Chloride 97 - 105 mmol/L 99 CO2 22 - 30 mmol/L 28 Anion Gap 9 - 18 mmol/L 13 Calcium 8.5 - 10.2 mg/dL 9.9 eGFR >=60 mL/min/1.73m 34 (L) Hemoglobin A1C 4.3 - 5.6 % 6.9 (H) Estimated Average Glucose mg/dL 151 Assessment and Plan 1. Medicare annual wellness visit, subsequent - ICD9: V70.0, ICD10: Z00.00 (primary diagnosis) See wellness note. 2. Hypertensive kidney disease with stage 3b chronic kidney disease (HCC) - ICD9: 403.90, 585.3, ICD10: I12.9, N18.32 - Fluctuating. We discussed risk of toxicity from metformin. - I suggested adding SGLT2 inhibitor and reducing metformin. He also got a notification from his insurance about a recommended DM medication. He will check if this class is covered. 3. Type 2 diabetes mellitus with stage 3b chronic kidney disease, without long- term current use of insulin (HCC) - ICD9: 250.40, 585.3, ICD10: E11.22, N18.32 Controlled. - See #2. - BASIC METABOLIC PNL - HGB A1C - ALBUMIN/CREAT RATIO RND UR 4. Essential hypertension - ICD9: 401.9, ICD10: I10 - fair control - Continue current medication(s) - AMLODIPINE 10 MG TABLET 5. Pure hypercholesterolemia - ICD9: 272.0, ICD10: E78.00 Controlled. Prince Celeste MD * Prince Celeste MD - 11/07/2021 5:16 PM EDT Medicare Yearly Visit Medical B eligibilty date 12/22/2010 Date of last exam 07/19/2020 PAST MEDICAL HISTORY Diagnosis Date Acute myocardial infarction of other lateral wall ANEMIA NOS 07/20/2008 Hct 32%, MCV 92 in 06-29 Arthritis Bladder cancer (HCC) 05/20/2009 Dr. Singh. CORONARY ATHEROSCLER UNSPEC VESSEL 07/08/2008 Dr. Markham, [facility]. 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 Terrazas, [facility]. Type II or unspecified type diabetes mellitus without mention of complication, not stated as uncontrolled 12/06/2004 Unspecified essential hypertension 12/06/2004 PAST SURGICAL HISTORY Procedure Laterality Date COLONOSCOPY FLX DX W/COLLJ SPEC WHEN PFRMD 03/25/2004 Colonoscopy COLONOSCOPY FLX DX W/COLLJ SPEC WHEN PFRMD 04/07/2016 normal 10 year follow up CORONARY ARTERY BYP W/VEIN & ARTERY GRAFT 4 VEIN CABG, 5 vessel CYSTO W/REMOVAL OF TUMORS SMALL 04/21/2009 Excision bladder tumor CYSTOURETHROSCOPY Cystoscopy annually last 2016 DIABETES with stage 3 kidney disease ESOPHAGOGASTRODUODENOSCOPY TRANSORAL DIAGNOSTIC 03/25/2004 EGD FRACTURE SURGERY HEART SURGERY HX HERNIA REPAIR HX LEFT HEART CATH 05/12/2014 Left ventriculogram, coronary arteriography, SVG angiography, SALLY arteriography LEFT HEART CATH,PERCUTANEOUS 06/2009 Cardiac cath, L heart PAST SURGICAL HISTORY OF 11/21/2005 excision lymph node right side neck PAST SURGICAL HISTORY OF 1967 Left forearm ORIF fracture. REVISE MEDIAN N/CARPAL TUNNEL SURG Right 06/09/2021 Right carpal tunnel release RPR 1ST INGUN HRNA AGE 5 YRS/> REDUCIBLE 2000 Hernia repair, inguinal RPR 1ST INGUN HRNA AGE 5 YRS/> REDUCIBLE 12/17/2012 Hernia repair, inguinal SKIN BIOPSY HX TONSILLECTOMY & ADENOIDECTOMY <AGE 12 TONSILLECTOMY HX VASCULAR SURGERY PROCEDURE ALLERGIES: Keflex [Cephalexin], Ofloxacin, and Penicillins Medications reviewed: Yes FAMILY HISTORY Problem Relation Age of Onset Coronary Artery Disease Mother Diabetes Mother Heart Father Diabetes Father Cancer Brother esophageal Coronary Artery Disease Brother Diabetes Sister Cataract Sister Stroke Sister Blindness Sister Diabetes Brother SOCIAL HISTORY: Social History Tobacco Use Smoking status: Former Smoker Packs/day: 1.00 Years: 20.00 Pack years: 20.00 Types: Cigarettes Start date: 04/23/1959 Quit date: 04/23/1979 Years since quittin.5 Smokeless tobacco: Never Used Vaping Use Vaping Use: Never used Substance Use Topics Alcohol use: No Drug use: No Seda likes to exercise by walking on treadmill and twice a week. He watches his diet for sodium, low fat and low cholesterol most of the time. List of current specialists seen: Dr. Markham, cardiology. Dr. Singh, urology. Dr. Bailey, optometry. Dr Terrazas, [facility]. Dr. Karmen Delgado, [facility]. Dr. Karmen Diamond, nephrology. End of Live Planning discussed including patients advanced directive wishes: No Copy needed. PHQ-2 / Depression screen He in the past two weeks denies having felt down, depressed, hopeless or with little interest or pleasure in doing things. PHQ-2 Score: 0 Functional Ability/Safety Screen 1. Was the patient's timed Up and Go test unsteady or longer than 30 seconds? No 2. Does the patient need help with the phone, transportation, shopping,preparing meals, housework, laundry, medications or managing money? No 3. Does your home have rugs in the hallway, lack of grab bars in the bathroom, lack of handrails onthe stairs or have poor lighting? No Hearing Evaluation: wears hearing aids PHYSICAL EXAM BP 130/68 (BP Site: Left Arm, BP Position: Sitting, BP Cuff Size: Large Adult) Pulse (!) 56 Temp 36 C (96.8 F) (Temporal Artery) Resp 18 Ht 164.1 cm (5' 4.6) Wt 67.6 kg (149 lb) BMI 25.10 kg/m Alert and oriented X 3: YES Body mass index is 25.1 kg/m . Visual acuity: OD: 20/40 OS: 20/ 50 OU: 20/30 The Mini Cog(c): Word recall=2/3 + Clock drawing=2/2=4/5. (<3 is positive). ASSESSMENT/PLAN: 75 year old male The following prevention plan was discussed during the office visit and provided to the patient: - Vaccines recommended COVID-19 and Shingrix at pharmacy - Glaucoma screening - Counseling for Weight Loss and Exercise - Advanced Care Planning discussion. Prince Celeste MD [facility] Instructions* Patient Instructions* Prince Celeste MD - 11/07/2021 5:26 PM EDT Advance Directive Forms Advanced Directives Forms (Macanese) o FORMS: [email or web address].pdf o INFORMATIONAL BROCHURE: [email or web address]/files/[email or web address]/patients-[email or web address]/info [email or web address]/[email or web address]-[email or web address]?la=en Advance Directives (non-Macanese) o FORMS: [email or web address]/adva nce-directives#forms-tab Please bring completed forms to your next appointment or email them to [email or web address]. Patient Resources How to Get Started Talking with Loved Ones about your Wishes at the End of Life [email or web address]://[email or web address]/wp-content/uploads//ConversationProjec g-UeazxXkhuskcQoy-Cdkemnv.pdf How to Navigate Conversations with your Care Team around your Preferences [email or web address] Have you ever planned for future healthcare decisions with a power of threader operator, living will, or advance directives? Yes. Have you shared those records with your doctor? No and No. Please bring a copyto your next appointment or email to [email or web address] Consider starting JARDIANCE 10 mg daily for diabetes and kidney disease. Check insurance. Call if medication covered. documented in this encounterGal[facility]05-10-2022 Miscellaneous Notes* Telephone Encounter - Gissellejanak Craven LPN - 08/30/2021 11:31 AM EDT Patient has been identified by name and date of : Yes Patient phones for refill(s): Pending Prescriptions Disp Refills ATORVASTATIN 80 MG TABLET 90 tablet 3 Sig: Take 1 tablet by mouth once daily. ADALI: No OLOPATADINE 0.1 % EYE DROPS Sig: Use 1 Drop in both eyes twice daily as needed (allergies). ADALI: No Date of last office visit in primary care: 02/03/2021 Medicare Wellness: 11/07/2021 Last 2 Encounter Wt Readings: Date: Wt: 04/28/2021 69.9 kg (154 lb) 02/15/2021 69.9 kg (154 lb 1.6 oz) Previous labs/tests for medication: Cholesterol: HDL Cholesterol (mg/dL) Date Value 01/27/2021 36 LDL Cholesterol (mg/dL) Date Value 01/27/2021 52 ALT (U/L) Date Value 01/21/2020 45 Non HDL Cholesterol, Nonfasting (mg/dL) Date Value 01/21/2020 73 Non HDL Cholesterol (mg/dL) Date Value 01/27/2021 73 Please advise. Thank you. Gisselle Craven LPN * Telephone Encounter - Venus Hidalgo - 08/30/2021 9:54 AM EDT Patient has been identified by name and date of : Yes Pending Prescriptions Disp Refills ATORVASTATIN 80 MG TABLET 90 tablet 3 Sig: Take 1 tablet by mouth once daily. ADALI: No OLOPATADINE 0.1 % EYE DROPS Sig: Use 1 Drop in both eyes twice daily as needed (allergies). ADALI: No RX INSTRUCTIONS: Patient aware RX will be sent to pharmacy. No need to notify patient. Venus Hidalgo documented in this encounterGalion [facility]04-19-2022 Miscellaneous Notes* Telephone Encounter - Zaida Hamilton RN - 08/09/2021 3:36 PM EDT Patient calls in and provider message given to patient. Patient verbalizes understanding and requested message be given to as well. Notified who also verbalizes understanding. Patient did not want to schedule an appointment for labs. He said he would come in sometime the week before 11/07 appointment and have them done. Zaida Hamilton RN * Telephone Encounter - Rimma Haskins LPN - 08/09/2021 3:17 PM EDT message left for pt to return call to a nurse. Labs are ordered please arrange for October lab appt per pcp * Telephone Encounter - Rimma Haskins LPN - 08/09/2021 3:16 PM EDT ----- Message from Prince Celeste MD sent at 08/08/2021 4:35 PM EDT ----- Mild anemia. DM elevating. CKD stable. Repeat CBC, BMP, A1C in 3 months for 11/07/21 appt. documented in this encounterGalion [facility]04-18-2022 Miscellaneous Notes* Telephone Encounter - Rimma Haskins LPN - 08/08/2021 12:22 PM EDT pt seen provider 02/10/21 and next appt is 11/07/21. * Telephone Encounter - Diana Short - 08/08/2021 11:29 AM EDT Patient has been identified by name and date of : Yes Pending Prescriptions Disp Refills METFORMIN 1,000 MG TABLET 90 tablet 3 Sig: Take 1 tablet by mouth daily with breakfast. ADALI: No RX INSTRUCTIONS: Patient aware RX will be sent to pharmacy. No need to notify patient. Diana Short documented in this encounterGalion [facility]04-18-2022 Evaluation note* Diagnosis Type 2 diabetes mellitus with stage 3a chronic kidney disease, without long-term current use of insulin (HCC) documented in this encounter [facility] History of Present illness Narrative* Maile MayersRt), Theresa - 07/14/2020 12:30 PM EDT Radiology Service Progress Note PATIENT NAME: Seda Menchaca DATE OF SERVICE: July 14, 2020 TIME: 12:30 PM PATIENT IDENTITY VERIFICATION COMPLETED USING TWO (2) IDENTIFIERS: Name and Date of confirmedby patient verbally. FALL SCREENING: Has the patient had 2 falls in the last year or 1 fall with injury or currently using an Ambulatory Assistive Device (Walker, Cane, Wheelchair, Crutches, etc.)? No PATIENT GENDER DATA: Male PATIENT RELEVANT IMPLANT DATA REVIEWED: Yes RADIOLOGY DEPARTMENT: General X-ray: Exam(s) Completed: Upper Extremity X- Ray(s): Wrist, bilateral and Hand, bilateral : PERIPHERAL IV DATA: Not applicable SIGNED BY: RT Kia July 14, 2020 12:30 PM documented in this encounterGalion Hospital08-10-2016 History of Past illness Narrative* Problem Noted Date Resolved Date Acute bilateral low back pain without sciatica 0 12/01/2015 12/12/2016 CKD (chronic kidney disease) stage 3, GFR 30-59 ml/min 06/28/2015 12/11/2018 Right inguinal hernia 12/25/2012 03/06/2013 Dysuria 09/04/2012 03/06/2013 Anemia, unspecified 07/20/2008 03/06/2013 Overview: Hct 32%, MCV 92 in 06-29 Overweight(278.02) 07/15/2008 03/13/2014 Overview: Declined sleep testing despite CABG as of 06-29 Disorders of bursae and tend ons in shoulder region, unspecified 05/26/2008 03/06/2013 Overview: Keyshawn recommended PT in 03-30: also started pt on Etodolac 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 014 documented as of this encounter (statuses as of 07/29/2021) [facility] of Past illness Narrative* Problem Noted Date Resolved Date Acute bilateral low back pain without sciatica 0 12/01/2015 12/12/2016 CKD (chronic kidney disease) stage 3, GFR 30-59 ml/min 06/28/2015 12/11/2018 Right inguinal hernia 12/25/2012 03/06/2013 Dysuria 09/04/2012 03/06/2013 Anemia, unspecified 07/20/2008 03/06/2013 Overview: Hct 32%, MCV 92 in 3- Overweight(278.02) 07/15/2008 03/13/2014 Overview: Declined sleep testing despite CABG as of 06-29 Disorders of bursae and tend ons in shoulder region, unspecified 05/26/2008 03/06/2013 Overview: Gessler recommended PT in 03-30: also started pt on Etodolac 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 014 documented as of this encounter (statuses as of 08/08/2021) [facility] illness Narrative* Problem Noted Date Resolved Date Acute bilateral low back pain without sciatica 0 12/01/2015 12/12/2016 CKD (chronic kidney disease) stage 3, GFR 30-59 ml/min 06/28/2015 12/11/2018 Right inguinal hernia 12/25/2012 03/06/2013 Dysuria 09/04/2012 03/06/2013 Anemia, unspecified 07/20/2008 03/06/2013 Overview: Hct 32%, MCV 92 in 3- Overweight(278.02) 07/15/2008 03/13/2014 Overview: Declined sleep testing despite CABG as of 06-29 Disorders of bursae and tend ons in shoulder region, unspecified 05/26/2008 03/06/2013 Overview: Gessler recommended PT in 03-30: also started pt on Etodolac 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 11/21/2 014 documented as of this encounter (statuses as of 08/10/2021) [facility] illness Narrative* Problem Noted Date Resolved Date Acute bilateral low back pain without sciatica 0 12/01/2015 12/12/2016 CKD (chronic kidney disease) stage 3, GFR 30-59 ml/min 06/28/2015 12/11/2018 Right inguinal hernia 12/25/2012 03/06/2013 Dysuria 09/04/2012 03/06/2013 Anemia, unspecified 07/20/2008 03/06/2013 Overview: Hct 32%, MCV 92 in 3- Overweight(278.02) 07/15/2008 03/13/2014 Overview: Declined sleep testing despite CABG as of 06-29 Disorders of bursae and tend ons in shoulder region, unspecified 05/26/2008 03/06/2013 Overview: Gessler recommended PT in 03-30: also started pt on Etodolac 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03/13/ 014 documented as of this encounter (statuses as of 08/30/2021) [facility] illness Narrative* Problem Noted Date Resolved Date Acute bilateral low back pain without sciatica 0 12/01/2015 12/12/2016 CKD (chronic kidney disease) stage 3, GFR 30-59 ml/min 06/28/2015 11/07/2021 Right inguinal hernia 12/25/2012 03/06/2013 Dysuria 09/04/2012 03/06/2013 Anemia, unspecified 07/20/2008 03/06/2013 Overview: Hct 32%, MCV 92 in 3- Overweight(278.02) 07/15/2008 03/13/2014 Overview: Declined sleep testing despite CABG as of 06-29 Disorders of bursae and tend ons in shoulder region, unspecified 05/26/2008 03/06/2013 Overview: Gessler recommended PT in 03-30: also started pt on Etodolac 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 014 documented as of this encounter (statuses as of 11/08/2021) [facility] Narrative* Problem Noted Date Resolved Date Acute bilateral low back pain without sciatica 0 12/01/2015 12/12/2016 CKD (chronic kidney disease) stage 3, GFR 30-59 ml/min 06/28/2015 11/07/2021 Right inguinal hernia 12/25/2012 03/06/2013 Dysuria 09/04/2012 03/06/2013 Anemia, unspecified 07/20/2008 03/06/2013 Overview: Hct 32%, MCV 92 in 3- Overweight(278.02) 07/15/2008 03/13/2014 Overview: Declined sleep testing despite CABG as of 06-29 Disorders of bursae and tend ons in shoulder region, unspecified 05/26/2008 03/06/2013 Overview: Gessler recommended PT in 03-30: also started pt on Etodolac 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 014 documented as of this encounter (statuses as of 11/10/2021) [facility] Narrative* Problem Noted Date Resolved Date Acute bilateral low back pain without sciatica 0 12/01/2015 12/12/2016 CKD (chronic kidney disease) stage 3, GFR 30-59 ml/min 06/28/2015 11/07/2021 Right inguinal hernia 12/25/2012 03/06/2013 Dysuria 09/04/2012 03/06/2013 Anemia, unspecified 07/20/2008 03/06/2013 Overview: Hct 32%, MCV 92 in 3- Overweight(278.02) 07/15/2008 03/13/2014 Overview: Declined sleep testing despite CABG as of 06-29 Disorders of bursae and tend ons in shoulder region, unspecified 05/26/2008 03/06/2013 Overview: Gessler recommended PT in 03-30: also started pt on Etodolac 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 014 documented as of this encounter (statuses as of 03/03/2022) [facility] Narrative* Problem Noted Date Resolved Date Acute bilateral low back pain without sciatica 0 12/01/2015 12/12/2016 CKD (chronic kidney disease) stage 3, GFR 30-59 ml/min 06/28/2015 11/07/2021 Right inguinal hernia 12/25/2012 03/06/2013 Dysuria 09/04/2012 03/06/2013 Anemia, unspecified 07/20/2008 03/06/2013 Overview: Hct 32%, MCV 92 in 3- Overweight(278.02) 07/15/2008 03/13/2014 Overview: Declined sleep testing despite CABG as of 06-29 Disorders of bursae and tend ons in shoulder region, unspecified 05/26/2008 03/06/2013 Overview: Gessler recommended PT in 03-30: also started pt on Etodolac 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 014 documented as of this encounter (statuses as of 03/03/2022) [facility] Narrative* Problem Noted Date Resolved Date Acute bilateral low back pain without sciatica 0 12/01/2015 12/12/2016 CKD (chronic kidney disease) stage 3, GFR 30-59 ml/min 06/28/2015 11/07/2021 Right inguinal hernia 12/25/2012 03/06/2013 Dysuria 09/04/2012 03/06/2013 Anemia, unspecified 07/20/2008 03/06/2013 Overview: Hct 32%, MCV 92 in 3- Overweight(278.02) 07/15/2008 03/13/2014 Overview: Declined sleep testing despite CABG as of 06-29 Disorders of bursae and tend ons in shoulder region, unspecified 05/26/2008 03/06/2013 Overview: Gessler recommended PT in 03-30: also started pt on Etodolac 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 014 documented as of this encounter (statuses as of 04/27/2022) [facility] Narrative* Problem Noted Date Resolved Date Acute bilateral low back pain without sciatica 0 12/01/2015 12/12/2016 CKD (chronic kidney disease) stage 3, GFR 30-59 ml/min 06/28/2015 11/07/2021 Right inguinal hernia 12/25/2012 03/06/2013 Dysuria 09/04/2012 03/06/2013 Anemia, unspecified 07/20/2008 03/06/2013 Overview: Hct 32%, MCV 92 in 3-09 Overweight(278.02) 07/15/2008 03/13/2014 Overview: Declined sleep testing despite CABG as of - Disorders of bursae and tend ons in shoulder region, unspecified 05/26/2008 03/06/2013 Overview: Janetteler recommended PT in 03-30: also started pt on Etodolac 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 014 documented as of this encounter (statuses as of 05/04/2022) [facility] N[facility]* Problem Noted Date Resolved Date Acute bilateral low back pain without sciatica 0 12/01/2015 12/12/2016 CKD (chronic kidney disease) stage 3, GFR 30-59 ml/min 06/28/2015 11/07/2021 Right inguinal hernia 12/25/2012 03/06/2013 Dysuria 09/04/2012 03/06/2013 Anemia, unspecified 07/20/2008 03/06/2013 Overview: Hct 32%, MCV 92 in 3-09 Overweight(278.02) 07/15/2008 03/13/2014 Overview: Declined sleep testing despite CABG as of 06-29 Disorders of bursae and tend ons in shoulder region, unspecified 05/26/2008 03/06/2013 Overview: Keilasler recommended PT in 03-30: also started pt on Etodolac 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 014 documented as of this encounter (statuses as of 05/08/2022) [facility] Narrative* Problem Noted Date Resolved Date Acute bilateral low back pain without sciatica 0 12/01/2015 12/12/2016 CKD (chronic kidney disease) stage 3, GFR 30-59 ml/min 06/28/2015 11/07/2021 Right inguinal hernia 12/25/2012 03/06/2013 Dysuria 09/04/2012 03/06/2013 Anemia, unspecified 07/20/2008 03/06/2013 Overview: Hct 32%, MCV 92 in 3-09 Overweight(278.02) 07/15/2008 03/13/2014 Overview: Declined sleep testing despite CABG as of - Disorders of bursae and tend ons in shoulder region, unspecified 05/26/2008 03/06/2013 Overview: Keilasler recommended PT in 03-30: also started pt on Etodolac 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 014 documented as of this encounter (statuses as of 05/09/2022) [facility] Narrative* Problem Noted Date Resolved Date Acute bilateral low back pain without sciatica 0 12/01/2015 12/12/2016 CKD (chronic kidney disease) stage 3, GFR 30-59 ml/min 06/28/2015 11/07/2021 Right inguinal hernia 12/25/2012 03/06/2013 Dysuria 09/04/2012 03/06/2013 Anemia, unspecified 07/20/2008 03/06/2013 Overview: Hct 32%, MCV 92 in 3-09 Overweight(278.02) 07/15/2008 03/13/2014 Overview: Declined sleep testing despite CABG as of - Disorders of bursae and tend ons in shoulder region, unspecified 05/26/2008 03/06/2013 Overview: Keilasler recommended PT in 03-30: also started pt on Etodolac 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 014 documented as of this encounter (statuses as of 05/24/2022) [facility]* Problem Noted Date Resolved Date Acute bilateral low back pain without sciatica 0 12/01/2015 12/12/2016 CKD (chronic kidney disease) stage 3, GFR 30-59 ml/min 06/28/2015 11/07/2021 Right inguinal hernia 12/25/2012 03/06/2013 Dysuria 09/04/2012 03/06/2013 Anemia, unspecified 07/20/2008 03/06/2013 Overview: Hct 32%, MCV 92 in 3-09 Overweight(278.02) 07/15/2008 03/13/2014 Overview: Declined sleep testing despite CABG as of 06-29 Disorders of bursae and tend ons in shoulder region, unspecified 05/26/2008 03/06/2013 Overview: Janetteler recommended PT in 03-30: also started pt on Etodolac 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 014 documented as of this encounter (statuses as of 06/06/2022) [facility]2016 History of Past illness Narrative* Problem Noted Date Resolved Date Acute bilateral low back pain without sciatica 0 12/01/2015 12/12/2016 CKD (chronic kidney disease) stage 3, GFR 30-59 ml/min 06/28/2015 11/07/2021 Right inguinal hernia 12/25/2012 03/06/2013 Dysuria 09/04/2012 03/06/2013 Anemia, unspecified 07/20/2008 03/06/2013 Overview: Hct 32%, MCV 92 in 3-09 Overweight(278.02) 07/15/2008 03/13/2014 Overview: Declined sleep testing despite CABG as of 06-29 Disorders of bursae and tend ons in shoulder region, unspecified 05/26/2008 03/06/2013 Overview: Keilasler recommended PT in 03-30: also started pt on Etodolac 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 014 documented as of this encounter (statuses as of 08/14/2022) [facility] History of Past illness Narrative* Problem Noted Date Resolved Date Acute bilateral low back pain without sciatica 0 12/01/2015 12/12/2016 CKD (chronic kidney disease) stage 3, GFR 30-59 ml/min 06/28/2015 11/07/2021 Right inguinal hernia 12/25/2012 03/06/2013 Dysuria 09/04/2012 03/06/2013 Anemia, unspecified 07/20/2008 03/06/2013 Overview: Hct 32%, MCV 92 in 3- Overweight(278.02) 07/15/2008 03/13/2014 Overview: Declined sleep testing despite CABG as of 06-29 Disorders of bursae and tend ons in shoulder region, unspecified 05/26/2008 03/06/2013 Overview: Keilasler recommended PT in 03-30: also started pt on Etodolac 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 014 documented as of this encounter (statuses as of 08/21/2022) [facility] History of Past illness Narrative* Problem Noted Date Resolved Date Acute bilateral low back pain without sciatica 0 12/01/2015 12/12/2016 CKD (chronic kidney disease) stage 3, GFR 30-59 ml/min 06/28/2015 11/07/2021 Right inguinal hernia 12/25/2012 03/06/2013 Dysuria 09/04/2012 03/06/2013 Anemia, unspecified 07/20/2008 03/06/2013 Overview: Hct 32%, MCV 92 in 3-09 Overweight(278.02) 07/15/2008 03/13/2014 Overview: Declined sleep testing despite CABG as of 06-29 Disorders of bursae and tend ons in shoulder region, unspecified 05/26/2008 03/06/2013 Overview: Gessler recommended PT in 03-30: also started pt on Etodolac 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 014 documented as of this encounter (statuses as of 09/28/2022) [facility] History of Past illness Narrative* Problem Noted Date Diagnosed Date Resolved Date Acute bilateral low back cj n without sciatica 12/01/2015 12/12/2016 CKD (chronic kidney disease) stage 3, GFR 30-59 ml/min 06/28/2015 11/07/2021 Right inguinal hernia 12/25/20122012 Dysuria 09/04/2012 03/06/2013 Anemia, unspecified 07/20/2008 03/06/20 13 Overview: Hct 32%, MCV 92 in 3- Overweight(278.02) 07/15/2008 4 Overview: Declined sleep testing despite CABG as of 06-29 Disorders of bursae and tend ons in shoulder region, unspecified 05/26/2008 03/06/2013 Overview: Keilasler recommended PT in 03-30: also started pt on Etodolac 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 documented as of this encounter (statuses as of 11/09/2022) [facility] History of Past illness Narrative* Problem Noted Date Diagnosed Date Resolved Date Acute bilateral low back cj n without sciatica 12/01/2015 12/12/2016 CKD (chronic kidney disease) stage 3, GFR 30-59 ml/min 06/28/2015 11/07/2021 Right inguinal hernia 12/25/20122012 Dysuria 09/04/2012 03/06/2013 Anemia, unspecified 07/20/2008 03/06/20 13 Overview: Hct 32%, MCV 92 in 3-09 Overweight(278.02) 07/15/2008 4 Overview: Declined sleep testing despite CABG as of 06-29 Disorders of bursae and tend ons in shoulder region, unspecified 05/26/2008 03/06/2013 Overview: Gessler recommended PT in 03-30: also started pt on Etodolac 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 documented as of this encounter (statuses as of 01/07/2023) [facility] History of Past illness Narrative* Problem Noted Date Diagnosed Date Resolved Date Acute bilateral low back cj n without sciatica 12/01/2015 12/12/2016 CKD (chronic kidney disease) stage 3, GFR 30-59 ml/min 06/28/2015 11/07/2021 Right inguinal hernia 12/25/20122012 Dysuria 09/04/2012 03/06/2013 Anemia, unspecified 07/20/2008 03/06/20 13 Overview: Hct 32%, MCV 92 in 3- Overweight(278.02) 07/15/2008 4 Overview: Declined sleep testing despite CABG as of 06-29 Disorders of bursae and tend ons in shoulder region, unspecified 05/26/2008 03/06/2013 Overview: Keilasler recommended PT in 03-30: also started pt on Etodolac 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 documented as of this encounter (statuses as of 03/23/2023) [facility] History of Past illness Narrative* Problem Noted Date Diagnosed Date Resolved Date Acute bilateral low back cj n without sciatica 12/01/2015 12/12/2016 CKD (chronic kidney disease) stage 3, GFR 30-59 ml/min 06/28/2015 11/07/2021 Right inguinal hernia 12/25/20122012 Dysuria 09/04/2012 03/06/2013 Anemia, unspecified 07/20/2008 03/06/20 13 Overview: Hct 32%, MCV 92 in 3- Overweight(278.02) 07/15/2008 4 Overview: Declined sleep testing despite CABG as of 06-29 Disorders of bursae and tend ons in shoulder region, unspecified 05/26/2008 03/06/2013 Overview: Gessler recommended PT in 03-30: also started pt on Etodolac 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 documented as of this encounter (statuses as of 04/13/2023) [facility] History of Past illness Narrative* Problem Noted Date Diagnosed Date Resolved Date Acute bilateral low back cj n without sciatica 12/01/2015 12/12/2016 CKD (chronic kidney disease) stage 3, GFR 30-59 ml/min 06/28/2015 11/07/2021 Right inguinal hernia 12/25/20122012 Dysuria 09/04/2012 03/06/2013 Anemia, unspecified 07/20/2008 03/06/20 13 Overview: Hct 32%, MCV 92 in 3-09 Overweight(278.02) 07/15/2008 4 Overview: Declined sleep testing despite CABG as of - Disorders of bursae and tend ons in shoulder region, unspecified 05/26/2008 03/06/2013 Overview: Keilasler recommended PT in 03-30: also started pt on Etodolac 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 documented as of this encounter (statuses as of 06/16/2023) [facility] History of Past illness Narrative* Problem Noted Date Diagnosed Date Resolved Date Acute bilateral low back cj n without sciatica 12/01/2015 12/12/2016 CKD (chronic kidney disease) stage 3, GFR 30-59 ml/min 06/28/2015 11/07/2021 Right inguinal hernia 12/25/20122012 Dysuria 09/04/2012 03/06/2013 Anemia, unspecified 07/20/2008 03/06/20 13 Overview: Hct 32%, MCV 92 in 3-09 Overweight(278.02) 07/15/2008 4 Overview: Declined sleep testing despite CABG as of 06-29 Disorders of bursae and tend ons in shoulder region, unspecified 05/26/2008 03/06/2013 Overview: Keilasler recommended PT in 03-30: also started pt on Etodolac 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 documented as of this encounter (statuses as of 06/21/2023) [facility] History of Past illness Narrative* Problem Noted Date Diagnosed Date Resolved Date Acute bilateral low back cj n without sciatica 12/01/2015 12/12/2016 CKD (chronic kidney disease) stage 3, GFR 30-59 ml/min 06/28/2015 11/07/2021 Right inguinal hernia 12/25/20122012 Dysuria 09/04/2012 03/06/2013 Anemia, unspecified 07/20/2008 03/06/20 13 Overview: Hct 32%, MCV 92 in 3-09 Overweight(278.02) 07/15/2008 4 Overview: Declined sleep testing despite CABG as of 06-29 Disorders of bursae and tend ons in shoulder region, unspecified 05/26/2008 03/06/2013 Overview: Keilasler recommended PT in 03-30: also started pt on Etodolac 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 documented as of this encounter (statuses as of 06/25/2023) [facility] History of Past illness Narrative* Problem Noted Date Diagnosed Date Resolved Date Acute bilateral low back cj n without sciatica 12/01/2015 12/12/2016 CKD (chronic kidney disease) stage 3, GFR 30-59 ml/min 06/28/2015 11/07/2021 Right inguinal hernia 12/25/20122012 Dysuria 09/04/2012 03/06/2013 Anemia, unspecified 07/20/2008 03/06/20 13 Overview: Hct 32%, MCV 92 in 3-09 Overweight(278.02) 07/15/2008 4 Overview: Declined sleep testing despite CABG as of 3- Disorders of bursae and tend ons in shoulder region, unspecified 05/26/2008 03/06/2013 Overview: Gessler recommended PT in 03-30: also started pt on Etodolac 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 documented as of this encounter (statuses as of 07/10/2023) [facility] History of Past illness Narrative* Problem Noted Date Diagnosed Date Resolved Date Acute bilateral low back cj n without sciatica 12/01/2015 12/12/2016 CKD (chronic kidney disease) stage 3, GFR 30-59 ml/min 06/28/2015 11/07/2021 Right inguinal hernia 12/25/20122012 Dysuria 09/04/2012 03/06/2013 Anemia, unspecified 07/20/2008 03/06/20 13 Overview: Hct 32%, MCV 92 in 3-09 Overweight(278.02) 07/15/2008 4 Overview: Declined sleep testing despite CABG as of 06-29 Disorders of bursae and tend ons in shoulder region, unspecified 05/26/2008 03/06/2013 Overview: Gessler recommended PT in 03-30: also started pt on Etodolac 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 documented as of this encounter (statuses as of 07/13/2023) [facility] History of Past illness Narrative* Problem Noted Date Diagnosed Date Resolved Date Acute bilateral low back cj n without sciatica 12/01/2015 12/12/2016 CKD (chronic kidney disease) stage 3, GFR 30-59 ml/min 06/28/2015 11/07/2021 Right inguinal hernia 12/25/20122012 Dysuria 09/04/2012 03/06/2013 Anemia, unspecified 07/20/2008 03/06/20 13 Overview: Hct 32%, MCV 92 in 3-09 Overweight(278.02) 07/15/2008 4 Overview: Declined sleep testing despite CABG as of 3- Disorders of bursae and tend ons in shoulder region, unspecified 05/26/2008 03/06/2013 Overview: Gessler recommended PT in 03-30: also started pt on Etodolac 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 documented as of this encounter (statuses as of 07/27/2023) [facility] History of Past illness Narrative* Problem Noted Date Diagnosed Date Resolved Date Acute bilateral low back cj n without sciatica 12/01/2015 12/12/2016 CKD (chronic kidney disease) stage 3, GFR 30-59 ml/min 06/28/2015 11/07/2021 Right inguinal hernia 12/25/20122012 Dysuria 09/04/2012 03/06/2013 Anemia, unspecified 07/20/2008 03/06/20 13 Overview: Hct 32%, MCV 92 in 3-09 Overweight(278.02) 07/15/2008 4 Overview: Declined sleep testing despite CABG as of 3- Disorders of bursae and tend ons in shoulder region, unspecified 05/26/2008 03/06/2013 Overview: Gessler recommended PT in 03-30: also started pt on Etodolac 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 documented as of this encounter (statuses as of 07/27/2023) [facility] History of Past illness Narrative* Problem Noted Date Diagnosed Date Resolved Date Acute bilateral low back cj n without sciatica 12/01/2015 12/12/2016 CKD (chronic kidney disease) stage 3, GFR 30-59 ml/min 06/28/2015 11/07/2021 Right inguinal hernia 12/25/20122012 Dysuria 09/04/2012 03/06/2013 Anemia, unspecified 07/20/2008 03/06/20 13 Overview: Hct 32%, MCV 92 in 3-09 Overweight(278.02) 07/15/2008 4 Overview: Declined sleep testing despite CABG as of 06-29 Disorders of bursae and tend ons in shoulder region, unspecified 05/26/2008 03/06/2013 Overview: Keilasler recommended PT in 03-30: also started pt on Etodolac 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 documented as of this encounter (statuses as of 07/28/2023) [facility] History of Past illness Narrative* Problem Noted Date Diagnosed Date Resolved Date Acute bilateral low back cj n without sciatica 12/01/2015 12/12/2016 CKD (chronic kidney disease) stage 3, GFR 30-59 ml/min 06/28/2015 11/07/2021 Right inguinal hernia 12/25/20122012 Dysuria 09/04/2012 03/06/2013 Anemia, unspecified 07/20/2008 03/06/20 13 Overview: Hct 32%, MCV 92 in 3- Overweight(278.02) 07/15/2008 4 Overview: Declined sleep testing despite CABG as of 06-29 Disorders of bursae and tend ons in shoulder region, unspecified 05/26/2008 03/06/2013 Overview: Keilasler recommended PT in 03-30: also started pt on Etodolac 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 documented as of this encounter (statuses as of 08/02/2023) [facility] History of Past illness Narrative* Problem Noted Date Diagnosed Date Resolved Date Acute bilateral low back cj n without sciatica 12/01/2015 12/12/2016 CKD (chronic kidney disease) stage 3, GFR 30-59 ml/min 06/28/2015 11/07/2021 Right inguinal hernia 12/25/20122012 Dysuria 09/04/2012 03/06/2013 Anemia, unspecified 07/20/2008 03/06/20 13 Overview: Hct 32%, MCV 92 in 3- Overweight(278.02) 07/15/2008 4 Overview: Declined sleep testing despite CABG as of 06-29 Disorders of bursae and tend ons in shoulder region, unspecified 05/26/2008 03/06/2013 Overview: Keilasler recommended PT in 03-30: also started pt on Etodolac 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 documented as of this encounter (statuses as of 08/07/2023) [facility] History of Past illness Narrative* Problem Noted Date Diagnosed Date Resolved Date Acute bilateral low back cj n without sciatica 12/01/2015 12/12/2016 CKD (chronic kidney disease) stage 3, GFR 30-59 ml/min 06/28/2015 11/07/2021 Right inguinal hernia 12/25/20122012 Dysuria 09/04/2012 03/06/2013 Anemia, unspecified 07/20/2008 03/06/20 13 Overview: Hct 32%, MCV 92 in 3- Overweight(278.02) 07/15/2008 4 Overview: Declined sleep testing despite CABG as of 06-29 Disorders of bursae and tend ons in shoulder region, unspecified 05/26/2008 03/06/2013 Overview: Keilasler recommended PT in 03-30: also started pt on Etodolac 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 documented as of this encounter (statuses as of 08/08/2023) [facility] History of Past illness Narrative* Problem Noted Date Diagnosed Date Resolved Date Acute bilateral low back cj n without sciatica 12/01/2015 12/12/2016 CKD (chronic kidney disease) stage 3, GFR 30-59 ml/min 06/28/2015 11/07/2021 Right inguinal hernia 12/25/20122012 Dysuria 09/04/2012 03/06/2013 Anemia, unspecified 07/20/2008 03/06/20 13 Overview: Hct 32%, MCV 92 in 3- Overweight(278.02) 07/15/2008 4 Overview: Declined sleep testing despite CABG as of 06-29 Disorders of bursae and tend ons in shoulder region, unspecified 05/26/2008 03/06/2013 Overview: Keyshawn recommended PT in 03-30: also started pt on Etodolac 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 documented as of this encounter (statuses as of 08/09/2023) [facility] Evaluation note* Diagnosis Onset Date Resolution Status Fatigue acute 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, 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 Essential hypertension chron ic Pure hypercholesterolemia [facility] Work Phone: 1(151) 931-952603-01-2009 Evaluation note* Diagnosis Onset Date Resolution Status 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, 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 Dizziness chronic Essential hypertension chron ic Pure hypercholesterolemia [facility] Work Phone: 1(283) 482-289903-01-2009 Evaluation note* Diagnosis Onset Date Resolution Status 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, 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 Carotid artery disease chron ic Essential hypertension chron ic Pure hypercholesterolemia [facility] Work Phone: 1(560) 549-576403-01-2009 Evaluation note* Diagnosis Onset Date Resolution Status 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, 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 Carotid artery disease chron ic Essential hypertension chron ic Pure hypercholesterolemia [place] 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 Prince Celeste MD Status:A DM IN Location: [place] [address] Assessment & Plan Assessment/Plan (1) Herpes zoster: PLAN: Feeling better, lesions scabbed, MRI reviewed. Ok for d/c home with one more week po valtrex 1gm tid with ophtho followup. D/w primary team, thank you (2) 6th nerve palsy: HPI Consult Data Date of Consult: 07/18/23 HPI Narrative Reason for Consultation: shingles HPI Narrative: SEDA MENCHACA, is a 77 M with h/o DM, hit his head on garage door about 10 days ago, developed painful lesions on L upper face, saw PCP, dx with shingles. Started on valtrex, lesions crusted. Saw ophtho and concern for new double vision. Sent to ED, admitted on iv acyclovir. Feeling better, no other lesionson his body. No prior shingles vaccine. Double vision is better. Full ROS performed and neg except as noted above. [facility] Medical History Abnormal result of cardiovascular function study Abnormal stress test Atherosclerotic heart disease of [place] coronary artery without angina pectoris Chest pain, precordial Diabetes mellitus type 2 with peripheral artery disease Dizziness Dyspnea, unspecified Edema Essential hypertension Family history of completed stroke Family history of ischemic heart disease and other diseases of the circulatory system Fatigue Fatigue Herpes zoster Hypertension Long-term use of high-risk medication Old myocardial infarction Pure hypercholesterolemia Home Medications nitroglycerin 0.4 mg sublingual tablet 0.4 mg sublingual Q5M PRN Chest Pain 05/12/14 [History Last Taken Unknown] tamsulosin 0.4 mg capsule 0.4 mg PO DAILY urine flow 05/12/14 [History Last Taken 07/16/23] sildenafil 100 mg tablet (Viagra) 100 mg PO DAILY PRN sexual activity 03/12/19 [History Last Taken Unknown] metformin 500 mg tablet 1,000 mg PO DAILY diabetes 05/24/20 [History Last Taken 07/17/23] acetaminophen 500 mg tablet (Tylenol Extra Strength) 500 mg PO Q6H PRN pain, fever 10/05/21 [History Last Taken Unknown] cetirizine 10 mg tablet 10 mg PO DAILY sinus 10/05/21 [History Last Taken 07/17/23] amlodipine 10 mg tablet 10 mg PO QDAY blood prerssure #90 tabs 02/19/23 [Rx Last Taken 07/17/23] metoprolol tartrate 50 mg tablet 50 mg PO BID heart #180 tabs 02/19/23 [Rx Last Taken 07/17/23 08:52] atorvastatin 40 mg tablet 40 mg PO QHS cholesterol #90 tabs 06/07/23 [Rx Last Taken 07/16/23] glipizide 2.5 mg tablet, extended release 24 hr 2.5 mg PO DAILY diabetes 06/07/23 [History Last Taken 07/17/23] gabapentin 100 mg capsule 200 mg PO QHS shingle pain at night time 07/17/23 [History Last Taken 07/16/23] multivitamin with minerals-folic acid 80 mcg chewable tablet (Centrum Adult 50 Plus) 1 tab PO DAILY suppliment 07/17/23 [History Last Taken 07/17/23] eitbucqh-jnxkdutyf-hwhdhxyx 3.5 mg/mL-10,000 unit/mL-0.1% eye drops 1 drp LEFT EYE 4X/DAY shingles 07/17/23 [History Last Taken 07/17/23] valacyclovir 1 gram tablet 1,000 mg PO TID shingles 07/17/23 [History Last Taken 07/17/23] valacyclovir 1 gram tablet (Valtrex) 1,000 mg PO TID 4 days #12 tabs 07/18/23 [Rx Last Taken Unknown] Allergy/AdvReac Type Severity Reaction Status Date / Time Penicillins Allergy Unknown Verified 06/07/23 13:47 Family History Mother CVA (cerebral vascular accident) Brother CAD (coronary artery disease) Surgical History Aortocoronary bypass status (~06/30/08) History of carpal tunnel surgery Social History (Updated 07/17/23 @ 15:39 by Kiara Gloria) Smoking Status: Former smoker alcohol intake: never Physical Exam Const alert, oriented x3 and no apparent distress General Appearance: cooperative HEENT HEENT Narrative: Scabbed lesions on L upper face including nose Eyes PERRL Eyes Narrative: some diplopia and clonus Neck supple and nodes Resp normal air movement and clear to auscultation bilaterally Cardio regular rate and regular rhythm GI soft to palpation, non-tender and non-distended Extremity General Extremity: Negative for edema Skin Skin Narrative: no other rash Neuro Neuro Narrative: as above Lab / Micro Data Attestation: I reviewed the patient's lab results. 07/18/23 06:10 07/18/23 06:10 Labs: Laboratory Results - last 24 hr 07/17/23 16:04: POC Glucose 232 H 07/17/23 21:56: POC Glucose 155 H 07/18/23 06:10: WBC 11.4 H, RBC 4.61, Hgb 14.1, Hct 42.5, MCV 92.2, MCH 30.6, MCHC 33.2, RDW Std Deviation 46.5 H, RDW Coeff of Mary 13.6, Plt Count 286, MPV 10.6, Immature Gran % (Auto) 0.400, Neut % (Auto) 66.0, Lymph % (Auto) 23.2, [place] % (Auto) 9.1, Eos % (Auto) 0.7, Baso % (Auto) 0.6, Absolute Neuts (auto) 7.5, Absolute Lymphs (auto) 2.64, Nucleated RBC % 0, Sodium 138, Potassium 3.3 L, Chloride 103, Carbon Dioxide 28.0, Anion Gap 7, BUN 23 H, Creatinine 1.45 H, Estim Creat Clear Calc 37.11, Est GFR (MDRD) Af Amer 61, Est GFR (MDRD) Non-Af 50 L, BUN/Creatinine Ratio 15.9, Glucose 151 H, Calcium 9.3 07/18/23 06:14: POC Glucose 163 H 07/18/23 11:55: POC Glucose 217 H Imaging Radiology Impression Brain MRI 07/17/23 15:01 IMPRESSION: 1. Slight disconjugate gaze with medial deviation left eye compared to the right as could be seen with a left abducens nerve palsy. No corollary abnormal signal along the course abducens nerve with normal appearance of the orbits. Note that this exam is of limited utility due to motion artifact. Additionally post contrast imaging would be needed to display abnormal nerve enhancement is present. Patient with need to be still during the exam. 2. Small right mastoid effusion. 3. Moderate increased T2 and FLAIR signal periventricular white matter suggesting chronic small vessel ischemic changes. Electronically Signed: Joe Del Valle DO at 20:58 EDT , 07/18/23 1622 <Electronically signed by Elliot Joyce MD> Cosigner Signature (if applicable): CC: Dr. Reynaldo Yin DO; Dr. Elliot Joyce MD; Dr. Prince Celeste MD~ Signed [facility] Work Phone: Consult note Author Wendy Cortez [facility] July 18, 2023 4:15pm Note Date/Time July 18, 2023 4:1 5pm [facility] Medical Records Department [address] [place] [id number] Counseling Note - Pharmacy 07/18/23 1614 MR#: [id number] Acct: [id number] Name: SEDA MENCHACA Rep #:[id number] : 1945 77 From: Wendy Cortez PCP: Dr. Prince Celeste MD Status:A DM IN Y Location: [facility] [id number] Pharmacy [place] Med Reconciliation Pharmacy Service has performed discharge medication reconciliation for this patient. Rx sent for 4 more days of valtrex, not a new medication, did not apprise counselor. The patient's discharge medication list was reviewed for discrepancies and discrepancies were resolved. Medications at Discharge Home Medications nitroglycerin 0.4 mg sublingual tablet 0.4 mg sublingual Q5M PRN Chest Pain 05/12/14 tamsulosin 0.4 mg capsule 0.4 mg PO DAILY urine flow 05/12/14 sildenafil 100 mg tablet (Viagra) 100 mg PO DAILY PRN sexual activity 03/12/19 metformin 500 mg tablet 1,000 mg PO DAILY diabetes 05/24/20 acetaminophen 500 mg tablet (Tylenol Extra Strength) 500 mg PO Q6H PRN pain, fever 10/05/21 cetirizine 10 mg tablet 10 mg PO DAILY sinus 10/05/21 amlodipine 10 mg tablet 10 mg PO QDAY blood prerssure #90 tabs 02/19/23 metoprolol tartrate 50 mg tablet 50 mg PO BID heart #180 tabs 02/19/23 atorvastatin 40 mg tablet 40 mg PO QHS cholesterol #90 tabs 06/07/23 glipizide 2.5 mg tablet, extended release 24 hr 2.5 mg PO DAILY diabetes 06/07/23 gabapentin 100 mg capsule 200 mg PO QHS shingle pain at night time 07/17/23 multivitamin with minerals-folic acid 80 mcg chewable tablet (Centrum Adult 50 Plus) 1 tab PO DAILY suppliment 07/17/23 kldkkssw-cwsjrbebw-phypjuhv 3.5 mg/mL-10,000 unit/mL-0.1% eye drops 1 drp LEFT EYE 4X/DAY shingles 07/17/23 valacyclovir 1 gram tablet 1,000 mg PO TID shingles 07/17/23 valacyclovir 1 gram tablet (Valtrex) 1,000 mg PO TID 4 days #12 tabs 07/18/23 07/18/23 7425 <Electronically signed by Wendy Cortez> Date _ Wendy Cortez Cosigner Signature (if applicable): Date CC: ~ Signed [facility] Work Phone: Discharge summary Author Srikanth Edwards [facility] July 18, 2023 3:46pm Note Date/Time July 18, 2023 3:3 7pm [facility] Medical Records Department [address] [place] [address] Instructions for Home/Discharge Instructions 07/18/23 1536 MR#: [id number] Acct: [id number] Name: SEDA MENCHACA Rep #:[id number] : 1945 77 From: Srikanth brewster MD PCP: Dr. Prince Celeste MD Status:A DM IN Discharge Instructions Diet Discharge Diet: Low fat / Low cholesterol and Carb Control Diet Activity Discharge Activity: Return to Normal Activity Dressing / Incision Call your doctor if you observe: Fever of 101 or Higher, Shortness of breath, Dizziness, Fainting spells, Swelling in the ankles, Chest pain and Increased palpitations (irregular heartbeat) Follow Up Care Test Results: Test results from this visit will be discussed in further detail at your follow- up appointment, if applicable. Discharge Plan Admission Admit Date/Time: 07/17/23 14:36 Attending Provider: Srikanth Edwards Primary Care Provider: Prince Celeste Consulting Providers: Elliot Joyce; Reynaldo Yin Instructions Patient Instructions: Shingles (Herpes Zoster), ED Shingles (Herpes Zoster) Discharge Orders/Prescriptions Prescriptions: New valacyclovir [Valtrex] 1 gram tablet 1,000 mg PO TID 4 Days Qty: 12 0RF Rx Instructions: Start when your first prescription is completed to complete 14 days of treatment total. Continued sildenafil [Viagra] 100 mg tablet 100 mg PO DAILY PRN (Reason: sexual activity) cetirizine 10 mg tablet 10 mg PO DAILY acetaminophen [Tylenol Extra Strength] 500 mg tablet 500 mg PO Q6H PRN (Reason: pain, fever) glipizide 2.5 mg tablet extended release 24hr 2.5 mg PO DAILY tamsulosin 0.4 MG capsule 0.4 mg PO DAILY nitroglycerin 0.4 MG tablet 0.4 mg SUBLINGUAL Q5M PRN (Reason: Chest Pain) metformin 500 mg tablet 1,000 mg PO DAILY valacyclovir 1 gram tablet 1,000 mg PO TID prednisone 20 mg tablet 20 mg PO DAILY neomycin-polymyxin B-dexameth 3.5mg/mL-10,000 unit/mL-0.1 % drops,suspension 1 drp LEFT EYE 4X/DAY gabapentin 100 mg capsule 200 mg PO QHS Centrum Adult 50 Plus 80 mcg tablet,chewable 1 tab PO DAILY amlodipine 10 mg tablet 10 mg PO QDAY Qty: 90 3RF metoprolol tartrate 50 mg tablet 50 mg PO BID Qty: 180 3RF atorvastatin 40 mg tablet 40 mg PO QHS Qty: 90 3RF Referrals / Follow Up: Prince Celeste MD [Primary Care Provider] - Within 1 Week Disposition Disposition (needs filled in before D/C Order can be placed): Home, Self Care 07/18/23 1546<Electronically signed by Srikanth Edwards MD>Srikanth Edwards MD CC: Dr. Reynaldo Yin DO; Dr. Elliot Joyce MD; Dr. Prince Celeste MD ~ Signed [facility] Work Phone: Discharge summary Author Srikanth Edwards [facility] July 18, 2023 3:52pm Note Date/Time July 18, 2023 3:5 1pm [facility] Medical Records Department [address] [place] [id number] Discharge Summary 07/18/237 MR#: [id number] Acct: [id number] Name: SEDA MENCHACA Rep #:[id number] : 1945 77 From: Srikanth brewster MD PCP: Dr. Prince Celeste MD Status:A DM IN Location: [place] [address]- 1 Providers Date of Admission: 07/17/23 Primary Care Physician: Dr. 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: Onc/Wound/automotive general manager Routine Comment: Reason For Visit: HERPES ZOSTER, 6TH [address] PALSY Diagnosis Discharge Diagnosis (1) Herpes zoster: Status: Acute Code(s): B02.9 - Zoster without complications Medications at Discharge Home Medications nitroglycerin 0.4 mg sublingual tablet 0.4 mg sublingual Q5M PRN Chest Pain 05/12/14 tamsulosin 0.4 mg capsule 0.4 mg PO DAILY urine flow 05/12/14 sildenafil 100 mg tablet (Viagra) 100 mg PO DAILY PRN sexual activity 03/12/19 metformin 500 mg tablet 1,000 mg PO DAILY diabetes 05/24/20 acetaminophen 500 mg tablet (Tylenol Extra Strength) 500 mg PO Q6H PRN pain, fever 10/05/21 cetirizine 10 mg tablet 10 mg PO DAILY sinus 10/05/21 amlodipine 10 mg tablet 10 mg PO QDAY blood prerssure #90 tabs 02/19/23 metoprolol tartrate 50 mg tablet 50 mg PO BID heart #180 tabs 02/19/23 atorvastatin 40 mg tablet 40 mg PO QHS cholesterol #90 tabs 06/07/23 glipizide 2.5 mg tablet, extended release 24 hr 2.5 mg PO DAILY diabetes 06/07/23 gabapentin 100 mg capsule 200 mg PO QHS shingle pain at night time 07/17/23 multivitamin with minerals-folic acid 80 mcg chewable tablet (Centrum Adult 50 Plus) 1 tab PO DAILY suppliment 07/17/23 hxfxiplf-psxxjfycp-fcnuwjbq 3.5 mg/mL-10,000 unit/mL-0.1% eye drops 1 drp LEFT EYE 4X/DAY shingles 07/17/23 prednisone 20 mg tablet 20 mg PO DAILY steroid 07/17/23 valacyclovir 1 gram tablet 1,000 mg PO TID shingles 07/17/23 valacyclovir 1 gram tablet (Valtrex) 1,000 mg PO TID 4 days #12 tabs 07/18/23 Hospital Course Operations None Procedures None Summary of Care Provided Minutes Spent on Discharge: 37 Hospital Course: Per HPI: SEDA MENCHACA, is a 77 M who presents with rash or less on his face. Patient hit his head on his garage door 2 Mondays ago and saw his primary care doctor last Sunday and was diagnosed with shingles. Patient was started on valganciclovir as well as prednisone. Despite that it was getting worse. Patient was referred over to dermatology who subsequent referred him to ophthalmology. At the ophthalmology office, there is concerned about a left 6 cranial nerve palsy. Patient was sent to the emergency room. Patient received acyclovir after speaking with infectious disease. But given the severity of hiszoster, hospital service was contacted for admission. Patient denies any history of shingles in the past. Hospital Course: 1. Herpes zoster of the left face with possible left 6th cranial nerve involvement?77-year-old male was diagnosed with shingles on his left face about a week ago and was started on Valtrex 1 g p.o. 3 times daily and has been takingthat for 7 days. The entirety of the rash is crusted over with no signs of cellulitis and both patient and family states he looks much better than he did in 3 to 4 days ago. He went to see an acls nurse who thought that his [id number] cranial nerve was possibly involved, MRI was obtained which demonstrated a slight disconjugate gaze with medial deviation of the left eye, there is also a T2 and FLAIR signal that demonstrated possible chronic small vessel ischemic changes. No signs on evaluation for encephalitis. I discussed the case with infectious disease who felt that he was stable enough to go home and that he would need to complete 14 days total of treatment so a prescription was sent into his pharmacy for 4 more days of Valtrex 1 g p.o. 3 times daily. I discussed with the patient and the family that the plan for discharge today expressed understanding of the risk benefits of going home and he would really like to go home today. He denies any significant pain over the shingles rash states that in the beginning he has significant neuropathic pain but that has essentially resolved. 2. Essential hypertension, hyperlipidemia, coronary artery disease, type 2 diabetes, CKD 3a, BPH are all chronic medical conditions which complicate his care. His home medications were continued where appropriate Physical Exam Narrative General: Alert, Oriented x3, Cooperative, No apparent distress HEENT: Atraumatic, PERRLA, EOMI, Normocephalic, shingle scar on the left face all lesions are crusted no signs of super bacterial infection. Left lateral gaze does initiate double vision Oral: Moist Mucosa Neck: Supple, No JVD Lungs: Clear to auscultation, Normal air movement, No rhonchi, No wheeze, No rales Cardiovascular: Regular rate, Regular Rhythm, Normal S1, Normal S2, No murmurs Abdomen: Soft, Non Tender, Non-Distended, No Hepato-splenomegaly Extremities: No edema, Capillary Refill Less than 3 Seconds Skin: No rashes, No breakdown Musculoskeletal: No Tenderness to Palpation of Joints or Extremities Neurological: No focal neurological deficits, Motor Exam 5/5 strength throughout, Sensory exam intact to light touch and pain Psych/Mental Status: Normal Affect, Appropriate Weight / BMI Weight Weight: 139 lb 12.369 oz Body Mass Index (BMI) 23.2 ABG / Lab / Microbiology Data 07/18/23 06:10 07/18/23 06:10 Laboratory: Laboratory Results - last 24 hr 07/17/23 16:04: POC Glucose 232 H 07/17/23 21:56: POC Glucose 155 H 07/18/23 06:10: WBC 11.4 H, RBC 4.61, Hgb 14.1, Hct 42.5, MCV 92.2, MCH 30.6, MCHC 33.2, RDW Std Deviation 46.5 H, RDW Coeff of Mary 13.6, Plt Count 286, MPV 10.6, Immature Gran % (Auto) 0.400, Neut % (Auto) 66.0, Lymph % (Auto) 23.2, [place] % (Auto) 9.1, Eos % (Auto) 0.7, Baso % (Auto) 0.6, Absolute Neuts (auto) 7.5, Absolute Lymphs (auto) 2.64, Nucleated RBC % 0, Sodium 138, Potassium 3.3 L, Chloride 103, Carbon Dioxide 28.0, Anion Gap 7, BUN 23 H, Creatinine 1.45 H, Estim Creat Clear Calc 37.11, Est GFR (MDRD) Af Amer 61, Est GFR (MDRD) Non-Af 50 L, BUN/Creatinine Ratio 15.9, Glucose 151 H, Calcium 9.3 07/18/23 06:14: POC Glucose 163 H 07/18/23 11:55: POC Glucose 217 H Radiography Diagnostic Testing: Radiology Impression Brain MRI 07/17/23 15:01 IMPRESSION: 1. Slight disconjugate gaze with medial deviation left eye compared to the right as could be seen with a left abducens nerve palsy. No corollary abnormal signal along the course abducens nerve with normal appearance of the orbits. Note that this exam is of limited utility due to motion artifact. Additionally post contrast imaging would be needed to display abnormal nerve enhancement is present. Patient with need to be still during the exam. 2. Small right mastoid effusion. 3. Moderate increased T2 and FLAIR signal periventricular white matter suggesting chronic small vessel ischemic changes. Electronically Signed: Joe Del Valle, at 20:58 EDT , D/C Instructions Discharge Diet: Low fat / Low cholesterol and Carb Control Diet Call your doctor if you observe: Fever of 101 or Higher, Shortness of breath, Dizziness, Fainting spells, Swelling in the ankles, Chest pain and Increased palpitations (irregular heartbeat) Meaningful Use Info Meaningful Use Diagnoses (Choose all that apply): None applicable Discharge Plan Admission Admit Date/Time: 07/17/23 14:36 Attending Provider: Srikanth Edwards Primary Care Provider: Prince Celeste Consulting Providers: Elliot Joyce; Reynaldo Yin Instructions Patient Instructions: Shingles (Herpes Zoster), ED Shingles (Herpes Zoster) Discharge Orders/Prescriptions Prescriptions: New valacyclovir [Valtrex] 1 gram tablet 1,000 mg PO TID 4 Days Qty: 12 0RF Rx Instructions: Start when your first prescription is completed to complete 14 days of treatment total. Continued sildenafil [Viagra] 100 mg tablet 100 mg PO DAILY PRN (Reason: sexual activity) cetirizine 10 mg tablet 10 mg PO DAILY acetaminophen [Tylenol Extra Strength] 500 mg tablet 500 mg PO Q6H PRN (Reason: pain, fever) glipizide 2.5 mg tablet extended release 24hr 2.5 mg PO DAILY tamsulosin 0.4 MG capsule 0.4 mg PO DAILY nitroglycerin 0.4 MG tablet 0.4 mg SUBLINGUAL Q5M PRN (Reason: Chest Pain) metformin 500 mg tablet 1,000 mg PO DAILY valacyclovir 1 gram tablet 1,000 mg PO TID prednisone 20 mg tablet 20 mg PO DAILY neomycin-polymyxin B-dexameth 3.5mg/mL-10,000 unit/mL-0.1 % drops,suspension 1 drp LEFT EYE 4X/DAY gabapentin 100 mg capsule 200 mg PO QHS Centrum Adult 50 Plus 80 mcg tablet,chewable 1 tab PO DAILY amlodipine 10 mg tablet 10 mg PO QDAY Qty: 90 3RF metoprolol tartrate 50 mg tablet 50 mg PO BID Qty: 180 3RF atorvastatin 40 mg tablet 40 mg PO QHS Qty: 90 3RF Referrals / Follow Up: Prince Celeste MD [Primary Care Provider] - Within 1 Week Disposition Disposition (needs filled in before D/C Order can be placed): Home, Self Care Charges/Coding Visit Charges Inpatient E&M: 47630 Disch Hosp >30min 07/18/23 1552 <Electronically signed by Srikanth Edwards MD> Cosigner Signature (if applicable): CC: Dr. Srikanth Edwards MD; Dr. Prince Celeste MD~ Signed [facility] Work Phone: evaluation noteNo assessment information available [facility] Work Phone: Evaluation note* Diagnosis Type 2 diabetes mellitus with stage 3 chronic kidney disease, without long-term current use of insulin (HCC) documented in this encounter [facility] note* Diagnosis Allergic conjunctivitis of both eyes Other chronic allergic conjunctivitis [facility]* Diagnosis Medicare annual wellness visit, subsequent- Primary Routine general medical examination at a health care facility Hypertensive kidney disease with stage 3b chronic kidney disease (HCC) Type 2 diabetes mellitus with stage 3b chronic kidney disease, without long-term current use of insulin (HCC) Essential hypertension Unspecified essential hypertension Pure hypercholesterolemia [facility]* Diagnosis Impotence of organic origin [facility]* Diagnosis Impotence of organic origin [facility]* Diagnosis Type 2 diabetes mellitus with stage 3b chronic kidney disease, without long-term current use of insulin (HCC)- Primary Hypertensive kidney disease with stage 3b chronic kidney disease (HCC) Essential hypertension Unspecified essential hypertension Pure hypercholesterolemia Insomnia, unspecified type Acute foot pain, left documented in this encounter [facility] note* Diagnosis Type 2 diabetes mellitus with stage 3b chronic kidney disease, without long-term current use of insulin (HCC)- Primary Acute foot pain, left [facility] Diagnosis Other diabetic neurological complication associated with type 2 diabetes mellitus (HCC)- Primary Sprain of anterior talofibular ligament of left ankle, initial encounter Hyperkeratosis Acquired keratoderma [facility]* Diagnosis Insomnia, unspecified type [facility]* Diagnosis Elbow pain, left- Primary Pain in joint, upper arm [facility]* Diagnosis Medicare annual wellness visit, subsequent- Primary Routine general medical examination at a health care facility Insomnia, unspecified type Type 2 diabetes mellitus with stage 3b chronic kidney disease, without long-term current use of insulin (HCC) Essential hypertension Unspecified essential hypertension Impotence of organic origin Malignant neoplasm of urinary bladder, unspecified site (HCC) Plantar wart of left foot Plantar wart Need for COVID-19 vaccine [facility]* Diagnosis Feared condition not demonstrated- Primary Person with feared complaint in whom no diagnosis was made [facility]* Diagnosis URI with cough and congestion- Primary Sore throat Acute pharyngitis Flu-like symptoms Other general symptoms [facility]* Diagnosis Other diabetic neurological complication associated with type 2 diabetes mellitus (HCC)- Primary Hyperkeratosis Acquired keratoderma [facility]* Diagnosis Post zoster neuralgia- Primary Herpes zoster with other nervous system complications [facility]* Diagnosis 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, left Diplopia Mouth sores Other and unspecified diseases of the oral soft tissues Post zoster neuralgia Herpes zoster with other nervous system complications [facility]* Diagnosis Post zoster neuralgia- Primary Herpes zoster with other nervous system complications [facility]* Diagnosis Post zoster neuralgia- Primary Herpes zoster with other nervous system complications [facility]* Diagnosis Post zoster neuralgia- Primary Herpes zoster with other nervous system complications [facility]* Diagnosis Type 2 diabetes mellitus with stage 3a chronic kidney disease, without long-term current use of insulin (HCC) [facility]* Diagnosis Post zoster neuralgia- Primary Herpes zoster with other nervous system complications [facility] Diagnosis Contusion of right great toe with damage to nail, initial encounter- Primary Subungual hematoma of great toe of right foot, initial encounter [facility] Diagnosis Post zoster neuralgia Herpes zoster with other nervous system complications [facility]* Diagnosis Hypoglycemia- Primary Hypoglycemia, unspecified Post zoster neuralgia Herpes zoster with other nervous system complications Type 2 diabetes mellitus with stage 3a chronic kidney disease, without long-term current use of insulin (HCC) Insomnia, unspecified type Impotence of organic origin [facility]* Diagnosis Medicare annual wellness visit, subsequent- Primary Routine general medical examination at a [facility] facility Post zoster neuralgia Herpes zoster with other nervous system complications Type 2 diabetes mellitus with stage 3a chronic kidney disease, without long-term current use of insulin (HCC) Essential hypertension Unspecified essential hypertension Need for COVID-19 vaccine [facility]* Diagnosis Contusion of right great toe with damage to nail, initial encounter [facility]* Diagnosis Elbow pain, left Pain in joint, upper arm [facility]* Diagnosis Acute foot pain, left [facility]* Diagnosis Arthritis of hand Unspecified arthropathy, hand [facility]* Diagnosis Post zoster neuralgia Herpes zoster with other nervous system complications Insomnia, unspecified type [facility]* Diagnosis Essential hypertension- Primary Unspecified essential hypertension Encounter for immunization Need for other specified prophylactic vaccination against single bacterial disease Type 2 diabetes mellitus with stage 3a chronic kidney disease, without long-term current use of insulin (HCC) Post zoster neuralgia Herpes zoster with other nervous system complications Pure hypercholesterolemia [facility]* Diagnosis Other diabetic neurological complication associated with type 2 diabetes mellitus (HCC)- Primary Hyperkeratosis Acquired keratoderma [facility]* Diagnosis Type 2 diabetes mellitus with stage 3a chronic kidney disease, without long-term current use of insulin (HCC) [facility] Diagnosis Left foot pain- Primary Pain in limb [facility] Diagnosis Left foot pain Pain in limb [facility] Additional Instructions Thank you for trusting us with your care today! Please take Tylenol (2 pills, 650 mg), ibuprofen (2 pills, 400 mg) every 6 hours as needed for pain and fever control. Please go to local pharmacy or drugstore and obtain Salonpas lidocaine patches apply these to your neck as directed. Please return to the emergency department if your symptoms change or worsen. Specifically develop trouble swallowing, loss of [id number]-[id number] length, loss of vision, facial drooping, difficulty talking, difficulty breathing. Please follow with your primary care physician for further outpatient evaluation and management and possibly an outpatient MRI.[facility] Work Phone: Reason for referral (narrative)* Diagnostic Procedure Only (Routine) - Closed Specialty Diagnoses / Procedures Referred By Contac t Referred To Contact XR IMAGING Diagnoses Elbow pain, left Procedures XR ELBOW SPECIAL VIEWS AP/LAT/OTHER LEFT RADEX ELBOW COMPLETE MINIMUM 3 VIEWS Patrice Olmos MD [address] [place] [address] Xr Imaging Referral ID Status Reason Start Date Expiration Date V isits Requested Visits Authorized [id number] Closed Auto-Generate d Referral 09/27/2022 10/27/2023 1 1 [facility] for referral (narrative)* Diagnostic Procedure Only (Urgent) - Pending Review Specialty Diagnoses / Procedures Referred By Contac t Referred To Contact XR IMAGING Diagnoses Contusion of right great toe with damage to nail, initial encounter Procedures XR TOE AP/LAT/OBL RIGHT RADEX TOE MINIMUM 2 VIEWS Shaina Daly APRN.CNP [address] [place] [address] [place] [address] Referral ID Status Reason Start Date Expiration Date Visits Requested Visits Authorized [id number] Pending Review Auto-Generat ed Referral 09/17/2023 10/16/2024 1 1 [facility] for referral (narrative)* Diagnostic Procedure Only (Urgent) - Closed Specialty Diagnoses / Procedures Referred By Contac t Referred To Contact XR IMAGING Diagnoses Contusion of right great toe with damage to nail, initial encounter Procedures XR TOE AP/LAT/OBL RIGHT RADEX TOE MINIMUM 2 VIEWS Shaina Daly APRN.CNP [address] [place] [address] [place] [address] Referral ID Status Reason Start Date Expiration Date V isits Requested Visits Authorized [id number] Closed Auto-Generate d Referral 09/17/2023 10/16/2024 1 1 [facility] for referral (narrative)* Diagnostic Procedure Only (Routine) - Closed Specialty Diagnoses / Procedures Referred By Contac t Referred To Contact XR IMAGING Diagnoses Elbow pain, left Procedures XR ELBOW SPECIAL VIEWS AP/LAT/OTHER LEFT RADEX ELBOW COMPLETE MINIMUM 3 VIEWS Patrice Olmos MD [facility] [place] [address] [place] [address] Referral ID Status Reason Start Date Expiration Date V isits Requested Visits Authorized [id number] Closed Auto-Generate d Referral 09/27/2022 10/27/2023 1 1 [facility] for referral (narrative)* Diagnostic Procedure Only (Routine) - Closed Specialty Diagnoses / Procedures Referred By Contac t Referred To Contact XR IMAGING Diagnoses Acute foot pain, left Procedures XR FOOT GENERAL 3V AP/LAT/OBL LEFT RADEX FOOT COMPLETE MINIMUM 3 VIEWS Prince Celeste MD [address] [place] [address] [place] [address] Referral ID Status Reason Start Date Expiration Date V isits Requested Visits Authorized [id number] Closed Auto-Generate d Referral 04/20/2022 05/20/2023 1 1 [facility] for referral (narrative)No reason for referral information [facility] Work Phone: Reason for visit Narrative* Diagnostic Procedure Only (Urgent) - Closed Specialty Diagnoses / Procedures Referred By Contac t Referred To Contact XR IMAGING Diagnoses Contusion of right great toe with damage to nail, initial encounter Procedures XR TOE AP/LAT/OBL RIGHT RADEX TOE MINIMUM 2 VIEWS Shaina Daly, SP.[employer] [address] [place] [address] [place] [address] Referral ID Status Reason Start Date Expiration Date V isits Requested Visits Authorized [id number] Closed Auto-Generate d Referral 09/17/2023 10/16/2024 1 1 [facility] for visit Narrative* Diagnostic Procedure Only (Routine) - Closed Specialty Diagnoses / Procedures Referred By Contac t Referred To Contact XR IMAGING Diagnoses Elbow pain, left Procedures XR ELBOW SPECIAL VIEWS AP/LAT/OTHER LEFT RADEX ELBOW COMPLETE MINIMUM 3 VIEWS Patrice Olmos MD [address] [place] [address] [place] [address] Referral ID Status Reason Start Date Expiration Date V isits Requested Visits Authorized [id number] Closed Auto-Generate d Referral 09/27/2022 10/27/2023 1 1 [facility] for visit Narrative* Diagnostic Procedure Only (Routine) - Closed Specialty Diagnoses / Procedures Referred By Contac t Referred To Contact XR IMAGING Diagnoses Acute foot pain, left Procedures XR FOOT GENERAL 3V AP/LAT/OBL LEFT RADEX FOOT COMPLETE MINIMUM 3 VIEWS Prince Celeste MD [address] [place] [address] [place] [address] Referral ID Status Reason Start Date Expiration Date V isits Requested Visits Authorized [id number] Closed Auto-Generate d Referral 04/20/2022 05/20/2023 1 1 [facility] for visit Narrative* Diagnostic Procedure Only (Routine) - Closed Specialty Diagnoses / Procedures Referred By Contac t Referred To Contact XR IMAGING Diagnoses Left foot pain Procedures XR FOOT GENERAL 3V AP/LAT/OBL LEFT RADEX FOOT COMPLETE MINIMUM 3 VIEWS Juanis Hawthorne M, JACKSCREW WORKER.TEXTILE PIN WORKER [address] [place] [address] Phone: tel: fax: [place] [id number] Referral ID Status Reason Start Date Expiration Date V isits Requested Visits Authorized [id number] Closed Auto-Generate d Referral 08/26/2024 09/25/2025 1 1 [facility] Chief Complaint and Reason for Visit Chief Complaint 2 orders Chief Complaint 2 orders E-ORDER Chief Complaint 2 orders E-ORDER 10 M FU FATIGUE CAD CABJ Reason for Visit Fatigue Aortocoronary bypass status Atherosclerotic heart disease of [place] coronary artery without angina pectoris Essential hypertension Pure hypercholesterolemia Chief Complaint DUE AROUND DATE LIST ED Chief Complaint DUE AROUND DATE LIST ED 8 mo f/u (former PFM pt) E ORDERS Reason for Visit Aortocoronary bypass status Atherosclerotic heart disease of [place] coronary artery without angina pectoris Dizziness Essential hypertension Pure hypercholesterolemia Chief Complaint DUE AROUND DATE LIST ED 8 mo f/u (former PFM pt) E ORDERS CAD/ASHD Amb Documentation Amb Documentation Reason for Visit Aortocoronary bypass status Atherosclerotic heart disease of [place] coronary artery without angina pectoris Dizziness Essential hypertension Pure hypercholesterolemia Chief Complaint E ORDERS 6 M FU Reason for Visit Aortocoronary bypass status Atherosclerotic heart disease of [place] coronary artery without angina pectoris Carotid artery disease Essential hypertension Pure hypercholesterolemia Chief Complaint E ORDERS 6 M FU HERPES ZOSTER, 6TH NEWVE PALSY HERPES ZOSTER, 6TH NEWVE PALSY HERPES ZOSTER, 6TH NEWVE PALSY Reason for Visit Aortocoronary bypass status Atherosclerotic heart disease of [place] coronary artery without angina pectoris Carotid artery disease Essential hypertension Pure hypercholesterolemia 6th nerve palsy Diabetes mellitus Diplopia Herpes zoster Chief Complaint E ORDERS 6 M FU HERPES ZOSTER, 6TH NEWVE PALSY HERPES ZOSTER, 6TH NEWVE PALSY HERPES ZOSTER, 6TH NEWVE PALSY NECK PAIN Reason for Visit Aortocoronary bypass status Atherosclerotic heart disease of [place] coronary artery without angina pectoris Carotid artery disease Essential hypertension Pure hypercholesterolemia 6th nerve palsy Diabetes mellitus Diplopia Herpes zoster Chief Complaint Admit Date 6 M FU July 07, 2024 2:1 9pm ASHD July 23, 2024 6:07 am ASHD July 24, 2024 12:4 0pm Reason for Visit Admit Date Aortic regurgitation July 07, 2024 2: 19pm Aortocoronary bypass status July 07, 2024 2:19pm Atherosclerotic heart diseas e of [place] coronary artery without angina pectoris July 07, 2024 2:19pm Carotid artery disease July 07, 2024 2:19pm Essential hypertension July 07, 2024 2:19pm Mitral regurgitation July 07, 2024 2: 19pm Pure hypercholesterolemia July 07 2:19pm Family History No Family History Records Found Relationship Condition Age at Onset Recorded Date/T tiffani mother Cerebrovascular accident (CVA) Unknown brother Coronary artery disease Unknown Advance Directives No Advanced Directives Records Found Advance Directive Response Recorded Date/ Time Living Will No May 12 9:43am Power 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 No May 12, 2014 9:43am Documents on File Type Date Recorded Patient Negative Assembler Expl anation Advance Directive(s) 06/09/2021 11:25 AM Advance Directive(s) 05/19/2021 4:05 PM Advance Directive(s) 04/07/2016 10:23 AM Advance Directive Response Recorded Date/ Time Living Will No May 12 8:43am Power 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 No May 12, 2014 8:43am Advance Directive Response Recorded Date/ Time Living Will No July 17, 2023 3:42pm Power 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 No July 16 3:42pm Advance Directive Response Recorded Date/ Time Living Will No September 02, 2023 2 :24pm Power 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 No September 02, 2023 2:24pm Reason for Referral Specialty Diagnoses / Procedures Referred By Tj mayfield Referred To Contact Podiatry Diagnoses Type 2 diabetes mellitus with stage 3b chronic kidney disease, without long-term current use of insulin (HCC) Acute foot pain, left Procedures CONSULT TO PODIATRY OFFICE/OUTPATIENT [facility] MDM 60-74 MINUTES Prince Celeste MD [address] [place] [address] Referral ID Status Reason Start Date Expiration Date Visits Requested Visits Authorized [id number] Pending Review PCP Requested Referral 05/05/2022 05/05/2023 1 1 Specialty Diagnoses / Procedures Referred By Tj mayfield Referred To Contact Pain Management Diagnoses Post zoster neuralgia Procedures CONSULT TO PAIN MGT OFFICE/OUTPATIENT [facility] MDM 60 MINUTES Prince Celeste MD [address] [place] [address] Referral ID Status Reason Start Date Expiration Date Visits Requested Visits Authorized [id number] Authorized PCP Requested Referral 08/01/2023 07/31/2024 1 1 Health Concerns Infection Onset Date Last Indicated Resolved Time COVID-19 Rule-Out 04/12/2023 04/12/2023 04/12/2023 11:56 PM EST Summary Purpose Additional Source Comments Goals (unrecognized section and content) Goals may be documented in a n alternate sectionGoals may be documented in an alternate sectionGoals may be documented in an alternate sectionGoals may be documented in an alternate sectionGoals may be documented in an alternate sectionGoals may be documented in an alternate sectionGoals may be documented in an alternate sectionGoals may be documented in an alternate sectionGoals may be documented in an alternate sectionGoals may be documented in an alternate sectionGoals may be documented in an alternate section Source Comments (unrecognize d section and content) In the event this informatio n is protected by the Federal Confidentiality of Alcohol and Drug Abuse Patient Records regulations: The Federal rules restrict any use of the information to criminally investigate or prosecute any alcohol or drug abuse patient.[facility] the event this information is protected by the Federal Confidentiality of Alcohol and Drug Abuse Patient Records regulations: The Federal rules restrict any use of the information to criminally investigate or prosecute any alcohol or drug abuse patient.[facility] HospitalIn the event this information is protected by the Federal Confidentiality of Alcohol and Drug Abuse Patient Records regulations: The Federal rules restrict any use of the information to criminally investigate or prosecute any alcohol or drug abuse patient.[facility] HospitalIn the event this information is protected by the Federal Confidentiality of Alcohol and Drug Abuse Patient Records regulations: The Federal rules restrict any use of the information to criminally investigate or prosecute any alcohol or drug abuse patient.[facility] HospitalIn the event this information is protected by the Federal Confidentiality of Alcohol and Drug Abuse Patient Records regulations: The Federal rules restrict any use of the information to criminally investigate or prosecute any alcohol or drug abuse patient.[facility] HospitalIn the event this information is protected by the Federal Confidentiality of Alcohol and Drug Abuse Patient Records regulations: The Federal rules restrict any use of the information to criminally investigate or prosecute any alcohol or drug abuse patient.[facility] HospitalIn the event this information is protected by the Federal Confidentiality of Alcohol and Drug Abuse Patient Records regulations: The Federal rules restrict any use of the information to criminally investigate or prosecute any alcohol or drug abuse patient.[facility] HospitalIn the event this information is protected by the Federal Confidentiality of Alcohol and Drug Abuse Patient Records regulations: The Federal rules restrict any use of the information to criminally investigate or prosecute any alcohol or drug abuse patient.[facility] HospitalIn the event this information is protected by the Federal Confidentiality of Alcohol and Drug Abuse Patient Records regulations: The Federal rules restrict any use of the information to criminally investigate or prosecute any alcohol or drug abuse patient.[facility] HospitalIn the event this information is protected by the Federal Confidentiality of Alcohol and Drug Abuse Patient Records regulations: The Federal rules restrict any use of the information to criminally investigate or prosecute any alcohol or drug abuse patient.[facility] HospitalIn the event this information is protected by the Federal Confidentiality of Alcohol and Drug Abuse Patient Records regulations: The Federal rules restrict any use of the information to criminally investigate or prosecute any alcohol or drug abuse patient.[facility] HospitalIn the event this information is protected by the Federal Confidentiality of Alcohol and Drug Abuse Patient Records regulations: The Federal rules restrict any use of the information to criminally investigate or prosecute any alcohol or drug abuse patient.[facility] HospitalIn the event this information is protected by the Federal Confidentiality of Alcohol and Drug Abuse Patient Records regulations: The Federal rules restrict any use of the information to criminally investigate or prosecute any alcohol or drug abuse patient.[facility] HospitalIn the event this information is protected by the Federal Confidentiality of Alcohol and Drug Abuse Patient Records regulations: The Federal rules restrict any use of the information to criminally investigate or prosecute any alcohol or drug abuse patient.[facility] HospitalIn the event this information is protected by the Federal Confidentiality of Alcohol and Drug Abuse Patient Records regulations: The Federal rules restrict any use of the information to criminally investigate or prosecute any alcohol or drug abuse patient.[facility] HospitalIn the event this information is protected by the Federal Confidentiality of Alcohol and Drug Abuse Patient Records regulations: The Federal rules restrict any use of the information to criminally investigate or prosecute any alcohol or drug abuse patient.[facility] HospitalIn the event this information is protected by the Federal Confidentiality of Alcohol and Drug Abuse Patient Records regulations: The Federal rules restrict any use of the information to criminally investigate or prosecute any alcohol or drug abuse patient.[facility] HospitalIn the event this information is protected by the Federal Confidentiality of Alcohol and Drug Abuse Patient Records regulations: The Federal rules restrict any use of the information to criminally investigate or prosecute any alcohol or drug abuse patient.[facility] HospitalIn the event this information is protected by the Federal Confidentiality of Alcohol and Drug Abuse Patient Records regulations: The Federal rules restrict any use of the information to criminally investigate or prosecute any alcohol or drug abuse patient.[facility] HospitalIn the event this information is protected by the Federal Confidentiality of Alcohol and Drug Abuse Patient Records regulations: The Federal rules restrict any use of the information to criminally investigate or prosecute any alcohol or drug abuse patient.[facility] HospitalIn the event this information is protected by the Federal Confidentiality of Alcohol and Drug Abuse Patient Records regulations: The Federal rules restrict any use of the information to criminally investigate or prosecute any alcohol or drug abuse patient.[facility] HospitalIn the event this information is protected by the Federal Confidentiality of Alcohol and Drug Abuse Patient Records regulations: The Federal rules restrict any use of the information to criminally investigate or prosecute any alcohol or drug abuse patient.[facility] HospitalIn the event this information is protected by the Federal Confidentiality of Alcohol and Drug Abuse Patient Records regulations: The Federal rules restrict any use of the information to criminally investigate or prosecute any alcohol or drug abuse patient.[facility] HospitalIn the event this information is protected by the Federal Confidentiality of Alcohol and Drug Abuse Patient Records regulations: The Federal rules restrict any use of the information to criminally investigate or prosecute any alcohol or drug abuse patient.[facility] HospitalIn the event this information is protected by the Federal Confidentiality of Alcohol and Drug Abuse Patient Records regulations: The Federal rules restrict any use of the information to criminally investigate or prosecute any alcohol or drug abuse patient.[facility] HospitalIn the event this information is protected by the Federal Confidentiality of Alcohol and Drug Abuse Patient Records regulations: The Federal rules restrict any use of the information to criminally investigate or prosecute any alcohol or drug abuse patient.[facility] HospitalIn the event this information is protected by the Federal Confidentiality of Alcohol and Drug Abuse Patient Records regulations: The Federal rules restrict any use of the information to criminally investigate or prosecute any alcohol or drug abuse patient.[facility] HospitalIn the event this information is protected by the Federal Confidentiality of Alcohol and Drug Abuse Patient Records regulations: The Federal rules restrict any use of the information to criminally investigate or prosecute any alcohol or drug abuse patient.[facility] HospitalIn the event this information is protected by the Federal Confidentiality of Alcohol and Drug Abuse Patient Records regulations: The Federal rules restrict any use of the information to criminally investigate or prosecute any alcohol or drug abuse patient.[facility]In the event this information is protected by the Federal Confidentiality of Alcohol and Drug Abuse Patient Records regulations: The Federal rules restrict any use of the information to criminally investigate or prosecute any alcohol or drug abuse patient.[facility] HospitalIn the event this information is protected by the Federal Confidentiality of Alcohol and Drug Abuse Patient Records regulations: The Federal rules restrict any use of the information to criminally investigate or prosecute any alcohol or drug abuse patient.[facility] HospitalIn the event this information is protected by the Federal Confidentiality of Alcohol and Drug Abuse Patient Records regulations: The Federal rules restrict any use of the information to criminally investigate or prosecute any alcohol or drug abuse patient.[facility] HospitalIn the event this information is protected by the Federal Confidentiality of Alcohol and Drug Abuse Patient Records regulations: The Federal rules restrict any use of the information to criminally investigate or prosecute any alcohol or drug abuse patient.[facility] HospitalIn the event this information is protected by the Federal Confidentiality of Alcohol and Drug Abuse Patient Records regulations: The Federal rules restrict any use of the information to criminally investigate or prosecute any alcohol or drug abuse patient.[facility] HospitalIn the event this information is protected by the Federal Confidentiality of Alcohol and Drug Abuse Patient Records regulations: The Federal rules restrict any use of the information to criminally investigate or prosecute any alcohol or drug abuse patient.[facility] HospitalIn the event this information is protected by the Federal Confidentiality of Alcohol and Drug Abuse Patient Records regulations: The Federal rules restrict any use of the information to criminally investigate or prosecute any alcohol or drug abuse patient.[facility] HospitalIn the event this information is protected by the Federal Confidentiality of Alcohol and Drug Abuse Patient Records regulations: The Federal rules restrict any use of the information to criminally investigate or prosecute any alcohol or drug abuse patient.[facility] HospitalIn the event this information is protected by the Federal Confidentiality of Alcohol and Drug Abuse Patient Records regulations: The Federal rules restrict any use of the information to criminally investigate or prosecute any alcohol or drug abuse patient.[facility] HospitalIn the event this information is protected by the Federal Confidentiality of Alcohol and Drug Abuse Patient Records regulations: The Federal rules restrict any use of the information to criminally investigate or prosecute any alcohol or drug abuse patient.[facility] HospitalIn the event this information is protected by the Federal Confidentiality of Alcohol and Drug Abuse Patient Records regulations: The Federal rules restrict any use of the information to criminally investigate or prosecute any alcohol or drug abuse patient.[facility] HospitalIn the event this information is protected by the Federal Confidentiality of Alcohol and Drug Abuse Patient Records regulations: The Federal rules restrict any use of the information to criminally investigate or prosecute any alcohol or drug abuse patient.[facility] HospitalIn the event this information is protected by the Federal Confidentiality of Alcohol and Drug Abuse Patient Records regulations: The Federal rules restrict any use of the information to criminally investigate or prosecute any alcohol or drug abuse patient.[facility] HospitalIn the event this information is protected by the Federal Confidentiality of Alcohol and Drug Abuse Patient Records regulations: The Federal rules restrict any use of the information to criminally investigate or prosecute any alcohol or drug abuse patient.[facility] HospitalIn the event this information is protected by the Federal Confidentiality of Alcohol and Drug Abuse Patient Records regulations: The Federal rules restrict any use of the information to criminally investigate or prosecute any alcohol or drug abuse patient.[facility] HospitalIn the event this information is protected by the Federal Confidentiality of Alcohol and Drug Abuse Patient Records regulations: The Federal rules restrict any use of the information to criminally investigate or prosecute any alcohol or drug abuse patient.[facility] HospitalIn the event this information is protected by the Federal Confidentiality of Alcohol and Drug Abuse Patient Records regulations: The Federal rules restrict any use of the information to criminally investigate or prosecute any alcohol or drug abuse patient.[facility] HospitalIn the event this information is protected by the Federal Confidentiality of Alcohol and Drug Abuse Patient Records regulations: The Federal rules restrict any use of the information to criminally investigate or prosecute any alcohol or drug abuse patient.[facility] HospitalIn the event this information is protected by the Federal Confidentiality of Alcohol and Drug Abuse Patient Records regulations: The Federal rules restrict any use of the information to criminally investigate or prosecute any alcohol or drug abuse patient.[facility] HospitalIn the event this information is protected by the Federal Confidentiality of Alcohol and Drug Abuse Patient Records regulations: The Federal rules restrict any use of the information to criminally investigate or prosecute any alcohol or drug abuse patient.[facility] HospitalIn the event this information is protected by the Federal Confidentiality of Alcohol and Drug Abuse Patient Records regulations: The Federal rules restrict any use of the information to criminally investigate or prosecute any alcohol or drug abuse patient.[facility] HospitalIn the event this information is protected by the Federal Confidentiality of Alcohol and Drug Abuse Patient Records regulations: The Federal rules restrict any use of the information to criminally investigate or prosecute any alcohol or drug abuse patient.[facility] HospitalIn the event this information is protected by the Federal Confidentiality of Alcohol and Drug Abuse Patient Records regulations: The Federal rules restrict any use of the information to criminally investigate or prosecute any alcohol or drug abuse patient.[facility] HospitalIn the event this information is protected by the Federal Confidentiality of Alcohol and Drug Abuse Patient Records regulations: The Federal rules restrict any use of the information to criminally investigate or prosecute any alcohol or drug abuse patient.[facility] HospitalIn the event this information is protected by the Federal Confidentiality of Alcohol and Drug Abuse Patient Records regulations: The Federal rules restrict any use of the information to criminally investigate or prosecute any alcohol or drug abuse patient.[facility] HospitalIn the event this information is protected by the Federal Confidentiality of Alcohol and Drug Abuse Patient Records regulations: The Federal rules restrict any use of the information to criminally investigate or prosecute any alcohol or drug abuse patient.[facility] HospitalIn the event this information is protected by the Federal Confidentiality of Alcohol and Drug Abuse Patient Records regulations: The Federal rules restrict any use of the information to criminally investigate or prosecute any alcohol or drug abuse patient.[facility] HospitalIn the event this information is protected by the Federal Confidentiality of Alcohol and Drug Abuse Patient Records regulations: The Federal rules restrict any use of the information to criminally investigate or prosecute any alcohol or drug abuse patient.[facility] HospitalIn the event this information is protected by the Federal Confidentiality of Alcohol and Drug Abuse Patient Records regulations: The Federal rules restrict any use of the information to criminally investigate or prosecute any alcohol or drug abuse patient.[facility] HospitalIn the event this information is protected by the Federal Confidentiality of Alcohol and Drug Abuse Patient Records regulations: The Federal rules restrict any use of the information to criminally investigate or prosecute any alcohol or drug abuse patient.[facility] HospitalIn the event this information is protected by the Federal Confidentiality of Alcohol and Drug Abuse Patient Records regulations: The Federal rules restrict any use of the information to criminally investigate or prosecute any alcohol or drug abuse patient.[facility] HospitalIn the event this information is protected by the Federal Confidentiality of Alcohol and Drug Abuse Patient Records regulations: The Federal rules restrict any use of the information to criminally investigate or prosecute any alcohol or drug abuse patient.[facility] HospitalIn the event this information is protected by the Federal Confidentiality of Alcohol and Drug Abuse Patient Records regulations: The Federal rules restrict any use of the information to criminally investigate or prosecute any alcohol or drug abuse patient.[facility] HospitalIn the event this information is protected by the Federal Confidentiality of Alcohol and Drug Abuse Patient Records regulations: The Federal rules restrict any use of the information to criminally investigate or prosecute any alcohol or drug abuse patient.[facility] HospitalIn the event this information is protected by the Federal Confidentiality of Alcohol and Drug Abuse Patient Records regulations: The Federal rules restrict any use of the information to criminally investigate or prosecute any alcohol or drug abuse patient.[facility] HospitalIn the event this information is protected by the Federal Confidentiality of Alcohol and Drug Abuse Patient Records regulations: The Federal rules restrict any use of the information to criminally investigate or prosecute any alcohol or drug abuse patient.[facility] HospitalIn the event this information is protected by the Federal Confidentiality of Alcohol and Drug Abuse Patient Records regulations: The Federal rules restrict any use of the information to criminally investigate or prosecute any alcohol or drug abuse patient.[facility] HospitalIn the event this information is protected by the Federal Confidentiality of Alcohol and Drug Abuse Patient Records regulations: The Federal rules restrict any use of the information to criminally investigate or prosecute any alcohol or drug abuse patient.[facility] HospitalIn the event this information is protected by the Federal Confidentiality of Alcohol and Drug Abuse Patient Records regulations: The Federal rules restrict any use of the information to criminally investigate or prosecute any alcohol or drug abuse patient.[facility] HospitalIn the event this information is protected by the Federal Confidentiality of Alcohol and Drug Abuse Patient Records regulations: The Federal rules restrict any use of the information to criminally investigate or prosecute any alcohol or drug abuse patient.[facility] Care Teams (unrecognized sec tion and content) Color Consultant Relationship Specialty Start Date End Date Prince Celeste MD [facility] [place] [address] PCP - General 05/20/09 Color Consultant Relationship Specialty Start Date End Date Prince Celeste MD [facility] [place] [address] PCP - General 05/20/09 Color Consultant Relationship Specialty Start Date End Date Prince Celeste MD [facility] [place] [address] PCP - General 05/20/09 Color Consultant Relationship Specialty Start Date End Date Prince Celeste MD [facility] [place] [address] PCP - General 05/20/09 Color Consultant Relationship Specialty Start Date End Date Prince Celeste MD [facility] [place] [address] PCP - General 05/20/09 Color Consultant Relationship Specialty Start Date End Date Prince Celeste MD [address] [facility] [place] [address] PCP - General 05/20/09 Color Consultant Relationship Specialty Start Date End Date Prince Celeste MD [address] [facility] [place] [address] PCP - General 05/20/09 Color Consultant Relationship Specialty Start Date End Date Prince Celeste MD [address] [facility] [place] [address] PCP - General 05/20/09 Color Consultant Relationship Specialty Start Date End Date Prince Celeste MD [address] [facility] [place] [address] PCP - General 05/20/09 Color Consultant Relationship Specialty Start Date End Date Prince Celeste MD [address] [facility] [place] [address] PCP - General 05/20/09 Color Consultant Relationship Specialty Start Date End Date Prince Celeste MD [address] [facility] [place] [address] PCP - General 05/20/09 Color Consultant Relationship Specialty Start Date End Date Prince Celeste MD [address] [facility] [place] [address] PCP - General 05/20/09 Color Consultant Relationship Specialty Start Date End Date Prince Celeste MD [address] [facility] [place] [address] PCP - General 05/20/09 Team Status: Active Member Role Status Dates Dr. Prince Celeste MD Family Provider Active Dr. Prince Celeste MD Primary Care Provider Active Team Status: Inactive Member Role Status Dates Dr. Prince Celeste MD Primary Care Provider Active Dr. Darrius Singh MD Attending Provider, Referr ing Provider Active Color Consultant Relationship Specialty Start Date End Date Prince Celeste MD [address] [place] [address] PCP - General 05/20/09 Team Status: Active Member Role Status Dates Dr. Prince Celeste MD Primary Care Provider Active Dr. Alayna Diamond DO Attending Provider Active Team Status: Inactive Member Role Status Dates Dr. Prince Celeste MD Primary Care Provider Active Dr. Alayna Diamond DO Attending Provider Active Team Status: Inactive Member Role Status Dates Dr. Prince Celeste MD Primary Care Provider Active Dr. Alayna Diamond DO Attending Provider, Referring P rovider Active Color Consultant Relationship Specialty Start Date End Date Prince Celeste MD [address] [place] [address] PCP - General 05/20/09 Team Status: Inactive Member Role Status Dates Dr. Prince Celeste MD Primary Care Provider, Refer ring Provider Active Dr. David Fox MD Attending Provider Active Team Status: Inactive Member Role Status Dates Dr. Prince Celeste MD Primary Care Provider Active Dr. David Fox MD Attending Provider, Referring Pr ovider Active Color Consultant Relationship Specialty Start Date End Date Prince Celeste MD [address] [place] [address] PCP - General 05/20/09 Team Status: Active Member Role Status Dates Dr. Prince Celeste MD Primary Care Provider Active Dr. David Fox MD Attending Provider Active Team Status: Active Member Role Status Dates Dr. Prince Celeste MD Primary Care Provider Active Omayra Chavarria WELL DRILL OPERATOR, WELL DRILL OPERATOR-C Attending Provider Active Color Consultant Relationship Specialty Start Date End Date Prince Celeste MD [address] [place] [address] PCP - General 05/20/09 Team Status: Inactive Member Role Status Dates Dr. Prince Celeste MD Primary Care Provider Active Yeison Crouch WELL DRILL OPERATOR, WELL DRILL OPERATOR-C Attending Provider, Referring Pro vider Active Color Consultant Relationship Specialty Start Date End Date Prince Celeste MD [address] [facility] [place] [address] PCP - General 05/20/09 Color Consultant Relationship Specialty Start Date End Date Prince Celeste MD [address] [facility] [place] [address] PCP - General 05/20/09 Color Consultant Relationship Specialty Start Date End Date Prince Celeste MD [address] [facility] [place] [address] PCP - General 05/20/09 Color Consultant Relationship Specialty Start Date End Date Prince Celeste MD [address] [facility] [place] [address] PCP - General 05/20/09 Team Status: Active Member Role Status Dates Dr. Prince Celeste MD Primary Care Provider Active Dr. Nigel Kaiser DO Emergency Provider Active Dr. Reynaldo Yin DO Admit Provider, At tending Provider, Other Provider Active Team Status: Active Member Role Status Dates Dr. Prince Celeste MD Primary Care Provider Active Dr. Nigel Kaiser DO Emergency Provider Active Dr. Reynaldo Yin DO Admit Provider, Other Provider A ctive Dr. Elliot Joyce MD Other Provider Active Dr. Srikanth Edwards MD Attending Provider, Other Provider Active Team Status: Inactive Member Role Status Dates Dr. Prince Celeste MD Primary Care Provider Active Dr. Nigel Kaiser DO Emergency Provider Active Dr. Reynaldo Yin DO Admit Provider, Other Provider A ctive Dr. Elliot Joyce MD Other Provider Active Dr. Srikanth Edwards MD Attending Provider Active Color Consultant Relationship Specialty Start Date End Date Prince Celeste MD [address] [place] [address] PCP - General 05/20/09 Color Consultant Relationship Specialty Start Date End Date Prince Celeste MD [address] [place] [address] PCP - General 05/20/09 Color Consultant Relationship Specialty Start Date End Date Prince Celeste MD [address] [place] [address] PCP - General 05/20/09 Color Consultant Relationship Specialty Start Date End Date Prince Celeste MD [address] [place] [address] PCP - General 05/20/09 Color Consultant Relationship Specialty Start Date End Date Prince Celeste MD [address] [place] [address] PCP - General 05/20/09 Color Consultant Relationship Specialty Start Date End Date rPince Celeste MD [address] [place] [address] PCP - General 05/20/09 Color Consultant Relationship Specialty Start Date End Date Prince Celeste MD [address] [place] [address] PCP - General 05/20/09 Team Status: Inactive Member Role Status Dates Dr. Prince Celeste MD Primary Care Provider Active Dr. Saul Woody DO Emergency Provider Active Color Consultant Relationship Specialty Start Date End Date Prince Celeste MD [address] [facility] [place] [address] PCP - General 05/20/09 Color Consultant Relationship Specialty Start Date End Date Prince Celeste MD [address] [facility] [place] [address] PCP - General 05/20/09 Color Consultant Relationship Specialty Start Date End Date Prince Celeste MD [address] [facility] [place] [address] PCP - General 05/20/09 Color Consultant Relationship Specialty Start Date End Date Prince Celeste MD [address] [place] [address] PCP - General 05/20/09 Color Consultant Relationship Specialty Start Date End Date Prince Celeste MD [address] [facility] [place] [address] PCP - General 05/20/09 Color Consultant Relationship Specialty Start Date End Date Prince Celeste MD [address] [facility] [place] [address] PCP - General 05/20/09 Color Consultant Relationship Specialty Start Date End Date Prince Celeste MD [address] [facility] [place] [address] PCP - General 05/20/09 Color Consultant Relationship Specialty Start Date End Date Prince Celeste MD [address] [facility] [place] [address] PCP - General 05/20/09 Color Consultant Relationship Specialty Start Date End Date Prince Celeste MD [address] [facility] [place] [address] PCP - General 05/20/09 Color Consultant Relationship Specialty Start Date End Date Prince Celeste MD [address] [place] [address] PCP - General 05/20/09 Color Consultant Relationship Specialty Start Date End Date Prince Celeste MD [address] [place] [address] PCP - General 05/20/09 Juanis Hawthorne, JACKSCREW WORKER.TEXTILE PIN WORKER [address] [place] [address] [facility] 03/31/24 Color Consultant Relationship Specialty Start Date End Date Prince Celeste MD [address] [place] [address] PCP - General 05/20/09 Juanis Hawthorne, JACKSCREW WORKER.TEXTILE PIN WORKER [address] [place] [address] [facility] 03/31/24 Color Consultant Relationship Specialty Start Date End Date Prince Celeste MD [address] [place] [address] PCP - General 05/20/09 Juanis Hawthorne, JACKSCREW WORKER.TEXTILE PIN WORKER [address] [facility] [place] [address] [facility] 03/31/24 Color Consultant Relationship Specialty Start Date End Date Prince Celeste MD [address] [facility] [place] [address] PCP - General 05/20/09 Juanis Hawthorne, JACKSCREW WORKER.TEXTILE PIN WORKER [address] [facility] [place] [address] [facility] 03/31/24 Color Consultant Relationship Specialty Start Date End Date Prince Celeste MD [address] [facility] [place] [address] PCP - General 05/20/09 Juanis Hawthorne, JACKSCREW WORKER.TEXTILE PIN WORKER [address] [facility] [place] [address] [facility] 03/31/24 Color Consultant Relationship Specialty Start Date End Date Prince Celeste MD [address] [facility] [place] [address] PCP - General 05/20/09 Juanis Hawthorne, JACKSCREW WORKER.TEXTILE PIN WORKER [address] [facility] [place] [address] [facility] 03/31/24 Color Consultant Relationship Specialty Start Date End Date Prince Celeste MD [address] [facility] [place] [address] PCP - General 05/20/09 Juanis Hawthorne, JACKSCREW WORKER.TEXTILE PIN WORKER [address] [facility] [place] [address] [facility] Internal Medicine 03/31/24 Team Status: Active Member Role Status Dates Dr. Prince Celeste MD Primary Care Provider Active Team Status: Inactive Member Role Status Dates Dr. Prince Celeste MD Primary Care Provider Active Start: May 15, 2024 End: May 15, 2024 Dr. Alayna Diamond DO Attending Provider Active Start: May 15, 2024 End: May 15, 2024 Dr. Alayna Diamond DO Referring Provider Active Start: May 15, 2024 End: May 15, 2024 Team Status: Inactive Member Role Status Dates Dr. Prince Celeste MD Primary Care Provider Active Start: July 07, 2024 End: July 07, 2024 Dr. Prince Celeste MD Referring Provider Active Start: July 07, 2024 End: July 07, 2024 Dr. David Fox MD Attending Provider Active Start: July 07, 2024 End: July 07, 2024 Team Status: Inactive Member Role Status Dates Dr. Prince Celeste MD Primary Care Provider Active Start: July 23, 2024 End: July 23, 2024 Dr. David Fox MD Attending Provider Active Start: July 23, 2024 End: July 23, 2024 Dr. David Fox MD Referring Provider Active Start: July 23, 2024 End: July 23, 2024 Team Status: Active Member Role Status Dates Dr. Prince Celeste MD Primary Care Provider Active Start: July 24, 2024 Dr. David Fox MD Attending Provider Active Start: July 24, 2024 Dr. David Fox MD Referring Provider Active Start: July 24, 2024 Dr. David Fox MD Other Provider Active Star t: July 24, 2024 Color Consultant Relationship Specialty Start Date End Date Prince Celeste MD [address] [place], [place] [address] PCP - General 05/20/09 Juanis Hawthorne, JACKSCREW WORKER.TEXTILE PIN WORKER [address] [place] [address] [facility] 03/31/24 Color Consultant Relationship Specialty Start Date End Date Prince Celeste MD [address] [place], [place] [address] PCP - General 05/20/09 Juanis Hawthorne, JACKSCREW WORKER.TEXTILE PIN WORKER [address] [facility] [place], [place] [address] [facility] 03/31/24 Color Consultant Relationship Specialty Start Date End Date Prince Celeste MD [address] [place], [place] [address] PCP - General 05/20/09 Juanis Hawthorne, JACKSCREW WORKER.TEXTILE PIN WORKER [address] [place], [place] [address] [facility] 03/31/24 Color Consultant Relationship Specialty Start Date End Date Prince Celeste MD [address] [place], [place] [address] PCP - General 05/20/09 Juanis Hawthorne, JACKSCREW WORKER.TEXTILE PIN WORKER [address] [place], [place] [address] [facility] 03/31/24 Reason for Visit (unrecogniz ed section and content) Reason Onset Date Comments Refill Request 08/08/2021 Reason Comments Results Reason Onset Date Comments Refill Request 08/30/2021 Reason Comments Medicare Wellness Exam Reason Comments Medication Update Reason Onset Date Comments Refill Request 03/03/2022 Reason Comments Patient Request Reason Comments F/U 6 months Reason Comments Patient Question Reason Comments Patient Request Patient Update Reason Comments New Pain Diabetic Foot Check Specialty Diagnoses / Procedures Referred By Contjayden t Referred To Contact Podiatry Diagnoses Type 2 diabetes mellitus with stage 3b chronic kidney disease, without long-term current use of insulin (HCC) Acute foot pain, left Procedures CONSULT TO PODIATRY OFFICE/OUTPATIENT [facility] 60-74 MINUTES Prince Celeste MD [address] [place] [address] Referral ID Status Reason Start Date Expiration Date Visits Requested Visits Authorized [id number] Pending Review PCP Requested Referral 05/05/2022 05/05/2023 1 1 Reason Onset Date Comments Refill Request 06/05/2022 Reason Onset Date Comments Refill Request 08/14/2022 Reason Onset Date Comments Allied Health Visit 07/19/2022 Medication A dherence Outreach Reason Comments Elbow Injury into left arm, pain and stiffness x 2-3 days, yard work Reason Comments Medicare Wellness Exam Recheck Reason Comments Ear Problem Cotton in right ear x 1 day Reason Comments Cough ST, runny nose x3 da ys Reason Comments Refill Request Reason Comments Established Patient Diabetic Foot Check Reason Onset Date Comments Refill Request 06/22/2023 Reason Comments Headache Reason Comments Patient Update Medication Request Reason Comments Transition Of Care Reason Comments Medication Problem Consult Reason Comments Patient Update Reason Onset Date Comments Tremor 08/07/2023 Reason Comments question Reason Onset Date Comments Refill Request 08/06/2023 Reason Comments Continued shingles pain Reason Comments Toe Injury right big toe, dropp ed wrench on it over 1 week ago Reason Onset Date Comments Refill Request 09/19/2023 Reason Onset Date Comments error 09/20/2023 Reason Onset Date Comments Population Health Navigation Outreach 10/01/2023 [place] [facility] Adherence Reason Comments Medication Question Reason Onset Date Comments Population Health Navigation Outreach 10/18/2023 [place] [facility] gap closure - [facility]SA Reason Comments low blood sugars Reason Comments Low Blood Sugar Reason Comments Medication questions Reason Comments Medicare Welness F/U 6 months Reason Onset Date Comments Population Health Navigation Outreach 01/16/2024 [place] Medication Adherence Reason Onset Date Comments Allied Health Visit 02/05/2024 Medication A dherence Outreach Reason Onset Date Comments Refill Request 03/31/2024 Patient Update 03/31/2024 Reason Onset Date Comments Refill Request 06/23/2024 Reason Comments Established Patient Follow Up Diabetic Foot Check Reason Comments Patient Update Patient Question Reason Onset Date Comments Refill Request 08/21/2024 Reason Comments Left Foot Pain Reason Comments Pain Left foot x 4 days Reason Onset Date Comments foot xray results 09/02/2024 (unrecognized sect ion and content) No Status Records FoundNo Status Records Found INFORMATION SOURCE (unrecogn ized section and content) DATE CREATED AUTHOR 09/01/2024 [facility] DATE CREATED AUTHOR AUTHOR'S DELORES AMADO 09/17/2024 [facility] FOR RECORDS PERTAINING TO PATIENTS WHO ARE OR HAVE BEEN ENROLLED IN A CHEMICAL DEPENDENCY/SUBSTANCEABUSE PROGRAM, SOME INFORMATION MAY BE OMITTED. This clinical summary was aggregated from multiple sources. Caution should be exercised in using it in the provision of clinical care. This summary normalizes information from multiple sources, and as a consequence, information in this document may materially change the coding, format and clinical context of patient data. In addition, data may be omitted in some cases. CLINICAL DECISIONS SHOULD BE BASED ON THE PRIMARY CLINICAL RECORDS. [facility]. provides no warranty or guarantee of the accuracy or completeness of information in this document.
== END | disposition home or self-care (01) ==
LOC: LAB 14:26
PROVIDERS: PCP Internal Medicine; Referring Provider Urology; Visit Provider Urology
DX: Z12.5 Encounter for screening for malignant neoplasm of prostate (principal)
CPT/HCPCS: 36415; 84153; G0103

== ENCOUNTER → 2025-01-22 | Outpatient (CLI) | payer MEDICARE, SELFPAY ==
[2025-01-22 12:16] LABS: AST(SGOT) 19 U/L (<=37); Alanine Aminotransfer ALT/SGPT 8 U/L (<=46); Albumin, Serum 4.2 g/dL (3.4-4.8); Alkaline Phosphatase 77 U/L (40-129); Anion Gap 13 (5-15); BUN 23 mg/dL (4-19); BUN/Creat Ratio 13.4 RATIO (10-20); Calcium,Total 9.7 mg/dL (7.6-11.0); Carbon Dioxide 27.5 mmol/L (21.0-32.0); Chloride 97 mmol/L (98-108); Cholesterol 121 mg/dL (<=200); Globulin 3.2 g/dL (2.2-4.2); Glucose 161 mg/dL (70-99); Low Density Lipoprotein Calc. 58 mg/dL; Potassium 4.2 mmol/L (3.3-5.1); Triglycerides 130 mg/dL; Very Low Density Lipoprotein 26 mg/dL (5-40); cholesterol:hdl ratio screen 3.24
== END | disposition home or self-care (01) ==
LOC: LAB 10:17
PROVIDERS: PCP Internal Medicine; Referring Provider Internal Medicine Cardiovascular Disease; Visit Provider Internal Medicine Cardiovascular Disease
DX: R42 Dizziness and giddiness (principal); I10 Essential (primary) hypertension; I25.10 Atherosclerotic heart disease of native coronary artery without angina pectoris
CPT/HCPCS: 36415; 80053; 80061

== ENCOUNTER → 2025-02-12 | Outpatient (CLI) | payer MEDICARE, SELFPAY ==
--- NOTE | 2025-02-12 14:08 | ECHOD_ITS ---
Reason For Study Reason For Study: AORTIC REGURGITATION Procedure This was a 2D Doppler, Color Flow transthoracic echocardiogram. Exam performed in department. Left Ventricle Normal size and thickness. Borderline LV systolic function. Estimated LVEF 50%. Stage 2 diastolic dysfunction. Right Ventricle Normal right ventricle. Atria The left atrium is moderately enlarged. The right atrium is mildly enlarged. Mitral Valve Moderate mitral valve regurgitation. Tricuspid Valve Moderate to severe tricuspid valve regurgitation. Estimated RVSP 69 mmHg. Aortic Valve Aortic sclerosis, no stenosis. Trivial aortic valve insufficiency. Pulmonic Valve The pulmonic valve is not well visualized. Trivial pulmonic valve insufficiency. Great Vessels Normal sized aortic root. Pericardium/Pleural No pericardial effusion. MMode/2D Measurements & Calculations LVIDd: 4.3 cm IVSd: 1.1 cm Ao root diam: 3.4 cm LVIDs: 3.5 cm LVPWd: 1.1 cm LA dimension: 4.4 cm RVDd: 4.3 cm FS: 19.1 % LAV(MOD-bp): 69.7 ml LVAd ap4: 24.8 cm2 SV(MOD-sp4): 30.8 ml LAV(MOD-bp) Indexed: 41.0 ml/m2 LVLd ap4: 7.2 cm SI(MOD-sp4): 18.1 ml/m2 LAV(MOD-sp2): 62.2 ml EDV(MOD-sp4): 70.2 ml LAV(MOD-sp4): 68.3 ml EDV(sp4-el): 72.2 ml LVAs ap4: 17.2 cm2 LVLs ap4: 6.4 cm ESV(MOD-sp4): 39.4 ml ESV(sp4-el): 39.2 ml EF(MOD-sp4): 43.9 % EF(sp4-el): 45.7 % SV(sp4-el): 32.9 ml LA A4 area: 23.1 cm2 LA dimension(2D): 4.4 cm RA A4 area: 12.6 cm2 Time Measurements MV dec time: 0.16 sec Doppler Measurements & Calculations MV E max kannan: 109.4 cm/sec Lat Peak E' Kannan: 8.2 cm/sec Med Peak E' Kannan: 4.8 cm/sec MV A max kannan: 65.8 cm/sec E/E' lat: 13.3 E/E' med: 22.9 MV E/A: 1.7 MV V2 max: 90.5 cm/sec Ao V2 max: 114.2 cm/sec MV max P.3 mmHg MV dec slope: 666.8 cm/sec2 Ao max P.2 mmHg MV V2 mean: 44.6 cm/sec Ao V2 mean: 75.8 cm/sec MV mean P.0 mmHg Ao mean P.7 mmHg MV V2 VTI: 35.0 cm Ao V2 VTI: 25.3 cm AV (velocity ratio): 1.0 LV V1 max: 112.4 cm/sec PA V2 max: 81.9 cm/sec TR max kannan: 367.2 cm/sec LV V1 max P.1 mmHg PA V2 mean: 59.8 cm/sec TR max P.9 mmHg LV V1 mean P.0 mmHg LV V1 mean: 82.1 cm/sec LV V1 VTI: 26.2 cm ECHO/Echo Complete Interpretation Summary Borderline LV systolic function. Estimated LVEF 50%. Stage 2 diastolic dysfunction. The left atrium is moderately enlarged. The right atrium is mildly enlarged. Moderate mitral valve regurgitation. Moderate to severe tricuspid valve regurgitation. Estimated RVSP 69 mmHg. Aortic sclerosis, no stenosis. Ordering Physician: David Fox Referring Physician: David Fox Performed By: Cristina Sevilla RCS
== END | disposition home or self-care (01) ==
LOC: CVS 14:03
PROVIDERS: PCP Internal Medicine; Referring Provider Internal Medicine Cardiovascular Disease; Visit Provider Internal Medicine Cardiovascular Disease
DX: I25.10 Atherosclerotic heart disease of native coronary artery without angina pectoris (principal)
CPT/HCPCS: 93306